=== PATIENT | male | born 1985 | race Two or more races ===

== ENCOUNTER 2016-10-15 13:04 | Emergency (ER) | payer MEDICARE, MEDICAID ==
--- NOTE | 2016-10-15 14:27 | ED ---
HPI Chest Pain - HPI Summary HPI Summary: Patient presents for evaluation of blood loss and chest pain. Blood loss is from the R AV graft last night when nearly finished with home hemodialysis. He felt as if nearly a pint of blood dropped on the floor before achieving hemostasis. Feels weak after the blood loss. Has had intermittent L chin paresthesia and inferior sternal chest pain for a while. Chest pain is palpable and non radiating. Paresthesia to the chin is intermittent after dialysis. No allev factors attempted for the chest pain. Pressure held for hemostasis to the AV graft. - History of Current Complaint Chief Complaint: EDChestPainROMI Time Seen by Provider: 10/15/16 14:13 Hx Obtained From: Patient, Family/Corporate Investigator - Girlfriend Onset/Duration: Started Days Ago Pain Intensity: 5 - Allergy/Home Medications Allergies/Adverse Reactions: Allergies Allergy/AdvReac Type Severity Reaction Status Date / Time Cephalexin [From Keflex] Allergy Unknown Unknown Verified 06/09/15 08:48 Reaction Details Penicillin V Allergy Unknown Unknown Verified 06/09/15 08:48 [From Penicillin VK Reaction Potassium] Details Vancomycin Allergy Unknown Unknown Verified 06/09/15 08:48 Reaction Details Cefazolin [From Ancef] Allergy Unknown Verified 06/09/15 08:48 Reaction Details Wasp Venom Protein Allergy Anaphylatic Verified 06/09/15 08:48 Shock contrast dyle Allergy Unknown Unknown Uncoded 06/09/15 08:48 Reaction Details PMH/Surg Hx/FS Hx/Imm Hx Endocrine/Hematology History: Reports: Hx Anticoagulant Therapy - HEPARIN DURING DIALYSIS, Hx Thyroid Disease - PARTIAL PARATHYROIDECTOMY Denies: Hx Diabetes Cardiovascular History: Reports: Hx Angina, Hx Hypertension Denies: Hx Coronary Artery Disease, Hx Hypercholesterolemia, Hx Myocardial Infarction, Hx Pacemaker/ICD, Hx Valvular Heart Disease Respiratory History: Denies: Hx Asthma, Hx Chronic Obstructive Pulmonary Disease (COPD) History: Reports: Hx Chronic Renal Failure - hemodialysis, Hx Renal Disease - dialysis , , wed Neurological History: Denies: Hx Dementia, Hx Seizures Psychiatric History: Denies: Hx Substance Abuse Infectious Disease History: Yes Infectious Disease History: Denies: Hx Hepatitis, Hx Human Immunodeficiency Virus (HIV), Traveled Outside the [place] in Last 30 Days - Social History Alcohol Use: Occasionally Substance Use Type: Reports: None Smoking Status (MU): Light Every Day Tobacco Smoker Review of Systems All Other Systems Reviewed And Are Negative: Yes Physical Exam Triage Information Reviewed: Yes Vital Signs On Initial Exam: Initial Vitals Temp Pulse Resp BP Pulse Ox 98.1 F 80 20 137/87 100 10/15/16 13:16 10/15/16 13:16 10/15/16 13:16 10/15/16 13:16 10/15/16 13:16 Vital Signs Reviewed: Yes Appearance: Positive: Well-Appearing, No Pain Distress, Well-Nourished Skin: Positive: Warm, Skin Color Reflects Adequate Perfusion, Dry, Other - R anterior thigh thrill at AVG Eyes: Positive: Normal, EOMI, ROC, Conjunctiva Clear Respiratory/Lung Sounds: Positive: Clear to Auscultation, Breath Sounds Present , Other - Reproducible inferior sternal chest ttp. Cardiovascular: Positive: Normal, RRR, Pulses are Symmetrical in both Upper and Lower Extremities Abdomen Description: Positive: Nontender, No Organomegaly, Soft Musculoskeletal: Positive: Normal, Strength/ROM Intact Neurological: Positive: Normal, Sensory/Motor Intact, Alert, Oriented to Person Place, Time, CN Intact II-III, Reflexes Intact, NV Bundle Intact Distally, Normal Gait. Negative: Babinski Bilateral, Cerebellar Dysfunction - [place] Coma Scale Coma Scale Total: 15 Diagnostics - Vital Signs Vital Signs Temp Pulse Resp BP Pulse Ox 10/15/16 13:16 98.1 F 80 20 137/87 100 - Laboratory Result Diagrams: 10/15/16 14:45 10/15/16 14:45 Lab Statement: Any lab studies that have been ordered have been reviewed, and results considered in the medical decision making process. Chest Pain Course/Dx - Chest Pain Differential Diagnosis/HQI/PQRI: Chest Wall, Other: - CXR, TNI, EKG for the chest pain. CBC for the blood loss. Electrolytes for the paresthesia, but otherwise, DC home. - Diagnoses Provider Diagnoses: Weakness Discharge - Discharge Plan Condition: Stable Disposition: HOME Patient Education Materials: End Stage Kidney Disease (ED) Referrals: David Orantes MD [Primary Care Provider] -
[2016-10-15 15:00] LABS: Hematocrit 27 % (42-52); Hemoglobin 9.1 g/dl (14.0-18.0); Mean Corpuscular HGB Conc 33 g/dl (31-36); Mean Corpuscular Hemoglobin 32 pg (27-31); Mean Corpuscular Volume 97 fL (80-94); Mean Platelet Volume 9 um3 (7.4-10.4); Red Blood Count 2.83 10^6/ul (4.0-5.4); Red Cell Distribution Width 18 % (10.5-15); White Blood Count 4.8 10^3/ul (3.5-10.8)
--- NOTE | 2016-10-15 15:13 | RAD ---
INDICATION: Chest pain. COMPARISON: Comparison is made with prior chest x-ray studies from July 16, 2011, April 14, 2013 and July 15, 2015. Correlation is also made with a prior CT of the abdomen and pelvis from February 06, 2012. TECHNIQUE: Dual-energy PA and lateral views of the chest were obtained. FINDINGS: The heart is within normal limits in size. There is a prominent nodular density present in the right paratracheal region at the level of the azygos arch. This is unchanged from the prior 2 studies. On the prior CT exam there is enlargement of the azygos vein possibly related to obstruction of the inferior vena cava which appears small. The lungs are clear. No pleural effusion or pneumothorax is seen. There is flattening of the diaphragms. IMPRESSION: 1. NO EVIDENCE FOR ACUTE FINDING. 2. FOCAL NODULAR DENSITY IN THE MEDIASTINUM IN THE RIGHT PARATRACHEAL REGION LIKELY REPRESENTING A PROMINENT AZYGOS VEIN NOTED ABOVE. THIS IS UNCHANGED AND COULD BE FURTHER EVALUATED WITH A CT OF THE CHEST, ABDOMEN AND PELVIS WITH IV CONTRAST IF NEEDED.
[2016-10-15 15:27] LABS: Albumin 4.2 g/dL (3.2-5.2); Calcium 6.8 mg/dL (8.6-10.3); EGFR African American 4.8 (>60); EGFR Non-African American 3.7 (>60); Globulin 2.9 g/dL (2-4); Potassium 4.6 mmol/L (3.5-5.0); Total Bilirubin 0.5 mg/dL (0.2-1.0); Total Protein 7.1 g/dL (6.4-8.9)
[2016-10-15 17:48] VITALS: BP 108/63
== END 2016-10-15 17:47 | disposition home or self-care (01) ==
LOC: ED 13:04
DX: R53.1 Weakness (principal); I12.0 Hypertensive chronic kidney disease with stage 5 chronic kidney disease or end stage renal disease; N18.6 End stage renal disease; Z99.2 Dependence on renal dialysis; F17.210 Nicotine dependence, cigarettes, uncomplicated; Z79.01 Long term (current) use of anticoagulants; Z88.0 Allergy status to penicillin; Z88.1 Allergy status to other antibiotic agents
CPT/HCPCS: 36415; 71020; 80053; 83735; 84484; 85027; 93005; 99282

== ENCOUNTER 2016-10-19 15:37 | Inpatient (IN) | payer MEDICARE, MEDICAID ==
[2016-10-19] MEDS ORDERED: Aspirin Low Dose CHEW TAB* 81 MG PO ONE (16:02)
--- NOTE | 2016-10-19 16:40 | RAD ---
Indication: Chest pain. Single frontal view of the chest performed at 1610 hours was reviewed. Comparison is made with previous exam dated October 15, 2016. No mediastinal shift is noted. Heart is of normal size and configuration. Lung jacinto appear clear. Again noted is a paramediastinal nodule likely represent prominent azygos vein which has been present as far back as 2010. No definite pneumonia is noted. IMPRESSION: NO ACTIVE CARDIOPULMONARY DISEASE IS NOTED.
[2016-10-19 18:05] LABS: Hematocrit 27 % (42-52); Mean Corpuscular HGB Conc 33 g/dl (31-36); Mean Corpuscular Hemoglobin 32 pg (27-31); Mean Corpuscular Volume 97 fL (80-94); Mean Platelet Volume 9 um3 (7.4-10.4); Red Cell Distribution Width 18 % (10.5-15); White Blood Count 5.8 10^3/ul (3.5-10.8)
[2016-10-19 18:20] LABS: ALT 15 U/L (7-52); Albumin 4.3 g/dL (3.2-5.2); Alkaline Phosphatase 60 U/L (34-104); BUN/Creatinine Ratio 6.1 (8-20); Blood Urea Nitrogen 111 mg/dL (6-24); CO2 Carbon Dioxide 21 mmol/L (22-32); Chloride 95 mmol/L (101-111); EGFR African American 3.9 (>60); EGFR Non-African American 3.1 (>60); Globulin 3.2 g/dL (2-4); Glucose 116 mg/dL (70-100); Sodium 132 mmol/L (133-145); Total Protein 7.5 g/dL (6.4-8.9)
[2016-10-19] MEDS ORDERED: HYDROmorphone INJ* 1 MG/ML CARPUJECT SYRINGE IV ONE (19:29)
--- NOTE | 2016-10-19 19:41 | RAD ---
Indication: Pleuritic chest pain. CT of the chest was performed after IV contrast administration. Coronal and sagittal reconstructed images were obtained. Inferior thyroid lobes are unremarkable. No mediastinal or hilar adenopathy is noted. The heart demonstrates no pericardial effusion. Prominent azygos vein is noted. The lung jacinto demonstrate no evidence of alveolar consolidation. The trachea and major bronchi appear patent. Bibasilar atelectasis is noted. There is dilated azygos vein noted. IMPRESSION: Bibasilar atelectasis. Prominent azygos veins. No pulmonary lesions are noted. No pericardial effusion is noted.
--- NOTE | 2016-10-19 20:40 | ED ---
Donna Storey Anna, scryuried for Chiqui Sanchez MD on 10/19/16 at 1624 . Progress - Progress Note Progress Note: Patient is a 31 y/o male coming to [facility] presenting with chest pain that began one week ago. He has additionally been experiencing coughing. The pain is exacerbated by deep breaths. Denies previous DVT, PE. His last dialysis treatment was yesterday at home. He was seen at [facility] for chest pain one week ago. Course/Dx - Diagnoses Provider Diagnoses: Chest pain The documentation as recorded by the Donna banks Anna accurately reflects the service I personally performed and the decisions made by , Chiqui Sanchez MD.
--- NOTE | 2016-10-19 20:42 | ED ---
Donna Storey Anna, scribed for Chiqui Sanchez MD on 10/19/16 at 1835 . HPI Chest Pain - HPI Summary HPI Summary: Patient is a 31 y/o male coming to [facility] presenting with gradual onset of worsening upper left-sided CP that began one week ago. He describes the severity of the pain as 7/10 currently, increased from 5/10 last week. He has been coughing. The pain is exacerbated by deep breaths and lying flat. Denies SOB, DVT, PE, or recent travel. His last dialysis treatment was yesterday. He has been on dialysis 4x/week for 16 years. He experienced similar chest pain in 2011, when he was diagnosed with pericarditis. - History of Current Complaint Chief Complaint: EDChestPainROMI Time Seen by Provider: 10/19/16 18:28 Hx Obtained From: Patient Onset/Duration: Started Weeks Ago Timing: Constant - Allergy/Home Medications Allergies/Adverse Reactions: Allergies Allergy/AdvReac Type Severity Reaction Status Date / Time Cephalexin [From Keflex] Allergy Unknown Unknown Verified 10/19/16 15:40 Reaction Details Penicillin V Allergy Unknown Unknown Verified 10/19/16 15:40 [From Penicillin VK Reaction Potassium] Details Vancomycin Allergy Unknown Unknown Verified 10/19/16 15:40 Reaction Details Cefazolin [From Ancef] Allergy Unknown Verified 10/19/16 15:40 Reaction Details Wasp Venom Protein Allergy Anaphylatic Verified 10/19/16 15:40 Shock contrast dyle Allergy Unknown Unknown Uncoded 10/19/16 15:40 Reaction Details PMH/Surg Hx/FS Hx/Imm Hx Endocrine/Hematology History: Reports: Hx Anticoagulant Therapy - HEPARIN DURING DIALYSIS, Hx Thyroid Disease - PARTIAL PARATHYROIDECTOMY Denies: Hx Diabetes Cardiovascular History: Reports: Hx Angina, Hx Hypertension Denies: Hx Coronary Artery Disease, Hx Hypercholesterolemia, Hx Myocardial Infarction, Hx Pacemaker/ICD, Hx Valvular Heart Disease Respiratory History: Denies: Hx Asthma, Hx Chronic Obstructive Pulmonary Disease (COPD) History: Reports: Hx Chronic Renal Failure - hemodialysis, Hx Renal Disease - dialysis tues, thurs, sat Neurological History: Denies: Hx Dementia, Hx Seizures Psychiatric History: Denies: Hx Substance Abuse Infectious Disease History: No Infectious Disease History: Denies: Hx Hepatitis, Hx Human Immunodeficiency Virus (HIV), Traveled Outside the US in Last 30 Days - Family History Known Family History: Negative: Cardiac Disease - Social History Occupation: Employed Full-time - [employer] Lives: With Family - with girlfriend Alcohol Use: None Substance Use Type: Reports: None Hx Tobacco Use: No Smoking Status (MU): Never Smoked Tobacco Review of Systems Positive: Chest Pain Positive: Cough. Negative: Shortness Of Breath All Other Systems Reviewed And Are Negative: Yes Physical Exam Triage Information Reviewed: Yes Vital Signs On Initial Exam: Initial Vitals Temp Pulse Resp BP Pulse Ox 98.4 F 83 20 129/86 100 10/19/16 15:40 10/19/16 15:40 10/19/16 15:40 10/19/16 15:40 10/19/16 15:40 Vital Signs Reviewed: Yes Appearance: Positive: Well-Appearing, No Pain Distress Skin: Positive: Warm, Skin Color Reflects Adequate Perfusion, Dry Eyes: Positive: EOMI, ROC ENT: Positive: Pharynx normal, TMs normal Neck: Positive: Supple, Nontender Respiratory/Lung Sounds: Positive: Clear to Auscultation, Breath Sounds Present. Negative: Rales, Rhonchi, Wheezes Cardiovascular: Positive: RRR, Other - no gallops. Negative: Murmur, Rub Abdomen Description: Positive: Nontender, Soft Bowel Sounds: Positive: Present Musculoskeletal: Positive: Strength/ROM Intact. Negative: Edema Left, Edema Right Neurological: Positive: Sensory/Motor Intact, Alert, Oriented to Person Place, Time, CN Intact II-III - II-XII Psychiatric: Positive: Affect/Mood Appropriate - Shari Coma Scale Coma Scale Total: 15 Diagnostics - Vital Signs Vital Signs Temp Pulse Resp BP Pulse Ox 10/19/16 17:19 121 17 95 10/19/16 17:17 128/83 10/19/16 15:40 98.4 F 83 20 129/86 100 - Laboratory Lab Results: Lab Results 10/19/16 10/19/16 10/19/16 Range/Units 15:35 15:35 15:35 WBC 5.8 (3.5-10.8) 10^3/ul RBC 2.80 L (4.0-5.4) 10^6/ul Hgb 9.0 L (14.0-18.0) g/dl Hct 27 L (42-52) % MCV 97 H (80-94) fL MCH 32 H (27-31) pg MCHC 33 (31-36) g/dl RDW 18 H (10.5-15) % Plt Count 153 (150-450) 10^3/ul MPV 9 (7.4-10.4) um3 Neut % (Auto) 66.8 (38-83) % Lymph % (Auto) 14.6 L (25-47) % Breathitt % (Auto) 6.6 (1-9) % Eos % (Auto) 10.6 H (0-6) % Baso % (Auto) 1.4 (0-2) % Absolute Neuts (auto) 3.8 (1.5-7.7) 10^3/ul Absolute Lymphs (auto) 0.8 L (1.0-4.8) 10^3/ul Absolute Monos (auto) 0.4 (0-0.8) 10^3/ul Absolute Eos (auto) 0.6 (0-0.6) 10^3/ul Absolute Basos (auto) 0.1 (0-0.2) 10^3/ul Absolute Nucleated RBC 0 10^3/ul Nucleated RBC % 0.1 Sodium 132 L (133-145) mmol/L Potassium TNP Chloride 95 L (101-111) mmol/L Carbon Dioxide 21 L (22-32) mmol/L Anion Gap TNP BUN 111 H (6-24) mg/dL Creatinine 18.20 H (0.67-1.17) mg/dL Est GFR ( Amer) 3.9 (>60) Est GFR (Non-Af Amer) 3.1 (>60) BUN/Creatinine Ratio 6.1 L (8-20) Glucose 116 H (70-100) mg/dL Lactic Acid 1.4 (0.5-2.0) mmol/L Calcium 6.0 L* (8.6-10.3) mg/dL Total Bilirubin 0.50 (0.2-1.0) mg/dL AST TNP ALT 15 (7-52) U/L Alkaline Phosphatase 60 (34-104) U/L Troponin I 0.00 (<0.04) ng/mL Total Protein 7.5 (6.4-8.9) g/dL Albumin 4.3 (3.2-5.2) g/dL Globulin 3.2 (2-4) g/dL Albumin/Globulin Ratio 1.3 (1-3) Result Diagrams: 10/19/16 15:35 10/19/16 15:35 Lab Statement: Any lab studies that have been ordered have been reviewed, and results considered in the medical decision making process. - Radiology CXR Xray Interpretation: No Acute Changes Radiology Interpretation Completed By: Radiologist - CT CT chest CT Interpretation: Positive (See Comments) CT Interpretation Completed By: Radiologist - IMPRESSION: Bibasilar atelectasis. Prominent azygos veins. No pulmonary lesions are noted. No pericardial effusion is noted. - EKG 1542 Cardiac Rate: NL - 81 bpm EKG Rhythm: Sinus Rhythm EKG Interpretation: No ST elevation EKG Comparison: No Significant Change - compared to EKG from 10/15/2016 Re-Evaluation - Re-Evaluation First Eval Re-Evaluation Time: 19:51 Comment: Discussed results and plan of care with patient. Patient agrees with plan. Chest Pain Course/Dx - Course Course Of Treatment: Pt has contrast allergy, did do a non contrasted study that eliminated a large pericardial effusion which patient was very concerned about. Pt may need a cta for this pleuritic pain and so the case was discussed with Dr. Boyd who will see him - Diagnoses Provider Diagnoses: Chest pain Discharge - Discharge Plan Condition: Stable Disposition: ADMITTED TO [facility] Patient Education Materials: Chest Pain (ED) Referrals: David Orantes MD [Primary Care Provider] - Additional Instructions: Follow up with primary care provider within 48 hours. Return to the emergency department for any new or worsening symptoms. The documentation as recorded by the Donna banks Anna accurately reflects the service I personally performed and the decisions made by me, Chiqui Sanchez MD.
[2016-10-19 21:08] LABS: Troponin I 0.01 ng/mL (<0.04)
[2016-10-19] MEDS ORDERED: Acetaminophen TAB* 325 MG PO PRN (21:39)
[2016-10-19] MEDS ORDERED: Zolpidem TAB* 10 MG PO PRN (21:39)
[2016-10-19] MEDS ORDERED: Morphine INJ* 2 MG/ML 1 ML CARPUJECT IV PRN (21:43)
[2016-10-19] MEDS ORDERED: Calcium Gluconate INJ* 1 GM in NS 0.9% 50 ML* 50 ML IVPB ONE (21:43)
[2016-10-19] MEDS: Heparin VIAL(*) 5000 UNITS/ML VIAL (FIVE THOUSAND) SUBCUT SCH (23:46)
[2016-10-20] MEDS ORDERED: HYDROmorphone INJ* 1 MG/ML CARPUJECT SYRINGE IV SLOW PU ONE (01:08)
[2016-10-20 03:06] LABS: EGFR African American 3.7 (>60); EGFR Non-African American 2.9 (>60); Potassium 5.3 mmol/L (3.5-5.0)
[2016-10-20 03:08] LABS: Calcium 6.1 mg/dL (8.6-10.3)
[2016-10-20] MEDS: HYDROmorphone INJ* 1 MG/ML CARPUJECT SYRINGE IV SLOW PU PRN ×3 (04:08→19:30)
[2016-10-20] MEDS: Heparin VIAL(*) 5000 UNITS/ML VIAL (FIVE THOUSAND) SUBCUT SCH ×2 (05:50→13:02)
[2016-10-20] MEDS: Vitamin B Complex TAB PO SCH (08:28)
[2016-10-20] MEDS: Calcium Acetate CAP* 667 MG PO SCH ×2 (08:28→13:02)
[2016-10-20] MEDS: Folic Acid TAB* 1 MG PO SCH (08:28)
[2016-10-20] MEDS: Calcium Carbonate CHEW TAB* 500 MG (TUMS) PO SCH (08:28)
[2016-10-20] MEDS: Calcitriol CAP* 0.25 MCG PO SCH (08:28)
--- NOTE | 2016-10-20 08:56 | HP ---
DATE OF ADMISSION: 10/19/16 CHIEF COMPLAINT: Chest pain. HISTORY OF PRESENT ILLNESS: The patient is a 31-year-old gentleman who said last day he started developing chest pain at home. It has progressively gotten worse. At its worse, it was 7/10 in severity. He says it was reminiscent of when he had pericarditis back in 2011. At that time, he had to be transferred and have it drained at [place]. It's not as bad as it was then , but the pain is somewhat similar. He says it is somewhat better when he leans forward as opposed to laying flat. He has no nausea, vomiting, no sweating. He's taken Tylenol which doesn't seem to help. He notes that a week before this all happened, had had a fistulogram with angioplasty under general anesthesia done at [place]. PAST MEDICAL HISTORY: Significant for 1. Polycystic kidney disease. 2. Three-quarters of his parathyroid has been removed. CURRENT MEDICATIONS: 1. Tums 2500 mg twice daily. 2. Calcitriol 0.5 mcg twice daily. 3. Calcium acetate 3335 mg 3x a day. 4. Nephro-Leticia one tablet daily. 5. Tylenol 175 mg every 6 hours as needed. 6. Epogen 10,000 units twice weekly. 7. Zolpidem 10 mg at bedtime as needed.. ALLERGIES/ADVERSE REACTIONS: 1. IV CONTRAST DYE, which he says is anaphylaxis. 2. CEPHALEXIN. 3. PENICILLIN. 4. CEPHAZOLIN. 5. Vancomycin 6. Wasp venom protein FAMILY HISTORY: Mother at 58; was blind. Father at 42, had an AK. SOCIAL HISTORY: Quit 2013, one-quarter pack per day for 12 years. No alcohol or recreational drug use. He works at [employer]. He is not , has no children; his girlfriend, Donna Terrell, , is his health care proxy. REVIEW OF SYSTEMS: A 14-point review of systems is completed with the patient. All pertinent positives and negatives are in the history of present illness; otherwise it is negative. PHYSICAL EXAMINATION GENERAL: A pleasant gentleman lying in bed in no acute distress. VITAL SIGNS: Blood pressure 129/86, pulse ox 100% on room air, respiratory rate 20 breaths per minute, heart rate 83 beats per minute, temperature 98.4 Degrees. HEENT: Normocephalic and atraumatic. Pupils are equal, round and reactive to light. Moist mucous membranes. NECK: Supple. No JVD, bruits, palpable thyroid or lymphadenopathy. CHEST: Clear to auscultation and percussion bilaterally. CARDIOVASCULAR: S1, S2 appreciated. ABDOMEN: Positive bowel sounds in all four quadrants. Soft, nontender, and nondistended. EXTREMITIES: No cyanosis, clubbing, or edema. NEUROLOGIC: Alert and oriented x3. Moves all extremities. SKIN: No distinct rashes or abnormalities. LABORATORY DATA: White blood cell count 5.8, hemoglobin 9.0, hematocrit 27, platelets 153. Sodium 132, chloride 95, CO2 21, BUN 111, creatinine 18.2, glucose 116, calcium 6.0. Troponin zero. D-dimer 753. EKG shows normal sinus rhythm at 81 beats/minute, normal axis, no acute ST-T wave changes. Chest x-ray shows no active cardiopulmonary disease is noted. Chest CT shows bibasilar atelectasis, pulmonary azygous veins, no pulmonary lesions are noted, no pericardial effusion noted. ASSESSMENT AND PLAN: 1. Chest pain - patient does have a history of pericarditis, but I do not detect any rubs and his EKG is pretty unremarkable. I will treat him right now with Dilaudid prn for pain. No NSAIDs at this point with his history of renal failure. I will get an echocardiogram in the morning. I've also ordered a venous VQ scan because of the patient's elevated D-dimer, although I have a low suspicion for PE. 2. End-stage renal disease - continue hemodialysis. 3. Hypocalcemia - we will replete calcium with calcium gluconate. 4. FEN - regular renal diet. 5. DVT prophylaxis - heparin subcu. 6. The patient is a full code. TIME SEEN: Over 75 minutes were spent on this H and P, more than 40 minutes of which were spent in direct [id number] contact with the patient in evaluation, physical exam, counseling, and coordination of care. CC: Dr. David Orantes * [id number]/CPS #: [id number] MTDD
[2016-10-20] MEDS ORDERED: NON FORMULARY MED* (B-Complex W/ C & Folic Acid [Nephro-Vite 0.8 Mg] 1 TAB) PO SCH (09:00)
[2016-10-20] MEDS ORDERED: Calcium Gluconate INJ* 2 GM in NS 0.9% 100 ML* 100 ML IV ONE (09:30)
--- NOTE | 2016-10-20 10:35 | ECHO ---
Patient: MARICHUY HATFIELD [facility] Rec#: [id number] : 1985 Date: 10/20/2016 Age: 31y Height: 157.48 cm / 62.0 in Weight: 64.41 kg / 142.0 lbs Sex: M BSA: 1.65 Room#: 432 Admit Date#: 10/19/2016 Type: Inpatient Referring: Juvenal Boyd MD Reading: Chente Hendricks MD Web Support Engineer: Dea Queen Web Support Engineer: Jen Mclean RN RDCS CC: David Orantes MD Transthoracic Echocardiogram Indication: Chest pain BP: 116/67 HR: 80 Rhythm: NSR Findings History: HTN, pericarditis 2011, Chronic Renal failure with dialysis, failed kidney transplant x2, partial parathyroidectomy. Technical Comments: The study quality is fair. Completed at 0940. Left Ventricle: The left ventricular chamber size is normal. Global left ventricular wall motion and contractility are within normal limits. Left ventricular systolic function is at the lower limits of normal. The estimated ejection fraction is 50-55%. Normal left ventricular diastolic filling is observed. Left Atrium: The left atrial chamber size is normal. Right Ventricle: The right ventricular cavity size is normal. The right ventricular global systolic function is low normal. Right Atrium: The right atrial cavity size is normal. Aortic Valve: The aortic valve is trileaflet. There is no evidence of aortic valve thickening. There is a trace of aortic regurgitation. There is no evidence of aortic stenosis. Mitral Valve: The mitral valve leaflets are mildly thickened. There is mild to moderate mitral regurgitation. There is no evidence of mitral stenosis. Tricuspid Valve: The tricuspid valve leaflets are normal. There is mild to moderate tricuspid regurgitation. There is evidence of mild pulmonary hypertension. There is no tricuspid stenosis. Pulmonic Valve: The pulmonic valve appears normal. There is a trace pulmonic regurgitation. There is no pulmonic stenosis. Pericardium: There is no significant pericardial effusion. Aorta: There is no dilatation of the ascending aorta. The aortic arch is not well visualized. There is no dilation of the aortic root. Pulmonary Artery: The main pulmonary artery appears normal. Venous: The inferior vena cava appears normal in size. There is an approximate 50% respiratory change in the inferior vena cava dimension. Conclusions Global left ventricular wall motion and contractility are within normal limits. Left ventricular systolic function is at the lower limits of normal. The estimated ejection fraction is 50-55%. Normal left ventricular diastolic filling is observed. The right ventricular global systolic function is low normal. There is a trace of aortic regurgitation. There is mild to moderate mitral regurgitation. There is mild to moderate tricuspid regurgitation. There is evidence of mild pulmonary hypertension. There is no significant pericardial effusion. Compard to study of 03/31/12, the LV function and valve function are the same. The previously seen large pericardial effusion is not present Measurements Name Value Normal Range RVDdMajor (2D) 3.5 cm (2.2 - 4.4) RAd ISD 4CH 4.6 cm (3.4 - 4.9) RA (A4C)W 3.6 cm (2.9 - 4.6) IVSd (2D) 0.7 cm (0.6 - 1) LVPWd (2D) 1 cm (0.6 - 1) LVIDd (2D) 4.1 cm (3.6 - 5.4) LVIDs (2D) 2.9 cm - LV FS (2D) 29 % (25 - 45) Aortic Annulus 1.8 cm (1.4 - 2.6) Ao root diameter (2D) 2.3 cm (2.1 - 3.5) Ascending Ao 2.4 cm (2.1 - 3.4) LA dimension (AP) 2D 4 cm (2.3 - 3.8) LAd ISD 4CH 4.8 cm (2.9 - 5.3) LA ISD 4CH W 4.4 cm (2.5 - 4.5) Name Value Normal Range LA ESV SP 4CH (A/L) 47 ml - LA ESV SP 2CH (A/L) 43 ml - LA ESV BP (A/L) 48 ml - LA ESV BP (A/L) index 28.84 ml/m2 - LA ESV SP 4CH (MOD) 45 ml - LA ESV SP 2CH (MOD) 42 ml - Name Value Normal Range MV E-wave Vmax 1.4 m/sec - MV deceleration time 194 msec - MV A-wave Vmax 0.6 m/sec - MV E:A ratio 2.2 ratio - LV septal e' Vmax 0.15 m/sec - LV lateral e' Vmax 0.16 m/sec - LV E:e' septal ratio 9.33 ratio - LV E:e' lateral ratio 8.75 ratio - Name Value Normal Range AV Vmax 1.3 m/sec - AV VTI 26.5 cm - AV peak gradient 6.85 mmHg - AV mean gradient 3.54 mmHg - LVOT Vmax 1.1 m/sec - LVOT VTI 20.19 cm - LVOT peak gradient 4.83 mmHg - LVOT mean gradient 2.63 mmHg - Name Value Normal Range TR Vmax 2.74 m/sec - TR peak gradient 30 mmHg - RAP 8 mmHg - RVSP 38 mmHg - IVC diameter 1.4 cm - Name Value Normal Range PV Vmax 0.87 m/sec - PV peak gradient 3.05 mmHg -
--- NOTE | 2016-10-20 10:58 | RAD ---
HISTORY: Chest pain, rule out PE COMPARISON: CT dated October 19, 2016 TECHNIQUE: Pulmonary ventilation/perfusion scintigraphy was performed with dynamic cine images and multiple planar images. DOSE: Ventilation: Xenon-133 10.9 millicuries, administered at 8:55 AM on October 20, 2016 Perfusion: Technetium 99m microaggregated albumin 6.1 millicuries, administered at 8:55 AM on October 20, 2016 FINDINGS: Ventilation: Homogeneous Perfusion: No unmatched defects IMPRESSION: NO UNMATCHED PERFUSION DEFECTS TO SUGGEST PULMONARY EMBOLISM
--- NOTE | 2016-10-20 12:46 | PN ---
Subjective Date of Service: 10/20/16 Interval History: Patient seen this morning. Reports continued chest pain, mostly unchanged although improves with IV pain medications and leaning forward. Couldn't tolerate PO this morning with N/V. Family History: Unchanged from Admission Social History: Unchanged from Admission Past Medical History: Unchanged from Admission Objective Active Medications: Acetaminophen (Tylenol Tab*) 975 mg PO Q6HR PRN Calcitriol (Rocaltrol Cap*) 0.5 mcg PO BID [facility] Calcium Acetate (Phoslo Cap*) 3,335 mg PO TID [facility] Calcium Carbonate (Tums*) 2,500 mg PO BID [facility] Folic Acid (Folvite Tab*) 1 mg PO DAILY [facility] Heparin Sodium (Porcine) (Heparin Vial(*)) 5,000 units SUBCUT Q8HR [facility] Hydromorphone HCl (Dilaudid Iv*) 1 mg IV SLOW PU Q4H PRN Morphine Sulfate (Morphine Inj (Syringe)*) 2 mg IV Q2H PRN Vitamin B Complex/Vitamin E (Complex B-100*) 1 tab PO DAILY [facility] Zolpidem Tartrate (Ambien Tab*) 10 mg PO BEDTIME PRN Vital Signs 10/19/16 10/19/16 10/19/16 22:00 22:30 22:51 Temperature 98.2 F Pulse Rate 79 77 Respiratory 21 20 18 Rate Blood Pressure 128/77 134/86 (mmHg) O2 Sat by Pulse 97 98 Oximetry 10/19/16 10/19/16 10/19/16 23:00 23:30 23:44 Temperature 97.6 F Pulse Rate 76 73 Respiratory 18 18 18 Rate Blood Pressure 121/78 136/87 (mmHg) O2 Sat by Pulse 98 100 Oximetry 10/20/16 10:48 Temperature Pulse Rate 72 Respiratory 16 Rate Blood Pressure 125/80 (mmHg) O2 Sat by Pulse Oximetry Oxygen Devices in Use Now: None Appearance: Young man, sitting in bed in NAD Eyes: No Scleral Icterus Ears/Nose/Mouth/Throat: Mucous Membranes Moist Neck: NL Appearance and Movements; NL JVP Respiratory: Symmetrical Chest Expansion and Respiratory Effort, - - Diminished in bases Cardiovascular: RRR, - - ?mild rub Abdominal: NL Sounds; No Tenderness; No Distention Lymphatic: No Cervical Adenopathy Extremities: No Edema Neurological: Alert and Oriented x 3 Result Diagrams: 10/19/16 15:35 10/20/16 02:20 Additional Lab and Data: Microbiology and Other Data: Microbiology 10/19/16 23:00 Nasal Screen MRSA (PCR)(MONSE) - Final Nasal Mrsa Negative Assess/Plan/Problems-Billing Assessment: Chest pain likely 2/2 mild pericarditis, hypocalcemia in a 31 yo M with hx of polycystic kidney disease on home HD - Patient Problems (1) Pericarditis Current Visit: Yes Comment: VQ scan, CT scan negative. Troponins negative. No effusion on echo. Patient refusing NSAIDs, will treat with Prednisone 40 mg daily. Will transition to PO pain medications. (2) Hypocalcemia Current Visit: Yes Comment: Significant. Redose with IV calcium gluconate. Recheck now. Continue home medications. (3) Polycystic kidney disease Current Visit: Yes Comment: on home HD. Spoke with Dr. Orantes, plan for HD tomorrow 10/21 (4) DVT prophylaxis Current Visit: Yes Comment: HSQ Status and Disposition: Inpatient for pericarditis, hypocalcemia, N/V
[2016-10-20] MEDS: predniSONE TAB* 20 MG PO SCH (13:02)
[2016-10-20 14:12] LABS: EGFR African American 3.6 (>60); EGFR Non-African American 2.8 (>60)
[2016-10-20] MEDS ORDERED: Sodium Polystyrene ORAL.SOL* 15 GM/60 ML BTL PO ONE (15:00)
[2016-10-20 15:34] LABS: Phosphorus 7.4 mg/dL (2.5-5.0)
[2016-10-20 18:35] LABS: Calcium 7.4 mg/dL (8.6-10.3); EGFR African American 3.6 (>60); EGFR Non-African American 2.8 (>60)
[2016-10-20 18:41] LABS: Potassium 6.6 mmol/L (3.5-5.0)
[2016-10-21] MEDS: oxyCODONE/Acetamin 5/325 MG* TAB PO PRN ×2 (00:02→08:02)
[2016-10-21] MEDS: Calcitriol CAP* 0.25 MCG PO SCH ×2 (00:04→08:02)
[2016-10-21] MEDS: Calcium Carbonate CHEW TAB* 500 MG (TUMS) PO SCH ×2 (00:05→08:01)
[2016-10-21] MEDS: Calcium Acetate CAP* 667 MG PO SCH ×2 (00:07→08:02)
[2016-10-21] MEDS: Heparin VIAL(*) 5000 UNITS/ML VIAL (FIVE THOUSAND) SUBCUT SCH ×3 (00:08→06:26)
[2016-10-21 05:25] LABS: BUN/Creatinine Ratio 5.2 (8-20); Calcium 7.5 mg/dL (8.6-10.3); EGFR African American 5.6 (>60); EGFR Non-African American 4.3 (>60); Potassium 4.6 mmol/L (3.5-5.0)
[2016-10-21 07:35] VITALS: BP 119/75
[2016-10-21] MEDS: Folic Acid TAB* 1 MG PO SCH (08:01)
[2016-10-21] MEDS: Vitamin B Complex TAB PO SCH (08:01)
[2016-10-21] MEDS: predniSONE TAB* 20 MG PO SCH (08:02)
--- NOTE | 2016-10-21 10:21 | DCNOTE ---
K elevated last night, unclear exactly why, underwent HD overnight and again this AM, K normalized. Patient seen at HD. States he is still having some chest discomfort but may be slightly better. Taking PO. No further N/V. On exam, lungs diminished in bases, otherwise clear, RRR, ?minimal rub, no LE edema. D/C home today on Prednisone and analgesics for short term. Should repeat BMP in 2 days. Ca normalized.
--- NOTE | 2016-10-22 00:55 | DS ---
DISCHARGE SUMMARY: DATE OF ADMISSION: 10/19/16 DATE OF DISCHARGE: 10/21/16 PRIMARY CARE PHYSICIAN: Dr. Orantes. PRINCIPAL DISCHARGE DIAGNOSIS: Mild pericarditis. SECONDARY DIAGNOSES: Polycystic kidney disease, on home hemodialysis, history of parathyroidectomy with resultant hypocalcemia. STUDIES DURING HOSPITALIZATION: Chest x-ray, impression: No active cardiopulmonary disease is noted. CT of the chest without contrast, impression : Bibasilar atelectasis, prominent azygous veins, no pulmonary lesions are noted , no pericardial effusion is noted. Transthoracic echocardiogram, conclusions: Normal left ventricular wall motion and contractility, EF 50% to 55%, normal left ventricular diastolic filling, low normal right ventricular global systolic function, trace aortic regurgitation , [id number]-[id number] mitral regurgitation, mild- to-moderate tricuspid regurgitation, mild pulmonary hypertension. No significant pericardial effusion. Compared to study of , the LV function and valve function are same. The previously seen large pericardial effusion is not present. V/Q scan, impression: No unmatched perfusion defects to suggest pulmonary embolism. DISCHARGE MEDICATION REGIMEN: 1. Prednisone 40 mg daily. 2. Percocet 1 tablet by mouth every 4 hours as needed for pain. 3. Ambien 10 mg by mouth at bedtime as needed for insomnia. 4. Epogen 10,000 injection twice weekly. 5. Tylenol 975 mg by mouth every 6 hours as needed for pain. 6. Nephro-Leticia 1 tablet by mouth daily. 7. Calcium acetate 3335 mg by mouth 3 times daily. 8. Calcitriol 0.5 mcg by mouth 2 times daily. 9. Tums 2500 mg by mouth 2 times daily. HISTORY OF PRESENT ILLNESS AND HOSPITAL SUMMARY: Please see the full history and physical by Dr. Juvenal Boyd for full details. Briefly, Mr. Peacock is a 31- year- old male with past medical history of as above as well as a pericarditis with pericardial effusion that required surgical drainage, presents in the hospital with chest pain similar to his previous bout of pericarditis. The patient had negative troponin and no significant EKG changes. He had possibly a mild rub on exam. Imaging as above was negative. The patient refused to take NSAIDs saying that he cannot because of his renal disease and dialysis. He was started on prednisone and transitioned from IV pain medications to oral. The patient was noted to be hyperkalemic during the hospitalization and required more urgent dialysis the night prior to discharge. He was also hypocalcemic on admission, which improved with calcium supplementation in addition to his home medications. The patient will be discharged home to complete a course of oral prednisone, follow up with Dr. Orantes as an outpatient. He was given a prescription to get a BMP checked in 2 days on 10/23/16. TIME SPENT: Total time spent on this discharge on this discharge was 45 minutes. This is the summary of the hospitalization. Please see the full medical record for further details. CC: Dr. Orantes* [id number]/[facility] #: [id number] MTDD
== END 2016-10-21 13:50 | disposition home or self-care (01) | DRG 315 ==
LOC: ED 15:37 → MEDTELE 21:43 → OBSVTOIN 10-20 12:10
PROVIDERS: ADMIT Internal Medicine; ATTEND Hospitalist
PROC: 5A1D00Z (ICD-10-PCS; principal; 2016-10-20)
DX: I31.9 Disease of pericardium, unspecified (principal); Q61.3 Polycystic kidney, unspecified; I27.2 Other secondary pulmonary hypertension; E83.51 Hypocalcemia; E87.5 Hyperkalemia; J98.11 Atelectasis; Z88.0 Allergy status to penicillin; Z88.8 Allergy status to other drugs, medicaments and biological substances; Z91.041 Radiographic dye allergy status; Z91.038 Other insect allergy status; I10 Essential (primary) hypertension; I08.1 Rheumatic disorders of both mitral and tricuspid valves; Z79.52 Long term (current) use of systemic steroids
CPT/HCPCS: 36415; 71010; 71250; 78582; 80048; 80053; 83605; 84100; 84484; 85025; 85379; 87641; 90935; 93005; 93306; 99285; 99406; A9270-GY; A9540; A9558; G0257; J0610; J1170; J1644; J2270; J7512

== ENCOUNTER 2017-01-21 09:23 | Emergency (ER) | payer MEDICARE, MEDICAID ==
--- NOTE | 2017-01-21 09:55 | ED ---
Complex/Multi-Sys Presentation - HPI Summary HPI Summary: Patient has a history of low calcium due to parathyroid damage status post thyroidectomy. Over the last few days he has noticed tingling in his lips and finger tips, as well as a positive Chvostek sign with cheek tap. He denies CP, SOB, KING or lightheadedness. He has been taking his regular medications for supplementation of his calcium. - History Of Current Complaint Chief Complaint: EDGeneral Time Seen by Provider: 01/21/17 09:31 Hx Obtained From: Patient Onset/Duration: Gradual Onset Timing: Constant Severity Currently: Moderate Severity Initially: Mild Associated Signs And Symptoms: Negative: Weakness, Palpitations - Allergies/Home Medications Allergies/Adverse Reactions: Allergies Allergy/AdvReac Type Severity Reaction Status Date / Time Cephalexin [From Keflex] Allergy Unknown Unknown Verified 10/19/16 15:40 Reaction Details Penicillin V Allergy Unknown Unknown Verified 10/19/16 15:40 [From Penicillin VK Reaction Potassium] Details Vancomycin Allergy Unknown Unknown Verified 10/19/16 15:40 Reaction Details Cefazolin [From Ancef] Allergy Unknown Verified 10/19/16 15:40 Reaction Details Wasp Venom Protein Allergy Anaphylatic Verified 10/19/16 15:40 Shock contrast dyle Allergy Unknown Unknown Uncoded 10/19/16 15:40 Reaction Details Home Medications: Home Medications Calcitriol CAP* [Rocaltrol CAP*] 0.5 mcg PO DAILY 01/21/17 [History Confirmed 01/21/17] PMH/Surg Hx/FS Hx/Imm Hx Endocrine/Hematology History: Reports: Hx Anticoagulant Therapy - HEPARIN DURING DIALYSIS, Hx Thyroid Disease - PARTIAL PARATHYROIDECTOMY Denies: Hx Diabetes Cardiovascular History: Reports: Hx Angina, Hx Hypertension, Other Cardiovascular Problems/Disorders - Pericarditis Denies: Hx Coronary Artery Disease, Hx Hypercholesterolemia, Hx Myocardial Infarction, Hx Pacemaker/ICD, Hx Valvular Heart Disease Respiratory History: Denies: Hx Asthma, Hx Chronic Obstructive Pulmonary Disease (COPD) History: Reports: Hx Chronic Renal Failure - hemodialysis 4x/week at home, Hx Renal Disease - dialysis tues, th, sat Sensory History: Reports: Hx Contacts or Glasses Opthamlomology History: Reports: Hx Contacts or Glasses Neurological History: Denies: Hx Dementia, Hx Seizures Psychiatric History: Denies: Hx Substance Abuse - Surgical History Surgery Procedure, Year, and Place: PARTIAL PARATHYROIDECTOMY, L ARM GRAFT, R LEG GRAFT, HEMODYALISIS CATHETER PLACEMENT, KIDNEY TRANSPLANT X2 - Immunization History Date of Tetanus Vaccine: Date of Influenza Vaccine: Fall 2015 Infectious Disease History: No Infectious Disease History: Denies: Hx Hepatitis, Hx Human Immunodeficiency Virus (HIV), Traveled Outside the [place] in Last 30 Days - Family History Known Family History: Positive: None Negative: Cardiac Disease - Social History Occupation: Disabled Lives: With Family Alcohol Use: None Substance Use Type: Reports: None Hx Tobacco Use: No Smoking Status (MU): Former Smoker Type: Cigarettes Amount Used/How Often: 1 pack lasted 4 days Length of Time of Smoking/Using Tobacco: 12 years Have You Smoked in the Last Year: No Review of Systems Negative: Fever, Chills Negative: Chest Pain Negative: Shortness Of Breath Negative: Myalgia Positive: Paresthesia. Negative: Headache, Weakness, Numbness All Other Systems Reviewed And Are Negative: Yes Physical Exam Triage Information Reviewed: Yes Vital Signs On Initial Exam: Initial Vitals Temp Pulse Resp BP Pulse Ox 97.8 F 91 17 127/76 100 01/21/17 09:24 01/21/17 09:24 01/21/17 09:24 01/21/17 09:24 01/21/17 09:24 Vital Signs Reviewed: Yes Appearance: Positive: Well-Appearing, No Pain Distress, Well-Nourished Skin: Positive: Warm, Skin Color Reflects Adequate Perfusion, Dry, Soft Head/Face: Positive: Normal Head/Face Inspection Eyes: Positive: EOMI, ROC, Conjunctiva Clear ENT: Positive: Hearing grossly normal, Pharynx normal Neck: Positive: Supple, Nontender, No Lymphadenopathy Respiratory/Lung Sounds: Positive: Clear to Auscultation, Breath Sounds Present Cardiovascular: Positive: RRR Abdomen Description: Positive: Nontender, Soft Bowel Sounds: Positive: Present Musculoskeletal: Positive: Strength/ROM Intact Neurological: Positive: Sensory/Motor Intact, Alert, Oriented to Person Place, Time, NV Bundle Intact Distally - altered sensation to light touch in finger tips, Normal Gait, Abnormal Reflex @ - +Chvostek sign Psychiatric: Positive: Affect/Mood Appropriate AVPU Assessment: Alert Diagnostics - Vital Signs Vital Signs Temp Pulse Resp BP Pulse Ox 01/21/17 09:24 97.8 F 91 17 127/76 100 - Laboratory Result Diagrams: 01/21/17 10:05 01/21/17 10:05 Lab Statement: Any lab studies that have been ordered have been reviewed, and results considered in the medical decision making process. Complex Multi-Symp Course/Dx - Diagnoses Differential Diagnoses/HQI/PQRI: Aspiration, Cardiac Ischemia, Closed Cranial Trauma, CVA, Metabolic Abnormality, Urinary Tract Infection Provider Diagnoses: Hypocalcemia - Physician Notifications Discussed Care Of Patient With: Dr. Orantes, PCP; Dr. Gifford, ED attending; Dr. Dacosta, [facility]. Time Discussed With Above Provider: 11:50 Instructed by Provider To: Have Pt Call For Appt. Discharge - Discharge Plan Condition: Stable Disposition: HOME Patient Education Materials: Hypocalcemia (ED) Referrals: David Orantes MD [Primary Care Provider] - Additional Instructions: Please call Dr. Orantes's office for an appointment in the next 1-3 days for evaluation. Return to the emergency department if symptoms worsen.
[2017-01-21 10:14] LABS: Hematocrit 42 % (42-52); Hemoglobin 13.5 g/dl (14.0-18.0); Mean Corpuscular HGB Conc 32 g/dl (31-36); Mean Corpuscular Hemoglobin 31 pg (27-31); Mean Corpuscular Volume 97 fL (80-94); Mean Platelet Volume 9 um3 (7.4-10.4); Red Blood Count 4.29 10^6/ul (4.0-5.4); Red Cell Distribution Width 18 % (10.5-15); White Blood Count 5.4 10^3/ul (3.5-10.8)
[2017-01-21 10:29] LABS: Albumin 4.8 g/dL (3.2-5.2); BUN/Creatinine Ratio 4.9 (8-20); Calcium 6.9 mg/dL (8.6-10.3); EGFR African American 4.7 (>60); EGFR Non-African American 3.7 (>60); Globulin 3.3 g/dL (2-4); Potassium 4.5 mmol/L (3.5-5.0); Total Bilirubin 0.6 mg/dL (0.2-1.0); Total Protein 8.1 g/dL (6.4-8.9)
[2017-01-21 11:03] LABS: Calcium (PTH Intact) 6.7 mg/dL (8.6-10.3)
[2017-01-21] MEDS ORDERED: Calcium Gluconate INJ* 3 GM in NS 0.9% 250 ML* 250 ML IVPB ONE (11:55)
[2017-01-21 16:19] VITALS: BP 135/85
== END 2017-01-21 16:43 | disposition home or self-care (01) ==
LOC: ED 09:23
DX: E83.51 Hypocalcemia (principal); Z79.01 Long term (current) use of anticoagulants; I12.9 Hypertensive chronic kidney disease with stage 1 through stage 4 chronic kidney disease, or unspecified chronic kidney disease; N18.4 Chronic kidney disease, stage 4 (severe); Z99.2 Dependence on renal dialysis; Z87.891 Personal history of nicotine dependence
CPT/HCPCS: 36415; 80053; 82310; 83970; 84100; 85025; 93005; 96360; 99282; J0610

== ENCOUNTER 2017-01-25 18:42 | Emergency (ER) | payer MEDICARE, MEDICAID ==
[2017-01-25 20:27] VITALS: BP 120/79
[2017-01-25 20:47] LABS: Hematocrit 40 % (42-52); Hemoglobin 13.1 g/dl (14.0-18.0); Mean Corpuscular HGB Conc 33 g/dl (31-36); Mean Corpuscular Hemoglobin 32 pg (27-31); Mean Corpuscular Volume 98 fL (80-94); Mean Platelet Volume 9 um3 (7.4-10.4); Red Blood Count 4.12 10^6/ul (4.0-5.4); Red Cell Distribution Width 18 % (10.5-15); White Blood Count 5.2 10^3/ul (3.5-10.8)
[2017-01-25 21:01] LABS: Albumin 4.9 g/dL (3.2-5.2); BUN/Creatinine Ratio 4.5 (8-20); Calcium 6.8 mg/dL (8.6-10.3); EGFR African American 4.7 (>60); EGFR Non-African American 3.7 (>60); Globulin 3.1 g/dL (2-4); Potassium 4.3 mmol/L (3.5-5.0); Total Bilirubin 0.6 mg/dL (0.2-1.0)
== END 2017-01-25 22:05 | disposition left against medical advice (07) ==
LOC: ED 18:42
DX: R20.2 Paresthesia of skin (principal); R53.1 Weakness; Z53.20 Procedure and treatment not carried out because of patient's decision for unspecified reasons
CPT/HCPCS: 36415; 80053; 85025; 93005; 99281

== ENCOUNTER 2017-02-08 12:20 | Observation (INO) | payer MEDICARE, MEDICAID ==
[2017-02-08] MEDS ORDERED: HYDROmorphone* 1 MG/ML 1 ML SYR IV ONE (13:32)
[2017-02-08] MEDS ORDERED: Ondansetron INJ* 2 MG/ML VIAL IV ONE (13:32)
[2017-02-08 13:55] LABS: Hematocrit 32 % (42-52); Hemoglobin 10.5 g/dl (14.0-18.0); Mean Corpuscular HGB Conc 33 g/dl (31-36); Mean Corpuscular Hemoglobin 31 pg (27-31); Mean Corpuscular Volume 95 fL (80-94); Mean Platelet Volume 9 um3 (7.4-10.4); Red Blood Count 3.37 10^6/ul (4.0-5.4); Red Cell Distribution Width 16 % (10.5-15); White Blood Count 4.6 10^3/ul (3.5-10.8)
--- NOTE | 2017-02-08 14:13 | RAD ---
INDICATION: Chest pain. COMPARISON: Comparison is made with a prior CT of the chest from October 19, 2016 and prior chest x-ray studies from July 16, 2011 and October 19, 2016. TECHNIQUE: A portable view of the chest was obtained. FINDINGS: The heart is within normal limits in size. There is a right paratracheal nodular density which is unchanged from prior studies and appears to correlate with a prominent azygos vein on the prior CT study. The lungs are clear. No pleural effusion is seen. IMPRESSION: 1. NO EVIDENCE FOR ACUTE FINDING. 2. RIGHT PARATRACHEAL NODULAR DENSITY WHICH IS UNCHANGED AND APPEARS TO CORRELATE WITH A PROMINENT AZYGOS VEIN.
[2017-02-08 14:19] LABS: Albumin 4.3 g/dL (3.2-5.2); BUN/Creatinine Ratio 6.2 (8-20); C Reactive Protein 26.93 mg/L (< 5.00); Calcium 6.8 mg/dL (8.6-10.3); EGFR African American 4.2 (>60); EGFR Non-African American 3.2 (>60); Globulin 2.8 g/dL (2-4); Potassium 5.7 mmol/L (3.5-5.0); Total Bilirubin 0.6 mg/dL (0.2-1.0); Total Protein 7.1 g/dL (6.4-8.9)
--- NOTE | 2017-02-08 15:33 | RAD ---
INDICATION: Swelling right thigh. COMPARISON: Correlation is made with a prior study from March 22, 2012. TECHNIQUE: Multiple real-time, color flow and Doppler tracings of the right lower extremity were obtained. FINDINGS: The common femoral, femoral, profunda femoral and popliteal veins all demonstrate normal augmentation with compression and phasic response with respiration. The right common femoral and distal femoral veins were not compressed due to patient's pain in this area. There is a hemodialysis graft present within the thigh which appears patent. The right external iliac vein appears patent. There is a complex fluid collection present within the proximal thigh measuring 11.2 x 2.2 x 4.5 cm. The posterior tibial and peroneal veins demonstrate normal compressibility and augmentation with compression. IMPRESSION: 1. SLIGHTLY LIMITED EXAM, NO EVIDENCE FOR DEEP VENOUS THROMBOSIS. 2. COMPLEX FLUID COLLECTION IN THE PROXIMAL THIGH SUSPICIOUS FOR A HEMATOMA OR SEROMA.
[2017-02-08] MEDS: oxyCODONE/Acetamin 5/325 MG* TAB PO PRN ×2 (17:28→21:59)
[2017-02-08] MEDS: predniSONE TAB* 20 MG PO SCH (17:29)
--- NOTE | 2017-02-08 19:03 | HP ---
CC: Dr. Orantes * HISTORY AND PHYSICAL: DATE OF ADMISSION: 02/08/17 PRIMARY CARE PHYSICIAN: Dr. Orantes. CHIEF COMPLAINT: Chest pain and thigh pain. HISTORY OF PRESENT ILLNESS: Mr. Peacock is a 31-year-old male with past medical history of polycystic kidney disease, status post renal transplant x2 that has failed now; end-stage renal disease, on hemodialysis; parathyroidectomy ; and pericarditis who presents to the hospital with chest pain and thigh pain. The patient's chest pain began this morning associated with some shortness of breath. He says the pain is very similar to the previous episode he had and was diagnosed with pericarditis. He states the pain is worse with a deep breath and seems to be improved when he leans forward. He also reports some worsening with exertion as well. Pain is still present and has been there since this morning. The patient is also reporting some pain in his right thigh. Reportedly underwent a vascular fistulogram at [place] on 01/29/17. He says that the procedure "didn't go as planned" and he developed a hematoma afterwards. He was treated with pain medications. He followed up again with the vascular surgeon on 02/05/17, still having significant pain. They stated that they did not feel there was any surgical intervention necessary and that he says that they told him with the patient's heparin that he receives in dialysis, the hematoma should resolve on its own. He states that it has not been getting any better and he is having difficulty ambulating and has needed to limp around. He also ran out of pain medications that they prescribed for him. In the emergency department, the patient was found to have hyperkalemia and an elevated , although not terribly high for this patient, creatinine Dr. Orantes was consulted and recommended dialysis this evening and observation of the patient overnight. PAST MEDICAL HISTORY: 1. End-stage renal disease, on dialysis. 2. Polycystic kidney disease. 3. Parathyroidectomy with resultant hypocalcemia. 4. Pericarditis. PAST SURGICAL HISTORY: 1. Fistula. 2. Renal transplant x2. 3. Parathyroid removal. 4. Appendectomy. HOME MEDICATIONS: 1. Calcitriol 0.75 mcg by mouth 2 times daily. 2. Calcium carbonate 1500 mg by mouth 3 times daily. 3. Percocet 1 tablet by mouth every 4 hours as needed for pain. 4. Calcium acetate 3335 mg by mouth 3 times daily with meals. 5. Epogen 10,000 units injected twice weekly. 6. Nephro-Leticia 1 tablet by mouth daily. 7. Tylenol 975 mg by mouth every 6 hours as needed for pain. ALLERGIES: The patient reports allergies to VANCOMYCIN, KEFLEX, PENICILLIN, CEFAZOLIN. FAMILY HISTORY: Mother at 58. Father at 42 of CAD. SOCIAL HISTORY: The patient is a former smoker, about quarter pack a day times 12 years. Rarely drinks alcohol. Denies any illicit drug use. REVIEW OF SYSTEMS: A 12-point review of systems negative except for that as noted in the HPI. PHYSICAL EXAMINATION GENERAL: The patient is a young man lying in bed in no apparent distress. VITAL SIGNS: On admission, temperature 97.8, heart rate of 84, respiratory rate of 20, O2 saturation 100% on room air, blood pressure 136/87. HEENT: Head: Normocephalic, atraumatic. Eyes: Pupils equal, round, reactive to light and accommodation. Anicteric sclerae. ENT: Moist mucous membranes. No cervical adenopathy. LUNGS: Clear to auscultation bilaterally. No wheezes, rales, or rhonchi. CARDIOVASCULAR: Regular rate and rhythm. No murmurs, gallops, or rubs. ABDOMEN: Soft, nontender, nondistended. Bowel sounds positive. EXTREMITIES: The patient with some mild lower extremity edema bilaterally. Scar with suture on the right thigh with a fairly wide, firm tender area. No significant bruising noted on the skin. No discharge. The patient has a left upper extremity fistula. NEUROLOGIC: The patient is alert and oriented x3. No focal neurologic deficits. LABS AND DIAGNOSTICS: White blood cell count of 4.6, hematocrit of 32, platelets of 122,000. INR 1.03. Sodium 132, potassium 5.7, chloride of 101, carbon dioxide 17, BUN of 107, creatinine 17.3, glucose 125, calcium 6.8. Troponin was 0.00. CRP of 26. Brain natriuretic peptide of 319. EKG personally reviewed shows normal sinus rhythm. Maybe some mild peaked T waves. Chest x-ray showed no acute disease. Right lower extremity Doppler shows no evidence of DVT. Additional fluid collection in the thigh read as a likely hematoma or seroma, 11 x 2 x 4.5 cm. ASSESSMENT AND PLAN: Chest pain likely due to pericarditis and right thigh pain from hematoma in a 31-year-old male with past medical history of end-stage renal disease, on dialysis; hypocalcemia after parathyroidectomy; and a history of pericarditis. 1. Chest pain: It seems the patient's symptoms are likely due to a recurrence of pericarditis. I do not appreciate any rub on exam and EKG is fairly unremarkable. I will get another echocardiogram to ensure there is no evidence of an effusion. As noted, the patient refuses NSAIDs due to his kidney disease. I will start him on oral prednisone 40 mg by mouth daily. Initial troponin was negative. We will check one more troponin, although with the presence of the chest pain all morning, I doubt this is due to acute coronary syndrome. 2. Thigh pain: Unfortunately for the patient, there is not much we can offer him here aside from some analgesics. He will need to follow up with his outpatient vascular surgeons to determine any more definitive treatment. 3. End-stage renal disease, on dialysis, and hyperkalemia: The patient will be dialyzed and Dr. Orantes is aware, has arranged for a session this evening. We will recheck the patient's BMP in the morning. I do not think that he needs any Kayexalate at this time. We will continue the patient's home calcium supplements and Nephro-Leticia. 4. Hypocalcemia: Continue calcium supplements. 5. DVT prophylaxis: SCDs. 6. Code status: The patient is full code. TIME SPENT: Total time spent on this admission, 40 minutes with over half the time spent [id number] with the patient in counseling and coordinating care. [id number]/[facility] #: [id number] ZORA
[2017-02-08] MEDS ORDERED: Calcium Carbonate CHEW TAB* 500 MG (TUMS) PO SCH (21:00)
[2017-02-08] MEDS ORDERED: Calcium Acetate CAP* 667 MG PO SCH (21:00)
[2017-02-08] MEDS: Calcitriol CAP* 0.25 MCG PO SCH (21:47)
[2017-02-08] MEDS: Sodium Bicarbonate (ANTACID)* 650 MG TAB PO SCH (21:49)
[2017-02-09] MEDS: oxyCODONE/Acetamin 5/325 MG* TAB PO PRN (01:35)
[2017-02-09 05:28] LABS: BUN/Creatinine Ratio 5.4 (8-20); Calcium 7.9 mg/dL (8.6-10.3); EGFR African American 7.5 (>60); EGFR Non-African American 5.8 (>60); Phosphorus 5.5 mg/dL (2.5-5.0); Potassium 4.9 mmol/L (3.5-5.0)
[2017-02-09] MEDS ORDERED: Calcium Acetate CAP* 667 MG PO SCH (07:30)
[2017-02-09 07:49] VITALS: BP 120/74
[2017-02-09] MEDS: Calcitriol CAP* 0.25 MCG PO SCH (08:48)
[2017-02-09] MEDS: Sodium Bicarbonate (ANTACID)* 650 MG TAB PO SCH (08:48)
[2017-02-09] MEDS: predniSONE TAB* 20 MG PO SCH (08:49)
[2017-02-09] MEDS ORDERED: Vitamin B Complex TAB PO SCH (09:00)
[2017-02-09] MEDS ORDERED: Folic Acid TAB* 1 MG PO SCH (09:00)
--- NOTE | 2017-02-09 09:09 | PN ---
Subjective Date of Service: 02/09/17 Interval History: Pt is feeling better today. He states the prednisone has helped his chest pain ( now resolved). He states his leg is still painful. He states the percocet helps his pain but he only had 5 tablets which he used. He had no issues with accessing his UE fistula last night for dialysis. Objective Active Medications: Calcitriol (Rocaltrol Cap*) 0.75 mcg PO BID [facility] Last Admin: 02/09/17 08:48 Dose: 0.75 mcg Calcium Acetate (Phoslo Cap*) 3,335 mg PO AC [facility] Last Admin: 02/09/17 08:50 Dose: 3,335 mg Calcium Carbonate (Tums*) 1,500 mg PO AC [facility] Folic Acid (Folvite Tab*) 0.5 mg PO DAILY [facility] Last Admin: 02/09/17 08:49 Dose: 0.5 mg Oxycodone/Acetaminophen (Percocet 5/325 Tab*) 2 tab PO Q4H PRN PRN Reason: PAIN Last Admin: 02/09/17 01:35 Dose: 2 tab Prednisone (Deltasone Tab*) 40 mg PO DAILY [facility] Last Admin: 02/09/17 08:49 Dose: 40 mg Sodium Bicarbonate (Sodium Bicarbonate (Antacid)*) 1,300 mg PO BID [facility] Last Admin: 02/09/17 08:48 Dose: 1,300 mg Vitamin B Complex/Vitamin E (Complex B-100*) 1 tab PO DAILY [facility] Last Admin: 02/09/17 08:48 Dose: 1 tab Vital Signs 02/08/17 02/08/17 02/08/17 16:30 17:25 17:28 Temperature 98.1 F Pulse Rate 78 77 Respiratory 17 16 16 Rate Blood Pressure 122/77 130/89 (mmHg) O2 Sat by Pulse 100 100 Oximetry 02/08/17 02/08/17 02/08/17 21:49 21:59 23:16 Temperature Pulse Rate 81 83 Respiratory 18 18 20 Rate Blood Pressure 137/80 145/83 (mmHg) O2 Sat by Pulse 100 99 Oximetry 02/09/17 02/09/17 02/09/17 01:35 03:35 04:25 Temperature 98.2 F Pulse Rate 69 Respiratory 16 16 20 Rate Blood Pressure 119/64 (mmHg) O2 Sat by Pulse 98 Oximetry 02/09/17 07:15 Temperature 97.8 F Pulse Rate 65 Respiratory 14 Rate Blood Pressure 120/74 (mmHg) O2 Sat by Pulse 97 Oximetry Oxygen Devices in Use Now: None Appearance: Young male who appears older than his stated age sitting on the edge of the bed, NAD Eyes: No Scleral Icterus Ears/Nose/Mouth/Throat: Mucous Membranes Moist Respiratory: Symmetrical Chest Expansion and Respiratory Effort, Clear to Auscultation Cardiovascular: NL Sounds; No Murmurs; No JVD, RRR Abdominal: NL Sounds; No Tenderness; No Distention Extremities: No Clubbing, Cyanosis Skin: No Rash or Ulcers, No Nodules or Sclerosis Neurological: Alert and Oriented x 3 Result Diagrams: 02/08/17 13:47 02/09/17 04:21 Assess/Plan/Problems-Billing Mr Peacock is a 31 yo M who has a h/o ESRD secondary to polycystic kidney disease and h/o pericarditits who presented to the ER with c/o chest pain and R thigh pain after undergoing fistulogram on 01/29/17. - Patient Problems (1) Pericarditis Current Visit: Yes Status: Acute Code(s): I31.9 - DISEASE OF PERICARDIUM, UNSPECIFIED SNOMED Code(s): 4914848 Comment: It is suspected the patient's chest pain is secondary to pericarditis given his history/symptoms. He was started on prednisone 40mg daily and will need to taper this as an outpatient. Echo is pending. He states his pain is much improved with the prednisone. (2) Right thigh pain Current Visit: Yes Status: Acute Code(s): M79.651 - PAIN IN RIGHT THIGH SNOMED Code(s): 84552596 Comment: Secondary to hematoma. He is in the early phase of this resolving. Will send Rx for percocet for the patient to use for severe pain. (3) ESRD (end stage renal disease) on dialysis Current Visit: Yes Status: Acute Code(s): N18.6 - END STAGE RENAL DISEASE; Z99.2 - DEPENDENCE ON RENAL DIALYSIS SNOMED Code(s): 215505513 Comment: Continue home hemodialysis 4day/week. Hyperkalemia noted yesterday has resolved after dialysis last evening. He has an appointment with Dr. Orantes today at 11am. He has been instructed to keep that appointment. (4) DVT prophylaxis Current Visit: Yes Status: Acute Code(s): GBI7137 - SNOMED Code(s): 025803594 Comment: ambulation (5) Full code status Current Visit: Yes Status: Acute Code(s): Z78.9 - OTHER SPECIFIED HEALTH STATUS SNOMED Code(s): 025806000 Status and Disposition: d/c home after echo
--- NOTE | 2017-02-09 10:06 | ECHO ---
Patient: MARICHUY HATFIELD [facility] Rec#: [id number] : 1985 Date: 02/09/2017 Age: 31y Height: 157.5 cm / 62.0 in Weight: 64.4 kg / 141.9 lbs Sex: M BSA: 1.7 Room#: 433 Admit Date#: 02/09/2017 Type: Inpatient Referring: JENNIFER BETANCOURT MD Reading: Chente Hendricks MD Mica Washer Gluer: Jen Mclean RN RDCS CC: David Orantes MD Transthoracic Echocardiogram Indication: Chest pain BP: 119/64 HR: 72 Rhythm: NSR Findings History: HTN, pericarditis 2011, polycystic kidney disease, ESRD, dialysis, failed kidney transplant x2, partial parathyroidectomy, hypocalcemia Technical Comments: The study quality is fair. Completed at 0900. Left Ventricle: The left ventricular chamber size is normal. Global left ventricular wall motion and contractility are within normal limits. Left ventricular systolic function is at the lower limits of normal. The estimated ejection fraction is 50-55%. Normal left ventricular diastolic filling is observed. Left Atrium: The left atrial chamber size is normal. Right Ventricle: The right ventricular cavity size is normal. The right ventricular global systolic function is low normal. Right Atrium: The right atrial cavity size is normal. There is evidence of an atrial septal aneurysm. Aortic Valve: The aortic valve is trileaflet. The aortic valve leaflets are mildly thickened. There is a trace of aortic regurgitation. There is no evidence of aortic stenosis. Mitral Valve: The mitral valve leaflets are mildly thickened. There is mild to moderate mitral regurgitation. There is no evidence of mitral stenosis. Tricuspid Valve: The tricuspid valve leaflets are normal. There is mild to moderate tricuspid regurgitation. The tricuspid regurgitant jet is wall impinging. There is evidence of mild to moderate pulmonary hypertension. There is no tricuspid stenosis. Pulmonic Valve: The pulmonic valve appears normal. There is a trace pulmonic regurgitation. There is no pulmonic stenosis. Pericardium: There is no significant pericardial effusion. Aorta: There is no dilatation of the ascending aorta. There is no dilatation of the aortic arch. The aortic root is normal in size. Pulmonary Artery: The main pulmonary artery appears normal. Venous: The inferior vena cava appears normal in size. There is less than 50% respiratory change in the inferior vena cava dimension. Summary: There are no significant changes when compared to the previous study done on 11/16/16 Conclusions Global left ventricular wall motion and contractility are within normal limits. Left ventricular systolic function is at the lower limits of normal. The estimated ejection fraction is 50-55%. The right ventricular global systolic function is low normal. There is a trace of aortic regurgitation. There is mild to moderate mitral regurgitation. There is mild to moderate tricuspid regurgitation. There is evidence of mild to moderate pulmonary hypertension. There is no significant pericardial effusion. There is no dilatation of the ascending aorta. There are no significant changes when compared to the previous study done on 11/16/16 Measurements Name Value Normal Range RVDdMajor (2D) 3.1 cm (2.2 - 4.4) RAd ISD 4CH 4.4 cm (3.4 - 4.9) RA (A4C)W 3.6 cm (2.9 - 4.6) IVSd (2D) 0.91 cm (0.6 - 1) LVPWd (2D) 0.88 cm (0.6 - 1) LVIDd (2D) 4.3 cm (3.6 - 5.4) LVIDs (2D) 3.2 cm - LV FS (2D) 26 % (25 - 45) Aortic Annulus 1.8 cm (1.4 - 2.6) Ao root diameter (2D) 2.5 cm (2.1 - 3.5) Ascending Ao 2.9 cm (2.1 - 3.4) Aortic arch 2.5 cm (1.8 - 3.4) LA dimension (AP) 2D 3.6 cm (2.3 - 3.8) LAd ISD 4CH 5.1 cm (2.9 - 5.3) LA ISD 4CH W 3.7 cm (2.5 - 4.5) Name Value Normal Range LA ESV SP 4CH (A/L) 39 ml - LA ESV SP 2CH (A/L) 49 ml - LA ESV BP (A/L) 44 ml - LA ESV BP (A/L) index 27 ml/m2 - LA ESV SP 4CH (MOD) 36 ml - LA ESV SP 2CH (MOD) 48 ml - Name Value Normal Range MV E-wave Vmax 1.3 m/sec - MV deceleration time 134 msec - MV A-wave Vmax 0.96 m/sec - MV E:A ratio 1.4 ratio - LV septal e' Vmax 0.1 m/sec - LV lateral e' Vmax 0.14 m/sec - LV E:e' septal ratio 13 ratio - LV E:e' lateral ratio 9.3 ratio - Name Value Normal Range AV Vmax 1.7 m/sec - AV VTI 37.5 cm - AV peak gradient 11 mmHg - AV mean gradient 6 mmHg - LVOT Vmax 1.5 m/sec - LVOT VTI 29.5 cm - LVOT peak gradient 9 mmHg - LVOT mean gradient 4 mmHg - BARTOLO Vmax 0.9 m/sec - Name Value Normal Range TR Vmax 2.9 m/sec - TR peak gradient 34 mmHg - RAP 8 mmHg - RVSP 42 mmHg - IVC diameter 2 cm - Name Value Normal Range PV Vmax 0.9 m/sec -
[2017-02-09] MEDS ORDERED: Calcium Carbonate CHEW TAB* 500 MG (TUMS) PO SCH (19:00)
--- NOTE | 2017-02-09 19:19 | ED ---
Kevin Storey SooYoung, scribed for Boogie Sims MD on 02/08/17 at 1324 . HPI Chest Pain - HPI Summary HPI Summary: A 31 y/o M presents to ED with mid-sternal CP onset this AM. Pt "felt off" from the moment he woke up. Prev episode of pericarditis once with and once without fluid. Associated sx: SOB, muscle weakness. Aggravating factors: exertion. Alleviating factors: rest. Pt is on home dialysis as needed, last done [address] Roque. Recent dx: hematoma in RLE. - History of Current Complaint Chief Complaint: EDChestPainROMI Time Seen by Provider: 02/08/17 12:56 Hx Obtained From: Patient, Family/Work From Home Onset/Duration: Started Hours Ago, Still Present Timing: Constant, Lasting Hours Initial Severity: Moderate Current Severity: Moderate Pain Intensity: 5 Pain Scale Used: 0-10 Numeric Chest Pain Location: Mid Sternal Aggravating Factor(s): Exertion Alleviating Factor(s): Rest Associated Signs and Symptoms: Positive: Shortness of Breath, Other: - pos: muscle weakness - Additional Pertinent History Primary Care Physician: [id number] - Allergy/Home Medications Allergies/Adverse Reactions: Allergies Allergy/AdvReac Type Severity Reaction Status Date / Time Cephalexin [From Keflex] Allergy Unknown Unknown Verified 10/19/16 15:40 Reaction Details Penicillin V Allergy Unknown Unknown Verified 10/19/16 15:40 [From Penicillin VK Reaction Potassium] Details Vancomycin Allergy Unknown Unknown Verified 10/19/16 15:40 Reaction Details Cefazolin [From Ancef] Allergy Unknown Verified 10/19/16 15:40 Reaction Details Wasp Venom Protein Allergy Anaphylatic Verified 10/19/16 15:40 Shock contrast dyle Allergy Unknown Unknown Uncoded 10/19/16 15:40 Reaction Details PMH/Surg Hx/FS Hx/Imm Hx Previously Healthy: No Endocrine/Hematology History: Reports: Hx Anticoagulant Therapy - HEPARIN DURING DIALYSIS, Hx Thyroid Disease - PARTIAL PARATHYROIDECTOMY Denies: Hx Diabetes Cardiovascular History: Reports: Hx Angina, Hx Hypertension, Other Cardiovascular Problems/Disorders - Pericarditis Denies: Hx Coronary Artery Disease, Hx Hypercholesterolemia, Hx Myocardial Infarction, Hx Pacemaker/ICD, Hx Valvular Heart Disease Respiratory History: Denies: Hx Asthma, Hx Chronic Obstructive Pulmonary Disease (COPD) History: Reports: Hx Chronic Renal Failure - hemodialysis 4x/week at home, Hx Renal Disease - dialysis tues, th, sat Sensory History: Reports: Hx Contacts or Glasses Opthamlomology History: Reports: Hx Contacts or Glasses Neurological History: Denies: Hx Dementia, Hx Seizures Psychiatric History: Denies: Hx Substance Abuse - Surgical History Surgery Procedure, Year, and Place: PARTIAL PARATHYROIDECTOMY, L ARM GRAFT, R LEG GRAFT, HEMODYALISIS CATHETER PLACEMENT, KIDNEY TRANSPLANT X2 - Immunization History Date of Tetanus Vaccine: Date of Influenza Vaccine: Fall 2015 Infectious Disease History: No Infectious Disease History: Denies: Hx Hepatitis, Hx Human Immunodeficiency Virus (HIV), Traveled Outside the [place] in Last 30 Days - Family History Known Family History: Negative: Cardiac Disease - Social History Occupation: Disabled Lives: Alone Alcohol Use: Rare Hx Substance Use: No Substance Use Type: Reports: None Hx Tobacco Use: Yes Smoking Status (MU): Former Smoker Type: Cigarettes Amount Used/How Often: 1 pack lasted 4 days Length of Time of Smoking/Using Tobacco: 12 years Have You Smoked in the Last Year: No Review of Systems Negative: Fever Positive: Chest Pain Positive: Shortness Of Breath Positive: Weakness All Other Systems Reviewed And Are Negative: Yes Physical Exam Triage Information Reviewed: Yes Vital Signs On Initial Exam: Initial Vitals Temp Pulse Resp BP Pulse Ox 97.8 F 84 20 136/87 100 02/08/17 12:29 02/08/17 12:29 02/08/17 12:29 02/08/17 12:29 02/08/17 12:29 Vital Signs Reviewed: Yes Appearance: Positive: Well-Appearing, No Pain Distress Skin: Positive: Warm, Skin Color Reflects Adequate Perfusion, Dry Head/Face: Positive: Normal Head/Face Inspection Eyes: Positive: Normal ENT: Positive: Normal ENT inspection Neck: Positive: Supple, Nontender Respiratory/Lung Sounds: Positive: Breath Sounds Present, Other - POS: CRACKLES AT BASES Cardiovascular: Positive: RRR Abdomen Description: Positive: Nontender, Soft Musculoskeletal: Positive: Other - POS: INDURATED TENDER AREA IN ANTERIOR PROXIMAL R THIGH, SLIGHT BILAT EDEMA AT ANKLES Neurological: Positive: Normal Psychiatric: Positive: Normal, Affect/Mood Appropriate - Shari Coma Scale Coma Scale Total: 15 Diagnostics - Vital Signs Vital Signs Temp Pulse Resp BP Pulse Ox 02/08/17 12:31 98.7 F 80 20 136/87 100 02/08/17 12:29 97.8 F 84 20 136/87 100 - Laboratory Lab Results: Lab Results 02/08/17 02/08/17 02/08/17 Range/Units 13:47 13:47 13:47 WBC 4.6 (3.5-10.8) 10^3/ul RBC 3.37 L (4.0-5.4) 10^6/ul Hgb 10.5 L (14.0-18.0) g/dl Hct 32 L (42-52) % MCV 95 H (80-94) fL MCH 31 (27-31) pg MCHC 33 (31-36) g/dl RDW 16 H (10.5-15) % Plt Count 122 L (150-450) 10^3/ul MPV 9 (7.4-10.4) um3 Neut % (Auto) 58.0 (38-83) % Lymph % (Auto) 17.0 L (25-47) % [place] % (Auto) 12.0 H (1-9) % Eos % (Auto) 12.7 H (0-6) % Baso % (Auto) 0.3 (0-2) % Absolute Neuts (auto) 2.7 (1.5-7.7) 10^3/ul Absolute Lymphs (auto) 0.8 L (1.0-4.8) 10^3/ul Absolute Monos (auto) 0.5 (0-0.8) 10^3/ul Absolute Eos (auto) 0.6 (0-0.6) 10^3/ul Absolute Basos (auto) 0 (0-0.2) 10^3/ul Absolute Nucleated RBC 0 10^3/ul Nucleated RBC % 0 INR (Anticoag Therapy) 1.03 (0.89-1.11) Sodium 132 L (133-145) mmol/L Potassium 5.7 H (3.5-5.0) mmol/L Chloride 101 (101-111) mmol/L Carbon Dioxide 17 L (22-32) mmol/L Anion Gap 14 H (2-11) mmol/L BUN 107 H (6-24) mg/dL Creatinine 17.30 H (0.67-1.17) mg/dL Est GFR ( Amer) 4.2 (>60) Est GFR (Non-Af Amer) 3.2 (>60) BUN/Creatinine Ratio 6.2 L (8-20) Glucose 125 H (70-100) mg/dL Lactic Acid (0.5-2.0) mmol/L Calcium 6.8 L (8.6-10.3) mg/dL Total Bilirubin 0.60 (0.2-1.0) mg/dL AST 18 (13-39) U/L ALT 12 (7-52) U/L Alkaline Phosphatase 57 (34-104) U/L Troponin I 0.00 (<0.04) ng/mL C-Reactive Protein 26.93 H (< 5.00) mg/L B-Natriuretic Peptide ( - 100) pg/mL Total Protein 7.1 (6.4-8.9) g/dL Albumin 4.3 (3.2-5.2) g/dL Globulin 2.8 (2-4) g/dL Albumin/Globulin Ratio 1.5 (1-3) 02/08/17 02/08/17 Range/Units 13:47 13:47 WBC (3.5-10.8) 10^3/ul RBC (4.0-5.4) 10^6/ul Hgb (14.0-18.0) g/dl Hct (42-52) % MCV (80-94) fL MCH (27-31) pg MCHC (31-36) g/dl RDW (10.5-15) % Plt Count (150-450) 10^3/ul MPV (7.4-10.4) um3 Neut % (Auto) (38-83) % Lymph % (Auto) (25-47) % [place] % (Auto) (1-9) % Eos % (Auto) (0-6) % Baso % (Auto) (0-2) % Absolute Neuts (auto) (1.5-7.7) 10^3/ul Absolute Lymphs (auto) (1.0-4.8) 10^3/ul Absolute Monos (auto) (0-0.8) 10^3/ul Absolute Eos (auto) (0-0.6) 10^3/ul Absolute Basos (auto) (0-0.2) 10^3/ul Absolute Nucleated RBC 10^3/ul Nucleated RBC % INR (Anticoag Therapy) (0.89-1.11) Sodium (133-145) mmol/L Potassium (3.5-5.0) mmol/L Chloride (101-111) mmol/L Carbon Dioxide (22-32) mmol/L Anion Gap (2-11) mmol/L BUN (6-24) mg/dL Creatinine (0.67-1.17) mg/dL Est GFR ( Amer) (>60) Est GFR (Non-Af Amer) (>60) BUN/Creatinine Ratio (8-20) Glucose (70-100) mg/dL Lactic Acid 0.9 (0.5-2.0) mmol/L Calcium (8.6-10.3) mg/dL Total Bilirubin (0.2-1.0) mg/dL AST (13-39) U/L ALT (7-52) U/L Alkaline Phosphatase (34-104) U/L Troponin I (<0.04) ng/mL C-Reactive Protein (< 5.00) mg/L B-Natriuretic Peptide 319 H ( - 100) pg/mL Total Protein (6.4-8.9) g/dL Albumin (3.2-5.2) g/dL Globulin (2-4) g/dL Albumin/Globulin Ratio (1-3) Result Diagrams: 02/08/17 13:47 02/09/17 04:21 Lab Statement: Any lab studies that have been ordered have been reviewed, and results considered in the medical decision making process. - Radiology CXR Xray Interpretation: No Acute Changes - IMPRESSION: 1. NO EVIDENCE FOR ACUTE FINDING. 2. RIGHT PARATRACHEAL NODULAR DENSITY WHICH IS UNCHANGED AND APPEARS TO CORRELATE WITH A PROMINENT AZYGOS VEIN. Radiology Interpretation Completed By: Radiologist - Ultrasound No standard instances Ultrasound Interpretation: No Acute Changes - IMPRESSION: 1. SLIGHTLY LIMITED EXAM, NO EVIDENCE FOR DEEP VENOUS THROMBOSIS. 2. COMPLEX FLUID COLLECTION IN THE PROXIMAL THIGH SUSPICIOUS FOR A HEMATOMA OR SEROMA. Ultrasound Interpretation Completed By: Radiologist - EKG 1 Cardiac Rate: NL EKG Rhythm: Sinus Rhythm Chest Pain Course/Dx - Course Course Of Treatment: Mr. Peacock was out of town this weekend and came in C/O extreme fatigue and concerned about his K+. His last dialysis was Wednesday and he was found to need immediate hemodialysis and was admitted to the hospitalist service. - Diagnoses Provider Diagnoses: Hyperkalemia, Chronic renal failure - Provider Notifications Discussed Care Of Patient With: Grabiel Trinidad - hospitalist Instructed by Provider To: Admit As Inpatient Discharge - Discharge Plan Condition: Fair Disposition: ADMITTED TO [facility] The documentation as recorded by the Kevin banks SooYoung accurately reflects the service I personally performed and the decisions made by me, Boogie Sims MD.
--- NOTE | 2017-02-10 02:12 | DS ---
CC: Dr. Orantes * DISCHARGE SUMMARY: DATE OF ADMISSION: 02/08/17 DATE OF DISCHARGE: 02/09/17 PRIMARY CARE PROVIDER: David Orantes MD PRINCIPAL DIAGNOSES: 1. Probable pericarditis. 2. Right thigh hematoma. SECONDARY DIAGNOSIS: End-stage renal disease secondary to polycystic kidney disease. DISCHARGE MEDICATIONS: 1. Sodium bicarbonate 1300 mg p.o. b.i.d. 2. Calcitriol 0.75 mcg p.o. b.i.d. 3. Calcium carbonate 1500 mg p.o. t.i.d. 4. Calcium acetate 3335 mg p.o. t.i.d. 5. Epogen 10,000 units injected twice weekly at dialysis. 6. Nephro-Leticia 1 tab p.o. daily. 7. Tylenol 975 mg p.o. q.6 hours p.r.n. pain. 8. Prednisone 40 mg p.o. daily x2 weeks, 30 mg daily x1 week, then 20 mg x1 week, then 10 mg x1 week. 9. Percocet 5/325 mg 1 to 2 tabs p.o. q.4 hours p.r.n. pain. 10. Folic acid 0.5 mg p.o. daily. HOSPITAL COURSE: Mr. Peacock is a 31-year-old male with a history of end-stage renal disease, who performs home hemodialysis, presents to the emergency room with complaints of chest pain and right thigh pain. The patient recently had a fistulogram performed on his right thigh AV fistula. He unfortunately had a complication of developing a hematoma. This has been very painful for the patient. In addition, the patient complained of shortness of breath and chest pain and presented to the emergency room for this. It was felt that his chest pain likely by history represented pericarditis. The patient did undergo a transthoracic echocardiogram, which did not reveal any significant pericardial effusion. The patient was started on prednisone 40 mg daily and with this, his pain has resolved. As this is not the first episode of pericarditis for this patient, he will continue on a prolonged prednisone taper. NSAIDs are contraindicated in the patient due to his renal disease. In terms of the right thigh hematoma, it was explained to the patient that time alone is the only thing that will help take care of this. Pain control, however , could be offered. The patient only had 5 tablets of Percocet after his procedure, which obviously did not last. He was discharged to home with prescription for Percocet as needed. At this point, it was felt that the patient is stable for discharge home. His electrolyte abnormalities on admission including his hyperkalemia have resolved after having dialysis on the night of 02/08/17. FOLLOWUP CONCERNS: The patient is being discharged home today on 02/09/17. He is to follow up with Dr. Orantes today at 11 a.m. ACTIVITY LEVEL: As tolerated. DIET: Renal. CONDITION ON DISCHARGE: Stable. TIME SEEN: Thirty-five minutes was spent discharging this patient. [id number]/CPS #: [id number] MTDD
== END 2017-02-09 10:25 | disposition home or self-care (01) ==
LOC: ED 12:20 → MEDTELE 16:12
PROVIDERS: ADMIT Hospitalist; ATTEND Hospitalist
DX: R07.9 Chest pain, unspecified (principal); I97.638 Postprocedural hematoma of a circulatory system organ or structure following other circulatory system procedure; Y84.1 Kidney dialysis as the cause of abnormal reaction of the patient, or of later complication, without mention of misadventure at the time of the procedure; Y92.239 Unspecified place in hospital as the place of occurrence of the external cause; N18.6 End stage renal disease; I31.9 Disease of pericardium, unspecified; Z99.2 Dependence on renal dialysis; Z94.0 Kidney transplant status; R06.02 Shortness of breath; I34.0 Nonrheumatic mitral (valve) insufficiency; I07.1 Rheumatic tricuspid insufficiency; I27.2 Other secondary pulmonary hypertension; E87.5 Hyperkalemia; E83.51 Hypocalcemia; Z87.891 Personal history of nicotine dependence; Q61.3 Polycystic kidney, unspecified; Z79.01 Long term (current) use of anticoagulants; Z88.0 Allergy status to penicillin; Z88.1 Allergy status to other antibiotic agents
CPT/HCPCS: 36415; 71010; 80048; 80053; 83605; 83880; 84100; 84484; 85025; 85610; 86140; 93005; 93306; 96374; 96375; 99284; A9270-GY; G0378; J1170; J2405; J7512

== ENCOUNTER 2017-03-30 16:40 | Observation (INO) | payer MEDICARE, MEDICAID ==
[2017-03-30 19:36] LABS: Hematocrit 38 % (42-52); Hemoglobin 12.5 g/dl (14.0-18.0); Mean Corpuscular HGB Conc 33 g/dl (31-36); Mean Corpuscular Hemoglobin 32 pg (27-31); Mean Corpuscular Volume 98 fL (80-94); Mean Platelet Volume 8 um3 (7.4-10.4); Red Cell Distribution Width 19 % (10.5-15)
[2017-03-30 20:03] LABS: Albumin 4.5 g/dL (3.2-5.2); BUN/Creatinine Ratio 4.6 (8-20); Calcium 7.9 mg/dL (8.6-10.3); EGFR African American 10.1 (>60); EGFR Non-African American 7.9 (>60); Magnesium 2.2 mg/dL (1.9-2.7); Potassium 4.1 mmol/L (3.5-5.0); Total Bilirubin 0.6 mg/dL (0.2-1.0); Total Protein 7.5 g/dL (6.4-8.9)
[2017-03-30 20:30] LABS: TSH (Thyroid Stimulating Horm) 0.88 mcIU/mL (0.34-5.60)
[2017-03-30] MEDS ORDERED: Acetaminophen TAB* 325 MG PO PRN (20:47)
[2017-03-30] MEDS ORDERED: Albuterol 2.5 MG/3 ML NEB.SOL* (0.083%) INH PRN (20:47)
[2017-03-30] MEDS ORDERED: Ondansetron INJ* 2 MG/ML VIAL IV PRN (20:47)
[2017-03-30] MEDS ORDERED: CMCS: Melatonin (NF) 3 MG TAB PO PRN (20:47)
--- NOTE | 2017-03-30 21:22 | HP ---
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 In fact his ionized calcium is 3.78 and so he will be admitted to CDU for slow IV infusion and recheck for maintenance. He denies HX of seizures and current muscle cramps. PMedHx ESRD-home HD 4x/week but not on a fixed schedule sporadic PCKD hyperparathyroidism s/p parathyroidectomy w/ hypoCalcemia pericarditis Ambulatory Orders Nursing to reconcile. Calcium Acetate CAP* [Phoslo CAP*] 3,335 mg PO TID 09/20/12 Epoetin Giovany* [Epogen*] 10,000 units INJ .TWICE WEEKLY 09/20/12 B-Complex W/ C & Folic Acid [Nephro-Leticia 0.8 mg] 1 tab PO DAILY 11/30/13 Calcium Carbonate CHEW TAB* [Tums*] 1,500 mg PO TID #0 10/19/16 Calcitriol CAP* [Rocaltrol CAP*] 0.75 mcg PO BID 01/21/17 Sodium Bicarbonate (Antacid) [Sodium Bicarbonate] 1,300 mg PO BID 02/08/17 Acetaminophen TAB* [Tylenol TAB*] 975 mg PO Q6HR PRN #0 02/09/17 Folic Acid TAB* [Folvite TAB*] 0.5 mg PO DAILY tab 02/09/17 oxyCODONE/Acetamin 5/325 MG* [Percocet 5/325 TAB*] 1 - 2 tab PO Q4H PRN #60 tab MDD 12 tabs 02/09/17 predniSONE TAB* [Deltasone TAB*] 40 mg PO DAILY 03/30/17 Allergies Cephalexin [From Keflex] Allergy (Unknown, Verified 10/19/16 15:40) Unknown Reaction Details Penicillin V [From Penicillin VK Potassium] Allergy (Unknown, Verified 10/19/16 15:40) Unknown Reaction Details Vancomycin Allergy (Unknown, Verified 10/19/16 15:40) Unknown Reaction Details Cefazolin [From Ancef] Allergy (Verified 10/19/16 15:40) Unknown Reaction Details Wasp Venom Protein Allergy (Verified 10/19/16 15:40) Anaphylatic Shock contrast dyle Allergy (Unknown, Uncoded 10/19/16 15:40) Unknown Reaction Details PSurgHx parathyroidectomy HD fistula renal transplant x2 appendectomy SocHx: former light smoker, no alcohol or recreational drugs; lives with his girlfriend; 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 ROS: as above, otherwise reviewed and all were negative Constitutional: NAD, normally developed, overweight male vitals: Vital Signs Temp 36.4 C 03/30/17 18:35 Pulse 90 03/30/17 20:43 Resp 16 03/30/17 18:35 BP 111/59 03/30/17 18:35 Pulse Ox 99 03/30/17 20:43 Intake & Output 03/29/17 03/30/17 03/30/17 23:59 11:59 23:59 Weight 65.5 kg HEENM: atraumatic; sclera/conjunctiva: non-icteric/clear; hearing: clinically intact; oropharynx: clear, mucosa moist Neck: soft tissue: normal; thyroid: non-tender Pulmonary: clear to auscultation bilaterally, good aeration, no accessory muscle use CV: RR/RR, normal S1S2, no carotid bruit, no jugular venous distention, 2+ B DP/ PT, no edema Abdominal: soft, non-distended, non-tender, no rebound/guarding/rigidity, normoactive bowel sounds, no hepatosplenomegaly or masses, no costovertebral angle tenderness Musculoskeletal: general: grossly intact; gait: stable Integumental: normal appearance and texture Psychiatric orientation: AA&O to PPTS affect: calm mood: cooperative eye contact: good content: reliable responses: timely insight: good Testing: Lab Results 03/30/17 03/30/17 03/30/17 Range/Units 19:25 19:25 19:25 WBC 5.0 (3.5-10.8) 10^3/ul RBC 3.90 L (4.0-5.4) 10^6/ul Hgb 12.5 L (14.0-18.0) g/dl Hct 38 L (42-52) % MCV 98 H (80-94) fL MCH 32 H (27-31) pg MCHC 33 (31-36) g/dl RDW 19 H (10.5-15) % Plt Count 122 L (150-450) 10^3/ul MPV 8 (7.4-10.4) um3 Neut % (Auto) 57.4 (38-83) % Lymph % (Auto) 18.6 L (25-47) % [place] % (Auto) 12.3 H (1-9) % Eos % (Auto) 10.8 H (0-6) % Baso % (Auto) 0.9 (0-2) % Absolute Neuts (auto) 2.9 (1.5-7.7) 10^3/ul Absolute Lymphs (auto) 0.9 L (1.0-4.8) 10^3/ul Absolute Monos (auto) 0.6 (0-0.8) 10^3/ul Absolute Eos (auto) 0.5 (0-0.6) 10^3/ul Absolute Basos (auto) 0 (0-0.2) 10^3/ul Absolute Nucleated RBC 0 10^3/ul Nucleated RBC % 0.1 Sodium 139 (133-145) mmol/L Potassium 4.1 (3.5-5.0) mmol/L Chloride 101 (101-111) mmol/L Carbon Dioxide 29 (22-32) mmol/L Anion Gap 9 (2-11) mmol/L BUN 37 H (6-24) mg/dL Creatinine 8.02 H (0.67-1.17) mg/dL Est GFR ( Amer) 10.1 (>60) Est GFR (Non-Af Amer) 7.9 (>60) BUN/Creatinine Ratio 4.6 L (8-20) Glucose 89 (70-100) mg/dL Lactic Acid 1.4 (0.5-2.0) mmol/L Calcium 7.9 L (8.6-10.3) mg/dL Ionized Calcium (4.65-5.28) mg/dL Magnesium 2.2 (1.9-2.7) mg/dL Total Bilirubin 0.60 (0.2-1.0) mg/dL AST 14 (13-39) U/L ALT 12 (7-52) U/L Alkaline Phosphatase 77 (34-104) U/L Troponin I 0.00 (<0.04) ng/mL Total Protein 7.5 (6.4-8.9) g/dL Albumin 4.5 (3.2-5.2) g/dL Globulin 3.0 (2-4) g/dL Albumin/Globulin Ratio 1.5 (1-3) TSH 0.88 (0.34-5.60) mcIU/mL 03/30/17 Range/Units 19:49 WBC (3.5-10.8) 10^3/ul RBC (4.0-5.4) 10^6/ul Hgb (14.0-18.0) g/dl Hct (42-52) % MCV (80-94) fL MCH (27-31) pg MCHC (31-36) g/dl RDW (10.5-15) % Plt Count (150-450) 10^3/ul MPV (7.4-10.4) um3 Neut % (Auto) (38-83) % Lymph % (Auto) (25-47) % [place] % (Auto) (1-9) % Eos % (Auto) (0-6) % Baso % (Auto) (0-2) % Absolute Neuts (auto) (1.5-7.7) 10^3/ul Absolute Lymphs (auto) (1.0-4.8) 10^3/ul Absolute Monos (auto) (0-0.8) 10^3/ul Absolute Eos (auto) (0-0.6) 10^3/ul Absolute Basos (auto) (0-0.2) 10^3/ul Absolute Nucleated RBC 10^3/ul Nucleated RBC % Sodium (133-145) mmol/L Potassium (3.5-5.0) mmol/L Chloride (101-111) mmol/L Carbon Dioxide (22-32) mmol/L Anion Gap (2-11) mmol/L BUN (6-24) mg/dL Creatinine (0.67-1.17) mg/dL Est GFR ( Amer) (>60) Est GFR (Non-Af Amer) (>60) BUN/Creatinine Ratio (8-20) Glucose (70-100) mg/dL Lactic Acid (0.5-2.0) mmol/L Calcium (8.6-10.3) mg/dL Ionized Calcium 3.78 L (4.65-5.28) mg/dL Magnesium (1.9-2.7) mg/dL Total Bilirubin (0.2-1.0) mg/dL AST (13-39) U/L ALT (7-52) U/L Alkaline Phosphatase (34-104) U/L Troponin I (<0.04) ng/mL Total Protein (6.4-8.9) g/dL Albumin (3.2-5.2) g/dL Globulin (2-4) g/dL Albumin/Globulin Ratio (1-3) TSH (0.34-5.60) mcIU/mL ECG, personally reviewed: NSR rate 91, QTc 459 Impression: 31M HX PCKD on home HD 4x/week presents with symptomatic hypoCalcemia DIAGNOSIS & PLAN Primary symptomatic hypoCalcemia : 2gm IV calcium gluconate over 20minutes & recheck to assess response/ maintenance : telemetry : supportive care PCKD w/ 2nd ESRD-home HD : continue home HD as advised by nephrology Admission Rational: CDU observation for slow IV calcium infusion DVTp: KARI Code Status: full
[2017-03-30] MEDS: Docusate CAP* 100 MG PO SCH (22:56)
[2017-03-31] MEDS ORDERED: CALCIUM GLUCONATE IV ONE (03:00)
[2017-03-31] MEDS ORDERED: NS 0.9% IV ONE (03:00)
[2017-03-31] MEDS ORDERED: Omeprazole CAP* 20 MG PO SCH (06:00)
[2017-03-31 08:51] VITALS: BP 134/83
[2017-03-31] MEDS: Docusate CAP* 100 MG PO SCH (08:53)
--- NOTE | 2017-03-31 08:54 | DCNOTE ---
Subjective Date of Service: 03/31/17 Interval History: Still some tingling of fingers He requests discharge, will do HD at home today. He is concerned about getting IV fluids which he will have to remove by dialysis. Objective Active Medications: Acetaminophen (Tylenol Tab*) 650 mg PO Q6H PRN PRN Reason: FEVER/PAIN Albuterol (Ventolin 2.5 Mg/3 Ml Neb.Lyssa*) 2.5 mg INH Q2H PRN PRN Reason: SOB/WHEEZING Docusate Sodium (Colace Cap*) 200 mg PO BID [facility] Last Admin: 03/30/17 22:56 Dose: Not Given Calcium Gluconate 11 gm/ (Sodium Chloride) 1,110 mls @ 50 mls/hr IV ONCE ONE Stop: 04/01/17 01:11 Last Admin: 03/31/17 04:03 Dose: 50 mls/hr Melatonin (Melatonin (Nf)) 3 mg PO BEDTIME PRN; Protocol PRN Reason: Sleep Omeprazole (Prilosec Cap*) 20 mg PO DAILY@0600 [facility] Last Admin: 03/31/17 06:34 Dose: Not Given Ondansetron HCl (Zofran Inj*) 4 mg IV Q6H PRN PRN Reason: NAUSEA Vital Signs 03/30/17 03/30/17 03/30/17 20:43 21:14 21:55 Temperature 97.8 F Pulse Rate 90 75 Respiratory 16 23 Rate Blood Pressure 133/86 (mmHg) O2 Sat by Pulse 99 100 Oximetry 03/30/17 03/30/17 03/30/17 22:00 23:00 23:30 Temperature 97.7 F Pulse Rate 87 Respiratory 12 12 16 Rate Blood Pressure 109/65 (mmHg) O2 Sat by Pulse 100 Oximetry 03/31/17 03/31/17 03/31/17 00:00 00:27 01:00 Temperature Pulse Rate Respiratory 10 73 0 Rate Blood Pressure (mmHg) O2 Sat by Pulse Oximetry 03/31/17 03/31/17 03/31/17 02:00 03:00 03:39 Temperature 98.4 F Pulse Rate 95 Respiratory 17 0 16 Rate Blood Pressure 122/77 (mmHg) O2 Sat by Pulse 100 Oximetry 03/31/17 03/31/17 03/31/17 04:00 05:00 06:00 Temperature Pulse Rate Respiratory 0 0 0 Rate Blood Pressure (mmHg) O2 Sat by Pulse Oximetry Oxygen Devices in Use Now: None Appearance: Alert, supine in bed. In fair spirits. Looks comfortable. Eyes: No Scleral Icterus Extremities: No Edema, No Clubbing, Cyanosis, - Skin: No Rash or Ulcers, No Nodules or Sclerosis, - Neurological: Alert and Oriented x 3, NL Sensation Result Diagrams: 03/30/17 19:25 03/30/17 19:25 Microbiology and Other Data: Microbiology 03/30/17 22:15 Nasal Screen MRSA (PCR)(MONSE) - Final Nasal Mrsa Negative Assess/Plan/Problems-Billing Assessment: - Patient Problems (1) ESRD (end stage renal disease) on dialysis Current Visit: No Status: Acute Code(s): N18.6 - END STAGE RENAL DISEASE; Z99.2 - DEPENDENCE ON RENAL DIALYSIS SNOMED Code(s): 779670353 Comment: Continue home hemodialysis 4 day/week. (2) Hypocalcemia Current Visit: No Status: Acute Code(s): E83.51 - HYPOCALCEMIA SNOMED Code (s): 3104945 Comment: I discussed outpt meds with Dr. Orantes. Stop NaHCO3, increase calcium carbonate to QID. Fup Dr. Arias
--- NOTE | 2017-04-01 03:52 | DS ---
CC: Dr. Orantes * DISCHARGE SUMMARY: DATE OF ADMISSION: 03/30/17 DATE OF DISCHARGE: 03/31/17 HISTORY OF PRESENT ILLNESS: This 31-year-old man presented with numbness and tingling of his fingers. He has known hypocalcemia following parathyroidectomy. He is also on home dialysis for endstage renal disease from polycystic kidney disease. The patient had not run out of his medications and appears to understand his medications very well and be compliant with them. I do not think there was any change that would cause his calcium levels to fall. They were not that much worse than they have usually been. The patient was given intravenous calcium gluconate in the hospital. His ionized calcium estefania from 3.78 to 4.11. He got further intervenous calcium after that. He still had some tingling, but he was anxious to go home at that point. He will do dialysis on the day of discharge, at home. I discussed his medications with Dr. Orantes in light of his symptomatic hypocalcemia. He is going to stop the sodium bicarbonate, which may interfere with his calcium absorption. He will increase his calcium carbonate from 1500 mg t.i.d. to 1500 mg q.i.d. His calcitriol and all other medications will stay the same. FINAL DIAGNOSES: 1. Hypocalcemia, status post parathyroidectomy. 2. Endstage renal disease. 3. Polycystic kidney disease. 4. History of pericarditis. DISCHARGE MEDICATIONS: 1. Epoetin efraín 10,000 units twice weekly. 2. PhosLo, calcium acetate, 3335 mg t.i.d. 3. B complex with folic acid 1 tablet daily. 4. Calcitriol 0.75 mcg b.i.d. 5. Folic acid 0.5 mg daily. 6. Acetaminophen 975 mg every 6 hours p.r.n. 7. Oxycodone and acetaminophen 5/325 mg every 4 hours p.r.n. 8. Calcium carbonate 1500 mg q.i.d. 9. Prednisone 40 mg p.r.n. use of IV contrast dye. [id number]/[facility] #: [id number] [facility]
--- NOTE | 2017-04-02 14:51 | ED ---
I, Oh,Soohlaura, scribed for Boogie Sims MD on 03/30/17 at 1923 . Dizziness - HPI Summary HPI Summary: This 31 y/o male presents to ED for intermittent dizziness since today 1000 AM. Positive numbness/tingling at bilat fingers and lips. He contributes low blood calcium after dialysis. Pt is a dialysis patient. Pt called dialysis nurse, and was instructed to take TUMS and to go to ED if symptoms persist. Per triage note pt took about 28 tablets of TUMS before coming to ED. PMHx includes polycystic kidney disease, CKD with hemodialysis, and HTN. - History Of Current Complaint Chief Complaint: EDDizziness Stated Complaint: NUMBNESS/TINGLING LIPS AND FINGERS/DIZZY Time Seen by Provider: 03/30/17 19:14 Hx Obtained From: Patient, Medical Records Timing: Intermittent Episode Lasting Aggravating Factor(s): Nothing Alleviating Factor(s): Nothing Associated Signs And Symptoms: Positive: Other: - numbness/tingling at lips and bilat hands - Allergies/Home Medications Allergies/Adverse Reactions: Allergies Allergy/AdvReac Type Severity Reaction Status Date / Time Cephalexin [From Keflex] Allergy Unknown Unknown Verified 04/02/17 14:00 Reaction Details Penicillin V Allergy Unknown Unknown Verified 04/02/17 14:00 [From Penicillin VK Reaction Potassium] Details Vancomycin Allergy Unknown Unknown Verified 04/02/17 14:00 Reaction Details Cefazolin [From Ancef] Allergy Unknown Verified 04/02/17 14:00 Reaction Details Wasp Venom Protein Allergy Anaphylatic Verified 04/02/17 14:00 Shock contrast dyle Allergy Unknown Unknown Uncoded 04/02/17 14:00 Reaction Details PMH/Surg Hx/FS Hx/Imm Hx Endocrine/Hematology History: Reports: Hx Anticoagulant Therapy - HEPARIN DURING DIALYSIS, Hx Thyroid Disease - PARTIAL PARATHYROIDECTOMY Denies: Hx Diabetes Cardiovascular History: Reports: Hx Angina, Hx Hypertension, Other Cardiovascular Problems/Disorders - Pericarditis Denies: Hx Coronary Artery Disease, Hx Hypercholesterolemia, Hx Myocardial Infarction, Hx Pacemaker/ICD, Hx Valvular Heart Disease Respiratory History: Denies: Hx Asthma, Hx Chronic Obstructive Pulmonary Disease (COPD) History: Reports: Hx Chronic Renal Failure - hemodialysis 4x/week at home, Hx Renal Disease - dialysis tues, thurs, sat Sensory History: Reports: Hx Contacts or Glasses Denies: Hx Hearing Aid Opthamlomology History: Reports: Hx Contacts or Glasses Neurological History: Denies: Hx Dementia, Hx Seizures Psychiatric History: Denies: Hx Substance Abuse - Surgical History Surgery Procedure, Year, and Place: PARTIAL PARATHYROIDECTOMY, L ARM GRAFT, R LEG GRAFT, HEMODYALISIS CATHETER PLACEMENT, KIDNEY TRANSPLANT X2 - Immunization History Date of Tetanus Vaccine: Date of Influenza Vaccine: Fall 2015 Infectious Disease History: No Infectious Disease History: Denies: Hx Hepatitis, Hx Human Immunodeficiency Virus (HIV), Traveled Outside the [place] in Last 30 Days - Family History Known Family History: Negative: Cardiac Disease - Social History Alcohol Use: Rare Hx Substance Use: No Substance Use Type: Reports: None Hx Tobacco Use: Yes Smoking Status (MU): Former Smoker Type: Cigarettes Amount Used/How Often: 1 pack lasted 4 days Length of Time of Smoking/Using Tobacco: 12 years Have You Smoked in the Last Year: No Review of Systems Negative: Fever Neurological: Other - Positive for dizziness Positive: Numbness - numbenss/tingling at bilat fingers and lips All Other Systems Reviewed And Are Negative: Yes Physical Exam Triage Information Reviewed: Yes Vital Signs On Initial Exam: Initial Vitals Temp Pulse Resp BP Pulse Ox 98.2 F 94 20 134/91 95 03/30/17 16:43 03/30/17 16:43 03/30/17 16:43 03/30/17 16:43 03/30/17 16:43 Vital Signs Reviewed: Yes Appearance: Positive: Well-Appearing, No Pain Distress Skin: Positive: Warm, Skin Color Reflects Adequate Perfusion, Dry Head/Face: Positive: Normal Head/Face Inspection Eyes: Positive: Normal ENT: Positive: Normal ENT inspection Neck: Positive: Supple, Nontender Respiratory/Lung Sounds: Positive: Breath Sounds Present Cardiovascular: Positive: RRR, Pulses are Symmetrical in both Upper and Lower Extremities Musculoskeletal: Positive: Normal Neurological: Positive: Sensory/Motor Intact, Alert, Oriented to Person Place, Time, Reflexes Intact Psychiatric: Positive: Affect/Mood Appropriate AVPU Assessment: Alert Diagnostics - Vital Signs Vital Signs Temp Pulse Resp BP Pulse Ox 03/30/17 18:35 97.6 F 80 16 111/59 98 03/30/17 17:58 97.6 F 89 20 121/70 100 03/30/17 16:43 98.2 F 94 20 134/91 95 - Laboratory Lab Results: Lab Results 03/30/17 03/30/17 03/30/17 Range/Units 19:25 19:25 19:25 WBC 5.0 (3.5-10.8) 10^3/ul RBC 3.90 L (4.0-5.4) 10^6/ul Hgb 12.5 L (14.0-18.0) g/dl Hct 38 L (42-52) % MCV 98 H (80-94) fL MCH 32 H (27-31) pg MCHC 33 (31-36) g/dl RDW 19 H (10.5-15) % Plt Count 122 L (150-450) 10^3/ul MPV 8 (7.4-10.4) um3 Neut % (Auto) 57.4 (38-83) % Lymph % (Auto) 18.6 L (25-47) % Nolan % (Auto) 12.3 H (1-9) % Eos % (Auto) 10.8 H (0-6) % Baso % (Auto) 0.9 (0-2) % Absolute Neuts (auto) 2.9 (1.5-7.7) 10^3/ul Absolute Lymphs (auto) 0.9 L (1.0-4.8) 10^3/ul Absolute Monos (auto) 0.6 (0-0.8) 10^3/ul Absolute Eos (auto) 0.5 (0-0.6) 10^3/ul Absolute Basos (auto) 0 (0-0.2) 10^3/ul Absolute Nucleated RBC 0 10^3/ul Nucleated RBC % 0.1 Sodium 139 (133-145) mmol/L Potassium 4.1 (3.5-5.0) mmol/L Chloride 101 (101-111) mmol/L Carbon Dioxide 29 (22-32) mmol/L Anion Gap 9 (2-11) mmol/L BUN 37 H (6-24) mg/dL Creatinine 8.02 H (0.67-1.17) mg/dL Est GFR ( Amer) 10.1 (>60) Est GFR (Non-Af Amer) 7.9 (>60) BUN/Creatinine Ratio 4.6 L (8-20) Glucose 89 (70-100) mg/dL Lactic Acid 1.4 (0.5-2.0) mmol/L Calcium 7.9 L (8.6-10.3) mg/dL Ionized Calcium (4.65-5.28) mg/dL Magnesium 2.2 (1.9-2.7) mg/dL Total Bilirubin 0.60 (0.2-1.0) mg/dL AST 14 (13-39) U/L ALT 12 (7-52) U/L Alkaline Phosphatase 77 (34-104) U/L Troponin I 0.00 (<0.04) ng/mL Total Protein 7.5 (6.4-8.9) g/dL Albumin 4.5 (3.2-5.2) g/dL Globulin 3.0 (2-4) g/dL Albumin/Globulin Ratio 1.5 (1-3) TSH 0.88 (0.34-5.60) mcIU/mL 03/30/17 Range/Units 19:49 WBC (3.5-10.8) 10^3/ul RBC (4.0-5.4) 10^6/ul Hgb (14.0-18.0) g/dl Hct (42-52) % MCV (80-94) fL MCH (27-31) pg MCHC (31-36) g/dl RDW (10.5-15) % Plt Count (150-450) 10^3/ul MPV (7.4-10.4) um3 Neut % (Auto) (38-83) % Lymph % (Auto) (25-47) % Nolan % (Auto) (1-9) % Eos % (Auto) (0-6) % Baso % (Auto) (0-2) % Absolute Neuts (auto) (1.5-7.7) 10^3/ul Absolute Lymphs (auto) (1.0-4.8) 10^3/ul Absolute Monos (auto) (0-0.8) 10^3/ul Absolute Eos (auto) (0-0.6) 10^3/ul Absolute Basos (auto) (0-0.2) 10^3/ul Absolute Nucleated RBC 10^3/ul Nucleated RBC % Sodium (133-145) mmol/L Potassium (3.5-5.0) mmol/L Chloride (101-111) mmol/L Carbon Dioxide (22-32) mmol/L Anion Gap (2-11) mmol/L BUN (6-24) mg/dL Creatinine (0.67-1.17) mg/dL Est GFR ( Amer) (>60) Est GFR (Non-Af Amer) (>60) BUN/Creatinine Ratio (8-20) Glucose (70-100) mg/dL Lactic Acid (0.5-2.0) mmol/L Calcium (8.6-10.3) mg/dL Ionized Calcium 3.78 L (4.65-5.28) mg/dL Magnesium (1.9-2.7) mg/dL Total Bilirubin (0.2-1.0) mg/dL AST (13-39) U/L ALT (7-52) U/L Alkaline Phosphatase (34-104) U/L Troponin I (<0.04) ng/mL Total Protein (6.4-8.9) g/dL Albumin (3.2-5.2) g/dL Globulin (2-4) g/dL Albumin/Globulin Ratio (1-3) TSH (0.34-5.60) mcIU/mL Result Diagrams: 03/30/17 19:25 03/30/17 19:25 Lab Statement: Any lab studies that have been ordered have been reviewed, and results considered in the medical decision making process. - EKG 1947 Cardiac Rate: NL EKG Rhythm: Sinus Rhythm - 80 bpm Re-Evaluation - Re-Evaluation First Eval Re-Evaluation Time: 20:36 Comment: MD in room to discuss plan of care involving admission. Labwork is discussed. Dizzy Course/Dx - Course Course Of Treatment: Mr. Peacock presented with tingling in his fingers and toes which is a symptom that he associates with hypocalcemia. He was found to be hypocalcemic and he is being admitted by the hospitalists for calcium gluconate. - Diagnoses Provider Diagnoses: Hypocalcemia - Provider Notifications Discussed Care Of Patient With: Dwight Alvarez Time Discussed With Above Provider: 20:34 Discharge - Discharge Plan Condition: Improved Disposition: ADMITTED TO [facility] documentation as recorded by the Doron banks Soohyun accurately reflects the service I personally performed and the decisions made by , Boogie Sims MD.
== END 2017-03-31 09:50 | disposition home or self-care (01) ==
LOC: ED 16:40 → MEDTELE 20:41
PROVIDERS: ADMIT Hospitalist; ATTEND Internal Medicine
DX: E83.51 Hypocalcemia (principal); Q61.3 Polycystic kidney, unspecified; I12.0 Hypertensive chronic kidney disease with stage 5 chronic kidney disease or end stage renal disease; N18.6 End stage renal disease; Z99.2 Dependence on renal dialysis; Z88.1 Allergy status to other antibiotic agents; Z88.0 Allergy status to penicillin; Z87.891 Personal history of nicotine dependence
CPT/HCPCS: 36415; 80053; 82330; 83605; 83735; 84443; 84484; 85025; 87641; 93005; 96374; 99283; J0610

== ENCOUNTER 2017-04-02 13:47 | Observation (INO) | payer MEDICARE, MEDICAID ==
[2017-04-02 16:10] LABS: Albumin 4.5 g/dL (3.2-5.2); BUN/Creatinine Ratio 4.7 (8-20); Calcium 8.1 mg/dL (8.6-10.3); EGFR African American 8.5 (>60); EGFR Non-African American 6.6 (>60); Potassium 4.1 mmol/L (3.5-5.0); Total Bilirubin 0.7 mg/dL (0.2-1.0); Total Protein 7.5 g/dL (6.4-8.9)
[2017-04-02 17:09] LABS: Phosphorus 3.4 mg/dL (2.5-5.0)
[2017-04-02] MEDS ORDERED: Ondansetron INJ* 2 MG/ML VIAL IV PRN (17:31)
[2017-04-02] MEDS ORDERED: Acetaminophen TAB* 325 MG PO PRN (17:34)
[2017-04-02] MEDS ORDERED: Butalb/Acetamin/Caff TAB* 1 TAB PO ONE (17:34)
[2017-04-02] MEDS ORDERED: oxyCODONE/Acetamin 5/325 MG* TAB PO PRN (17:39)
[2017-04-02 17:42] LABS: Magnesium 2.1 mg/dL (1.9-2.7)
[2017-04-02 18:05] LABS: Hematocrit 39 % (42-52); Hemoglobin 12.5 g/dl (14.0-18.0); Mean Corpuscular HGB Conc 32 g/dl (31-36); Mean Corpuscular Hemoglobin 32 pg (27-31); Mean Corpuscular Volume 98 fL (80-94); Mean Platelet Volume 8 um3 (7.4-10.4); Red Blood Count 3.94 10^6/ul (4.0-5.4); Red Cell Distribution Width 18 % (10.5-15); White Blood Count 4.5 10^3/ul (3.5-10.8)
--- NOTE | 2017-04-02 18:36 | ED ---
Allie Storey Thomas, scribed for Boogie Sims MD on 04/02/17 at 1548 . Dizziness - HPI Summary HPI Summary: The pt is a 31 y/o M with a Hx of PCKD, ESRD, and hypocalcemia presenting to the ED c/o dizziness. Pt additionally c/o photophobia, sensitivity to loud noises, dizziness, muscle spasms, tingling (hands, feet), and a pulsating KING. His began this AM, and is located bilaterally to the front of his head. His normal HAs are one-sided. Pt denies nausea. PMHx: PCKD with ESRD, hemodialysis four times a week, HTN, pericarditis. PSHx: kidney transplant x2, L arm AV graft , R leg AV graft, hemodialysis catheter. SHx: former smoker, no alcohol, no illicit drugs. He was admitted to [facility] three days ago with similar symptoms. After he was discharged from the hospital, his symptoms went away mildly, but returned two days ago. - History Of Current Complaint Chief Complaint: EDGeneral Stated Complaint: FINGERS/TOES TINGLE-DIZZY Time Seen by Provider: 04/02/17 15:37 Hx Obtained From: Patient Onset/Duration: Still Present Timing: Constant Aggravating Factor(s): Nothing Alleviating Factor(s): Nothing Associated Signs And Symptoms: Positive: Visual Changes - photophobia, Other: - POS: sensitivity to loud noises, muscle spasms, KING (pulsating, located frontally on both sides. Negative: Nausea - Allergies/Home Medications Allergies/Adverse Reactions: Allergies Allergy/AdvReac Type Severity Reaction Status Date / Time Cephalexin [From Keflex] Allergy Unknown Unknown Verified 04/02/17 14:00 Reaction Details Penicillin V Allergy Unknown Unknown Verified 04/02/17 14:00 [From Penicillin VK Reaction Potassium] Details Vancomycin Allergy Unknown Unknown Verified 04/02/17 14:00 Reaction Details Cefazolin [From Ancef] Allergy Unknown Verified 04/02/17 14:00 Reaction Details Wasp Venom Protein Allergy Anaphylatic Verified 04/02/17 14:00 Shock contrast dyle Allergy Unknown Unknown Uncoded 04/02/17 14:00 Reaction Details Home Medications: Home Medications Calcium Carbonate CHEW TAB* [Tums*] 1,500 mg PO TID 04/02/17 [History Confirmed 04/02/17] Epoetin Giovany* [Epogen*] 10,000 units INJ .TWICE WEEKLY 04/02/17 [History Confirmed 04/02/17] PMH/Surg Hx/FS Hx/Imm Hx Previously Healthy: No Endocrine/Hematology History: Reports: Hx Anticoagulant Therapy - HEPARIN DURING DIALYSIS, Hx Thyroid Disease - PARTIAL PARATHYROIDECTOMY Denies: Hx Diabetes Cardiovascular History: Reports: Hx Angina, Hx Hypertension, Other Cardiovascular Problems/Disorders - Pericarditis Denies: Hx Coronary Artery Disease, Hx Hypercholesterolemia, Hx Myocardial Infarction, Hx Pacemaker/ICD, Hx Valvular Heart Disease Respiratory History: Denies: Hx Asthma, Hx Chronic Obstructive Pulmonary Disease (COPD) History: Reports: Hx Chronic Renal Failure - hemodialysis 4x/week at home, Hx Renal Disease - dialysis , , wed Sensory History: Reports: Hx Contacts or Glasses Denies: Hx Hearing Aid Opthamlomology History: Reports: Hx Contacts or Glasses Neurological History: Denies: Hx Dementia, Hx Seizures Psychiatric History: Denies: Hx Substance Abuse - Surgical History Surgery Procedure, Year, and Place: PARTIAL PARATHYROIDECTOMY, L ARM GRAFT, R LEG GRAFT, HEMODYALISIS CATHETER PLACEMENT, KIDNEY TRANSPLANT X2 - Immunization History Date of Tetanus Vaccine: Date of Influenza Vaccine: Fall 2015 Infectious Disease History: Denies: Hx Hepatitis, Hx Human Immunodeficiency Virus (HIV), Hx of Known/ Suspected MRSA, Traveled Outside the [place] in Last 30 Days - Family History Known Family History: Negative: Cardiac Disease - Social History Alcohol Use: None Hx Substance Use: No Substance Use Type: Reports: None Hx Tobacco Use: Yes Smoking Status (MU): Former Smoker Type: Cigarettes Amount Used/How Often: 1 pack lasted 4 days Length of Time of Smoking/Using Tobacco: 12 years Have You Smoked in the Last Year: No Review of Systems Negative: Fever Positive: Photophobia Positive: Other - POS: sensitivity to loud noises Negative: Nausea Positive: Other - POS: muscle spasms Neurological: Other - POS: dizziness (same as when hospitalized), tingling ( hands, feet) Positive: Headache - pulsating, frontal on both sides All Other Systems Reviewed And Are Negative: Yes Physical Exam Triage Information Reviewed: Yes Vital Signs On Initial Exam: Initial Vitals Temp Pulse Resp BP Pulse Ox 97.9 F 83 16 131/80 100 04/02/17 14:00 04/02/17 14:00 04/02/17 14:00 04/02/17 14:00 04/02/17 14:00 Vital Signs Reviewed: Yes Appearance: Positive: Well-Appearing, No Pain Distress Skin: Positive: Warm, Skin Color Reflects Adequate Perfusion Head/Face: Positive: Normal Head/Face Inspection Eyes: Positive: Normal ENT: Positive: Normal ENT inspection Neck: Positive: Supple, Nontender Respiratory/Lung Sounds: Positive: Clear to Auscultation, Breath Sounds Present Cardiovascular: Positive: RRR Abdomen Description: Positive: Nontender, Soft Bowel Sounds: Positive: Present Musculoskeletal: Positive: Normal Neurological: Positive: Normal Psychiatric: Positive: Normal, Affect/Mood Appropriate Diagnostics - Vital Signs Vital Signs Temp Pulse Resp BP Pulse Ox 04/02/17 14:00 97.9 F 83 16 131/80 100 - Laboratory Lab Results: Lab Results 04/02/17 04/02/17 04/02/17 Range/Units 15:40 15:55 15:55 WBC 4.5 (3.5-10.8) 10^3/ul RBC 3.94 L (4.0-5.4) 10^6/ul Hgb 12.5 L (14.0-18.0) g/dl Hct 39 L (42-52) % MCV 98 H (80-94) fL MCH 32 H (27-31) pg MCHC 32 (31-36) g/dl RDW 18 H (10.5-15) % Plt Count 124 L (150-450) 10^3/ul MPV 8 (7.4-10.4) um3 Neut % (Auto) 59.4 (38-83) % Lymph % (Auto) 20.1 L (25-47) % Knox % (Auto) 9.2 H (1-9) % Eos % (Auto) 10.3 H (0-6) % Baso % (Auto) 1.0 (0-2) % Absolute Neuts (auto) 2.6 (1.5-7.7) 10^3/ul Absolute Lymphs (auto) 0.9 L (1.0-4.8) 10^3/ul Absolute Monos (auto) 0.4 (0-0.8) 10^3/ul Absolute Eos (auto) 0.5 (0-0.6) 10^3/ul Absolute Basos (auto) 0 (0-0.2) 10^3/ul Absolute Nucleated RBC 0 10^3/ul Nucleated RBC % 0 Sodium 135 (133-145) mmol/L Potassium 4.1 (3.5-5.0) mmol/L Chloride 100 L (101-111) mmol/L Carbon Dioxide 25 (22-32) mmol/L Anion Gap 10 (2-11) mmol/L BUN 44 H (6-24) mg/dL Creatinine 9.31 H (0.67-1.17) mg/dL Est GFR ( Amer) 8.5 (>60) Est GFR (Non-Af Amer) 6.6 (>60) BUN/Creatinine Ratio 4.7 L (8-20) Glucose 66 L (70-100) mg/dL Calcium 8.1 L (8.6-10.3) mg/dL Ionized Calcium 3.93 L (4.65-5.28) mg/dL Phosphorus 3.4 (2.5-5.0) mg/dL Magnesium 2.1 (1.9-2.7) mg/dL Total Bilirubin 0.70 (0.2-1.0) mg/dL AST 14 (13-39) U/L ALT 11 (7-52) U/L Alkaline Phosphatase 72 (34-104) U/L Total Protein 7.5 (6.4-8.9) g/dL Albumin 4.5 (3.2-5.2) g/dL Globulin 3.0 (2-4) g/dL Albumin/Globulin Ratio 1.5 (1-3) Result Diagrams: 04/02/17 15:55 04/02/17 15:40 Lab Statement: Any lab studies that have been ordered have been reviewed, and results considered in the medical decision making process. Dizzy Course/Dx - Course Course Of Treatment: Mr. Peacock's symptoms returned and he is again hypocalcemic. The hospitalists are admitting him for calcium gluconate. - Diagnoses Provider Diagnoses: Hypocalcemia Discharge - Discharge Plan Condition: Fair Disposition: ADMITTED TO [facility] documentation as recorded by the Allie bnaks Thomas accurately reflects the service I personally performed and the decisions made by ct, Boogie Sims MD.
[2017-04-02] MEDS: oxyCODONE/Acetamin 5/325 MG* TAB PO PRN ×2 (19:31→19:38)
[2017-04-02] MEDS: Calcitriol CAP* 0.25 MCG PO SCH (19:39)
[2017-04-02] MEDS: Calcium Acetate CAP* 667 MG PO SCH (19:42)
[2017-04-02] MEDS: Calcium Carbonate CHEW TAB* 500 MG (TUMS) PO SCH (21:33)
--- NOTE | 2017-04-02 23:02 | HP ---
CC: Dr. Orantes * HISTORY AND PHYSICAL: DATE OF ADMISSION: 04/02/17 PROVIDER: Tiesha Waller NP ATTENDING PHYSICIAN: Barbie Souza MD * (as dictated by Tiesha Waller NP). PRIMARY CARE PROVIDER: Dr. David Orantes. CHIEF COMPLAINT: Tingling and numbness in heels and toes, headache. HISTORY OF PRESENT ILLNESS: Mr. Peacock is a 31-year-old male with a history of polycystic kidney disease, endstage renal disease on home hemodialysis four times a week, hyperparathyroidism, status post parathyroidectomy with secondary hypocalcemia and history of pericarditis, who presents to the ER today with complaints of muscle spasms tingling to the hands and feet as well as a "migraine headache." The patient was recently admitted from 03/30/17 and but left on 03/31/17 per his request as he was eager to go home. He states that when he went home he felt fine, but that on 04/01/17 he noted that the tingling and numbness in his hands and in his feet returned along with muscle spasms. Today, the patient started to have a pulsating headache along the frontal part of his head with accompanied photophobia and noise sensitivity. He denies any accompanying nausea. He denies any history of migraine headaches , but says that he does get headache on occasion. He does not take anything for his headache. The patient denies any seizures or seizure history. He denies any chest pain, trouble breathing, recent fever, chills, cold or flu symptoms, rhinorrhea, sore throat. He denies any abdominal pain, nausea, vomiting diarrhea and actually just ate a bagel prior to my arrival in the room. In the ER, the patient had labs drawn with a noted a normal bicarb. The patient has a calcium of 8.1 and an ionized calcium of 3.93. His phosphorous was 3.4. His magnesium was 2.1. The patient's potassium was normal at 4.1, has a BUN and creatinine of 44 and 9.21 respectively. However, given the patient's low calcium and symptoms, Hospitalist medicine was consulted for admission. PAST MEDICAL HISTORY: Includes: 1. Endstage renal disease. The patient is on home hemodialysis four times a week. The patient chooses the days, such as the last therapy session occurred on 04/01/17. 2. Positive for kidney disease. 3. Hyperparathyroidism, status post parathyroidectomy with secondary hypocalcemia. 4. Pericarditis. PAST SURGICAL HISTORY: 1. Fistula. 2. Renal transplant x2. 3. Parathyroid removal. 4. Appendectomy. HOME MEDICATIONS: 1. Calcium acetate 3325 mg t.i.d. 2. Epogen 10,000 units twice weekly, this medication is currently on hold per the patient. 3. Nephro-Leticia one tablet daily. 4. Calcium carbonate 1500 mg t.i.d. 5. Calcitriol 1 mcg b.i.d. (this is an increase in dosing from a previous 0.75 mcg b.i.d. on previous admission). 6. Acetaminophen 975 mg every 6 hours p.r.n. 7. Folic acid 0.5 mg daily. 8. Percocet 5/325 1 to 2 tablets every 4 hours p.r.n. 9. Prednisone 40 mg p.r.n. ALLERGIES: Include CEPHALEXIN, PENICILLIN B, VANCOMYCIN, CEFAZOLIN, WASPS and CONTRAST DYE. SOCIAL HISTORY: The patient is a former smoker. Has a history of smoking about a quarter pack a day for about 12 years. He reports rare to no alcohol use, but denies any illicit drug use. He lives with his girlfriend. 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 His emergency contact and surrogate decision maker is Varun Giordano. REVIEW OF SYSTEMS: As per HPI. All those not mentioned are negative. PHYSICAL EXAMINATION GENERAL: Mr. Peacock is a 31-year-old male, who is lying in ED stretcher in no acute distress. VITAL SIGNS: Temperature 98.9, heart rate 76, respiratory rate 20, blood pressure 117/71, and O2 saturation 98% on room air. HEENT: Head is atraumatic, normocephalic. Face is symmetrical. Pupils are equal, round, and reactive to light. Sclerae are anicteric. Extraocular movements are intact. Oral mucosa appears moist. There is no oropharyngeal erythema or exudate. NECK: Supple. No lymphadenopathy appreciated. No JVD noted. RESPIRATORY: Lungs are clear to auscultation bilaterally. No sensory muscle use noted. CARDIAC: S1, S2 heart sounds. Regular rate and rhythm. No murmurs heard. There is no peripheral edema. ABDOMEN: Abdomen is soft, nontender and nondistended. Bowel sounds present times all four quadrants. MUSCULOSKELETAL: The patient moves all extremities. No clubbing or cyanosis noted. SKIN: Limited assessment, but appears grossly intact. NEURO: The patient moves all extremities. No focal deficits noted. PSYCH: He is alert and oriented x3. Affect is appropriate. LABORATORY DATA AND DIAGNOSTIC STUDIES: CMP: Sodium 135, potassium 4.1, chloride 100, carbon dioxide 25, BUN 44, creatinine 9.31, glucose 66, calcium 8.1, ionized calcium 3.93, phosphorus 3.4 and magnesium 2.1. Total bilirubin 0.7, AST 14, ALT 11, alk phos 72, albumin 4.5. No EKG available for review. ASSESSMENT AND PLAN: Mr. Peacock is a 31-year-old male patient who presents today with symptomatic hypocalcemia. He will be admitted under observation to the telemetry floor. Plan is as follows. 1. Symptomatic hypocalcemia. Check EKG, done a magnesium and phosphorus level which are normal. We will replace the patient's calcium and recheck his values. After his initial infusion to continue regarding calcium repletion, I did speak with Dr. Orantes and with the patient's normal bicarb and potassium levels, he is agreeable with the plan to replete his calcium. The patient was previously on sodium bicarbonate which has been discontinued, but is only 2 two ago. Additionally, the patient was advised to increase his calcitriol to 1 microgram b.i.d. which the patient states that he has done at home. We will continue this here to follow the patient's calcium levels. We will monitor the patient on telemetry, check his QTC on the EKG. 2. History is positive for kidney disease and endstage renal disease. 3. Continue hemodialysis as advised by nephrology. The patient's electrolytes are appropriate at this time. We will recheck the BMP tomorrow. Continue the patient's home calcium supplements. Nephro-Leticia and PhosLo. 4. Headache. We will give the patient a one time dose of Fioricet and continue p.r.n. Tylenol and Percocet. I will also check CBC. 5. Hypoglycemia. The patient had a blood sugar of 66 here in the ER. He does not appear to be symptomatic. We will recheck a blood glucose level once and if it still remains well, we will monitor the patient's blood sugar more carefully while he is here. 6. FEN: The patient is ordered a renal diet. 7. DVT prophylaxis: He is on a KARI hose. 8. Code status: The patient is a full code. 9. Disposition: Discharge to home when medically stable. TIME SPENT: Time spent on this admission was approximately 60 minutes, more than half of that time was spent [id number] with the patient obtaining history and physical, performing physical examination, and reviewing the plan of care. Plan of care was also reviewed with my attending, Dr. Souza, who is in agreement. TIESHA WALLER, ALBINA [id number]/[facility] #: [id number] ZORA
[2017-04-03] MEDS ORDERED: traMADol TAB* 50 MG PO PRN (00:13)
[2017-04-03 05:22] LABS: Hematocrit 36 % (42-52); Hemoglobin 12.1 g/dl (14.0-18.0); Mean Corpuscular HGB Conc 33 g/dl (31-36); Mean Corpuscular Hemoglobin 33 pg (27-31); Mean Corpuscular Volume 98 fL (80-94); Mean Platelet Volume 8 um3 (7.4-10.4); Red Blood Count 3.72 10^6/ul (4.0-5.4); Red Cell Distribution Width 19 % (10.5-15); White Blood Count 4.8 10^3/ul (3.5-10.8)
[2017-04-03 05:36] LABS: BUN/Creatinine Ratio 5.8 (8-20); Calcium 8.5 mg/dL (8.6-10.3); EGFR African American 7.3 (>60); EGFR Non-African American 5.7 (>60); Potassium 4.5 mmol/L (3.5-5.0)
[2017-04-03] MEDS: Calcium Acetate CAP* 667 MG PO SCH ×2 (08:15→11:57)
[2017-04-03] MEDS: Calcium Carbonate CHEW TAB* 500 MG (TUMS) PO SCH ×3 (08:17→11:56)
[2017-04-03] MEDS: Calcitriol CAP* 0.25 MCG PO SCH (08:17)
[2017-04-03] MEDS: oxyCODONE/Acetamin 5/325 MG* TAB PO PRN (08:20)
[2017-04-03] MEDS ORDERED: Vitamin B Complex TAB PO SCH (09:00)
[2017-04-03] MEDS ORDERED: Folic Acid TAB* 1 MG PO SCH (09:00)
[2017-04-03 09:32] VITALS: BP 141/94
--- NOTE | 2017-04-03 12:43 | DS ---
CC: Dr. Orantes * DISCHARGE SUMMARY: DATE OF ADMISSION: 04/02/17 DATE OF DISCHARGE: 04/03/17 HISTORY OF PRESENT ILLNESS: This 31-year-old man presented with headache, photophobia, and tingling in his hands. He has had a parathyroidectomy many years ago. He has end-stage renal disease from polycystic kidney disease. He has been treated several times here with intravenous calcium gluconate. His calcitriol dose has steadily increased. We recently stopped his sodium bicarbonate and increased his calcium carbonate to 1500 mg four times a day. He has been very compliant with all his medications. He describes his headache as a migraine. He states that this is the first time he ever had one like this with photophobia. He did get tramadol with pretty good relief, although the headache is not completely gone. The ionized calcium on this admission was not as low as the ionized calcium on the last hospital overnight stay 3 days ago. On the day of his discharge, his ionized calcium had dropped to low to 4.01 and he got another 2 g of calcium gluconate IV. We did not check it again then. I sent off to add on vitamin D level. There were none in our system, I am sure the vitamin D level is in the _ ____ system. I also gave him a prescription for tramadol 50 mg every 12 hours p.r.n., maximum daily dose 2, dispensed 20, with no refills. His calcitriol was increased to 1 mcg b.i.d. only 2 days ago. He will continue on the same medications he came in on with the tramadol prescription. FINAL DIAGNOSES: 1. Hypocalcemia, status post remote parathyroidectomy. 2. End-stage renal disease due to polycystic kidney disease, on home hemodialysis. DISCHARGE MEDICATIONS: 1. Calcitriol 1 mcg b.i.d. 2. Tramadol 50 mg every 12 hours p.r.n. 3. Calcium carbonate 1500 mg four times a day. 4. Calcium acetate 3335 mg t.i.d. 5. Nephro-Leticia one daily. 6. Folic acid 0.5 mg daily. 7. Acetaminophen 975 mg every 6 hours p.r.n. 8. Oxycodone/acetaminophen 5/325 one to two tablets every 4 hours p.r.n. 9. Epoetin efraín 10,000 units twice weekly. [id number]/[facility] #: [id number] ZORA
== END 2017-04-03 12:25 | disposition home or self-care (01) ==
LOC: ED 13:47 → MEDTELE 16:50
PROVIDERS: ADMIT Internal Medicine; ATTEND Internal Medicine
DX: E83.51 Hypocalcemia (principal); N18.6 End stage renal disease; Z99.2 Dependence on renal dialysis; Z88.1 Allergy status to other antibiotic agents; Z88.0 Allergy status to penicillin; Z87.891 Personal history of nicotine dependence; R51 Headache
CPT/HCPCS: 36415; 80048; 80053; 82306; 82330; 82652; 83735; 84100; 85025; 93005; 99284; A9270-GY; G0378; J0610

== ENCOUNTER 2018-05-22 11:19 | Observation (INO) | payer MEDICARE, MEDICAID ==
[2018-05-22] MEDS ORDERED: NS 0.9% 1000 ML* 1,000 ML IV ONE (12:22)
[2018-05-22] MEDS ORDERED: Clindamycin 600 MG IVPREMIX(* 600 MG/50 ML SDV IV ONE (12:29)
[2018-05-22 12:46] LABS: ABS Basophils 0.1 10^3/ul (0-0.2); ABS Eosinophils 0.2 10^3/ul (0-0.6); ABS Lymphocytes 0.7 10^3/ul (1.0-4.8); ABS Monocytes 0.6 10^3/ul (0-0.8); ABS Neutrophils 3.2 10^3/ul (1.5-7.7); ABS Nucleated RBC 0 10^3/ul; Eosinophil % 4.2 % (0-6); Hematocrit 25 % (42-52); Hemoglobin 8.3 g/dl (14.0-18.0); Lymphocyte % 14.3 % (25-47); Mean Corpuscular HGB Conc 34 g/dl (31-36); Mean Corpuscular Hemoglobin 32 pg (27-31); Mean Corpuscular Volume 95 fL (80-94); Mean Platelet Volume 8.4 um3 (7.4-10.4); Nucleated Red Blood Cells % 0; Platelet Count 153 10^3/ul (150-450); Red Blood Count 2.62 10^6/ul (4.00-5.40); Red Cell Distribution Width 16 % (10.5-15); White Blood Count 4.7 10^3/ul (3.5-10.8)
[2018-05-22 12:54] LABS: INR 1.13 (0.77-1.02)
[2018-05-22] MEDS ORDERED: Morphine INJ** 4 MG/ML 1 ML CARPUJECT IV ONE ×2 (12:55→15:19)
[2018-05-22 13:04] LABS: EGFR Non-African American 5.7 (>60)
[2018-05-22] MEDS ORDERED: Morphine INJ* 4 MG/ML 1 ML SYRINGE (NEW SYRINGE VERSION) ONE (13:15)
[2018-05-22] MEDS ORDERED: Morphine INJ* 4 MG/ML 1 ML SYRINGE (NEW SYRINGE VERSION) IV ONE (14:00)
--- NOTE | 2018-05-22 15:21 | RAD ---
HISTORY: Left arm swelling in a patient with a left upper arm hemodialysis graft COMPARISON: None. TECHNIQUE: Multiple transverse and longitudinal ultrasound images were obtained of the veins and hemodialysis graft of the left upper extremity using grayscale, color Doppler, and spectral Doppler imaging with and without compression and with augmentation. FINDINGS: VEINS: There is no evidence of DVT in the veins of the left forearm. Normal color-flow in the radial and ulnar veins is recorded. Appropriate flow including color flow analysis and waveforms are recorded at the left internal jugular and subclavian veins. Graft: The graft extends from the proximal left brachial artery distally to what is suspected to be the cephalic vein. There is flow throughout the length of the graft. SOFT TISSUES: Grossly normal. IMPRESSION: 1. Limited sonography of the left upper extremity does not reveal any definite deep vein thrombosis. Evaluation of the upper arm veins is limited due to the presence of the patient's hemodialysis graft. 2. The hemodialysis graft appears to be patent without any areas of high-grade stenosis either in the graft or in the outflow cephalic vein.
--- NOTE | 2018-05-22 17:11 | ED ---
Upper Extremity Pain - HPI Summary HPI Summary: patient is a 32-year-old male with a history of CKD III requiring 4 days/ week home hemodialysis presenting to the ED with redness, swelling and warmth starting at the mid forearm extending down in through the hand. He is able to move all fingers, however states they feel stiff. He endorses a cold feeling in his hand and fingertips and endorses neuropathy. This has never happened to him before. AV fistula placed 5 years ago. He has never had an issue in the past with his fistula or his hemodialysis. He denies any fevers, sweats, chills. Denies any fluid retention otherwise or weight gain. He states he feels otherwise well. - History of Current Complaint Chief Complaint: EDExtremityUpper Stated Complaint: LT ARM SWELLING Time Seen by Provider: 05/22/18 11:47 Hx Obtained From: Patient Onset/Duration: Started Weeks Ago Timing: Constant Severity Initially: Moderate Severity Currently: Moderate Pain Location: Arm Character: Aching Aggravating Factor(s): Movement, Lifting, Flexion, Extension Alleviating Factor(s): Rest, Ice Associated Signs & Symptoms: Positive: Swelling, Redness, Numbness/Tingling Related History: Dominant Hand Right - Risk Factors Non-Orthopedic Risk Factor: Negative DVT Risk Factors: Negative Septic Arthritis Risk Factor: Negative Compartment Syndrome Risk Factors: Pain, Paresthesias - Allergies/Home Medications Allergies/Adverse Reactions: Allergies Allergy/AdvReac Type Severity Reaction Status Date / Time bee venom protein (honey bee) Allergy Anaphylatic Verified 05/22/18 11:22 Shock cefazolin [From Ancef] Allergy Unknown Verified 05/22/18 11:22 Reaction Details cephalexin [From Keflex] Allergy Unknown Verified 05/22/18 11:22 Reaction Details Iodinated Contrast- Oral and Allergy Unknown Verified 05/22/18 11:22 IV Dye Reaction Details Penicillins Allergy Unknown Verified 05/22/18 11:22 Reaction Details vancomycin Allergy Unknown Verified 05/22/18 11:22 Reaction Details PMH/Surg Hx/FS Hx/Imm Hx Previously Healthy: No - CKD III Endocrine/Hematology History: Reports: Hx Anticoagulant Therapy - HEPARIN DURING DIALYSIS, Hx Thyroid Disease - PARTIAL PARATHYROIDECTOMY Denies: Hx Diabetes Cardiovascular History: Reports: Hx Angina, Hx Hypertension, Other Cardiovascular Problems/Disorders - Pericarditis Denies: Hx Coronary Artery Disease, Hx Hypercholesterolemia, Hx Myocardial Infarction, Hx Pacemaker/ICD, Hx Valvular Heart Disease Respiratory History: Denies: Hx Asthma, Hx Chronic Obstructive Pulmonary Disease (COPD) History: Reports: Hx Chronic Renal Failure - hemodialysis 4x/week at home, Hx Renal Disease - dialysis , , wed Sensory History: Reports: Hx Contacts or Glasses Denies: Hx Hearing Aid Opthamlomology History: Reports: Hx Contacts or Glasses Neurological History: Denies: Hx Dementia, Hx Seizures Psychiatric History: Denies: Hx Substance Abuse - Surgical History Surgery Procedure, Year, and Place: PARTIAL PARATHYROIDECTOMY, L ARM GRAFT, R LEG GRAFT, HEMODYALISIS CATHETER PLACEMENT, KIDNEY TRANSPLANT X2 - Immunization History Date of Tetanus Vaccine: [facility] Date of Influenza Vaccine: Fall 2015 Hx Pertussis Vaccination: No Immunizations Up to Date: Yes Infectious Disease History: No Infectious Disease History: Denies: Hx Hepatitis, Hx Human Immunodeficiency Virus (HIV), Hx of Known/ Suspected MRSA, Traveled Outside the in Last 30 Days - Family History Known Family History: Positive: None Negative: Cardiac Disease - Social History Occupation: Unemployed Lives: With Family Alcohol Use: None Hx Substance Use: No Substance Use Type: Reports: None Hx Tobacco Use: Yes Smoking Status (MU): Former Smoker Type: Cigarettes Amount Used/How Often: 1 pack lasted 4 days Length of Time of Smoking/Using Tobacco: 12 years Have You Smoked in the Last Year: No Review of Systems Constitutional: Negative Negative: Fever, Chills, Fatigue, Skin Diaphoresis Negative: Palpitations, Chest Pain Negative: Shortness Of Breath Genitourinary: Negative Positive: no symptoms reported, see HPI Positive: Edema - swelling to the left and rightforearm and hand. Negative: Arthralgia, Myalgia Positive: Other - erythema and warmth to the wrist Neurological: Negative All Other Systems Reviewed And Are Negative: Yes - don't find anything Physical Exam Triage Information Reviewed: Yes Vital Signs On Initial Exam: Initial Vitals Temp Pulse Resp BP Pulse Ox 98.1 F 80 18 168/103 100 05/22/18 11:22 05/22/18 11:22 05/22/18 11:22 05/22/18 11:22 05/22/18 11:22 Vital Signs Reviewed: Yes Appearance: Positive: Well-Appearing, Well-Nourished Skin: Positive: Warm, Other - erythema and warmth to the wrist and swelling and cold to touch of the hand Head/Face: Positive: Normal Head/Face Inspection Eyes: Positive: EOMI, ROC, Conjunctiva Clear Neck: Positive: No Lymphadenopathy Respiratory/Lung Sounds: Positive: Clear to Auscultation, Breath Sounds Present Cardiovascular: Positive: RRR, Pulses are Symmetrical in both Upper and Lower Extremities - confirmed by doppler. Negative: Leg Edema Left, Leg Edema Right Musculoskeletal: Positive: Pain @ - to touch of the left dorsum of the wrist and hand, Edema Left - wrist and hand Neurological: Positive: Speech Normal Psychiatric: Positive: Normal, Affect/Mood Appropriate AVPU Assessment: Alert Diagnostics - Vital Signs Vital Signs Temp Pulse Resp BP Pulse Ox 05/22/18 15:46 18 05/22/18 13:24 20 05/22/18 11:22 98.1 F 80 18 168/103 100 - Laboratory Lab Results: Lab Results 05/22/18 05/22/18 05/22/18 Range/Units 12:37 12:37 12:37 WBC 4.7 (3.5-10.8) 10^3/ul RBC 2.62 L (4.00-5.40) 10^6/ul Hgb 8.3 L (14.0-18.0) g/dl Hct 25 L (42-52) % MCV 95 H (80-94) fL MCH 32 H (27-31) pg MCHC 34 (31-36) g/dl RDW 16 H (10.5-15) % Plt Count 153 (150-450) 10^3/ul MPV 8.4 (7.4-10.4) um3 Neut % (Auto) 67.6 (38-83) % Lymph % (Auto) 14.3 L (25-47) % [place] % (Auto) 12.7 H (0-7) % Eos % (Auto) 4.2 (0-6) % Baso % (Auto) 1.2 (0-2) % Absolute Neuts (auto) 3.2 (1.5-7.7) 10^3/ul Absolute Lymphs (auto) 0.7 L (1.0-4.8) 10^3/ul Absolute Monos (auto) 0.6 (0-0.8) 10^3/ul Absolute Eos (auto) 0.2 (0-0.6) 10^3/ul Absolute Basos (auto) 0.1 (0-0.2) 10^3/ul Absolute Nucleated RBC 0 10^3/ul Nucleated RBC % 0 ESR 73 H (0-14) mm/Hr INR (Anticoag Therapy) 1.13 H (0.77-1.02) APTT 31.2 (26.0-36.3) seconds Sodium 140 (135-145) mmol/L Potassium 4.4 (3.5-5.0) mmol/L Chloride 97 L (101-111) mmol/L Carbon Dioxide 31 (22-32) mmol/L Anion Gap 12 H (2-11) mmol/L BUN 57 H (6-24) mg/dL Creatinine 10.58 H (0.67-1.17) mg/dL Est GFR ( Amer) 6.9 (>60) Est GFR (Non-Af Amer) 5.7 (>60) BUN/Creatinine Ratio 5.4 L (8-20) Glucose 75 (70-100) mg/dL Lactic Acid (0.5-2.0) mmol/L Calcium 7.7 L (8.6-10.3) mg/dL Total Bilirubin 0.50 (0.2-1.0) mg/dL AST 23 (13-39) U/L ALT 20 (7-52) U/L Alkaline Phosphatase 89 (34-104) U/L C-Reactive Protein 22.32 H (<8.01) mg/L Total Protein 8.2 (6.4-8.9) g/dL Albumin 4.5 (3.2-5.2) g/dL Globulin 3.7 (2-4) g/dL Albumin/Globulin Ratio 1.2 (1-3) 05/22/18 Range/Units 12:37 WBC (3.5-10.8) 10^3/ul RBC (4.00-5.40) 10^6/ul Hgb (14.0-18.0) g/dl Hct (42-52) % MCV (80-94) fL MCH (27-31) pg MCHC (31-36) g/dl RDW (10.5-15) % Plt Count (150-450) 10^3/ul MPV (7.4-10.4) um3 Neut % (Auto) (38-83) % Lymph % (Auto) (25-47) % [place] % (Auto) (0-7) % Eos % (Auto) (0-6) % Baso % (Auto) (0-2) % Absolute Neuts (auto) (1.5-7.7) 10^3/ul Absolute Lymphs (auto) (1.0-4.8) 10^3/ul Absolute Monos (auto) (0-0.8) 10^3/ul Absolute Eos (auto) (0-0.6) 10^3/ul Absolute Basos (auto) (0-0.2) 10^3/ul Absolute Nucleated RBC 10^3/ul Nucleated RBC % ESR (0-14) mm/Hr INR (Anticoag Therapy) (0.77-1.02) APTT (26.0-36.3) seconds Sodium (135-145) mmol/L Potassium (3.5-5.0) mmol/L Chloride (101-111) mmol/L Carbon Dioxide (22-32) mmol/L Anion Gap (2-11) mmol/L BUN (6-24) mg/dL Creatinine (0.67-1.17) mg/dL Est GFR ( Amer) (>60) Est GFR (Non-Af Amer) (>60) BUN/Creatinine Ratio (8-20) Glucose (70-100) mg/dL Lactic Acid 0.6 (0.5-2.0) mmol/L Calcium (8.6-10.3) mg/dL Total Bilirubin (0.2-1.0) mg/dL AST (13-39) U/L ALT (7-52) U/L Alkaline Phosphatase (34-104) U/L C-Reactive Protein (<8.01) mg/L Total Protein (6.4-8.9) g/dL Albumin (3.2-5.2) g/dL Globulin (2-4) g/dL Albumin/Globulin Ratio (1-3) Result Diagrams: 05/22/18 12:37 05/22/18 12:37 Lab Statement: Any lab studies that have been ordered have been reviewed, and results considered in the medical decision making process. - Ultrasound No standard instances Ultrasound Interpretation: No Acute Changes - Does not reveal any definite deep vein thrombosis, graft appears to be patent without any areas of high-grade stenosis either in the graft or in the outflow cephalic vein, Positive (See Comments) Ultrasound Interpretation Completed By: Radiologist Course/Dx - Course Course Of Treatment: Patient is evaluated for left forearm and hand redness, swelling and warmth to the wrist with cold feeling to the hand and fingers. On physical examination, approximately at the forearm there appears to be swelling , erythema and warmth extending into the wrist. The hand is with swelling and a cold sensation to touch with significantly delayed cap refill and weak pulse. Pulse was found however through Doppler. Upper extremity vein Doppler of the left arm obtained which shows no evidence of high-grade stenosis in the graft or in the outflow cephalic vein. No evidence of DVT. Patient is given (2) 4 mg doses of morphine with good relief. Labs obtained which show a slightly elevated CRP and ESR, however this is normal for this patient. Also with a decreased H&H, which is also normal for this patient. He denies any dizziness, lightheadedness or headaches. As patient is immunocompromised, CKD III, I discussed this case with the hospitalist and have recommended admission. Due to weak pulse and cold fingertips with swelling, a CTA was recommended by hospitalist. Dr. Forman recommended arterial duplex if unable to find pulse. At this time, doppler used to find pulses intact bilaterally. Discussed results with patient who is agreeable to an admission. clindamycin IV given. Patient has documented allergy to contrast so Benadryl and steroid given. He states this has worked for him in the past. - Diagnoses Differential Diagnosis/HQI/PQRI: Positive: Other - Aneurysm, pseudoaneurysm, DVT , cellulitis, fistula problem, swelling, entrapment Provider Diagnoses: Cellulitis Discharge - Sign-Out/Discharge Documenting (check all that apply): Sign-Out Patient Signing out patient TO: Desmond Isidro - awaiting CTA scan - Discharge Plan Condition: Stable Disposition: HOME Referrals: David Orantes MD [Primary Care Provider] - - Billing Disposition and Condition Condition: STABLE Disposition: Home
[2018-05-22] MEDS ORDERED: methylPREDNISolone SOD 40 MG* 1 ML VIAL IV ONE (17:16)
[2018-05-22] MEDS ORDERED: diPHENhydraMINE IV* 50 MG/ML 1 ml VIAL (BENADRYL) IV ONE (17:16)
--- NOTE | 2018-05-22 17:22 | PN ---
Progress Note - Progress Note Date of Service: 05/22/18 Note: CT states per policy must medicate and then wait 13 hours prior to administration of the IV contrast Will at this time proceed with CT without contrast.
[2018-05-22] MEDS ORDERED: NS 0.9% 500 ML* 500 ML IV SCH (18:00)
--- NOTE | 2018-05-22 19:25 | RAD ---
INDICATION: Left hand paresthesia and delayed capillary refill the patient with a left upper arm arteriovenous graft COMPARISON: None. TECHNIQUE: Garcia scale, color Doppler, and spectral analysis was performed to evaluate the arteries of the bilateral upper extremities. REPORT: The visualized arteries are patent. Unless otherwise specified below the flow velocities of the bilateral subclavian, brachial, radial and ulnar arteries are within normal limits. Flow velocities in the left subclavian artery measures up to 263 cm/s at the proximal portion of the artery. Distal to the graft anastomosis the flow velocity in the brachial artery is 213 cm/s. Normal triphasic arterial flow is seen in all arteries with the exception of the ulnar artery which loses normal diastolic flow reversal. IMPRESSION: Elevated flow velocities are recorded in the proximal and midportion of the left subclavian artery as high as 263 cm/s which are indicative of stenosis. Nevertheless, adequate arterial flow exhibiting normal arterial waveforms are seen in all arteries of the left upper extremity both above and below the arterial anastomosis with the graft. If clinically warranted further characterization can be made with CT angiography including the arch of the thoracic aorta extending as far as the left hand.
[2018-05-22] MEDS ORDERED: Morphine VIAL* 10 MG/ML 1 ML VIAL IV ONE (19:38)
--- NOTE | 2018-05-22 19:40 | PN ---
Progress Note - Progress Note Date of Service: 05/22/18 Note: . Patient signed out to me by Abbey MARTINEZ awaiting results from arterial duplex of left upper extremity. Arterial duplex of left upper extremity was negative for occlusion. Per prior conversation with hospitalist by Abbey Lowry patient will be [place] [facility] [place] in stable condition. Vital signs are stable.
--- NOTE | 2018-05-22 21:47 | HP ---
H&P (Free Text) History and Physical: PCP: See Orantes MD Date/Time: 05/22/2018 2130 CC: LUE warmth, pain, & swelling HPI: Mr Peacock is a 32YO male HX ESRD-home HD 4x/wk, secondary hyperparathyroidism s/p parathyroidectomy, & pericarditis presents reporting having been scratched by his cat ~1 week ago with subsequent gradual redness, swelling, warmth, & pain in the LUE in which his fistula resides. He denies F/C , sweats, N/V, SOB, chest pain, or other issues. There are no draining wounds. To complicate matters, his home HD machine broke last week and rather than the 4 sessions he normally takes he was only able to perform 1 complete and 2 sessions of ~2/3 normal duration. He did see See Orantes MD nephrology Wednesday with a plan to do daily home dialysis to bring him down to his dry weight. Additionally, his capillary refill in the L hand is notably delayed and an LUE arterial US has identified a stenosis in the L subclavian artery. I apprised Dr Orantes of his findings and pending admission. He requested not to perform a CTA as he will refer him back to his vascular surgeon for a formal arteriogram and possible angioplasty upon discharge. PMedHx ESRD-home HD 4/wk at baseline, currently advised QD secondary hyperparathyroidism s/p parathyroidectomy pericarditis anenia of renal disease Ambulatory Orders Calcium Acetate CAP* [Phoslo CAP*] 3,335 mg PO TID 09/20/12 Folic Acid/Vit B Complex and C [Nephro-Leticia Tablet] 1 tab PO DAILY 11/30/13 Acetaminophen TAB* [Tylenol TAB*] 975 mg PO Q6HR PRN #0 02/09/17 Folic Acid TAB* [Folvite TAB*] 0.5 mg PO DAILY tab 02/09/17 oxyCODONE/Acetamin 5/325 MG* [Percocet 5/325 TAB*] 1 - 2 tab PO Q4H PRN #60 tab MDD 12 tabs 02/09/17 Epoetin Giovany* [Epogen*] 10,000 units INJ .TWICE WEEKLY 04/02/17 Calcitriol CAP* [Rocaltrol CAP*] 1 mcg PO BID cap 04/03/17 Calcium Carbonate CHEW TAB* [Tums*] 1,500 mg PO QID tab.chew 04/03/17 traMADol TAB* [Ultram*] 50 mg PO Q12H PRN #20 tab MDD 2 04/03/17 Allergies bee venom protein (honey bee) Allergy (Verified 05/22/18 11:22) Anaphylatic Shock cefazolin [From Ancef] Allergy (Verified 05/22/18 11:22) Unknown Reaction Details cephalexin [From Keflex] Allergy (Verified 05/22/18 11:22) Unknown Reaction Details Iodinated Contrast- Oral and IV Dye Allergy (Verified 05/22/18 11:22) Unknown Reaction Details Penicillins Allergy (Verified 05/22/18 11:22) Unknown Reaction Details vancomycin Allergy (Verified 05/22/18 11:22) Unknown Reaction Details PSurgHx LUE fistula placement renal transplant x2 parathyroidectomy appendectomy SocHx: former smoker w/ <5 PYHX, rare alcohol, no recreational drugs; lives with girl friend; 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; full code status FamHx: reviewed & non-contributory to presentation ROS: as above, otherwise reviewed and all were negative vitals: Vital Signs Temp 36.7 C 05/22/18 11:22 Pulse 88 05/22/18 15:14 Resp 16 05/22/18 19:44 BP 160/102 05/22/18 16:13 Pulse Ox 100 05/22/18 15:14 Intake & Output 05/21/18 05/22/18 05/22/18 23:59 11:59 23:59 Intake Total 100 Balance 100 Weight 67 kg Intake: IV Fluids 100 Constitutional: NAD, normally developed, well-nourished male HEENM: atraumatic; sclera/conjunctiva: anicteric/clear; hearing: clinically intact; oropharynx: clear, mucosa moist Neck: soft tissue: non-tender; thyroid: no tenderness Pulmonary: clear to auscultation bilaterally, good aeration, no accessory muscle use CV: RR/RR, normal S1S2, no carotid bruit, no jugular venous distention, 2+ B DP/ PT, no edema, LUE capillary refill ~3.5s Abdominal: soft, non-distended, non-tender, no rebound/guarding/rigidity, normoactive bowel sounds, no hepatosplenomegaly or masses, no costovertebral angle tenderness Musculoskeletal: general: grossly intact; LUE w/ swelling, warmth, and tenderness involving the distal 1/3 of the forearm with focal induration of the medial aspect of this area Integumental: healing scratch of the L hand thenar area, similar scratch to the posterior 3rd/4th interdigital; neither with drainage or evidence of focal inflammation Psychiatric orientation: AA&O to PPS affect: calm mood: cooperative eye contact: fair content: reliable responses: timely insight: fair Testing: Lab Results 05/22/18 05/22/18 05/22/18 Range/Units 12:37 12:37 12:37 WBC 4.7 (3.5-10.8) 10^3/ul RBC 2.62 L (4.00-5.40) 10^6/ul Hgb 8.3 L (14.0-18.0) g/dl Hct 25 L (42-52) % MCV 95 H (80-94) fL MCH 32 H (27-31) pg MCHC 34 (31-36) g/dl RDW 16 H (10.5-15) % Plt Count 153 (150-450) 10^3/ul MPV 8.4 (7.4-10.4) um3 Neut % (Auto) 67.6 (38-83) % Lymph % (Auto) 14.3 L (25-47) % Person % (Auto) 12.7 H (0-7) % Eos % (Auto) 4.2 (0-6) % Baso % (Auto) 1.2 (0-2) % Absolute Neuts (auto) 3.2 (1.5-7.7) 10^3/ul Absolute Lymphs (auto) 0.7 L (1.0-4.8) 10^3/ul Absolute Monos (auto) 0.6 (0-0.8) 10^3/ul Absolute Eos (auto) 0.2 (0-0.6) 10^3/ul Absolute Basos (auto) 0.1 (0-0.2) 10^3/ul Absolute Nucleated RBC 0 10^3/ul Nucleated RBC % 0 ESR 73 H (0-14) mm/Hr INR (Anticoag Therapy) 1.13 H (0.77-1.02) APTT 31.2 (26.0-36.3) seconds Sodium 140 (135-145) mmol/L Potassium 4.4 (3.5-5.0) mmol/L Chloride 97 L (101-111) mmol/L Carbon Dioxide 31 (22-32) mmol/L Anion Gap 12 H (2-11) mmol/L BUN 57 H (6-24) mg/dL Creatinine 10.58 H (0.67-1.17) mg/dL Est GFR ( Amer) 6.9 (>60) Est GFR (Non-Af Amer) 5.7 (>60) BUN/Creatinine Ratio 5.4 L (8-20) Glucose 75 (70-100) mg/dL Lactic Acid (0.5-2.0) mmol/L Calcium 7.7 L (8.6-10.3) mg/dL Total Bilirubin 0.50 (0.2-1.0) mg/dL AST 23 (13-39) U/L ALT 20 (7-52) U/L Alkaline Phosphatase 89 (34-104) U/L C-Reactive Protein 22.32 H (<8.01) mg/L Total Protein 8.2 (6.4-8.9) g/dL Albumin 4.5 (3.2-5.2) g/dL Globulin 3.7 (2-4) g/dL Albumin/Globulin Ratio 1.2 (1-3) // Range/Units 12:37 WBC (3.5-10.8) 10^3/ul RBC (4.00-5.40) 10^6/ul Hgb (14.0-18.0) g/dl Hct (42-52) % MCV (80-94) fL MCH (27-31) pg MCHC (31-36) g/dl RDW (10.5-15) % Plt Count (150-450) 10^3/ul MPV (7.4-10.4) um3 Neut % (Auto) (38-83) % Lymph % (Auto) (25-47) % Person % (Auto) (0-7) % Eos % (Auto) (0-6) % Baso % (Auto) (0-2) % Absolute Neuts (auto) (1.5-7.7) 10^3/ul Absolute Lymphs (auto) (1.0-4.8) 10^3/ul Absolute Monos (auto) (0-0.8) 10^3/ul Absolute Eos (auto) (0-0.6) 10^3/ul Absolute Basos (auto) (0-0.2) 10^3/ul Absolute Nucleated RBC 10^3/ul Nucleated RBC % ESR (0-14) mm/Hr INR (Anticoag Therapy) (0.77-1.02) APTT (26.0-36.3) seconds Sodium (135-145) mmol/L Potassium (3.5-5.0) mmol/L Chloride (101-111) mmol/L Carbon Dioxide (22-32) mmol/L Anion Gap (2-11) mmol/L BUN (6-24) mg/dL Creatinine (0.67-1.17) mg/dL Est GFR ( Amer) (>60) Est GFR (Non-Af Amer) (>60) BUN/Creatinine Ratio (8-20) Glucose (70-100) mg/dL Lactic Acid 0.6 (0.5-2.0) mmol/L Calcium (8.6-10.3) mg/dL Total Bilirubin (0.2-1.0) mg/dL AST (13-39) U/L ALT (7-52) U/L Alkaline Phosphatase (34-104) U/L C-Reactive Protein (<8.01) mg/L Total Protein (6.4-8.9) g/dL Albumin (3.2-5.2) g/dL Globulin (2-4) g/dL Albumin/Globulin Ratio (1-3) US LUE venous: IMPRESSION: 1. Limited sonography of the left upper extremity does not reveal any definite deep vein thrombosis. Evaluation of the upper arm veins is limited due to the presence of thepatient's hemodialysis graft. 2. The hemodialysis graft appears to be patent without any areas of high- grade stenos is either in the graft or in the outflow cephalic vein. US LUE arterial: IMPRESSION: Elevated flow velocities are recorded in the proximal and midportion of the left subclavian artery as high as 263 cm/s which are indicative of stenosis. Nevertheless, adequate arterial flow exhibiting normal arterial waveforms are seen in all arteries of the left upper extremity both above and below the arterial anastomosis with the graft. If clinically warranted further characterization can be made with CT angiography including the arch of the thoracic aorta extending as far as the left hand. Impression: 32M HX ESRD-home HD 4x/wk, secondary hyperparathyroidism s/p parathyroidectomy, & pericarditis presents with cellulitis of LUE following cat scratch as well as an increase of his weight 2nd insufficient HD recently and finding on US of L subclavian stenosis DIAGNOSIS & PLAN Primary cellulitis of LUE following cat scratch : IV clindamycin : hold IVFs 2nd concomitant volume overload : blood CXs : supportive care ESRD- home HD : increase of his weight 2nd insufficient HD : See Orantes MD consulted, will arrange inpatient HD tomorrow : renal diet : labs in AM L subclavian stenosis on US : no CTA at this time : Dr Orantes will refer to vascular surgery upon discharge for further evaluation anemia of renal disease : stable, periodic monitoring Admission Rational: observation for initiation of ABX for LUE cellulitis DVTp: KARI Code Status: full
[2018-05-22] MEDS ORDERED: Melatonin 3 MG TAB PO PRN (23:04)
[2018-05-22] MEDS ORDERED: Acetaminophen TAB* 325 MG PO PRN (23:04)
[2018-05-22] MEDS ORDERED: Ondansetron ODT TAB* 4 MG PO PRN (23:04)
[2018-05-22] MEDS ORDERED: traMADol TAB* 50 MG PO PRN (23:06)
[2018-05-22] MEDS ORDERED: oxyCODONE TAB* 5 MG TAB PO PRN (23:07)
[2018-05-22] MEDS ORDERED: Epoetin Alfa* 10,000 UNITS/ML VIAL SUBCUT SCH (23:45)
[2018-05-23] MEDS: Clindamycin 300 MG IVPREMIX(* 300 MG/50 ML SDV IV SCH ×2 (00:31→08:36)
[2018-05-23] MEDS ORDERED: HYDROmorphone INJ1* 1 MG/ML SYRINGE IV ONE (01:21)
[2018-05-23] MEDS ORDERED: oxyCODONE TAB* 5 MG TAB PO PRN (02:51)
[2018-05-23 07:25] LABS: ABS Basophils 0.1 10^3/ul (0-0.2); ABS Eosinophils 0.3 10^3/ul (0-0.6); ABS Lymphocytes 0.7 10^3/ul (1.0-4.8); ABS Nucleated RBC 0 10^3/ul; Eosinophil % 4.4 % (0-6); Hematocrit 25 % (42-52); Hemoglobin 8.5 g/dl (14.0-18.0); Lymphocyte % 10.4 % (25-47); Mean Corpuscular HGB Conc 34 g/dl (31-36); Mean Corpuscular Hemoglobin 32 pg (27-31); Mean Corpuscular Volume 94 fL (80-94); Mean Platelet Volume 7.9 um3 (7.4-10.4); Nucleated Red Blood Cells % 0.1; Platelet Count 158 10^3/ul (150-450); Red Blood Count 2.66 10^6/ul (4.00-5.40); Red Cell Distribution Width 16 % (10.5-15)
[2018-05-23 07:37] VITALS: BP 162/84
[2018-05-23 07:48] LABS: EGFR Non-African American 4.9 (>60)
[2018-05-23] MEDS: Calcium Acetate CAP* 667 MG PO SCH ×2 (08:42→13:55)
[2018-05-23] MEDS: Calcium Carbonate CHEW TAB* 500 MG (TUMS) PO SCH ×2 (08:43→13:55)
[2018-05-23] MEDS ORDERED: Folic Acid TAB* 1 MG PO SCH (09:00)
[2018-05-23] MEDS ORDERED: Calcitriol CAP* 0.25 MCG PO SCH (09:00)
[2018-05-23] MEDS ORDERED: Heparin DIALYSIS ONLY(*) 1,000 UNITS/ML VIAL DIALYSIS ONE (12:00)
[2018-05-23] MEDS ORDERED: Epoetin Alfa* 10,000 UNITS/ML VIAL IV ONE (12:00)
--- NOTE | 2018-05-23 13:01 | TRS ---
TRANSFER SUMMARY: DATE OF ADMISSION: DATE OF TRANSFER: 05/23/18 DISPOSITION ON DISCHARGE: [facility]. REASON FOR TRANSFER: Access to Vascular Surgery in addition to the patient's preference. CONDITION ON DISCHARGE: Stable. HOME MEDICATIONS: Include: 1. Tramadol 50 mg every 12 hours as needed. 2. Percocet 5/325 one to two tabs every 4 hours as needed. 3. Nephro-Leticia tablet, 1 tab daily. 4. Folic acid 0.5 mg daily. 5. Epogen 10,000 units twice weekly. 6. Calcium carbonate 1500 mg 4 times daily. 7. PhosLo 3335 mg 3 times daily. 8. Calcitriol 1 mcg twice daily. 9. Acetaminophen 975 mg every 4 hours as needed for pain. Additionally, the patient received clindamycin on presentation to the emergency room 300 mg IV for a total of 2 doses, last administered dose was 8:36 a.m. on 05/23/18. PERTINENT IMAGING STUDIES: Venous Doppler study: Limited study of the left upper extremity, does not reveal any definite deep vein thrombosis. Evaluation of the upper arm vein is limited due to the presence of the patient's hemodialysis graft. The hemodialysis graft appears to be patent without any areas of high-grade stenosis either in the graft or outflow cephalic vein. Duplex scan upper extremity artery, left upper extremity, impression: Elevated flow velocities are recorded in the proximal and midpoint of the left subclavian artery as high as 263 cm/sec, which are indicative of stenosis. Nevertheless, adequate arterial flow exhibiting normal arterial waveforms are seen in all arteries of the left upper extremity, both above and below the arterial anastomosis with the graft. If clinically warranted, further characterization can be made with a CT angiogram including arch, thoracic aorta extending as far as the left hand. PRIMARY DIAGNOSIS: Anemia. DISCHARGE DIAGNOSES: 1. Left arm cellulitis. 2. Left subclavian artery stenosis. PERTINENT LABORATORY DATA: White blood cell count on presentation 4.7, increased to 7.0 on discharge; ESR 73; hemoglobin 8.3. Sodium 137, potassium 4.2 , chloride 96, bicarb 27, anion gap 14, BUN 62, creatinine 12.0, glucose 97, lactic acid 0.6, calcium 7.2, phosphorous 5.7, magnesium 1.7. CRP is 22.3. HISTORY OF PRESENT ILLNESS/HOSPITAL COURSE: This is a 32-year-old man with past medical history of polycystic kidney disease, reportedly on dialysis for 17 years with 2 failed kidney transplants, also history of hyperparathyroidism, status post parathyroidectomy with a secondary hypocalcemia, pericarditis, left upper extremity fistula, who had been in his usual state of health until he experienced a cat scratch to his left thenar eminence approximately 1 week ago on Wednesday, developed slowly progressive erythema of the left arm including in addition to increased swelling. He denies any nausea, vomiting, fevers, chills , night sweats. The same week his home hemodialysis machine broke, he missed several episodes of HD with an increase of his dry weight from 67 kg to 75 kg associated with nausea as well as shortness of breath. Reports his weight prior to this admission was back down to 69 kg and his shortness of breath as well as other associated symptomatology has resolved. When seen in the emergency room, there was concern for left arm cellulitis as well as a notable subclavian artery stenosis. He was admitted to the hospital and was started on clindamycin as noted above, received 2 doses, last was this morning at 8:30 in the morning. 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 Orantes, who requested further evaluation as outpatient management and referral to his vascular surgeon. It appeared he was not started on any anticoagulation. I discussed the results above with the patient , who wishes to be transferred to [facility] for further evaluation of his subclavian stenosis. Discussed at length my preference to transfer him with BLS and ambulance, given his active infection as well as arterial stenosis likely in the setting of thrombus. He declines ambulance whether it would be covered by insurance or not. Discussed the risks associated with transferring with his current girlfriend, who is present during our conversation, which would include severe morbidity include heart attack, neurological compromise, worsening infection, sepsis, or . He acknowledged his understanding, acknowledged these risks, and still wishes to proceed to transfer via his own transportation. He acknowledges he will proceed directly to [facility] without any intervening stops. The patient is stable at the time of transfer. Please do not to hesitate to contact with additional questions or concerns. TIME SPENT: Greater than 45 minutes was spent on the transfer of this patient, which greater than half was spent [id number] with the patient and his girlfriend. [id number]/[facility] #: [id number] ZORA
== END 2018-05-23 15:25 | disposition home or self-care (01) ==
LOC: ED 11:19 → MED 22:58
PROVIDERS: ADMIT Hospitalist; ATTEND Internal Medicine
DX: S40.812A Abrasion of left upper arm, initial encounter (principal); L03.114 Cellulitis of left upper limb; W55.03XA Scratched by cat, initial encounter; I12.0 Hypertensive chronic kidney disease with stage 5 chronic kidney disease or end stage renal disease; N18.6 End stage renal disease; D63.1 Anemia in chronic kidney disease; Z99.2 Dependence on renal dialysis; M79.89 Other specified soft tissue disorders; I70.208 Unspecified atherosclerosis of native arteries of extremities, other extremity; Z87.891 Personal history of nicotine dependence; E21.3 Hyperparathyroidism, unspecified; I31.9 Disease of pericardium, unspecified; Z79.899 Other long term (current) drug therapy; Z88.1 Allergy status to other antibiotic agents; Z88.0 Allergy status to penicillin; Z91.041 Radiographic dye allergy status; Z79.01 Long term (current) use of anticoagulants; I20.9 Angina pectoris, unspecified
CPT/HCPCS: 36415; 80048; 80053; 83605; 83735; 84100; 85025; 85610; 85652; 85730; 86140; 87040; 96365; 96366; 96375; 96376; 99285; A9270-GY; G0378; J0885; J1170; J1644; J2270

== ENCOUNTER 2018-08-31 16:27 | Emergency (ER) | payer MEDICARE, MEDICAID ==
--- NOTE | 2018-08-31 20:21 | ED ---
HPI Chest Pain - HPI Summary HPI Summary: A 33 y/o M presents to ED with L-sided CP onset 0300 this date and continuing throughout the day. He says the pain is worsening and improving, just remaining. Associated sx: SOB. Denies n/v. Aggravating factors: inspiration, laying flat. Alleviating factors: sleeping upright. PMHx: pericarditis. His first episode of pericarditis was about 5 years ago and so severe that he was flown to [facility] and underwent surgery. He has had a few episodes since , but not nearly so severe, and he tries to catch it early. He states today's sx are similar to previous episodes of early pericarditis. Pt is on hemodialysis and last received it on 08/29/18. He was supposed to do it today, but did not due to the CP. He is awaiting a kidney transplant. Pt was started on an ABX for an open wound two days ago. - History of Current Complaint Chief Complaint: EDChestPainROMI Time Seen by Provider: 08/31/18 20:16 Hx Obtained From: Patient, Family/Betting Agency Counter Clerk - rosa present Onset/Duration: Started Hours Ago, Atraumatic, Still Present Timing: Constant Initial Severity: Moderate Current Severity: Moderate Pain Intensity: 6 Pain Scale Used: 0-10 Numeric Chest Pain Location: Left Anterior, Left Lateral Aggravating Factor(s): Position, Deep Breaths Alleviating Factor(s): Upright Position Associated Signs and Symptoms: Positive: Shortness of Breath. Negative: Nausea , Vomiting - Additional Pertinent History Primary Care Physician: AMY - Allergy/Home Medications Allergies/Adverse Reactions: Allergies Allergy/AdvReac Type Severity Reaction Status Date / Time bee venom protein (honey bee) Allergy Anaphylatic Verified 08/31/18 18:41 Shock cefazolin [From Ancef] Allergy Unknown Verified 08/31/18 18:41 Reaction Details cephalexin [From Keflex] Allergy Unknown Verified 08/31/18 18:41 Reaction Details Iodinated Contrast- Oral and Allergy Unknown Verified 08/31/18 18:41 IV Dye Reaction Details Penicillins Allergy Unknown Verified 08/31/18 18:41 Reaction Details vancomycin Allergy Unknown Verified 08/31/18 18:41 Reaction Details PMH/Surg Hx/FS Hx/Imm Hx Previously Healthy: No Endocrine/Hematology History: Reports: Hx Anticoagulant Therapy - HEPARIN DURING DIALYSIS, Hx Thyroid Disease - PARTIAL PARATHYROIDECTOMY Denies: Hx Diabetes Cardiovascular History: Reports: Hx Angina, Hx Hypertension, Other Cardiovascular Problems/Disorders - Pericarditis Denies: Hx Coronary Artery Disease, Hx Hypercholesterolemia, Hx Myocardial Infarction, Hx Pacemaker/ICD, Hx Valvular Heart Disease Respiratory History: Denies: Hx Asthma, Hx Chronic Obstructive Pulmonary Disease (COPD) History: Reports: Hx Chronic Renal Failure - hemodialysis 4x/week at home, Hx Renal Disease - dialysis tues, th, sat Sensory History: Reports: Hx Contacts or Glasses Denies: Hx Hearing Aid Opthamlomology History: Reports: Hx Contacts or Glasses Neurological History: Denies: Hx Dementia, Hx Seizures Psychiatric History: Denies: Hx Substance Abuse - Surgical History Surgery Procedure, Year, and Place: PARTIAL PARATHYROIDECTOMY, L ARM GRAFT, R LEG GRAFT, HEMODYALISIS CATHETER PLACEMENT, KIDNEY TRANSPLANT X2 - Immunization History Date of Tetanus Vaccine: Date of Influenza Vaccine: Fall 2015 Infectious Disease History: No Infectious Disease History: Denies: Hx Hepatitis, Hx Human Immunodeficiency Virus (HIV), Hx of Known/ Suspected MRSA, Traveled Outside the [place] in Last 30 Days - Family History Known Family History: Positive: None Negative: Cardiac Disease - Social History Occupation: Disabled Lives: Alone Alcohol Use: None Hx Substance Use: No Substance Use Type: Reports: None Hx Tobacco Use: Yes Smoking Status (MU): Former Smoker Type: Cigarettes Amount Used/How Often: 1 pack lasted 4 days Length of Time of Smoking/Using Tobacco: 12 years Have You Smoked in the Last Year: No Review of Systems Positive: Chest Pain Positive: Shortness Of Breath Negative: Vomiting, Nausea All Other Systems Reviewed And Are Negative: Yes Physical Exam - Summary Physical Exam Summary: Appearance: Well-appearing, Well-nourished, lying in bed comfortably Skin: Warm, dry, no obvious rash Eyes: sclera anicteric, no conjunctival pallor ENT: mucous membranes moist, pharynx appears normal Neck: Supple, nontender Respiratory: Clear to auscultation, no signs of respiratory distress Cardiovascular: Normal S1, S2. No murmurs. Normal distal pulses in tibial and radial bilaterally. No pericardial friction rub. Abdomen: Soft, nontender, normal active bowel sounds present Musculoskeletal: Normal, Strength/ROM Intact Neurological: A&Ox3, awake and alert, mentation is normal, speech is fluent and appropriate Psychiatric: affect is normal, does not appear anxious or depressed Triage Information Reviewed: Yes Vital Signs On Initial Exam: Initial Vitals Temp Pulse Resp BP Pulse Ox 97.9 F 95 20 158/104 100 08/31/18 16:38 08/31/18 16:38 08/31/18 16:38 08/31/18 16:38 08/31/18 16:38 Vital Signs Reviewed: Yes Diagnostics - Vital Signs Vital Signs Temp Pulse Resp BP Pulse Ox 08/31/18 18:39 98.0 F 100 16 171/92 100 08/31/18 16:38 97.9 F 95 20 158/104 100 - Laboratory Result Diagrams: 08/31/18 20:41 08/31/18 20:41 Lab Statement: Any lab studies that have been ordered have been reviewed, and results considered in the medical decision making process. - Radiology CXR Radiology Interpretation Completed By: ED Physician Summary of Radiographic Findings: NAD. Similar to prior film from February 2018. - EKG 1642 Cardiac Rate: NL - 91 bpm EKG Rhythm: Sinus Rhythm Summary of EKG Findings: NSR at 91 BPM, P waves, QRS complex, and T waves are within normal limits, T waves and intervals are normal, no ischemic changes. Re-Evaluation - Re-Evaluation 1 Re-Evaluation Time: 22:37 Change: Unchanged Comment: Discussing lab results and CXR with pt. Chest Pain Course/Dx - Course Course Of Treatment: Pt is a 33 y/o M presenting with L-sided CP and SOB onset 0300 this date and continuing throughout the day. PMHx: pericarditis. His first episode of pericarditis was 5 years ago and so severe that he was flown to [facility] and underwent surgery. Pt is on hemodialysis. Pt was started on an ABX for an open wound two days ago. EKG is unremarkable. CXR shows no acute disease and is similar to previous XR in February 2018. Will D/C, pt home with Dilaudid and Prednisone. - Diagnoses Provider Diagnoses: Chest pain Discharge - Sign-Out/Discharge Documenting (check all that apply): Patient Departure - D/C - Discharge Plan Condition: Good Disposition: HOME Prescriptions: HYDROmorphone TAB* [Dilaudid TAB*] 2 mg PO Q4H PRN #15 tab MDD 4 tabs PRN Reason: Pain - Chest predniSONE [Prednisone 20 MG TAB] 40 mg PO DAILY 5 Days #10 tablet Patient Education Materials: Chest Pain (ED) Referrals: David Orantes MD [Primary Care Provider] - 2 Days (if not improving) Additional Instructions: The cause of your pain is not entirely clear but given your history of pericarditis I have prescribed a short course of steroids and some analgesics for you. If your symptoms worsen or change we should see you back. - Billing Disposition and Condition Condition: GOOD Disposition: Home - Attestation Statements Document Initiated by Mariela: Yes Documenting Scribe: Kristyn Brown Provider For Whom Mariela is Documenting (Include Credential): Dr. Boogie Villalba MD Scribe Attestation: I, yeimy Almaguered for Dr. Boogie Villalba MD on 09/01/18 at 0112. Scribe Documentation Reviewed: Yes Provider Attestation: The documentation as recorded by the Kristyn banks accurately reflects the service I personally performed and the decisions made by me, Dr. Boogie Villalba MD Status of [place] Document: Viewed
[2018-08-31] MEDS ORDERED: Lidocaine 2% VISCOUS* 15 ML UDC PO ONE (20:26)
[2018-08-31] MEDS ORDERED: Al Hydrox/Mg Hydrox/Simet LIQ* 30 ML UDC PO ONE (20:26)
[2018-08-31] MEDS ORDERED: methylPREDNISolone 125 MG* 2 ML VIAL IV ONE (20:26)
[2018-08-31 21:10] LABS: ABS Basophils 0.1 10^3/ul (0-0.2); ABS Eosinophils 0.6 10^3/ul (0-0.6); ABS Lymphocytes 0.9 10^3/ul (1.0-4.8); ABS Monocytes 0.6 10^3/ul (0-0.8); ABS Neutrophils 3.4 10^3/ul (1.5-7.7); ABS Nucleated RBC 0 10^3/ul; Eosinophil % 10.7 %; Hematocrit 29 % (42-52); Hemoglobin 9.6 g/dl (14.0-18.0); Lymphocyte % 16.5 %; Mean Corpuscular HGB Conc 33 g/dl (31-36); Mean Corpuscular Hemoglobin 33 pg (27-31); Mean Corpuscular Volume 99 fL (80-94); Mean Platelet Volume 8.9 fL (7.4-10.4); Nucleated Red Blood Cells % 0.1; Platelet Count 233 10^3/ul (150-450); Red Blood Count 2.93 10^6/ul (4.00-5.40); Red Cell Distribution Width 20 % (10.5-15); White Blood Count 5.6 10^3/ul (3.5-10.8)
[2018-08-31 21:12] LABS: Albumin 4.1 g/dL (3.2-5.2); BUN/Creatinine Ratio 6.4 (8-20); Calcium 7.5 mg/dL (8.6-10.3); Potassium 4.8 mmol/L (3.5-5.0); Total Bilirubin 0.5 mg/dL (0.2-1.0); Total Protein 8.1 g/dL (6.4-8.9)
[2018-08-31 21:49] LABS: Erythrocyte Sed Rate 46 mm/Hr (0-14)
[2018-08-31] MEDS ORDERED: HYDROmorphone INJ* 2 MG/ML CARPUJECT SYRINGE IV SLOW PU ONE (22:39)
[2018-08-31] MEDS ORDERED: HYDROmorphone INJ1* 1 MG/ML SYRINGE ONE (22:49)
[2018-09-01] MEDS ORDERED: HYDROmorphone TAB* 4 MG PO ONE (00:34)
[2018-09-01 00:44] VITALS: BP 137/94
== END 2018-09-01 00:45 | disposition home or self-care (01) ==
LOC: ED 16:27
DX: R07.89 Other chest pain (principal); R06.02 Shortness of breath; I12.9 Hypertensive chronic kidney disease with stage 1 through stage 4 chronic kidney disease, or unspecified chronic kidney disease; N18.9 Chronic kidney disease, unspecified; Z94.0 Kidney transplant status; Z79.01 Long term (current) use of anticoagulants; Z88.0 Allergy status to penicillin; Z88.1 Allergy status to other antibiotic agents; Z91.030 Bee allergy status; Z91.041 Radiographic dye allergy status; Z87.891 Personal history of nicotine dependence
CPT/HCPCS: 36415; 71045; 80053; 84484; 85025; 85652; 93005; 96374; 96375; 99283; A9270-GY; J1170; J2930

== ENCOUNTER 2019-03-14 23:41 | Inpatient (IN) | payer MEDICARE, MEDICAID ==
[2019-03-15] MEDS ORDERED: fentaNYL* 50 MCG/ML 2 ML VIAL (100 MCG VIAL) IV SLOW PU ONE ×2 (00:09→05:08)
[2019-03-15] MEDS ORDERED: Metoclopramide IV* 5 MG/ML 2 ML VIAL IV SLOW PU ONE (00:09)
[2019-03-15] MEDS ORDERED: NS 0.9% 1000 ML** 1,000 ML IV SCH (00:15)
--- NOTE | 2019-03-15 00:23 | ED ---
Complex/Multi-Sys Presentation - HPI Summary HPI Summary: This patient is a 33 year old M presenting to [facility] accompanied by his fiance with a chief complaint of N/V since 11 hours ago. The patient rates the pain 8/ 10 in severity. Symptoms aggravated by nothing. Symptoms alleviated by nothing. Patient reports middle ABD pain that is non-radiating, skin diaphoresis, and BM earlier today. Patient denies blockage of his intestines. Patient states he had 2 surgeries for kidney transplant as well as an appendix surgery. He has dialysis grafts in his left arm and right thigh. - History Of Current Complaint Chief Complaint: EDAbdPain Time Seen by Provider: 03/14/19 23:54 Hx Obtained From: Patient, Other: - fiance Onset/Duration: Sudden Onset, Lasting Hours - began 11 hours ago, Still Present Timing: Constant, Hours - 11 Severity Currently: Severe Severity Initially: Severe Location: Pain At: - mid ABD pain, non-radiating Aggravating Factor(s): nothing Alleviating Factor(s): nothing Associated Signs And Symptoms: Positive: Nausea, Vomiting, Abdominal Pain - mid ABD pain, non-radiating, Diaphoresis - clamminess, Other - positive - last BM earlier today - Allergies/Home Medications Allergies/Adverse Reactions: Allergies Allergy/AdvReac Type Severity Reaction Status Date / Time bee venom protein (honey bee) Allergy Anaphylatic Verified 03/14/19 23:49 Shock cefazolin [From Ancef] Allergy Unknown Verified 03/14/19 23:49 Reaction Details cephalexin [From Keflex] Allergy Unknown Verified 03/14/19 23:49 Reaction Details Iodinated Contrast- Oral and Allergy Unknown Verified 03/14/19 23:49 IV Dye Reaction Details Penicillins Allergy Unknown Verified 03/14/19 23:49 Reaction Details vancomycin Allergy Unknown Verified 03/14/19 23:49 Reaction Details PMH/Surg Hx/FS Hx/Imm Hx Previously Healthy: No Endocrine/Hematology History: Reports: Hx Anticoagulant Therapy - HEPARIN DURING DIALYSIS, Hx Thyroid Disease - PARTIAL PARATHYROIDECTOMY Denies: Hx Diabetes Cardiovascular History: Reports: Hx Angina, Hx Hypertension, Other Cardiovascular Problems/Disorders - Pericarditis Denies: Hx Coronary Artery Disease, Hx Hypercholesterolemia, Hx Myocardial Infarction, Hx Pacemaker/ICD, Hx Valvular Heart Disease Respiratory History: Denies: Hx Asthma, Hx Chronic Obstructive Pulmonary Disease (COPD) History: Reports: Hx Chronic Renal Failure - hemodialysis 4x/week at home, Hx Renal Disease - dialysis es, th, sat Sensory History: Reports: Hx Contacts or Glasses Denies: Hx Hearing Aid Opthamlomology History: Reports: Hx Contacts or Glasses Neurological History: Denies: Hx Dementia, Hx Seizures Psychiatric History: Denies: Hx Substance Abuse - Surgical History Surgical History: Yes Surgery Procedure, Year, and Place: PARTIAL PARATHYROIDECTOMY, L ARM GRAFT, R LEG GRAFT, HEMODYALISIS CATHETER PLACEMENT, KIDNEY TRANSPLANT X2 - Immunization History Date of Tetanus Vaccine: Date of Influenza Vaccine: Fall 2015 Infectious Disease History: No Infectious Disease History: Denies: Hx Hepatitis, Hx Human Immunodeficiency Virus (HIV), Hx of Known/ Suspected MRSA, Traveled Outside the [place] in Last 30 Days - Family History Known Family History: Positive: None Negative: Cardiac Disease - Social History Alcohol Use: None Hx Substance Use: No Substance Use Type: Reports: None Hx Tobacco Use: Yes Smoking Status (MU): Former Smoker Type: Cigarettes Amount Used/How Often: 1 pack lasted 4 days Length of Time of Smoking/Using Tobacco: 12 years Have You Smoked in the Last Year: No Review of Systems Positive: Abdominal Pain - mid ABD pain, non-radiating, Vomiting, Nausea Genitourinary: Other - positive - last BM couple hours ago Skin: Other - positive - diaphoresis All Other Systems Reviewed And Are Negative: Yes Physical Exam - Summary Physical Exam Summary: VITAL SIGNS: Reviewed. GENERAL: Patient is a well-developed and nourished (MALE OR FEMALE) who is lying comfortable in the stretcher. Patient is not in any acute respiratory distress. HEAD AND FACE: No signs of trauma. No ecchymosis, hematomas or skull depressions. No sinus tenderness. EYES: PERRLA, EOMI x 2, No injected conjunctiva, no nystagmus. EARS: Hearing grossly intact. Ear canals and tympanic membranes are within normal limits. MOUTH: Oropharynx within normal limits. NECK: Supple, trachea is midline, no adenopathy, no JVD, no carotid bruit, no c- spine tenderness, neck with full ROM CHEST: Symmetric, no tenderness at palpation LUNGS: Clear to auscultation bilaterally. No wheezing or crackles. CVS: Regular rate and rhythm, S1 and S2 present, no murmurs or gallops appreciated. ABDOMEN: multiple healed scars, diffuse tenderness and distension and normal bowel sounds EXTREMITIES: Dialysis graft thrill of left upper arm and right leg. FROM in all major joints, no edema, no cyanosis or clubbing. NEURO: Alert and oriented x 3. No acute neurological deficits. Speech is normal and follows commands. SKIN: Dry and warm Triage Information Reviewed: Yes Vital Signs On Initial Exam: Initial Vitals Pulse BP Pulse Ox 105 173/107 100 03/14/19 23:48 03/14/19 23:48 03/14/19 23:48 Vital Signs Reviewed: Yes Diagnostics - Vital Signs Vital Signs Temp Pulse Resp BP Pulse Ox 03/15/19 00:00 103 92 03/14/19 23:50 108 100 03/14/19 23:49 98.3 F 105 16 173/107 100 03/14/19 23:48 105 173/107 100 - Laboratory Result Diagrams: 03/15/19 00:33 03/15/19 00:33 Lab Statement: Any lab studies that have been ordered have been reviewed, and results considered in the medical decision making process. - Radiology CXR Radiology Interpretation Completed By: ED Physician Summary of Radiographic Findings: no acute process ABD Radiology Interpretation Completed By: ED Physician Summary of Radiographic Findings: Mild airflow in liver suspicious of small bowel obstruction - CT Abd/Pel CT Interpretation Completed By: Radiologist Summary of CT Findings: IMPRESSION: 1. Partial small bowel obstruction in which the zone of transition appears to. be in the central abdomen. No bowel wall thickening or pneumatosis. The distal. small bowel is collapsed. No abdominal mass is identified. 2. Extensive venous collaterals involving the anterior abdominal wall. Prominent azygos and hemiazygos veins as well as prominent paraspinal veins. The inferior vena cava is diminished in size with calcification within the. common iliac veins bilaterally left greater than right as well as within the. inferior vena cava. This raises the possibility of a problem with the flow into. the inferior vena cava with its development of vascular collaterals. 3. Edema of the abdominal wall. 4. Abnormal thickening of the tissues in the periumbilical area. These findings were reviewed by Dr. Yip. Complex Multi-Symp Course/Dx Course Of Treatment: This patient is a 33 year old M presenting to [facility] accompanied by his fiance with a chief complaint of N/V since 11 hours ago. The patient rates the pain 8/10 in severity. Symptoms aggravated by nothing. Symptoms alleviated by nothing. Patient reports middle ABD pain that is non- radiating, skin diaphoresis, and BM earlier today. Patient denies blockage of his intestines. Patient states he had 2 surgeries for kidney transplant as well as an appendix surgery. He has dialysis grafts in his left arm and right thigh. Physical Exam findings show multiple healed scars, diffuse tenderness and distension in ABD, normal bowel sounds, and dialysis graft thrill of left upper arm and right leg. Lab results show RBC 3.71, Hgb 12.3, Hct 36, MCV 96, MCH 33 , RDW 18, Plt Count 145, absolute lymphs 0.3, potassium 5.3, chloride 92, anion gap 14, BUN 52, creatinine 9.83, BUN/creatinine ratio 5.3, glucose 127, c- reactive protein 13.81. Abd/Pel CT IMPRESSION: 1. Partial small bowel obstruction in which the zone of transition appears to. be in the central abdomen. No bowel wall thickening or pneumatosis. The distal. small bowel is collapsed. No abdominal mass is identified. 2. Extensive venous collaterals involving the anterior abdominal wall. Prominent azygos and hemiazygos veins as well as prominent paraspinal veins. The inferior vena cava is diminished in size with calcification within the. common iliac veins bilaterally left greater than right as well as within the. inferior vena cava. This raises the possibility of a problem with the flow into. the inferior vena cava with its development of vascular collaterals. 3. Edema of the abdominal wall. 4. Abnormal thickening of the tissues in the periumbilical area. CXR shows no acute process. ABD X-ray shows mild airflow in liver suspicious of small bowel obstruction. During the ED course, the pt was given fentanyl, Dilaudid, Reglan , Zofran, fluids. At 0517, Dr. Yip discussed pts case with Dr. Castro, surgery, who says to consult with Dr. Huang, hospitalist. Dr. Huang agrees to admit pt. Dx is small bowel obstruction. Pt is agreeable. - Diagnoses Provider Diagnoses: Small bowel obstruction - Physician Notifications Discussed Care Of Patient With: Mike Castro Time Discussed With Above Provider: 05:17 Instructed by Provider To: Other - Dr. Yip discussed pts case with Dr. Castro, surgery, who says to consult with Dr. Huang, hospitalist. Dr. Huang agrees to admit pt. Discharge - Sign-Out/Discharge Documenting (check all that apply): Patient Departure - admit Patient Received Moderate/Deep Sedation with Procedure: No - Discharge Plan Condition: Stable Disposition: ADMITTED TO [facility] Referrals: David Orantes MD [Primary Care Provider] - - Attestation Statements Document Initiated by Scribe: Yes Documenting Scribe: Aly Patino Provider For Whom Scribe is Documenting (Include Credential): Dr. Ronda Yip MD Scribe Attestation: Aly Storey, scribed for Dr. Ronda Yip MD on 03/15/19 at 0557. Status of Scribe Document: Ready
[2019-03-15 00:42] LABS: ABS Eosinophils 0.1 10^3/ul (0-0.6); ABS Lymphocytes 0.3 10^3/ul (1.0-4.8); ABS Monocytes 0.5 10^3/ul (0-0.8); ABS Neutrophils 6.6 10^3/ul (1.5-7.7); Eosinophil % 1.5 %; Hematocrit 36 % (42-52); Hemoglobin 12.3 g/dL (14.0-18.0); Mean Corpuscular HGB Conc 35 g/dL (31-36); Mean Corpuscular Hemoglobin 33 pg (27-31); Mean Corpuscular Volume 96 fL (80-94); Mean Platelet Volume 7.8 fL (7.4-10.4); Platelet Count 145 10^3/uL (150-450); Red Blood Count 3.71 10^6 /uL (4.18-5.48); Red Cell Distribution Width 18 % (10-15); White Blood Count 7.6 10^3/uL (3.5-10.8)
[2019-03-15 00:51] LABS: Activated Partial Thrombo Time 36.5 seconds (26.0-38.0); INR 1.09 (0.82-1.09)
[2019-03-15 00:59] LABS: Albumin/Globulin Ratio 1.3 (1-3); BUN/Creatinine Ratio 5.3 (8-20); C Reactive Protein 13.81 mg/L (<8.01); Calcium 8.9 mg/dL (8.6-10.3); EGFR African American 7.5 (>60); EGFR Non-African American 6.2 (>60); Globulin 3.9 g/dL (2-4); Magnesium 2.2 mg/dL (1.9-2.7); Total Protein 8.9 g/dL (6.4-8.9)
[2019-03-15 01:02] LABS: Potassium 5.3 mmol/L (3.5-5.0)
[2019-03-15] MEDS ORDERED: HYDROmorphone INJ1* 1 MG/ML SYRINGE IV SLOW PU ONE ×2 (02:12→15:27)
[2019-03-15] MEDS ORDERED: Ondansetron INJ* 2 MG/ML VIAL IV ONE (02:13)
[2019-03-15] MEDS ORDERED: Ondansetron INJ* 2 MG/ML VIAL ONE (02:16)
[2019-03-15] MEDS ORDERED: Morphine 4 MG/ML VIAL (1 ml) 4 MG/ML VIAL IV ONE (07:55)
[2019-03-15] MEDS ORDERED: Ondansetron INJ* 2 MG/ML VIAL IV PRN (08:28)
[2019-03-15] MEDS ORDERED: PROCHLORPERAZINE INJ 5 MG/ML 2 ML VIAL IV PRN (08:46)
[2019-03-15] MEDS: HYDROmorphone INJ1* 1 MG/ML SYRINGE IV SLOW PU PRN ×4 (10:03→21:09)
[2019-03-15] MEDS: NS 0.9% 1000 ML** 1,000 ML IV SCH ×2 (10:04→23:34)
--- NOTE | 2019-03-15 10:35 | HP ---
CC: Dr. Orantes * HISTORY AND PHYSICAL: DATE OF ADMISSION: 03/15/19 PRIMARY CARE PROVIDER: Dr. Orantes CHIEF COMPLAINT: Abdominal pain, nausea, and vomiting. HISTORY OF PRESENT ILLNESS: Mr. Peacokc is a 33-year-old male, who has a history of end-stage renal disease, who performs home hemodialysis, Wednesday, Wednesday, Wednesday, and Wednesday, who went to his usual clinic visit on the day prior to admission, feeling okay. He then had [employer] and developed abdominal pain that he described as stabbing in nature. He states the pain worsened at approximately 2 to 3 p.m. while performing hemodialysis. The patient tried to wait it out; however, at approximately 11 p.m. on the night prior to admission, he was unable to continue dealing with the pain and, therefore, presented to the emergency room. The patient states that the pain is continuing to be quite severe at this point. He has had nausea, but only 1 episode of vomiting and that is when EMS arrived to his house. 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 He reported that this was a normal bowel movement. He also states that he has been passing flatus from below. PAST MEDICAL HISTORY: 1. End-stage renal disease, on home hemodialysis, Wednesday, Wednesday, Wednesday, Wednesday. 2. Secondary hyperparathyroidism. 3. Anemia of chronic kidney disease. 4. Polycystic kidney disease. PAST SURGICAL HISTORY: 1. Left upper extremity fistula. 2. Right thigh fistula. 3. Renal transplant x2. 4. Appendectomy. 5. Parathyroidectomy. MEDICATIONS: 1. Epogen 10,000 units injected twice weekly. 2. Tums 1500 mg p.o. 4 times daily. 3. Calcitriol 1 mcg p.o. b.i.d. 4. Tylenol 975 mg p.o. q.6 hours p.r.n. pain. ALLERGIES: VANCOMYCIN, KEFLEX, ANCEF, WASPS, and IV CONTRAST. FAMILY HISTORY: Mom is living, she is 60, she is blind, but has no other medical problems. Dad in his early 40s of an [place]. SOCIAL HISTORY: The patient smoked for a few years, but has since quit. He does not drink alcohol. He is not working. His fiancee is with him in the emergency room. He has no kids. His healthcare proxy would be his fiancee, Donna. REVIEW OF SYSTEMS: A complete 11-system review of systems was obtained. Pertinent positives and negatives are as per HPI with the only addition being this patient is anuric. The rest of the review of systems is negative. PHYSICAL EXAMINATION GENERAL: The patient is a well-developed young male, seen sitting up in the stretcher, in no acute distress. VITAL SIGNS: Blood pressure 126/89, pulse 82, respirations 16, temp 98.8, O2 sat 93% on room air. HEENT: Pupils are equal and round. Extraocular muscles are intact. Oropharynx is clear and moist. The patient has an NG-tube present that is draining yellow-green liquid. There is no submandibular, cervical or supraclavicular adenopathy. PULMONARY: Lungs are clear, with few bibasilar crackles. CARDIAC: Normal S1 and S2. Regular rate and rhythm. I do not appreciate any murmurs. There is no lower extremity edema. ABDOMEN: Bowel sounds are hypoactive. Abdomen is distended. It is soft. Pain is not worse with palpation. MUSCULOSKELETAL: The patient moves all 4 extremities symmetrically. Skin is warm and dry. There are no rashes. NEUROLOGIC: Cranial nerves II through XII are grossly intact. Sensation is intact to light touch throughout. Strength is 5/5 and symmetric in both upper and lower extremities bilaterally. PSYCH: The patient is alert. He is oriented x3. Affect appears appropriate. DIAGNOSTIC STUDIES/LAB DATA: WBC 7.6, hemoglobin 12.3, hematocrit 36, platelets 145. INR is 1.09. Sodium 136, potassium 5.3, chloride 92, CO2 of 30 , BUN 52, creatinine 9.83, glucose 127, calcium 8.9, magnesium 2.2, bilirubin 1.0, AST 16, ALT 14, alk phos 68. CRP is 13.81, albumin 5.0, amylase 101, lipase is 44. Chest x-ray reveals no evidence for active cardiopulmonary disease. Abdominal x-ray: There is a nonspecific gas pattern suggestive of a partial small bowel obstruction or paralytic ileus. CT abdomen and pelvis: There is a partial small bowel obstruction in which the zone of transition appears to be in the central abdomen. No bowel wall thickening or pneumatosis is noted. The distal small bowel is collapsed. No abdominal mass is identified. There is extensive venous collaterals involving the anterior abdominal wall. There are prominent azygos and hemiazygos veins as well as prominent paraspinal veins. The inferior vena cava is diminished in size, with calcification within the common iliac veins bilaterally. This raises the possibility of a problem with the flow into the inferior vena cava with development of vascular collaterals. There is edema of the abdominal wall. There is abnormal thickening of the tissues of the periumbilical area. ASSESSMENT AND PLAN: Mr. Peacock is a 33-year-old male with end-stage renal disease, who was failed 2 renal transplants in the past, now on home hemodialysis 4 times weekly, and who also has anemia of chronic kidney disease, who presents to the emergency room with complaints of severe abdominal pain beginning at approximately 1 p.m. on the afternoon prior to admission. 1. Abdominal pain: Right now the leading diagnosis is partial small bowel obstruction based on symptoms and imaging studies. My one concern is that the patient continues to have severe pain out of proportion to exam. We will obtain a lactic acid. Mesenteric ischemia could be considered; however, seems unlikely. General Surgery has been consulted by the emergency room and will be seeing the patient later today. We will follow serial abdominal exams and monitor for changes in his symptoms. A repeat abdominal x-ray will be obtained tomorrow morning. 2. End-stage renal disease: The patient's fiancee has already contacted Dr. Orantes's nurse, who has alerted him to the fact that the patient is in the hospital. Dialysis will be performed, Wednesday, Wednesday, Wednesday, while in the hospital. 3. Anemia of chronic kidney disease: The patient's hemoglobin is essentially at baseline. 4. Mild hyperkalemia: The patient's potassium is slightly elevated at 5.3. We will need to pay close attention to this. 5. DVT prophylaxis: According to the Adult Thrombosis Prophylaxis Risk Factor Assessment Guide, the patient has a total risk factor score of 1, making him low risk. SCDs will be utilized as DVT prophylaxis. 6. Code status is full. TIME SPENT: Sixty-five minutes were spent admitting this patient. [id number]/[facility] #: [id number] MTDD
[2019-03-15] MEDS: Phenol 1.4% Spray* 177 ML BTL MT PRN ×2 (11:47→15:34)
--- NOTE | 2019-03-15 13:44 | CONS ---
CC: David Orantes MD * CONSULTATION NOTE: DATE OF CONSULT: 03/15/19 REASON FOR CONSULT: Partial small-bowel obstruction. HISTORY OF PRESENT ILLNESS: Mr. Peacock is a 33-year-old male with end-stage renal disease who has a history of appendectomy and 2 failed renal transplants. He has no prior history of bowel obstruction. He was seen in his hospital room with his fianceeDonna, present. The patient reports onset of a "stomachache" beginning 03/14/19 in the morning. He did not eat breakfast as he usually does not. He denied any nausea or vomiting at that point. For lunch, he had a foot-long [employer] sub with ham and cheese. Following that, he states the pain got worse. He completed his home hemodialysis at about 5 p.m., noted his pain was worse. At 11 p.m., his pain was so severe that he called EMS. He had 1 episode of nonbilious emesis when they arrived. He was transferred to [facility] Emergency Department , where he was evaluated. He reports no flatus today. He did have a soft normal bowel movement today. He denies blood in his stool or black tarry stool. In the emergency room, he completed a CT scan of abdomen and pelvis without contrast. The findings were a partial small-bowel obstruction with a zone of transition in the central abdomen with no evidence of bowel wall thickening or pneumatosis. He was noted also to have extensive venous collaterals involving his anterior abdominal wall. He had abdominal wall edema and abnormal thickening in the periumbilical tissues. Laboratory data revealed normal WBCs. The patient had a nasogastric tube placed in the emergency room and was admitted to the hospital service. He has been requiring intravenous pain medication and continues to report abdominal pain. It does not seem to be worse with movement. PAST MEDICAL HISTORY: Significant for end-stage renal disease, secondary hyperparathyroidism for which he had a parathyroidectomy, anemia, and polycystic kidney disease. PAST SURGICAL HISTORY: He has a history of the above-mentioned surgeries as well as multiple vascular access procedures for his hemodialysis. MEDICATIONS: 1. Epogen. 2. Tums. 3. Calcitriol. 4. Tylenol p.r.n. for pain. ALLERGIES: He reports IV CONTRAST may have caused an anaphylactic reaction in the past. However, he reports that at that time he was diagnosed with the reaction he was also receiving numerous antibiotics. He reports allergy to VANCOMYCIN, KEFLEX, ANCEF, AND WASPS as well. FAMILY HISTORY: Blindness in his mother. Father of heart attack. SOCIAL HISTORY: He is engaged. He is an ex-smoker, who quit for the last time last year, but had been smoking on and off since age 17. Denies alcohol or drug use. REVIEW OF SYSTEMS: He denies fevers, chills, weight loss. His fiancee reports extensive scarring of the abdominal wall which is in part contributed to by the patient's "self-inflicted picking at it." PHYSICAL EXAMINATION: He is 5 feet 2 inches, 149 pounds. He has a temperature of 98, blood pressure 124/79, pulse is 83, respirations 18, O2 sat 99% on room air. His lungs are clear to auscultation bilaterally without wheezes, rales, or rhonchi. Heart is regular, S1 and S2. Abdomen has multiple scars. There is periumbilical hypertrophic scar with excoriation of this area with dry blood, no evidence of active bleeding. Bowel sounds are present with some high- pitched bowel sounds. No rashes. The abdomen is diffusely tender across the upper abdomen with moderate tenderness, distention, and there is no peritoneal sign. The extremities are notable for multiple scars from hemodialysis access. DIAGNOSTIC STUDIES/LAB DATA: WBC 7.6, hemoglobin 12.3, platelets 145 with normal differential. Sodium normal 136, potassium 5.3, chloride 92, bicarb 30, BUN 52, creatinine 9.8, glucose 127. Transaminases are normal, alkaline phosphatase is 13.8, lipase and amylase are normal. His lactic acid was 0.5. Radiology images were reviewed. CT scan findings are as described above. IMPRESSION: This is a 33-year-old male with end-stage renal disease, polycystic kidneys, history of appendectomy now presenting with first episode partial small- bowel obstruction. The patient does not require any urgent or emergent surgical intervention. PLAN/RECOMMENDATIONS: Would continue bowel rest with NG-tube decompression and gentle hydration. We will check a chest x-ray to confirm placement of his nasogastric tube as it does not seem to be draining much. Serial abdominal exams and then x-rays will be performed. Should his condition worsen or not improve, CT scan with oral and IV contrast may be of benefit. He would need premedication prior to this due to his reported allergy. [id number]/[facility] #: [id number] ZORA
[2019-03-15] MEDS ORDERED: HYDROmorphone INJ1* 1 MG/ML SYRINGE IV ONE (18:03)
[2019-03-16] MEDS: HYDROmorphone INJ1* 1 MG/ML SYRINGE IV SLOW PU PRN ×6 (00:08→21:32)
--- NOTE | 2019-03-16 05:43 | PN ---
Progress Note - Progress Note Date of Service: 03/16/19 SOAP: Subjective: Pt seen and examined. Spoke to hospitalist; continued abdo pain. Pt unable to get CT w/ IV contrast. Chart reviewed including labs and radiology. Currently, pt awake, comfortable. Continued abdo pain requiring regular Dilaudid dosing. Some flatus about 2 hours ago. Objective: Temp Pulse Resp BP Pulse Ox 97.6 F 98 18 123/49 95 03/16/19 03:08 03/16/19 03:08 03/16/19 03:42 03/16/19 03:08 03/16/19 03:08 Intake & Output 03/15/19 03/15/19 03/16/19 14:59 22:59 06:59 Intake Total 384 990 Output Total 053 891 8702 Balance -116 -820 -10 Weight 149 lb NGT: 1000cc in last shift a and o x3, nad abdo: tender on palpation, no rebound or guarding. Tense scar tissue at lower abdomen. No redness labs noted Assessment: pSBO. Plan: pain control OOB serial exams. No surgical intervention at this time
[2019-03-16 06:52] LABS: Sodium 145 mmol/L (135-145)
[2019-03-16 06:58] LABS: BUN/Creatinine Ratio 6.8 (8-20); Blood Urea Nitrogen 34 mg/dL (6-24); EGFR African American 16.4 (>60); EGFR Non-African American 13.5 (>60)
[2019-03-16 07:01] LABS: Anion Gap 8 mmol/L (2-11); CO2 Carbon Dioxide 9 mmol/L (22-32); Calcium < 4.0 mg/dL (8.6-10.3); Chloride 128 mmol/L (101-111); Potassium 2.6 mmol/L (3.5-5.0)
[2019-03-16 07:05] LABS: Glucose 34 mg/dL (70-100)
[2019-03-16] MEDS ORDERED: Dextrose 50% VIAL 50 ml IV ONE (08:00)
[2019-03-16] MEDS: D5NS 0.9% 1000 ML BAG* 1,000 ML IV SCH (08:45)
--- NOTE | 2019-03-16 09:37 | PN ---
Subjective Date of Service: 03/16/19 Interval History: Pt feels "unchanged", does not appear to be in discomfort, ambulating around the room , but grades pain at 8/10. Has had daily loose BM's since admission. NG output 500 ml of dark, black fluid in the past 12 H. Objective Active Medications: Hydromorphone HCl (Dilaudid Inj1s*) 2 mg IV SLOW PU Q3HR PRN PRN Reason: severe pain Last Admin: 03/16/19 08:23 Dose: 2 mg Dextrose/Sodium Chloride (D5ns 0.9% 1000 Ml Bag*) 1,000 mls @ 75 mls/hr IV PER RATE MERARI Last Admin: 03/16/19 08:45 Dose: 75 mls/hr Ondansetron HCl (Zofran Inj*) 4 mg IV Q6H PRN PRN Reason: NAUSEA Pantoprazole Sodium (Protonix Iv*) 40 mg IV Q12H MERARI Phenol/Menthol (Chloroseptic Throat [place]*) 1 spray MT Q4H PRN PRN Reason: SORE THROAT Last Admin: 03/15/19 15:34 Dose: 1 spray Prochlorperazine Edisylate (Compazine Inj*) 10 mg IV Q6H PRN PRN Reason: NAUSEA/VOMITING Vital Signs - 8 hr 03/16/19 03/16/19 03/16/19 03:08 03:42 04:42 Temperature 97.6 F Pulse Rate 98 Respiratory 16 18 18 Rate Blood Pressure 123/49 (mmHg) O2 Sat by Pulse 95 Oximetry 03/16/19 03/16/19 07:05 08:23 Temperature 98.5 F Pulse Rate 103 Respiratory 18 18 Rate Blood Pressure 130/75 (mmHg) O2 Sat by Pulse 95 Oximetry Oxygen Devices in Use Now: None Appearance: 33 yo m in nAD, aAOx3 Eyes: No Scleral Icterus, PERRLA Ears/Nose/Mouth/Throat: NL Teeth, Lips, Gums, Mucous Membranes Moist Neck: NL Appearance and Movements; NL JVP, Trachea Midline Respiratory: Symmetrical Chest Expansion and Respiratory Effort, Clear to Auscultation Cardiovascular: NL Sounds; No Murmurs; No JVD, RRR Abdominal: - - distended,tneder in epigastrium, no rebound, no guarding, BS+, with multiple post op scars and one centrally localized wound covered with eschar (old, post op as per pt), muliple dilated superficial abd blood vessels noted Lymphatic: No Cervical Adenopathy Skin: No Nodules or Sclerosis, - - mid abd chronic wound in the umbilicus area covered with eschar Neurological: Alert and Oriented x 3, NL Muscle Strength and Tone Result Diagrams: 03/15/19 00:33 03/16/19 06:21 Assess/Plan/Problems-Billing Assessment: 33 yo M with ESRD on home HD, h/o peritoneal dialysis and renal transplants(failedx2), PCKD, appy, secondary hypeparathyroidism (s/o parathyroidectomy) presents with SBO - Patient Problems (1) SBO (small bowel obstruction) Comment: managed medically so far Appreciate surgery assistance. CT ordered today by DR. Alvarez( due to contrast allergy will be pretreated with steroiods) due to black NG secretions will get gastrocult and start IV Protonix BID (2) Hypoglycemia Comment: noted this aM, asymptomatic, start D5NS, fingersticks Q6H (3) ESRD (end stage renal disease) on dialysis Comment: Continue home hemodialysis when in hosp. Today is HD day (4) Blood chemistry abnormality Comment: including hypocalcemia, bicarb of 9, severe hypoglycemia and hypokalemia ? lab draw error. D/w nephrology-labs will be re-drawn during HD. (5) DVT prophylaxis Comment: ambulation Status and Disposition: Inpatient
[2019-03-16] MEDS ORDERED: Pantoprazole IV* 40 MG IV SCH (10:00)
[2019-03-16 10:32] LABS: ABS Eosinophils 0.1 10^3/ul (0-0.6); ABS Lymphocytes 0.4 10^3/ul (1.0-4.8); ABS Monocytes 0.6 10^3/ul (0-0.8); ABS Neutrophils 3.7 10^3/ul (1.5-7.7); Eosinophil % 2.2 %; Hematocrit 33 % (42-52); Hemoglobin 11.2 g/dL (14.0-18.0); Lymphocyte % 7.3 %; Mean Corpuscular HGB Conc 34 g/dL (31-36); Mean Corpuscular Hemoglobin 33 pg (27-31); Mean Corpuscular Volume 97 fL (80-94); Mean Platelet Volume 8.8 fL (7.4-10.4); Nucleated Red Blood Cells % 0.1; Platelet Count 127 10^3/uL (150-450); Red Blood Count 3.38 10^6 /uL (4.18-5.48); Red Cell Distribution Width 18 % (10-15); White Blood Count 4.8 10^3/uL (3.5-10.8)
[2019-03-16 10:44] LABS: Calcium 7.6 mg/dL (8.6-10.3); EGFR African American 5.5 (>60); EGFR Non-African American 4.6 (>60)
[2019-03-16 10:51] LABS: Potassium 5.7 mmol/L (3.5-5.0)
[2019-03-16] MEDS ORDERED: Heparin DIALYSIS ONLY(*) 1,000 UNITS/ML VIAL DIALYSIS ONE (11:00)
[2019-03-16 11:43] LABS: Hepatitis B Surface Antigen Negative (Negative)
[2019-03-16 12:01] LABS: Hepatitis B Surface Ab Immune (Immune)
[2019-03-16] MEDS: Phenol 1.4% Spray* 177 ML BTL MT PRN ×2 (13:31→21:32)
[2019-03-16] MEDS: Pantoprazole IV* 40 MG IV SCH ×2 (13:31→21:28)
--- NOTE | 2019-03-16 21:03 | PN ---
DIALYSIS NOTE: DATE OF DIALYSIS: 03/16/19 - ROOM #332 SUBJECTIVE: The patient seen and examined during dialysis. HD orders discussed with nurse and the patient is tolerating the session well. Vitals and labs have been reviewed. PHYSICAL EXAM: HEENT: NC/AT. NG tube in place, had about 1 L output yesterday. Heart: S1, S2 present. Regular rate and rhythm. Lungs: Decreased breath sounds bilaterally. Abdomen: Noted to be distended. Hypoactive bowel sounds. No rebound. No guarding. Extremities: Noted to have no edema. Neuro : Alert. ASSESSMENT AND PLAN: 1. End-stage renal disease, on hemodialysis secondary to polycystic kidney disease. The patient is on home dialysis 4 times a week. HD orders discussed with nurse and tolerating his dialysis session well. The patient's potassium was initially noted to be 2.6, but on repeat came up to 5.7. Was initially started off on a 3 K bath and transitioned to a 2 K bath. We will monitor labs closely again tomorrow. 2. Metabolic acidosis. Dialysis today. The patient can lose a lot of potassium and bicarb through NG secretions, but so much difference between the labs makes lab draw error a possibility. 3. Small bowel obstruction per the medical/surgical team. [id number]/CPS #: [id number] [facility] SYSTEMJennifer
[2019-03-17] MEDS: HYDROmorphone INJ1* 1 MG/ML SYRINGE IV SLOW PU PRN ×6 (01:53→22:48)
[2019-03-17] MEDS: D5NS 0.9% 1000 ML BAG* 1,000 ML IV SCH (01:54)
[2019-03-17 06:22] LABS: ABS Eosinophils 0.1 10^3/ul (0-0.6); ABS Lymphocytes 0.4 10^3/ul (1.0-4.8); Eosinophil % 2.3 %; Hematocrit 33 % (42-52); Hemoglobin 10.7 g/dL (14.0-18.0); Lymphocyte % 5.7 %; Mean Corpuscular HGB Conc 33 g/dL (31-36); Mean Corpuscular Hemoglobin 32 pg (27-31); Mean Corpuscular Volume 99 fL (80-94); Mean Platelet Volume 8.8 fL (7.4-10.4); Platelet Count 123 10^3/uL (150-450); Red Blood Count 3.34 10^6 /uL (4.18-5.48); Red Cell Distribution Width 18 % (10-15); White Blood Count 6.6 10^3/uL (3.5-10.8)
[2019-03-17 06:44] LABS: BUN/Creatinine Ratio 4.2 (8-20); Calcium 8.1 mg/dL (8.6-10.3); EGFR African American 8.5 (>60); Potassium 4.7 mmol/L (3.5-5.0)
[2019-03-17] MEDS: Pantoprazole IV* 40 MG IV SCH ×2 (09:57→21:59)
[2019-03-17] MEDS: Sodium Chloride Conc 23.4%* 77 MEQ in D10W 1000 ML BAG* 1,000 ML IV SCH (09:57)
--- NOTE | 2019-03-17 11:44 | PN ---
Subjective Date of Service: 03/17/19 Interval History: Pt pulled NG at night and refused to have it replaced. Pt felt that NG was "sucking on to something" and feels better without it. C/o crampy abd pain in upper quadrants that is slightly improved from prior. Denies vomiting, but had occasional nausea. Liquid daily BM-light brown-noted. Objective Active Medications: Hydromorphone HCl (Dilaudid Inj1s*) 2 mg IV SLOW PU Q3HR PRN PRN Reason: severe pain Last Admin: 03/17/19 07:36 Dose: 2 mg Sodium Chloride 77 meq/ (Dextrose) 1,019.25 mls @ 50 mls/hr IV Q20H MERARI Last Admin: 03/17/19 09:57 Dose: 50 mls/hr Ondansetron HCl (Zofran Inj*) 4 mg IV Q6H PRN PRN Reason: NAUSEA Last Admin: 03/17/19 07:36 Dose: 4 mg Pantoprazole Sodium (Protonix Iv*) 40 mg IV Q12H MERARI Last Admin: 03/17/19 09:57 Dose: 40 mg Phenol/Menthol (Chloroseptic Throat [place]*) 1 spray MT Q4H PRN PRN Reason: SORE THROAT Last Admin: 03/16/19 21:32 Dose: 1 spray Prochlorperazine Edisylate (Compazine Inj*) 10 mg IV Q6H PRN PRN Reason: NAUSEA/VOMITING Vital Signs - 8 hr 03/17/19 03/17/19 03/17/19 07:00 07:36 07:53 Temperature Pulse Rate Respiratory 17 16 16 Rate Blood Pressure 131/87 (mmHg) O2 Sat by Pulse 100 Oximetry 03/17/19 03/17/19 09:57 11:00 Temperature 98.9 F Pulse Rate 93 Respiratory 16 16 Rate Blood Pressure 133/65 (mmHg) O2 Sat by Pulse 95 Oximetry Oxygen Devices in Use Now: None Appearance: 33 yo M in nAD,AAOx3 Eyes: No Scleral Icterus, PERRLA Ears/Nose/Mouth/Throat: NL Teeth, Lips, Gums, Mucous Membranes Moist Neck: NL Appearance and Movements; NL JVP, Trachea Midline Respiratory: Symmetrical Chest Expansion and Respiratory Effort, Clear to Auscultation Cardiovascular: NL Sounds; No Murmurs; No JVD, RRR Abdominal: - - tender mildly in b/l UQ's, no rebound, no guarding. Multiple post op scars noted with mid abdomen chronic wound covered with eschar Lymphatic: No Cervical Adenopathy Extremities: No Clubbing, Cyanosis, - - +1 pitting pedal edema Skin: No Nodules or Sclerosis Neurological: Alert and Oriented x 3, NL Muscle Strength and Tone Result Diagrams: 03/17/19 05:17 03/17/19 05:17 Microbiology and Other Data: Microbiology 03/16/19 11:45 Gastric Occult Blood - Final Gastric Fluid Assess/Plan/Problems-Billing Assessment: 33 yo M with ESRD on home HD, h/o peritoneal dialysis and renal transplants(failedx2), PCKD, appy, secondary hypeparathyroidism (s/o parathyroidectomy) presents with SBO - Patient Problems (1) SBO (small bowel obstruction) Comment: managed medically so far Appreciate surgery assistance. CT could not be perormed with contrast dut o h/o anaphylaxis to it. NG out last night-pt refuses to have it replaced will start sips of clears. (2) Hypoglycemia Comment: still low BG. Need to watch for volume due to ESRD and will switch from D5 to D10, asymptomatic, fingersticks Q6H (3) ESRD (end stage renal disease) on dialysis Comment: Continue home hemodialysis when in hosp. will get another HD today (4) Blood chemistry abnormality Comment: lab draw error noted on 03/16/19. (5) DVT prophylaxis Comment: ambulation (6) GI bleed Comment: gastrocult on 03/16/19 Heme + -suspect more due to mechanical injury from NG than ulcers or gastritis. Hb is slightly lower today, but pt is also on positive fluid balance and pre dialysis(during HD on 03/16/19 no fluid was taken off) Will cont Protonix IV BD and to monitor Hb Status and Disposition: Inpatient
--- NOTE | 2019-03-17 13:36 | PN ---
Progress Note - Progress Note Date of Service: 03/17/19 SOAP: Subjective: Patient seen and examined. Events overnight noted. Patient's NG tube became dislodged and patient refused additional placement. Patient continues to pass flatus. He has had a small bowel movement. He continues to have pain especially when he's pushing to have bowel movements. No nausea or vomiting. Appetite is improving. Patient underwent hemodialysis recently and no fluid was taken off. Patient states he'll be going again today Objective: Temp Pulse Resp BP Pulse Ox 98.9 F 93 16 133/65 95 03/17/19 11:00 03/17/19 11:00 03/17/19 11:47 03/17/19 11:00 03/17/19 11:00 alert and oriented 3, in no apparent distress. Standing abdomen: Soft at the upper abdomen with tenderness on deep palpation. Scar tissue inferiorly that is nontender. Negative rebound. Laboratory Last Values WBC 6.6 10^3/uL (3.5-10.8) 03/17/19 05:17 RBC 3.34 10^6 /uL (4.18-5.48) L 03/17/19 05:17 Hgb 10.7 g/dL (14.0-18.0) L 03/17/19 05:17 Hct 33 % (42-52) L 03/17/19 05:17 MCV 99 fL (80-94) H 03/17/19 05:17 MCH 32 pg (27-31) H 03/17/19 05:17 MCHC 33 g/dL (31-36) 03/17/19 05:17 RDW 18 % (10-15) H 03/17/19 05:17 Plt Count 123 10^3/uL (150-450) L 03/17/19 05:17 MPV 8.8 fL (7.4-10.4) 03/17/19 05:17 Neut % (Auto) 76.6 % 03/17/19 05:17 Lymph % (Auto) 5.7 % 03/17/19 05:17 [place] % (Auto) 14.9 % 03/17/19 05:17 Eos % (Auto) 2.3 % 03/17/19 05:17 Baso % (Auto) 0.5 % 03/17/19 05:17 Absolute Neuts (auto) 5.0 10^3/ul (1.5-7.7) 03/17/19 05:17 Absolute Lymphs (auto) 0.4 10^3/ul (1.0-4.8) L 03/17/19 05:17 Absolute Monos (auto) 1.0 10^3/ul (0-0.8) H 03/17/19 05:17 Absolute Eos (auto) 0.1 10^3/ul (0-0.6) 03/17/19 05:17 Absolute Basos (auto) 0.0 10^3/ul (0-0.2) 03/17/19 05:17 Absolute Nucleated RBC 0.0 10^3/ul 03/17/19 05:17 Nucleated RBC % 0.0 03/17/19 05:17 INR (Anticoag Therapy) 1.09 (0.82-1.09) 03/15/19 00:33 APTT 36.5 seconds (26.0-38.0) 03/15/19 00:33 Sodium 138 mmol/L (135-145) 03/17/19 05:17 Potassium 4.7 mmol/L (3.5-5.0) 03/17/19 05:17 Chloride 95 mmol/L (101-111) L 03/17/19 05:17 Carbon Dioxide 28 mmol/L (22-32) 03/17/19 05:17 Anion Gap 15 mmol/L (2-11) H 03/17/19 05:17 BUN 37 mg/dL (6-24) H 03/17/19 05:17 Creatinine 8.78 mg/dL (0.67-1.17) H 03/17/19 05:17 Est GFR ( Amer) 8.5 (>60) 03/17/19 05:17 Est GFR (Non-Af Amer) 7.0 (>60) 03/17/19 05:17 BUN/Creatinine Ratio 4.2 (8-20) L 03/17/19 05:17 Glucose 83 mg/dL (70-100) 03/17/19 05:17 POC Glucose (mg/dL) 67 mg/dL (70-100) L 03/17/19 01:46 Lactic Acid 1.2 mmol/L (0.5-2.0) 03/15/19 19:16 Calcium 8.1 mg/dL (8.6-10.3) L 03/17/19 05:17 Magnesium 2.2 mg/dL (1.9-2.7) 03/15/19 00:33 Total Bilirubin 1.00 mg/dL (0.2-1.0) 03/15/19 00:33 AST 16 U/L (13-39) 03/15/19 00:33 ALT 14 U/L (7-52) 03/15/19 00:33 Alkaline Phosphatase 68 U/L (34-104) 03/15/19 00:33 C-Reactive Protein 13.81 mg/L (<8.01) H 03/15/19 00:33 Total Protein 8.9 g/dL (6.4-8.9) 03/15/19 00:33 Albumin 5.0 g/dL (3.2-5.2) 03/15/19 00:33 Globulin 3.9 g/dL (2-4) 03/15/19 00:33 Albumin/Globulin Ratio 1.3 (1-3) 03/15/19 00:33 Amylase 101 U/L (29-103) 03/15/19 00:33 Lipase 44 U/L (11.0-82.0) 03/15/19 00:33 Hepatitis B Antibody Immune (Immune) 03/16/19 09:40 Hep Bs Antigen Negative (Negative) 03/16/19 09:40 Blood Type B Positive 03/15/19 00:33 Antibody Screen Negative 03/15/19 00:33 Assessment: Partial small bowel obstruction improving Plan: may start on sips of clears at this time. Advance diet slowly. Decreased pain medications. Consider CT scan noncontrast if pain returns [facility] to cover me until March 27
[2019-03-17] MEDS ORDERED: Heparin DIALYSIS ONLY(*) 1,000 UNITS/ML VIAL DIALYSIS ONE (14:10)
--- NOTE | 2019-03-17 20:57 | PN ---
DIALYSIS NOTE: DATE OF VISIT AND DIALYSIS: 03/17/19 SERVICE: [facility] nephrology. SUBJECTIVE: The patient seen during dialysis. Denies any complaints and tolerating procedure well. HD orders discussed with nurse. PHYSICAL EXAM: HEENT: NCAT. Heart: S1, S2 present. Regular rate and rhythm. Lungs: Decreased br eath sounds bilaterally. Abdomen: Distended. Hypoactive bowel sounds. No rebound. No guarding. Extremities: Noted to have bilateral edema. Neuro: Alert and oriented. ASSESSMENT AND PLAN: End-stage renal disease, on hemodialysis treatment 3 times a week. HD orders d iscussed with nurse and the patient tolerating the procedure well. We will plan for a UF of 2 L toda y as the patient noted to be increasingly puffy and is 2.9 kilos above his dry weight. We will targe t a UF of 2 L. The patient is getting IV fluids and discussed this with the medical team. It appear s that he is getting D10 glucose infusion as the patient's blood glucose has been dropping. In light of this, as he needs this and his n.p.o. will continue. He is not short of breath, but we will targ et volume removal with hemodialysis. Would be cautious with volume over the weekend. [id number]/[facility] #: [id number]
[2019-03-18] MEDS: HYDROmorphone INJ1* 1 MG/ML SYRINGE IV SLOW PU PRN ×6 (02:43→21:36)
--- NOTE | 2019-03-18 08:47 | PN ---
Progress Note - Progress Note Date of Service: 03/18/19 Note: Surgery Progress Note S: Patient tolerated sips of clears yesterday without difficulty. No nausea or emesis. Had flatus multiple times yesterday. Had BM yesterday and today. This morning he said his BM was large and very hard, containing kernals of corn. He normally has soft BM. He does not complain of pain at this time. O: Vital Signs: Temp Pulse Resp BP Pulse Ox 98.3 F 92 16 129/74 97 03/18/19 07:31 03/18/19 07:31 03/18/19 08:28 03/18/19 07:31 03/18/19 07:31 Laboratory Last Values WBC 6.6 10^3/uL (3.5-10.8) 03/17/19 05:17 RBC 3.34 10^6 /uL (4.18-5.48) L 03/17/19 05:17 Hgb 10.7 g/dL (14.0-18.0) L 03/17/19 05:17 Hct 33 % (42-52) L 03/17/19 05:17 MCV 99 fL (80-94) H 03/17/19 05:17 MCH 32 pg (27-31) H 03/17/19 05:17 MCHC 33 g/dL (31-36) 03/17/19 05:17 RDW 18 % (10-15) H 03/17/19 05:17 Plt Count 123 10^3/uL (150-450) L 03/17/19 05:17 MPV 8.8 fL (7.4-10.4) 03/17/19 05:17 Neut % (Auto) 76.6 % 03/17/19 05:17 Lymph % (Auto) 5.7 % 03/17/19 05:17 [place] % (Auto) 14.9 % 03/17/19 05:17 Eos % (Auto) 2.3 % 03/17/19 05:17 Baso % (Auto) 0.5 % 03/17/19 05:17 Absolute Neuts (auto) 5.0 10^3/ul (1.5-7.7) 03/17/19 05:17 Absolute Lymphs (auto) 0.4 10^3/ul (1.0-4.8) L 03/17/19 05:17 Absolute Monos (auto) 1.0 10^3/ul (0-0.8) H 03/17/19 05:17 Absolute Eos (auto) 0.1 10^3/ul (0-0.6) 03/17/19 05:17 Absolute Basos (auto) 0.0 10^3/ul (0-0.2) 03/17/19 05:17 Absolute Nucleated RBC 0.0 10^3/ul 03/17/19 05:17 Nucleated RBC % 0.0 03/17/19 05:17 INR (Anticoag Therapy) 1.09 (0.82-1.09) 03/15/19 00:33 APTT 36.5 seconds (26.0-38.0) 03/15/19 00:33 Sodium 138 mmol/L (135-145) 03/17/19 05:17 Potassium 4.7 mmol/L (3.5-5.0) 03/17/19 05:17 Chloride 95 mmol/L (101-111) L 03/17/19 05:17 Carbon Dioxide 28 mmol/L (22-32) 03/17/19 05:17 Anion Gap 15 mmol/L (2-11) H 03/17/19 05:17 BUN 37 mg/dL (6-24) H 03/17/19 05:17 Creatinine 8.78 mg/dL (0.67-1.17) H 03/17/19 05:17 Est GFR ( Amer) 8.5 (>60) 03/17/19 05:17 Est GFR (Non-Af Amer) 7.0 (>60) 03/17/19 05:17 BUN/Creatinine Ratio 4.2 (8-20) L 03/17/19 05:17 Glucose 83 mg/dL (70-100) 03/17/19 05:17 POC Glucose (mg/dL) 90 mg/dL (70-100) 03/18/19 02:38 Lactic Acid 1.2 mmol/L (0.5-2.0) 03/15/19 19:16 Calcium 8.1 mg/dL (8.6-10.3) L 03/17/19 05:17 Magnesium 2.2 mg/dL (1.9-2.7) 03/15/19 00:33 Total Bilirubin 1.00 mg/dL (0.2-1.0) 03/15/19 00:33 AST 16 U/L (13-39) 03/15/19 00:33 ALT 14 U/L (7-52) 03/15/19 00:33 Alkaline Phosphatase 68 U/L (34-104) 03/15/19 00:33 C-Reactive Protein 13.81 mg/L (<8.01) H 03/15/19 00:33 Total Protein 8.9 g/dL (6.4-8.9) 03/15/19 00:33 Albumin 5.0 g/dL (3.2-5.2) 03/15/19 00:33 Globulin 3.9 g/dL (2-4) 03/15/19 00:33 Albumin/Globulin Ratio 1.3 (1-3) 03/15/19 00:33 Amylase 101 U/L (29-103) 03/15/19 00:33 Lipase 44 U/L (11.0-82.0) 03/15/19 00:33 Hepatitis B Antibody Immune (Immune) 03/16/19 09:40 Hep Bs Antigen Negative (Negative) 03/16/19 09:40 Blood Type B Positive 03/15/19 00:33 Antibody Screen Negative 03/15/19 00:33 Intake & Output 03/17/19 03/18/19 03/18/19 22:59 06:59 14:59 Intake Total 120 759 Output Total 0 Balance 120 759 Intake: IV Fluids 599 D10 1/2 NS 599 Oral 120 160 Output: Urine 0 Other: Estimated Void Medium Date of Last Bowel 03/18/2019 Movement # Bowel Movements 0 Estimated Stool Amount Small # Voids 2 Physical exam: General- ambulating, appears very comfortable and in no distress Abdomen- minimally distended, soft, chronic wound at midline A/P: 33M with ESRD, SBO, resolving. - Recommend advancing diet to CLD today.
[2019-03-18] MEDS: Pantoprazole IV* 40 MG IV SCH ×2 (10:20→21:36)
[2019-03-18 11:46] LABS: Hematocrit 31 % (42-52); Hemoglobin 10.4 g/dL (14.0-18.0); Mean Corpuscular HGB Conc 33 g/dL (31-36); Mean Corpuscular Hemoglobin 32 pg (27-31); Mean Corpuscular Volume 98 fL (80-94); Red Blood Count 3.22 10^6 /uL (4.18-5.48); Red Cell Distribution Width 17 % (10-15)
[2019-03-18 12:14] LABS: ABS Eosinophils 0.3 10^3/ul (0-0.6); ABS Lymphocytes 0.5 10^3/ul (1.0-4.8); ABS Monocytes 0.8 10^3/ul (0-0.8); ABS Neutrophils 4.3 10^3/ul (1.5-7.7); Eosinophil % 4.5 %; Lymphocyte % 9.1 %; Mean Platelet Volume 8.5 fL (7.4-10.4); Nucleated Red Blood Cells % 0.1; Platelet Count 41 10^3/uL (150-450); White Blood Count 5.9 10^3/uL (3.5-10.8)
[2019-03-18] MEDS: Sodium Chloride Conc 23.4%* 77 MEQ in D10W 1000 ML BAG* 1,000 ML IV SCH (12:32)
--- NOTE | 2019-03-18 15:28 | PN ---
Subjective Date of Service: 03/18/19 Interval History: Had a BM this am.Passing gas Objective Active Medications: Hydromorphone HCl (Dilaudid Inj1s*) 2 mg IV SLOW PU Q3HR PRN PRN Reason: severe pain Last Admin: 03/18/19 15:06 Dose: 2 mg Ondansetron HCl (Zofran Inj*) 4 mg IV Q6H PRN PRN Reason: NAUSEA Last Admin: 03/17/19 07:36 Dose: 4 mg Pantoprazole Sodium (Protonix Iv*) 40 mg IV Q12H MERARI Last Admin: 03/18/19 10:20 Dose: 40 mg Phenol/Menthol (Chloroseptic Throat [place]*) 1 spray MT Q4H PRN PRN Reason: SORE THROAT Last Admin: 03/16/19 21:32 Dose: 1 spray Prochlorperazine Edisylate (Compazine Inj*) 10 mg IV Q6H PRN PRN Reason: NAUSEA/VOMITING Vital Signs - 8 hr 03/18/19 03/18/19 03/18/19 07:31 08:28 08:30 Temperature 98.3 F Pulse Rate 92 Respiratory 18 16 16 Rate Blood Pressure 129/74 (mmHg) O2 Sat by Pulse 97 Oximetry 03/18/19 03/18/19 03/18/19 09:28 11:56 12:02 Temperature 98.7 F Pulse Rate 95 Respiratory 16 18 16 Rate Blood Pressure 122/68 (mmHg) O2 Sat by Pulse 93 Oximetry 03/18/19 03/18/19 03/18/19 13:02 15:06 15:20 Temperature 98.3 F Pulse Rate 85 Respiratory 16 16 16 Rate Blood Pressure 114/59 (mmHg) O2 Sat by Pulse 99 Oximetry Oxygen Devices in Use Now: None Eyes: No Scleral Icterus Ears/Nose/Mouth/Throat: NL Teeth, Lips, Gums Neck: NL Appearance and Movements; NL JVP Respiratory: Symmetrical Chest Expansion and Respiratory Effort, Clear to Auscultation Cardiovascular: NL Sounds; No Murmurs; No JVD Abdominal: - - hypoactive bowel sounds Extremities: - - 2+ Edema Result Diagrams: 03/18/19 11:00 03/17/19 05:17 Microbiology and Other Data: Microbiology 03/16/19 11:45 Gastric Occult Blood - Final Gastric Fluid Assess/Plan/Problems-Billing Assessment: 33 yo M with ESRD on home HD, h/o peritoneal dialysis and renal transplants(failedx2), PCKD, appy, secondary hypeparathyroidism (s/o parathyroidectomy) presents with SBO - Patient Problems (1) SBO (small bowel obstruction) Current Visit: Yes Status: Acute Code(s): K56.609 - UNSP INTESTNL OBST, UNSP TO PARTIAL VERSUS COMPLETE OBST SNOMED Code(s): 653213607 Comment: managed medically so far Appreciate surgery assistance. CT could not be perormed with contrast dut o h/o anaphylaxis to it. tolerated sips of clears had bm this am and passing gas appreciate surgery input will advance to clear liquid diet today (2) Blood chemistry abnormality Current Visit: Yes Status: Acute Code(s): R79.9 - ABNORMAL FINDING OF BLOOD CHEMISTRY, UNSPECIFIED SNOMED Code(s): 913896310 Comment: lab draw error noted on 03/16/19. (3) GI bleed Current Visit: Yes Status: Acute Code(s): K92.2 - GASTROINTESTINAL HEMORRHAGE, UNSPECIFIED SNOMED Code(s): 77204546 Comment: gastrocult on 03/16/19 Heme + -suspect more due to mechanical injury from NG than ulcers or gastritis. Will cont Protonix IV BD and to monitor Hb stable (4) Hypoglycemia Current Visit: Yes Status: Acute Code(s): E16.2 - HYPOGLYCEMIA, UNSPECIFIED SNOMED Code(s): 908530211 Comment: while npo now on clears fingersticks achs will monitor ivf held (5) ESRD (end stage renal disease) on dialysis Current Visit: No Status: Acute Code(s): N18.6 - END STAGE RENAL DISEASE; Z99.2 - DEPENDENCE ON RENAL DIALYSIS SNOMED Code(s): 119669744 Comment: Continue home hemodialysis when in hosp HD Next HD on Wednesday if he is in the hospital Edema lower extremity with pain: may have illac problem and may need vascular eval on wednesday of his access.Will let Home HD program know.F/u Dr Ernandez for vascular as outpt Status and Disposition: Inpatient
[2019-03-19] MEDS: HYDROmorphone INJ1* 1 MG/ML SYRINGE IV SLOW PU PRN ×4 (00:50→16:27)
[2019-03-19] MEDS: Pantoprazole IV* 40 MG IV SCH ×2 (10:04→22:40)
[2019-03-19 11:32] LABS: ABS Eosinophils 0.2 10^3/ul (0-0.6); ABS Lymphocytes 0.4 10^3/ul (1.0-4.8); ABS Monocytes 0.6 10^3/ul (0-0.8); ABS Neutrophils 4.5 10^3/ul (1.5-7.7); Eosinophil % 3.5 %; Hematocrit 29 % (42-52); Hemoglobin 9.9 g/dL (14.0-18.0); Lymphocyte % 6.5 %; Mean Corpuscular HGB Conc 34 g/dL (31-36); Mean Corpuscular Hemoglobin 33 pg (27-31); Mean Corpuscular Volume 98 fL (80-94); Mean Platelet Volume 9.2 fL (7.4-10.4); Nucleated Red Blood Cells % 0.1; Platelet Count 131 10^3/uL (150-450); Red Blood Count 3.01 10^6 /uL (4.18-5.48); Red Cell Distribution Width 18 % (10-15); White Blood Count 5.8 10^3/uL (3.5-10.8)
[2019-03-19] MEDS ORDERED: oxyCODONE TAB* 5 MG TAB PO PRN (11:32)
[2019-03-19 11:45] LABS: BUN/Creatinine Ratio 4.2 (8-20); Calcium 7.4 mg/dL (8.6-10.3); EGFR African American 6.9 (>60); EGFR Non-African American 5.7 (>60); Potassium 4.6 mmol/L (3.5-5.0)
--- NOTE | 2019-03-19 13:28 | PN ---
Progress Note - Progress Note Date of Service: 03/19/19 Note: Surgery Progress Note S: Patient tolerated CLD without difficulty. He says he has no abdominal pain. No nausea or emesis. O: Vital Signs: Temp Pulse Resp BP Pulse Ox 98.6 F 93 16 128/72 96 03/19/19 11:31 03/19/19 11:31 03/19/19 11:32 03/19/19 11:31 03/19/19 11:31 Laboratory Results - last 24 hr 03/18/19 03/18/19 03/18/19 14:14 16:45 21:36 WBC RBC Hgb Hct MCV MCH MCHC RDW Plt Count MPV Neut % (Auto) Lymph % (Auto) [place] % (Auto) Eos % (Auto) Baso % (Auto) Absolute Neuts (auto) Absolute Lymphs (auto) Absolute Monos (auto) Absolute Eos (auto) Absolute Basos (auto) Absolute Nucleated RBC Nucleated RBC % Sodium Potassium Chloride Carbon Dioxide Anion Gap BUN Creatinine Est GFR ( Amer) Est GFR (Non-Af Amer) BUN/Creatinine Ratio Glucose POC Glucose (mg/dL) 100 82 125 H Calcium 03/19/19 03/19/19 03/19/19 08:04 10:49 10:49 WBC 5.8 RBC 3.01 L Hgb 9.9 L Hct 29 L MCV 98 H MCH 33 H MCHC 34 RDW 18 H Plt Count 131 L MPV 9.2 Neut % (Auto) 78.9 Lymph % (Auto) 6.5 [place] % (Auto) 10.7 Eos % (Auto) 3.5 Baso % (Auto) 0.4 Absolute Neuts (auto) 4.5 Absolute Lymphs (auto) 0.4 L Absolute Monos (auto) 0.6 Absolute Eos (auto) 0.2 Absolute Basos (auto) 0.0 Absolute Nucleated RBC 0.0 Nucleated RBC % 0.1 Sodium 135 Potassium 4.6 Chloride 95 L Carbon Dioxide 27 Anion Gap 13 H BUN 44 H Creatinine 10.45 H Est GFR ( Amer) 6.9 Est GFR (Non-Af Amer) 5.7 BUN/Creatinine Ratio 4.2 L Glucose 104 H POC Glucose (mg/dL) 99 Calcium 7.4 L Intake & Output 03/18/19 03/19/19 03/19/19 22:59 06:59 14:59 Intake Total 450 120 160 Output Total 0 Balance 450 120 160 Intake: Oral 450 120 160 Output: Urine 0 Other: Estimated Void Medium # Bowel Movements 3 1 Estimated Stool Amount Small Small # Voids 2 Physical exam: Abd: soft, non distedned, non tender, chronic midline scar from prior surgery present Ext: LLE > RLE edema, +DP palpable on left. Right DP, PT, left PT with excellent doppler flow, right upper thigh AV graft palpable, no distinct thrill. Tender in bilateral lower extremities but excellent range of motion and no decreased movement or sensation A/P: 33 M ESRD, SBO, resolved. - Advance diet to soft, can be dc'ed likely tomorrow once he is tolerating diet - Patient described his vascular history as having AV grafts placed in the right and lower extremities, and having needed multiple fistulograms and angioplasties in the past. 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 He also says he intermittently gets lower extremity swelling and pain like he currently has. I suspect he might have a venous outflow obstruction given his bilateral edema and tenderness. He has normal DP/PT pulses (although they are hard to palpate from his edema) making arterial insufficiency unlikely. I discussed with Dr. Bella who will contact his vascular surgeon at [facility] tomorrow for further recommendations. I recommend duplex of his left AV graft to assess for thrombus and bilateral LE duplex to assess for DVT.
--- NOTE | 2019-03-19 15:39 | PN ---
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 Objective Active Medications: Hydromorphone HCl (Dilaudid Inj1s*) 2 mg IV SLOW PU Q3HR PRN PRN Reason: severe pain Last Admin: 03/19/19 10:01 Dose: 2 mg Ondansetron HCl (Zofran Inj*) 4 mg IV Q6H PRN PRN Reason: NAUSEA Last Admin: 03/17/19 07:36 Dose: 4 mg Oxycodone HCl (Roxycodone Tab*) 5 mg PO Q6H PRN PRN Reason: PAIN Last Admin: 03/19/19 14:26 Dose: 5 mg Pantoprazole Sodium (Protonix Iv*) 40 mg IV Q12H MERARI Last Admin: 03/19/19 10:04 Dose: 40 mg Phenol/Menthol (Chloroseptic Throat [place]*) 1 spray MT Q4H PRN PRN Reason: SORE THROAT Last Admin: 03/16/19 21:32 Dose: 1 spray Prochlorperazine Edisylate (Compazine Inj*) 10 mg IV Q6H PRN PRN Reason: NAUSEA/VOMITING Vital Signs - 8 hr 03/19/19 03/19/19 03/19/19 08:10 10:01 11:31 Temperature 98.6 F Pulse Rate 93 Respiratory 16 16 16 Rate Blood Pressure 128/72 (mmHg) O2 Sat by Pulse 96 Oximetry 03/19/19 03/19/19 03/19/19 11:32 14:26 15:09 Temperature 98.9 F Pulse Rate 96 Respiratory 16 16 18 Rate Blood Pressure 133/81 (mmHg) O2 Sat by Pulse 94 Oximetry Oxygen Devices in Use Now: None Eyes: No Scleral Icterus Ears/Nose/Mouth/Throat: NL Teeth, Lips, Gums Neck: NL Appearance and Movements; NL JVP Respiratory: Symmetrical Chest Expansion and Respiratory Effort Cardiovascular: NL Sounds; No Murmurs; No JVD Abdominal: NL Sounds; No Tenderness; No Distention Extremities: - - 2+ Edema Pulses + Skin: No Rash or Ulcers Neurological: Alert and Oriented x 3 Result Diagrams: 03/19/19 10:49 03/19/19 10:49 Microbiology and Other Data: Microbiology 03/16/19 11:45 Gastric Occult Blood - Final Gastric Fluid Assess/Plan/Problems-Billing Assessment: 33 yo M with ESRD on home HD, h/o peritoneal dialysis and renal transplants(failedx2), PCKD, appy, secondary hypeparathyroidism (s/o parathyroidectomy) presents with SBO - Patient Problems (1) SBO (small bowel obstruction) Current Visit: Yes Status: Acute Code(s): K56.609 - UNSP INTESTNL OBST, UNSP TO PARTIAL VERSUS COMPLETE OBST SNOMED Code(s): 697034121 Comment: managed medically so far Appreciate surgery assistance. CT could not be perormed with contrast dut o h/o anaphylaxis to it. tolerated clear liq had bm this am and passing gas appreciate surgery input advanced to soft diet today (2) Blood chemistry abnormality Current Visit: Yes Status: Acute Code(s): R79.9 - ABNORMAL FINDING OF BLOOD CHEMISTRY, UNSPECIFIED SNOMED Code(s): 618076022 Comment: lab draw error noted on 03/16/19. (3) GI bleed Current Visit: Yes Status: Acute Code(s): K92.2 - GASTROINTESTINAL HEMORRHAGE, UNSPECIFIED SNOMED Code(s): 61542099 Comment: gastrocult on 03/16/19 Heme + -suspect more due to mechanical injury from NG than ulcers or gastritis. Will cont Protonix IV BD and to monitor Hb stable (4) Hypoglycemia Current Visit: Yes Status: Acute Code(s): E16.2 - HYPOGLYCEMIA, UNSPECIFIED SNOMED Code(s): 667285697 Comment: while npo now on clears resolved (5) ESRD (end stage renal disease) on dialysis Current Visit: No Status: Acute Code(s): N18.6 - END STAGE RENAL DISEASE; Z99.2 - DEPENDENCE ON RENAL DIALYSIS SNOMED Code(s): 065609037 Comment: Continue home hemodialysis when in hosp HD Edema lower extremity with pain: d/w surgery as well.Pulses intact. Will get vein duplex to r/o DVT and doppler his LE bovine graft.Good flows in HD on Wednesday.Has extensive peripheral vascular dx and his surgeon is in [place], dr kaufman.Will need to d/w dr kaufman tomorrow/mon who knows him well on further plan. h/o iliac vein stenosis and poss venous hypertension and outflow obstruction if pt discharged tomorrow can do home hd at home based on clinical progress will s/o dr peoples who is computational linguist tomorrow and knows him well Status and Disposition: Inpatient
[2019-03-19] MEDS: HYDROmorphone INJ1* 1 MG/ML SYRINGE IV PRN ×2 (19:36→22:46)
[2019-03-20] MEDS: HYDROmorphone INJ1* 1 MG/ML SYRINGE IV PRN ×3 (02:12→08:35)
[2019-03-20] MEDS ORDERED: oxyCODONE TAB* 5 MG TAB PO PRN (08:20)
[2019-03-20 08:36] LABS: ABS Basophils 0.1 10^3/ul (0-0.2); ABS Eosinophils 0.3 10^3/ul (0-0.6); ABS Lymphocytes 0.6 10^3/ul (1.0-4.8); ABS Monocytes 0.5 10^3/ul (0-0.8); ABS Neutrophils 3.2 10^3/ul (1.5-7.7); Eosinophil % 6.4 %; Hematocrit 29 % (42-52); Hemoglobin 9.5 g/dL (14.0-18.0); Lymphocyte % 12.2 %; Mean Corpuscular HGB Conc 33 g/dL (31-36); Mean Corpuscular Hemoglobin 33 pg (27-31); Mean Corpuscular Volume 100 fL (80-94); Mean Platelet Volume 8.9 fL (7.4-10.4); Nucleated Red Blood Cells % 0.1; Platelet Count 140 10^3/uL (150-450); Red Blood Count 2.91 10^6 /uL (4.18-5.48); Red Cell Distribution Width 18 % (10-15); White Blood Count 4.6 10^3/uL (3.5-10.8)
[2019-03-20] MEDS: Pantoprazole IV* 40 MG IV SCH (08:36)
[2019-03-20 08:37] LABS: BUN/Creatinine Ratio 4.9 (8-20); Calcium 7.1 mg/dL (8.6-10.3); EGFR African American 5.7 (>60); EGFR Non-African American 4.7 (>60); Potassium 4.6 mmol/L (3.5-5.0)
[2019-03-20] MEDS ORDERED: HYDROmorphone TAB* 4 MG PO PRN (10:49)
[2019-03-20 14:56] VITALS: BP 133/78
--- NOTE | 2019-03-21 12:19 | DS ---
CC: Dr. Orantes; Dr. Ernandez, Vascular Surgery, [facility] DISCHARGE SUMMARY: DATE OF ADMISSION: 03/15/19 DATE OF DISCHARGE: 03/20/19 PRIMARY DIAGNOSIS: Small-bowel obstruction. SECONDARY DIAGNOSES: 1. Autosomal dominant polycystic kidney disease. 2. End-stage renal disease, on hemodialysis. 3. Secondary hyperparathyroidism. 4. Anemia of chronic kidney disease. 5. Venous outflow obstruction of lower extremity bilaterally. MEDICATIONS ON DISCHARGE: 1. Erythropoietin 10,000 units injected subcutaneous twice a week with dialysis. 2. Acetaminophen 975 mg p.o. q.6 hours p.r.n. for mild pain. 3. Calcitriol 1 mcg p.o. b.i.d. 4. Calcium carbonate 1500 mg p.o. q.i.d. 5. Dilaudid 4 mg p.o. q.4 hours p.r.n. for [id number] pain. HOSPITAL COURSE: The patient was admitted through the emergency department with stabbing abdominal pain, which was worsening, accompanied by nausea. Please see Dr. Granado's H and P for full details. The patient had a CT scan on admission that showed partial small-bowel obstruction with a zone of transition in the central abdomen. It was also noted that the IVC was diminished in size with calcifications and there was extensive collateral venous flow through the azygos and hemiazygos veins as well as paraspinal veins. The patient's small- bowel obstruction was treated with NG tube, IV fluids, pain control, antiemetics. Surgical consultation was obtained with Dr. Castro, who recommended conservative care and surgery departments to follow the patient throughout the hospital stay. The patient's NG tube was dislodged and he declined any further NG tubes. He did have resolution of his small-bowel obstruction after 3 days and he was able to pass flatus and stool and tolerate liquids orally. The laboratory tests of note, the white count was normal throughout the hospital stay. The hemoglobin ranged from 9.5 to 12.3. Platelets were generally in the 123 to 145 range with one outlying platelet count at 41, which was likely a laboratory error. The patient's creatinine, of course, varies between 5 and 12 and he was able to have hemodialysis while he was in the hospital on Wednesday, Wednesday and Wednesday schedule. He was seen by Dr. Bella of nephrology as well. On the last 2 days of admission, the patient had severe bilateral leg pain. The leg pain was worse with walking, tolerable when standing, worsened behind the left knee upon lying down. The patient had lower extremity Doppler tests of the veins, which showed no DVT. The patient has fistula for hemodialysis in the right upper extremity as well as bilaterally in the right iliac to femoral vein. An ultrasound of the right iliac artery to femoral vein graft showed an area of increased flow velocity at 434 cm/sec, which corresponds in severe stenosis and correlating that with the CT findings showing the central venous occlusion stenosis, it was felt that the patient's leg pain and edema is due to outflow obstruction at a higher level in the iliac and inferior vena cava. The patient on the day of discharge is taking oral food and medication and is able to complete his hemodialysis. Yet, he understands that he has chronic venous problems that are causing leg pain and he agrees to see Dr. Ernandez, his vascular surgeon, within 4 days of discharge. The patient on the day of discharge did have a discussion with the nurse practitioner at that office and the patient will be scheduled this week to be seen. DIET: Renal. ACTIVITY: As tolerated. CONDITION: Stable. STATUS: Full inpatient. DISPOSITION: To home. FOLLOWUP: Dr. Orantes within 1 or 2 weeks. Follow up with Dr. Ernandez within 4 days. TIME SPENT: Greater than 35 minutes were spent with the patient on the day of discharge including completing necessary paperwork on discharge. [id number]/CPS #: [id number] MTDD
== END 2019-03-20 16:11 | disposition home or self-care (01) | DRG 388 ==
LOC: ED 23:41 → SSU 03-15 08:27
PROVIDERS: ADMIT Hospitalist; ATTEND Internal Medicine
PROC: 0D9670Z Drainage of Stomach with Drainage Device, Via Natural or Artificial Opening (ICD-10-PCS; principal; 2019-03-15)
PROC: 5A1D70Z Performance of Urinary Filtration, Intermittent, Less than 6 Hours Per Day (ICD-10-PCS; 2019-03-16)
DX: K56.600 Partial intestinal obstruction, unspecified as to cause (principal); N18.6 End stage renal disease; I87.1 Compression of vein; T86.12 Kidney transplant failure; I12.0 Hypertensive chronic kidney disease with stage 5 chronic kidney disease or end stage renal disease; E87.2 Acidosis; K92.2 Gastrointestinal hemorrhage, unspecified; Q61.2 Polycystic kidney, adult type; E87.5 Hyperkalemia; E16.2 Hypoglycemia, unspecified; Y83.0 Surgical operation with transplant of whole organ as the cause of abnormal reaction of the patient, or of later complication, without mention of misadventure at the time of the procedure; Z99.2 Dependence on renal dialysis; D63.1 Anemia in chronic kidney disease; I70.203 Unspecified atherosclerosis of native arteries of extremities, bilateral legs; E89.2 Postprocedural hypoparathyroidism; Z88.1 Allergy status to other antibiotic agents; Z91.041 Radiographic dye allergy status; Z91.048 Other nonmedicinal substance allergy status; Z82.49 Family history of ischemic heart disease and other diseases of the circulatory system; Z82.1 Family history of blindness and visual loss; Z87.891 Personal history of nicotine dependence; Y92.9 Unspecified place or not applicable; Z88.0 Allergy status to penicillin; Z91.030 Bee allergy status
CPT/HCPCS: 36415; 71045; 74018; 74019; 74176; 80048; 80053; 82150; 82271; 83605; 83690; 83735; 85025; 85610; 85730; 86140; 86706; 86850; 86900; 86901; 87340; 90935; 93970; 93990; 99284; A9270-GY; G0257; J1170; J1644; J2270; J2405; J2765; J3010

== ENCOUNTER 2019-04-09 11:28 | Emergency (ER) | payer MEDICARE, MEDICAID ==
[2019-04-09] MEDS ORDERED: Morphine 10 MG/ML VIAL (1 ml) IM ONE (12:15)
--- NOTE | 2019-04-09 12:17 | ED ---
Lower Extremity - HPI Summary HPI Summary: This patient is a 33 year old M presenting to [facility] accompanied by significant other with a chief complaint of pain in left leg for the past 3 weeks. The pain shoots up from foot to hip with every step he takes. Pt had an angioplasty on 03/31/19 at [facility]. After the procedure the swelling reduced, however the pain never went away. Symptoms aggravated at night and by walking. Symptoms alleviated by Tylenol. Pt denies back pain. Patient also denies fevers, chills, and N/V. Per triage, the patient rates the pain 6/10 in severity. Pt has a PMHx of polycystic kidney disease, HTN, Bowel Obstruction. Pt has had dialysis since . - History of Current Complaint Chief Complaint: EDExtremityLower Stated Complaint: LEG PAIN Time Seen by Provider: 04/09/19 11:54 Hx Obtained From: Patient Onset of Pain: Days Onset/Duration: Still Present Severity Initially: Moderate Severity Currently: Moderate Pain Intensity: 6 Pain Scale Used: 0-10 Numeric Timing: Constant Location: Is Discrete @ - left leg Character Of Pain: Sharp Associated Signs And Symptoms: Positive: Other - leg pain; neg - nausea, vomiting. Negative: Fever Aggravating Factor(s): Ambulation Alleviating Factor(s): OTC Meds - Allergies/Home Medications Allergies/Adverse Reactions: Allergies Allergy/AdvReac Type Severity Reaction Status Date / Time Iodinated Contrast Media Allergy Severe Anaphylatic Verified 04/09/19 11:35 [Iodinated Contrast- Oral Shock and IV Dye] bee venom protein (honey bee) Allergy Anaphylatic Verified 04/09/19 11:35 Shock cefazolin [From Ancef] Allergy Unknown Verified 04/09/19 11:35 Reaction Details cephalexin [From Keflex] Allergy Unknown Verified 04/09/19 11:35 Reaction Details Penicillins Allergy Unknown Verified 04/09/19 11:35 Reaction Details vancomycin Allergy Unknown Verified 04/09/19 11:35 Reaction Details PMH/Surg Hx/FS Hx/Imm Hx Endocrine/Hematology History: Reports: Hx Anticoagulant Therapy - HEPARIN DURING DIALYSIS, Hx Thyroid Disease - PARTIAL PARATHYROIDECTOMY Denies: Hx Diabetes Cardiovascular History: Reports: Hx Angina, Hx Hypertension, Other Cardiovascular Problems/Disorders - Pericarditis Denies: Hx Coronary Artery Disease, Hx Hypercholesterolemia, Hx Myocardial Infarction, Hx Pacemaker/ICD, Hx Valvular Heart Disease Respiratory History: Denies: Hx Asthma, Hx Chronic Obstructive Pulmonary Disease (COPD) History: Reports: Hx Chronic Renal Failure - hemodialysis 4x/week at home, Hx Renal Disease - dialysis , , wed Sensory History: Denies: Hx Contacts or Glasses, Hx Hearing Aid Opthamlomology History: Denies: Hx Contacts or Glasses Neurological History: Denies: Hx Dementia, Hx Seizures Psychiatric History: Denies: Hx Substance Abuse - Surgical History Surgery Procedure, Year, and Place: PARTIAL PARATHYROIDECTOMY, L ARM GRAFT, R LEG GRAFT, HEMODYALISIS CATHETER PLACEMENT, KIDNEY TRANSPLANT X2 - Immunization History Date of Tetanus Vaccine: Date of Influenza Vaccine: Fall 2015 Infectious Disease History: No Infectious Disease History: Denies: Hx Hepatitis, Hx Human Immunodeficiency Virus (HIV), Hx of Known/ Suspected MRSA, Traveled Outside the [place] in Last 30 Days - Family History Known Family History: Negative: Cardiac Disease - Social History Alcohol Use: None Hx Substance Use: No Substance Use Type: Reports: None Hx Tobacco Use: Yes Smoking Status (MU): Former Smoker Type: Cigarettes Amount Used/How Often: 1 pack lasted 4 days Length of Time of Smoking/Using Tobacco: 12 years Have You Smoked in the Last Year: No Review of Systems Negative: Fever, Chills Negative: Vomiting, Nausea Positive: Other - pos - leg pain All Other Systems Reviewed And Are Negative: Yes Physical Exam - Summary Physical Exam Summary: GENERAL: Patient is a well-developed and nourished M who is lying comfortable in the stretcher. Patient is not in any acute respiratory distress. HEAD AND FACE: Normocephalic EYES: PERRLA, EOMI x 2. EARS: Hearing grossly intact. MOUTH: Oropharynx within normal limits. NECK: Supple, trachea is midline, no adenopathy, no JVD, no carotid bruit. CHEST: Symmetric, no tenderness at palpation LUNGS: Clear to auscultation bilaterally. No wheezing or crackles. CVS: Regular rate and rhythm, S1 and S2 present, no murmurs or gallops appreciated. ABDOMEN: Soft, non-tender. Bowel sounds are normal. No abnormal abdominal pulsations. EXTREMITIES: Full ROM in all major joints, no edema, no cyanosis or clubbing; Lower left extremity side is warm and straight leg raise negative. Pulses present on Doppler bilateral. NEURO: Alert and oriented x 3. No acute neurological deficits. Speech is normal and follows commands. SKIN: Dry and warm Triage Information Reviewed: Yes Vital Signs On Initial Exam: Initial Vitals Temp Pulse Resp BP Pulse Ox 98.3 F 85 14 166/103 100 04/09/19 11:30 04/09/19 11:30 04/09/19 11:30 04/09/19 11:30 04/09/19 11:30 Vital Signs Reviewed: Yes Diagnostics - Vital Signs Vital Signs Temp Pulse Resp BP Pulse Ox 04/09/19 11:30 98.3 F 85 14 166/103 100 - Laboratory Lab Statement: Any lab studies that have been ordered have been reviewed, and results considered in the medical decision making process. - Additional Comments Diagnostic Additional Comments: Venous Doppler Study reveals, per radiologist, IMPRESSION: No evidence for LEFT lower extremity deep venous thrombosis. ED physician has reviewed this radiology report. Re-Evaluation - Re-Evaluation First Eval Re-Evaluation Time: 13:39 Comment: Pain is worsening Lower Extremity Course/Dx - Course Course Of Treatment: This patient is a 33 year old M presenting to [facility] accompanied by significant other with a chief complaint of pain in left leg for the past 3 weeks. Physical exam findings are nml except lower left extremity side is warm and straight leg raise negative. Pulses present on Doppler bilaterally. Venous Doppler Study reveals, per radiologist, IMPRESSION: No evidence for LEFT lower extremity deep venous thrombosis. ED physician has reviewed this radiology report. In the ED course the patient was given morphine , and oxycodone. I discussed results with patient, and he reports feeling better. He is hemodynamically stable and safe for discharge. Strict return precautions given and he will otherwise follow up with his Dr. John. Pt will be given a presciption for a few days of oxycodone, for pain management. Pt will be discharged. - Diagnoses Provider Diagnoses: Leg pain Discharge - Sign-Out/Discharge Documenting (check all that apply): Patient Departure - Discharge Patient Received Moderate/Deep Sedation with Procedure: No - Discharge Plan Condition: Stable Disposition: HOME Prescriptions: Oxycodone HCl 5 mg PO TID #9 tablet MDD 3 Patient Education Materials: Peripheral Neuropathy (ED) Referrals: David Orantes MD [Primary Care Provider] - Desmond John MD [Medical Doctor] - 3 Days Additional Instructions: Follow up with Dr. John, neurology in 1-3 days. RETURN TO THE EMERGENCY DEPARTMENT FOR CHANGING OR WORSENING SYMPTOMS. - Billing Disposition and Condition Condition: STABLE Disposition: Home - Attestation Statements Document Initiated by Mariela: Yes Documenting Scribe: Sharla Campos Provider For Whom Mariela is Documenting (Include Credential): Dr. Renée Latham MD Scribe Attestation: Sharla Storey, scribed for Dr. Renée Latham MD on 04/10/19 at 1202. Scribe Documentation Reviewed: Yes Provider Attestation: The documentation as recorded by the Sharla banks accurately reflects the service I personally performed and the decisions made by , Dr. Renée Latham MD Status of Scribe Document: Viewed
[2019-04-09] MEDS ORDERED: oxyCODONE/Acetamin 5/325 MG* TAB PO ONE (13:23)
[2019-04-09 14:26] VITALS: BP 156/103
== END 2019-04-09 14:25 | disposition home or self-care (01) ==
LOC: ED 11:28
DX: M79.605 Pain in left leg (principal); I12.9 Hypertensive chronic kidney disease with stage 1 through stage 4 chronic kidney disease, or unspecified chronic kidney disease; N18.9 Chronic kidney disease, unspecified; Z94.0 Kidney transplant status; Z88.0 Allergy status to penicillin; Z88.1 Allergy status to other antibiotic agents; Z91.030 Bee allergy status; Z91.041 Radiographic dye allergy status; Z79.01 Long term (current) use of anticoagulants; Z87.891 Personal history of nicotine dependence
CPT/HCPCS: 96372; 99283; A9270-GY; J2270

== ENCOUNTER 2019-04-30 16:13 | Emergency (ER) | payer MEDICARE, MEDICAID ==
--- NOTE | 2019-04-30 17:37 | ED ---
Abdominal Pain/Male - HPI Summary HPI Summary: This patient is a 33 year old M presenting to [facility] with a chief complaint of diffuse intermittent sharp abdomen pain since 1600 on 04/29/19. Pt ann tot chili s after the pain began. Per triage, the patient rates the pain 6/10 in severity. Symptoms aggravated by nothing. Patient reports constipation (last BM on 04/28/19), bloating, nausea. Patient denies vomiting. He is a dialysis pt. - History of Current Complaint Chief Complaint: EDAbdPain Stated Complaint: ABD PAIN PER PT Time Seen by Provider: 04/30/19 17:15 Hx Obtained From: Patient Onset/Duration: Sudden Onset, Still Present Timing: Intermittent Severity Initially: Mild Severity Currently: Moderate Pain Intensity: 6 Pain Scale Used: 0-10 Numeric Location: Diffuse Radiates: No Character: Sharp Aggravating Factor(s): Nothing Alleviating Factor(s): Spontaneous Resolution Associated Signs And Symptoms: Positive: Nausea, Other - pos - bloating. Negative: Vomiting - Allergies/Home Medications Allergies/Adverse Reactions: Allergies Allergy/AdvReac Type Severity Reaction Status Date / Time Iodinated Contrast Media Allergy Severe Anaphylatic Verified 04/30/19 16:20 [Iodinated Contrast- Oral Shock and IV Dye] bee venom protein (honey bee) Allergy Anaphylatic Verified 04/30/19 16:20 Shock cefazolin [From Ancef] Allergy Unknown Verified 04/30/19 16:20 Reaction Details cephalexin [From Keflex] Allergy Unknown Verified 04/30/19 16:20 Reaction Details Penicillins Allergy Unknown Verified 04/30/19 16:20 Reaction Details vancomycin Allergy Unknown Verified 04/30/19 16:20 Reaction Details PMH/Surg Hx/FS Hx/Imm Hx Endocrine/Hematology History: Reports: Hx Anticoagulant Therapy - HEPARIN DURING DIALYSIS, Hx Thyroid Disease - PARTIAL PARATHYROIDECTOMY Denies: Hx Diabetes Cardiovascular History: Reports: Hx Angina, Hx Hypertension, Other Cardiovascular Problems/Disorders - Pericarditis Denies: Hx Coronary Artery Disease, Hx Hypercholesterolemia, Hx Myocardial Infarction, Hx Pacemaker/ICD, Hx Valvular Heart Disease Respiratory History: Denies: Hx Asthma, Hx Chronic Obstructive Pulmonary Disease (COPD) History: Reports: Hx Chronic Renal Failure - hemodialysis 4x/week at home, Hx Renal Disease - dialysis tues, thurs, sat Sensory History: Denies: Hx Contacts or Glasses, Hx Hearing Aid Opthamlomology History: Denies: Hx Contacts or Glasses Neurological History: Denies: Hx Dementia, Hx Seizures Psychiatric History: Denies: Hx Substance Abuse - Surgical History Surgery Procedure, Year, and Place: PARTIAL PARATHYROIDECTOMY, L ARM GRAFT, R LEG GRAFT, HEMODYALISIS CATHETER PLACEMENT, KIDNEY TRANSPLANT X2 - Immunization History Date of Tetanus Vaccine: w Date of Influenza Vaccine: Fall 2015 Infectious Disease History: No Infectious Disease History: Denies: Hx Hepatitis, Hx Human Immunodeficiency Virus (HIV), Hx of Known/ Suspected MRSA, Traveled Outside the [place] in Last 30 Days - Family History Known Family History: Positive: None Negative: Cardiac Disease - Social History Alcohol Use: None Hx Substance Use: No Substance Use Type: Reports: None Hx Tobacco Use: Yes Smoking Status (MU): Former Smoker Type: Cigarettes Amount Used/How Often: 1 pack lasted 4 days Length of Time of Smoking/Using Tobacco: 12 years Have You Smoked in the Last Year: No Review of Systems Negative: Fever Positive: Abdominal Pain, Nausea, Other - Constipation, bloating. Negative: Vomiting All Other Systems Reviewed And Are Negative: Yes Physical Exam - Summary Physical Exam Summary: Appearance: The patient is well-nourished in no acute distress and in no acute pain. Skin: The skin is warm and dry, and skin color reflects adequate perfusion. HEENT: The head is normocephalic and atraumatic. The pupils are equal and reactive. The conjunctivae are clear and without drainage. Nares are patent and without drainage. Mouth reveals moist mucous membranes, and the throat is without erythema and exudate. The external ears are intact. The ear canals are patent and without drainage. The tympanic membranes are intact. Neck: The neck is supple with full range of motion and non-tender. There are no carotid bruits. There is no neck vein distension. Respiratory: Chest is non-tender. Lungs are clear to auscultation and breath sounds are symmetrical and equal. Cardiovascular: Heart is regular rate and rhythm. There is no murmur or rub auscultated. There is no peripheral edema and pulses are symmetrical and equal. Abdomen: The abdomen is soft. Guarding and diffuse tenderness. There are normal bowel sounds heard in all four quadrants and there is no organomegaly palpated. Musculoskeletal: There is no back tenderness noted. Extremities are non-tender with full range of motion. There is good capillary refill. There is no peripheral edema or calf tenderness elicited. Neurological: Patient is alert and oriented to person, place and time. The patient has symmetrical motor strength in all four extremities. Cranial nerves are grossly intact. Deep tendon reflexes are symmetrical and equal in all four extremities. Psychiatric: The patient has an appropriate affect and does not exhibit any anxiety or depression. Triage Information Reviewed: Yes Vital Signs On Initial Exam: Initial Vitals Temp Pulse Resp BP Pulse Ox 98.0 F 89 18 159/100 98 04/30/19 16:17 04/30/19 16:17 04/30/19 16:17 04/30/19 16:17 04/30/19 16:17 Vital Signs Reviewed: Yes Diagnostics - Vital Signs Vital Signs Temp Pulse Resp BP Pulse Ox 04/30/19 16:17 98.0 F 89 18 159/100 98 - Laboratory Result Diagrams: 04/30/19 18:45 04/30/19 18:45 Lab Statement: Any lab studies that have been ordered have been reviewed, and results considered in the medical decision making process. Abdominal Pain Male Course/Dx - Course Course Of Treatment: Mr. Peacock presented with abdominal pain. He was guarding and difficult to evaluate. He was given pain medication and fluids while labs and CT are being obtained. He will be turned over to Dr. Gee pending results. - Diagnoses Provider Diagnoses: Acute abdominal pain Discharge ED - Sign-Out/Discharge Documenting (check all that apply): Patient Departure, Sign-Out Patient Signing out patient TO: Boogie Villalba - at shift change 1900 on 04/30/[address] and results Receiving patient FROM: Boogie Sims Patient Received Moderate/Deep Sedation with Procedure: No - Discharge Plan Condition: Fair Disposition: HOME Patient Education Materials: Acute Abdominal Pain (ED) Referrals: David Orantes MD [Primary Care Provider] - Additional Instructions: Despite all the tests and imaging, it is still unclear what is causing your pain. I think it is ok for you to go home tonight, but if you get worse we would need to see you back here. - Billing Disposition and Condition Condition: FAIR Disposition: Home - Attestation Statements Document Initiated by Scribe: Yes Documenting Scribe: Sharla Campos Provider For Whom Scribe is Documenting (Include Credential): Boogie Sims MD Scribe Attestation: I, Sharla Campos, scribed for Boogie Sims MD on 05/01/19 at 0854. Scribe Documentation Reviewed: Yes Provider Attestation: The documentation as recorded by the scribe, Sharla Campos accurately reflects the service I personally performed and the decisions made by me, Boogie Sims MD Status of Scribe Document: Viewed
[2019-04-30] MEDS ORDERED: HYDROmorphone INJ1* 1 MG/ML SYRINGE IV SLOW PU ONE ×2 (18:22→21:39)
[2019-04-30] MEDS ORDERED: Ondansetron INJ* 2 MG/ML VIAL IV ONE (18:22)
[2019-04-30 19:07] LABS: ABS Basophils 0.1 10^3/ul (0-0.2); ABS Eosinophils 0.2 10^3/ul (0-0.6); ABS Lymphocytes 0.8 10^3/ul (1.0-4.8); ABS Monocytes 0.4 10^3/ul (0-0.8); ABS Neutrophils 3.1 10^3/ul (1.5-7.7); Eosinophil % 3.7 %; Hematocrit 27 % (42-52); Hemoglobin 8.8 g/dL (14.0-18.0); Lymphocyte % 17.4 %; Mean Corpuscular HGB Conc 33 g/dL (31-36); Mean Corpuscular Hemoglobin 32 pg (27-31); Mean Corpuscular Volume 96 fL (80-94); Mean Platelet Volume 8.1 fL (7.4-10.4); Platelet Count 160 10^3/uL (150-450); Red Blood Count 2.77 10^6 /uL (4.18-5.48); Red Cell Distribution Width 18 % (10-15); White Blood Count 4.6 10^3/uL (3.5-10.8)
[2019-04-30 19:24] LABS: Albumin 4.6 g/dL (3.2-5.2); Albumin/Globulin Ratio 1.5 (1-3); BUN/Creatinine Ratio 5.3 (8-20); C Reactive Protein 18.16 mg/L (<8.01); EGFR African American 4.1 (>60); EGFR Non-African American 3.4 (>60); Globulin 3.1 g/dL (2-4); Total Bilirubin 0.5 mg/dL (0.2-1.0); Total Protein 7.7 g/dL (6.4-8.9)
--- NOTE | 2019-04-30 21:37 | ED ---
Progress - Progress Note Progress Note: Receiving sign-out from Dr. Sims at [address] Abd/pel. CT Abd/Pel: 1. Appendix not clearly identified, but no significant pericecal fluid or stranding identified. If symptoms persist, consider followup CT with oral and IV contrast. 2. Gallbladder wall poorly identified. No calcified gallstones. If there is clinical concern for acute cholectstitis, right upper quadrant also may be helpful. 3. Atrophic kidneys bilaterally. 4. Small amoubt of perihepatic ascites. 5. An anterior abdominal wall perumbilical skin defect with skin thickening is grossly unchanged. 6. Numerous abdominal collateral vessels again noted. 7. High density foci are noted in the lower IVC extending into the common iliac veins. Surgical material scarring notedi n the region of the left external iliac artery and vein. Correlate with clinical and surgical history. ED Provider has reviewed this report. A plan for discharge was discussed with the patient and he was agreeable with this plan. Course/Dx - Course Course Of Treatment: Receiving sign-out from Dr. Sims at [address] Abd/ pel. CT Abd/Pel: 1. Appendix not clearly identified, but no significant pericecal fluid or stranding identified. If symptoms persist, consider followup CT with oral and IV contrast. 2. Gallbladder wall poorly identified. No calcified gallstones. If there is clinical concern for acute cholectstitis, right upper quadrant also may be helpful. 3. Atrophic kidneys bilaterally. 4. Small amoubt of perihepatic ascites. 5. An anterior abdominal wall perumbilical skin defect with skin thickening is grossly unchanged. 6. Numerous abdominal collateral vessels again noted. 7. High density foci are noted in the lower IVC extending into the common iliac veins. Surgical material scarring notedi n the region of the left external iliac artery and vein. Correlate with clinical and surgical history. ED Provider has reviewed this report. I reviewed the case with Dr. Alonzo with respect to abnormalities of gall bladder. He did not feel they were clinically significant at this point , but would be happy to see the patient in consultation if the patient were to be admitted. A plan for discharge was discussed with the patient and he was agreeable with this plan. - Diagnoses Provider Diagnoses: Acute abdominal pain Discharge ED - Sign-Out/Discharge Documenting (check all that apply): Patient Departure - Discharge Patient Received Moderate/Deep Sedation with Procedure: No - Discharge Plan Condition: Fair Disposition: HOME Patient Education Materials: Acute Abdominal Pain (ED) Referrals: David Orantes MD [Primary Care Provider] - Additional Instructions: Despite all the tests and imaging, it is still unclear what is causing your pain. I think it is ok for you to go home tonight, but if you get worse we would need to see you back here. - Billing Disposition and Condition Condition: FAIR Disposition: Home - Attestation Statements Document Initiated by Mariela: Yes Documenting Scribe: Montana Stanford Provider For Whom Mariela is Documenting (Include Credential): Boogie Villalba MD Scribe Attestation: I, Montana Stanford, scribed for Boogie Villalba MD on 05/01/19 at 1909. Scribe Documentation Reviewed: Yes Provider Attestation: The documentation as recorded by the Montnaa banks accurately reflects the service I personally performed and the decisions made by me, Boogie Villalba MD Status of Scribe Document: Viewed
[2019-04-30 23:57] VITALS: BP 142/106
== END 2019-04-30 23:56 | disposition home or self-care (01) ==
LOC: ED 16:13
DX: R10.9 Unspecified abdominal pain (principal); Z79.01 Long term (current) use of anticoagulants; I10 Essential (primary) hypertension; Z86.79 Personal history of other diseases of the circulatory system; I12.9 Hypertensive chronic kidney disease with stage 1 through stage 4 chronic kidney disease, or unspecified chronic kidney disease; N18.9 Chronic kidney disease, unspecified; Z99.2 Dependence on renal dialysis; Z87.891 Personal history of nicotine dependence
CPT/HCPCS: 36415; 74176; 76705; 80053; 83605; 83690; 85025; 86140; 87040; 96374; 96375; 96376; 99283; J1170; J2405

== ENCOUNTER 2019-05-02 18:15 | Inpatient (IN) | payer MEDICARE, MEDICAID ==
--- NOTE | 2019-05-02 21:46 | ED ---
Abdominal Pain/Male - HPI Summary HPI Summary: This patient is a 33 year old M w hx of polycystic kidney disease, ESRD on on home HD, presenting to ED with a chief complaint of intermittent upper-middle right-sided abdominal pain since 04/29/19. Patient was seen here in [facility] on had workup including a CT A/P and RUQ ultrasound that showed trace pericholecystic fluid and gallbladder wall thickening but no stones.. Patient declined admission at that time, but returns because the pain has been persistent. He reports 5/10 sharp pain located in the right upper quadrant. Symptoms aggravated by lifting something heavy or going up a flight of stairs. Symptoms also aggravated by eating oily foods (Chilis). Symptoms alleviated by nothing. Patient reports mild diarrhea, nausea, decreased appetite. Patient denies vomiting, fever. Patients last dialysis was yesterday. PSHx of appendectomy. - History of Current Complaint Chief Complaint: EDAbdPain Stated Complaint: ABD PAIN PER PT SIGNIFICANT OTHER Time Seen by Provider: 05/02/19 21:08 Hx Obtained From: Patient, Medical Records Onset/Duration: Gradual Onset, Lasting Days - Since 04/29/19, Still Present Timing: Intermittent Severity Initially: Moderate Severity Currently: Moderate Pain Intensity: 5 Pain Scale Used: 0-10 Numeric Location: Discrete At: RUQ Aggravating Factor(s): Food - Oily, Other: - Lifting heavy things, going up stairs Alleviating Factor(s): Nothing Associated Signs And Symptoms: Positive: Nausea, Diarrhea. Negative: Fever, Vomiting - Allergies/Home Medications Allergies/Adverse Reactions: Allergies Allergy/AdvReac Type Severity Reaction Status Date / Time Iodinated Contrast Media Allergy Severe Anaphylatic Verified 04/30/19 16:20 [Iodinated Contrast- Oral Shock and IV Dye] bee venom protein (honey bee) Allergy Anaphylatic Verified 04/30/19 16:20 Shock cefazolin [From Ancef] Allergy Unknown Verified 04/30/19 16:20 Reaction Details cephalexin [From Keflex] Allergy Unknown Verified 04/30/19 16:20 Reaction Details Penicillins Allergy Unknown Verified 04/30/19 16:20 Reaction Details vancomycin Allergy Unknown Verified 04/30/19 16:20 Reaction Details PMH/Surg Hx/FS Hx/Imm Hx Endocrine/Hematology History: Reports: Hx Anticoagulant Therapy - HEPARIN DURING DIALYSIS, Hx Thyroid Disease - PARTIAL PARATHYROIDECTOMY Denies: Hx Diabetes Cardiovascular History: Reports: Hx Angina, Hx Hypertension, Other Cardiovascular Problems/Disorders - Pericarditis Denies: Hx Coronary Artery Disease, Hx Hypercholesterolemia, Hx Myocardial Infarction, Hx Pacemaker/ICD, Hx Valvular Heart Disease Respiratory History: Denies: Hx Asthma, Hx Chronic Obstructive Pulmonary Disease (COPD) History: Reports: Hx Chronic Renal Failure - hemodialysis 4x/week at home, Hx Renal Disease - dialysis tues, th, sat Sensory History: Denies: Hx Contacts or Glasses, Hx Hearing Aid Opthamlomology History: Denies: Hx Contacts or Glasses Neurological History: Denies: Hx Dementia, Hx Seizures Psychiatric History: Denies: Hx Substance Abuse - Surgical History Surgery Procedure, Year, and Place: PARTIAL PARATHYROIDECTOMY, L ARM GRAFT, R LEG GRAFT, HEMODYALISIS CATHETER PLACEMENT, KIDNEY TRANSPLANT X2, APPENDECTOMY - Immunization History Date of Tetanus Vaccine: [facility] Date of Influenza Vaccine: Fall 2015 Infectious Disease History: No Infectious Disease History: Denies: Hx Hepatitis, Hx Human Immunodeficiency Virus (HIV), Hx of Known/ Suspected MRSA, Traveled Outside the [place] in Last 30 Days - Family History Known Family History: Positive: Hypertension, Diabetes Negative: Cardiac Disease - Social History Alcohol Use: None Hx Substance Use: No Substance Use Type: Reports: None Hx Tobacco Use: Yes Smoking Status (MU): Former Smoker Type: Cigarettes Amount Used/How Often: 1 pack lasted 4 days Length of Time of Smoking/Using Tobacco: 12 years Have You Smoked in the Last Year: No Review of Systems Negative: Fever Positive: Abdominal Pain - Right upper-mid, Diarrhea, Nausea, Other - Decreased appetite. Negative: Vomiting All Other Systems Reviewed And Are Negative: Yes Physical Exam - Summary Physical Exam Summary: Constitutional: Well-developed, Well-nourished, Alert. (-) Distressed Skin: Warm, Dry HENT: Normocephalic; Atraumatic Eyes: Conjunctiva normal Neck: Musculoskeletal ROM normal neck. (-) JVD, (-) Stridor, (-) Nuchal rigidity Cardio: Rhythm regular, rate normal, Heart sounds normal; Intact distal pulses; Radial pulses are 2+ and symmetric (-) Murmur Pulmonary/Chest wall: Effort normal. (-) Respiratory distress, (-) Wheezes, (-) Rales Abd: RUQ tenderness with voluntary guarding, + BS, ND Musculoskeletal: Fistula in LUE Lymph: (-) Cervical adenopathy Neuro: Alert, Oriented x3 Psych: Mood and affect Normal Triage Information Reviewed: Yes Vital Signs On Initial Exam: Initial Vitals Temp Pulse Resp BP Pulse Ox 98.7 F 89 18 142/97 98 05/02/19 18:28 05/02/19 18:28 05/02/19 18:28 05/02/19 18:28 05/02/19 18:28 Vital Signs Reviewed: Yes Diagnostics - Vital Signs Vital Signs Temp Pulse Resp BP Pulse Ox 05/02/19 21:18 79 151/101 99 05/02/19 21:17 81 100 05/02/19 20:32 99.1 F 82 16 134/83 100 05/02/19 18:28 98.7 F 89 18 142/97 98 - Laboratory Result Diagrams: 05/02/19 23:45 05/02/19 20:59 Lab Statement: Any lab studies that have been ordered have been reviewed, and results considered in the medical decision making process. Abdominal Pain Male Course/Dx - Course Course Of Treatment: 33 year-old male with a history of polycystic kidney disease, on home dialysis who presents with right upper quadrant pain and diarrhea. - Physical exam w R upper quadrant tenderness, voluntary guarding, otherwise well appearing. Vitals stable. Recent imaging including a CT without obvious abnormality, RUQ ultrasound with thickened gallbladder and trace pericholecystic fluid but no stones. Labs are notable for lipase of 114. Given patient's continued pain, will admit for possible surgical consult in the morning. No leukocytosis on CBC. - Diagnoses Provider Diagnoses: RUQ pain - Provider Notifications Discussed Care Of Patient With: Genesis Woody Time Discussed With Above Provider: 22:25 Instructed by Provider To: Admit As Inpatient - Discussed patient case with Dr. Woody, hospitalist, who accepted patient for admission to [facility]. Discharge ED - Sign-Out/Discharge Documenting (check all that apply): Patient Departure - Admit Patient Received Moderate/Deep Sedation with Procedure: No - Discharge Plan Condition: Fair Disposition: ADMITTED TO [facility] - Billing Disposition and Condition Condition: FAIR Disposition: Admitted to [facility] - Attestation Statements Document Initiated by Scribe: Yes Documenting Scribe: Norris Gale Provider For Whom Scribe is Documenting (Include Credential): Kenrick Sifuentes MD Scribe Attestation: I, Norris Gale, scribed for Kenrick Sifuentes MD on 05/03/19 at 0446. Scribe Documentation Reviewed: Yes Provider Attestation: The documentation as recorded by the scribe, Norris Gale accurately reflects the service I personally performed and the decisions made by me, Kenrick Sifuentes MD Status of Scribe Document: Viewed
[2019-05-02 21:54] LABS: Albumin 4.6 g/dL (3.2-5.2); Calcium 7.3 mg/dL (8.6-10.3); Potassium 4.7 mmol/L (3.5-5.0); Total Bilirubin 0.7 mg/dL (0.2-1.0)
[2019-05-02 22:01] LABS: Albumin/Globulin Ratio 1.4 (1-3); BUN/Creatinine Ratio 4.8 (8-20); C Reactive Protein 33.47 mg/L (<8.01); EGFR African American 5.3 (>60); EGFR Non-African American 4.4 (>60); Globulin 3.2 g/dL (2-4); Total Protein 7.8 g/dL (6.4-8.9)
[2019-05-03] MEDS ORDERED: Morphine 4 MG/ML VIAL (1 ml) 4 MG/ML VIAL IV ONE (00:14)
[2019-05-03 00:42] LABS: ABS Basophils 0.1 10^3/ul (0-0.2); ABS Eosinophils 0.2 10^3/ul (0-0.6); ABS Lymphocytes 0.7 10^3/ul (1.0-4.8); ABS Monocytes 0.6 10^3/ul (0-0.8); ABS Neutrophils 3.5 10^3/ul (1.5-7.7); Eosinophil % 4.8 %; Hematocrit 27 % (42-52); Hemoglobin 9.1 g/dL (14.0-18.0); Lymphocyte % 14.3 %; Mean Corpuscular HGB Conc 33 g/dL (31-36); Mean Corpuscular Hemoglobin 31 pg (27-31); Mean Corpuscular Volume 94 fL (80-94); Mean Platelet Volume 8.3 fL (7.4-10.4); Platelet Count 177 10^3/uL (150-450); Red Blood Count 2.89 10^6 /uL (4.18-5.48); Red Cell Distribution Width 18 % (10-15); White Blood Count 5.2 10^3/uL (3.5-10.8)
[2019-05-03] MEDS ORDERED: Acetaminophen TAB* 325 MG PO PRN (01:52)
[2019-05-03] MEDS: Heparin VIAL(*) 5000 UNITS/ML VIAL (FIVE THOUSAND) SUBCUT SCH ×3 (05:39→23:44)
[2019-05-03] MEDS ORDERED: Ondansetron INJ* 2 MG/ML VIAL IV ONE (05:45)
--- NOTE | 2019-05-03 06:47 | ADMNOTE ---
Subjective Date of Service: 05/03/19 Interval History: 33 yo male with past medical history of ESRD on home dialysis, appendectomy who presented with right sided abdominal pain. Pain started this past wednesday. Pt actually came to the ED where he had an US and a CT abdomen done. CT normal. US showed localized gallbladder edema and trace pericholecystic fluid. Pt had prior engagements and felt comfortable going home. He comes back now because nothing has changed. His vitals are stable , his labs are benign, no cholecystic pattern. He describes his pain as constant, stabbing in nature. Exacerbated with movement , exertion and greasy food. Associated with diarhea which started around the same time. He has up to 5-6 BM daily. He does not feel that the pain and the diarrhea are related. Otherwise he has a bit of nausea and his appetite has been poor. Review of Systems - Measurements Intake and Output: Intake and Output Last 24 Hours 04/30/19 05/01/19 05/02/19 05/03/19 06:59 06:59 06:59 06:59 Weight 150 lb - Review of Systems Constitutional Symptoms: Positive: Weight Loss, Fatigue Dermatology: Negative: Normal, Rash, Skin Lesions, Cancer, Skin Lumps, Other HEENT: Negative: Normal, Change in Hearing, Vertigo, Dental Problems, Tinnitus, Sinus Problem, Other Thyroid: Positive: Normal Pulmonary: Negative: Normal, Cough, Sputum, Hemoptysis, Wheezing, Respiratory Distress, Shortness of Breath, COPD, Asthma, Exercise Intolerance, Home Oxygen, Other Cardiology: Negative: Normal, Chest Pain, Shortness of Breath, Palpitations, Swelling of Ankles, Peripheral Vascular Dis, Edema, Faintness, Syncope, Claudication, Proximal NocturnalDyspnea, Orthopnoea, Other Gastroenterology: Positive: Abdominal Pain, Nausea, Diarrhea, Change in Bowel Habits Musculoskeletal: Negative: Joint Pain, Joint Stiffness, Arthritis, Osteoporosis, Low Back Pain , Sciatica, Joint Deformities, Kyphoscoliosis, Other Endocrinology: Positive: Normal Hematologic/Lymphatic: Negative: Anemia, Easy Bruising, Hx Leukemia, Hx Lymphoma, Use of Anticoagulant, Use of Antiplatelet Drugs, Other Neurology: Negative: Normal, Headache, Migraines, Change in Vision, Diplopia, Dizziness , Change in Balancing, Change in Coordination, Change in Memory, Change in Speech, Change in Sphincter Function, Change in Walking, Numbness\Paresthesiae, Unexplained Weakness, Hx of Stroke\TIA, Hx of Seizures, Other Psychiatry: Negative: Normal, Depression, Anxiety, Depressed Mood, Anhedonia, Sexual Dysfunction, Weight Change, Guilt Feelings, Tearfulness, Unusual Fatigue, Unusual Anxiety, Suicidal Ideation, Hypomania, Eating Disorders, Other Objective Active Medications: Acetaminophen (Tylenol Tab*) 650 mg PO Q6H PRN PRN Reason: PAIN - MILD Last Admin: 05/03/19 02:42 Dose: 650 mg Heparin Sodium (Porcine) (Heparin Vial(*)) 5,000 units SUBCUT Q8HR MERARI Last Admin: 05/03/19 05:39 Dose: 5,000 units Vital Signs - 8 hr 05/03/19 05/03/19 05/03/19 00:00 00:02 00:17 Temperature Pulse Rate 91 89 88 Respiratory Rate Blood Pressure 171/104 149/106 (mmHg) O2 Sat by Pulse 99 99 99 Oximetry 05/03/19 05/03/19 05/03/19 00:18 00:48 00:54 Temperature Pulse Rate 80 81 Respiratory 16 Rate Blood Pressure 159/105 156/114 (mmHg) O2 Sat by Pulse 97 99 Oximetry 05/03/19 05/03/19 05/03/19 01:00 01:18 01:58 Temperature 98.4 F Pulse Rate 82 82 80 Respiratory 16 Rate Blood Pressure 149/96 146/96 (mmHg) O2 Sat by Pulse 100 96 99 Oximetry 05/03/19 02:03 Temperature 97.1 F Pulse Rate 80 Respiratory 22 Rate Blood Pressure 143/93 (mmHg) O2 Sat by Pulse 100 Oximetry Oxygen Devices in Use Now: None Eyes: No Scleral Icterus, PERRLA Ears/Nose/Mouth/Throat: NL Teeth, Lips, Gums Neck: NL Appearance and Movements; NL JVP Respiratory: Symmetrical Chest Expansion and Respiratory Effort, Clear to Auscultation Cardiovascular: NL Sounds; No Murmurs; No JVD Abdominal: - - normal sounds. Tenderness in RLQ. Open wound in periumbilical area Extremities: No Edema Neurological: Alert and Oriented x 3 Result Diagrams: 05/02/19 23:45 05/02/19 20:59 Microbiology and Other Data: Microbiology 05/03/19 03:15 Nasal Screen MRSA (PCR) - Final Nasal Mrsa Not Detected Assess/Plan/Problems-Billing Assessment: - Patient Problems (1) Abdominal pain Current Visit: Yes Status: Acute Code(s): R10.9 - UNSPECIFIED ABDOMINAL PAIN SNOMED Code(s): 71338671 Comment: Pain to me appears to be in right lower quadrant. Pt says it radiates upward and medially. Exacerbated with movements and certain food. Not very specific. Given the association with diarrhea, tempted to consider possible enteritis? Localized gallbladder thickening could just be from ascites. He has no CBD enlargement from most recent US and no cholestasis pattern. His lipase is slightly elevated but pain is atypical for pancreatitis and the CT abdomen from a few days ago showed a normal pancreas. I have the pt NPO overnight to advance to bland low residue foods as tolerated. (2) DVT prophylaxis Current Visit: No Status: Acute Code(s): AVO9355 - SNOMED Code(s): 144769718 Comment: ambulation (3) ESRD (end stage renal disease) on dialysis Current Visit: No Status: Acute Code(s): N18.6 - END STAGE RENAL DISEASE; Z99.2 - DEPENDENCE ON RENAL DIALYSIS SNOMED Code(s): 321478922 Comment: Continue home hemodialysis when in hosp HD (4) Full code status Current Visit: No Status: Acute Code(s): Z78.9 - OTHER SPECIFIED HEALTH STATUS SNOMED Code(s): 607870762 (5) Polycystic kidney disease Current Visit: No Status: Acute Code(s): Q61.3 - POLYCYSTIC KIDNEY, UNSPECIFIED SNOMED Code(s): 60238914 Comment: on home HD (6) Anemia Current Visit: Yes Status: Acute Code(s): D64.9 - ANEMIA, UNSPECIFIED SNOMED Code(s): 136674785 Comment: macrocytic anemia, hx of GI bleed Follow iron panel
[2019-05-03 08:19] LABS: Total Iron Binding Capacity 262 mcg/dL (250-450); Transferrin 187 mg/dL (203-362)
[2019-05-03] MEDS ORDERED: Ondansetron INJ* 2 MG/ML VIAL IV PRN (08:27)
[2019-05-03] MEDS: Morphine INJ* 2 MG/ML 1 ML SYRINGE (TWO MG - NEW SYRINGE VERSION) IV PRN ×4 (09:28→23:30)
[2019-05-03] MEDS ORDERED: EPOETIN ALFA-EPBX * 10,000 UNIT/ML VIAL IV ONE (12:00)
[2019-05-03] MEDS ORDERED: Heparin DIALYSIS ONLY(*) 1,000 UNITS/ML VIAL DIALYSIS ONE (12:00)
--- NOTE | 2019-05-03 14:24 | PN ---
Subjective Date of Service: 05/03/19 Interval History: Patient is still having right sided abdominal pain which is severe, worse with eating and exacerbated even by light touch. Patient has not had any subjective fevers or chills. Patient has been having nausea without vomiting and has been having diarrhea. Patient's symptoms began when he ate a fatty meal. Family History: Unchanged from Admission Social History: Unchanged from Admission Past Medical History: Unchanged from Admission Objective Active Medications: Acetaminophen (Tylenol Tab*) 650 mg PO Q6H PRN PRN Reason: PAIN - MILD Last Admin: 05/03/19 02:42 Dose: 650 mg Heparin Sodium (Porcine) (Heparin Vial(*)) 5,000 units SUBCUT Q8HR MERARI Last Admin: 05/03/19 05:39 Dose: 5,000 units Piperacillin Sod/Tazobactam (Sod 3.375 gm/ Sodium Chloride) 100 mls @ 200 mls/ hr IVPB ONCE ONE Stop: 05/03/19 14:44 Morphine Sulfate (Morphine Inj (Syringe))*) 2 mg IV Q4H PRN PRN Reason: PAIN - SEVERE Last Admin: 05/03/19 09:28 Dose: 2 mg Ondansetron HCl (Zofran Inj*) 4 mg IV Q6H PRN PRN Reason: NAUSEA Pharmacy Consult (Zosyn Per Pharmacy*) 1 note FOLLOW UP .ZOSYN PER PHARMACY [facility] Vital Signs - 8 hr 05/03/19 05/03/19 05/03/19 07:15 08:00 09:28 Temperature 97.4 F 97.4 F Pulse Rate 76 76 Respiratory 17 17 18 Rate Blood Pressure 151/87 151/87 (mmHg) O2 Sat by Pulse 100 100 Oximetry 05/03/19 10:28 Temperature Pulse Rate Respiratory 17 Rate Blood Pressure (mmHg) O2 Sat by Pulse Oximetry Oxygen Devices in Use Now: None Appearance: Patient is a 33yo male who appears stated age and is sitting in the bed in [facility]. Eyes: No Scleral Icterus, PERRLA Ears/Nose/Mouth/Throat: NL Teeth, Lips, Gums, Clear Oropharnyx, Mucous Membranes Moist Neck: NL Appearance and Movements; NL JVP, Trachea Midline Respiratory: Symmetrical Chest Expansion and Respiratory Effort, Clear to Auscultation Cardiovascular: NL Sounds; No Murmurs; No JVD, RRR, No Edema Abdominal: - - Open wound on abdomen without discharge on dressing. Tenderness to any touch on the right side of the abdomen. Normoactive bowel sounds. Lymphatic: No Cervical Adenopathy Extremities: No Edema, No Clubbing, Cyanosis Skin: No Nodules or Sclerosis Neurological: Alert and Oriented x 3, NL Sensation, NL Muscle Strength and Tone , - - CN II-XII intact. Result Diagrams: 05/02/19 23:45 05/02/19 20:59 Microbiology and Other Data: Microbiology 05/03/19 03:15 Nasal Screen MRSA (PCR) - Final Nasal Mrsa Not Detected Assess/Plan/Problems-Billing Assessment: Patient is a 33yo male with PCKD S/P 2 renal transplants, on HD who is here with abdominal pain, nausea, and diarrhea. Patient is presumptively diagnosed with acalculous cholecystitis. - Patient Problems (1) Abdominal pain Current Visit: Yes Status: Acute Code(s): R10.9 - UNSPECIFIED ABDOMINAL PAIN SNOMED Code(s): 81082625 Comment: - Pain to me appears to be in right lower quadrant. Exacerbated with movements and certain food. - Localized gallbladder thickening could just be from ascites. - He has no CBD enlargement from most recent US and no cholestasis pattern. His lipase is slightly elevated at his established baseline. Appreciate surgery input, presumptive diagnosis of acalculous cholecystitis. - Treat with antibiotics - NPO for now, current conservative management, Opiate Pain medication. - History SBO with no SBO on recent CT A/P (2) Polycystic kidney disease Current Visit: No Status: Acute Code(s): Q61.3 - POLYCYSTIC KIDNEY, UNSPECIFIED SNOMED Code(s): 63186496 Comment: - On home HD, dialysis today. (3) DVT prophylaxis Current Visit: No Status: Acute Code(s): KXK4344 - SNOMED Code(s): 346549227 Comment: - Ambulation (4) Full code status Current Visit: No Status: Acute Code(s): Z78.9 - OTHER SPECIFIED HEALTH STATUS SNOMED Code(s): 475578859 Status and Disposition: Inpatient for presumptive acalculous cholecystitis.
--- NOTE | 2019-05-03 14:43 | PN ---
Progress Note - Progress Note Date of Service: 05/03/19 SOAP: Subjective: [] ruq pain, "hungry, can I Have liquids?" Objective: [] he is undergoing dialysis, abdomen soft, tender ruq, no signs of peritonotis Laboratory Last Values WBC 5.2 10^3/uL (3.5-10.8) 05/02/19 23:45 RBC 2.89 10^6 /uL (4.18-5.48) L 05/02/19 23:45 Hgb 9.1 g/dL (14.0-18.0) L 05/02/19 23:45 Hct 27 % (42-52) L 05/02/19 23:45 MCV 94 fL (80-94) 05/02/19 23:45 MCH 31 pg (27-31) 05/02/19 23:45 MCHC 33 g/dL (31-36) 05/02/19 23:45 RDW 18 % (10-15) H 05/02/19 23:45 Plt Count 177 10^3/uL (150-450) 05/02/19 23:45 MPV 8.3 fL (7.4-10.4) 05/02/19 23:45 Neut % (Auto) 68.6 % 05/02/19 23:45 Lymph % (Auto) 14.3 % 05/02/19 23:45 Pratt % (Auto) 11.0 % 05/02/19 23:45 Eos % (Auto) 4.8 % 05/02/19 23:45 Baso % (Auto) 1.3 % 05/02/19 23:45 Absolute Neuts (auto) 3.5 10^3/ul (1.5-7.7) 05/02/19 23:45 Absolute Lymphs (auto) 0.7 10^3/ul (1.0-4.8) L 05/02/19 23:45 Absolute Monos (auto) 0.6 10^3/ul (0-0.8) 05/02/19 23:45 Absolute Eos (auto) 0.2 10^3/ul (0-0.6) 05/02/19 23:45 Absolute Basos (auto) 0.1 10^3/ul (0-0.2) 05/02/19 23:45 Absolute Nucleated RBC 0.0 10^3/ul 05/02/19 23:45 Nucleated RBC % 0.0 05/02/19 23:45 Sodium 136 mmol/L (135-145) 05/02/19 20:59 Potassium 4.7 mmol/L (3.5-5.0) 05/02/19 20:59 Chloride 97 mmol/L (101-111) L 05/02/19 20:59 Carbon Dioxide 27 mmol/L (22-32) 05/02/19 20:59 Anion Gap 12 mmol/L (2-11) H 05/02/19 20:59 BUN 64 mg/dL (6-24) H 05/02/19 20:59 Creatinine 13.20 mg/dL (0.67-1.17) H 05/02/19 20:59 Est GFR ( Amer) 5.3 (>60) 05/02/19 20:59 Est GFR (Non-Af Amer) 4.4 (>60) 05/02/19 20:59 BUN/Creatinine Ratio 4.8 (8-20) L 05/02/19 20:59 Glucose 72 mg/dL (70-100) 05/02/19 20:59 Calcium 7.3 mg/dL (8.6-10.3) L 05/02/19 20:59 Iron 83 ug/dL (50-212) 05/03/19 09:46 TIBC 262 mcg/dL (250-450) 05/02/19 20:55 % Saturation TNP 05/02/19 20:55 Unsat Iron Binding TNP 05/02/19 20:55 Transferrin 187 mg/dL (203-362) L 05/02/19 20:55 Ferritin 619.0 ng/mL (24-336) H 05/02/19 20:55 Total Bilirubin 0.70 mg/dL (0.2-1.0) 05/02/19 20:59 AST 20 U/L (13-39) 05/02/19 20:59 ALT 18 U/L (7-52) 05/02/19 20:59 Alkaline Phosphatase 81 U/L (34-104) 05/02/19 20:59 C-Reactive Protein 33.47 mg/L (<8.01) H 05/02/19 20:59 Total Protein 7.8 g/dL (6.4-8.9) 05/02/19 20:59 Albumin 4.6 g/dL (3.2-5.2) 05/02/19 20:59 Globulin 3.2 g/dL (2-4) 05/02/19 20:59 Albumin/Globulin Ratio 1.4 (1-3) 05/02/19 20:59 Lipase 117 U/L (11.0-82.0) H 05/02/19 20:59 Assessment: []abdominal pain, ? gb etiology, no stones or sludge, Plan: []conservative treatment, IV abx, serial exams full consult note to follow
[2019-05-03] MEDS ORDERED: Zosyn per Pharmacy* NOTE FOLLOW UP SCH (15:00)
--- NOTE | 2019-05-03 16:02 | CONS ---
CC: Dr. David Orantes SURGICAL CONSULTATION NOTE: DATE OF CONSULT: 05/03/19 DATE OF ADMISSION: 05/03/19 ATTENDING SURGEON: Dr. Dre Jacobs. CHIEF COMPLAINT: Abdominal pain. HISTORY OF PRESENT ILLNESS: This is a 33-year-old male on chronic home hemodialysis for end-stage renal disease secondary to polycystic kidney disease. He has had multiple abdominal surgeries (see below). He states that beginning on 04/29/19, he began to experience right-sided abdominal pain which has been colicky in character, sometimes radiating to the right upper quadrant. He has had associated nausea and dry heaves with occasional bilious vomiting. He states that he has had some loose dark stools, but no bowel movements in the past couple of days. He denies fever or chills. He states that symptoms seem to be worse with eating and in particular with greasy food. He did try to eat on Wednesday, but did not eat much of anything on Wednesday and has been n.p.o. since admission. He states that his pain at the present time is 5/10, but at its peak is as high as 8-9/10. He has only required 1 dose of morphine 2 mg IV for pain management since admission. We were asked to consult for the acute problem. He was seen in February by Dr. Castro for what appeared to be a partial small bowel obstruction which resolved with conservative measures. He states that the current episode is different. The patient has not experienced any similar pain to the present illness in the past. PAST MEDICAL HISTORY: End-stage renal disease, on chronic hemodialysis as noted above. He is status post 2 failed renal transplant surgeries (his home dialysis is performed via right femoral access, whereas he is currently utilizing a left upper extremity fistula for in-house dialysis). He has chronic anemia. He is hypoparathyroid status post parathyroidectomy many years ago. He manages this fairly well medically and has not been symptomatic of late. He has some left lower extremity neuropathy for which a neurology consult is pending, though not scheduled in the near future. He has a chronic mid abdominal wound in part related to scarring and multiple previous surgeries and in part related to him "picking at it while he is asleep." This is per his fiancee who is present for his interview and exam. PAST SURGICAL HISTORY: Multiple dialysis access procedures including vascular access, peritoneal dialysis catheter placement, revision and subsequent removal , laparoscopic converted to open appendectomy with lysis of adhesions in 2012, parathyroidectomy. CURRENT MEDICATIONS: 1. Calcitriol 1 mcg b.i.d. 2. Calcium carbonate 1500 mg 4 times a day. 3. Epogen injection twice weekly. DRUG ALLERGIES: BEE STINGS (anaphylactic shock), IV CONTRAST (anaphylactic shock), VANCOMYCIN (red man syndrome), PENICILLIN (the patient is unsure of why this is on his record, he states that he has taken oxacillin and amoxicillin in the past without reaction), CEPHAZOLIN and CEPHALEXIN both have caused hives. FAMILY HISTORY: See history and physical. SOCIAL HISTORY: See history and physical. REVIEW OF SYSTEMS: No additions to above. See admission history and physical. PHYSICAL EXAM: Height 5 feet 2 inches, weight 150 pounds. T-max 99.1, temperature this morning 97.4, blood pressure 151/87, pulse 76, respirations 17 , room air saturation 100%. General: Well-nourished, well-developed male, in no acute distress. He is sitting up in the recliner, undergoing hemodialysis. Skin: Warm and dry. No suspicious rashes or lesions. However, there is a chronic appearing hypertrophic wound in the mid abdomen around the umbilicus from which there is no appreciable erythema, tenderness, or drainage expressible or otherwise. He has a Mepilex dressing in place over the wound at present. HEENT: Pupils equal, round, and reactive. EOMs intact. Conjunctivae pink. Oropharynx: Mucous membranes dry. No intraoral lesions. Teeth in good repair. Neck: Surgical scars, chronic left supraclavicular swelling related to occlusion of prior vascular access. No tenderness. No palpable lymphadenopathy. Heart: Regular rate and rhythm. No murmur appreciated. Lungs: Clear to auscultation. No rales or wheezes. Abdomen: Mid abdominal wound as described above. Bowel sounds are present and normal. Abdomen is soft. There is tenderness in the mid epigastrium and right upper quadrant and to a lesser degree in the right lower quadrant. There are no peritoneal signs. The lower abdomen and left lower quadrant are without tenderness. There are no palpable hernias. No CVA tenderness. Genitalia not examined other than no groin hernias noted. Rectal: Not done. Back: No spinous process or CVA tenderness. Extremities: Left upper extremity AV fistula and no edema of the lower extremities at present time. Neurological: Not specifically tested. Recent history of left lower extremity neuropathy. DIAGNOSTIC STUDIES/LAB DATA: Labs from last evening include chloride of 97, BUN and creatinine of 64 and 13.2, calcium of 7.3 which is consistent with his usual. CRP of 33 which is elevated compared with CRP from 04/30/19 of 18. Lipase elevated at 117 (upper limit of normal 82), this is versus lipase of 127 on 04/30/19. CBC: White blood cell count 5200 up from 4600 on 04/30/19, hemoglobin 9.1, hematocrit 27. Imaging studies were reviewed personally including CT from 04/30/19 which was a noncontrast study. This was relatively unremarkable with a small amount of ascites and numerous abdominal wall collateral vessels, but no other significant acute changes, though limited study secondary to noncontrast. Ultrasound from the same date did not show gallstones, but did show gallbladder wall thickening at 8 mm with trace pericholecystic fluid, common duct was normal at 3 to 4 mm. IMPRESSION: Possible acalculous cholecystitis. PLAN: The case was discussed with Dr. Jacobs and hospitalist PA, Alistair Desir. Recommendation at this point would be to treat with IV antibiotics and serial exams. A HIDA scan could be entertained, though at this point I do not think that would change recommendations for treatment. Dr. Jacobs will also see the patient for confirmation of findings and recommendations. We will follow with you while the patient is in house. At this point, there is no immediate or urgent need for surgical intervention. JUAN AGUILAR [id number]/[facility] #: [id number] MTDJennifer
[2019-05-03] MEDS ORDERED: Piperacillin/Tazobac ADVAN(*) 3.375 GM in NS 0.9% 100 ML* 100 ML IVPB ONE (16:30)
[2019-05-03] MEDS: ZOSYN 3.375 GM Q12H per EXTENDED INFUSION IVPB SCH ×2 (21:46)
[2019-05-04] MEDS: Morphine INJ* 2 MG/ML 1 ML SYRINGE (TWO MG - NEW SYRINGE VERSION) IV PRN (03:38)
[2019-05-04] MEDS: Heparin VIAL(*) 5000 UNITS/ML VIAL (FIVE THOUSAND) SUBCUT SCH ×3 (05:25→21:52)
[2019-05-04 06:28] LABS: ABS Basophils 0.1 10^3/ul (0-0.2); ABS Eosinophils 0.2 10^3/ul (0-0.6); ABS Lymphocytes 0.7 10^3/ul (1.0-4.8); ABS Monocytes 0.5 10^3/ul (0-0.8); ABS Neutrophils 1.7 10^3/ul (1.5-7.7); Eosinophil % 5.7 %; Hematocrit 26 % (42-52); Hemoglobin 8.8 g/dL (14.0-18.0); Lymphocyte % 22.3 %; Mean Corpuscular HGB Conc 33 g/dL (31-36); Mean Corpuscular Hemoglobin 32 pg (27-31); Mean Corpuscular Volume 95 fL (80-94); Mean Platelet Volume 8.2 fL (7.4-10.4); Nucleated Red Blood Cells % 0.1; Platelet Count 164 10^3/uL (150-450); Red Blood Count 2.78 10^6 /uL (4.18-5.48); Red Cell Distribution Width 17 % (10-15); White Blood Count 3.2 10^3/uL (3.5-10.8)
[2019-05-04 06:54] LABS: Albumin 4.2 g/dL (3.2-5.2); Albumin/Globulin Ratio 1.4 (1-3); BUN/Creatinine Ratio 3.9 (8-20); Calcium 8.5 mg/dL (8.6-10.3); EGFR African American 8.3 (>60); EGFR Non-African American 6.8 (>60); Globulin 3.1 g/dL (2-4); Indirect Bilirubin 0.9 mg/dL (0.3-1.0); Potassium 4.6 mmol/L (3.5-5.0); Total Bilirubin 1.1 mg/dL (0.2-1.0); Total Protein 7.3 g/dL (6.4-8.9)
[2019-05-04] MEDS: HYDROmorphone INJ1* 1 MG/ML SYRINGE IV SLOW PU PRN ×3 (08:17→16:25)
[2019-05-04] MEDS: ZOSYN 3.375 GM Q12H per EXTENDED INFUSION IVPB SCH ×6 (10:16→23:42)
--- NOTE | 2019-05-04 11:36 | PN ---
Progress Note - Progress Note Date of Service: 05/04/19 Note: Surgery Progress: S: states he feels about the same: still sig RUQ pain (has used one dose of Dilaudid 0.5 mg). Denies N/V. Would like to eat. Had hard stool last pm w/ some blood in toilet water. O: Vital Signs - 8 hr 05/04/19 05/04/19 05/04/19 03:38 04:00 05:29 Temperature 97.8 F Pulse Rate 71 Respiratory 16 18 16 Rate Blood Pressure 121/64 (mmHg) O2 Sat by Pulse 100 Oximetry 05/04/19 05/04/19 05/04/19 07:57 08:17 09:17 Temperature 98.2 F Pulse Rate 74 Respiratory 16 16 14 Rate Blood Pressure 120/72 (mmHg) O2 Sat by Pulse 99 Oximetry Intake and Output Last 24 Hours 05/02/19 05/03/19 05/04/19 05/05/19 06:59 06:59 06:59 06:59 Intake Total 263 Balance 263 Weight 150 lb Intake: IV Fluids 35 NS (0.9%) 20 Zosyn 15 IVPB 228 Zosyn 228 Oral 0 Other: # Bowel Movements 1 # Voids 0 Gen: sitting up at side of bed; NAD Heart: reg Lungs: clear Abd: +BS; soft; mild to moderate tenderness RUQ; no peritoneal signs Lab: Laboratory Tests 05/04/19 05/04/19 05/04/19 06:16 06:16 06:16 WBC 3.2 L Hgb 8.8 L Lactic Acid 0.6 Total Bilirubin 1.10 H AST 17 ALT 14 Alkaline Phosphatase 69 A: prob acalculous cholecystitis, stable P: discussed w/ [facility] hosp [facility] [place]; will try low fat diet; cont IV abx
--- NOTE | 2019-05-04 13:34 | PN ---
Subjective Date of Service: 05/04/19 Interval History: Patient has persistent, unchanged right sided abdominal pain. Patient no longer has diarrhea and had one difficult BM which exacerbated his abdominal pain. Patient denies F/C, N/V, CP, SOB, dizziness, or other pain. Patient makes no urine. Patient has no nausea and is hungry. Family History: Unchanged from Admission Social History: Unchanged from Admission Past Medical History: Unchanged from Admission Objective Active Medications: Acetaminophen (Tylenol Tab*) 650 mg PO Q6H PRN PRN Reason: PAIN - MILD Last Admin: 05/03/19 02:42 Dose: 650 mg Heparin Sodium (Porcine) (Heparin Vial(*)) 5,000 units SUBCUT Q8HR [facility] Last Admin: 05/04/19 05:25 Dose: 5,000 units Hydromorphone HCl (Dilaudid Inj1s*) 0.5 mg IV SLOW PU Q3H PRN PRN Reason: PAIN - SEVERE Last Admin: 05/04/19 12:22 Dose: 0.5 mg Piperacillin Sod/Tazobactam (Sod 3.375 gm/ Sodium Chloride) 100 mls @ 25 mls/ hr IVPB Q12H [facility] Last Admin: 05/04/19 10:16 Dose: 25 mls/hr Ondansetron HCl (Zofran Inj*) 4 mg IV Q6H PRN PRN Reason: NAUSEA Pharmacy Consult (Zosyn Per Pharmacy*) 1 note FOLLOW UP .ZOSYN PER PHARMACY [facility] Vital Signs - 8 hr 05/04/19 05/04/19 05/04/19 05:29 07:57 08:17 Temperature 98.2 F Pulse Rate 74 Respiratory 16 16 16 Rate Blood Pressure 120/72 (mmHg) O2 Sat by Pulse 99 Oximetry 05/04/19 05/04/19 05/04/19 09:17 12:00 12:22 Temperature 98.1 F Pulse Rate 72 Respiratory 14 16 18 Rate Blood Pressure 139/78 (mmHg) O2 Sat by Pulse 100 Oximetry Oxygen Devices in Use Now: None Appearance: Patient is a 33yo male who appears older than stated age and is sitting in the bed in NAD. Eyes: No Scleral Icterus, PERRLA Ears/Nose/Mouth/Throat: NL Teeth, Lips, Gums, Clear Oropharnyx, Mucous Membranes Moist Neck: NL Appearance and Movements; NL JVP, Trachea Midline Respiratory: Symmetrical Chest Expansion and Respiratory Effort, Clear to Auscultation Cardiovascular: NL Sounds; No Murmurs; No JVD, RRR, No Edema Abdominal: No Hepatosplenomegaly, - - Stable wound, Tender to any palpation on right side of abdomen. Lymphatic: No Cervical Adenopathy Skin: No Nodules or Sclerosis, - - Numerous surgical scars. Neurological: Alert and Oriented x 3, NL Sensation, NL Muscle Strength and Tone , - - CN II-XII intact. Result Diagrams: 05/04/19 06:16 05/04/19 06:16 Microbiology and Other Data: Microbiology 05/03/19 03:15 Nasal Screen MRSA (PCR) - Final Nasal Mrsa Not Detected Assess/Plan/Problems-Billing Assessment: Patient is a 33yo male with PCKD S/P 2 renal transplants, on HD who is here with abdominal pain, nausea, and diarrhea. Patient is presumptively diagnosed with acalculous cholecystitis. - Patient Problems (1) Abdominal pain Current Visit: Yes Status: Acute Code(s): R10.9 - UNSPECIFIED ABDOMINAL PAIN SNOMED Code(s): 82812303 Comment: - Pain to me appears to be in right lower quadrant. Exacerbated with movements and certain food. - No Nausea, Advance diet. - Localized gallbladder thickening could just be from ascites. - He has no CBD enlargement from most recent US and no cholestasis pattern. His lipase is slightly elevated at his established baseline. Appreciate surgery input, presumptive diagnosis of acalculous cholecystitis. - Treat with antibiotics - Current conservative management, Opiate Pain medication. - History SBO with no SBO on recent CT A/P (2) Polycystic kidney disease Current Visit: No Status: Acute Code(s): Q61.3 - POLYCYSTIC KIDNEY, UNSPECIFIED SNOMED Code(s): 90150018 Comment: - On home HD, dialysis today. (3) DVT prophylaxis Current Visit: No Status: Acute Code(s): HDC2706 - SNOMED Code(s): 261837347 Comment: - Ambulation (4) Full code status Current Visit: No Status: Acute Code(s): Z78.9 - OTHER SPECIFIED HEALTH STATUS SNOMED Code(s): 055974621 Status and Disposition: Inpatient for presumptive acalculous cholecystitis. Possible D/C when able to tolerate diet and decreased pain.
[2019-05-05] MEDS: HYDROmorphone INJ1* 1 MG/ML SYRINGE IV SLOW PU PRN ×8 (00:49→20:03)
[2019-05-05] MEDS: ZOSYN 3.375 GM Q12H per EXTENDED INFUSION IVPB SCH ×4 (01:10→15:40)
[2019-05-05] MEDS: Heparin VIAL(*) 5000 UNITS/ML VIAL (FIVE THOUSAND) SUBCUT SCH ×3 (05:46→21:44)
[2019-05-05] MEDS ORDERED: Senna TAB 8.6 mg* TAB PO PRN (09:33)
[2019-05-05 09:47] LABS: Hematocrit 29 % (42-52); Hemoglobin 9.7 g/dL (14.0-18.0); Mean Corpuscular HGB Conc 33 g/dL (31-36); Mean Corpuscular Hemoglobin 32 pg (27-31); Mean Corpuscular Volume 95 fL (80-94); Red Blood Count 3.08 10^6 /uL (4.18-5.48); Red Cell Distribution Width 17 % (10-15)
[2019-05-05 09:59] LABS: BUN/Creatinine Ratio 4.7 (8-20); Calcium 7.9 mg/dL (8.6-10.3); EGFR African American 6.2 (>60); EGFR Non-African American 5.1 (>60); Magnesium 2.1 mg/dL (1.9-2.7)
[2019-05-05 10:00] LABS: Potassium 5.1 mmol/L (3.5-5.0)
[2019-05-05 10:02] LABS: White Blood Count 4.4 10^3/uL (3.5-10.8)
[2019-05-05 10:13] LABS: Mean Platelet Volume 9.2 fL (7.4-10.4); Platelet Count 190 10^3/uL (150-450)
[2019-05-05] MEDS ORDERED: EPOETIN ALFA-EPBX * 10,000 UNIT/ML VIAL IV ONE (12:15)
--- NOTE | 2019-05-05 12:46 | PN ---
Subjective Date of Service: 05/05/19 Interval History: Patient states the pain in his abdomen has gotten worse. Patient states the triggers remain the same, being walking and straining from BMs. Discussed patient's case with dialysis nurse who is familiar with him and states that he has had a significant functional decline related to painful peripheral neuropathy of unclear cause. Patient denies F/C, N/V, CP, SOB, dizziness, cough , or other pain. Family History: Unchanged from Admission Social History: Unchanged from Admission Past Medical History: Unchanged from Admission Objective Active Medications: Acetaminophen (Tylenol Tab*) 650 mg PO Q6H PRN PRN Reason: PAIN - MILD Last Admin: 05/03/19 02:42 Dose: 650 mg Heparin Sodium (Porcine) (Heparin Vial(*)) 5,000 units SUBCUT Q8HR [facility] Last Admin: 05/05/19 05:46 Dose: 5,000 units Heparin Sodium (Porcine) (Heparin Dialysis Only(*)) 3,000 units DIALYSIS ONCE ONE Stop: 05/05/19 13:01 Hydromorphone HCl (Dilaudid Inj1s*) 0.5 mg IV SLOW PU Q2H PRN PRN Reason: PAIN - SEVERE Last Admin: 05/05/19 10:21 Dose: 0.5 mg Piperacillin Sod/Tazobactam (Sod 3.375 gm/ Sodium Chloride) 100 mls @ 25 mls/ hr IVPB 0000,1200 [facility] Ondansetron HCl (Zofran Inj*) 4 mg IV Q6H PRN PRN Reason: NAUSEA Pharmacy Consult (Zosyn Per Pharmacy*) 1 note FOLLOW UP .ZOSYN PER PHARMACY [facility] Polyethylene Glycol/Electrolytes (Miralax*) 17 gm PO DAILY PRN PRN Reason: CONSTIPATION Senna (Senokot 8.6 Mg Tab*) 1 tab PO DAILY PRN PRN Reason: CONSTIPATION Vital Signs - 8 hr 05/05/19 05/05/19 05/05/19 06:17 07:00 07:32 Temperature 97.5 F Pulse Rate 80 Respiratory 18 20 18 Rate Blood Pressure 133/89 (mmHg) O2 Sat by Pulse 100 Oximetry 05/05/19 05/05/19 05/05/19 08:00 08:32 10:21 Temperature Pulse Rate Respiratory 17 17 20 Rate Blood Pressure (mmHg) O2 Sat by Pulse Oximetry 05/05/19 05/05/19 11:00 11:30 Temperature 97.6 F Pulse Rate 92 Respiratory 18 18 Rate Blood Pressure 147/87 (mmHg) O2 Sat by Pulse 100 Oximetry Oxygen Devices in Use Now: None Appearance: Patient is a 33yo male who appears older than stated age and is sitting in the bed in NAD. Eyes: No Scleral Icterus, PERRLA Ears/Nose/Mouth/Throat: NL Teeth, Lips, Gums, Clear Oropharnyx, Mucous Membranes Moist Neck: NL Appearance and Movements; NL JVP, Trachea Midline Respiratory: Symmetrical Chest Expansion and Respiratory Effort, Clear to Auscultation Cardiovascular: NL Sounds; No Murmurs; No JVD, RRR, No Edema Abdominal: No Hepatosplenomegaly, - - Tender to palpation in RUQ Lymphatic: No Cervical Adenopathy Extremities: No Edema, No Clubbing, Cyanosis Skin: No Nodules or Sclerosis, - - Extensive surgical scars. Neurological: Alert and Oriented x 3, NL Sensation, NL Muscle Strength and Tone , - - CN II-XII intact. Result Diagrams: 05/05/19 09:15 05/05/19 09:15 Microbiology and Other Data: Microbiology 05/03/19 03:15 Nasal Screen MRSA (PCR) - Final Nasal Mrsa Not Detected Assess/Plan/Problems-Billing Assessment: Patient is a 33yo male with PCKD S/P 2 renal transplants, on HD who is here with abdominal pain, nausea, and diarrhea. Patient is presumptively diagnosed with acalculous cholecystitis. - Patient Problems (1) Abdominal pain Current Visit: Yes Status: Acute Code(s): R10.9 - UNSPECIFIED ABDOMINAL PAIN SNOMED Code(s): 20360681 Comment: - Pain to me appears to be in right upper quadrant now. Exacerbated with movements and certain food before coming in. - No Nausea, Tolerating diet, avoid fat. - Localized gallbladder thickening could just be from ascites. - He has no CBD enlargement from most recent US and no cholestasis pattern. His lipase is slightly elevated at his established baseline. Appreciate surgery input, presumptive diagnosis of acalculous cholecystitis. - Treat with antibiotics - Current conservative management, Opiate Pain medication. - History SBO with no SBO on recent CT A/P - With worsening, discussed additional/repeat imaging with surgery. (2) Peripheral neuropathy Current Visit: Yes Status: Acute Code(s): G62.9 - POLYNEUROPATHY, UNSPECIFIED SNOMED Code(s): 368644031 Comment: - Complaints of, painful and limiting functional capacity. - Check B12, A1c, SPEP - Address treatment with neuropathic specific pain meds when acute episode has passed. (3) Polycystic kidney disease Current Visit: No Status: Acute Code(s): Q61.3 - POLYCYSTIC KIDNEY, UNSPECIFIED SNOMED Code(s): 21210331 Comment: - On home HD, dialysis today. (4) DVT prophylaxis Current Visit: No Status: Acute Code(s): TWM2083 - SNOMED Code(s): 191757074 Comment: - Ambulation (5) Full code status Current Visit: No Status: Acute Code(s): Z78.9 - OTHER SPECIFIED HEALTH STATUS SNOMED Code(s): 289288435 Status and Disposition: Inpatient for presumptive acalculous cholecystitis. Possible D/C when able to tolerate diet and decreased pain.
[2019-05-05] MEDS ORDERED: Heparin DIALYSIS ONLY(*) 1,000 UNITS/ML VIAL DIALYSIS ONE (13:00)
--- NOTE | 2019-05-05 14:39 | PN ---
Progress Note - Progress Note Date of Service: 05/05/19 Note: Surgery Progress: S: Patient states he feels about the same. Req dilaudid q 2-3 h, though states it doesn't help. Allie diet, which doesn't seem to exacerbate his current pain. No BM > 24 hr. Feels constipated. Hurts to strain. Dr. Castro also in to see; not sure this is gallbladder related. O: Vital Signs - 8 hr 05/05/19 05/05/19 05/05/19 07:00 07:32 08:00 Temperature 97.5 F Pulse Rate 80 Respiratory 20 18 17 Rate Blood Pressure 133/89 (mmHg) O2 Sat by Pulse 100 Oximetry 05/05/19 05/05/19 05/05/19 08:32 10:21 11:00 Temperature 97.6 F Pulse Rate 92 Respiratory 17 20 18 Rate Blood Pressure 147/87 (mmHg) O2 Sat by Pulse 100 Oximetry Intake and Output Last 24 Hours 05/03/19 05/04/19 05/05/19 05/06/19 06:59 06:59 06:59 06:59 Intake Total 263 470 360 Balance 263 470 360 Weight 150 lb Intake: IV Fluids 35 NS (0.9%) 20 Zosyn 15 IVPB 228 110 Zosyn 228 Oral 0 360 360 Other: # Bowel Movements 1 0 # Voids 0 0 Gen: sitting up in chair; NAD Heart: reg Lungs: clear ant Abd: soft; moderate RUQ tenderness, slightly increased vs 9/5. Remainder of abd soft, nontender. Labs: CBC, BMP ok A/P: RUQ pain, possible acalculous cholecystits, stable, but lacking improvement on IV abx Discussed w/ Dr. Castro. He advised CT w/ contrast for further definition and spoke w/ [facility].
[2019-05-05] MEDS: Polyethylene Glycol 3350* 17 GM PACKET PO PRN (15:41)
[2019-05-06] MEDS: HYDROmorphone INJ1* 1 MG/ML SYRINGE IV SLOW PU PRN ×6 (00:31→22:12)
[2019-05-06] MEDS: ZOSYN 3.375 GM Q12H per EXTENDED INFUSION IVPB SCH ×4 (00:31→12:28)
[2019-05-06] MEDS: Heparin VIAL(*) 5000 UNITS/ML VIAL (FIVE THOUSAND) SUBCUT SCH ×3 (05:30→22:12)
[2019-05-06 08:11] LABS: ABS Eosinophils 0.2 10^3/ul (0-0.6); ABS Lymphocytes 0.6 10^3/ul (1.0-4.8); ABS Monocytes 0.6 10^3/ul (0-0.8); ABS Neutrophils 2.8 10^3/ul (1.5-7.7); Eosinophil % 4.5 %; Hematocrit 27 % (42-52); Lymphocyte % 13.7 %; Mean Corpuscular HGB Conc 33 g/dL (31-36); Mean Corpuscular Hemoglobin 32 pg (27-31); Mean Corpuscular Volume 95 fL (80-94); Mean Platelet Volume 8.5 fL (7.4-10.4); Platelet Count 193 10^3/uL (150-450); Red Blood Count 2.83 10^6 /uL (4.18-5.48); Red Cell Distribution Width 17 % (10-15); White Blood Count 4.2 10^3/uL (3.5-10.8)
[2019-05-06 08:23] LABS: Albumin 4.4 g/dL (3.2-5.2); Albumin/Globulin Ratio 1.4 (1-3); BUN/Creatinine Ratio 4.6 (8-20); Calcium 8.3 mg/dL (8.6-10.3); EGFR Non-African American 8.3 (>60); Globulin 3.2 g/dL (2-4); Magnesium 1.9 mg/dL (1.9-2.7); Potassium 4.4 mmol/L (3.5-5.0); Total Bilirubin 0.6 mg/dL (0.2-1.0); Total Protein 7.6 g/dL (6.4-8.9)
[2019-05-06] MEDS ORDERED: HYDROmorphone INJ1* 1 MG/ML SYRINGE IV SLOW PU PRN ×2 (09:05→14:15)
--- NOTE | 2019-05-06 14:21 | PN ---
Subjective Date of Service: 05/06/19 Interval History: Patient has pain in abdomen. Patient states pain is unchanged from previous day , patient has minimal help from his pain medications. Patient denies F/C, N/V, chest pain, shortness of breath. Patient today describes "neuropathic" pain from previous day's note as a pain raditing down leg, associated with numbness and tingling worse with walking, and better with rest. Occasionally severe. Family History: Unchanged from Admission Social History: Unchanged from Admission Past Medical History: Unchanged from Admission Objective Active Medications: Acetaminophen (Tylenol Tab*) 650 mg PO Q6H PRN PRN Reason: PAIN - MILD Last Admin: 05/03/19 02:42 Dose: 650 mg Heparin Sodium (Porcine) (Heparin Vial(*)) 5,000 units SUBCUT Q8HR [facility] Last Admin: 05/06/19 05:30 Dose: 5,000 units Hydromorphone HCl (Dilaudid Inj1s*) 1 mg IV SLOW PU Q2H PRN PRN Reason: PAIN - SEVERE Last Admin: 05/06/19 10:36 Dose: 1 mg Piperacillin Sod/Tazobactam (Sod 3.375 gm/ Sodium Chloride) 100 mls @ 25 mls/ hr IVPB 0000,1200 COUNTS INCLUDE 234 BEDS AT THE [facility] Last Admin: 05/06/19 12:28 Dose: 25 mls/hr Ondansetron HCl (Zofran Inj*) 4 mg IV Q6H PRN PRN Reason: NAUSEA Pharmacy Consult (Zosyn Per Pharmacy*) 1 note FOLLOW UP .ZOSYN PER PHARMACY COUNTS INCLUDE 234 BEDS AT THE [facility] Polyethylene Glycol/Electrolytes (Miralax*) 17 gm PO DAILY PRN PRN Reason: CONSTIPATION Last Admin: 05/05/19 15:41 Dose: 17 gm Senna (Senokot 8.6 Mg Tab*) 1 tab PO DAILY PRN PRN Reason: CONSTIPATION Vital Signs - 8 hr 05/06/19 05/06/19 05/06/19 07:00 08:00 08:48 Temperature 98.4 F Pulse Rate 82 Respiratory 16 16 18 Rate Blood Pressure 120/51 (mmHg) O2 Sat by Pulse 100 Oximetry 05/06/19 05/06/19 05/06/19 10:17 10:36 11:00 Temperature 96.6 F Pulse Rate 86 Respiratory 16 16 16 Rate Blood Pressure 119/77 (mmHg) O2 Sat by Pulse 100 Oximetry 05/06/19 11:40 Temperature Pulse Rate Respiratory 16 Rate Blood Pressure (mmHg) O2 Sat by Pulse Oximetry Oxygen Devices in Use Now: None Appearance: Patient is a 33yo male who appears stated age and is sitting in the bed in NAD. Eyes: No Scleral Icterus, PERRLA Ears/Nose/Mouth/Throat: NL Teeth, Lips, Gums, Clear Oropharnyx, Mucous Membranes Moist Neck: NL Appearance and Movements; NL JVP, Trachea Midline Respiratory: Symmetrical Chest Expansion and Respiratory Effort, Clear to Auscultation Cardiovascular: NL Sounds; No Murmurs; No JVD, RRR, No Edema Abdominal: No Hepatosplenomegaly, - - Very tender to palpation over RUQ. Positive Gonzalez's sign. Lymphatic: No Cervical Adenopathy Extremities: No Clubbing, Cyanosis Skin: No Nodules or Sclerosis, - - Numerous surgical scars. Neurological: Alert and Oriented x 3, NL Sensation, NL Muscle Strength and Tone , - - CN II-XII intact. Positive SLR on left side. Result Diagrams: 05/06/19 07:40 05/06/19 07:40 Microbiology and Other Data: Microbiology 05/03/19 03:15 Nasal Screen MRSA (PCR) - Final Nasal Mrsa Not Detected Assess/Plan/Problems-Billing Assessment: Patient is a 33yo male with PCKD S/P 2 renal transplants, on HD who is here with abdominal pain, nausea, and diarrhea. Patient is presumptively diagnosed with acalculous cholecystitis. - Patient Problems (1) Abdominal pain Current Visit: Yes Status: Acute Code(s): R10.9 - UNSPECIFIED ABDOMINAL PAIN SNOMED Code(s): 88941756 Comment: - Pain to me appears to be in right upper quadrant now. Exacerbated with movements and certain food before coming in. - No Nausea, Tolerating diet, avoid fat. - Localized gallbladder thickening could just be from ascites. - He has no CBD enlargement from most recent US and no cholestasis pattern. His lipase is slightly elevated at his established baseline. Appreciate surgery input, presumptive diagnosis of acalculous cholecystitis. - Treat with antibiotics - Current conservative management, Opiate Pain medication. - History SBO with no SBO on recent CT A/P - HIDA scan pending, available on Wednesday. (2) Radiculopathy Current Visit: Yes Status: Acute Code(s): M54.10 - RADICULOPATHY, SITE UNSPECIFIED SNOMED Code(s): 88781566 Comment: - Neuropathic pain today sounds more like radiculopathy - Positive SLR on left. - PT/OT, pain control, may need outpatient referral to neurosurgery if not responsive to conservative measures. (3) Polycystic kidney disease Current Visit: No Status: Acute Code(s): Q61.3 - POLYCYSTIC KIDNEY, UNSPECIFIED SNOMED Code(s): 93371015 Comment: - On home HD. (4) DVT prophylaxis Current Visit: No Status: Acute Code(s): GEM2569 - SNOMED Code(s): 103873813 Comment: - Ambulation (5) Full code status Current Visit: No Status: Acute Code(s): Z78.9 - OTHER SPECIFIED HEALTH STATUS SNOMED Code(s): 492458529 Status and Disposition: Inpatient for presumptive acalculous cholecystitis. Possible D/C when able to tolerate diet and decreased pain.
[2019-05-07] MEDS: ZOSYN 3.375 GM Q12H per EXTENDED INFUSION IVPB SCH ×6 (00:34→23:47)
[2019-05-07] MEDS: HYDROmorphone INJ1* 1 MG/ML SYRINGE IV SLOW PU PRN ×7 (00:35→23:14)
[2019-05-07] MEDS: Polyethylene Glycol 3350* 17 GM PACKET PO PRN (02:06)
[2019-05-07] MEDS: Heparin VIAL(*) 5000 UNITS/ML VIAL (FIVE THOUSAND) SUBCUT SCH ×3 (06:01→23:14)
[2019-05-07] MEDS: Calcium Carbonate CHEW TAB* 500 MG (TUMS) PO SCH ×3 (12:11→21:23)
--- NOTE | 2019-05-07 12:51 | PN ---
Subjective Date of Service: 05/07/19 Interval History: Patient's pain is much better controlled with dilaudid at higher dose. Patient states the pain has been exacerbated by spicy and acidic foods in the past day. Patient denies F/C, N/V, CP, SOB. Patient has persistent radicular pain in Left Leg. Family History: Unchanged from Admission Social History: Unchanged from Admission Past Medical History: Unchanged from Admission Objective Active Medications: Acetaminophen (Tylenol Tab*) 650 mg PO Q6H PRN PRN Reason: PAIN - MILD Last Admin: 05/03/19 02:42 Dose: 650 mg Calcitriol (Rocaltrol Cap*) 1 mcg PO BID [facility] Calcium Carbonate (Tums*) 1,500 mg PO QID [facility] Last Admin: 05/07/19 12:11 Dose: 1,500 mg Heparin Sodium (Porcine) (Heparin Vial(*)) 5,000 units SUBCUT Q8HR [facility] Last Admin: 05/07/19 06:01 Dose: 5,000 units Hydromorphone HCl (Dilaudid Inj1s*) 2 mg IV SLOW PU Q2H PRN PRN Reason: PAIN - SEVERE Last Admin: 05/07/19 12:10 Dose: 2 mg Piperacillin Sod/Tazobactam (Sod 3.375 gm/ Sodium Chloride) 100 mls @ 25 mls/ hr IVPB 0000,1200 [facility] Last Admin: 05/07/19 12:11 Dose: 25 mls/hr Ondansetron HCl (Zofran Inj*) 4 mg IV Q6H PRN PRN Reason: NAUSEA Pharmacy Consult (Zosyn Per Pharmacy*) 1 note FOLLOW UP .ZOSYN PER PHARMACY [facility] Polyethylene Glycol/Electrolytes (Miralax*) 17 gm PO DAILY PRN PRN Reason: CONSTIPATION Last Admin: 05/07/19 02:06 Dose: 17 gm Senna (Senokot 8.6 Mg Tab*) 1 tab PO DAILY PRN PRN Reason: CONSTIPATION Vital Signs - 8 hr 05/07/19 05/07/19 05/07/19 05:54 07:00 08:00 Temperature 97.9 F Pulse Rate 91 Respiratory 18 16 16 Rate Blood Pressure 103/62 (mmHg) O2 Sat by Pulse 100 Oximetry 05/07/19 05/07/19 05/07/19 09:41 11:00 12:10 Temperature 97.7 F Pulse Rate 86 Respiratory 16 16 16 Rate Blood Pressure 113/61 (mmHg) O2 Sat by Pulse 100 Oximetry Oxygen Devices in Use Now: None Appearance: Patient is a 33yo male who appears stated age and is sitting in the bed in NAD. Eyes: No Scleral Icterus, PERRLA Ears/Nose/Mouth/Throat: NL Teeth, Lips, Gums, Clear Oropharnyx, Mucous Membranes Moist Neck: NL Appearance and Movements; NL JVP, Trachea Midline Respiratory: Symmetrical Chest Expansion and Respiratory Effort, Clear to Auscultation Cardiovascular: NL Sounds; No Murmurs; No JVD, RRR, No Edema Abdominal: NL Sounds; No Tenderness; No Distention, - - RUQ tenderness. Lymphatic: No Cervical Adenopathy Extremities: No Edema, No Clubbing, Cyanosis Skin: No Rash or Ulcers, No Nodules or Sclerosis Neurological: Alert and Oriented x 3, NL Sensation, NL Muscle Strength and Tone , - - CN II-XII intact. Result Diagrams: 05/06/19 07:40 05/06/19 07:40 Microbiology and Other Data: Microbiology 05/03/19 03:15 Nasal Screen MRSA (PCR) - Final Nasal Mrsa Not Detected Assess/Plan/Problems-Billing Assessment: Patient is a 33yo male with PCKD S/P 2 renal transplants, on HD who is here with abdominal pain, nausea, and diarrhea. Patient is presumptively diagnosed with acalculous cholecystitis. - Patient Problems (1) Abdominal pain Current Visit: Yes Status: Acute Code(s): R10.9 - UNSPECIFIED ABDOMINAL PAIN SNOMED Code(s): 15214605 Comment: - Pain in right upper quadrant now. Exacerbated with movements and certain food , particularly spicy and acidic food. Started after High Fat Meal. - No Nausea, Tolerating diet, avoid fat. - Localized gallbladder thickening could just be from ascites. - He has no CBD enlargement from most recent US and no cholestasis pattern. His lipase is slightly elevated at his established baseline. Appreciate surgery input, presumptive diagnosis of acalculous cholecystitis. - Treat with antibiotics - Current conservative management, Opiate Pain medication. - History SBO with no SBO on recent CT A/P - HIDA scan pending, available on Wednesday. - GI consult for Possible endoscopy due to possible PUD. (2) Radiculopathy Current Visit: Yes Status: Acute Code(s): M54.10 - RADICULOPATHY, SITE UNSPECIFIED SNOMED Code(s): 84769920 Comment: - Neuropathic pain today sounds more like radiculopathy - Positive SLR on left. - PT/OT, pain control, may need outpatient referral to neurosurgery if not responsive to conservative measures. (3) Polycystic kidney disease Current Visit: No Status: Acute Code(s): Q61.3 - POLYCYSTIC KIDNEY, UNSPECIFIED SNOMED Code(s): 01245603 Comment: - On home HD. (4) DVT prophylaxis Current Visit: No Status: Acute Code(s): RAC1223 - SNOMED Code(s): 022870851 Comment: - Ambulation (5) Full code status Current Visit: No Status: Acute Code(s): Z78.9 - OTHER SPECIFIED HEALTH STATUS SNOMED Code(s): 208445000 Status and Disposition: Inpatient for presumptive acalculous cholecystitis vs PUD. Possible D/C when able to tolerate diet and decreased pain.
--- NOTE | 2019-05-07 21:30 | CONS ---
CONSULTATION REPORT: DATE OF CONSULTATION: 05/07/19 REQUESTING PROVIDER: JUAN Maldonado. INDICATION: Right upper quadrant pain. NARRATIVE: Mr. Peacock is a pleasant 33-year-old gentleman who has a history of polycystic kidney disease. He has had 2 failed transplants. He does have end- stage renal disease. He is on home dialysis. The patient was admitted to the hospital on the . His pain had started a few days earlier to his right upper quadrant. He stated back then that the pain was constant in nature. He felt like somebody was sticking a knife in him. It worsened with certain movements. He also had diarrhea that began a day earlier. No blood in the stools. His appetite has been diminished. He was seen by Surgery who felt that the patient could have acalculous cholecystitis. He was placed on antibiotics and the symptoms really have not improved much. He continues to have pain at this point; however, he states that the pain has changed a little bit. Now, it is worsened by any type of acidic foods. It does come and go. It is not constant anymore. PAST MEDICAL HISTORY: Please see the HPI. PAST SURGICAL HISTORY: Includes kidney transplant x2, parathyroidectomy, appendectomy, lysis of adhesions. MEDICATIONS AT HOME: Include: 1. Epogen. 2. Calcium. 3. Calcitriol. ALLERGIES: To IV DYE, VANCOMYCIN. SOCIAL HISTORY: He denies any tobacco. No alcohol. No IV drug use. REVIEW OF SYSTEMS: All systems reviewed other than mentioned in the HPI are unremarkable. PHYSICAL EXAM: On physical exam, temperature is 97.6, blood pressure is 116/67 , pulse is 88. General: Well-appearing male, walking around the room, alert, oriented, pleasant, and fluent. HEENT: Mucous membranes are moist without lesions, ulcers, or exudates. Neck is supple. Trachea is midline. Head is normocephalic, atraumatic. Heart: Regular rate and rhythm. Lungs: Clear to auscultation. Abdomen is distended. Positive bowel sounds. Right upper quadrant tenderness to palpation, mild in nature. No rebound. No guarding. Skin is warm and dry. DIAGNOSTIC STUDIES/LAB DATA: Labs of note, white count is 4.2, hemoglobin is 9 , platelets of 193. BUN is 35, creatinine is 7.59. He does have a gallbladder ultrasound from 04/30/19, which showed no gallstones. However, trace pericholecystic fluid. Negative Gonzalez's. Localized wall edema and thickening. Abdomen and pelvis CT earlier in the day on 04/30/19, revealed atrophic kidneys , small amount of ascites, numerous abdominal collaterals. ASSESSMENT AND PLAN: This is a pleasant 33-year-old gentleman with right upper quadrant pain who felt to potentially have acalculous cholecystitis. The pain pattern has changed a little bit. The primary team is wondering if maybe this is more peptic ulcer disease than an acalculous cholecystitis. They have requested an upper endoscopy. I will make arrangements for his upper endoscopy tomorrow to further evaluate for any peptic ulcer disease, hiatal hernia, erosive esophagitis. He will remain on his antibiotics for his suspected acalculous cholecystitis and I will see him again tomorrow. [id number]/[facility] #: [id number] MTDD
[2019-05-07] MEDS: Calcitriol CAP* 0.25 MCG PO SCH (23:12)
[2019-05-08] MEDS: HYDROmorphone INJ1* 1 MG/ML SYRINGE IV SLOW PU PRN ×4 (03:14→16:15)
[2019-05-08] MEDS: Heparin VIAL(*) 5000 UNITS/ML VIAL (FIVE THOUSAND) SUBCUT SCH ×2 (05:27→16:19)
[2019-05-08] MEDS: Calcium Carbonate CHEW TAB* 500 MG (TUMS) PO SCH ×2 (08:30→16:17)
[2019-05-08] MEDS: Calcitriol CAP* 0.25 MCG PO SCH (08:30)
[2019-05-08 09:24] LABS: ABS Basophils 0.1 10^3/ul (0-0.2); ABS Eosinophils 0.2 10^3/ul (0-0.6); ABS Lymphocytes 0.7 10^3/ul (1.0-4.8); ABS Monocytes 0.6 10^3/ul (0-0.8); ABS Neutrophils 3.6 10^3/ul (1.5-7.7); Eosinophil % 4.8 %; Hematocrit 27 % (42-52); Hemoglobin 8.6 g/dL (14.0-18.0); Lymphocyte % 13.2 %; Mean Corpuscular HGB Conc 32 g/dL (31-36); Mean Corpuscular Hemoglobin 32 pg (27-31); Mean Corpuscular Volume 102 fL (80-94); Mean Platelet Volume 8.8 fL (7.4-10.4); Nucleated Red Blood Cells % 0.1; Platelet Count 196 10^3/uL (150-450); Red Blood Count 2.68 10^6 /uL (4.18-5.48); Red Cell Distribution Width 19 % (10-15); White Blood Count 5.2 10^3/uL (3.5-10.8)
[2019-05-08 09:28] LABS: Albumin 4.7 g/dL (3.2-5.2); CO2 Carbon Dioxide 22 mmol/L (22-32); Calcium 8.1 mg/dL (8.6-10.3); Chloride 99 mmol/L (101-111); Magnesium 2.1 mg/dL (1.9-2.7); Sodium 137 mmol/L (135-145)
[2019-05-08 09:34] LABS: ALT 21 U/L (7-52); Albumin/Globulin Ratio 1.6 (1-3); Alkaline Phosphatase 82 U/L (34-104); BUN/Creatinine Ratio 5.9 (8-20); Blood Urea Nitrogen 73 mg/dL (6-24); EGFR African American 5.8 (>60); EGFR Non-African American 4.8 (>60); Globulin 2.9 g/dL (2-4); Glucose 75 mg/dL (70-100); Total Protein 7.6 g/dL (6.4-8.9)
[2019-05-08 09:49] LABS: Anion Gap 16 mmol/L (2-11)
--- NOTE | 2019-05-08 10:58 | PN ---
Subjective Date of Service: 05/08/19 Interval History: Patient fell overnight, patient states that he lost sensation entirely in his left leg and it gave out. Patient states this has happened multiple times at home. Patient had a BM overnight which he now reports as dark and tarry, patient states this is not the normal for him. Patient's abdominal pain is unchanged. Patient denies F/C, CP, SOB, dizziness, diarrhea, N/V, or other pain. Family History: Unchanged from Admission Social History: Unchanged from Admission Past Medical History: Unchanged from Admission Objective Active Medications: Acetaminophen (Tylenol Tab*) 650 mg PO Q6H PRN PRN Reason: PAIN - MILD Last Admin: 05/03/19 02:42 Dose: 650 mg Calcitriol (Rocaltrol Cap*) 1 mcg PO BID [facility] Last Admin: 05/08/19 08:30 Dose: Not Given Calcium Carbonate (Tums*) 1,500 mg PO QID [facility] Last Admin: 05/08/19 08:30 Dose: Not Given Heparin Sodium (Porcine) (Heparin Vial(*)) 5,000 units SUBCUT Q8HR [facility] Last Admin: 05/08/19 05:27 Dose: Not Given Hydromorphone HCl (Dilaudid Inj1s*) 2 mg IV SLOW PU Q2H PRN PRN Reason: PAIN - SEVERE Last Admin: 05/08/19 09:11 Dose: 2 mg Piperacillin Sod/Tazobactam (Sod 3.375 gm/ Sodium Chloride) 100 mls @ 25 mls/ hr IVPB 0000,1200 [facility] Last Admin: 05/07/19 23:47 Dose: 25 mls/hr Ondansetron HCl (Zofran Inj*) 4 mg IV Q6H PRN PRN Reason: NAUSEA Last Admin: 05/07/19 20:53 Dose: 4 mg Pantoprazole Sodium (Protonix Iv*) 40 mg IV Q12H [facility] Pharmacy Consult (Zosyn Per Pharmacy*) 1 note FOLLOW UP .ZOSYN PER PHARMACY [facility] Polyethylene Glycol/Electrolytes (Miralax*) 17 gm PO DAILY PRN PRN Reason: CONSTIPATION Last Admin: 05/07/19 02:06 Dose: 17 gm Senna (Senokot 8.6 Mg Tab*) 1 tab PO DAILY PRN PRN Reason: CONSTIPATION Vital Signs - 8 hr 05/08/19 05/08/19 05/08/19 03:00 03:14 03:15 Temperature 98.1 F Pulse Rate 91 Respiratory 14 20 20 Rate Blood Pressure 125/71 (mmHg) O2 Sat by Pulse 100 Oximetry 05/08/19 05/08/19 05/08/19 05:29 08:56 09:11 Temperature 98.4 F Pulse Rate 93 Respiratory 16 16 16 Rate Blood Pressure 133/76 (mmHg) O2 Sat by Pulse 100 Oximetry 05/08/19 10:16 Temperature Pulse Rate Respiratory 16 Rate Blood Pressure (mmHg) O2 Sat by Pulse Oximetry Oxygen Devices in Use Now: None Appearance: Patient is a 33yo male who appears older than stated age and is sitting in the bed in [facility]. Eyes: No Scleral Icterus, PERRLA Ears/Nose/Mouth/Throat: NL Teeth, Lips, Gums, Clear Oropharnyx, Mucous Membranes Moist Neck: NL Appearance and Movements; NL JVP, Trachea Midline Respiratory: Symmetrical Chest Expansion and Respiratory Effort, Clear to Auscultation Cardiovascular: NL Sounds; No Murmurs; No JVD, RRR, No Edema Abdominal: - - RUQ pain. Lymphatic: No Cervical Adenopathy Extremities: No Edema, No Clubbing, Cyanosis Skin: No Rash or Ulcers, No Nodules or Sclerosis Neurological: Alert and Oriented x 3, - - Diminished sensation in lateral left leg. Grade 4/5 strength with plantarflexion of LLE. No other focal deficits. Trace B/L Achilles reflexes. Result Diagrams: 05/08/19 08:50 05/08/19 11:06 Microbiology and Other Data: Microbiology 05/03/19 03:15 Nasal Screen MRSA (PCR) - Final Nasal Mrsa Not Detected Assess/Plan/Problems-Billing Assessment: Patient is a 33yo male with PCKD S/P 2 renal transplants, on HD who is here with abdominal pain, nausea, and diarrhea. Patient is presumptively diagnosed with acalculous cholecystitis. - Patient Problems (1) Abdominal pain Current Visit: Yes Status: Acute Code(s): R10.9 - UNSPECIFIED ABDOMINAL PAIN SNOMED Code(s): 50173877 Comment: - Pain in right upper quadrant now. Exacerbated with movements and certain food , particularly spicy and acidic food. Started after High Fat Meal. - No Nausea, Tolerating diet, avoid fat and spice - Localized gallbladder thickening could just be from ascites. - HIDA scan Rules out acalculous cholecystitis, Stop antibiotics. - Current conservative management, Opiate Pain medication. - History SBO with no SBO on recent CT A/P - HIDA scan shows normal filling of GB. - Appreciate GI consult, Endoscopy for later today. - New concern for Melena, Start BID PPI, Stool occult blood pending. No NSAIDs in history (2) Radiculopathy Current Visit: Yes Status: Acute Code(s): M54.10 - RADICULOPATHY, SITE UNSPECIFIED SNOMED Code(s): 55999600 Comment: - Consistent with Left sided S1 radiculopathy, MRI shows moderate foraminal stenosis - Fall overnight due to "leg giving out" due to loss of sensation in whole leg. - Differential includes vascular issue due to multiple abdominal vascular surgeries, though not as consistent. Follow up outpatient vascular surgeon. - Positive SLR on left. - PT/OT, pain control, may need outpatient referral to neurosurgery if not responsive to conservative measures. (3) Polycystic kidney disease Current Visit: No Status: Acute Code(s): Q61.3 - POLYCYSTIC KIDNEY, UNSPECIFIED SNOMED Code(s): 95190580 Comment: - On home HD. (4) DVT prophylaxis Current Visit: No Status: Acute Code(s): TRH2046 - SNOMED Code(s): 351422133 Comment: - Ambulation (5) Full code status Current Visit: No Status: Acute Code(s): Z78.9 - OTHER SPECIFIED HEALTH STATUS SNOMED Code(s): 615102162 Status and Disposition: Inpatient for abdominal pain, pending Endoscopy.
[2019-05-08] MEDS ORDERED: Pantoprazole IV* 40 MG IV SCH (11:00)
--- NOTE | 2019-05-08 11:46 | PN ---
Progress Note - Progress Note Date of Service: 05/08/19 Note: Surgery Progress: S:cont to have significant RUQ pain (exacerbated by eating acidic food?); currently NPO for EGD and just finished delayed HIDA imaging. States he had an episode of vomiting (bilious) last pm. Also states he has had some black, tarry stool (not heme tested). Also fell last night 2/2 to weakness of LLE; MRI of back pending later today. O: Vital Signs - 8 hr 05/08/19 05/08/19 05/08/19 05:29 08:56 09:11 Temperature 98.4 F Pulse Rate 93 Respiratory 16 16 16 Rate Blood Pressure 133/76 (mmHg) O2 Sat by Pulse 100 Oximetry 05/08/19 05/08/19 05/08/19 10:16 11:00 11:31 Temperature 98.3 F Pulse Rate 88 Respiratory 16 18 16 Rate Blood Pressure 118/64 (mmHg) O2 Sat by Pulse 95 Oximetry Intake and Output Last 24 Hours 05/06/19 05/07/19 05/08/19 05/09/19 06:59 06:59 06:59 06:59 Intake Total 3970 087 0153 0 Output Total 0 Balance 3758 850 9389 0 Intake: Oral 3145 166 5707 0 Output: Urine 0 Other: Estimated Void Medium Medium Date of Last Bowel [id number] Movement # Bowel Movements 1 0 0 Estimated Stool Amount Small Large # Voids 1 0 0 Gen: sitting up in chair; NAD, though appears uncomfortable Heart: reg Lungs: clear Abd: ?mildly distended; soft; moderate RUQ tenderness, similar to past exams; remainder of abd w/o sig tenderness Labs: LFTs normal Laboratory Tests 05/08/19 08:50 WBC 5.2 Hgb 8.6 L HIDA: early visualization of extrahepatic ducts and duodenum; GB visualizes at 4 hr imaging (delayed, but indicates patent cystic duct) A/P: ? acalculous cholecystits vs PUD (appearing to be more likely the latter); PPI initiated by hospitalist; will cont to follow; EDG later today.
[2019-05-08 13:57] LABS: Potassium Redraw 5.2 mmol/L (3.5-5.0)
[2019-05-08] MEDS ORDERED: fentaNYL* 50 MCG/ML 2 ML VIAL (100 MCG VIAL) ONE (14:32)
[2019-05-08] MEDS ORDERED: Midazolam* 1 MG/ML 10 ML VIAL (10 MG) ONE (14:32)
--- NOTE | 2019-05-08 15:01 | PN ---
Progress Note - Progress Note Date of Service: 05/08/19 Note: EGD, 5 mg IV versed, 25 mg IV fent E---->nml G--->large bezoar in mid body, tried to move around to see underneath but unable , bx for DOUG D--->nml, bx for celiac No PUD, but can't see under food ??gastroparesis, ordered GET Dr Parikh to Wednesday Ed Michele MD [facility] [phone]
[2019-05-08] MEDS: ZOSYN 3.375 GM Q12H per EXTENDED INFUSION IVPB SCH ×2 (16:09)
[2019-05-08] MEDS ORDERED: Acetaminophen TAB* 325 MG PO SCH (18:00)
[2019-05-08 18:57] VITALS: BP 132/75
[2019-05-08] MEDS ORDERED: Gabapentin CAP(*) 100 MG PO SCH (21:00)
--- NOTE | 2019-05-08 21:24 | PRO ---
CC: Dr. Orantes * DATE OF PROCEDURE: 05/08/19 - ROOM #410 PROCEDURE: EGD. INDICATION: Right upper quadrant pain. MEDICATIONS GIVEN: 25 mcg IV fentanyl, 5 mg IV Versed. DESCRIPTION OF PROCEDURE: After the EGD procedure, including the risks, benefits, and alternatives not limited to perforation, surgery, and/or were explained to Mr. Peacock, written consent was then obtained. IV medication was given and a bite block was placed between the teeth. An Olympus gastroscope was then inserted into the patient's mouth, advanced down the esophagus into the stomach, into the distal duodenum. In the esophagus, at the GE junction, the Z-line was intact. No erosive esophagitis, stricture, or ring was seen. The scope was advanced through the GE junction into the body of the stomach. The retroflexed views were unremarkable. Forward views revealed a large bezoar. Unfortunately, I was unable to see underneath it. I tried to move the patient around and move the bezoar; however, I could not successfully see underneath it. No peptic ulcer disease was seen. A biopsy was obtained for DOUG. The scope was advanced through a widely patent pylorus, into the duodenal bulb, into the distal duodenum, both of which were unremarkable. Biopsies were obtained for celiac disease. The scope was then withdrawn from the patient. He tolerated the procedure well and was returned to the recovery room in stable condition. IMPRESSION: 1. Complete upper endoscopy into the distal duodenum with biopsies. 2. Very large bezoar. 3. Biopsies for celiac and Helicobacter pylori. 4. I would like to obtain a gastric emptying test to evaluate for gastroparesis. [id number]/[facility] #: [id number] [facility]ENTER[facility]ennifer
--- NOTE | 2019-05-09 00:20 | DS ---
CC: Dr. David Orantes * DISCHARGE SUMMARY: DATE OF ADMISSION: 05/03/19 DATE OF DISCHARGE: 05/08/19 PRIMARY CARE PROVIDER: Dr. David Orantes. MY ATTENDING WHILE IN THE HOSPITAL: Dr. Cathleen Haro.* (DICTATED BY JUAN HICKS) PRIMARY DISCHARGE DIAGNOSES: 1. Abdominal pain. 2. Gastric bezoar. 3. Lumbar radiculopathy. SECONDARY DISCHARGE DIAGNOSES: 1. End-stage renal disease related to polycystic kidney disease, status post 2 failed renal transplants. 2. Secondary hyperparathyroidism. 3. Anemia related to chronic kidney disease. 4. Polycystic kidney disease. 5. History of small bowel obstruction. STUDIES DONE WHILE IN THE HOSPITAL: Studies from the patient's prior ED stay, abdomen and pelvis CT from 04/30/19 read as appendix not clearly identified, but no significant pericecal fluid or stranding identified. If symptoms persist, consider followup CT of gallbladder with IV contras, gallbladder wall poorly defined, no calcified gallstones with clinical concern for acute cholecystitis in right upper quadrant may also be helpful, atrophic kidney, small amount of perihepatic ascites, anterior abdominal wall periumbilical skin defect and skin thickening grossly unchanged. Numerous abdominal collateral vessels again noted. High density foci are noted in the lower abdomen. anterior scarring noted in the region of left external iliac artery and vein correlates both clinical and surgical history. Gallbladder ultrasound from 04/30/19 read as no gallstones; however, there is trace pericholecystic fluid with localized wall edema and thickening. There is negative sonographic Gonzalez's sign. HIDA scan from read as delayed visualization of the gallbladder. Lumbar spine MRI from 05/18 read as degenerative disk disease with mild osteoarthritis. There is mild narrowing of the central canal at L4-5 and also neural foraminal narrowing as described above including L5-S1, again noted are subcutaneous abdominal varices. EGD shows a large bezoar, no visible ulcers. MEDICATIONS AT DISCHARGE: 1. Tylenol 975 mg p.o. q.6 hours as needed. 2. Epo 10,000 units IV twice weekly with dialysis. 3. Calcitriol 1 mcg p.o. b.i.d. 4. Calcium carbonate 1500 mg p.o. 4 times a day. New medications on discharge: None. Medication discontinued at discharge: None. HOSPITAL COURSE: This is a brief summary of the patient's presentation. For more details, please see history and physical from Dr. Genesis Woody on . In brief, the patient is 33-year-old male with past medical history as stated above who is admitted to this hospital early this year with a small bowel obstruction, which was able to be managed conservatively. The patient 2 days before his admission ate a fatty meal at [employer] and had immediate right upper quadrant abdominal pain and nausea with diarrhea for several days. The patient came to the emergency room and initially had the above CT scans, but had other things to address and left emergency department and came back on 05/03 with persistent abdominal pain mainly in his right upper and lower quadrants. The patient is admitted to the hospital, seen in consultation by Dr. Dre Jacobs of General Surgery who believed that his pain was related to acute cholecystitis, recommended no further imaging, antibiotics and conservative treatment. The patient was needing 2 mg of IV morphine approximately every 2 hours during his hospitalization. The patient's pain was exacerbated by eating spicy and acidic foods, movement and bearing down with bowel movements. The patient did not improve for several days with conservative treatment. A HIDA scan was ordered, which was read as above. The patient in the hospital complained of left leg stabbing pain, which radiated down to his toe with numbness and tingling. He also had a fall in the hospital related to his leg giving out which he says was associated with complete lack of feeling in that leg. The patient stated these symptoms have been going on for several weeks before admission. Due to concern for pelvic ulcer disease due to exacerbation with spicy and acidic foods, the patient had an EGD, which showed a bezoar as above, but this was not clear whether this was obstructing and was unclear cause. The patient was planned for a gastric emptying study. There was also plan for further workup regarding his mesenteric vasculature given his lack of improvement on conservative therapy, the ruling out of his acute cholecystitis. The patient also developed melena overnight on 05/07/19. The patient was placed at that time on PPI therapy, but again did not have any visualized ulcers on EGD and not getting to any relief from this. The patient as above was requiring 2 mg of IV Dilaudid, which was ordered q.2 hours, which the patient was receiving routinely with, 14 mg being given in the 24 hour period of 05/07/19 with additional 8 mg given on 05/08/19. The patient in the morning of 05/08/19 was noted to be sedated and having myoclonic twitching and so the dose of his Dilaudid was not increased. He was placed on standing Tylenol and very low dose gabapentin given his renal failure; however, before these medications were able to be given, the patient requested to be discharged AMA, as he did not feel his pain control is being addressed, to go to [facility] in [place] where he has received his previous vascular surgery. The patient said he will leave against medical advice; however, it was decided that given the patient was leaving to seek care at a different institution who had already access to his vascular surgery records that he would be discharged with the plan of going directly to [facility] on the day of his discharge. The patient was given records of the studies and consults done during his hospitalization and was discharged on 05/08/19. DISCHARGE PLAN BY PROBLEM: 1. Abdominal pain. The patient has been having constant abdominal pain for several days now. The initial presumptive diagnosis was acalculous cholecystitis, which was treated conservatively per the recommendation of surgical service; however, given the patient's lack of improvement, HIDA scan was ordered which ruled this out. The patient also had an EGD, which did not show any peptic ulcer disease, but showed a bezoar which may account for the patient's symptoms, but has unclear etiology. The plan for this was to have a gastric emptying study to be performed on the morning of 05/09/19, but was unable to be performed given the melena and persistence of the patient's pain. Further workup was planned to be undertaken for possible mesenteric ischemia or other vascular issue in the abdomen such as portal vein thrombosis or other clotting issue. The patient had no elevated LFTs and had normal lactic acid early in his hospitalization. The patient's pain control was causing significant sedation during his hospitalization and showed particularly in the morning of 05/08/19 and his dose of his Dilaudid was not escalated, which eventually contributed to his decision to leave abruptly and seek care elsewhere. 2. End-stage renal disease. Continue calcitriol and calcium carbonate. Of note, the patient due to testing constraints would not be able to receive dialysis on 05/08/19. The patient had potassium of 5.2 on 05/08/19 in the morning. The patient will need dialysis on 05/09/19, this should be to be arranged through [facility]. 3. Lumbar radiculopathy. The patient was being treated conservatively while in the hospital. The patient's MRI results are as above. The patient should continue with physical therapy for presumed lumbar radiculopathy with consistent MRI findings; however, it is not totally excluded this may be related to a vascular issue and while the patient is being evaluated by vascular surgeon if further imaging of the arterial supply to this leg may be indicated. DISPOSITION: Discharged to home with agreed upon plan to seek care at a higher level facility this evening immediately after discharge. CONDITION: Guarded. TIME SPENT: Approximately 75 minutes was spent on discharge of this patient, 45 of which spent [id number] with the patient obtaining history and physical and discussing the treatment plan. This plan was discussed with my attending, Dr. Cathleen Haro, and she is in agreement. JUAN HICKS [id number]/CPS #: [id number]
[2019-05-09 17:58] LABS: Albumin 4.3 g/dL (3.4-4.7); Albumin/Globulin Ratio 1.03; Gamma Globulin 1.9 g/dL (0.6-1.6); Total Protein(PEP) 8.5 g/dL (6.3 - 7.9)
== END 2019-05-08 17:55 | disposition home or self-care (01) | DRG 393 ==
LOC: ED 18:15 → MED 05-03 00:35 → OBSVTOIN 05-04 11:00 → MED 05-04 15:31
PROVIDERS: ADMIT Student in an Organized Health Care Education/Training Program; ATTEND Internal Medicine
PROC: 5A1D70Z Performance of Urinary Filtration, Intermittent, Less than 6 Hours Per Day (ICD-10-PCS; principal; 2019-05-03)
PROC: 5A1D70Z Performance of Urinary Filtration, Intermittent, Less than 6 Hours Per Day (ICD-10-PCS; 2019-05-05)
PROC: 0DD98ZX Extraction of Duodenum, Via Natural or Artificial Opening Endoscopic, Diagnostic (ICD-10-PCS; 2019-05-08)
PROC: 0DD68ZX Extraction of Stomach, Via Natural or Artificial Opening Endoscopic, Diagnostic (ICD-10-PCS; 2019-05-08)
DX: T18.2XXA Foreign body in stomach, initial encounter (principal); N18.6 End stage renal disease; T86.12 Kidney transplant failure; Q61.3 Polycystic kidney, unspecified; N25.81 Secondary hyperparathyroidism of renal origin; Z94.0 Kidney transplant status; R18.8 Other ascites; K92.1 Melena; G62.9 Polyneuropathy, unspecified; R10.11 Right upper quadrant pain; R19.7 Diarrhea, unspecified; D63.1 Anemia in chronic kidney disease; M51.16 Intervertebral disc disorders with radiculopathy, lumbar region; R20.0 Anesthesia of skin; M47.9 Spondylosis, unspecified; T14.8XXA Other injury of unspecified body region, initial encounter; X58.XXXA Exposure to other specified factors, initial encounter; W18.30XA Fall on same level, unspecified, initial encounter; Y92.239 Unspecified place in hospital as the place of occurrence of the external cause; Z99.2 Dependence on renal dialysis; Z88.0 Allergy status to penicillin; Z88.8 Allergy status to other drugs, medicaments and biological substances; Z88.1 Allergy status to other antibiotic agents; Z91.030 Bee allergy status; Z91.041 Radiographic dye allergy status; Y92.9 Unspecified place or not applicable
CPT/HCPCS: 36415; 72148; 78226; 80048; 80053; 80076; 82542; 82607; 82728; 83036; 83540; 83550; 83605; 83690; 83735; 84155; 84165; 84207; 85025; 86140; 87077; 87641; 88305; 90935; 99156; 99284; A9270-GY; A9537; G0257; G0378; G8978-GP-CI; J1170; J1644; J2250; J2270; J2405; J2543; J3010; Q5106

== ENCOUNTER 2019-05-23 21:08 | Emergency (ER) | payer MEDICARE, MEDICAID ==
--- OUTSIDE RECORDS SUMMARY | 2019-05-23 21:22 | XMS REPORT | Summary of Care ---
:1985 Author Organization [facility] Address [address] [address] Care Team Providers Name Role Phone Shania Beyer Primary Care Provider Reason for Visit Reason Comments Abdominal Pain Encounter Details Date Type Department Care Team Description 05/08/2019 - Emergency [facility] Emergency Department Abdoul Gaffney Emergency 05/09/2019 [address] [place] [address] [address] [phone] [address] [address] Allergies Active Allergy Reactions Severity Noted Date Comments Cefazolin Sodium Hives 02/15/2012 Ct Dye Anaphylaxis 02/15/2012 Keflex Hives 02/15/2012 Vancomycin Hives 02/15/2012 Phenol-Wasp Venom Respiratory Reaction High 05/22/2013 Also caused hives, Protein hypertension documented as of this encounter (statuses as of 05/10/2019) Medications Medication Sig Dispensed Refills Start Date End Date Status epoetin efraín 2,500 Inject beneath 0 Active unitsIndications: as the skin. Every directed Wednesday & Wed. Indications: as directed acetaminophen Take 650 mg by 0 Active (TYLENOL) 325 MG Oral mouth EVERY Tab THREE HOURS NEEDED. sodium polystyrene Take 15 g by 0 Active (KAYEXALATE) Oral mouth NEEDED. Powder Calcium Carbonate Take 640 mg by 0 Active (CALCIUM-CARB 600 PO) mouth THREE TIMES DAILY WITH MEALS. EPINEPHrine (EPIPEN by Injection 0 Active IJ) route DIRECTED. CALCITRIOL PO Take 2 mcg by 0 Active mouth DAILY. ciprofloxacin (CIPRO) Take 1 Tab by 14 Tab 0 10/04/2018 Active 500 MG Oral Tab mouth DAILY. acetaminophen Take 2 Tabs by 0 03/08/2019 Active (TYLENOL) 325 MG Oral mouth EVERY SIX Tab HOURS NEEDED (Pain). metoclopramide Take 1 Tab by 30 Tab 0 05/09/2019 05/19/2019 Active (REGLAN) 5 MG Oral Tab mouth THREE TIMES DAILY NEEDED (nausea/vomiting ) for up to 10 days. 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 Overview: Added automatically from request for surgery [id number] AV shunt thrombosis, subsequent encounter 09/27/2018 Overview: Added automatically from request for surgery [id number] AV shunt stenosis, subsequent encounter 09/06/2018 Overview: Added automatically from request for surgery [id number] Mechanical complication of arteriovenous surgical shunt 08/02/2018 Overview: Added automatically from request for surgery [id number] Cellulitis 05/24/2018 Overview: Cat scratch disease vs Cellulitis in setting of Fistula proximity No systemic signs of infection, no WBC elevation Patient may have received IV Clindamycin at [place] without benefit for one day IV Ciprofloxacin and IV Flagyl in ED, Change to IV Unasyn and IV Doxycycline Vascular consulted for fistula assessment and care Infectious disease consulted at this time Blood cultures pending AV graft thrombosis, subsequent encounter 01/17/2018 Overview: Added automatically from request for surgery [id number] Arteriovenous graft stenosis, sequela 12/14/2017 Overview: Added automatically from request for surgery [id number] Stage 4 chronic kidney disease 12/14/2017 Overview: Added automatically from request for surgery [id number] Inferior vena caval stenosis 10/07/2016 End stage renal disease 02/06/2015 Iliac vein stenosis, right 02/06/2015 group home (current) use of anticoagulants 10/30/2013 Overview: Patient is managed by Dr. 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 S/P appy 03/25/2012 Overview: 02/08 Personal history of allergy to radiographic dye 02/29/2012 Polycystic kidney disease 02/15/2012 ESRD (end stage renal disease) on dialysis 02/15/2012 Overview: Status post 3rd transplant Home hemodialysis, Nephrology consulted at this time documented as of this encounter (statuses as of 05/10/2019) Resolved Problems Problem Noted Date Resolved Date Subclavian vein stenosis, 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 03/01/2012 Subclavian vein stenosis, 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 03/01/2012 documented as of this encounter (statuses as of 05/10/2019) Immunizations Name Administration Dates Next Due Influenza (IM) Preservative Free 07/26/2018 MMR VACCINE 01/23/2014 documented as of this encounter Social History Tobacco Use Types Packs/Day Years Used Date Former Smoker Quit: 08/30/2010 Smokeless Tobacco: Never Used Alcohol Use Drinks/Week oz/Week Comments No Sex Assigned at Date Recorded Not on file Job Start Date Occupation Industry Not on file Not on file Not on file Travel History Travel Start Travel End No recent travel history available. documented as of this encounter Last Filed Vital Signs Vital Sign Reading Time Taken Comments Blood Pressure 170/81 05/09/2019 9:00 AM EDT Pulse 94 05/09/2019 9:00 AM EDT Temperature 36.9 05/08/2019 8:53 PM EDT C (98.4 F) Respiratory Rate 20 05/09/2019 9:00 AM EDT Oxygen Saturation 100% 05/09/2019 9:00 AM EDT Inhaled Oxygen Concentration - - Weight 64 kg (141 lb 1.5 oz) 05/08/2019 8:53 PM EDT Height 157.5 cm (5' 2") 05/08/2019 8:53 PM EDT Body Mass Index 25.81 05/08/2019 8:53 PM EDT documented in this encounter Discharge Instructions Aliza Hernández RN - 05/09/2019See attached. AttachmentsThe following attachments cannot be sent through Care Everywhere.ACUTE ABDOMINAL PAIN (DISCHARGE CARE) (HUNGARIAN)GASTROPARESIS ( AFTERCARE(R) INSTRUCTIONS(ER/ED)) (HUNGARIAN)documented in this encounter Plan of Treatment Date Type Specialty Care Team Description 06/14/2019 Office Visit Gastroenterology Cielo Gould MD [address] [address] [phone] Name Type Priority Associated Diagnoses Date/Time INPT/ED 12 LEAD EKG EKG STAT 05/09/2019 12:56 AM EDT Health Maintenance Due Date Last Done Comments MEDICARE ANNUAL WELLNESS VISIT 1985 PNEUMOCOCCAL 0-64 YRS (1 of 3 - 1991 PCV13) DEPRESSION SCREENING 1997 INFLUENZA VACCINE (#1) 2019 07/26/2018 HPV IMMUNIZATION SERIES Aged Out No longer eligible based on patient's age to complete this topic MENINGOCOCCAL VACCINE IMM Aged Out No longer eligible based on patient's age to complete this topic documented as of this encounter Implants Implanted Type Area Development Director Device Shelf Model / Identifier Expiration Serial / Lot Date [place] Graft Regular Wall [id number] - [id number] Left: Arm [employer] [id number] / Implanted: Qty: 1 on 03/10/2012 at [facility] / [id number] Propaten Graft Right: [employer] [id number] / Implanted: Qty: 1 on 12/13/2012 at [facility] [place], operated by [facility] / [id number] Description:[id number] Artegraft Collagen Vascular Graft Right: Leg 02/26/2018 [id number] / Implanted: Qty: 1 on 08/26/2015 by Zakiya Ernandez MD at [facility] / [id number] Description:[id number] documented as of this encounter Procedures Procedure Name Priority Date/Time Associated Comments Diagnosis US ABDOMEN COMPLETE STAT 05/09/2019 3:49 Results for this AM EDT procedure are in the results section. CBC WITH DIFFERENTIAL STAT 05/09/2019 1:13 Results for this AM EDT procedure are in the results section. TROPONIN STAT 05/09/2019 1:13 Results for this AM EDT procedure are in the results section. LIPASE STAT 05/09/2019 1:13 Results for this AM EDT procedure are in the results section. LACTIC ACID (LAB) STAT 05/09/2019 1:13 Results for this AM EDT procedure are in the results section. COMPREHENSIVE STAT 05/09/2019 1:13 Results for this METABOLIC PANEL AM EDT procedure are in the results section. documented in this encounter Results US ABDOMEN COMPLETE (05/09/2019 3:49 AM EDT) Specimen Impressions Performed At 1. Contracted gallbladder without stones or evidence of cholecystitis. 2. Normal liver and bile ducts. 3. Nonvisualized kidneys due to severe renal atrophy. Signed by Humphrey Mcgowan on 05/09/2019 4:02 AM Narrative Performed At Procedure: US ABDOMEN COMPLETE Date of service: 05/09/2019 3:26 AM History: 33 years, Male, "RUQ colicky x9 days" Technique: Grayscale and color Doppler ultrasound images of the abdomen with spectral waveforms. Comparison: CT abdomen/pelvis 01/18/18 Findings: The visualized portions of the aorta and inferior vena cava are patent. The liver measures 16 cm longitudinally, which is normal size. The liver has smooth surface contours and normal echogenicity. The portal vein is patent with normal antegrade phasic flow. The intrahepatic bile ducts are normal in caliber. The common bile duct diameter is 3 mm, which is normal. The gallbladder is mildly contracted with 3 mm wall thickness. There are no gallstones or pericholecystic fluid. Sonographic Gonzalez sign is negative. The pancreas is obscured by overlying bowel gas. The spleen is normal in size, measuring 11.1 cm longitudinally. The kidneys are not visualized. There is no ascites. Procedure Note Interface, Rad Results - 05/09/2019 4:04 AM EDT Procedure: US ABDOMEN COMPLETE Date of service: 05/09/2019 3:26 AM History: 33 years, Male, "RUQ colicky x9 days" Technique: Grayscale and color Doppler ultrasound images of the abdomen with spectral waveforms. Comparison: CT abdomen/pelvis 01/18/18 Findings: The visualized portions of the aorta and inferior vena cava are patent. The liver measures 16 cm longitudinally, which is normal size. The liver has smooth surface contours and normal echogenicity. The portal vein is patent with normal antegrade phasic flow. The intrahepatic bile ducts are normal in caliber. The common bile duct diameter is 3 mm, which is normal. The gallbladder is mildly contracted with 3 mm wall thickness. There are no gallstones or pericholecystic fluid. Sonographic Gonzalez sign is negative. The pancreas is obscured by overlying bowel gas. The spleen is normal in size, measuring 11.1 cm longitudinally. The kidneys are not visualized. There is no ascites. IMPRESSION 1. Contracted gallbladder without stones or evidence of cholecystitis. 2. Normal liver and bile ducts. 3. Nonvisualized kidneys due to severe renal atrophy. Signed by Humphrey Mcgowan on 05/09/2019 4:02 AM TROPONIN (05/09/2019 1:13 AM EDT) Troponin <0.012 0.000 - 0.034 [facility] Comment: ng/ml [facility] Negative less than or equal to 0.034 ng/ml Indeterminate 0.0351 - 0.119 ng/ml (Suggest Repeat in 4 Hours) Critical (AMI Cutoff) greater than or equal to 0.120 ng/ml Specimen Blood Performing Organization Address [facility] Phone Number [facility] [address] [place] [address] LACTIC ACID (LAB) (05/09/2019 1:13 AM EDT) Lactic Acid 0.7 0.7 - 2.1 MMOL/L [facility] Specimen Blood Performing Organization Address [facility] Phone Number [facility] [address] [facility] [address] [phone] LIPASE (05/09/2019 1:13 AM EDT) Lipase 609 (H) 23 - 300 U/L [facility] Specimen Blood Performing Organization Address [facility] Phone Number [facility] [address] [place] [address] COMPREHENSIVE METABOLIC PANEL (05/09/2019 1:13 AM EDT) Sodium 141 134 - 145 mmol/L [facility] Potassium 5.2 (H) 3.5 - 5.1 mmol/L [facility] Chloride 101 98 - 107 mmol/L [facility] CO2 21 (L) 22 - 30 mmol/L [facility] Calcium 8.0 (L) 8.3 - 10.1 mg/dl [facility] Albumin 4.7 3.5 - 5.0 g/dl [facility] BUN 85 (H) 9 - 20 mg/dl [facility] Creatinine 15.2 (H) 0.8 - 1.5 mg/dl [facility] Glucose 97 70 - 99 mg/dl [facility] Total Protein 8.1 6.3 - 8.2 g/dl [facility] Total Bilirubin 0.7 0.0 - 1.1 MG/DL [facility] AST 27 17 - 59 U/L [facility] ALT 37 21 - 72 U/L [facility] Alkaline 71 40 - 150 U/L [facility] Phosphatase [facility] eGFR 4 See Interpretation [facility] Comment: Below ml/min/1.73ml [facility] Estimated GFR Interpretation: Above 60ml/min/1.73m2 = Normal Renal Function 30-59 ml/min/1.73m2 = Stage 3 Chronic Kidney Disease 15-29 ml/min/1.73m2 = Stage 4 Chronic Kidney Disease Less than 15 ml/min/1.73m2 = Stage 5 Chronic Kidney Disease The GFR value is calculated using the Modification of Diet in Renal Disease ( MDRD) Study Equation which can be found at: https://www.kidney.org/content/urno-wqrtw-qfzsgual BUN/Creatinine 6 6 - 22 RATIO [facility] Anion Gap 19 (H) 3 - 11 mmol/L [facility] A/G Ratio 1.4 0.8 - 2.0 ratio [facility] Specimen Blood Performing Organization Address City/State/Zipcode Phone Number [facility] [address] [place] [address] [phone] CBC WITH DIFFERENTIAL (05/09/2019 1:13 AM EDT) WBC Count 5.45 4.23 - 9.07 K/uL [facility] RBC Count 2.47 (L) 4.30 - 5.89 M/UL [facility] Hemoglobin 7.7 (L) 13.7 - 17.5 g/dL [facility] Hematocrit 24.3 (L) 40.1 - 51.0 % [facility] MCV 98.4 (H) 79.0 - 92.2 FL [facility] MCH 31.2 25.7 - 32.2 PG [facility] MCHC 31.7 (L) 32.3 - 36.5 g/dL [facility] Platelet Count 203 163 - 337 K/uL [facility] MPV 10.0 9.4 - 12.4 FL [facility] RDW 16.6 (H) 11.6 - 14.4 % [facility] Neutrophil % 65.7 34.0 - 67.9 % [facility] Lymphocyte % 15.4 (L) 21.8 - 53.1 % [facility] Monocyte % 12.5 (H) 5.3 - 12.2 % [facility] Eosinophil % 5.5 0.8 - 7.0 % [facility] Basophil % 0.7 0.2 - 1.2 % [facility] nRBC % 0.0 0.0 - 0.2 % [facility] Neutrophil # 3.58 1.78 - 5.38 K/UL [facility] Lymphocyte # 0.84 (L) 1.32 - 3.57 K/UL [facility] Monocyte # 0.68 0.30 - 0.82 K/UL [facility] Eosinophil # 0.30 0.04 - 0.54 K/UL [facility] Basophil # 0.04 0.01 - 0.08 K/UL [facility] Immature Gran % 0.2 0.0 - 0.4 % [facility] Immature Gran # 0.01 0.00 - 0.03 K/uL [facility] NRBC # 0.00 0.00 - 0.12 K/uL [facility] Specimen Blood Performing Organization Address City/State/[facility] Phone Number [facility] [address] [facility] [place] [address] documented in this encounter Visit Diagnoses Diagnosis Right upper quadrant abdominal pain - Primary Abdominal pain, right upper quadrant documented in this encounter Administered Medications Medication Order MAR Action Action Date Dose Rate Site ketorolac (TORADOL) injection 30 Given 05/09/2019 5:46 AM EDT 30 mg mg 30 mg, Intravenous Push, NOW, 1 dose, 05/09/19 at 0545 documented in this encounter Insurance Payer Benefit Plan / Subscriber ID Effective Dates Phone Address Type Group MEDICARE MEDICARE PART A xxxxxxxxxxx 1986-Present Medicare & B MEDICAID [facility] xxxxxxxx 2016-Present Medicaid [place] MED[place] documented as of this encounter
[2019-05-23] MEDS ORDERED: metroNIDAZOLE IV 500 MG/100ML* 500 MG/100 ML BAG IVPB ONE (22:29)
[2019-05-23] MEDS ORDERED: NS 0.9% 1000 ML** 1,000 ML IV.FLUID IV ONE (22:29)
[2019-05-23] MEDS ORDERED: Ciprofloxacin 400MG IVPREMIX(* 400 MG/200 ML BAG IVPB ONE (22:29)
[2019-05-23 22:46] LABS: ABS Eosinophils 0.2 10^3/ul (0-0.6); ABS Lymphocytes 0.5 10^3/ul (1.0-4.8); ABS Monocytes 0.7 10^3/ul (0-0.8); ABS Neutrophils 5.9 10^3/ul (1.5-7.7); Eosinophil % 2.9 %; Hematocrit 22 % (42-52); Hemoglobin 7.4 g/dL (14.0-18.0); Lymphocyte % 6.7 %; Mean Corpuscular HGB Conc 33 g/dL (31-36); Mean Corpuscular Hemoglobin 32 pg (27-31); Mean Corpuscular Volume 97 fL (80-94); Mean Platelet Volume 7.4 fL (7.4-10.4); Nucleated Red Blood Cells % 0.1; Platelet Count 204 10^3/uL (150-450); Red Blood Count 2.31 10^6 /uL (4.18-5.48); Red Cell Distribution Width 20 % (10-15); White Blood Count 7.3 10^3/uL (3.5-10.8)
--- NOTE | 2019-05-23 22:48 | ED ---
Complex/Multi-Sys Presentation - HPI Summary HPI Summary: 33 year old M presenting to [facility] accompanied by female die out worker complains of pain, swelling, discoloration, erythema, and warmth around his dialysis shunt on his left upper extremity with associated left upper extremity throbbing since yesterday 05/22/19 morning. Patient is on dialysis. He receives dialysis at home. Last treatment was on Wednesday05/22/19. Patient states that he has had the dialysis shunt in his left upper extremity for 6-7 years and has never had issues with it. Patient states his left upper extremity shunt was last cannulated several weeks ago while he was in the hospital being evaluated for abdominal pain. Patient states he has a follow-up with GI soon. Patient additionally complains of fever 100-102F since yesterday 05/22/19 mid-afternoon and today. Patient reports myalgia and chills. Patient denies nausea, vomiting, diarrhea. The patient rates the pain 6/10 in severity. Symptoms aggravated by nothing. Symptoms alleviated by nothing. - History Of Current Complaint Chief Complaint: EDFever Time Seen by Provider: 05/23/19 22:33 Hx Obtained From: Patient Onset/Duration: Lasting Days - 2, Still Present Timing: Constant Severity Currently: Moderate Character: Throbbing Aggravating Factor(s): Nothing Alleviating Factor(s): Nothing Associated Signs And Symptoms: Positive: Fever, Other - left upper extremity throbbing, chills. Negative: Nausea, Vomiting, Diarrhea - Allergies/Home Medications Allergies/Adverse Reactions: Allergies Allergy/AdvReac Type Severity Reaction Status Date / Time Iodinated Contrast Media Allergy Severe Anaphylatic Verified 04/30/19 16:20 [Iodinated Contrast- Oral Shock and IV Dye] vancomycin Allergy Severe Red man Verified 05/03/19 16:06 syndrome bee venom protein (honey bee) Allergy Anaphylatic Verified 04/30/19 16:20 Shock cefazolin [From Ancef] Allergy Hives Verified 05/03/19 16:06 cephalexin [From Keflex] Allergy Hives Verified 05/03/19 16:06 Penicillins Allergy Hives Verified 05/03/19 16:06 Home Medications: Home Medications Gabapentin [Neurontin] 100 mg PO TID 05/23/19 [History Confirmed 05/23/19] PMH/Surg Hx/FS Hx/Imm Hx Endocrine/Hematology History: Reports: Hx Anticoagulant Therapy - HEPARIN DURING DIALYSIS, Hx Thyroid Disease - PARTIAL PARATHYROIDECTOMY Denies: Hx Diabetes Cardiovascular History: Reports: Hx Angina, Hx Hypertension, Other Cardiovascular Problems/Disorders - Pericarditis Denies: Hx Coronary Artery Disease, Hx Hypercholesterolemia, Hx Myocardial Infarction, Hx Pacemaker/ICD, Hx Peripheral Vascular Disease, Hx Valvular Heart Disease Respiratory History: Denies: Hx Asthma, Hx Chronic Obstructive Pulmonary Disease (COPD) History: Reports: Hx Chronic Renal Failure - hemodialysis 4x/week at home, Hx Renal Disease - dialysis , , wed Musculoskeletal History: Denies: Hx Arthritis, Hx Osteoporosis Sensory History: Denies: Hx Contacts or Glasses, Hx Hearing Aid Opthamlomology History: Denies: Hx Contacts or Glasses Neurological History: Denies: Hx Dementia, Hx Headaches, Hx Seizures, Hx Transient Ischemic Attacks (TIA) Psychiatric History: Denies: Hx Anxiety, Hx Depression, Hx Panic Disorder, Hx Substance Abuse - Surgical History Surgery Procedure, Year, and Place: PARTIAL PARATHYROIDECTOMY, L ARM GRAFT, R LEG GRAFT, HEMODYALISIS CATHETER PLACEMENT, KIDNEY TRANSPLANT X2, APPENDECTOMY, bilat illiac graft 02/2019 - Immunization History Date of Tetanus Vaccine: Date of Influenza Vaccine: Fall 2015 Infectious Disease History: No Infectious Disease History: Denies: Hx Hepatitis, Hx Human Immunodeficiency Virus (HIV), Hx of Known/ Suspected MRSA, Traveled Outside the [place] in Last 30 Days - Family History Known Family History: Positive: Hypertension, Diabetes Negative: Cardiac Disease - Social History Alcohol Use: None Hx Substance Use: No Substance Use Type: Reports: None Hx Tobacco Use: Yes Smoking Status (MU): Former Smoker Type: Cigarettes Amount Used/How Often: 1 pack lasted 4 days Length of Time of Smoking/Using Tobacco: 12 years Have You Smoked in the Last Year: No Review of Systems - ROS Summary Review of Systems Summary: Home Medications Medication Instructions Recorded Confirmed Type Acetaminophen TAB* [Tylenol TAB*] 975 mg PO Q6HR PRN #0 02/09/17 05/23/19 Rx Epoetin Giovany (NF) [Epogen (NF)] 10,000 units INJ .TWICE WEEKLY 04/02/17 History Calcitriol CAP* [Rocaltrol CAP*] 1 mcg PO BID cap 04/03/17 05/23/19 Rx Calcium Carbonate CHEW TAB* [Tums*] 1,500 mg PO QID tab.chew 04/03/17 05/23/19 Rx Gabapentin [Neurontin] 100 mg PO TID 05/23/19 05/23/19 History Positive: Fever, Chills Negative: Vomiting, Diarrhea, Nausea Musculoskeletal: Other - left upper extremity throbbing Positive: Myalgia, Other - pain, swelling, discoloration, erythema, and warmth around his dialysis shunt on his left upper extremity All Other Systems Reviewed And Are Negative: Yes Physical Exam - Summary Physical Exam Summary: General: Well-developed, Well-nourished MALE. No acute distress. HEENT: Normocephalic, Atraumatic. Eyes: Conjuctiva normal, PERRL. Ears: TMs within normal limits. Nares: (-) discharge, (-) erythema. Oropharynx: Clear, mucous membranes moist, (-) exudates. Neck: Soft, FROM, (-) lymphadenopathy, (-) thyromegaly, (-) JVD. Cardiovascular: Normal sinus rhythm, (-) murmur. Lungs: Clear to auscultation bilaterally (-) wheezes, (-) rales, (-) rhonchi. Abdomen: Soft, non-tender, non-distended, (-) organomegaly, normal bowel sounds. Back: (-) CVA tenderness Extremities: His left upper arm fistula is erythematous, warm, swollen, tender. He has good pulses and good capillary refill distally. Skin: Warm, dry, (-) rash. Neuro: Alert and oriented x3, no focal deficits. Psychiatric: Mood normal, affect normal. Triage Information Reviewed: Yes Vital Signs On Initial Exam: Initial Vitals Temp Pulse Resp BP Pulse Ox 101.9 F 124 18 156/92 96 05/23/19 21:11 05/23/19 21:11 05/23/19 21:11 05/23/19 21:11 05/23/19 21:11 Vital Signs Reviewed: Yes Diagnostics - Vital Signs Vital Signs Temp Pulse Resp BP Pulse Ox 05/23/19 21:59 99.3 F 05/23/19 21:11 101.9 F 124 18 156/92 96 - Laboratory Result Diagrams: 05/23/19 22:30 05/23/19 22:30 Lab Statement: Any lab studies that have been ordered have been reviewed, and results considered in the medical decision making process. - Radiology CXR Radiology Interpretation Completed By: ED Physician Summary of Radiographic Findings: Mild interstitial edema. Pending official report Re-Evaluation - Re-Evaluation First Eval Re-Evaluation Time: 00:27 Comment: patient would like to sign out AMA per nurse Second Eval Re-Evaluation Time: 01:15 Comment: discussed the risks of signing out AMA. patient understands and will sign out AMA Complex Multi-Symp Course/Dx Course Of Treatment: 33 year old M presenting to [facility] accompanied by female die out worker complains of pain, swelling, discoloration, erythema, and warmth around his dialysis shunt on his left upper extremity with associated left upper extremity throbbing since yesterday 05/22/19 morning. Patient states his left upper extremity shunt was last cannulated several weeks ago. Patient additionally complains of fever 100-102F since yesterday 05/22/19 mid-afternoon and today. Patient reports myalgia and chills. Patient denies nausea, vomiting, diarrhea. Physical exam findings: His left upper arm fistula is erythematous, warm, swollen, tender. He has good pulses and good capillary refill distally. CXR shows mild interstitial edema. Bloodwork results with no significant abnormalities except for RBC 2.31, Hgb 7.4, Hct 22, MCV 97, MCH 32, RDW 20, absolute lymphs 0.5, INR 1.28, chloride 98, anion gap 13, BUN 76, creatinine 12.20, BUN/Creatinine 6.2, glucose 110, calcium 7.1, CRP 80.37. In the ED course, the patient was given Cipro, Flagyl, and normal saline fluids 1 L IV. We discussed patient care with Dr. Granado, hospitalist, who agreed to admit patient. The patient will be admitted to the hospitalist. Per nurse, the patient states that he does not want to be admitted to [facility] and states he would like to go to [place] where his vascular surgeon is. Per nurse, patient would like to drive to [place] himself and understands that if he does so, he will be signing out AMA. Discussed the risks of leaving AMA. Patient understands and will sign out AMA. - Diagnoses Provider Diagnoses: Fever - Physician Notifications Discussed Care Of Patient With: Elizabeth Granado Time Discussed With Above Provider: 23:17 Instructed by Provider To: Other - Dr. Granado, hospitalist, agrees to admit patient. Discharge ED - Sign-Out/Discharge Documenting (check all that apply): Patient Departure - AMA Patient Received Moderate/Deep Sedation with Procedure: No - Discharge Plan Condition: Stable Disposition: AGAINST MEDICAL ADVICE Patient Education Materials: Fever in Adults (ED) Referrals: David Orantes MD [Primary Care Provider] - 3 Days Additional Instructions: Please follow up with your primary care physician within 3 days. Please return to Emergency Department for any new or worsening symptoms. - Billing Disposition and Condition Condition: STABLE Disposition: Against Medical Advice - Attestation Statements Document Initiated by Scribe: Yes Documenting Scribe: Tawnya Osman Provider For Whom Mariela is Documenting (Include Credential): Shahana Ocasio MD Scribe Attestation: Tawnya Storey, scribed for Shahana Ocasio MD on 05/24/19 at 0525. Scribe Documentation Reviewed: Yes Provider Attestation: The documentation as recorded by the liborioibTawnya dexter accurately reflects the service I personally performed and the decisions made by me, Shahana Ocasio MD Status of Scribe Document: Viewed
[2019-05-23 22:53] LABS: Activated Partial Thrombo Time 34.1 seconds (26.0-38.0); INR 1.28 (0.82-1.09)
[2019-05-23 23:02] LABS: Albumin 4.3 g/dL (3.2-5.2); Albumin/Globulin Ratio 1.3 (1-3); BUN/Creatinine Ratio 6.2 (8-20); C Reactive Protein 80.37 mg/L (<8.01); Calcium 7.1 mg/dL (8.6-10.3); EGFR African American 5.8 (>60); EGFR Non-African American 4.8 (>60); Globulin 3.2 g/dL (2-4); Potassium 4.8 mmol/L (3.5-5.0); Total Bilirubin 0.6 mg/dL (0.2-1.0); Total Protein 7.5 g/dL (6.4-8.9)
[2019-05-23] MEDS ORDERED: HYDROcodone/ACETAMIN 5-325 MG* 1 TAB PO ONE (23:35)
[2019-05-23 23:36] LABS: HIV 4th Generation Nonreactive (Nonreactive)
[2019-05-24 01:26] VITALS: BP 143/103
== END 2019-05-24 01:25 | disposition left against medical advice (07) ==
LOC: ED 21:08
DX: R50.9 Fever, unspecified (principal); M79.602 Pain in left arm; I12.0 Hypertensive chronic kidney disease with stage 5 chronic kidney disease or end stage renal disease; N18.6 End stage renal disease; Z99.2 Dependence on renal dialysis; Z94.0 Kidney transplant status; Z87.891 Personal history of nicotine dependence; Z79.899 Other long term (current) drug therapy; Z88.0 Allergy status to penicillin; Z88.1 Allergy status to other antibiotic agents; Z91.041 Radiographic dye allergy status
CPT/HCPCS: 36415; 71045; 80053; 83605; 85025; 85610; 85730; 86140; 87040; 87389; 96361; 96365; 96366; 96375; 99283; J0744

== ENCOUNTER 2019-07-20 18:52 | Emergency (ER) | payer MEDICARE, MEDICAID ==
--- OUTSIDE RECORDS SUMMARY | 2019-07-20 19:22 | XMS REPORT | Summary of Care ---
:1985 Author Organization [facility] Address [address] [facility] [place] [address] Care Team Providers Name Role Phone Shania Beyer Primary Care Provider Reason for Referral MRI/CAT/PET Scan (Routine) Status Reason Specialty Diagnoses / Procedures Referred By Contact Referred To Contact Closed Diagnoses AV graft stenosis, sequela Zakiya Ernandez Procedures VL LOWER EXTREMITY DUPLEX ARTERIES RIGHT MD [place] [address] [place] [address] Reason for Visit Reason Comments Follow Up Encounter Details Date Type Department Care Team Description 07/04/2019 Office Visit [facility] Zakiya Ernandez AV graft stenosis, sequela (Primary Dx); Surgery MD [place] Thrombus; [address] Allergy to IVP dye, subsequent encounter [place] [id number] [place] [address] Allergies Active Allergy Reactions Severity Noted Date Comments Cefazolin Sodium Hives 02/15/2012 Ct Dye Anaphylaxis 02/15/2012 Keflex Hives 02/15/2012 Vancomycin Other 02/15/2012 nadya syndrome Phenol-Wasp Venom Respiratory Reaction High 05/22/2013 Also caused hives, Protein hypertension documented as of this encounter (statuses as of 07/09/2019) Medications Medication Sig Dispensed Refills Start Date End Date Status epoetin efraín 2,500 Inject beneath 0 Active unitsIndications: as the skin. Every directed Wednesday & Wed. Indications: as directed sodium polystyrene Take 15 g by 0 [...] mouth EVERY SIX Tab HOURS NEEDED (Pain). gabapentin (NEURONTIN) Take 100 mg by 0 Active 100 MG Oral Cap mouth THREE TIMES DAILY. warfarin (COUMADIN) 2 Take 1 Tab by 30 Tab 0 07/04/2019 Active MG Oral mouth DAILY. TabIndications: Thrombus predniSONE (DELTASONE) Take 1 Tab by 3 Tab 0 07/04/2019 Active 50 MG Oral mouth DAILY. TabIndications: Take one tablet Allergy to IVP dye, 13 hours, 7 subsequent encounter hours and 1 hour prior to the procedure diphenhydrAMINE Take 1 Cap by 1 Cap 0 07/04/2019 07/05/2019 (BENADRYL) 50 MG Oral mouth ONE TIME CapIndications: for 1 dose. 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/2019 Overview: Added automatically from request for surgery [id number] AV shunt thrombosis, subsequent encounter 09/27/2018 Overview: Added automatically from request for surgery [id number] AV shunt stenosis, subsequent encounter 09/06/2018 Overview: Added automatically from request for surgery [id number] Mechanical complication of arteriovenous surgical shunt 08/02/2018 Overview: Added automatically from request for surgery [id number] Cellulitis 05/24/2018 Overview: Cat scratch disease vs Cellulitis in setting of Fistula proximity No systemic signs of infection, no WBC elevation Patient may have received IV Clindamycin at [place] without benefit for one day IV Ciprofloxacin and IV Flagyl in ED, Change to IV Unasyn and IV Doxycycline Vascular consulted for fistula assessment and care Infectious disease consulted at this time Blood cultures pending AV graft thrombosis, subsequent encounter 01/17/2018 Overview: Added automatically from request for surgery [id number] Arteriovenous graft stenosis, sequela 12/14/2017 Overview: Added automatically from request for surgery [id number] Stage 4 chronic kidney disease 12/14/2017 Overview: Added automatically from request for surgery [id number] Inferior vena caval stenosis 10/07/2016 End stage renal disease 02/06/2015 Iliac vein stenosis, right 02/06/2015 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 10/30/2013 Overview: Patient [...] as of this encounter (statuses as of 07/09/2019) Resolved Problems Problem Noted Date Resolved Date Subclavian vein stenosis, 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 03/01/2012 Subclavian vein stenosis, 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 03/01/2012 documented as of this encounter (statuses as of 07/09/2019) Immunizations Name Administration Dates Next Due Influenza (IM) Preservative Free 07/26/2018 MMR VACCINE 01/23/2014 documented as of this encounter Social History Tobacco Use Types Packs/Day Years Used Date Former Smoker 0 Quit: 08/30/2010 Smokeless Tobacco: Never Used Alcohol Use Drinks/Week oz/Week Comments No Sex Assigned at Date Recorded Not on file Job Start Date Occupation Industry Not on file Not on file Not on file Travel History Travel Start Travel End No recent travel history available. documented as of this encounter Last Filed Vital Signs Vital Sign Reading Time Taken Comments Blood Pressure 140/90 07/04/2019 9:21 AM EST Pulse 80 07/04/2019 9:21 AM EST Temperature 36.7 07/04/2019 9:21 AM EST C (98.1 F) Respiratory Rate - - Oxygen Saturation - - Inhaled Oxygen Concentration - - Weight 68 kg (149 lb 14.6 oz) 07/04/2019 9:21 AM EST Height 157.5 cm (5' 2") 07/04/2019 9:21 AM EST Body Mass Index 27.42 07/04/2019 9:21 AM EST documented in this encounter Patient Instructions Patient InstructionsAngelina Van FNP - 07/04/2019 9:00 AM EST07/04/2019 Date of Surgery: 07/12/19 Procedure: left arm shuntogram, possible angioplasty/stenting Your Surgeon: Dr. Ernandez One day before surgery: 07/11/19 Nothing to eat or drink after midnight Continue taking all medications by mouth Shower with Endur soap in the evening Day of surgery: 07/12/19 Nothing to eat or drink Take all of your blood pressure and cardiac medications you normally take in the morning with a sip of water If taking insulin take half of your long-acting (NPH) and do not take your regular insulin Come to Ambulatory Surgery Waiting Area on the 4th floor of the [facility] at the indicated time: 10:00 am YOU MUST HAVE A SENIOR BRANCH MANAGER TO DRIVE YOU HOME AFTER THE PROCEDURE Preadmission services will call you to review insurance and nursing history. If you are not contacted by the day prior to your surgery, please contact them at [phone]. Please expect a 1-2 hour wait in prep and recovery prior to your surgery or procedure. The doctor will see your family after the procedure. If any questions call our office at [phone] or [phone] documented in this encounter Progress Notes Zakiya Ernandez MD - 07/04/2019 9:00 AM EST PATIENT: Oscar Peacock : 1985 DATE OF SERVICE: 07/04/2019 REFERRING PRACTITIONER: Zakiya Ernandez PRIMARY CARE PROVIDER: Shania Beyer Subjective CHIEF COMPLAINT: Chief Complaint Patient presents with Follow Up Subjective HISTORY OF PRESENT ILLNESS: Oscar Peacock is a 33-y.o. male who is seen today in follow up s/p right av leg graft with Percutaneous balloon angioplasty of the distal graft and the venous anastomosis of the right leg bovine carotid graft with radiology supervision interpretation. 3. Percutaneous standard balloon angioplasty of the right iliac veins with radiology supervision interpretation. 4. Percutaneous standard balloon angioplasty inferior vena cava with radiology supervision interpretation by me on 06/30/19. He reports pulling clots and increased venous pressures. He has history of IVC stenosis. He is most recently s/p right leg shuntogram with angioplasty of right iliac vein on 03/31/19. He is s/p right leg shuntogram with angioplasty of right iliac vein and inferior vena cava on 03/08/19. He notes he was admitted to [facility] 03/15/19 for stabbing abdominal pain and Ct scan showed partial bowel obstruction. The bowel obstruction was treated with NG tube, iv fluids and pain management. He has ESRD and does home dialysis. He alternates between left arm fistula and right leg bovine carotid artery. He is s/p right leg bovine carotid graft on . he is s/p right leg PTFE graft on12/13/12 which occluded. PREVIOUS DIAGNOSTICS: 06/23/19 IMPRESSIONS: Indication: Left arm numbness. Follow up left upper arm loop graft. There is calcific plaque seen in multiple areas throughout the graft. There are increased velocitiesseen at the venous anastomosis into the proximal graft near the anastomosis. Shadowing limits evaluation of the graft. Velocities are as follows: Inflow Artery: cm/s Mid: 160/42 Dist: 68/25 Arterial Anastomosis: 65/27cm/s Graft: cm/s Prox: 68/31 Mid: 58/30 Dist: 48/26 Venous Anastomosis: 703/354cm/s Outflow Vein: cm/s Prox: 115/46 The increased velocity at the venous anastomosis appears to have increased since the previous exam completed on 05/25/19. IMPRESSIONS: Indication: High arterial pressures in the right femoral artery to femoral vein loop graft. The graft appears widely patent. Inflow Artery: cm/s Prox: 170/91 Mid: 250/145 Dist: 165/90 Arterial Anastomosis: 256/139cm/s Graft: cm/s Prox: 241/144 Mid: 162/95 Dist: 132/76 Venous Anastomosis: 307/176cm/s Outflow Vein: cm/s Prox: 127/78 Mid: 57/28 Dist: 48/29 There is little to no change since the previous exam completed on 03/07/19. 03/07/19 IMPRESSIONS: Patient has history of right lower extremity superficial femoral arter to femoral vein AV-graft with thrombectomy and angioplasty 09/30/2018. Duplex imaging of the right lower extremity AV-graft was performed and appears widely patent with slightly increased velocities at the arterial anastomosis level. Velocities are as follows: Inflow Artery: cm/s ANTITANK ASSAULT GUNNER:142/66 SFA prox: 210/118 prox-mid:227/146 Arterial anastomosis: 499/227* no significant narrowing visualized. Graft: Prox: 238/164 Mid: 160/98 Dist: 314/212 Venous anastomosis: 317/166 Outflow Vein: Prox: 140/73 Mid: 107/47 Dist: 107/75 Past Medical History: Diagnosis Date Anemia in chronic kidney disease(285.21) End stage renal disease (HCC) renal transplantx2. regected. Has dialysis [address] Orantes Fractures Hypertension Oligonephronia Peripheral neuropathy Polycystic kidney Renal hypoplasia Secondary hyperparathyroidism (of renal origin) Past Surgical History: Procedure Laterality Date KIDNEY TRANSPLANT 1985 & 1994 ALSO EXPLANTED- PARATHYROIDECTOMY 2002 [place] INTRO AV SHUNT Right 02/06/2015 Procedure: Shuntogram RIGHT lower extremity with balloon angioplasty RIGHT iliac vein, RIGHT venogram; Surgeon: Zakiya Ernandez MD; Location: [facility] MAIN OR LA INTRO AV SHUNT N/A 04/19/2015 Procedure: RIGHT LOWER EXTREMITY SHUNTOGRAM WITH VENOGRAM,ANGIOPLASTY; Surgeon : Zakiya Ernandez MD; Location: [facility] MAIN OR LA INTRO AV SHUNT Right 05/20/2015 Procedure: RIGHT LOWER EXTREMITY SHUNTOGRAM WITH VENOGRAM AND ANGIOPLASTY; Surgeon: Zakiya Ernandez MD; Location: [facility] MAIN OR LA INTRO AV SHUNT Left 08/29/2015 Procedure: PERCUTANEOUS THROMBECTOMY OF LEFT UPPER ARM SHUNT WITH BALLOON ANGIOPLASTY; Surgeon: Milana Valadez MD; Location: [facility] MAIN OR LA VENOUS ANGIOPLASTY 7.3.12 left subclavian LA ANGIO AV SHUNT COMPLETE EVAL Right 01/29/2017 Procedure: FISTULOGRAM AV right leg shuntogram with angioplasty ; Surgeon: Kalpana Caban MD; Location: [facility] MAIN OR LA APPENDECTOMY LA CREAT AV FISTULA,AUTOGENOUS GRAFT LA INTRO CATH DIALYSIS CIRCUIT DX ANGRPH FLUOR S&I Right 01/05/2018 Procedure: RIGHT LEG SHUNTOGRAM WITH BALLOON ANGIOPLASTY; Surgeon: Zakiya Ernandez MD; Location: [facility] MAIN OR LA INTRO CATH DIALYSIS CIRCUIT W/TRLUML BALO ANGIOP Right 06/09/2017 Procedure: Fistulogram RIGHT leg with balloon angioplasty and inferior vena cavagram.; Surgeon: Zakiya Ernandez MD; Location[facility] OR LA THROMBECTOMY A-V GRAFT, EXC HEMODIALYSIS Right 01/21/2018 Procedure: right leg shuntofram with thromolysis, thrombectomy; Surgeon: Zakiya Ernandez MD; Location: [facility] MA[facility] OR Current Outpatient Medications Medication Sig acetaminophen (TYLENOL) 325 MG Oral Tab Take 2 Tabs by mouth EVERY SIX HOURS NEEDED (Pain). CALCITRIOL PO Take 2 mcg by mouth DAILY. Calcium Carbonate (CALCIUM-CARB 600 PO) Take 640 mg by mouth THREE TIMES DAILY WITH MEALS. ciprofloxacin (CIPRO) 500 MG Oral Tab Take 1 Tab by mouth DAILY. diphenhydrAMINE (BENADRYL) 50 MG Oral Cap Take 1 Cap by mouth ONE TIME for 1 dose. Take 1 cap1 hour prior to procedure EPINEPHrine (EPIPEN IJ) by Injection route DIRECTED. epoetin efraín 2,500 units Inject beneath the skin. Every Wednesday & Wed. Indications: as directed gabapentin (NEURONTIN) 100 MG Oral Cap Take 100 mg by mouth THREE TIMES DAILY. predniSONE (DELTASONE) 50 MG Oral Tab Take 1 Tab by mouth DAILY. Take one tablet 13 hours, 7 hours and 1 hour prior to the procedure sodium polystyrene (KAYEXALATE) Oral Powder Take 15 g by mouth NEEDED. warfarin (COUMADIN) 2 MG Oral Tab Take 1 Tab by mouth DAILY. No current facility-administered medications for this visit. Allergies Allergen Reactions Wasp Venom [Phenol-Wasp Venom Protein] Respiratory Reaction Also caused hives, hypertension Ancef [Cefazolin Sodium] Hives Iv Dye [Ct Dye] Anaphylaxis Keflex Hives Vancomycin Other nadya syndrome Review of Systems - Negative except as stated in the hpi all other pertinent systems are negative Objective PHYSICAL EXAMINATION: VITALS: BP 140/90 (BP Location: Right arm, Patient Position: Sitting) | Pulse 80 | Temp 98.1 F (36.7 C) (Tympanic) | Ht 5' 2" (1.575 m) | Wt 149 lb 14.6 oz (68 kg) | BMI 27.42 kg/m GENERAL: awake, alert, oriented. HEART: regular rate and rhythm LUNGS: clear to auscultation bilaterally EXTREMITIES: arteriovenous graft right leg with good bruit and thrill and left arm arteriovenous fistula with good thrill and bruit. Bilateral lower extremities with very mild edema. DIAGNOSTICS: 07/04/19 IMPRESSIONS: Indication: sluggish flow during dialysis treatment of right femoral artery to femoral vein loop graft. Duplex imaging of the right lower extremity femoral artery to femoral vein AV- graft was performed and appears widely patent with no evidence of significant narrowing or increased velocities. The graft volume flow average was 2960mL/min Velocities are as follows: Inflow Artery: cm/s Prox: 300/211 Mid: 296/192 Dist: 265/168 Arterial Anastomosis: 589/345cm/s no significant narrowing visualized Graft: cm/s Prox: 298/198 Prox-mid:239/163 Mid: 133/88 Mid-dist: 167/122 Dist: 411/276 no significant narrowing Venous Anastomosis: 369/219cm/s Outflow Vein: cm/s Prox: 108/57 Mid: 105/69 Dist: 102/69 There appears to be no significant change compared to the previous exam of 06/23. Plan IMPRESSION AND PLAN: ICD-9-CM ICD-10-CM 1. AV graft stenosis, sequela 909.3 T82.858S VL LOWER EXTREMITY DUPLEX ARTERIES RIGHT 2. Thrombus 453.9 I82.90 warfarin (COUMADIN) 2 MG Oral Tab 3. Allergy to IVP dye, subsequent encounter V58.89 T50.995D diphenhydrAMINE ( BENADRYL) 50 MG Oral Cap predniSONE (DELTASONE) 50 MG Oral Tab Oscar Peacock has ESRD with hemodialysis through right leg bovine carotid artery graft placed 3 1/2 year ago. On the duplex ultrasound today the right leg graft appears to be widely patent with excellent flow volume so I am not sure about the etiology of the increased venous pressure and thrombusformation other than the graft with actually getting older and it may need replacement. I recommended starting a low-dose Coumadin to decrease the amount of thrombus formation. In the meantime the patient requested us to proceed with an angioplasty of his left upper extremity graft which she is using intermittently and as a back-up. On a recent duplex ultrasound she was found to have a recurrent stenosis in the left upper arm graft. This was angioplastied last I discussed proceeding with left arm shuntogram with possible angioplasty/ stenting. The risks, options and benefits were discussed to include but not limited to bleeding, infection, injury to blood vessel or graft, occlusion of graft, reaction to medications or anesthesia. He verbalized understanding. He has ct dye allergy so we will premedicate per protocol with prednisone and benadryl. RX sent to pharmacy. The patient will be scheduled for surgery. Patient Instructions 07/04/2019 Date of Surgery: 07/12/19 Procedure: left arm shuntogram, possible angioplasty/stenting Your Surgeon: Dr. Ernandez One day before surgery: 07/11/19 Nothing to eat or drink after midnight Continue taking all medications by mouth Shower with Endur soap in the evening Day of surgery: 07/12/19 Nothing to eat or drink Take all of your blood pressure and cardiac medications you normally take in the morning with a sip of water If taking insulin take half of your long-acting (NPH) and do not take your regular insulin Come to Ambulatory Surgery Waiting Area on the 4th floor of the [facility] at the indicated time: 10:00 am YOU MUST HAVE A SENIOR BRANCH MANAGER TO DRIVE YOU HOME AFTER THE PROCEDURE Preadmission services will call you to review insurance and nursing history. If you are not contacted by the day prior to your surgery, please contact them at [phone]. Please expect a 1-2 hour wait in prep and recovery prior to your surgery or procedure. The doctor will see your family after the procedure. If any questions call our office at [phone] or [phone] Author: Zakiya Ernandez MD 07/04/2019 11:43 documented in this encounter Plan of Treatment Date Type Specialty Care Team Description 07/12/[address] [facility] Zakiya Ernandez Short Procedure MD [place] [address] [place] [address] 07/12/[address] [facility] Zakiya Ernandez Left arm shuntogram MD Ray[place] possible [address] [place] [place] angioplasty/stenting [place] [address] 08/07/2019 Office Visit Gastroenterology Mert Watsno MD [address] [place] [address] [phone] Name Type Priority Associated Diagnoses Date/Time VL LOWER EXTREMITY Imaging Routine AV graft stenosis, 07/04/2019 10:15 AM DUPLEX ARTERIES RIGHT sequela EST Name Type Priority Associated Diagnoses Order Schedule CASE REQUEST OPERATING Procedures Routine AV graft stenosis, Ordered: 07/04 ROOM sequela Health Maintenance Due Date Last Done Comments MEDICARE ANNUAL WELLNESS VISIT 1985 MENINGOCOCCAL VACCINE IMM (1 - 1987 Risk 2-dose series) PNEUMOCOCCAL 0-64 YRS (1 of 3 - 1991 PCV13) DEPRESSION SCREENING 1997 INFLUENZA VACCINE (#1) 2019 07/26/2018 HPV IMMUNIZATION SERIES Aged Out No longer eligible based on patient's age to complete this topic documented as of this encounter Implants Implanted Type Area Manager Php Device Shelf Model / Identifier Expiration Serial / Lot Date Street Graft Regular Wall 6x40 - [id number] Left: Arm [employer] [id number] / Implanted: Qty: 1 on 03/10/2012 at [facility] [employer] / [id number] Propaten Graft Right: [employer] [id number] / Implanted: Qty: 1 on 12/13/2012 at [facility] [employer] / [id number] Description:[id number] Artegraft Collagen Vascular Graft Right: Leg 02/26/2018 [id number] / Implanted: Qty: 1 on 08/26/2015 by Zakiya Ernandez MD at [facility] / [id number] Description:[id number] documented as of this encounter Results Not on filedocumented in this encounter Visit Diagnoses Diagnosis AV graft stenosis, sequela - Primary Thrombus Embolism and thrombosis of unspecified site Allergy to IVP dye, subsequent encounter documented in this encounter Insurance Payer Benefit Plan / Subscriber ID Effective Dates Phone Address Type Group MEDICARE MEDICARE PART A xxxxxxxxxxx 1986-Present Medicare & B MEDICAID [facility] xxxxxxxx 2016-Present [place] documented as of this encounter Advance Directives Code Status Date Activated Date Inactivated Comments Full Code 05/25/2019 3:43 AM 06/30/2019 7:30 AM Does the patient have decision making capacity? Yes Order was discussed with: Patient I discussed all options and patient/surrogate requested and agreed to: Full Code
--- OUTSIDE RECORDS SUMMARY | 2019-07-20 19:22 | XMS REPORT | Summary of Care ---
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 Chetna Ventura MD Anticoagulation [address] [place] [id number] Phone: Scheduling Instructions Previous INR lab results: Lab Results Component Value Date INR 1.16 (H) 07/13/2019 INR (RALS) 1.2 07/12/2019 Current Facility-Administered Medications: acetaminophen (TYLENOL) tablet 650 mg, 650 mg, Oral, Q6H, Manjula Meneses MD, 650 mg at 07/12/19 1915 calcitriol (ROCALTROL) capsule 2 mcg, 2 mcg, Oral, DAILY, Stephanie Jay MD, 2 mcg at 07/13/19 0832 calcium carbonate (CALTRATE) tablet 600 mg, 600 mg, Oral, TID, Stephanie Jay MD, 600 mg at 07/13/19 0832 gabapentin (NEURONTIN) capsule 100 mg, 100 mg, Oral, TID, Stephanie Jay MD, 100 mg at 07/13/19 0832 heparin in dextrose 5% IV premix 100 units/mL, 1,100 Units/hr, Intravenous, Titrate, Manjula Meneses MD, Last Rate: 12 mL/hr at 07/13/19 1300, 1,200 Units/ hr at 07/13/19 1300 heparin injection [id number] UNIT/ML, 5,000 Units, Intravenous Push, X1, Manjula Meneses MD heparin injection [id number] UNIT/ML, 1,300-3,800 Units, Intravenous Push, Q6H PRN, Manjula Meneses MD, 3,800 Units at 07/13/19 0552 morphine (PF) syringe 2 mg, 2 mg, Intravenous Push, Q2H PRN, Stephanie Jay MD, 2 mg at 07/13/19 1137 normal saline bolus 100 mL, 100 mL, Injection, Q30M PRN, Huseyin Clinton MD OXYcodone (OXY-IR,OXY-FAST) immediate release tablet 10 mg, 10 mg, Oral, Q4H PRN, Stephanie Jay MD, 10 mg at 07/13/19 1137 OXYcodone (OXY-IR,OXY-FAST) immediate release tablet 5 mg, 5 mg, Oral, Q4H PRN, Manjula Meneses MD, 5 mg at 07/12/19 1843 [] Teach patient/family about Coumadin, , , One Time AND warfarin patient, , Does not apply, DAILY 1400, Manjula Meneses MD (Routine) Status Reason Specialty Diagnoses / Procedures Referred By Contact Referred To Contact Manjula Meneses MD [address] [place] [address] Scheduling Instructions Reason for Consult: Needs dialysis tomorrow. Patient has 2 AV fistula sites for access that he uses for home dialysis. Patient Background: Oscar Peacock is a 33-y.o. male Principal Problem: AV graft stenosis, sequela No components found for: CREATININE CLEARANCE Reason for Visit Auth/Cert Status Reason Specialty Diagnoses / Procedures Referred By Contact Referred To Contact Diagnoses Stenosis of other vascular prosthetic devices, implants and grafts, sequela Procedures WI INTRO CATH DIALYSIS CIRCUIT DX ANGRPH FLUOR S&I WI INTRO CATH DIALYSIS CIRCUIT W/TRLUML BALO ANGIOP WI INTRO CATH DIALYSIS CIRCUIT W/TCAT PLMT IV STENT Encounter Details Date Type Department Care Team Description 07/12/2019 - Hospital Encounter [facility] Patti Jarrett Observation 07/13/2019 [address] [place] [address] [address] [phone] [place] [address] Allergies Active Allergy Reactions Severity Noted Date Comments Cefazolin Sodium Hives 02/15/2012 Ct Dye Anaphylaxis 02/15/2012 Keflex Hives 02/15/2012 Vancomycin Other 02/15/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 Every directed Wednesday & Wed. Indications: as directed sodium polystyrene Take 15 g by mouth 0 Active (KAYEXALATE) Oral NEEDED. Powder Calcium Carbonate Take 640 mg by 0 Active (CALCIUM-CARB 600 PO) mouth THREE TIMES DAILY WITH MEALS. EPINEPHrine (EPIPEN by Injection route 0 Active IJ) DIRECTED. CALCITRIOL PO Take 2 mcg by [...] 07/04/2019 Active 50 MG Oral mouth DAILY. Take TabIndications: one tablet 13 Allergy to IVP dye, hours, 7 hours and subsequent encounter 1 hour prior to the procedure OXYcodone Take 1 Tab by 10 Tab 0 07/14/2019 Active (OXY-IR,OXY-FAST) 5 MG mouth EVERY FOUR Oral Tab HOURS NEEDED (Breakthrough). Max Daily Amount: 30 mg. documented as of this encounter (statuses as of 07/15/2019) Active Problems Problem Noted Date AV graft stenosis, sequela 06/23/2019 Overview: Added automatically from request for surgery [id number] Sepsis due to cellulitis 05/29/2019 Iliac vein stenosis, left 03/31/2019 Stenosis of inferior vena cava 03/27/2019 Overview: Added automatically from request for surgery [id number] AV shunt thrombosis, subsequent encounter 09/27/2018 Overview: Added automatically from request for surgery [id number] AV shunt stenosis, subsequent encounter 09/06/2018 Overview: Added automatically from request for surgery [id number] Mechanical complication of arteriovenous surgical shunt 08/02/2018 Overview: Added automatically from request for surgery [id number] Cellulitis 05/24/2018 Overview: Cat scratch disease vs Cellulitis in setting of Fistula proximity No systemic signs of infection, no WBC elevation Patient may have received IV Clindamycin at [place] without benefit for one day IV Ciprofloxacin and IV Flagyl in ED, Change to IV Unasyn and IV Doxycycline Vascular consulted for fistula assessment and care Infectious disease consulted at this time Blood cultures pending AV graft thrombosis, subsequent encounter 01/17/2018 Overview: Added automatically from request for surgery [id number] Arteriovenous graft stenosis, sequela 12/14/2017 Overview: Added automatically from request for surgery [id number] Stage 4 chronic kidney disease 12/14/2017 Overview: Added automatically from request for surgery [id number] Inferior vena caval stenosis 10/07/2016 End stage renal disease 02/06/2015 Iliac vein stenosis, right 02/06/2015 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 10/30/2013 History of shortness of breath 07/10/2013 Mechanical [...] as of this encounter (statuses as of 07/15/2019) Resolved Problems Problem Noted Date Resolved Date Subclavian vein stenosis, 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 03/01/2012 Subclavian vein stenosis, 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 03/01/2012 documented as of this encounter (statuses as of 07/15/2019) Immunizations Name Administration Dates Next Due Influenza [...] Sign Reading Time Taken Comments Blood Pressure 104/67 07/13/2019 6:25 PM EST Pulse 90 07/13/2019 6:15 PM EST Temperature 36.7 07/13/2019 6:15 PM EST C (98 F) Respiratory Rate 18 07/13/2019 6:15 PM EST Oxygen Saturation 100% 07/13/2019 12:30 PM EST Inhaled Oxygen Concentration - - Weight 70.9 kg (156 lb 4.8 oz) 07/12/2019 1:48 PM EST Height 157.5 cm (5' 2") 07/12/2019 1:48 PM EST Body Mass Index 28.59 07/12/2019 1:48 PM EST documented in this encounter Discharge Summaries Hugo Ventura MD - 07/13/2019 6:15 AM EST [facility] [id number] [facility] Summary Patient ID: Oscar Peacock [id number] 33-y.o. 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 Mechanical complication due to other implant and internal device, not elsewhere classified History of shortness of breath 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 male admitted on 07/12/19 to [facility] with occluded left-sided AV fistula.. He was taken to the OR on 2018 and underwent Left arm shuntogram balloon angioplasty (Left ). The procedure was uneventful and the patient tolerated it well. Postoperatively,he was transferred from PACU in stable condition. Patient complained of slight numbness of his fingers on the left side. Thorough imaging studies showed complete patent arteries in the left arm and right arm, with excellent wrist brachial index. The patient stated improvement in numbness compared to yesterday upon discharge. While at the hospital he received tylenol for pain management, heparin injection for DVT prophylaxisand therapeutic reasons. He received a regular diet. Upon discharge the patient will resume his warfarin and an anticoagulation clinic appointment has been made for him. Patient also received hemodialysis while at the hospital with good tolerance Upon discharge Oscar Peacock is tolerating a regular diet without nausea/ emesis, pain is controlled on oral medications, he is ambulating independently, and is voiding spontaneously. 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 Oscar Peacock will follow up with Dr. Randolph vascular surgery clinic for post operative appointment. BP 140/75 Pulse 82 Temp 97.5 F (36.4 C) (Temporal) Resp 16 Ht 5' 2" (1.575 m) Wt 156 lb4.8 oz (70.9 kg) SpO2 100% BMI 28.59 kg/m2 Consults: CONSULT TO NEPHROLOGY Treatments: analgesia DVT Prophylaxis IV hydration Imaging: Sp Arteriovenous Fistulagram Result Date: 07/03/2019 Procedure(s): SP ARTERIOVENOUS FISTULAGRAM, SP PERIPHERAL ANGIOPLASTY Date of service: 06/30/2019 11:56 AM Provided clinical information: 33 years, Male, "right leg shuntogram" Reason for exam: Dysfunctional right thigh AV graft with increased pressures during dialysis. Preoperative diagnoses: 1.Dysfunctional right thigh AV graft with increased pressures during dialysis. 2. End-stage renal disease on dialysis. POSTOPERATIVE DIAGNOSIS: 1. Greater than 50% stenosis right leg bovine carotid graft venousanastomosis. 2. Greater than 50% stenosis right iliac veins. 3. Greater than 50% stenosis inferior vena cava. 4. End-stage renal disease on dialysis. PROCEDURE: 1. Percutaneous ultrasound- guided accessto the right leg bovine carotid graft with shuntogram with visualization of the entire graft from the arterial anastomosis to the venous anastomosis with radiology supervision and interpretation including the duplex ultrasound used for access. 2. Percutaneous balloon angioplasty of the distal graft and the venous anastomosis of the right leg bovine carotid graft with radiology supervision interpretation. 2. Placement of guidewire and catheter progressively into the right iliac veins and inferior vena cava, with right lower extremity, pelvic and inferior vena cava venogram with radiology supervisionand interpretation. 3. Percutaneous standard balloon angioplasty of the right iliac veins with radiology supervision interpretation. 4. Percutaneous standard balloon angioplasty inferior vena cava with radiology supervision interpretation. Surgeon:Patti Randolph MD Anesthesia: General anesthesia. Estimated blood loss: Less than 50 mL. Complications: None. DISPOSITION: The patient tolerated procedurewell and she was transferred to recovery room extubated in stable condition. Indication of procedure: This is a 33 years old gentleman who presented to the vascular clinic with complains of some increased pressures in the graft during dialysis. History of multiple interventions for stenosis into the inferior vena cava and iliac veins with multiple previous dialysis accesses. I discussed with the patient proceeding with a shuntogram as well as right as well as right lower extremity pelvic and inferior vena cava venogram with intervention if areas of stenosis are found. We have discussed in detail the benefits, alternatives, risk and potential complications. All questions were answered. Patient seems to understand and requested the procedure be done. FINDINGS: The entire shunt was visualized from the arterial anastomosis to the venous anastomosis on the shuntogram and there were no evidence of stenosis except for the venous anastomosis where there was a greater than 50% stenosis. This responded well to balloon angioplasty with resolution, multiple interstitial or extravasation. There was a greater than 50 % stenosis in the iliac veins on the right just before the iliac veins confluence which responded well to balloon angioplasty with improvement, no flow -limiting dissection or extravasation. There was a greater than 50% stenosis into inferior vena cava which responded well to balloon angioplasty with improvement, no flow-limiting dissection or extravasation. Procedure in detail: After proper identification the patient was brought to the endovascular suite and placed supine on endovascular table. IV antibiotics were administrated. The patient received corticosteroids and Benadryl for prevention of dye-induced allergies. General anesthesia was delivered. The right thigh dialysis graft was examined with the ultrasound with the findings are on findings. We have chosen an access point on the venous side of the graft. Access obtained into the graft using a micropuncture needle and real-time ultrasonic guidance and a micropuncture wire was fed in followed by micropuncture sheath. We did a shuntogram which showed a greater than 50% stenosis in the venous anastomosis as above. The right femoralvein, right common femoral vein are widely patent no stenosis. I advanced a Magic torque wire through the micropuncture sheath and then placed a 7 Mauritanian sheath which we flushed with heparinized saline. I angioplasty the venous anastomosis and the distal end of the graft with a 8mm x 40 mm Patterson balloon with good visual result as above. With the balloon inflated we did a retrograde shuntogram visualizing the entire graft and arterial anastomoses and it showed no other areas of stenosis including in the arterial anastomosis. I advanced the Magic torque wire up to the right external iliac vein first and I placed an angled glidecatheter at this level and did the pelvic venogram which demonstrated the above areas of stenosis. I then advanced the Magic torque wire and the catheter into the inferior vena cava and did an inferior vena cava venogram. The patient was systemically heparinized at this point .I angioplasty the area of stenosis into the iliac veins with 8 mm x 40 mm followed by the 10 mm x 40 mm Patterson balloon. I angioplasty the inferior vena cava with a 10 mm x 40 mm Patterson balloon with prolonged inflations . We obtained a good visual result as above with improvement in the appearance of the stenosis also improved flow with less collateral flow visualized. I decided to complete the procedure at this point. The wire was removed and a purstring suture of 3-0 Prolene on a CV 25 needlewas placed around the access side, the access sheath was removed and the suture was tied up with good hemostasis. The heparin was not reversed. The palpable thrill in the graft was improved with prior to the procedure. The patient tolerated the procedure well and he was transferred to recovery room instable condition. 1. Recurrent stenosis in the right thigh dialysis graft venous anastomosis > 50% good result after angioplasty as above. 2. Recurrent greater than 50% stenosis right iliac veins with good result after angioplasty as above. 3. Recurrent greater than 50% stenosis inferior vena cava with good result after angioplasty as above. Procedure and materials: Standard protocol. Comparison studies: None. Urgency: Routine. This is a routine medical imaging report. Recommendation: No specific imaging recommendation. Signed by Patti Randolph MD on 07/03/2019 8:00 AM Sp Peripheral Angioplasty Result Date: 07/03/2019 Procedure(s): SP ARTERIOVENOUS FISTULAGRAM, SP PERIPHERAL ANGIOPLASTY Date of service: 06/30/2019 11:56 AM Provided clinical information: 33 years, Male, "right leg shuntogram" Reason for exam: Dysfunctional right thigh AV graft with increased pressures during dialysis. Preoperative diagnoses: 1.Dysfunctional right thigh AV graft with increased pressures during dialysis. 2. End-stage renal disease on dialysis. POSTOPERATIVE DIAGNOSIS: 1. Greater than 50% stenosis right leg bovine carotid graft venousanastomosis. 2. Greater than 50% stenosis right iliac veins. 3. Greater than 50% stenosis inferior vena cava. 4. End-stage renal disease on dialysis. PROCEDURE: 1. Percutaneous ultrasound- guided accessto the right leg bovine carotid graft with shuntogram with visualization of the entire graft from the arterial anastomosis to the venous anastomosis with radiology supervision and interpretation including the duplex ultrasound used for access. 2. Percutaneous balloon angioplasty of the distal graft and the venous anastomosis of the right leg bovine carotid graft with radiology supervision interpretation. 2. Placement of guidewire and catheter progressively into the right iliac veins and inferior vena cava, with right lower extremity, pelvic and inferior vena cava venogram with radiology supervisionand interpretation. 3. Percutaneous standard balloon angioplasty of the right iliac veins with radiology supervision interpretation. 4. Percutaneous standard balloon angioplasty inferior vena cava with radiology supervision interpretation. Surgeon:Patti Randolph MD Anesthesia: General anesthesia. Estimated blood loss: Less than 50 mL. Complications: None. DISPOSITION: The patient tolerated procedurewell and she was transferred to recovery room extubated in stable condition. Indication of procedure: This is a 33 years old gentleman who presented to the vascular clinic with complains of some increased pressures in the graft during dialysis. History of multiple interventions for stenosis into the inferior vena cava and iliac veins with multiple previous dialysis accesses. I discussed with the patient proceeding with a shuntogram as well as right as well as right lower extremity pelvic and inferior vena cava venogram with intervention if areas of stenosis are found. We have discussed in detail the benefits, alternatives, risk and potential complications. All questions were answered. Patient seems to understand and requested the procedure be done. FINDINGS: The entire shunt was visualized from the arterial anastomosis to the venous anastomosis on the shuntogram and there were no evidence of stenosis except for the venous anastomosis where there was a greater than 50% stenosis. This responded well to balloon angioplasty with resolution, multiple interstitial or extravasation. There was a greater than 50 % stenosis in the iliac veins on the right just before the iliac veins confluence which responded well to balloon angioplasty with improvement, no flow -limiting dissection or extravasation. There was a greater than 50% stenosis into inferior vena cava which responded well to balloon angioplasty with improvement, no flow-limiting dissection or extravasation. Procedure in detail: After proper identification the patient was brought to the endovascular suite and placed supine on endovascular table. IV antibiotics were administrated. The patient received corticosteroids and Benadryl for prevention of dye-induced allergies. General anesthesia was delivered. The right thigh dialysis graft was examined with the ultrasound with the findings are on findings. We have chosen an access point on the venous side of the graft. Access obtained into the graft using a micropuncture needle and real-time ultrasonic guidance and a micropuncture wire was fed in followed by micropuncture sheath. We did a shuntogram which showed a greater than 50% stenosis in the venous anastomosis as above. The right femoralvein, right common femoral vein are widely patent no stenosis. I advanced a Magic torque wire through the micropuncture sheath and then placed a 7 Mauritanian sheath which we flushed with heparinized saline. I angioplasty the venous anastomosis and the distal end of the graft with a 8mm x 40 mm Patterson balloon with good visual result as above. With the balloon inflated we did a retrograde shuntogram visualizing the entire graft and arterial anastomoses and it showed no other areas of stenosis including in the arterial anastomosis. I advanced the Magic torque wire up to the right external iliac vein first and I placed an angled glidecatheter at this level and did the pelvic venogram which demonstrated the above areas of stenosis. I then advanced the Magic torque wire and the catheter into the inferior vena cava and did an inferior vena cava venogram. The patient was systemically heparinized at this point .I angioplasty the area of stenosis into the iliac veins with 8 mm x 40 mm followed by the 10 mm x 40 mm Patterson balloon. I angioplasty the inferior vena cava with a 10 mm x 40 mm Patterson balloon with prolonged inflations . We obtained a good visual result as above with improvement in the appearance of the stenosis also improved flow with less collateral flow visualized. I decided to complete the procedure at this point. The wire was removed and a purstring suture of 3-0 Prolene on a CV 25 needlewas placed around the access side, the access sheath was removed and the suture was tied up with good hemostasis. The heparin was not reversed. The palpable thrill in the graft was improved with prior to the procedure. The patient tolerated the procedure well and he was transferred to recovery room instable condition. 1. Recurrent stenosis in the right thigh dialysis graft venous anastomosis > 50% good result after angioplasty as above. 2. Recurrent greater than 50% stenosis right iliac veins with good result after angioplasty as above. 3. Recurrent greater than 50% stenosis inferior vena cava with good result after angioplasty as above. Procedure and materials: Standard protocol. Comparison studies: None. Urgency: Routine. This is a routine medical imaging report. Recommendation: No specific imaging recommendation. Signed by Patti Randolph MD on 07/03/2019 8:00 AM Vl Body Measure Judy Multiple Result Date: 07/13/2019 NAME: Ayush Moore BN: [id number] VASCULAR LAB [facility] STUDY DATE: 07/13/[address] [facility] [id number] : 85 AP : Dr Patti Randolph MD REFERRING PROVIDER: Rehan Roy EXAMINATION: Arterial - Upper INDICATION: Pain in limb -729.5 TECHNOLOGIST: Shanel GAITAN RVT IMPRESSIONS: Pain left arm PVRs of the bilateral upper arms, forearms and 3rd digits are normal. Dopplers of the right brachial and ulnar arteries are triphasic. The right radial could not be identified. Dopplers of the left brachial, radial and ulnar arteries are triphasic. Rt JUDY 1.1 Rt TBI 1.1 LtABI 1.2 Lt TBI 1.0 PPGs were done on all 10 digits. All five digits of the right hand are normal. PPGs of the left 2nd, 3rd and 4th digits are mild and moderate in the 1st and 5th digit. There is no previous exam available for comparison. Vl Lower Extremity Duplex Arteries Right Result Date: 07/09/2019 NAME: Ayush Moore BN: [id number] VASCULAR LAB [facility] STUDY DATE: 07/04/[address] [facility] [id number] : 85 AP : Dr Patti Randolph MD REFERRING PROVIDER: Oma Sigala EXAMINATION: Arterial - Lower INDICATION: Complication of AVF/Graft -996.73 TECHNOLOGIST: Janessa Cohn(salas)rvt IMPRESSIONS: Indication: sluggish flow during dialysis treatment of right femoral artery to femoralvein loop graft. Duplex imaging of the right lower extremity femoral artery to femoral vein AV-graft was performed and appears widely patent with no evidence of signifcant narrowing or increased velocities. The graft volume flow average was 2960mL/min Velocities are as follows: Inflow Artery: cm/s Prox: 300/211 Mid: 296/192 Dist: 265/168 Arterial Anastomosis: 589/345cm/s no significant narrowing visualized Graft: cm/s Prox: 298/198 Prox-mid:239/163 Mid: 133/88 Mid-dist: 167/122 Dist: 411/276 no significant narrowing Venous Anastomosis: 369/219cm/s Outflow Vein: cm/sProx: 108/57 Mid: 105/69 Dist: 102/69 There appears to be no signficant change compared to theprevious exam of 06/23/2019. Vl Lower Extremity Duplex Arteries Right Result Date: 06/24/2019 NAME: Ayush Moore BN: [id number] VASCULAR LAB [facility] STUDY DATE: 06/23/[address] [facility] [id number] : 85 AP : Dr Cy Davila MD, RVT, FACS REFERRING PROVIDER: Oma Sigala EXAMINATION: Arterial - Lower INDICATION: Surgical follow-up -V58.49 TECHNOLOGIST: Angelina Rosario IMPRESSIONS: Indication: High arterial pressures in the right femoral artery to femoral vein loop graft. The graft appears widely patent. Inflow Artery: cm/s Prox: 170/91 Mid: 250/145 Dist: 165/90 Arterial Anastomosis: 256/139cm/s Graft : cm/s Prox: 241/144 Mid: 162/95 Dist: 132/76 Venous Anastomosis: 307/176cm/s Outflow Vein: cm/s Prox: 127/78 Mid: 57/28 Dist: 48/29 There is little to no change since the previous exam completed on 03/07/19. Upper Extremity Duplex Arteries Left Result Date: 07/13/2019 NAME: Ayush Moore BN: [id number] VASCULAR LAB [facility] STUDY DATE: 07/13/19 1 [place] [address] : 85 AP : Dr Patti Randolph MD REFERRING PROVIDER: Rehan Roy EXAMINATION: Arterial - Upper INDICATION: Pain in limb -729.5 TECHNOLOGIST: Shanel GAITAN RVT IMPRESSIONS: Pain in left arm Duplex imaging of the left upper extremity arteries demonstrates widely patent arteries with no evidence of elevated velocities. There is no previous available for comparison. Upper Extremity Duplex Avfistula Left Result Date: 07/13/2019 NAME: Peacock Oscar ARZOLA: [id number] VASCULAR LAB [facility] STUDY DATE: 07/13/19 1 [place] [address] : 85 AP : Dr Patti Randolph MD REFERRING PROVIDER: Rehan Roy EXAMINATION: Arterial - Upper INDICATION: Complication of AVF/Graft -996.73 TECHNOLOGIST: Tori Weiner RDMS RVT IMPRESSIONS: Left arm AVG Duplex imaging of the left AVG demonstrates an increased velocity of 479/253cm/sec with narrowing in the proximal graft. Inflow artery:cm/sec Prx 113/64 Mid 111/64 Dst 97/50 Arterial anastamosis: 190/ 119cm/sec Graft:cm/sec Prx 479/253 Mid 161/74 Dst 103/54 Venous anastamosis:344/ 189cm/sec Outflow vein:cm/sec Prx 80/29 Mid 67/48 Dst 54/19 The increased velocity in the proximal graft is new since the previous exam of 06/23/19. Upper Extremity Duplex Avfistula Left Result Date: 06/25/2019 NAME: Ayush Moore BN: [id number] VASCULAR LAB [facility] STUDY DATE: 06/23/19 1 [place] [address] : 85 AP : Dr Patti Randolph MD REFERRING PROVIDER: Oma Sigala EXAMINATION: Arterial - Upper INDICATION: Surgical Follow-up -V58.49 TECHNOLOGIST: Angelina Rosario IMPRESSIONS: Indication: Left arm numbness. Follow up left upper arm loop graft. There is calcific plaque seen in multiple areas throughout the graft. There are increased velocities seen at the venousanastomosis into the proximal graft near the anastomosis. Shadowing limits evaluation of the graft. Velocities are as follows: Inflow Artery: cm/s Mid: 160/42 Dist: 68/25 Arterial Anastomosis: 65/27cm/s Graft: cm/s Prox: 68/31 Mid: 58/30 Dist: 48/26 Venous Anastomosis: 703/354cm/s Outflow Vein: cm/sProx: 115/46 The increased velocity at the venous anastomosis appears to have increased since the previous exam completed on 05/25/19. Medications: Current Discharge Medication List CONTINUE these medications which have NOT CHANGED acetaminophen 325 MG Tabs Commonly known as: TYLENOL Dose: 650 mg Refills: 0 Take 2 Tabs by mouth EVERY SIX HOURS NEEDED (Pain). CALCITRIOL PO Dose: 2 mcg Refills: 0 Take 2 mcg by mouth DAILY. CALCIUM-CARB 600 PO Dose: 640 mg Refills: 0 Take 640 mg by mouth THREE TIMES DAILY WITH MEALS. ciprofloxacin 500 MG Tabs Commonly known as: CIPRO Dose: 500 mg Quantity: 14 Tab Refills: 0 Take 1 Tab by mouth DAILY. EPIPEN IJ Refills: 0 by Injection route DIRECTED. epoetin efraín 2,500 units For: as directed Refills: 0 Inject beneath the skin. Every Wednesday & Wed. Indications: as directed gabapentin 100 MG Caps Commonly known as: NEURONTIN Dose: 100 mg Refills: 0 Take 100 mg by mouth THREE TIMES DAILY. KAYEXALATE Powd Generic drug: sodium polystyrene Dose: 15 g Refills: 0 Take 15 g by mouth NEEDED. predniSONE 50 MG Tabs Commonly known as: DELTASONE Dose: 50 mg Quantity: 3 Tab Refills: 0 Take 1 Tab by mouth DAILY. Take one tablet 13 hours, 7 hours and 1 hour prior to the procedure warfarin 2 MG Tabs Commonly known as: COUMADIN Dose: 2 mg Quantity: 30 Tab Refills: 0 Take 1 Tab by mouth DAILY. Oxygen or Positive Pressure Devices: none Reason for Admission or Diagnosis: s/p LEFT arm fistulogram with balloon angioplasty (Left Arm) - The AV fistula can be used for dialysis Activity/Restrictions: -Activity as tolerated. No heavy lifting (left arm) >5lbs for 4weeks -No driving while on narcotic pain medications. -Exercise and walk daily. Skin/Wound Care: -You can take off the dressing when you need dialysis. -Keep incision clean and dry. -Observe for redness, swelling, or drainage. -You can shower after the procedure. Soap, shampoo and conditioners are all ok. Let everything runover wound then pat dry. -Do not soak wound via tube bath or swimming Discharge Diet: -Diet that you were on prior to hospitalization. -Please take stool softener while you are on narcotic pain medication since it can cause constipation Special Instructions: -Follow up with in Vascular Surgery Clinic in 1 week for suture removal. (07/21, Wednesday) -Please call the clinic if you have any questions or concerns before your appointment. Total duration of time spent: 40 minutes. Provider Signature: Hugo Ventura MD [facility] attestation - Patti Randolph MD - 07/14/2019 10:23 PM [facility] Supervising MD Documentation Date of Service: 07/13/19 B# [id number] I saw and evaluated the patient. Discussed with resident and agree with the resident's findings andplan as documented in the resident's note. Additional Comments: Doing overall well, occasional episodes of pain and tingling in the fingers which have improved throughout the day. He has normal sensation normal motor function in the left hand. The arterial studies left upper extremity showed normal arterial perfusion. The left axillary artery, brachial artery, radial artery and ulnar artery appears to be widely patent with triphasic Doppler signal on a duplex ultrasound. The patient wants to go home, he knows to come back for any worsening of his symptoms, otherwise we will see him on Wednesday on the planned follow-up. He will continue with the low -dose Coumadin as previously started. Patti Randolph MD Supervising Physiciandocumented in this encounter Discharge Instructions InstructionsArline Mccarthy MD - 07/12/2019Provider's Instructions Reason for Admission or Diagnosis: s/p LEFT arm fistulogram with balloon angioplasty (Left Arm) - The AV fistula can be used for dialysis Activity/Restrictions: -Activity as tolerated. No heavy lifting (left arm) >5lbs for 4weeks -No driving while on narcotic pain medications. -Exercise and walk daily. Skin/Wound Care: -You can take off the dressing when you need dialysis. -Keep incision clean and dry. -Observe for redness, swelling, or drainage. -You can shower after the procedure. Soap, shampoo and conditioners are all ok. Let everything runover wound then pat dry. -Do not soak wound via tube bath or swimming Discharge Diet: -Diet that you were on prior to hospitalization. -Please take stool softener while you are on narcotic pain medication since it can cause constipation Special Instructions: -Follow up with in Vascular Surgery Clinic in 1 week for suture removal. (07/21, Wednesday) -Please call the clinic if you have any questions or concerns before your appointment. Discharge Provider: Arline Mccarthy MD Attending: MD ANA ROSA Time: 20 mins Nurse's Instructions Problems to report to your Physician: Excessive pain or discomfort Fever > 100.5 degrees Difficulty breathing Increase or smell in wound drainage Skin/Wound Care: Skin intact on discharge: Keep dressing clean and dry Medical Equipment/Supplies to help you at home: none Patient's medications returned: N/A Other preprinted instructions reviewed and given:general anes Follow-Up Care: Call to schedule your appointment with Smoking: If you or your caregiver smoke, we recommend that you quit. For smoking cessation help, please callthe National Quit Line at . QUESTIONS OR CONCERNS AFTER DISCHARGE Dietitian Home Care Needs *Please Return Patient Satisfaction Survey* AttachmentsThe following attachments cannot be sent through Care Everywhere.Dental Anesthesia Discharge Instructions (Ukrainian)documented in this encounter Progress Notes Arline Mccarthy MD - 07/13/2019 9:56 AM EST [facility] [place] [address] General Surgery Progress Note Date: 07/13/2019 Patient: Oscar Cleary #: [id number] Attending: PATTI RANDOLPH MD ,MD Subjective: POD 1 Left arm shuntogram balloon angioplasty (Left ) No significant overnight events. Pain is controlled. Numbness and tingling of left finger tips Objective: BP 106/64 Pulse 75 Temp 97.7 F (36.5 C) (Temporal) Resp 16 Ht 5' 2" (1.575 m) Wt 156 lb4.8 oz (70.9 kg) SpO2 100% BMI 28.59 kg/m2 Intake/Output Summary (Last 24 hours) at 07/13/2019 0957 Last data filed at 07/13/2019 0800 Gross per 24 hour Intake 1450 ml Output Net 1450 ml General: NAD Pulm: unlabored breathing Ext: left radial / ulnar triphasic , palpable pulses Lab Results Component Value Date WBC 5.52 07/13/2019 HGB 9.8 (L) 07/13/2019 HCT 31.1 (L) 07/13/2019 PLAT 247 07/13/2019 Lab Results Component Value Date NA 140 07/13/2019 K 5.1 07/13/2019 CL 97 (L) 07/13/2019 CO2 26 07/13/2019 GLUCOSE 139 (H) 07/13/2019 BUN 40 (H) 07/13/2019 CREATININE 10.1 (H) 07/13/2019 CALCIUM 7.5 (L) 07/13/2019 Assessment/Plan: Oscar Camacho a 33-y.o.malewith s/p kidney tranplant for PCKD , Hx of IVC stenosis,s/p right leg shuntogram with angioplasty of right iliac vein. He was s/p POD 1 Left arm shuntogram possible angioplasty/stenting on . Procedure uneventful. He has some tingling sensation over the finger tips of the left side. Doppler and USG was done by attending . Both are unremarkable. He was admitted for further management with observation, anticoagulation heparin gtt ( DVT protocol), pain control and follow-up -Duplex for left hand, WBI today (orders in) -Continue anticoagulation -follow up nephrology resc -Analgesia as needed -Continue home meds -Pulm care: IS, deep breathing, coughing -OOB ambulating Author: Arline Mccarthy MD Associated attestation - Patti Randolph MD - 07/14/2019 10:25 PM [facility] Supervising MD Documentation Date of Service: 07/13/19 B# [id number] I saw and evaluated the patient. Discussed with resident and agree with the resident's findings andplan as documented in the resident's note. Patti Randolph MD Supervising PhysicianPatti Randolph MD - 07/12/2019 11:16 PM [facility] Documentation Date of Service: 07/12/19 B# [id number] I evaluated the patient due to complaint of pain in the fingers as well as numbness and tingling. He is a status post left upper extremity shuntogram with balloon angioplasty of the mid shunt and venous anastomosis. We did not do any interventions on the arterial anastomosis or brachial artery. On my evaluation the left hand is pink warm and well-perfused with excellent cap refill. They are triphasic Doppler signal to radial artery and ulnar artery. Patient complains of decreased sensation in the fingers, however his motor function is normal in the left upper extremity with normal nurse advisor. I haveevaluated the left upper extremity with duplex ultrasound at the bedside, the left brachial artery is widely patent proximal, arterial anastomosis as well as distal to the arterial anastomosis with normal color flow. There is a palpable thrill in the graft. I am not sure about the etiology of the symptoms , however his left hand and left upper extremity appears to be well perfused without any acute limb ischemia or arterial insufficiency. I recommended observation, anticoagulation pain control andfollow-up. All questions were answered. Patient seems to understand. He agrees with the plan. Discussed with the patient's friends as well. Patti Randolph MD documented in this encounter Plan of Treatment Date Type Specialty Care Team Description 07/18/2019 Office Visit Vascular Surgery Patti Randolph MD [address] [id number] [phone] 08/07/2019 Office Visit Gastroenterology Mert Watson MD [address] [place] [address] [phone] Name Type Priority Associated Diagnoses Date/Time VL BODY MEASURE JUDY Imaging Routine 07/13/2019 11:36 AM EST MULTIPLE VL UPPER EXTREMITY Imaging Routine 07/13/2019 11:36 AM EST DUPLEX AVFISTULA LEFT VL UPPER EXTREMITY Imaging Routine 07/13/2019 11:36 AM EST DUPLEX ARTERIES LEFT Name Type Priority Associated Diagnoses Order Schedule REFER TO ANTICOAGULATION Referral Routine AV graft stenosis, Ordered: 07/13 SERVICES sequela AV graft thrombosis, subsequent encounter Stenosis of inferior vena cava Health Maintenance Due Date Last Done Comments MEDICARE ANNUAL WELLNESS VISIT 1985 MENINGOCOCCAL VACCINE IMM (1 - 1987 Risk 2-dose series) PNEUMOCOCCAL 0-64 YRS (1 of 3 - 1991 PCV13) DEPRESSION SCREENING 1997 INFLUENZA VACCINE (#1) 2019 07/26/2018 HPV IMMUNIZATION SERIES Aged Out No longer eligible based on patient's age to complete this topic documented as of this encounter Implants Implanted Type Area Header Setup Operator Device Shelf Model / Identifier Expiration Serial / Lot Date [place] Graft Regular Wall 6x40 - [id number] Left: Arm [employer] [id number] / Implanted: Qty: 1 on 03/10/2012 at [facility] / [id number] Propaten Graft Right: [employer] [id number] / Implanted: Qty: 1 on 12/13/2012 at [facility] / [id number] Description:[id number] Artegraft Collagen Vascular Graft Right: Leg 02/26/2018 [id number] / Implanted: Qty: 1 on 08/26/2015 by Patti Randolph MD at [facility] / [id number] Description:[id number] documented as of this encounter Procedures Procedure Name Priority Date/Time Associated Comments Diagnosis PARTIAL STAT 07/13/2019 11:25 Results for this THROMBOPLASTIN TIME AM EST procedure are in the results section. BASIC METABOLIC PANEL STAT 07/13/2019 3:54 Results for this AM EST procedure are in the results section. PROTHROMBIN TIME Routine 07/13/2019 3:54 Results for this AM EST procedure are in the results section. CBC NO DIFFERENTIAL STAT 07/13/2019 3:54 Results for this AM EST procedure are in the results section. PARTIAL STAT 07/13/2019 3:54 Results for this THROMBOPLASTIN TIME AM EST procedure are in the results section. RAINBOW LAB HOLD STAT 07/12/2019 8:31 Results for this TUBES PM EST procedure are in the results section. RAINBOW DRAW LIGHT STAT 07/12/2019 8:31 BLUE TOP PM EST COMPREHENSIVE STAT 07/12/2019 8:31 Results for this METABOLIC PANEL PM EST procedure are in the results section. CBC NO DIFFERENTIAL STAT 07/12/2019 8:31 Results for this PM EST procedure are in the results section. PROTHROMBIN TIME STAT 07/12/2019 7:00 Results for this PM EST procedure are in the results section. PARTIAL STAT 07/12/2019 7:00 Results for this THROMBOPLASTIN TIME PM EST procedure are in the results section. SP PERIPHERAL Routine 07/12/2019 3:54 Results for this ANGIOPLASTY PM EST procedure are in the results section. SP ARTERIOVENOUS Routine 07/12/2019 3:52 Results for this FISTULAGRAM PM EST procedure are in the results section. FISTULOGRAM AV ROOM Planned Trip to 07/12/2019 1:59 AV graft 14 OR PM EST stenosis, sequela INR (POCT) STAT 07/12/2019 1:43 Results for this PM EST procedure are in the results section. SIGN PERMIT 07/12/2019 12:00 PM EST documented in this encounter Results PARTIAL THROMBOPLASTIN TIME (07/13/2019 11:25 AM EST) PTT 176.7 (HH)Comment: 21.3 - 35.9 SEC [employer] Reference range [facility] updated 06/20/2019. Specimen Blood - Blood specimen (specimen) Performing Organization Address [facility] Phone Number [facility] [address] [facility] [place] [address] PARTIAL THROMBOPLASTIN TIME (07/13/2019 3:54 AM EST) PTT 46.1 (H)Comment: 21.3 - 35.9 SEC [employer] Reference range [facility] updated 06/20/2019. Specimen Blood - Blood specimen (specimen) Performing Organization Address [facility]ode Phone Number [facility] [address] [address] PROTHROMBIN TIME (07/13/2019 3:54 AM EST) INR 1.16 (H)Comment: INR 0.88 - 1.13 [facility] Therapeutic Range: Ratio [facility] 2.0 - 3.5 Protime 14.6 (H)Comment: 12.0 - 14.5 sec [facility] Reference range [facility] updated 06/20/2019. Specimen Blood - Blood specimen (specimen) Performing Organization Address [place]/[facility] Phone Number [facility] [address] [address] BASIC METABOLIC PANEL (07/13/2019 3:54 AM EST) Glucose 139 (H) 70 - 99 mg/dl [facility] BUN 40 (H) 9 - 20 mg/dl [facility] Creatinine 10.1 (H) 0.8 - 1.5 mg/dl [facility] Sodium 140 134 - 145 mmol/L [facility] Potassium 5.1 3.5 - 5.1 mmol/L [facility] Chloride 97 (L) 98 - 107 mmol/L [facility] CO2 26 22 - 30 mmol/L [facility] Calcium 7.5 (L) 8.3 - 10.1 mg/dl [facility] eGFR 6 See Interpretation [facility] Comment: Below ml/min/1.73ml GROUP Estimated GFR Interpretation: Sq LABORATORY Above 60ml/min/1.73m2 = Normal Renal Function 30-59 ml/min/1.73m2 = Stage 3 Chronic Kidney Disease 15-29 ml/min/1.73m2 = Stage 4 Chronic Kidney Disease Less than 15 ml/min/1.73m2 = Stage 5 Chronic Kidney Disease The GFR value is calculated using the Modification of Diet in Renal Disease ( MDRD) Study Equation which can be found at: https://www.kidney.org/content/adzm-zflqc-uovkxwcm BUN/Creatinine 4 (L) 6 - 22 RATIO [facility] Ratio [facility] Anion Gap 17 (H) 3 - 11 mmol/L [facility] Specimen Blood - Blood specimen (specimen) Performing Organization Address [place]/[facility] Phone Number [employer] [facility] [address] [place] [address] CBC NO DIFFERENTIAL (07/13/2019 3:54 AM EST) WBC Count 5.52Comment: 4.23 - 9.07 [facility] Methodology was K/uL [facility] changed 09/01/2018. Please note updated reference range and units. RBC Count 3.03 (L) 4.30 - 5.89 [facility] M/UL [facility] Hemoglobin 9.8 (L) 13.7 - 17.5 [facility] g/dL [facility] Hematocrit 31.1 (L) 40.1 - 51.0 % [facility] MCV 102.6 (H) 79.0 - 92.2 [facility] FL [facility] MCH 32.3 (H) 25.7 - 32.2 [facility] PG [facility] MCHC 31.5 (L) 32.3 - 36.5 [facility] g/dL [facility] Platelet Count 247 163 - 337 [facility] K/uL [facility] MPV 10.5 9.4 - 12.4 FL [facility] RDW 17.8 (H) 11.6 - 14.4 % [facility] Specimen Blood - Blood specimen (specimen) Performing Organization Address [facility] Phone Number [employer] [facility] [address] [place] [address] RAINBOW DRAW LIGHT BLUE TOP (07/12/2019 8:31 PM EST) Specimen Blood - Blood specimen (specimen) Performing Organization Address [facility] Phone Number [employer] [facility] [address] [place] [address] [phone] CBC NO DIFFERENTIAL (07/12/2019 8:31 PM EST) WBC Count 5.65Comment: 4.23 - 9.07 [facility] Methodology was K/uL [facility] changed 09/01/2018. Please note updated reference range and units. RBC Count 3.08 (L) 4.30 - 5.89 [facility] M/UL [facility] Hemoglobin 10.0 (L) 13.7 - 17.5 [facility] g/dL [facility] Hematocrit 31.5 (L) 40.1 - 51.0 % [facility] MCV 102.3 (H) 79.0 - 92.2 [facility] FL [facility] MCH 32.5 (H) 25.7 - 32.2 [facility] PG [facility] MCHC 31.7 (L) 32.3 - 36.5 [facility] g/dL [facility] Platelet Count 246 163 - 337 [facility] K/uL [facility] MPV 10.3 9.4 - 12.4 FL [facility] RDW 17.8 (H) 11.6 - 14.4 % [facility] Specimen Blood - Blood specimen (specimen) Performing Organization Address City/State/Zipcode Phone Number [facility] [address] [facility] [place] [address] COMPREHENSIVE METABOLIC PANEL (07/12/2019 8:31 PM EST) Sodium 140 134 - 145 mmol/L [facility] Potassium 4.4 3.5 - 5.1 mmol/L [facility] Chloride 96 (L) 98 - 107 mmol/L [facility] CO2 25 22 - 30 mmol/L [facility] Calcium 7.8 (L) 8.3 - 10.1 mg/dl [facility] Albumin 4.8 3.5 - 5.0 g/dl [facility] BUN 34 (H) 9 - 20 mg/dl [facility] Creatinine 9.9 (H) 0.8 - 1.5 mg/dl [facility] Glucose 239 (H) 70 - 99 mg/dl [facility] Total Protein 9.0 (H) 6.3 - 8.2 g/dl [facility] Total Bilirubin 0.5 0.0 - 1.1 MG/DL [facility] AST 27 17 - 59 U/L [facility] ALT 25 21 - 72 U/L [facility] Alkaline 77 40 - 150 U/L [facility] Phosphatase [facility] eGFR 6 See Interpretation [facility] Comment: Below ml/min/1.73ml GROUP Estimated GFR Interpretation: Sq LABORATORY Above 60ml/min/1.73m2 = Normal Renal Function 30-59 ml/min/1.73m2 = Stage 3 Chronic Kidney Disease 15-29 ml/min/1.73m2 = Stage 4 Chronic Kidney Disease Less than 15 ml/min/1.73m2 = Stage 5 Chronic Kidney Disease The GFR value is calculated using the Modification of Diet in Renal Disease ( MDRD) Study Equation which can be found at: https://www.kidney.org/content/opav-eiysu-secrgbin BUN/Creatinine 3 (L) 6 - 22 RATIO [facility] Ratio [facility] Anion Gap 19 (H) 3 - 11 mmol/L [facility] A/G Ratio 1.1 0.8 - 2.0 ratio [facility] Specimen Blood - Blood specimen (specimen) Performing Organization Address [facility] Phone Number [facility] [address] [address] PARTIAL THROMBOPLASTIN TIME (07/12/2019 7:00 PM EST) PTT 40.2 (H)Comment: 21.3 - 35.9 SEC [facility] Reference range [facility] updated 06/20/2019. Specimen Blood - Blood specimen (specimen) Performing Organization Address [facility] Phone Number [facility] [address] [address] [phone] PROTHROMBIN TIME (07/12/2019 7:00 PM EST) INR 1.25 (H)Comment: INR 0.88 - 1.13 [facility] Therapeutic Range: Ratio [facility] LAB[facility]ORY 2.0 - 3.5 Protime 15.4 (H)Comment: 12.0 - 14.5 sec [facility] Reference range [facility] updated 06/20/2019. Specimen Blood - Blood specimen (specimen) Performing Organization Address [facility] Phone Number [facility] [address] [address] SP PERIPHERAL ANGIOPLASTY (07/12/2019 3:54 PM EST) Specimen Impressions Performed At Please see OpNote. Urgency: Routine. This is a routine medical imaging report. Recommendation: No specific imaging recommendation. Signed by Default Provider on 07/14/2019 8:46 AM Narrative Performed At Procedure(s): SP ARTERIOVENOUS FISTULAGRAM, SP PERIPHERAL ANGIOPLASTY Date of service: 07/12/2019 2:35 PM Provided clinical information: 33 years, Male, "left arm shuntogram" Procedure and materials: Standard protocol. Comparison studies: None. Observations: Imaging was provided for a case that was performed in OR 14. Procedure Note Interface, Rad Results - 07/14/2019 8:48 AM EST Procedure(s): SP ARTERIOVENOUS FISTULAGRAM, SP PERIPHERAL ANGIOPLASTY Date of service: 07/12/2019 2:35 PM Provided clinical information: 33 years, Male, "left arm shuntogram" Procedure and materials: Standard protocol. Comparison studies: None. Observations: Imaging was provided for a case that was performed in OR 14. IMPRESSION Please see OpNote. Urgency: Routine. This is a routine medical imaging report. Recommendation: No specific imaging recommendation. Signed by Default Provider on 07/14/2019 8:46 AM SP ARTERIOVENOUS FISTULAGRAM (07/12/2019 3:52 PM EST) Specimen Impressions Performed At Please see OpNote. Urgency: Routine. This is a routine medical imaging report. Recommendation: No specific imaging recommendation. Signed by Default Provider on 07/14/2019 8:46 AM Narrative Performed At Procedure(s): SP ARTERIOVENOUS FISTULAGRAM, SP PERIPHERAL ANGIOPLASTY Date of service: 07/12/2019 2:35 PM Provided clinical information: 33 years, Male, "left arm shuntogram" Procedure and materials: Standard protocol. Comparison studies: None. Observations: Imaging was provided for a case that was performed in OR 14. Procedure Note Interface, Rad Results - 07/14/2019 8:48 AM EST Procedure(s): SP ARTERIOVENOUS FISTULAGRAM, SP PERIPHERAL ANGIOPLASTY Date of service: 07/12/2019 2:35 PM Provided clinical information: 33 years, Male, "left arm shuntogram" Procedure and materials: Standard protocol. Comparison studies: None. Observations: Imaging was provided for a case that was performed in OR 14. IMPRESSION Please see OpNote. Urgency: Routine. This is a routine medical imaging report. Recommendation: No specific imaging recommendation. Signed by Default Provider on 07/14/2019 8:46 AM INR (POCT) (07/12/2019 1:43 PM EST) INR (RALS) 1.2 POINT OF CARE Comment: TESTING Performed at: [facility] POCT Aaron Cordova MD, Laboratory Power [employer] Operator [address] [address] Specimen Blood - Blood specimen (specimen) Performing Organization Address City/State/Zipcode Phone Number POINT OF CARE TESTING documented in this encounter Visit Diagnoses Diagnosis AV graft stenosis, sequela - Primary AV graft thrombosis, subsequent encounter Stenosis of inferior vena cava Compression of vein documented in this encounter Administered Medications Medication Order MAR Action Action Date Dose Rate Site acetaminophen (TYLENOL) tablet Given 07/12/2019 7:15 PM EST 650 mg 650 mg 650 mg, Oral, Q6 HRS, First dose on Wed07/12/19 at 1830, Until Discontinued calcitriol (ROCALTROL) capsule 2 mcg Given 07/13/2019 8:32 AM EST 2 mcg 2 mcg, Oral, DAILY, First dose on Wed07/12/19 at 1750, Until Discontinued Given 07/12/2019 9:12 PM EST 2 mcg calcium carbonate (CALTRATE) tablet 600 mg Given 07/13/2019 8:32 AM EST 600 mg 600 mg (rounded from 640 mg), Oral, TID, First dose on Wed07/12/19 at 2100, Until Discontinued Given 07/12/2019 9:48 PM EST 600 mg FentaNYL (PF) (SUBLIMAZE) injection (PF) 50 Given 07/13/2019 4:10 AM EST 50 mcg mcg 50 mcg, Intravenous Push, PRU Q5MIN PRN, Starting Wed07/12/19 at 1629, Until Lachelle 07/13/19 at 1414, Moderate Pain (pain scale 4-6) - IV - 1st line - if immediate effect required or patient cannot tolerate PO, Severe Pain (pain scale 7-10) - IV - 1st line - if immediate effect required or patient cannot tolerate PO, 4 Recovery Given 07/12/2019 6:27 PM EST 50 mcg Given 07/12/2019 5:56 PM EST 50 mcg gabapentin (NEURONTIN) capsule 100 mg Given 07/13/2019 8:32 AM EST 100 mg 100 mg, Oral, TID, First dose on Wed07/12/19 at 2100, Until Discontinued Given 07/12/2019 11:23 PM EST 100 mg heparin in dextrose 5% IV New Bag 07/13/2019 1:00 PM EST 1,200 Units/hr 12 mL/hr premix 100 units/mL 1,100 Units/hr (11 mL/hr), Intravenous, at 11 mL/hr, TITRATE, Starting Wed07/12/19 at 1830, Until Wed07/14/19 at 0314, Heparin bolus and drip per DVT/PE protocol, DVT/PE Weight Based Heparin Dosing , Pt Name: Oscar Peacock , Rm: PACU 3 , Sex: Male , Height: 62.0 Inches ; Boody Body Weight: 54.6 Kilograms , Weight: 71.0 Kilograms ; Dosing Weight: 62.80 Kilograms , Heparin Bolus: 5000 Units , Maintenance: 1,100 Units/Hr (11 mls/HR) , , HEPARIN ADJUSTMENTS , Note: The Infusion rates expressed in (mls/HR) are based on a standardized Heparin IV , Solution containing 25,000 Units of Heparin in 250 ML (100 Units/ML). , , PTT: Bolus Dose: Infusion Adjustment , < 50: 3800 Units: Increase by 300 Units/hr (3 mL/hr), 51 - 64 2500 Units: Increase by 200 Units/hr (2 mL/hr), 65 - 79 1300 Units: Increase by 100 Units/hr (1 mL/hr), 80 - 120 0 Units: No Change - Therapeutic Range , 121 - 134 0 Units: Decrease by 100 Units/hr (1 mL/hr), 135 - 164 0 Units: Hold 30 minutes then Decrease by 100 Units/hr (1 mL/hr), 165 - 199 0 Units: Hold 60 minutes then Decrease by 200 Units/hr (2 mL/hr), >200 0 Units: Hold 90 minutes then Decrease by 300 Units/hr (3 mL/hr), Prepared by: Nahid Jones 07/12/19 5:31 PM, , New Bag 07/13/2019 5:07 AM EST 1,400 Units/hr 14 mL/hr New Bag 07/12/2019 8:57 PM EST 1,100 Units/hr 11 mL/hr heparin injection [id number] UNIT/ML Given 07/13/2019 5:52 AM EST 3,800 Units 1,300-3,800 Units, Intravenous Push, Q6 HRS PRN, Starting Wed07/12/19 at 1733, Until Wed07/14/19 at 0314, Bolus dose to be given as directed in the heparin protocol order, DVT/PE Weight Based Heparin Dosing Pt Name: Oscar Peacock Rm: PACU 3 Sex: Male Height: 62.0 Inches ; Boody Body Weight: 54.6 Kilograms Weight: 71.0 Kilograms ; Dosing Weight: 62.80 Kilograms Heparin Bolus: 5000 Units Maintenance: 1,100 Units/Hr (11 mls/HR) HEPARIN ADJUSTMENTS Note: The Infusion rates expressed in (mls/HR) are based on a standardized Heparin IV Solution containing 25,000 Units of Heparin in 250 ML (100 Units/ML). PTT: Bolus Dose: Infusion Adjustment < 50: 3800 Units: Increase by 300 Units/hr (3 mL/hr) 51 - 64 2500 Units: Increase by 200 Units/hr (2 mL/hr) 65 - 79 1300 Units: Increase by 100 Units/hr (1 mL/hr) 80 - 120 0 Units: No Change - Therapeutic Range 121 - 134 0 Units: Decrease by 100 Units/hr (1 mL/hr) 135 - 164 0 Units: Hold 30 minutes then Decrease by 100 Units/hr (1 mL/hr) 165 - 199 0 Units: Hold 60 minutes then Decrease by 200 Units/hr (2 mL/hr) >200 0 Units: Hold 90 minutes then Decrease by 300 Units/hr (3 mL/hr) Prepared by: Nahid Jones 07/12/19 5:31 PM, HYDROmorphone (DILAUDID) syringe 0.5 mg Given 07/12/2019 9:11 PM EST 0.5 mg 0.5 mg, Intravenous Push, PRU Q5MIN PRN, 2 doses, Starting Wed07/12/19 at 1629, Until Wed07/12/19 at 2111, Moderate Pain (pain scale 4-6)IV 2nd line- if immediate effect required or cannot tolerate PO & still had moderate pain 2 hrs after admin of 1st line agent or did not tolerate 1st line agent, Severe Pain (pain scale 7-10)IV 2nd line - if immediate effect required or cannot tolerate PO & no still has severe pain 1 hr after admin of 1st line agent or did not tolerate 1st line agent, 4 Recovery Given 07/12/2019 5:03 PM EST 0.5 mg morphine (PF) syringe 2 mg Given 07/13/2019 11:37 AM EST 2 mg 2 mg, Intravenous Push, Q2 HRS PRN, Starting Lachelle 07/13/19 at 0855, Until Wed07/14/19 at 0314, Severe Pain (pain scale 7-10)IV 2nd line - if immediate effect required or cannot tolerate PO & no still has severe pain 1 hr after admin of 1st line agent or did not tolerate 1st line agent Given 07/13/2019 9:22 AM EST 2 mg normal saline bolus 100 mL 100 mL, Injection, Q30 MIN PRN, Starting Wed07/13/19 at 1001, Until Wed at 0314, Flush HD system every 30 minutes for duration of treatment session, Flush HD system with 100 mL normal saline (connected to the dialysis system) every 30 minutes for duration of treatment session. Administration will be documented in the flow sheet. Total amount administered will be entered in the eMAR at the end of the treatment session, OXYcodone (OXY-IR,OXY-FAST) immediate release Given 07/13/2019 6:33 PM EST 10 mg tablet 10 mg 10 mg, Oral, Q4 HRS PRN, Starting Wed07/13/19 at 0855, Until Wed07/14/19 at 0314, Severe Pain (pain scale 7-10) - PO - 1st line - if immediate effect not required and patient can tolerate PO Given 07/13/2019 11:37 AM EST 10 mg OXYcodone (OXY-IR,OXY-FAST) immediate release Given 07/12/2019 11:23 PM EST 5 mg tablet 5 mg 5 mg, Oral, Q4 HRS PRN, Starting Wed07/12/19 at 1728, Until Wed07/14/19 at 0314, Moderate Pain (pain scale 4-6) - PO - 1st line - if immediate effect not required and patient can tolerate PO Given 07/12/2019 7:15 PM EST 5 mg warfarin (COUMADIN) tablet 2 mg Given 07/12/2019 9:48 PM EST 2 mg 2 mg, Oral, PM X1 1700, 1 dose, Wed07/12/19 at 1910 warfarin patient Acknowledged HOLD order 07/13/2019 2:00 PM EST 0 Does not apply, DAILY 1400, First dose on Wed07/13/19 at 1400, Until Discontinued, This order indicates that the patient is on warfarin therapy. The patient should have an order for Warfarin x 1 or a "Warfarin HOLD" x 1 order scheduled for 1700 today. If one is not present, please call the provider to obtain an order. The nurse should enter "no dose required" for this order once a warfarin order is present. Provide Patient/Family with education including the importance of follow up monitoring, compliance, drug-food interactions, potential for adverse drug reactions and interactions (give patient copy of [employer] CareNotes for Warfarin) and document that education was provided. Provide patient with/place order for Medical Alert bracelet if needed. , documented in this encounter Insurance Payer Benefit Plan / Subscriber ID Effective Dates Phone Address Type Group MEDICARE MEDICARE PART A xxxxxxxxxxx 1986-Present Medicare & B MEDICAID [facility] xxxxxxxx 2016-Present Medicaid [place] MEDICAID documented as of this encounter Advance Directives Code Status Date Activated Date Inactivated Comments Full Code 05/25/2019 3:43 AM 06/30/2019 7:30 AM Does the patient have decision making capacity? Yes Order was discussed with: Patient I discussed all options and patient/surrogate requested and agreed to: Full Code
--- OUTSIDE RECORDS SUMMARY | 2019-07-20 19:22 | XMS REPORT | Summary of Care ---
:1985 Author Organization [facility] Address [address] [address] Care Team Providers Name Role Phone Shania Beyer Primary Care Provider Reason for Visit Auth/Cert Status Reason Specialty Diagnoses / Procedures Referred By Contact Referred To Contact Diagnoses Stenosis of other vascular prosthetic devices, implants and grafts, sequela Procedures HI INTRO CATH DIALYSIS CIRCUIT DX ANGRPH FLUOR S&I HI INTRO CATH DIALYSIS CIRCUIT W/TRLUML BALO ANGIOP HI INTRO CATH DIALYSIS CIRCUIT W/TCAT PLMT IV STENT Encounter Details Date Type Department Care Team Description 06/30/2019 Hospital Encounter [facility] Zakiya Ernandez Short Procedure [address] [place] [address] [address] [phone] [address] [address] Allergies Active Allergy Reactions Severity Noted Date Comments Cefazolin Sodium Hives 02/15/2012 Ct Dye Anaphylaxis 02/15/2012 Keflex Hives 02/15/2012 Vancomycin Other 02/15/2012 nadya syndrome Phenol-Wasp Venom Respiratory Reaction High 05/22/2013 Also caused hives, Protein hypertension documented as of this encounter (statuses as of 07/01/2019) Medications Medication Sig Dispensed Refills Start Date End Date Status epoetin efraín 2,500 Inject beneath 0 Active unitsIndications: the skin. Every as directed Wednesday & Wed. Indications: as directed sodium polystyrene Take 15 g by 0 Active (KAYEXALATE) Oral mouth Powder NEEDED. Calcium Carbonate Take 640 mg by 0 Active (CALCIUM-CARB 600 mouth THREE PO) TIMES DAILY WITH MEALS. EPINEPHrine (EPIPEN by Injection 0 Active IJ) route DIRECTED. CALCITRIOL PO Take 2 mcg by 0 Active mouth DAILY. ciprofloxacin Take 1 Tab by 14 Tab 0 10/04/2018 Active (CIPRO) 500 MG Oral mouth DAILY. Tab acetaminophen Take 2 Tabs by 0 03/08/2019 Active (TYLENOL) 325 MG mouth EVERY SIX Oral Tab HOURS NEEDED (Pain). gabapentin Take 100 mg by 0 Active (NEURONTIN) 100 MG mouth THREE Oral Cap TIMES DAILY. predniSONE Take 1 Tab by 3 Tab 0 06/23/2019 Discontinued (DELTASONE) 50 MG mouth DAILY. 9 Oral Take one tablet TabIndications: 13 hours, 7 Allergy to IVP dye, hours and 1 sequela hour prior to the procedure documented as of this encounter (statuses as of 07/01/2019) Active Problems Problem Noted Date AV graft stenosis, sequela 06/23/2019 Overview: Added automatically from request for surgery [id number] Sepsis due to cellulitis 05/29/2019 Iliac vein stenosis, left 03/31/2019 Stenosis of inferior vena cava 03/27/2019 Overview: Added automatically from request for surgery [id number] AV shunt thrombosis, subsequent encounter 09/27/2018 Overview: Added automatically from request for surgery [id number] AV shunt stenosis, subsequent encounter 09/06/2018 Overview: Added automatically from request for surgery [id number] Mechanical complication of arteriovenous surgical shunt 08/02/2018 Overview: Added automatically from request for surgery [id number] Cellulitis 05/24/2018 Overview: Cat scratch disease vs Cellulitis in setting of Fistula proximity No systemic signs of infection, no WBC elevation Patient may have received IV Clindamycin at [facility] without benefit for one day IV Ciprofloxacin and IV Flagyl in ED, Change to IV Unasyn and IV Doxycycline Vascular consulted for fistula assessment and care Infectious disease consulted at this time Blood cultures pending AV graft thrombosis, subsequent encounter 01/17/2018 Overview: Added automatically from request for surgery [id number] Arteriovenous graft stenosis, sequela 12/14/2017 Overview: Added automatically from request for surgery [id number] Stage 4 chronic kidney disease 12/14/2017 Overview: Added automatically from request for surgery [id number] Inferior vena caval stenosis 10/07/2016 End stage renal disease 02/06/2015 Iliac vein stenosis, right 02/06/2015 alf (current) use of anticoagulants 10/30/2013 Overview: Patient [...] as of this encounter (statuses as of 07/01/2019) Resolved Problems Problem Noted Date Resolved Date Subclavian vein stenosis, 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 03/01/2012 Subclavian vein stenosis, 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 03/01/2012 documented as of this encounter (statuses as of 07/01/2019) Immunizations Name Administration Dates Next Due Influenza [...] Sign Reading Time Taken Comments Blood Pressure 115/63 06/30/2019 2:50 PM EDT Pulse 76 06/30/2019 2:50 PM EDT Temperature 36.4 06/30/2019 2:50 PM EDT C (97.6 F) Respiratory Rate 18 06/30/2019 2:50 PM EDT Oxygen Saturation 100% 06/30/2019 2:50 PM EDT Inhaled Oxygen Concentration - - Weight 74.8 kg (165 lb) 06/30/2019 9:54 AM EDT Height 157.5 cm (5' 2") 06/30/2019 9:54 AM EDT Body Mass Index 30.18 06/30/2019 9:54 AM EDT documented in this encounter Discharge Summaries Zakiya Ernandez MD - 06/30/2019 1:27 PM EDTGUTHRIE SP/OP DISCHARGE NOTE [address] [place] [address] [id number] PATIENT: Oscar Peacock SURGEON: Primary: Zakiya Ernandez MD : 1985 DATE OF SURGERY: 06/30/2019 Procedure:right leg shuntogram and venogram with balloon angioplasty Principle Diagnosis: right leg graft, right iliac and IVC stenosis Associated Condition(s): Same as pre-op, unless otherwise indicated Mental Status: Same as pre-op, unless otherwise indicated. Condition: Stable, unless otherwise indicated Disposition of Care: Discharge to home. Appointment with/ or Follow-up with Dr Ernandez in 1 week. Author: Zakiya Ernandez MD 06/30/2019 documented in this encounter Discharge Instructions Enrique Pro RN - 06/30/2019Provider's Instructions Reason for Admission or Diagnosis:AV graft stenosis, sequela Activity/Restrictions: activity as tolerated and no driving for today Skin/Wound Care: Keep wound clean and dry Discharge Diet: Resume preop diet Special Instructions: follow up in one week. Discharge Provider: Zakiya Ernandez MD Attending: Zakiya Ernandez, * Time: 13:30 Nurse's Instructions General Anesthesia For the next 24 hours: Limit yourself to moderate activity when you go home. It is not necessary for you to go to bed, but it is important to rest for 24 hours following surgery. No drinking alcohol, driving, or operating any machinery. Do not sign any legal documents or make any critical decisions. Do not do anything that requires balance, judgement or coordination. Nutrition: Your should eat light foods after surgery, avoiding spicy, hot or gaseous foods such as pizza, chili, beans, etc. If you do become nauseated, fluids high in sugar content such as soda, rodolfo-aid and nonacid juices are recommended. You must have a responsible adult stay with you for 12 hours after receiving general anesthesia. Problems to report to your Physician: Excessive pain or discomfort Fever > 100.5 degrees Difficulty breathing Increase or smell in wound drainage documented in this encounter Plan of Treatment Date Type Specialty Care Team Description 07/07/2019 Office Visit Vascular Surgery Angelina Van FNP [address] [address] [phone] 08/07/2019 Office Visit Gastroenterology Mert Watson MD [address] [address] [phone] Name Type Priority Associated Diagnoses Date/Time SP ARTERIOVENOUS Imaging Routine 06/30/2019 1:18 PM FISTULAGRAM EDT SP PERIPHERAL ANGIOPLASTY Imaging Routine 06/30/2019 1:19 PM EDT Health Maintenance Due Date Last Done [...] of this encounter Implants Implanted Type Area Glue Clamp Operator Device Shelf Model / Identifier Expiration Serial / Lot Date [place] Graft Regular Wall 6x40 - [id number] Left: Arm [employer] [id number] / Implanted: Qty: 1 on 03/10/2012 at [facility] / [id number] Propaten Graft Right: [employer] [id number] / Implanted: Qty: 1 on 12/13/2012 at [facility] / [id number] Description:[id number] Artegraft Collagen Vascular Graft Right: Leg 02/26/2018 [id number] / Implanted: Qty: 1 on 08/26/2015 by Zakiya Ernandez MD at [facility] / [id number] Description:[id number] documented as of this encounter Results Not on filedocumented in this encounter Visit Diagnoses Diagnosis AV graft stenosis, sequela documented in this encounter Administered Medications Medication Order MAR Action Action Date Dose Rate Site albuterol-ipratropium (DUO-NEB) nebulizer unit dose (RT ADMIN) 0.5-2.5 (3) MG/ 3ML 3 mg, Inhalation-SVN, PRN, 4 doses, Starting Wed06/30/19 at 1339, Until 09/17 at 1832, PER RT FREQUENCY, 4 Recovery, [facility] only: Ordering this RT Admin Medication will automatically order the patient to be placed on the Respiratory Therapy Patient Driven Protocol [id number] RT may increase the frequency of administration to q2h, as needed, if symtoms are not controlled at current ordered frequency. If administer three times consecutively without improvement, call provider., FentaNYL (PF) (SUBLIMAZE) injection (PF) 25 mcg 25 mcg, Intravenous Push, PRU Q5MIN PRN, Starting Wed06/30/19 at 1339, Until Wed06/30/19 at 1738, Mild Pain (pain scale 1-3) - IV - 1st line - if immediate effect required or patient cannot tolerate PO, 4 Recovery FentaNYL (PF) (SUBLIMAZE) injection (PF) 50 Given 06/30/2019 2:46 PM EDT 50 mcg mcg 50 mcg, Intravenous Push, PRU Q5MIN PRN, Starting Wed06/30/19 at 1339, Until Wed06/30/19 at 1832, Moderate Pain (pain scale 4-6) - IV - 1st line - if immediate effect required or patient cannot tolerate PO, Severe Pain (pain scale 7-10) - IV - 1st line - if immediate effect required or patient cannot tolerate PO, 4 Recovery Given 06/30/2019 2:05 PM EDT 50 mcg Given 06/30/2019 1:46 PM EDT 50 mcg haloperidol (HALDOL) injection 0.65 mg 0.65 mg, Intravenous Push, PRU X1 PRN, 1 dose, Starting Wed06/30/19 at 1339, Until Wed06/30/19 at 1832, Nausea/Vomiting - IV - 3rd line - if immediate effect required or patient cannot tolerate PO and no relief 1 hour after administration of 2nd line agent, 4 Recovery HYDROmorphone (DILAUDID) syringe 0.5 mg Given 06/30/2019 2:27 PM EDT 0.5 mg 0.5 mg, Intravenous Push, PRU Q5MIN PRN, 2 doses, Starting Wed06/30/19 at 1339, Until Wed06/30/19 at 1427, Moderate Pain (pain scale 4-6)IV 2nd line- [...] tolerate 1st line agent, 4 Recovery Given 06/30/2019 1:52 PM EDT 0.5 mg HYDROmorphone (DILAUDID) syringe 0.5 mg 0.5 mg, Intravenous Push, PRU Q5MIN PRN, Starting Wed06/30/19 at 1339, Until Wed06/30/19 at 1738, Moderate Pain (pain scale 4-6) - IV - 1st line - if immediate effect required or patient cannot tolerate PO, Mild Pain (pain scale 1-3) IV - 2nd line - if immediate effect required or cannot tolerate PO & still had mild pain 4 hrs after admin of 1st line agent or patient did not tolerate 1st line agent , 4 Recovery meperidine (DEMEROL) syringe 25 mg 25 mg, Intravenous Push, PRU Q5MIN PRN, 2 doses, Starting Wed06/30/19 at 1339, Until Wed06/30/19 at 1832, Shivering/Chills/Rigors, 4 Recovery midazolam (VERSED) injection 0.5 mg 0.5 mg, Intravenous Push, PRU Q5MIN PRN, Starting Wed06/30/19 at 1339, Until Wed06/30/19 at 1738, Anxiety - IV - 1st line - if immediate effect required or patient cannot tolerate PO, 4 Recovery normal saline IV Intravenous, at 150 mL/hr, PRU CONTINUOUS, Starting Wed06/30/19 at 1350, Until Wed06/30/19 at 1832, 4 Recovery, PRU, ondansetron (ZOFRAN) injection 4 mg 4 mg, Intravenous Push, PRU X1 PRN, 1 dose, Starting Wed06/30/19 at 1339, Until Wed06/30/19 at 1832, Nausea/Vomiting - IV - 1st line - If immediate effect required or patient cannot tolerate PO, 4 Recovery prochlorperazine (COMPAZINE) injection 2.5 mg 2.5 mg, Intravenous Push, PRU PRN, 2 doses, Starting Wed06/30/19 at 1339, Until Wed06/30/19 at 1832, Nausea/Vomiting - IV - 2nd line - if immediate effect required or patient cannot tolerate PO and no relief 1 hours after administration of 1st line agent, 4 Recovery documented in this encounter Insurance Payer Benefit Plan / Subscriber ID Effective Dates Phone Address Type Group MEDICARE MEDICARE PART A xxxxxxxxxxx 1986-Present Medicare & B MEDICAID [facility] xxxxxxxx 2016-Present Medicaid [place] MEDICAID documented as of this encounter Advance Directives Code Status Date Activated Date Inactivated Comments Full Code 05/25/2019 3:43 AM 06/30/2019 7:30 AM Does the patient have decision making capacity? Yes Order was discussed with: Patient I discussed all options and patient/surrogate requested and agreed to: Full Code
--- OUTSIDE RECORDS SUMMARY | 2019-07-20 19:23 | XMS REPORT | Summary of Care ---
:1985 Author Organization [facility] Address [address] [address] Care Team Providers Name Role Phone Shania Beyer Primary Care Provider Reason for Referral (Routine) Status Reason Specialty Diagnoses / Procedures Referred By Contact Referred To Contact Dorita Mcmanus DO [address] [id number] Scheduling Instructions Reason for Consult: esrd Patient Background: Oscar Peacock is a 33-y.o. male Principal Problem: Cellulitis No components found for: CREATININE CLEARANCE Reason for Visit Reason Comments Arm Pain Fever Auth/Cert Status Reason Specialty Diagnoses / Procedures Referred By Contact Referred To Contact Encounter Details Date Type Department Care Team Description 05/24/2019 - Hospital Encounter [facility] [address] Barker MD [address] [place] [address] [phone] Inpatient 05/29/2019 1 Roberto Lazaro MD [id number] [id number] Dorita Mcmanus DO [address] [address] [phone] Merced Springer MD [address] [address] [phone] Senthil Allen MD [address] [address] [phone] Allergies Active Allergy Reactions Severity Noted Date Comments Cefazolin Sodium Hives 02/15/2012 Ct Dye Anaphylaxis 02/15/2012 Keflex Hives 02/15/2012 Vancomycin Other 02/15/2012 nadya syndrome Phenol-Wasp Venom Respiratory Reaction High 05/22/2013 Also caused hives, Protein hypertension documented as of this encounter (statuses as of 05/30/2019) Medications Medication Sig Dispensed Refills Start Date [...] MG Oral Cap mouth THREE TIMES DAILY. clindamycin 300 MG Take 1 Cap by 36 Cap 0 05/29/2019 06/07/2019 Active Oral Cap mouth FOUR TIMES DAILY for 9 days. ergocalciferol Take 1 Cap by 4 Cap 0 06/03/2019 Active (DRISDOL, CALCIFEROL, mouth EVERY 7 VITAMIN D) 70310 units DAYS. Oral Cap OXYcodone Take 1 Tab by 15 Tab 0 05/29/2019 06/03/2019 Active (OXY-IR,OXY-FAST) 5 MG mouth EVERY Oral Tab EIGHT HOURS NEEDED (arm pain) for up to 5 days. Max Daily Amount: 15 mg. documented as of this encounter (statuses as of 05/30/2019) Active Problems Problem Noted Date Sepsis due to cellulitis 05/29/2019 Iliac vein stenosis, left 03/31/2019 Stenosis of inferior vena cava 03/27/2019 Overview: Added automatically from request for surgery [id number] AV shunt thrombosis, subsequent encounter 09/27/2018 Overview: Added automatically from request for surgery [id number] AV shunt stenosis, subsequent encounter 09/06/2018 Overview: Added automatically from request for surgery [id number] Mechanical complication of arteriovenous surgical shunt 08/02/2018 Overview: Added automatically from request for surgery [id number] Cellulitis 05/24/2018 Overview: Cat scratch disease vs Cellulitis in setting of Fistula proximity No systemic signs of infection, no WBC elevation Patient may have received IV Clindamycin at [place] without benefit for one day IV Ciprofloxacin and IV Flagyl in ED, Change to IV Unasyn and IV Doxycycline Vascular consulted for fistula assessment and care Infectious disease consulted at this time Blood cultures pending AV graft thrombosis, subsequent encounter 01/17/2018 Overview: Added automatically from request for surgery [id number] Arteriovenous graft stenosis, sequela 12/14/2017 Overview: Added automatically from request for surgery [id number] Stage 4 chronic kidney disease 12/14/2017 Overview: Added automatically from request for surgery [id number] Inferior vena caval stenosis 10/07/2016 End stage renal disease 02/06/2015 Iliac vein stenosis, right 02/06/2015 snf (current) use of anticoagulants 10/30/2013 Overview: Patient [...] as of this encounter (statuses as of 05/30/2019) Resolved Problems Problem Noted Date Resolved Date Subclavian vein stenosis, 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 03/01/2012 Subclavian vein stenosis, 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 03/01/2012 documented as of this encounter (statuses as of 05/30/2019) Immunizations Name Administration Dates Next Due Influenza [...] Sign Reading Time Taken Comments Blood Pressure 118/56 05/29/2019 8:00 AM EDT Pulse 93 05/29/2019 8:00 AM EDT Temperature 36 05/29/2019 8:00 AM EDT C (96.8 F) Respiratory Rate 20 05/29/2019 8:00 AM EDT Oxygen Saturation 98% 05/29/2019 8:00 AM EDT Inhaled Oxygen Concentration - - Weight 74 kg (163 lb 2.3 oz) 05/26/2019 11:30 AM EDT Height 157.5 cm (5' 2") 05/24/2019 7:44 PM EDT Body Mass Index 29.84 05/24/2019 7:44 PM EDT documented in this encounter Discharge Summaries Senthil Allen MD - 05/29/2019 5:03 PM EDT [facility] [address]. [id number] Discharge Summary Patient ID: Oscar Peacock [id number] 33-y.o. 1985 Admission date: 05/24/2019 Discharge date: 05/29/2019 Admitting Physician: Dorita Mcmanus DO Indication for Admission: cellulitis Principal Diagnosis: Sepsis due to cellulitis (HCC) Discharged Condition: good Hospital Course: A 32 years old male with history of ESRD, secondary hyperparathyroidism, peripheralneuropathy was admitted to the hospital with complaints of left arm pain, swelling and redness, fever. He was found to have cellulitis of left upper extremity. He was started on clindamycin. Nephrology was consulted, who performed hemodialysis. His blood cultures were followed, remained negative.Vascular surgery was consulted because he had left upper extremity swelling, scan of graft was obtained, there was no evidence of infection of the graft, the left upper extremity swelling could be related to previously known left subclavian vein occlusion or possible injury to the recurrent stenosis of the venous anastomosis that was seen in duplex ultrasound. With treatment, patient symptoms significantly improved and he was discharged to home. He will follow-up with nephrology, vascular surgery and with infectious disease after discharge from the hospital. Examination on the day of discharge Constitutional: Not in distress General: Alert and oriented to person, place and time Respiratory: Not Tachypneic, No Use of accessory muscles, Vesicular Breath Sounds, no wheezes or crackles. CVS: S1, S2 heard Extremities: left upper extremity- no erythema or tenderness Consults: CONSULT TO VASCULAR SURGERY CONSULT TO VASCULAR SURGERY CONSULT TO NEPHROLOGY Procedures: Us Abdomen Complete Result Date: 05/09/2019 Procedure: US ABDOMEN COMPLETE Date of service: 05/09/2019 3:26 AM History: 33 years, Male, "RUQ colicky x9 days" Technique: Grayscale and color Doppler ultrasound images of the abdomen with spectral waveforms. Comparison: CT abdomen /pelvis 01/18/18 Findings: The visualized portions of the aorta and inferior vena cava are patent. The liver measures 16 cm longitudinally, which is normal size. The liverhas smooth surface contours and normal echogenicity. The portal vein is patent with normal antegradephasic flow. The intrahepatic bile ducts are normal in caliber. The common bile duct diameter is 3 mm, which is normal. The gallbladder is mildly contracted with 3 mm wall thickness. There are no gallstones or pericholecystic fluid. Sonographic Gonzalez sign is negative. The pancreas is obscured by overlying bowel gas. The spleen is normal in size, measuring 11.1 cm longitudinally. The kidneys are notvisualized. There is no ascites. 1. Contracted gallbladder without stones or evidence of cholecystitis. 2. Normal liver and bile ducts. 3. Nonvisualized kidneys due to severe renal atrophy. Signed by Humphrey Mcgowan on 05/09/2019 4:02AM Vl Upper Extremity Duplex Avfistula Left Result Date: 05/25/2019 NAME: Ayush Moore BN: [id number] VASCULAR LAB ASSONET [facility] STUDY DATE: 05/25/19 1 [address] [id number] : 85 AP : Mee Acuna MD REFERRING PROVIDER: Guru Fair EXAMINATION: Arterial - Upper INDICATION: Complication of AVF/Graft -996.73 TECHNOLOGIST: Iron Keith IMPRESSIONS: Hx:Patient with new left arm edema and pain. Duplex imaging of the left upper arm arteriovenous loop shunt shows multiple areas of plaque along the loop shunt. There appears to be a increasd velocity at the distal anast. Graft Flowvol aprx 700ml/min. Shunt loop: Prx: 73/52 Md: 178/75cms Dst: 100/50cms Dennis Anas: 450/300cms Brachial Art: Dst:41/0cms Patent left upper arm loop shunt with areas of increased velocities and narrowings due to heavy plaque through out the loop shunt. Tech limited due to severe pain and edema. No evidence ofhematoma or pseudoaneurysm No evidence for Deep or superficial thrombus. Xr Forearm 2 Views Left (standard) Result Date: 05/24/2019 Procedure(s): XR FOREARM 2 VIEWS LEFT (STANDARD) Date of service: 05/24/2019 9: 59 PM Provided clinical information: 33 years, Male, "pain, swelling" Procedure and materials: Standard protocol. Comparison studies: 05/23/2018 Observations: Side: 3 views of the left forearm were obtained. Bones: Intact with no displaced fracture or focal osseous destruction. Joints: There is anatomic alignment at the wrist and elbow with normal joint spaces. Soft tissues: There is generalized infiltration of the subcutaneous fat throughout the forearm. Some apparent vascular calcifications are partially visualized in the upper arm. 1. Nonspecific diffuse infiltration of the subcutaneous fat in the forearm. This could be related topassive edema, infection, or trauma. Signed by Lyndon Casanova on 05/24/2019 10:13 PM Complications: None Medications: Current Discharge Medication List START taking these medications Clindamycin HCl 300 MG Caps Dose: 300 mg Quantity: 36 Cap Refills: 0 Take 1 Cap by mouth FOUR TIMES DAILY for 9 days. ergocalciferol 42604 units Caps Commonly known as: DRISDOL, CALCIFEROL, VITAMIN D Dose: 50,000 Units Start taking on: June 03, 2019 Quantity: 4 Cap Refills: 0 Take 1 Cap by mouth EVERY 7 DAYS. OXYcodone 5 MG Tabs Commonly known as: OXY-IR,OXY-FAST Dose: 5 mg Quantity: 15 Tab Refills: 0 Take 1 Tab by mouth EVERY EIGHT HOURS NEEDED (arm pain) for up to 5 days. Max Daily Amount: 15 mg. CONTINUE these medications which have NOT CHANGED * acetaminophen 325 MG Tabs Commonly known as: TYLENOL Dose: 650 mg Refills: 0 Take 2 Tabs by mouth EVERY SIX HOURS NEEDED (Pain). * acetaminophen 325 MG Tabs Commonly known as: TYLENOL Dose: 650 mg Refills: 0 Take 650 mg by mouth EVERY THREE HOURS NEEDED. CALCITRIOL PO Dose: 2 mcg Refills: 0 [...] 0 Take 15 g by mouth NEEDED. * This list has 2 medication(s) that are the same as other medications prescribed for you. Read thedirections carefully, and ask your doctor or other care provider to review them with you. Where to Get Your Medications These medications were sent to [id number] - [place], [place] - [address] [facility] [address] Clindamycin HCl 300 MG Caps ergocalciferol 56590 units Caps OXYcodone 5 MG Tabs Patient Instructions: Goals:Patient to maintain functional ability. Prevent readmission and improve functional health status. Activity/Restrictions: activity as tolerated Skin/Wound Care: Keep wound clean and dry Discharge Diet: Renal Diet Special Instructions: Please take your prescribed medications as instructed. Please follow-up with your primary care provider Shania Beyer within 1 week from discharge from the hospital. Please follow-up with your hl7 developer and Vascular surgery as scheduled after discharge from the hospital. Please follow up with Infectious disease clinic in one week for evaluation of cellulitis. Total duration of time spent: 35 minutes. Provider Signature: Senthil Allen MD documented in this encounter Discharge Instructions InstructionsSenthil Allen MD - 05/29/2019Provider's Instructions Reason for Admission or Diagnosis:Sepsis due to cellulitis (HCC) Goals:Patient to maintain functional ability. Prevent readmission and improve functional health status. Activity/Restrictions: activity as tolerated Skin/Wound Care: Keep wound clean and dry Discharge Diet: Renal Diet Special Instructions: Please take your prescribed medications as instructed. Please follow-up with your primary care provider Shania Beyer within 1 week from discharge from the hospital. Please follow-up with your hl7 developer and Vascular surgery as scheduled after discharge from the hospital. Please follow up with Infectious disease clinic in one week for evaluation of cellulitis. Discharge Provider: Senthil Allen MD Attending: Senthil Allen MD Time: 12:20 {Provider's stop here} Nurse's Instructions Problems to report to your Physician: Excessive pain or discomfort Fever > 100.5 degrees Difficulty breathing Increase or smell in wound drainage Skin/Wound Care: Skin intact on discharge: Dialysis fistula. Medical Equipment/Supplies to help you at home: Help arranged for you Home Health/Receiving Agency: If you have any questions/ concern please call: [facility]ar[facility] [phone] documented in this encounter Progress Notes Merced Springer MD - 05/28/2019 4:30 PM EDT [facility] [address] [id number] Hospitalist Progress Note Date of Service: 05/28/2019 Patient: Oscar Cleary #: [id number] Attending: MERCED SPRINGER MD ,MD Subjective: Visited his room 3 times today and he was asleep snoring. Per nursing, he wakes up, walks the hallways and asks for more pain medication. Blood cx x2 are negative at 72 hours. Per Nephrology, ok to change iv to po clindamycin. Improving left upper extremity pain and swelling. Essentially there is no more tenderness in the left upper arm. Still some swelling left forearm where he has hadepisodes of cellulitis before. Physical: Objective: Blood pressure 118/68, pulse 96, temperature 97.6 F (36.4 C) , temperature source Temporal, resp. rate 20, height 5' 2" (1.575 m), weight 163 lb 2.3 oz (74 kg), SpO2 97 %. General: no distress, oriented times 3 Lungs: clear to auscultation Heart: regular rate and rhythm Abd: negative Ext: abnormal findings: arm edema Neuro: Mental status:awake, alert and oriented and sleepy at times Data: Recent Labs 05/26/19 0755 05/27/19 0509 05/28/19 0554 NA 137 139 139 K 4.3 4.4 3.9 CL 89* 88* 93* CO2 30 28 30 GLUCOSE 122* 98 127* BUN 47* 59* 26* CREATININE 9.3* 11.3* 7.6* EGFR 7 5 8 CALCIUM 7.8* 8.4 8.8 ALBUMIN 4.4 4.7 4.3 Recent Labs 05/28/19 0554 WBC 3.32* HGB 7.7* HCT 24.7* PLAT 186 Magnesium Date Value Ref Range Status 05/28/2019 2.2 1.6 - 2.3 MG/DL Final Plan/Impression: Left upper extremity swelling, no evidence of infection of the graft on the duplex ultrasound, the swelling could be related to the previously known left subclavian vein occlusion or possible related to the recurrent stenosis of the venous anastomosis that was seen on the duplex ultrasound.Vascular Surgical teamrecommended continuing follow-up on the blood cultures. The blood cultures are negative as a final result, so will discuss with the patient angioplasty of the venous anastomosis if a significant stenosis is found versus ligation of the graft. (Per Vascular surgery 05/27/19: Continue antibiotics, we will discuss further as an outpatient possible ligation of the AV graft after the forearm cellulitis resolved.) ESRD Continue dialysis via the right leg graft. ESRD on Home HD. HD tomorrow with 3-4 L UF per Nephrology. Electrolytes:Stable. Monitor potassium, magnesium and phosphorus Anemia of CKD Hb 7.7. Iron studies checked. Low % sat and TIBC and serum iron. s/p IV Infusion 125 mg. EPO next HD. DVT Prophylaxis: heparin GI Prophylaxis: not indicated Nutrition: regular Villareal remains in place for the following reason(s): No villareal present Strategic Partnership Manager: Consulted Smoking cessation counseling was provided for 0 minutes PT/OT: Consulted Disposition: Home tomorrow after dialysis. Author: Merced Springer MD Kayli Willis MD - 05/28/2019 11:20 AM EDT [facility] [address] [id number] Nephrology Progress Note Date of Service: 05/28/2019 Patient: Oscar Cleary #: [id number] Attending: MERCED SPRINGER MD , Subjective: was seen this morning. Patient was very drowsy and in obtunded state yesterday after receiving 5 dose of 2 mg IV Dilaudid in 12 hours. After dialysis he improved significantly. We will try Dilaudid 0.5 mg for severe pain. Recommend to do OxyIR and Tylenol. Pain and swelling continue to improve in left arm. Objective: Blood pressure 121/70, pulse 99, temperature 98.5 F (36.9 C) , temperature source Temporal, resp. rate 20, height 5' 2" (1.575 m), weight 163 lb 2.3 oz (74 kg), SpO2 100 %. I/O: Intake/Output Summary (Last 24 hours) at 05/28/2019 1120 Last data filed at 05/28/2019 1045 Gross per 24 hour Intake 270 ml Output Net 270 ml General: alert, mild distress Lungs: CTA Heart: RRR and S1 S2 Abd: soft, nontender, nondistended Ext: 2+ edema Bilateral Access: AVF good thrill and bruit. Data: WBC Count Date Value Ref Range Status 05/28/2019 3.32 (L) 4.23 - 9.07 K/uL Final Comment: Methodology was changed 09/01/2018. Please note updated reference range and units. Hemoglobin Date Value Ref Range Status 05/28/2019 7.7 (L) 13.7 - 17.5 g/dL Final Hematocrit Date Value Ref Range Status 05/28/2019 24.7 (L) 40.1 - 51.0 % Final Platelet Count Date Value Ref Range Status 05/28/2019 186 163 - 337 K/uL Final Sodium Date Value Ref Range Status 05/28/2019 139 134 - 145 mmol/L Final Potassium Date Value Ref Range Status 05/28/2019 3.9 3.5 - 5.1 mmol/L Final Chloride Date Value Ref Range Status 05/28/2019 93 (L) 98 - 107 mmol/L Final CO2 Date Value Ref Range Status 05/28/2019 30 22 - 30 mmol/L Final Glucose Date Value Ref Range Status 05/28/2019 127 (H) 70 - 99 mg/dl Final Calcium Date Value Ref Range Status 05/28/2019 8.8 8.3 - 10.1 mg/dl Final BUN Date Value Ref Range Status 05/28/2019 26 (H) 9 - 20 mg/dl Final Creatinine Date Value Ref Range Status 05/28/2019 7.6 (H) 0.8 - 1.5 mg/dl Final No results found for: INR Assessment/Plan: Principal Problem: Cellulitis ESRD on HD at home: 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 Dry weight is 64kg. He has 2 fistulas, left arm and right leg. He normally alternates. Now he presents with left arm cellulitis, vascular surgery is involved to check the patency of left arm fistula. initially swelling and tenderness was positive , now improved. Blood Cx negative in 48 hours. On IV clindamycin. According to Vascular surgery, patient might be having steal syndrome and causing left arm swelling.Less likely cellulitis. Will most likely proceed with ligation of graft. Will follow up with them. - Volume status: Euvolemic. - Blood pressure: Stable - Bone and Mineral Metabolism: Calcium 8.4. PTH 50.4 (history of parathyroidectomy )and Vit D low.Continue with calcitriol, Tums. Added vit D 50, 000 U - Anemia of CKD: Hb 7.7. Iron studies checked. Low % sat and TIBC and serum iron. s/p 125 mg of IViron infusion on 05/27/2019. If he was not given. - Electrolytes: Stable. Will monitor potassium, magnesium and phosphorus. - Access: Right lower extremity and left arm fistula. Access from right upper extremity fistula. - Dialysis: MWFS. Next dialysis tomorrow. From nephrology standpoint, patient can be discharged to home with nephrology follow-up in 2-4 weeks. Antibiotics can be switched to oral clindamycin. Patient was seen and discussed with Dr Clinton Author: Kayli Noonan MD Associated attestation - Huseyin Clinton MD - 05/28/2019 12:[facility] Supervising MD Documentation Date of Service: 05/28/2019 B# [id number] I saw and evaluated the patient 05/28/2019. Discussed with resident Dr. Noonan and agree with the resident's findings and plan as documented in the resident's note. please review resident note for complete details. Additional Comments: ESRD on Home HD: HD tomorrow with 3-4 L UF Anemia: s/p IV Iron 125 mg yesterday. EPO next HD. Huseyin Clinton MD Supervising Physician Zakiya Ernandez MD - 05/27/2019 7:28 PM EDT [facility] [address]. [id number] Vascular Surgery Progress Note Date of Service: 05/27/2019 Patient: Oscar Peacock B #: [id number] Attending: MERCED SPRINGER MD ,MD Subjective: Improving left upper extremity pain and swelling. Essentially there is no more pain, ortenderness in the left upper arm. Still some swelling left forearm where he has had episodes of cellulitis before. So far the blood cultures are negative. Physical: Objective: Blood pressure 107/53, pulse 101, temperature 97.4 F (36.3 C) , temperature sourceTemporal, resp. rate 20, height 5' 2" (1.575 m), weight 163 lb 2.3 oz (74 kg), SpO2 98 %. I/O: Date 05/26/19 1500 - 05/27/19 0659 05/27/19 0700 - 05/28/19 0659 Shift 4481-2375 7919-5477 24 Hour Total 6917-0339 2896-5732 0938-2669 24 Hour Total INTAKE P.O. 240 600 Shift Total(mL/kg) 240(3.24) 600(8.11) OUTPUT Urine(mL/kg/hr) 0(0) 0(0) Shift Total(mL/kg) 0(0) 0(0) Weight (kg) 74 74 74 74 74 74 74 General: alert, no distress Lungs: normal Ext: Left upper extremity with swelling and some bruising of the left forearm no swelling or redness in the left upper arm. Left hand appears to be warm and well-perfused, no discoloration or ulceration. A/P : Left upper extremity swelling improving with the upper arm swelling completely resolved, residual left forearm swelling although improving with antibiotics. I suspect there was some degree of cellulitis. No evidence of left upper extremity graft infection. Continue antibiotics, we will discuss further as an outpatient possible ligation of the AV graft after the forearm cellulitis resolved. All questions were answered. Patient seems to understand. He agrees with the plan. Author: Zakiya Ernandez MD Merced Julien MD - 05/27/2019 5:55 PM EDT [facility] [address] [id number] Hospitalist Progress Note Date of Service: 05/27/2019 Patient: Oscar Cleary #: [id number] Attending: MERCED SPRINGER MD ,MD Subjective: Yesterday asking for increasing pain meds. He was on 1 mg and 0.3 mg dilaudid for a total of 1.3 mg but felt he needed more. His heart rate was also elevated to 126 for several hours which could indicate pain, so he did get an increase. Today, while going to dialysis, he became lethargic and so dilaudid was discontinued and changed to oxycodone 5 mg q 6-8. Physical: Objective: Blood pressure 107/53, pulse 101, temperature 97.4 F (36.3 C) , temperature sourceTemporal, resp. rate 20, height 5' 2" (1.575 m), weight 163 lb 2.3 oz (74 kg), SpO2 98 %. General: cooperative, oriented times 3 Lungs: clear to auscultation Heart: regular rate and rhythm, mild tachycardia Abd: negative Ext: abnormal findings: edema of arm slight improvement Neuro: Mental status:sleepy but arousable Data: Recent Labs 05/24/19212405/25/19941 WBC 10.10* 8.62 HGB 7.5* 7.7* HCT 23.3* 24.4* PLAT 187 168 Recent Labs 05/24/19212405/25/1942 05/26/19 0755 05/27/19 0509 NA 135 137 137 139 K 4.6 5.1 4.3 4.4 CL 92* 91* 89* 88* CO2 27 28 30 28 GLUCOSE 102* 84 122* 98 BUN 58* 69* 47* 59* CREATININE 10.6* 11.8* 9.3* 11.3* EGFR 6 5 7 5 CALCIUM 8.1* 7.4* 7.8* 8.4 TP 8.4* 8.5* -- -- ALBUMIN 4.4 4.5 4.4 4.7 ALK 82 89 -- -- AST 31 33 -- -- ALT 30 22 -- -- TBILI 1.2* 1.1 -- -- Plan/Impression: Left upper extremity swelling, no evidence of infection of the graft on the duplex ultrasound, the swelling could be related to the previously known left subclavian vein occlusion or possible related to the recurrent stenosis of the venous anastomosis that was seen on the duplex ultrasound. Vascular Surgical team recommended continuing follow-up on the blood cultures, if the blood cultures are negative as a final result I will discuss with the patient angioplasty of the venous anastomosis if a significant stenosis is found versus ligation of the graft. ESRD Continue dialysis via the right leg graft. Anemia of CKD Hb 7.7. Iron studies checked. Low % sat and TIBC and serum iron. Will do 125 mg of IV iron infusion today along with 14,000 units of EPO during dialysis. Electrolytes:Stable. Monitor potassium, magnesium and phosphorus DVT Prophylaxis: heparin GI Prophylaxis: not indicated Nutrition: regular Villareal remains in place for the following reason(s): No villareal present Strategic Partnership Manager: Consulted Smoking cessation counseling was provided for 0 minutes PT/OT: Not consulted yet Disposition: Home on dialysis Author: Merced Springer MD Huseyin Castro MD - 05/27/2019 3:19 PM EDTI was called by HD nurse as patient is drowsy. He received 5 doses of 2 mg Iv dilaudid in last twelve hours. He is vitally stable. We will proceed with HD hopefully this will help clear some dilaudid I will discontinue Dilaudid. Breathing ok. Naloxone not indicated for now. Huseyin Clinton MD Huseyin perez MD - 05/27/2019 10:05 AM EDT [facility] [place]. [id number] Nephrology Progress Note Date of Service: 05/27/2019 Patient: Oscar Cleary #: [id number] Attending: MERCED SPRINGER MD ,MD Subjective: was seen this morning. Feels better. left arm pain and swelling improving. Objective: Blood pressure 107/53, pulse 101, temperature 97.4 F (36.3 C) , temperature sourceTemporal, resp. rate 20, height 5' 2" (1.575 m), weight 163 lb 2.3 oz (74 kg), SpO2 98 %. I/O: Intake/Output Summary (Last 24 hours) at 05/27/2019 1005 Last data filed at 05/27/2019 0130 Gross per 24 hour Intake 240 ml Output 0 ml Net 240 ml General: alert, mild distress Lungs: CTA Heart: RRR and S1 S2 Abd: soft, nontender, nondistended Ext: 2+ edema Bilateral Access: AVF good thrill and bruit. Data: No results found for: WBC, HGB, HCT, PLAT Sodium Date Value Ref Range Status 05/27/2019 139 134 - 145 mmol/L Final Potassium Date Value Ref Range Status 05/27/2019 4.4 3.5 - 5.1 mmol/L Final Chloride Date Value Ref Range Status 05/27/2019 88 (L) 98 - 107 mmol/L Final CO2 Date Value Ref Range Status 05/27/2019 28 22 - 30 mmol/L Final Glucose Date Value Ref Range Status 05/27/2019 98 70 - 99 mg/dl Final Calcium Date Value Ref Range Status 05/27/2019 8.4 8.3 - 10.1 mg/dl Final BUN Date Value Ref Range Status 05/27/2019 59 (H) 9 - 20 mg/dl Final Creatinine Date Value Ref Range Status 05/27/2019 11.3 (H) 0.8 - 1.5 mg/dl Final No results found for: INR Assessment/Plan: Principal Problem: Cellulitis ESRD on HD at home: 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 Dry weight is 64kg. He has 2 fistulas, left arm and right leg. He normally alternates. Left arm fistula was used almost 2 weeks ago. Now he presents with left arm cellulitis, vascular surgery is involved to check the patency of left arm fistula. initially swelling and tenderness was positive , now improved. Blood Cx negative in 48 hours. On IV clindamycin. According to Vascular surgery, patient might be having steal syndrome and causing left arm swelling.Less likely cellulitis. Will most likely proceed with ligation of graft. Will follow up with them. - Volume status: Hypervolemic with +2 edema till thighs. - Blood pressure: Stable - Bone and Mineral Metabolism: Calcium 8.4. PTH 50.4 (history of parathyroidectomy )and Vit D low.Continue with calcitriol, Tums. Added vit D 50, 000 U - Anemia of CKD: Hb 7.7. Iron studies checked. Low % sat and TIBC and serum iron. Will do 125 mg of IV iron infusion today along with 14,000 units of EPO during dialysis. - Electrolytes: Stable. Will monitor potassium, magnesium and phosphorus. - Access: Right lower extremity and left arm fistula. Access from right upper extremity fistula. - Dialysis: MWFS. dialysis today. Patient was seen and discussed with Dr Clinton Author: Kayli Noonan MD [facility] Supervising Documentation Date of Service: 05/27/2019 B# [id number] I saw and evaluated the patient 05/27/2019. Discussed with resident Dr. Noonan and agree with the resident's findings and plan as documented in the resident's note. please review resident note for complete details. Additional Comments:HD today. Huseyin Clinton MD Supervising Physician Merced Julien MD - 05/26/2019 1:08 PM EDT [facility] [place]. [id number] Hospitalist Progress Note Date of Service: 05/26/2019 Patient: Oscar Peacock B #: [id number] Attending: MERCED SPRINGER MD ,MD Subjective: Feels like he needs more pain medication. Will have dialysis again tomorrow. Physical: Objective: Blood pressure 117/63, pulse (!) 120, temperature 98.8 F (37.1 C), temperature source Temporal, resp. rate 16, height 5' 2" (1.575 m), weight 163 lb 2.3 oz (74 kg), SpO2 98 %. General: alert, mild distress, cooperative, oriented times 3 Lungs: clear to auscultation Heart: tachycardia rate and regular rhythm Abd: Abdomen soft, non-tender. BS normal. No masses, organomegaly or hernia. No bruits. Ext: Left arm swelling otherwise extremities normal. No deformities, edema, or skin discoloration. Station and gait normal. Neuro: Mental status:awake, alert and oriented and gait normal Data: Recent Labs 05/24/19212405/25/19941 WBC 10.10* 8.62 HGB 7.5* 7.7* HCT 23.3* 24.4* PLAT 187 168 Recent Labs 05/24/19212405/25/1942 05/26/19 0755 NA 135 137 137 K 4.6 5.1 4.3 CL 92* 91* 89* CO2 27 28 30 GLUCOSE 102* 84 122* BUN 58* 69* 47* CREATININE 10.6* 11.8* 9.3* EGFR 6 5 7 CALCIUM 8.1* 7.4* 7.8* TP 8.4* 8.5* -- ALBUMIN 4.4 4.5 4.4 ALK 82 89 -- AST 31 33 -- ALT 30 22 -- TBILI 1.2* 1.1 -- Plan/Impression: Left upper extremity swelling, no evidence of infection of the graft on the duplex ultrasound, the swelling could be related to the previously known left subclavian vein occlusion or possible related to the recurrent stenosis of the venous anastomosis that was seen on the duplex ultrasound. Vascular Surgical team recommended continuing follow-up on the blood cultures, if the blood cultures are negative as a final result I will discuss with the patient angioplasty of the venous anastomosis if a significant stenosis is found versus ligation of the graft. ESRD Continue dialysis via the right leg graft. DVT Prophylaxis: heparin GI Prophylaxis: None Nutrition: regular Villareal remains in place for the following reason(s): No villareal present Strategic Partnership Manager: Consulted Smoking cessation counseling was provided for 0 minutes PT/OT: Not consulted yet Disposition: Home Author: Merced Springer MD Kayli Willis MD - 05/26/2019 10:13 AM EDT [facility] [place]. [id number] Nephrology Progress Note Date of Service: 05/26/2019 Patient: Oscar Cleary #: [id number] Attending: MERCED SPRINGER MD ,MD Subjective: was seen this morning. Feeling okay. Still c/o left arm pain and swelling. Objective: Blood pressure 117/63, pulse (!) 120, temperature 98.8 F (37.1 C), temperature source Temporal, resp. rate 16, height 5' 2" (1.575 m), weight 141 lb 1.5 oz (64 kg), SpO2 98 %. I/O: Intake/Output Summary (Last 24 hours) at 05/26/2019 1014 Last data filed at 05/26/2019 0930 Gross per 24 hour Intake 360 ml Output Net 360 ml General: alert, mild distress Lungs: CTA Heart: RRR and S1 S2 Abd: soft, nontender, nondistended Ext: 2+ edema Bilateral Access: AVF good thrill and bruit. Data: WBC Count Date Value Ref Range Status 05/25/2019 8.62 4.23 - 9.07 K/uL Final Hemoglobin Date Value Ref Range Status 05/25/2019 7.7 (L) 13.7 - 17.5 g/dL Final Hematocrit Date Value Ref Range Status 05/25/2019 24.4 (L) 40.1 - 51.0 % Final Platelet Count Date Value Ref Range Status 05/25/2019 168 163 - 337 K/uL Final Sodium Date Value Ref Range Status 05/26/2019 137 134 - 145 mmol/L Final Potassium Date Value Ref Range Status 05/26/2019 4.3 3.5 - 5.1 mmol/L Final Chloride Date Value Ref Range Status 05/26/2019 89 (L) 98 - 107 mmol/L Final CO2 Date Value Ref Range Status 05/26/2019 30 22 - 30 mmol/L Final Glucose Date Value Ref Range Status 05/26/2019 122 (H) 70 - 99 mg/dl Final Calcium Date Value Ref Range Status 05/26/2019 7.8 (L) 8.3 - 10.1 mg/dl Final BUN Date Value Ref Range Status 05/26/2019 47 (H) 9 - 20 mg/dl Final Creatinine Date Value Ref Range Status 05/26/2019 9.3 (H) 0.8 - 1.5 mg/dl Final INR Date Value Ref Range Status 05/25/2019 1.58 (H) 0.79 - 1.15 Ratio Final Comment: INR Therapeutic Range: 2.0 - 3.5 Assessment/Plan: Principal Problem: Cellulitis ESRD on HD at home: 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 Dry weight is 64kg. He has 2 fistulas, left arm and right leg. He normally alternates. Left arm fistula was used almost 2 weeks ago. Now he presents with left arm cellulitis, vascular surgery is involved to check the patency of left arm fistula. Unable to hear any bruit or thrill because of extensive swelling and tenderness. On IVclindamycin. Blood cultures in process. Possible plan of angioplasty of graft vs ligation of graft. - Volume status: Hypervolemic with +2 edema till thighs. - Blood pressure: Stable - Bone and Mineral Metabolism: Calcium 7.8. PTH 50.4 and Vit D pending. Continue with calcitriol, Tums - Anemia of CKD: Hb 7.7. Iron studies checked. Low % sat and TIBC and serum iron. Continue with EPO. - Electrolytes: Stable. Will monitor potassium, magnesium and phosphorus. Continue with Kayexalate. - Access: Right lower extremity and left arm fistula. Access from right upper extremity fistula. - Dialysis: MWFS. will do 2 hour dialysis today. Patient was seen and discussed with Dr Clinton Author: Kayli Noonan MD Associated attestation - Huseyin Clinton MD - [facility] Supervising Documentation Date of Service: 05/26/2019 B# [id number] I saw and evaluated the patient 05/26/2019. Discussed with resident Dr. Noonan and agree with the resident's findings and plan as documented in the resident's note. please review resident note for complete details. Additional Comments: ESRD: Hd tomorrow. Huseyin Clinton MD Supervising Physician Zakiya Ernandez MD - 05/26/2019 9:51 AM EDT [facility] [place]. [id number] Vascular Surgery Progress Note Date of Service: 05/26/2019 Patient: Oscar Cleary #: [id number] Attending: MERCED SPRINGER MD ,MD Subjective: Fall this morning that it was documented in the nursing staff notes , he hit the left forearm against the sink. He continues with left upper extremity swelling. Early results on blood cultures are negative. Physical: Objective: Blood pressure 117/63, pulse (!) 120, temperature 98.8 F (37.1 C), temperature source Temporal, resp. rate 16, height 5' 2" (1.575 m), weight 141 lb 1.5 oz (64 kg), SpO2 98 %. I/O: Date 05/25/19 07 - 05/26/19 0659 05/26/19 07 - 05/27/19 0659 Shift 1734-5791 7251-9184 1418-6514 24 Hour Total 0468-1775 5409-6480 1513-4814 24 Hour Total INTAKE P.O. 360 360 Shift Total(mL/kg) 360(5.63) 360(5.63) OUTPUT Shift Total(mL/kg) Weight (kg) 64 64 64 64 64 64 64 64 General: alert Lungs: normal Ext: Left upper extremity with swelling and some bruising of the left forearm less swelling in the left upper arm. Left hand appears to be warm and well- perfused, no discoloration or ulceration. A/P: 1. Left upper extremity swelling, no evidence of infection of the graft on the duplex ultrasound, the swelling could be related to the previously known left subclavian vein occlusion or possible related to the recurrent stenosis of the venous anastomosis that was seen on the duplex ultrasound. I recommended continuing follow-up on the blood cultures, if the blood cultures are negative as a final result I will discuss with the patient angioplasty of the venous anastomosis if a significant stenosis is found versus ligation of the graft. 2. Continue dialysis via the right leg graft. All questions were answered. Patient seems to understand. He agrees with the plan. Author: Zakiya Ernandez MD documented in this encounter Plan of Treatment Date Type Specialty Care Team Description 06/02/2019 Ancillary Procedure Radiology 06/02/2019 Office Visit Vascular Surgery Alcon Trinidad NP [address] [place] [address] 06/05/2019 Office Visit Infectious Diseases Juvenal Tilley MD [address] [place] [address] 08/11/2019 Office Visit Gastroenterology Cielo Gould MD [address] [place] [address] Name Type Priority Associated Diagnoses Date/Time VL UPPER EXTREMITY Imaging Routine 05/25/2019 10:16 AM EDT DUPLEX AVFISTULA LEFT Health Maintenance Due Date Last Done Comments [...] of this encounter Implants Implanted Type Area Gem Setter Device Shelf Model / Identifier Expiration Serial / Lot Date [place] Graft Regular Wall 6x40 - [id number] Left: Arm [employer] [id number] / Implanted: Qty: 1 on 03/10/2012 at [facility] / [id number] Propaten Graft Right: [employer] [id number] / Implanted: Qty: 1 on 12/13/2012 at [facility] / [id number] Description:[id number] Artegraft Collagen Vascular Graft Right: Leg 02/26/2018 [id number] / Implanted: Qty: 1 on 08/26/2015 by Zakiya Ernandez MD at [facility] / [id number] Description:[id number] documented as of this encounter Procedures Procedure Name Priority Date/Time Associated Comments Diagnosis RENAL FUNCTION PANEL Routine 05/29/2019 5:32 Results for this AM EDT procedure are in the results section. RENAL FUNCTION PANEL Routine 05/28/2019 5:54 Results for this AM EDT procedure are in the results section. MAGNESIUM LEVEL Routine 05/28/2019 5:54 Results for this AM EDT procedure are in the results section. CBC NO DIFFERENTIAL Routine 05/28/2019 5:54 Results for this AM EDT procedure are in the results section. RAINBOW LAB HOLD TUBES Routine 05/27/2019 5:09 Results for this AM EDT procedure are in the results section. RAINBOW DRAW LAVENDER Routine 05/27/2019 5:09 TOP AM EDT RENAL FUNCTION PANEL Routine 05/27/2019 5:09 Results for this AM EDT procedure are in the results section. VITAMIN D 25 HYDROXY STAT 05/26/2019 7:55 Results for this ([facility]) AM EDT procedure are in the results section. IRON & TIBC WITH % STAT 05/26/2019 7:55 Results for this SATURATION AM EDT procedure are in the results section. VITAMIN B12 / FOLATE STAT 05/26/2019 7:55 Results for this AM EDT procedure are in the results section. RENAL FUNCTION PANEL STAT 05/26/2019 7:55 Results for this AM EDT procedure are in the results section. INTACT PTH STAT 05/26/2019 7:55 Results for this AM EDT procedure are in the results section. FERRITIN STAT 05/26/2019 7:55 Results for this AM EDT procedure are in the results section. CBC WITH DIFFERENTIAL Routine 05/25/2019 9:42 Results for this AM EDT procedure are in the results section. VITAMIN B12 / FOLATE Routine 05/25/2019 9:42 Results for this AM EDT procedure are in the results section. THYROID STIMULATING STAT 05/25/2019 9:42 Results for this HORMONE AM EDT procedure are in the results section. MAGNESIUM LEVEL Routine 05/25/2019 9:42 Results for this AM EDT procedure are in the results section. COMPREHENSIVE METABOLIC STAT 05/25/2019 9:42 Results for this PANEL AM EDT procedure are in the results section. PROTHROMBIN TIME Routine 05/25/2019 9:42 Results for this AM EDT procedure are in the results section. PARTIAL THROMBOPLASTIN Routine 05/25/2019 9:42 Results for this TIME AM EDT procedure are in the results section. XR FOREARM 2 VIEWS LEFT STAT 05/24/2019 10:10 Results for this (STANDARD) PM EDT procedure are in the results section. ADULT BLOOD CULTURE Routine 05/24/2019 9:27 Results for this PM EDT procedure are in the results section. BLOOD CULTURESC&S) Routine 05/24/2019 9:27 Results for this PM EDT procedure are in the results section. CBC WITH DIFFERENTIAL STAT 05/24/2019 9:25 Results for this PM EDT procedure are in the results section. ADULT BLOOD CULTURE Routine 05/24/2019 9:25 Results for this PM EDT procedure are in the results section. BLOOD CULTURESC&S) Routine 05/24/2019 9:25 Results for this PM EDT procedure are in the results section. MAGNESIUM LEVEL STAT 05/24/2019 9:25 Results for this PM EDT procedure are in the results section. LACTIC ACID (LAB) STAT 05/24/2019 9:25 Results for this PM EDT procedure are in the results section. COMPREHENSIVE METABOLIC STAT 05/24/2019 9:25 Results for this PANEL PM EDT procedure are in the results section. PROTHROMBIN TIME STAT 05/24/2019 9:25 Results for this PM EDT procedure are in the results section. SIGN PERMIT 05/24/2019 12:00 PM EDT documented in this encounter Results RENAL FUNCTION PANEL (05/29/2019 5:32 AM EDT) Sodium 139 134 - 145 mmol/L [facility] Potassium 3.8 3.5 - 5.1 mmol/L [facility] Chloride 94 (L) 98 - 107 mmol/L [facility] CO2 31 (H) 22 - 30 mmol/L [facility] Glucose 107 (H) 70 - 99 mg/dl [facility] Creatinine 9.3 (H) 0.8 - 1.5 mg/dl [facility] BUN 36 (H) 9 - 20 mg/dl [facility] Calcium 9.6 8.3 - 10.1 mg/dl [facility] Albumin 4.4 3.5 - 5.0 g/dl [facility] Phosphorus 6.3 (H) 2.5 - 4.5 MG/DL [facility] eGFR 7 See Interpretation [facility] Comment: Below ml/min/1.73ml GROUP Estimated GFR Interpretation: Sq LABORATORY Above 60ml/min/1.73m2 = Normal Renal Function 30-59 ml/min/1.73m2 = Stage 3 Chronic Kidney Disease 15-29 ml/min/1.73m2 = Stage 4 Chronic Kidney Disease Less than 15 ml/min/1.73m2 = Stage 5 Chronic Kidney Disease The GFR value is calculated using the Modification of Diet in Renal Disease ( MDRD) Study Equation which can be found at: https://www.kidney.org/content/mxrm-majqs-dbrknteq BUN/Creatinine 4 (L) 6 - 22 RATIO [facility] Ratio [facility] Anion Gap 14 (H) 3 - 11 mmol/L [facility] Specimen Blood - Blood specimen (specimen) Performing Organization Address City/[facility] Phone Number [facility] [address] [facility] [place] [address] CBC NO DIFFERENTIAL (05/28/2019 5:54 AM EDT) WBC Count 3.32 (L)Comment: 4.23 - 9.07 [facility] Methodology was K/uL [facility] changed 09/01/2018. Please note updated reference range and units. RBC Count 2.50 (L) 4.30 - 5.89 [facility] M/UL [facility] Hemoglobin 7.7 (L) 13.7 - 17.5 [facility] g/dL [facility] Hematocrit 24.7 (L) 40.1 - 51.0 % [facility] MCV 98.8 (H) 79.0 - 92.2 [facility] FL [facility] MCH 30.8 25.7 - 32.2 [facility] PG [facility] MCHC 31.2 (L) 32.3 - 36.5 [facility] g/dL [facility] Platelet Count 186 163 - 337 [facility] K/uL [facility] MPV 10.5 9.4 - 12.4 [place] [facility] RDW 18.0 (H) 11.6 - 14.4 % [facility] Specimen Blood - Blood specimen (specimen) Performing Organization Address City/[facility] Phone Number [facility] [address] [place] [address] [phone] MAGNESIUM LEVEL (05/28/2019 5:54 AM EDT) Magnesium 2.2 1.6 - 2.3 MG/DL [facility] Specimen Blood - Blood specimen (specimen) Performing Organization Address [facility] Phone Number [facility] [address] [facility] [place] [place] [address] RENAL FUNCTION PANEL (05/28/2019 5:54 AM EDT) Sodium 139 134 - 145 mmol/L [facility] Potassium 3.9 3.5 - 5.1 mmol/L [facility] Chloride 93 (L) 98 - 107 mmol/L [facility] CO2 30 22 - 30 mmol/L [facility] Glucose 127 (H) 70 - 99 mg/dl [facility] Creatinine 7.6 (H) 0.8 - 1.5 mg/dl [facility] BUN 26 (H) 9 - 20 mg/dl [facility] Calcium 8.8 8.3 - 10.1 mg/dl [facility] Albumin 4.3 3.5 - 5.0 g/dl [facility] Phosphorus 6.1 (H) 2.5 - 4.5 MG/DL [facility] eGFR 8 See Interpretation [facility] Comment: Below ml/min/1.73ml GROUP Estimated GFR Interpretation: Sq LABORATORY Above 60ml/min/1.73m2 = Normal Renal Function 30-59 ml/min/1.73m2 = Stage 3 Chronic Kidney Disease 15-29 ml/min/1.73m2 = Stage 4 Chronic Kidney Disease Less than 15 ml/min/1.73m2 = Stage 5 Chronic Kidney Disease The GFR value is calculated using the Modification of Diet in Renal Disease ( MDRD) Study Equation which can be found at: https://www.kidney.org/content/vumj-ndtld-hysqqnat BUN/Creatinine 3 (L) 6 - 22 RATIO [facility] Anion Gap 16 (H) 3 - 11 mmol/L [facility] Specimen Blood - Blood specimen (specimen) Performing Organization Address [facility] Phone Number [facility] [address] [place] [address] RAINBOW DRAW LAVENDER TOP (05/27/2019 5:09 AM EDT) Specimen Blood - Blood specimen (specimen) Performing Organization Address [facility] Phone Number [facility] [address] [place] [address] [phone] RENAL FUNCTION PANEL (05/27/2019 5:09 AM EDT) Sodium 139 134 - 145 mmol/L [facility] Potassium 4.4 3.5 - 5.1 mmol/L [facility] Chloride 88 (L) 98 - 107 mmol/L [facility] CO2 28 22 - 30 mmol/L [facility] Glucose 98 70 - 99 mg/dl [facility] Creatinine 11.3 (H) 0.8 - 1.5 mg/dl [facility] BUN 59 (H) 9 - 20 mg/dl [facility] Calcium 8.4 8.3 - 10.1 mg/dl [facility] Albumin 4.7 3.5 - 5.0 g/dl [facility] Phosphorus 8.1 (H) 2.5 - 4.5 MG/DL [facility] eGFR 5 See Interpretation [facility] Comment: Below ml/min/1.73ml GROUP Estimated GFR Interpretation: Sq LABORATORY Above 60ml/min/1.73m2 = Normal Renal Function 30-59 ml/min/1.73m2 = Stage 3 Chronic Kidney Disease 15-29 ml/min/1.73m2 = Stage 4 Chronic Kidney Disease Less than 15 ml/min/1.73m2 = Stage 5 Chronic Kidney Disease The GFR value is calculated using the Modification of Diet in Renal Disease ( MDRD) Study Equation which can be found at: https://www.kidney.org/content/mtcm-kjzcc-gxmpcpnn BUN/Creatinine 5 (L) 6 - 22 RATIO [facility] GROUP LABORATORY Anion Gap 23 (H) 3 - 11 mmol/L [facility] Specimen Blood - Blood specimen (specimen) Performing Organization Address City/[facility]/Zipcode Phone Number [facility] [address] [place] [address] INTACT PTH (05/26/2019 7:55 AM EDT) PTH Intact 50.4 10.0 - 73.0 pg/ml [facility] Specimen Blood - Blood specimen (specimen) Performing Organization Address [facility] Phone Number [facility] [address] [place] [address] VITAMIN D 25 HYDROXY (ASSONET) (05/26/2019 7:55 AM EDT) Vitamin D 25 HYDROXY 14.4 (L) 32.0 - 100.0 [facility] ng/ml [facility] Specimen Blood - Blood specimen (specimen) Narrative Performed At Interpretation: [facility] <20 ng/ml Deficiency 20-<30 ng/ml Insufficiency 32-100 ng/ml Sufficiency >100 ng/ml Potential Toxicity Performing Organization Address [facility] Phone Number [facility] [address] [place] [address] FERRITIN (05/26/2019 7:55 AM EDT) Ferritin 796.0 (H) 18.0 - 464.0 NG/ML [facility] Specimen Blood - Blood specimen (specimen) Performing Organization Address [facility] Phone Number [facility] [address] [place] [address] VITAMIN B12 / FOLATE (05/26/2019 7:55 AM EDT) Vitamin B12 462 239 - 931 pg/ml [facility] Folate 10.6 2.8 - 20.0 ng/ml [facility] Specimen Blood - Blood specimen (specimen) Performing Organization Address [facility] Phone Number [facility] [address] [place] [address] IRON & TIBC WITH % SATURATION (05/26/2019 7:55 AM EDT) Iron Serum 41 (L) 49 - 181 UG/DL [facility] Iron Binding Capacity 226 (L) 261 - 478 UG/DL [facility] % Saturation 18 (L) 20 - 50 % [facility] Calculation [facility] Specimen Blood - Blood specimen (specimen) Performing Organization Address [facility] Phone Number [facility] [address] [place] [address] [phone] RENAL FUNCTION PANEL (05/26/2019 7:55 AM EDT) Sodium 137 134 - 145 mmol/L [facility] Potassium 4.3 3.5 - 5.1 mmol/L [facility] Chloride 89 (L) 98 - 107 mmol/L [facility] CO2 30 22 - 30 mmol/L [facility] Glucose 122 (H) 70 - 99 mg/dl [facility] Creatinine 9.3 (H) 0.8 - 1.5 mg/dl [facility] BUN 47 (H) 9 - 20 mg/dl [facility] Calcium 7.8 (L) 8.3 - 10.1 mg/dl [facility] Albumin 4.4 3.5 - 5.0 g/dl [facility] Phosphorus 6.8 (H) 2.5 - 4.5 MG/DL [facility] eGFR 7 See Interpretation [facility] Comment: Below ml/min/1.73ml GROUP Estimated GFR Interpretation: Sq LABORATORY Above 60ml/min/1.73m2 = Normal Renal Function 30-59 ml/min/1.73m2 = Stage 3 Chronic Kidney Disease 15-29 ml/min/1.73m2 = Stage 4 Chronic Kidney Disease Less than 15 ml/min/1.73m2 = Stage 5 Chronic Kidney Disease The GFR value is calculated using the Modification of Diet in Renal Disease ( MDRD) Study Equation which can be found at: https://www.kidney.org/content/hvvi-wjfuu-xrpfosnw BUN/Creatinine 5 (L) 6 - 22 [facility] Anion Gap 18 (H) 3 - 11 mmol/L [facility] Specimen Blood - Blood specimen (specimen) Performing Organization Address City/[facility] Phone Number [facility] [address] [place] [address] PARTIAL THROMBOPLASTIN TIME (05/25/2019 9:42 AM EDT) PTT 55.6 (H) 22.8 - 34.7 SEC [facility] Specimen Blood - Blood specimen (specimen) Performing Organization Address [facility] Phone Number [facility] [address] [place] [address] PROTHROMBIN TIME (05/25/2019 9:42 AM EDT) INR 1.58 (H)Comment: INR 0.79 - 1.15 [facility] Therapeutic Range: Ratio GROUP LABORATORY 2.0 - 3.5 Protime 18.6 (H) 11.4 - 14.3 sec [facility] Specimen Blood - Blood specimen (specimen) Performing Organization Address [facility] Phone Number [facility] [address] [facility] [address] CBC WITH DIFFERENTIAL (05/25/2019 9:42 AM EDT) WBC Count 8.62 4.23 - 9.07 K/uL [facility] RBC Count 2.42 (L) 4.30 - 5.89 M/UL [facility] Hemoglobin 7.7 (L) 13.7 - 17.5 g/dL [facility] Hematocrit 24.4 (L) 40.1 - 51.0 % [facility] MCV 100.8 (H) 79.0 - 92.2 FL [facility] MCH 31.8 25.7 - 32.2 PG [facility] MCHC 31.6 (L) 32.3 - 36.5 g/dL [facility] Platelet Count 168 163 - 337 K/uL [facility] MPV 9.7 9.4 - 12.4 FL [facility] RDW 18.6 (H) 11.6 - 14.4 % [facility] Neutrophil % 81.5 (H) 34.0 - 67.9 % [facility] Lymphocyte % 6.3 (L) 21.8 - 53.1 % [facility] Monocyte % 8.9 5.3 - 12.2 % [facility] Eosinophil % 1.9 0.8 - 7.0 % [facility] Basophil % 0.5 0.2 - 1.2 % [facility] nRBC % 0.0 0.0 - 0.2 % [facility] Neutrophil # 7.03 (H) 1.78 - 5.38 K/UL [facility] Lymphocyte # 0.54 (L) 1.32 - 3.57 K/UL [facility] Monocyte # 0.77 0.30 - 0.82 K/UL [facility] Eosinophil # 0.16 0.04 - 0.54 K/UL [facility] Basophil # 0.04 0.01 - 0.08 K/UL [facility] Immature Gran % 0.9 (H) 0.0 - 0.4 % [facility] Immature Gran # 0.08 (H) 0.00 - 0.03 K/uL [facility] NRBC # 0.00 0.00 - 0.12 K/uL [facility] Specimen Blood - Blood specimen (specimen) Performing Organization Address [facility] Phone Number [facility] [address] [place] [address] THYROID STIMULATING HORMONE (05/25/2019 9:42 AM EDT) TSH 3.64 0.47 - 4.68 uIu/ml [facility] Specimen Blood - Blood specimen (specimen) Performing Organization Address [facility] Phone Number [facility] [address] [place] [address] MAGNESIUM LEVEL (05/25/2019 9:42 AM EDT) Magnesium 2.1 1.6 - 2.3 MG/DL [facility] Specimen Blood - Blood specimen (specimen) Performing Organization Address [facility] Phone Number [facility] [address] [place] [address] [phone] VITAMIN B12 / FOLATE (05/25/2019 9:42 AM EDT) Vitamin B12 394 849 - 041 pg/ml [facility] Folate 15.5 2.8 - 20.0 ng/ml [facility] Specimen Blood - Blood specimen (specimen) Performing Organization Address City/State/Zipcode Phone Number [facility] [address] [facility] [place] [address] [phone] COMPREHENSIVE METABOLIC PANEL (05/25/2019 9:42 AM EDT) Sodium 137 134 - 145 mmol/L [facility] Potassium 5.1 3.5 - 5.1 mmol/L [facility] Chloride 91 (L) 98 - 107 mmol/L [facility] CO2 28 22 - 30 mmol/L [facility] Calcium 7.4 (L) 8.3 - 10.1 mg/dl [facility] Albumin 4.5 3.5 - 5.0 g/dl [facility] BUN 69 (H) 9 - 20 mg/dl [facility] Creatinine 11.8 (H) 0.8 - 1.5 mg/dl [facility] Glucose 84 70 - 99 mg/dl [facility] Total Protein 8.5 (H) 6.3 - 8.2 g/dl [facility] Total Bilirubin 1.1 0.0 - 1.1 MG/DL [facility] AST 33 17 - 59 U/L [facility] ALT 22 21 - 72 U/L [facility] Alkaline 89 40 - 150 U/L [facility] eGFR 5 See Interpretation [facility] Comment: Below ml/min/1.73ml GROUP Estimated GFR Interpretation: Sq LABORATORY Above 60ml/min/1.73m2 = Normal Renal Function 30-59 ml/min/1.73m2 = Stage 3 Chronic Kidney Disease 15-29 ml/min/1.73m2 = Stage 4 Chronic Kidney Disease Less than 15 ml/min/1.73m2 = Stage 5 Chronic Kidney Disease The GFR value is calculated using the Modification of Diet in Renal Disease ( MDRD) Study Equation which can be found at: https://www.kidney.org/content/qgmt-upopq-penkqlqn BUN/Creatinine 6 6 - 22 [facility]ORY Anion Gap 18 (H) 3 - 11 mmol/L [facility] A/G Ratio 1.1 0.8 - 2.0 ratio [facility] Specimen Blood - Blood specimen (specimen) Performing Organization Address City/State/Zipcode Phone Number [facility] [address] [place] [address] [phone] XR FOREARM 2 VIEWS LEFT (STANDARD) (05/24/2019 10:10 PM EDT) Specimen Impressions Performed At 1. Nonspecific diffuse infiltration of the subcutaneous fat in the forearm. This could be related to passive edema, infection, or trauma. Signed by Lyndon aCsanova on 05/24/2019 10:13 PM Narrative Performed At Procedure(s): XR FOREARM 2 VIEWS LEFT (STANDARD) Date of service: 05/24/2019 9:59 PM Provided clinical information: 33 years, Male, "pain, swelling" Procedure and materials: Standard protocol. Comparison studies: 05/23/2018 Observations: Side: 3 views of the left forearm were obtained. Bones: Intact with no displaced fracture or focal osseous destruction. Joints: There is anatomic alignment at the wrist and elbow with normal joint spaces. Soft tissues: There is generalized infiltration of the subcutaneous fat throughout the forearm. Some apparent vascular calcifications are partially visualized in the upper arm. Procedure Note Interface, Rad Results - 05/24/2019 10:15 PM EDT Procedure(s): XR FOREARM 2 VIEWS LEFT (STANDARD) Date of service: 05/24/2019 9:59 PM Provided clinical information: 33 years, Male, "pain, swelling" Procedure and materials: Standard protocol. Comparison studies: 05/23/2018 Observations: Side: 3 views of the left forearm were obtained. Bones: Intact with no displaced fracture or focal osseous destruction. Joints: There is anatomic alignment at the wrist and elbow with normal joint spaces. Soft tissues: There is generalized infiltration of the subcutaneous fat throughout the forearm. Some apparent vascular calcifications are partially visualized in the upper arm. IMPRESSION 1. Nonspecific diffuse infiltration of the subcutaneous fat in the forearm. This could be related to passive edema, infection, or trauma. Signed by Lyndon Casanova on 05/24/2019 10:13 PM ADULT BLOOD CULTURE (05/24/2019 9:27 PM EDT) ADULT BLOOD CULTURE No Growth in 5 [facility] LABORATORY Specimen Blood - Blood specimen (specimen) Performing Organization Address [facility] Phone Number [facility] [address] [place] [address] ADULT BLOOD CULTURE (05/24/2019 9:25 PM EDT) ADULT BLOOD CULTURE No Growth in 5 [facility] LABORATORY Specimen Blood - Blood specimen (specimen) Performing Organization Address [facility] Phone Number [facility] [address] [place] [address] [phone] MAGNESIUM LEVEL (05/24/2019 9:25 PM EDT) Magnesium 1.5 (L) 1.6 - 2.3 MG/DL [facility] Specimen Blood - Blood specimen (specimen) Performing Organization Address [facility] Phone Number [facility] [address] [place] [address] [phone] PROTHROMBIN TIME (05/24/2019 9:25 PM EDT) INR 1.52 (H)Comment: INR 0.79 - 1.15 [facility] Therapeutic Range: [facility] GROUP LABORATORY 2.0 - 3.5 Protime 18.0 (H) 11.4 - 14.3 sec [facility] Specimen Blood - Blood specimen (specimen) Performing Organization Address [facility] Phone Number [facility] [address] [place] [address] COMPREHENSIVE METABOLIC PANEL (05/24/2019 9:25 PM EDT) Sodium 135 134 - 145 mmol/L [facility] Potassium 4.6 3.5 - 5.1 mmol/L [facility] Chloride 92 (L) 98 - 107 mmol/L [facility] CO2 27 22 - 30 mmol/L [facility] Calcium 8.1 (L) 8.3 - 10.1 mg/dl [facility] Albumin 4.4 3.5 - 5.0 g/dl [facility] BUN 58 (H) 9 - 20 mg/dl [facility] Creatinine 10.6 (H) 0.8 - 1.5 mg/dl [facility] Glucose 102 (H) 70 - 99 mg/dl [facility] Total Protein 8.4 (H) 6.3 - 8.2 g/dl [facility] Total Bilirubin 1.2 (H) 0.0 - 1.1 MG/DL [facility] AST 31 17 - 59 U/L [facility] ALT 30 21 - 72 U/L [facility] Alkaline 82 40 - 150 U/L [facility] Phosphatase [facility] eGFR 6 See Interpretation [facility] Comment: Below ml/min/1.73ml GROUP Estimated GFR Interpretation: Sq LABORATORY Above 60ml/min/1.73m2 = Normal Renal Function 30-59 ml/min/1.73m2 = Stage 3 Chronic Kidney Disease 15-29 ml/min/1.73m2 = Stage 4 Chronic Kidney Disease Less than 15 ml/min/1.73m2 = Stage 5 Chronic Kidney Disease The GFR value is calculated using the Modification of Diet in Renal Disease ( MDRD) Study Equation which can be found at: https://www.kidney.org/content/uitp-aihbz-hxputgei BUN/Creatinine 5 (L) 6 - 22 [facility]AT[facility] LABORATORY Anion Gap 16 (H) 3 - 11 mmol/L [facility] A/G Ratio 1.1 0.8 - 2.0 ratio [facility] Specimen Blood - Blood specimen (specimen) Performing Organization Address City/State/Zipcode Phone Number [facility] [address] [place] [address] CBC WITH DIFFERENTIAL (05/24/2019 9:25 PM EDT) WBC Count 10.10 (H) 4.23 - 9.07 K/uL [facility] RBC Count 2.39 (L) 4.30 - 5.89 M/UL [facility] Hemoglobin 7.5 (L) 13.7 - 17.5 g/dL [facility] Hematocrit 23.3 (L) 40.1 - 51.0 % [facility] MCV 97.5 (H) 79.0 - 92.2 FL [facility] MCH 31.4 25.7 - 32.2 PG [facility] MCHC 32.2 (L) 32.3 - 36.5 g/dL [facility] Platelet Count 187 163 - 337 K/uL [facility] MPV 9.9 9.4 - 12.4 FL [facility] RDW 18.6 (H) 11.6 - 14.4 % [facility] Neutrophil % 82.3 (H) 34.0 - 67.9 % [facility] Lymphocyte % 6.7 (L) 21.8 - 53.1 % [facility] Monocyte % 9.4 5.3 - 12.2 % [facility] Eosinophil % 0.6 (L) 0.8 - 7.0 % [facility] Basophil % 0.5 0.2 - 1.2 % [facility] nRBC % 0.0 0.0 - 0.2 % [facility] Neutrophil # 8.31 (H) 1.78 - 5.38 K/UL [facility] Lymphocyte # 0.68 (L) 1.32 - 3.57 K/UL [facility] Monocyte # 0.95 (H) 0.30 - 0.82 K/UL [facility] Eosinophil # 0.06 0.04 - 0.54 K/UL [facility] Basophil # 0.05 0.01 - 0.08 K/UL [facility] Immature Gran % 0.5 (H) 0.0 - 0.4 % [facility] Immature Gran # 0.05 (H) 0.00 - 0.03 K/uL [facility] NRBC # 0.00 0.00 - 0.12 K/uL [facility] Specimen Blood - Blood specimen (specimen) Performing Organization Address City/[facility] Phone Number [facility] [address] [place] [address] LACTIC ACID (LAB) (05/24/2019 9:25 PM EDT) Lactic Acid 0.8 0.7 - 2.1 MMOL/L [facility] Specimen Blood - Blood specimen (specimen) Performing Organization Address [facility] Phone Number [facility] [address] [place] documented in this encounter Visit Diagnoses Diagnosis Sepsis due to cellulitis (HCC) - Primary Cellulitis of forearm, left Cellulitis and abscess of upper arm and forearm ESRD on dialysis (HCC) End stage renal disease Cellulitis Cellulitis and abscess of unspecified site documented in this encounter Administered Medications Medication Order MAR Action Action Date Dose Rate Site acetaminophen (TYLENOL) tablet Given 05/24/2019 8:57 PM EDT 650 mg 650 mg 650 mg, Oral, NOW, 1 dose, Wed05/24/19 at 2050 acetaminophen (TYLENOL) tablet 650 mg Given 05/27/2019 8:49 PM EDT 650 mg 650 mg, Oral, Q6 HRS PRN, Starting Wed05/25/19 at 0337, Until Wed05/29/19 at 1903, Mild Pain (pain scale 1-3) - PO - 1st line - if immediate effect not required and patient can tolerate PO, headache, Temp > 101 - 1st line Given 05/26/2019 1:32 AM EDT 650 mg calcitriol (ROCALTROL) capsule 2 mcg Given 05/26/2019 8:54 AM EDT 2 mcg 2 mcg, Oral, DAILY, First dose on Wed05/25/19 at 0900, Until Discontinued calcitriol (ROCALTROL) capsule 2 mcg Given 05/29/2019 8:31 AM EDT 2 mcg 2 mcg, Oral, DAILY, First dose (after last modification) on Wed05/28/19 at 0900, Until Discontinued Given 05/28/2019 9:00 AM EDT 2 mcg calcium carbonate (CALTRATE) tablet 600 mg Given 05/29/2019 2:24 PM EDT 600 mg 600 mg (rounded from 640 mg), Oral, TID WITH MEALS, First dose on Lachelle 05/25/19 at 0800, Until Discontinued Given 05/29/2019 8:31 AM EDT 600 mg Given 05/28/2019 6:17 PM EDT 600 mg clindamycin (CLEOCIN) capsule 300 mg Given 05/29/2019 2:23 PM EDT 300 mg 300 mg, Oral, Q6 HRS, 12 doses, First dose on Wed05/28/19 at 1710, Last dose on Wed05/31/19 at 1110 Given 05/29/2019 5:45 AM EDT 300 mg Given 05/28/2019 10:50 PM EDT 300 mg clindamycin (CLEOCIN) IV premix 600 mg New Bag 05/24/2019 10:32 PM EDT 600 mg 600 mg, Intravenous, NOW, 1 dose, Wed05/24/19 at 2155 clindamycin (CLEOCIN) IV premix 600 mg New Bag 05/28/2019 11:12 AM EDT 600 mg 600 mg, Intravenous, Q6 HRS, 28 doses, First dose (after last modification) on Wed05/25/19 at 0445, Last dose on Wed05/31/19 at 2245 New Bag 05/28/2019 4:47 AM EDT 600 mg New Bag 05/27/2019 10:57 PM EDT 600 mg ergocalciferol (DRISDOL, CALCIFEROL, Given 05/27/2019 10:57 AM EDT 50,000 Units VITAMIN D) capsule 50,000 Units 50,000 Units, Oral, Q7DAYS, 12 doses, First dose on 05/27/19 at 1050, Last dose on Wed08/12/19 at 1050 gabapentin (NEURONTIN) capsule 100 mg Given 05/29/2019 8:31 AM EDT 100 mg 100 mg, Oral, TID, First dose on Wed05/25/19 at 0900, Until Discontinued Given 05/28/2019 10:52 PM EDT 100 mg Given 05/28/2019 6:17 PM EDT 100 mg HYDROmorphone (DILAUDID) syringe 0.3 mg Given 05/25/2019 6:26 PM EDT 0.3 mg 0.3 mg, Intravenous Push, Q2 HRS PRN, Starting Wed05/25/19 at 0342, Until Wed05/26/19 at 1817, Moderate Pain (pain scale 4-6) - IV - 1st line - if immediate effect required or patient cannot tolerate PO HYDROmorphone (DILAUDID) syringe 0.5 mg Given 05/25/2019 10:48 AM EDT 0.5 mg 0.5 mg, Intravenous Push, Q2 HRS PRN, Starting Wed05/25/19 at 0342, Until Wed05/25/19 at 1543, Severe Pain (pain scale 7-10) - IV - 1st line - if immediate effect required or patient cannot tolerate PO Given 05/25/2019 8:42 AM EDT 0.5 mg HYDROmorphone (DILAUDID) syringe 1 mg Given 05/26/2019 5:41 PM EDT 1 mg 1 mg, Intravenous Push, Q2 HRS PRN, Starting Lachelle 05/25/19 at 1542, Until Wed05/26/19 at 1817, Severe Pain (pain scale 7-10) - IV - 1st line - if immediate effect required or patient cannot tolerate PO Given 05/26/2019 11:26 AM EDT 1 mg Given 05/26/2019 8:55 AM EDT 1 mg HYDROmorphone (DILAUDID) syringe 1 mg Given 05/26/2019 5:41 AM EDT 1 mg 1 mg, Intravenous Push, X1, 1 dose, First dose on Wed05/26/19 at 0520 HYDROmorphone (DILAUDID) syringe 2 mg Given 05/27/2019 12:15 PM EDT 2 mg 2 mg, Intravenous Push, Q2 HRS PRN, Starting Wed05/26/19 at 1817, Until 05/27/19 at 1521, Severe Pain (pain scale 7-10) - IV - 1st line - if immediate effect required or patient cannot tolerate PO Given 05/27/2019 10:06 AM EDT 2 mg Arm - Lower Left Given 05/27/2019 3:51 AM EDT 2 mg magnesium sulfate IV premix 1 g New Bag 05/25/2019 6:01 AM EDT 1 g 1 g, Intravenous, Q1 HR, 1 dose, First dose on Lachelle 05/25/19 at 0550 morphine syringe 6 mg Given 05/24/2019 10:23 PM EDT 6 mg 6 mg, Intravenous Push, NOW, 1 dose, Wed05/24/19 at 2150 ondansetron (ZOFRAN) injection 4 mg Given 05/24/2019 10:20 PM EDT 4 mg 4 mg, Intravenous Push, X1, 1 dose, First dose on Wed05/24/19 at 2315 OXYcodone (OXY-IR,OXY-FAST) immediate release Given 05/29/2019 2:24 PM EDT 5 mg tablet 5 mg 5 mg, Oral, Q6 HRS PRN, Starting 05/27/19 at 1753, Until 05/29/19 at 1903, Moderate Pain (pain scale 4-6) - PO - 1st line - if immediate effect not required and patient can tolerate PO Given 05/29/2019 8:31 AM EDT 5 mg Given 05/28/2019 6:17 PM EDT 5 mg OXYcodone-acetaminophen (PERCOCET) 5-325 mg 1 Given 05/25/2019 2:07 AM EDT 1 Tab Tab 1 Tab, Oral, Q4 HRS PRN, Starting Lachelle 05/25/19 at 0105, Until Lachelle 05/25/19 at 0343, fever sodium ferric gluconate complex in sucrose New Bag 05/27/2019 11:57 AM EDT 125 mg (FERRLECIT) IV mixture 125 mg 125 mg, Intravenous, X1, 1 dose, First dose on 05/27/19 at 1100 documented in this encounter Insurance Payer Benefit Plan / Subscriber ID Effective Dates Phone Address Type Group MEDICARE MEDICARE PART A xxxxxxxxxxx 1986-Present Medicare & B MEDICAID [facility] xxxxxxxx 2016-Present Medicaid [place] documented as of this encounter Advance Directives Code Status Date Activated Date Inactivated Comments Full Code 05/25/2019 3:43 AM Does the patient have decision making capacity? Yes Order was discussed with: Patient I discussed all options and patient/surrogate requested and agreed to: Full Code
--- OUTSIDE RECORDS SUMMARY | 2019-07-20 19:23 | XMS REPORT | Summary of Care ---
:1985 Author Organization [facility] Address [address] [address] Care Team Providers Name Role Phone Shania Beyer Primary Care Provider Reason for Referral MRI/CAT/PET Scan (Routine) Status Reason Specialty Diagnoses / Procedures Referred By Contact Referred To Contact Closed Diagnoses End stage renal disease (HCC) Zakiya Ernandez Procedures VL LOWER EXTREMITY DUPLEX ARTERIES RIGHT MD [place] [address] [id number] Reason for Visit Reason Comments Follow Up pt. here re: issues w/ right thigh dialysis access & left arm dialysis graft. pt. w/ full dialysis treatment yesterday through right thigh. thrill & bruit noted w/ left arm & right thigh. 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 Every Wednesday & Wed. Indications: as directed sodium [...] (TYLENOL) 325 MG Oral mouth EVERY Tab SIX HOURS NEEDED (Pain). gabapentin Take 100 mg by 0 Active (NEURONTIN) 100 MG mouth THREE Oral Cap TIMES DAILY. diphenhydrAMINE Take 1 Cap by 1 Cap 0 06/23/2019 Active (BENADRYL) 50 MG Oral mouth ONE TIME 9 CapIndications: for 1 dose. Allergy to IVP dye, Take 1 hour sequela prior to procedure predniSONE Take 1 Tab by 3 Tab 0 06/23/2019 Active (DELTASONE) 50 MG mouth DAILY. Oral TabIndications: Take one Allergy to IVP dye, tablet 13 sequela hours, 7 hours and 1 hour prior to the procedure acetaminophen Take 650 mg by 0 Discontinued (TYLENOL) 325 MG Oral mouth EVERY 9 Tab THREE HOURS NEEDED. ergocalciferol Take 1 Cap by 4 Cap 0 06/03/2019 Discontinued (DRISDOL, CALCIFEROL, mouth EVERY 7 9 VITAMIN D) 29823 DAYS. 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 03/27/2019 Overview: Added automatically from request for surgery [id number] AV shunt thrombosis, subsequent encounter 09/27/2018 Overview: Added automatically from request for surgery [id number] AV shunt stenosis, subsequent encounter 09/06/2018 Overview: Added automatically from request for surgery [id number] Mechanical complication of arteriovenous surgical shunt 08/02/2018 Overview: Added automatically from request for surgery [id number] Cellulitis 05/24/2018 Overview: Cat scratch disease vs Cellulitis in setting of Fistula proximity No systemic signs of infection, no WBC elevation Patient may have received IV Clindamycin at [place] without benefit for one day IV Ciprofloxacin and IV Flagyl in ED, Change to IV Unasyn and IV Doxycycline Vascular consulted for fistula assessment and care Infectious disease consulted at this time Blood cultures pending AV graft thrombosis, subsequent encounter 01/17/2018 Overview: Added automatically from request for surgery [id number] Arteriovenous graft stenosis, sequela 12/14/2017 Overview: Added automatically from request for surgery [id number] Stage 4 chronic kidney disease 12/14/2017 Overview: Added automatically from request for surgery [id number] Inferior vena caval stenosis 10/07/2016 End stage renal disease 02/06/2015 Iliac vein stenosis, right 02/06/2015 nursing home (current) use of anticoagulants 10/30/2013 Overview: [...] as of this encounter (statuses as of 06/23/2019) Resolved Problems Problem Noted Date Resolved Date Subclavian vein stenosis, 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 03/01/2012 Subclavian vein stenosis, 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 03/01/2012 documented as of this encounter (statuses as of 06/23/2019) Immunizations Name Administration Dates Next Due Influenza [...] Sign Reading Time Taken Comments Blood Pressure 128/58 06/23/2019 12:42 PM EDT Pulse 78 06/23/2019 12:42 PM EDT Temperature - - Respiratory Rate - - Oxygen Saturation - - Inhaled Oxygen Concentration - - Weight 68 kg (149 lb 14.6 oz) 06/23/2019 12:42 PM EDT Height 157.5 cm (5' 2") 06/23/2019 12:42 PM EDT Body Mass Index 27.42 06/23/2019 12:42 PM EDT documented in this encounter Patient Instructions Patient InstructionsCoAngelina cheung FNP - 06/23/2019 2:20 PM EDT1 Date of Surgery: 06/30/19 Procedure: right leg shuntogram, central venogram, possible angioplasty/stenting Your Surgeon: Dr. Ernandez One day before surgery: 06/29/19 Nothing to eat or drink after midnight Continue taking all medications by mouth Shower with Endur soap in the evening Day of surgery: 06/30/19 Nothing to eat or drink Take all of your blood pressure and cardiac medications you normally take in the morning with a sip of water If taking insulin take half of your long-acting (NPH) and do not take your regular insulin Come to Ambulatory Surgery Waiting Area on the 4th floor of the [facility] at the indicated time: 0630 YOU MUST HAVE A CATALYST OPERATOR CHIEF TO DRIVE YOU HOME AFTER THE PROCEDURE Preadmission services will call you to review insurance and nursing history. If you are not contacted by the day prior to your surgery, please contact them at [phone]. Please expect a 1-2 hour wait in prep and recovery prior to your surgery or procedure. The doctor will see your family after the procedure. If any questions call our office at [phone] or [phone] documented in this encounter Progress Notes Angelina Van FNP - 06/23/2019 2:20 PM EDT PATIENT: Oscar Peacock : 1985 DATE OF SERVICE: 06/23/2019 REFERRING PRACTITIONER: Self PRIMARY CARE PROVIDER: Shania Beyer Subjective CHIEF COMPLAINT: Chief Complaint Patient presents with Follow Up pt. here re: issues w/ right thigh dialysis access & left arm dialysis graft. pt. w/ full dialysis treatment yesterday through right thigh. thrill & bruit noted w/ left arm & right thigh. Subjective HISTORY OF PRESENT ILLNESS: Oscar Peacock is a 33-y.o. male who is seen today with c/o left hand numbness that comes and goes since he was admitted with cellulitis in April. Denies pain and discoloration in hand. The dialysis nurse told him he might have steal syndrome. He c/o high arterial pressure in right thigh graft. He is still getting full treatments through it. He denies swelling in legs. He denies chest pain, sob, fever and chills. He has history of IVC stenosis. He is most recently s/p right leg shuntogram with angioplasty of right iliac vein on 03/31/19. He is s/p right leg shuntogram with angioplasty of right iliac vein and inferior vena cava on 03/08/19. He notes he was admitted to [facility] 03/15/19 for stabbing abdominal pain and Ct scan showed partial bowel obstruction. The bowel obstruction was treated with NG tube, iv fluids and pain management. He has ESRD and does home dialysis. He alternates between left arm fistula and right leg bovine carotid artery artery. PREVIOUS DIAGNOSTICS: 03/07/19 IMPRESSIONS: Patient has history of right lower extremity superficial femoral arter to femoral vein AV-graft with thrombectomy and angioplasty 09/30/2018. Duplex imaging of the right lower extremity AV-graft was performed and appears widely patent with slightly increased velocities at the arterial anastomosis level. Velocities are as follows: Inflow Artery: cm/s [employer]:142/66 SFA prox: 210/118 prox-mid:227/146 Arterial anastomosis: 499/227* [...] 1985 & 1994 ALSO EXPLANTED- PARATHYROIDECTOMY 2002 NE INTRO AV SHUNT Right 02/06/2015 Procedure: Shuntogram RIGHT lower extremity with balloon angioplasty RIGHT iliac vein, RIGHT venogram; Surgeon: Zakiya Ernandez MD; Location: [facility] MAIN OR NE INTRO AV SHUNT N/A 04/19/2015 Procedure: RIGHT LOWER EXTREMITY SHUNTOGRAM WITH VENOGRAM,ANGIOPLASTY; Surgeon : Zakiya Ernandez MD; Location: [facility] MAIN OR NE INTRO AV SHUNT Right 05/20/2015 Procedure: RIGHT LOWER EXTREMITY SHUNTOGRAM WITH VENOGRAM AND ANGIOPLASTY; Surgeon: Zakiya Ernandez MD; Location: [facility] MAIN OR NE INTRO AV SHUNT Left 08/29/2015 Procedure: PERCUTANEOUS THROMBECTOMY OF LEFT UPPER ARM SHUNT WITH BALLOON ANGIOPLASTY; Surgeon: Milana Valadez MD; Location: [facility] MAIN OR NE VENOUS ANGIOPLASTY 7.3.12 left subclavian NE ANGIO AV SHUNT COMPLETE EVAL Right 01/29/2017 Procedure: FISTULOGRAM AV right leg shuntogram with angioplasty ; Surgeon: Kalpana Caban MD; Location: [facility] MAIN OR NE APPENDECTOMY NE CREAT AV FISTULA,AUTOGENOUS GRAFT NE INTRO CATH DIALYSIS CIRCUIT DX ANGRPH FLUOR S&I Right 01/05/2018 Procedure: RIGHT LEG SHUNTOGRAM WITH BALLOON ANGIOPLASTY; Surgeon: Zakiya Ernandez MD; Location: [facility] MAIN OR NE INTRO CATH DIALYSIS CIRCUIT W/TRLUML BALO ANGIOP Right 06/09/2017 Procedure: Fistulogram RIGHT leg with balloon angioplasty and inferior vena cavagram.; Surgeon: Zakiya Ernandez MD; Location: [facility] MAIN OR NE THROMBECTOMY A-V GRAFT, EXC HEMODIALYSIS Right 01/21/2018 Procedure: right leg shuntofram with thromolysis, thrombectomy; Surgeon: Zakiya Ernandez MD; Location: [facility] MA[facility] Current Outpatient Medications Medication Sig [...] ONE TIME for 1 dose. Take 1 hour prior to procedure EPINEPHrine (EPIPEN IJ) [...] Powder Take 15 g by mouth NEEDED. No current facility-administered medications for this visit. Allergies Allergen Reactions Wasp Venom [Phenol-Wasp Venom Protein] Respiratory Reaction Also caused hives, hypertension Ancef [Cefazolin Sodium] Hives Iv Dye [Ct Dye] Anaphylaxis Keflex Hives Vancomycin Other nadya syndrome Review of Systems - Negative except as stated in the hpi all other pertinent systems are negative Objective PHYSICAL EXAMINATION: VITALS: BP 128/58 (BP Location: Right arm, Patient Position: Sitting) | Pulse 78 | Ht 5' 2" (1.575 m) | Wt 149 lb 14.6 oz (68 kg) | BMI 27.42 kg/m GENERAL: awake, alert, oriented. HEART: regular rate and rhythm LUNGS: clear to auscultation bilaterally EXTREMITIES: arteriovenous graft right leg with good bruit and thrill and left arm arteriovenous fistula with good thrill and bruit. Bilateral lower extremities with very mild edema. DIAGNOSTICS: 06/23/19 IMPRESSIONS: Indication: Left arm numbness. [...] since the previous exam completed on 03/07/19. Plan IMPRESSION AND PLAN: ICD-9-CM ICD-10-CM 1. AV graft stenosis, sequela 909.3 T82.858S CASE REQUEST OPERATING ROOM 2. End stage renal disease (HCC) 585.6 N18.6 VL LOWER EXTREMITY DUPLEX ARTERIES RIGHT 3. Allergy to IVP dye, sequela 909.5 T50.995S diphenhydrAMINE (BENADRYL) 50 MG Oral Cap predniSONE (DELTASONE) 50 MG Oral Tab Oscar Peacock has ESRD with hemodialysis through right leg bovine carotid artery graft placed 3 1/2 year ago. Left hand numbness not from arterial steal, hand is well perfused. No other problems with arm graft at this time. Will continue observation. Currently with high arterial pressures via right leg graft. Duplex showed graft patent with no narrowing or increased velocities but we cannot see areas of stenosis that may be higher up. I discussed proceeding with right leg shuntogram and pelvic and inferior vena cava venogram with possible angioplasty stenting. He previously had stenosis of the iliac veins as well as inferior vena cava from previously placed catheters which are not detectable or visualized on the duplex ultrasound only venogram will show if there any areas of stenosis or not which would need to be intervened on. The risks, options and benefits were discussed to include but not limited to bleeding, infection, injury to blood vessel or graft, occlusion of graft, reaction to medications or anesthesia. He verbalized understanding. He has ct dye allergy so we will premedicate per protocol with prednisone and benadryl. The patient will be scheduled for surgery. Discussed with Dr. Ernandez who agrees with assessment and plan. Patient Instructions 06/23/2019 Date of Surgery: 06/30/19 Procedure: right leg shuntogram, central venogram, possible angioplasty/stenting Your Surgeon: Dr. Ernandez One day before surgery: 06/29/19 Nothing to eat or drink after midnight Continue taking all medications by mouth Shower with Endur soap in the evening Day of surgery: 06/30/19 Nothing to eat or drink Take all of your blood pressure and cardiac medications you normally take in the morning with a sip of water If taking insulin take half of your long-acting (NPH) and do not take your regular insulin Come to Ambulatory Surgery Waiting Area on the 4th floor of the [facility] at the indicated time: 0630 YOU MUST HAVE A CATALYST OPERATOR CHIEF TO DRIVE YOU HOME AFTER THE PROCEDURE Preadmission services will call you to review insurance and nursing history. If you are not contacted by the day prior to your surgery, please contact them at [phone]. Please expect a 1-2 hour wait in prep and recovery prior to your surgery or procedure. The doctor will see your family after the procedure. If any questions call our office at [phone] or [phone] Author: ISAURO Acevedo 06/23/2019 16:17 documented in this encounter Plan of Treatment Date Type Specialty Care Team Description 08/07/2019 Office Visit Gastroenterology Mert Watson MD [address] [place] [address] Name Type Priority Associated Diagnoses Date/Time VL LOWER EXTREMITY Imaging Routine End stage renal disease 06/23/2019 12: 24 PM DUPLEX ARTERIES RIGHT (HCC) EDT Name Type Priority Associated Diagnoses Order Schedule CASE REQUEST OPERATING Procedures Routine AV graft stenosis, Ordered: 06/23 ROOM [facility] Health Maintenance Due Date Last Done Comments MEDICARE ANNUAL WELLNESS VISIT 1985 MENINGOCOCCAL VACCINE IMM (1 - 1987 Risk 2-dose series) PNEUMOCOCCAL 0-64 YRS (1 of 3 - 1991 PCV13) DEPRESSION SCREENING 1997 INFLUENZA VACCINE (#1) 2019 07/26/2018 HPV IMMUNIZATION SERIES Aged Out No longer eligible based on patient's age to complete this topic documented as of this encounter Implants Implanted Type Area Radiologic Technology Instructor Device Shelf Model / Identifier Expiration Serial / Lot Date [place] Graft Regular Wall 6x40 - [id number] Left: Arm [employer] [id number] / Implanted: Qty: 1 on 03/10/2012 at [facility] / [id number] Propaten Graft Right: Meg RIOS [id number] / Implanted: Qty: 1 on 12/13/2012 at [facility] / [id number] Description:[id number] Artegraft Collagen Vascular Graft Right: Leg 02/26/2018 [id number] / Implanted: Qty: 1 on 08/26/2015 by Zakiya Ernandez MD at [facility] / [id number] Description:[id number] documented as of this encounter Results Not on filedocumented in this encounter Visit Diagnoses Diagnosis AV graft stenosis, sequela - Primary End stage renal disease (HCC) End stage renal disease Allergy to IVP dye, sequela documented in this encounter Insurance Payer Benefit Plan / Subscriber ID Effective Dates Phone Address Type Group MEDICARE MEDICARE PART A xxxxxxxxxxx 1986-Present Medicare & B MEDICAID [facility] xxxxxxxx 2016-Present Medicaid [place] MEDICAID documented as of this encounter Advance Directives Code Status Date Activated Date Inactivated Comments Full Code 05/25/2019 3:43 AM Does the patient have decision making capacity? Yes Order was discussed with: Patient I discussed all options and patient/surrogate requested and agreed to: Full Code
[2019-07-20 22:23] LABS: ABS Eosinophils 0.2 10^3/ul (0-0.6); ABS Lymphocytes 0.7 10^3/ul (1.0-4.8); ABS Monocytes 0.5 10^3/ul (0-0.8); ABS Neutrophils 2.7 10^3/ul (1.5-7.7); Eosinophil % 4.6 %; Hematocrit 28 % (42-52); Hemoglobin 9.8 g/dL (14.0-18.0); Lymphocyte % 16.5 %; Mean Corpuscular HGB Conc 35 g/dL (31-36); Mean Corpuscular Hemoglobin 34 pg (27-31); Mean Corpuscular Volume 97 fL (80-94); Mean Platelet Volume 7.9 fL (7.4-10.4); Platelet Count 219 10^3/uL (150-450); Red Blood Count 2.91 10^6 /uL (4.18-5.48); Red Cell Distribution Width 18 % (10-15); White Blood Count 4.2 10^3/uL (3.5-10.8)
[2019-07-20 22:28] LABS: INR 1.15 (0.82-1.09)
[2019-07-20 22:48] LABS: Albumin 4.4 g/dL (3.2-5.2); Albumin/Globulin Ratio 1.2 (1-3); C Reactive Protein 109.98 mg/L (<8.01); Calcium 7.9 mg/dL (8.6-10.3); EGFR Non-African American 3.3 (>60); Globulin 3.7 g/dL (2-4); Potassium 4.4 mmol/L (3.5-5.0); Total Bilirubin 0.4 mg/dL (0.2-1.0); Total Protein 8.1 g/dL (6.4-8.9)
[2019-07-20] MEDS: Pantoprazole TAB * 40 MG TAB PO ONE (22:49)
--- NOTE | 2019-07-20 23:26 | ED ---
Abdominal Pain/Male - HPI Summary HPI Summary: 33-year-old male with history of end-stage renal disease presents with 4 day history of abdominal pain, nausea, vomiting, and dark black stools. Patient states he is having constant upper abdominal pain that waxes and wanes in intensity ranging from a 3/10 to an 8/10. Describes as sharp. Nonradiating. No alleviating or aggravating factors. Patient states that since the onset of abdominal pain he has been having frequent formed stools that he describes as being "black and tarry" in color. Vomiting started yesterday with 2 episodes during the day. States he has had a total of 3 episodes today with the last episode being around 3:30 PM. States he thinks he is seen some coffee-ground emesis although the last time he vomited it was completely clear. Patient is on warfarin. History of small bowel obstruction. Denies fever, chills, lightheadedness, dizziness, chest pain, palpitations, shortness of breath, dysuria, frequency, urgency, or hematuria. - History of Current Complaint Chief Complaint: EDAbdPain Stated Complaint: VOMITTING,ABDOMINAL PAIN PER FIANCE Time Seen by Provider: 07/20/19 21:24 Hx Obtained From: Patient Pain Intensity: 8 - Allergies/Home Medications Allergies/Adverse Reactions: Allergies Allergy/AdvReac Type Severity Reaction Status Date / Time Iodinated Contrast Media Allergy Severe Anaphylatic Verified 07/20/19 19:07 [Iodinated Contrast- Oral Shock and IV Dye] vancomycin Allergy Severe Red man Verified 07/20/19 19:07 syndrome bee venom protein (honey bee) Allergy Anaphylatic Verified 07/20/19 19:07 Shock cefazolin [From Ancef] Allergy Hives Verified 07/20/19 19:07 cephalexin [From Keflex] Allergy Hives Verified 07/20/19 19:07 Penicillins Allergy Hives Verified 07/20/19 19:07 Home Medications: Home Medications Metoclopramide HCl 1 tab BID 07/20/19 [History Confirmed 07/20/19] Warfarin Sodium 1 tab PO DAILY 07/20/19 [History Confirmed 07/20/19] PMH/Surg Hx/FS Hx/Imm Hx Endocrine/Hematology History: Reports: Hx Anticoagulant Therapy - HEPARIN DURING DIALYSIS, Hx Thyroid Disease - PARTIAL PARATHYROIDECTOMY Denies: Hx Diabetes Cardiovascular History: Reports: Hx Angina, Hx Hypertension, Other Cardiovascular Problems/Disorders - Pericarditis Denies: Hx Coronary Artery Disease, Hx Hypercholesterolemia, Hx Myocardial Infarction, Hx Pacemaker/ICD, Hx Peripheral Vascular Disease, Hx Valvular Heart Disease Respiratory History: Denies: Hx Asthma, Hx Chronic Obstructive Pulmonary Disease (COPD) GI History: Reports: Hx Obstructive Bowel History: Reports: Hx Chronic Renal Failure - hemodialysis 4x/week at home, Hx Renal Disease - dialysis tues, thurs, sat Musculoskeletal History: Denies: Hx Arthritis, Hx Osteoporosis Sensory History: Denies: Hx Contacts or Glasses, Hx Hearing Aid Opthamlomology History: Denies: Hx Contacts or Glasses Neurological History: Denies: Hx Dementia, Hx Headaches, Hx Seizures, Hx Transient Ischemic Attacks (TIA) Psychiatric History: Denies: Hx Anxiety, Hx Depression, Hx Panic Disorder, Hx Substance Abuse - Surgical History Surgery Procedure, Year, and Place: PARTIAL PARATHYROIDECTOMY, L ARM GRAFT, R LEG GRAFT, HEMODYALISIS CATHETER PLACEMENT, KIDNEY TRANSPLANT X2, APPENDECTOMY, bilat illiac graft 02/2019 - Immunization History Date of Tetanus Vaccine: Date of Influenza Vaccine: 05/2019 Immunizations Up to Date: Yes Infectious Disease History: No Infectious Disease History: Denies: Hx Hepatitis, Hx Human Immunodeficiency Virus (HIV), Hx of Known/ Suspected MRSA, Traveled Outside the [place] in Last 30 Days - Family History Known Family History: Positive: Hypertension, Diabetes Negative: Cardiac Disease - Social History Occupation: Disabled Lives: With Family Alcohol Use: None Hx Substance Use: No Substance Use Type: Reports: None Hx Tobacco Use: Yes Smoking Status (MU): Former Smoker Type: Cigarettes Amount Used/How Often: 1 pack lasted 4 days Length of Time of Smoking/Using Tobacco: 12 years Have You Smoked in the Last Year: No Review of Systems Negative: Fever, Chills ENT: Negative Negative: Palpitations, Chest Pain Negative: Shortness Of Breath, Cough Positive: Abdominal Pain, Vomiting, Nausea, Other - Melena. Negative: Diarrhea Positive: no symptoms reported Musculoskeletal: Negative Skin: Negative Neurological: Negative All Other Systems Reviewed And Are Negative: Yes Physical Exam Triage Information Reviewed: Yes Vital Signs On Initial Exam: Initial Vitals Temp Pulse Resp BP Pulse Ox 97.4 F 97 18 150/87 100 07/20/19 19:01 07/20/19 19:01 07/20/19 19:01 07/20/19 19:01 07/20/19 19:01 Vital Signs Reviewed: Yes Diagnostics - Vital Signs Vital Signs Temp Pulse Resp BP Pulse Ox 07/20/19 19:01 97.4 F 97 18 150/87 100 - Laboratory Lab Results: Lab Results 07/20/19 07/20/19 07/20/19 Range/Units 22:18 22:18 22:18 WBC 4.2 (3.5-10.8) 10^3/uL RBC 2.91 L (4.18-5.48) 10^6 /uL Hgb 9.8 L (14.0-18.0) g/dL Hct 28 L (42-52) % MCV 97 H (80-94) fL MCH 34 H (27-31) pg MCHC 35 (31-36) g/dL RDW 18 H (10-15) % Plt Count 219 (150-450) 10^3/uL MPV 7.9 (7.4-10.4) fL Neut % (Auto) 65.1 % Lymph % (Auto) 16.5 % [place] % (Auto) 12.9 % Eos % (Auto) 4.6 % Baso % (Auto) 0.9 % Absolute Neuts (auto) 2.7 (1.5-7.7) 10^3/ul Absolute Lymphs (auto) 0.7 L (1.0-4.8) 10^3/ul Absolute Monos (auto) 0.5 (0-0.8) 10^3/ul Absolute Eos (auto) 0.2 (0-0.6) 10^3/ul Absolute Basos (auto) 0.0 (0-0.2) 10^3/ul Absolute Nucleated RBC 0.0 10^3/ul Nucleated RBC % 0.0 INR (Anticoag Therapy) 1.15 H (0.82-1.09) Sodium 136 (135-145) mmol/L Potassium 4.4 (3.5-5.0) mmol/L Chloride 94 L (101-111) mmol/L Carbon Dioxide 26 (22-32) mmol/L Anion Gap 16 H (2-11) mmol/L BUN 85 H (6-24) mg/dL Creatinine 16.96 H (0.67-1.17) mg/dL Est GFR ( Amer) 4.0 (>60) Est GFR (Non-Af Amer) 3.3 (>60) BUN/Creatinine Ratio 5.0 L (8-20) Glucose 95 (70-100) mg/dL Calcium 7.9 L (8.6-10.3) mg/dL Total Bilirubin 0.40 (0.2-1.0) mg/dL AST 13 (13-39) U/L ALT 10 (7-52) U/L Alkaline Phosphatase 68 (34-104) U/L C-Reactive Protein 109.98 H (<8.01) mg/L Total Protein 8.1 (6.4-8.9) g/dL Albumin 4.4 (3.2-5.2) g/dL Globulin 3.7 (2-4) g/dL Albumin/Globulin Ratio 1.2 (1-3) Lipase 37 (11.0-82.0) U/L Result Diagrams: 07/20/19 22:18 07/20/19 22:18 Lab Statement: Any lab studies that have been ordered have been reviewed, and results considered in the medical decision making process. - CT No standard instances CT Interpretation Completed By: Radiologist Summary of CT Findings: Exam: CT Abdomen And Pelvis Without Contrast. Exam date and time: 07/20/2019 10:22 PM. Age: 33 years old. Clinical history: Abdominal pain; Generalized; Additional info: Ruq luq pain, tarry stools, HX sbo. TECHNIQUE: Imaging protocol: Computed tomography of the abdomen and pelvis without contrast. Radiation optimization: All CT scans at this facility use at least one of these dose optimization techniques: automated exposure control; mA and/or kV adjustment per patient size (includes targeted exams where dose is matched to clinical indication); or iterative reconstruction. COMPARISON: A/P WO CT ABD/PEL W/O 04/30/2019 6:38 PM. FINDINGS: Lungs: There is bibasilar atelectatic change or scarring. Liver: Normal. No mass. Gallbladder and bile ducts: Normal. No calcified stones. No ductal dilation. Pancreas: Normal. No ductal dilation. Spleen: Normal. No splenomegaly. Adrenals: Normal. No mass. Kidneys and ureters: Stable severe bilateral renal atrophy or hypoplasia. Stomach and bowel: Stable colonic diverticulosis without evidence for acute diverticulitis. Appendix: No evidence of appendicitis. Intraperitoneal space: Unremarkable. No free air. No significant fluid collection. Retroperitoneal space: Stable dilated collateral veins in the retrocrural region and extending into the retroperitoneum of the abdomen and pelvis. Stable additional dilated collateral veins in the subcutaneous fat layer of the right chest and right abdomen and pelvis. Vasculature: Unremarkable. No abdominal aortic aneurysm. Lymph nodes: Unremarkable. No enlarged lymph nodes. Bladder: Stable small possible scarred appearance of the urinary bladder with no urine volume. Reproductive: Unremarkable as visualized. Bones/joints: Unremarkable. No acute fracture. Soft tissues: Stable vascular grafts of the left inguinal region and anterior left thigh. Stable scarring in the umbilical region. IMPRESSION: 1. Stable dilated collateral veins in the retrocrural region and extending into the retroperitoneum of the abdomen and pelvis. Stable additional dilated collateral veins in the subcutaneous fat layer of the right chest and right abdomen and pelvis. 2. Stable colonic diverticulosis without evidence for acute diverticulitis. Abdominal Pain Male Course/Dx - Course Course Of Treatment: 33-year-old male with history of end-stage renal disease presents with 4 day history of abdominal pain, nausea, vomiting, and dark black stools. Patient states he is having constant upper abdominal pain that waxes and wanes in intensity ranging from a 3/10 to an 8/10. Describes as sharp. Nonradiating. No alleviating or aggravating factors. Patient states that since the onset of abdominal pain he has been having frequent formed stools that he describes as being "black and tarry" in color. Vomiting started yesterday with 2 episodes during the day. States he has had a total of 3 episodes today with the last episode being around 3:30 PM. States he thinks he is seen some coffee-ground emesis although the last time he vomited it was completely clear. Patient is on warfarin. History of small bowel obstruction. Denies fever, chills, lightheadedness, dizziness, chest pain, palpitations, shortness of breath, dysuria, frequency, urgency, or hematuria. Stable dilated collateral veins in the retrocrural region and extending into the retroperitoneum of the abdomen and pelvis. Afebrile. Vital signs stable. On exam patient had tenderness across the right upper quadrant, left upper quadrant and epigastric area. No rebound or tenderness. No CVA tenderness. Rectal exam was normal and patient had soft brown stool in the rectal vault. Patient was given a dose of pantoprazole 40 mg PO. Labs showed patient to be anemic with a red blood cell count of 2.91, hemoglobin of 9.8, hematocrit of 28 however this was stable when compared to his previous labs on 04/30/2019 and 2018. His INR was 1.15, BNP 185, and creatinine 16.96 which were also stable when compared to previous studies. He did have an elevated CRP of 109.98. Test for his stool occult blood was negative. A noncontrasted CT of the abdomen and pelvis was obtained as the patient has a reported allergy to contrast dye which showed stable dilated collateral veins in the subcutaneous fat layer of the right chest and right abdomen and pelvis and stable colonic diverticulosis without evidence for acute diverticulitis. Results were reviewed with the patient and we discussed that based on these findings I have a very low suspicion for an acute GI bleed and am recommending conservative treatment for acute abdominal pain with nausea and vomiting. He was provided with a prescription for ondansetron 4 mg every 6 hours as needed for nausea and vomiting. He is to follow-up with his primary care provider - Diagnoses Differential Diagnosis/HQI/PQRI: Bowel Obstruction, Constipation, Diverticulitis , Gall Bladder Disease, Pancreatitis Provider Diagnoses: RUQ abdominal pain, LUQ abdominal pain, Vomiting Discharge ED - Sign-Out/Discharge Documenting (check all that apply): Patient Departure - Discharge Plan Condition: Stable Disposition: HOME Prescriptions: Ondansetron [Ondansetron Odt] 4 mg PO Q6HR PRN #6 tab.rapdis PRN Reason: Nausea/Vomiting Patient Education Materials: Acute Nausea and Vomiting (ED), Acute Abdominal Pain (ED) Referrals: Alyson Hameed MD [Primary Care Provider] - 3 Days (Follow up within 3 days. Call tomorrow for appointment.) Additional Instructions: The lab work performed in the emergency room today was stable when compared to your previous lab work. The test for what in your stool was negative. Her CT scan showed some diverticulosis without evidence of diverticulitis. Take ondansetron 4 mg 1 tablet every 6 hours as needed for nausea or vomiting. Follow-up with your primary care provider within 3 days for recheck of symptoms. Return here if you develop fever greater than 100.5 F, have worsening abdominal pain, persistent vomiting, become weak or dizzy, or have any worsening of symptoms. - [place] Disposition and Condition Condition: STABLE Disposition: Home
[2019-07-21 00:15] VITALS: BP 126/83
== END 2019-07-21 00:10 | disposition home or self-care (01) ==
LOC: ED 18:52
DX: R10.11 Right upper quadrant pain (principal); R10.12 Left upper quadrant pain; R11.10 Vomiting, unspecified; K57.30 Diverticulosis of large intestine without perforation or abscess without bleeding; I12.0 Hypertensive chronic kidney disease with stage 5 chronic kidney disease or end stage renal disease; N18.6 End stage renal disease; Z87.891 Personal history of nicotine dependence; Z99.2 Dependence on renal dialysis; Z94.0 Kidney transplant status; Z90.89 Acquired absence of other organs; Z79.01 Long term (current) use of anticoagulants; Z79.899 Other long term (current) drug therapy; Z88.0 Allergy status to penicillin; Z88.1 Allergy status to other antibiotic agents; Z91.041 Radiographic dye allergy status
CPT/HCPCS: 36415; 74176; 80053; 82272; 83690; 85025; 85610; 86140; 99283; A9270-GY

== ENCOUNTER 2019-08-21 17:27 | Emergency (ER) | payer MEDICARE, MEDICAID ==
--- NOTE | 2019-08-21 18:31 | ED ---
HPI Chest Pain - HPI Summary HPI Summary: Patient currently on dialysis complains of exertional SOB, intermittent left neck pain dating to left anterior chest 2 days, night sweats 1 week and chronic ongoing insomnia. Denies trauma, fever, cough, sore throat, N/3/D, abdominal pain, change in urine, change in BM. Last dialysis yesterday. PCP Dr. Hameed. States currently establishing care with extension course coordinator Dr. Lamb. - History of Current Complaint Chief Complaint: EDChestPainROMI Time Seen by Provider: 08/21/19 18:24 Hx Obtained From: Patient Onset/Duration: Started Days Ago Timing: Intermittent Initial Severity: Moderate Current Severity: Moderate Pain Intensity: 5 Pain Scale Used: 0-10 Numeric Chest Pain Location: Left Anterior Chest Pain Radiates To:: Neck Character: Dull/Aching Aggravating Factor(s): Deep Breaths Alleviating Factor(s): Nothing Associated Signs and Symptoms: Positive: Chest Pain, Shortness of Breath - Additional Pertinent History Primary Care Physician: AMY - Allergy/Home Medications Allergies/Adverse Reactions: Allergies Allergy/AdvReac Type Severity Reaction Status Date / Time Iodinated Contrast Media Allergy Severe Anaphylatic Verified 08/21/19 17:45 [Iodinated Contrast- Oral Shock and IV Dye] vancomycin Allergy Severe Red man Verified 08/21/19 17:45 syndrome bee venom protein (honey bee) Allergy Anaphylatic Verified 08/21/19 17:45 Shock cefazolin [From Ancef] Allergy Hives Verified 08/21/19 17:45 cephalexin [From Keflex] Allergy Hives Verified 08/21/19 17:45 Penicillins Allergy Hives Verified 08/21/19 17:45 Home Medications: Home Medications Gabapentin CAP(*) [Neurontin 100 mg CAP(*)] 100 mg PO TID 08/21/19 [History Confirmed 08/21/19] Metoclopramide TAB* [Reglan TAB*] 5 mg PO BID 08/21/19 [History Confirmed ] Warfarin TAB(*) [Coumadin TAB(*)] 2 mg PO DAILY 08/21/19 [History Confirmed ] PMH/Surg Hx/FS Hx/Imm Hx Endocrine/Hematology History: Reports: Hx Anticoagulant Therapy - HEPARIN DURING DIALYSIS, Hx Thyroid Disease - PARTIAL PARATHYROIDECTOMY Denies: Hx Diabetes Cardiovascular History: Reports: Hx Angina, Hx Hypertension, Other Cardiovascular Problems/Disorders - Pericarditis Denies: Hx Coronary Artery Disease, Hx Hypercholesterolemia, Hx Myocardial Infarction, Hx Pacemaker/ICD, Hx Peripheral Vascular Disease, Hx Valvular Heart Disease Respiratory History: Denies: Hx Asthma, Hx Chronic Obstructive Pulmonary Disease (COPD) GI History: Reports: Hx Obstructive Bowel History: Reports: Hx Chronic Renal Failure - hemodialysis 4x/week at home, Hx Renal Disease - dialysis tues, th, sat Musculoskeletal History: Denies: Hx Arthritis, Hx Osteoporosis Sensory History: Denies: Hx Contacts or Glasses, Hx Hearing Aid Opthamlomology History: Denies: Hx Contacts or Glasses Neurological History: Denies: Hx Dementia, Hx Headaches, Hx Seizures, Hx Transient Ischemic Attacks (TIA) Psychiatric History: Denies: Hx Anxiety, Hx Depression, Hx Panic Disorder, Hx Substance Abuse - Surgical History Surgery Procedure, Year, and Place: PARTIAL PARATHYROIDECTOMY, L ARM GRAFT, R LEG GRAFT, HEMODYALISIS CATHETER PLACEMENT, KIDNEY TRANSPLANT X2, APPENDECTOMY, bilat illiac graft 02/2019 - Immunization History Date of Tetanus Vaccine: Date of Influenza Vaccine: 05/2019 Infectious Disease History: No Infectious Disease History: Denies: Hx Hepatitis, Hx Human Immunodeficiency Virus (HIV), Hx of Known/ Suspected MRSA, Traveled Outside the [place] in Last 30 Days - Family History Known Family History: Positive: Hypertension, Diabetes Negative: Cardiac Disease - Social History Alcohol Use: None Hx Substance Use: No Substance Use Type: Reports: None Hx Tobacco Use: Yes Smoking Status (MU): Former Smoker Type: Cigarettes Amount Used/How Often: 1 pack lasted 4 days Length of Time of Smoking/Using Tobacco: 12 years Have You Smoked in the Last Year: No Review of Systems Positive: Fatigue Eyes: Negative ENT: Negative Positive: Chest Pain Positive: Shortness Of Breath Gastrointestinal: Negative Genitourinary: Negative Musculoskeletal: Negative Skin: Negative Neurological: Negative Psychological: Normal All Other Systems Reviewed And Are Negative: Yes Physical Exam - Summary Physical Exam Summary: Neck pain reproducible. Left anterior chest pain tender to palpation. Lung sounds clear to auscultation bilaterally. Abdomen soft nontender. No peripheral lower extremity edema. Triage Information Reviewed: Yes Vital Signs On Initial Exam: Initial Vitals Temp Pulse Resp BP Pulse Ox 98.5 F 101 18 155/93 100 08/21/19 17:41 08/21/19 17:41 08/21/19 17:41 08/21/19 17:41 08/21/19 17:41 Vital Signs Reviewed: Yes Appearance: Positive: Well-Appearing Skin: Positive: Warm Head/Face: Positive: Normal Head/Face Inspection Eyes: Positive: Normal Neck: Positive: Supple Respiratory/Lung Sounds: Positive: Clear to Auscultation Cardiovascular: Positive: Normal Abdomen Description: Positive: Nontender Musculoskeletal: Positive: Normal Neurological: Positive: Normal Psychiatric: Positive: Normal AVPU Assessment: Alert - [place] Coma Scale Best Eye Response: 4 - Spontaneous Best Motor Response: 6 - Obeys Commands Best Verbal Response: 5 - Oriented Coma Scale Total: 15 Procedures - Sedation Patient Received Moderate/Deep Sedation with Procedure: No Diagnostics - Vital Signs Vital Signs Temp Pulse Resp BP Pulse Ox 08/21/19 17:41 98.5 F 101 18 155/93 100 - Laboratory Result Diagrams: 08/21/19 19:13 08/21/19 19:13 Lab Statement: Any lab studies that have been ordered have been reviewed, and results considered in the medical decision making process. Chest Pain Course/Dx - Course Course Of Treatment: Patient currently on dialysis complains of exertional SOB, intermittent left neck pain dating to left anterior chest 2 days, night sweats 1 week and chronic ongoing insomnia. Denies trauma, fever, cough, sore throat , N/3/D, abdominal pain, change in urine, change in BM. Last dialysis yesterday. PCP Dr. Hameed. States no current extension course coordinator. Vital signs within normal limits. Hemoglobin 10.1. BUN 36. Creatinine 10.78. BMP 143. Labs at patient baseline. EKG sinus rhythm with heart rate of 99, normal P axis. Chest x-ray positive for mild pulmonary edema. Discussed patient with attending Dr. Gee who agreed patient to be discharged home to follow-up with primary care extension course coordinator. - Diagnoses Provider Diagnoses: Neck pain, SOB (shortness of breath), Chest wall pain Discharge ED - Sign-Out/Discharge Documenting (check all that apply): Patient Departure - Discharge Plan Condition: Stable Disposition: HOME Prescriptions: predniSONE TAB* [Deltasone 20 MG TAB*] 40 mg PO DAILY 5 Days #10 tab Patient Education Materials: Chest Wall Pain (ED), Shortness of Breath (ED) Referrals: Alyson Hameed MD [Primary Care Provider] - Additional Instructions: Follow-up with primary care and your nephrologoist. Return to the ED for any new or worsening symptoms. - Billing Disposition and Condition Condition: STABLE Disposition: Home
[2019-08-21 19:23] LABS: ABS Eosinophils 0.1 10^3/ul (0-0.6); ABS Lymphocytes 0.8 10^3/ul (1.0-4.8); ABS Monocytes 0.5 10^3/ul (0-0.8); ABS Neutrophils 4.1 10^3/ul (1.5-7.7); Eosinophil % 2.6 %; Hematocrit 30 % (42-52); Hemoglobin 10.1 g/dL (14.0-18.0); Lymphocyte % 13.6 %; Mean Corpuscular HGB Conc 33 g/dL (31-36); Mean Corpuscular Hemoglobin 33 pg (27-31); Mean Corpuscular Volume 98 fL (80-94); Platelet Count 195 10^3/uL (150-450); Red Blood Count 3.09 10^6 /uL (4.18-5.48); Red Cell Distribution Width 20 % (10-15); White Blood Count 5.6 10^3/uL (3.5-10.8)
[2019-08-21 19:41] LABS: Albumin 4.7 g/dL (3.2-5.2); Albumin/Globulin Ratio 1.3 (1-3); BUN/Creatinine Ratio 3.3 (8-20); Calcium 8.4 mg/dL (8.6-10.3); EGFR African American 6.7 (>60); EGFR Non-African American 5.5 (>60); Globulin 3.6 g/dL (2-4); Total Bilirubin 0.6 mg/dL (0.2-1.0); Total Protein 8.3 g/dL (6.4-8.9)
[2019-08-21 19:42] LABS: Troponin I 0.01 ng/mL (<0.03)
[2019-08-21 19:51] LABS: Potassium 3.6 mmol/L (3.5-5.0)
[2019-08-21] MEDS ORDERED: oxyCODONE TAB* 5 MG TAB PO ONE (20:38)
[2019-08-21 21:59] VITALS: BP 140/100
== END 2019-08-21 22:07 | disposition home or self-care (01) ==
LOC: ED 17:27
DX: R06.02 Shortness of breath (principal); M54.2 Cervicalgia; R07.89 Other chest pain; E03.9 Hypothyroidism, unspecified; I12.0 Hypertensive chronic kidney disease with stage 5 chronic kidney disease or end stage renal disease; N18.6 End stage renal disease; Z87.891 Personal history of nicotine dependence; Z99.2 Dependence on renal dialysis; Z94.0 Kidney transplant status; Z90.89 Acquired absence of other organs; Z79.01 Long term (current) use of anticoagulants; Z79.899 Other long term (current) drug therapy; Z88.0 Allergy status to penicillin; Z88.1 Allergy status to other antibiotic agents; Z91.041 Radiographic dye allergy status
CPT/HCPCS: 36415; 71045; 80053; 83605; 83880; 84484; 85025; 93005; 99283; A9270-GY; J7512

== ENCOUNTER 2019-11-08 17:24 | Emergency (ER) | payer MEDICARE, MEDICAID ==
--- OUTSIDE RECORDS SUMMARY | 2019-11-08 17:47 | XMS REPORT | Summary of Care ---
:1985 Author Organization [facility] Address [address] [address] Care Team Providers Name Role Phone Shania Beyer Primary Care Provider Reason for Referral (Routine) Status Reason Specialty Diagnoses / Procedures Referred By Contact Referred To Contact Alcon Trinidad NP [address] [address] Scheduling Instructions Reason for Consult: ESRD on hemodialysis. Has not had dialysis in several days , now with some respiratory distress after anesthesia, thrombolysis of left AV shunt. Patient Background: Oscar Peacock is a 34-y.o. 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, right Inferior vena caval stenosis No components found for: CREATININE CLEARANCE Reason for Visit Auth/Cert Status Reason Specialty Diagnoses / Procedures Referred By Contact Referred To Contact Encounter Details Date Type Department Care Team Description 11/03/2019 Hospital Encounter [facility] [address] [place] Zakiya Ernandez Observation [address] [place] [address] [address] [phone] [address] [address] Allergies Active Allergy Reactions Severity Noted Date Comments Cefazolin Sodium Hives 02/15/2012 Ct Dye Anaphylaxis 02/15/2012 Keflex Hives 02/15/2012 Vancomycin Other 02/15/2012 nadya syndrome Phenol-Wasp Venom Respiratory Reaction High 05/22/2013 Also caused hives, Protein hypertension documented as of this encounter (statuses as of 11/04/2019) Medications Medication Sig Dispensed Refills Start End Status Date Date epoetin efraín 2,500 Inject beneath 0 Active unitsIndications: the skin. Every as directed Wednesday & Wed. Indications: as directed sodium polystyrene Take 15 g by 0 Active (KAYEXALATE) Oral mouth NEEDED. Powder Calcium Carbonate Take 640 mg by 0 Active (CALCIUM-CARB 600 mouth THREE TIMES PO) DAILY WITH MEALS. EPINEPHrine (EPIPEN by Injection 0 Active IJ) route DIRECTED. CALCITRIOL PO Take 2 mcg by 0 Active mouth DAILY. gabapentin Take 100 mg by 0 Active (NEURONTIN) 100 MG mouth THREE TIMES Oral Cap DAILY. warfarin (COUMADIN) Take 1 Tab by 30 Tab 0 Active 2 MG Oral mouth DAILY. 9 TabIndications: Thrombus lisinopril Take 20 mg by 0 Active (PRINIVIL, ZESTRIL) mouth DAILY. 20 MG Oral Tab metoclopramide Take 5 mg by 0 Active (REGLAN) 5 MG Oral mouth THREE TIMES Tab DAILY WITH MEALS. Omeprazole delayed Take 20 mg by 0 Active rel cap (PRILOSEC) mouth DAILY. 20 MG Oral CAPSULE DELAYED RELEASE Cholecalciferol 250 Take by mouth. 0 Active MCG (87418 UT) Oral Cap acetaminophen Take 2 Tabs by 120 Tab 0 Active (TYLENOL) 325 MG mouth EVERY EIGHT 0 Oral Tab HOURS NEEDED (Pain). diphenhydrAMINE Take 1 Cap by 1 Cap 0 Active (BENADRYL) 50 MG mouth DIRECTED 0 Oral for 1 dose. Take CapIndications: 1 cap 1 hour Allergy to IVP dye, prior to subsequent procedure encounter OXYcodone Take 1 Tab by 10 Tab 0 Discontinued (OXY-IR,OXY-FAST) 5 mouth EVERY FOUR 9 020 (Error) MG Oral Tab HOURS NEEDED (Breakthrough). Max Daily Amount: 30 mg. HYDROcodone-acetami Take 1 Tab by 8 Tab 0 Discontinued nophen (NORCO) mouth EVERY SIX 0 020 (Error) 5-325 MG Oral Tab HOURS NEEDED (Pain. please do not exceed 4000 mg of acetaminophen per day). Max Daily Amount: 4 Tabs. predniSONE Take 1 Tab by 3 Tab 0 Discontinued (DELTASONE) 50 MG mouth DAILY. Take 0 020 (No longer Oral one tablet 13 clinically TabIndications: hours, 7 hours indicated) Allergy to IVP dye, and 1 hour prior subsequent to the procedure encounter documented as of this encounter (statuses as of 11/04/2019) Active Problems Problem Noted Date AV graft thrombosis, initial encounter 11/03/2019 AV graft stenosis, sequela 06/23/2019 Overview: Added automatically from request for surgery [id number] Sepsis due to cellulitis 05/29/2019 Iliac vein stenosis, left 03/31/2019 Stenosis of inferior vena cava 03/27/2019 Overview: Added automatically from request for surgery [id number] AV shunt thrombosis, subsequent encounter 09/27/2018 Overview: Added automatically from request for surgery [id number] AV shunt stenosis, subsequent encounter 09/06/2018 Overview: Added automatically from request for surgery [id number] Mechanical complication of arteriovenous surgical shunt 08/02/2018 Overview: Added automatically from request for surgery [id number] Cellulitis 05/24/2018 Overview: Cat scratch disease vs Cellulitis in setting of Fistula proximity No systemic signs of infection, no WBC elevation Patient may have received IV Clindamycin at [place] without benefit for one day IV Ciprofloxacin and IV Flagyl in ED, Change to IV Unasyn and IV Doxycycline Vascular consulted for fistula assessment and care Infectious disease consulted at this time Blood cultures pending AV graft thrombosis, subsequent encounter 01/17/2018 Overview: Added automatically from request for surgery [id number] Arteriovenous graft stenosis, sequela 12/14/2017 Overview: Added automatically from request for surgery [id number] Stage 4 chronic kidney disease 12/14/2017 Overview: Added automatically from request for surgery [id number] Inferior vena caval stenosis 10/07/2016 End stage renal disease 02/06/2015 Iliac vein stenosis, right 02/06/2015 penitentiary (current) use of anticoagulants 10/30/2013 History of [...] as of this encounter (statuses as of 11/04/2019) Resolved Problems Problem Noted Date Resolved Date Subclavian vein stenosis, 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 03/01/2012 Subclavian vein stenosis, 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 03/01/2012 documented as of this encounter (statuses as of 11/04/2019) Immunizations Name Administration Dates Next Due Influenza (IM) Preservative Free 07/26/2018 MMR VACCINE 01/23/2014 documented as of this encounter Social History Tobacco Use Types Packs/Day Years Used Date Former Smoker 0 Quit: 08/30/2010 Smokeless Tobacco: Never Used Alcohol Use Drinks/Week oz/Week Comments No Sex Assigned at Date Recorded Not on file documented as of this encounter Last Filed Vital Signs Vital Sign Reading Time Taken Comments Blood Pressure 120/73 11/03/2019 5:45 PM EST Pulse 99 11/03/2019 5:45 PM EST Temperature 36.9 11/03/2019 5:45 PM EST C (98.5 F) Respiratory Rate 14 11/03/2019 1:00 PM EST Oxygen Saturation 95% 11/03/2019 5:45 PM EST Inhaled Oxygen Concentration - - Weight 68 kg (150 lb) 11/03/2019 7:07 AM EST Height - - Body Mass Index 27.44 10/11/2019 9:23 AM EST documented in this encounter Discharge Summaries Zakiya Ernandez MD - 11/03/2019 11:10 AM ESTGUTHRIE SP/OP DISCHARGE NOTE [place] [id number] PATIENT: Oscar Peacock SURGEON: Primary: Zakiya Ernandez MD : 1985 DATE OF SURGERY: 11/03/2019 Procedure:Right leg dialysis AV graft thrombolysis, balloon angioplasty, shuntogram, venogram. Principle Diagnosis: Occluded right leg AV graft. Associated Condition(s): Same as pre-op, unless otherwise indicated Mental Status: Same as pre-op, unless otherwise indicated. Condition: Stable, unless otherwise indicated Disposition of Care: Discharge to home. Appointment with/ or Follow-up with Vascular in one week for stitches removal Author: Zakiya Ernandez MD 11/03/2019 documented in this encounter Discharge Instructions Fatoumata Ureña RN - 11/03/2019 Provider's Instructions Reason for Admission or Diagnosis:AV graft thrombosis, initial encounter ([facility]) Activity/Restrictions: activity as tolerated and no driving for today Skin/Wound Care: Keep wound clean and dry. Discharge Diet: Resume preoperative diet Special Instructions: Follow-up with Vascular in one week for stitches removal Discharge Provider: Zakiya Ernandez MD Attending: Zakiya Ernandez, * Time: 11:16 Nurse's Instructions Problems to report to your Physician: Excessive pain or discomfort Fever > 100.5 degrees Difficulty breathing Increase or smell in wound drainage Skin/Wound Care: Skin intact on discharge: None Medical Equipment/Supplies to help you at home: none Help arranged for you Home Health/Receiving Agency: N/A Patient Education Dialysis and Diet The Basics Written by the doctors and editors at [facility] Do people on dialysis need to watch their diet?Yes. Most people on dialysis need towatch what they eat and drink. Your doctor, nurse, or dietitian (food expert) will tell you if thereare foods or drinks that you should limit or avoid. The diet that is right for you will depend on: The type of dialysis you have ? There are 2 types of dialysis, called hemodialysis and peritoneal dialysis. People who get hemodialysis at a dialysis center (in a hospital or clinic) need towatch their diet the most. They need to limit or avoid more foods than those who do peritoneal dialysis, or hemodialysis at home. How often you have dialysis Your health and other medical conditions Why do people on dialysis need to watch their diet?People on dialysis need to watchtheir diet because their kidneys aren't working. Normally , the kidneys work to filter the blood. They remove excess water, salt, and other minerals and nutrients that people eat and drink. Dialysis is a treatment that takes over the job of the kidneys. But dialysis doesn't filter the blood as well as healthy kidneys do. Plus, normal kidneys work all day, every day. People usually have hemodialysis at a center only 3 times a week. So if a person on dialysis gets too much water, salt, or other nutrients through eating and drinking, these things can build up in the body. This can make people feel sick and cause problems. When you watch your diet, you can help make sure that: Too much fluid doesn't build up in your body between treatments ? Having too much fluid can raise your blood pressure, which makes the heart work harder. Extra fluid can also cause weight gain, swelling, or trouble breathing. Your body has the right amount of nutrients ? Some foods have high levels of certain nutrients. Eating those foods can raise the level of certain nutrients in your body between treatments. This can lead to problems. You stay as healthy as possible and don't gain too much weight What do I need to watch in my diet?You will probably need to watch: Fluids ? Most people on dialysis need to limit the fluids they eat and drink. Any food that is a liquid at room temperature (such as ice cream) is a fluid. Some fruits and vegetables have a lot of fluid in them, including melons, grapes, apples, and lettuce. Sodium ? This is the main ingredient in table salt. Most people on dialysis need to limitthe amount of sodium they eat. That's because eating a lot of sodium can raise your blood pressure. It can also make you thirsty and cause you to drink more than you should. To know how much sodium is in a food, you need to look at the food's label (figure 1). Try to eat foods that are normally low insodium or foods that say "sodium-free" or "very low in sodium" ( table 1). Potassium ? This is a nutrient that affects your heartbeat. Most people on dialysis need to limit the potassium they eat. If too much potassium builds up in your body, it can cause problems with your heart rhythm. Try to eat foods that are low in potassium (table 2). Foods that are high in potassium that you should avoid are listed in a different table (table 3). Phosphorus ? This is a nutrient found in many foods. Foods such as milk, other dairy foods, nuts, beans, liver, and chocolate have high levels of phosphorus. Most people on dialysis need to avoid foods with high levels of phosphorus. That's because if phosphorus builds up in your body, it can cause weak bones and other problems. Your doctor might also prescribe a medicine for you to take with your meals and snacks. This medicine can help keep your phosphorus level low. Protein ? Protein helps your muscles stay strong. Foods with a lot of protein include meat, chicken, fish, and eggs. People who do peritoneal dialysis might need extra protein, because the body loses protein with each peritoneal dialysis treatment. Your doctor will probably prescribe a vitamin for you to take every day. That way, your body can getthe vitamins and minerals that might be missing in your diet. What if I get thirsty?If you get thirsty but need to limit your fluids, try these tips: Suck on ice instead of having a drink, because ice lasts longer. (But remember that ice is alsoa fluid.) Chew gum or suck on hard candy. Eat low potassium fruit that is very cold, such as frozen grapes. Rinse your mouth out with water or mouthwash, but don't swallow. All topics are updated as new evidence becomes available and our peer review process is complete. This topic retrieved from [employer] on: Jul 04, 2019. Topic 80232 Version 8.0 Release: 27.4.5 - C27.318 ?2019?[employer]. and/or its affiliates.?All rights reserved. figure 1: Food labels can be tricky To figure out how much sodium you are eating, check the label to find out how much sodium is in one serving. If you are having more than one serving, multiply that amount by the number of servings you plan to eat. For instance, if you are going to eat this whole can of soup, you should multiply 850 by2. That means that you will be having 1700 milligrams of sodium. That's more sodium than many peopleare supposed to have in one day. Graphic 91830 Version 6.0 table 1: A guide to common nutrient claims and what they mean Salt/sodium free Less than 5 mg of sodium per serving Very low sodium 35 mg or less of sodium per serving Low sodium 140 mg or less of sodium per serving Reduced sodium At least 25% less sodium than the regular product Light or lite in sodium At least 50% less sodium than the regular product No salt added or unsalted No salt is added during processing, but these products may not be salt/sodium free unless stated Graphic 20790 Version 6.0 table 2: Some foods that are low in potassium Fruits Vegetables Proteins Apple juice [place] sprouts Almonds Apples and applesauce Asparagus Cashews Blackberries Cabbage (cooked) Chicken Blueberries Carrots (cooked) Eggs Cherries Cauliflower Flax seed Cranberries Celery Peanuts Grapefruit Prole Pumpkin seeds Grapes and grape juice [place] Shrimp Peaches Eggplant Gila seeds Pears Green beans Tuna Pineapple Green peas [place] Plums Green peppers Walnuts Raspberries Kale ? Strawberries Lettuce Watermelon Okra ? Onions Radish Rhubarb Spinach Water chestnuts Wax beans Yellow squash Zucchini Graphic 42884 Version 2.0 table 3: Some foods that are high in potassium Fruits Vegetables Proteins Other Avocado Artichokes Black beans Chocolate Bananas Baked beans Clams Dairy products Coconut Beets Ground beef Granola Cantaloupe and honeydew melons Broccoli Kidney beans Milk Dates [place] sprouts Lobster Peanut butter Dried fruits Cabbage (raw) [place] beans Soups that are salt-free or low-sodium Figs Carrots (raw) [place]well beans Soy milk Kiwi Chard [place] Sports drinks [place] Olives Sardines Tomato sauce Nectarines Potatoes (white and sweet) Scallops Wheat bran and bran products Oranges and orange juice Pickles Steak Whole-grain bread Prunes and prune juice Pumpkin Lebo Yogurt Raisins Rutabaga ? ? ? Squash (acorn, butternut, gil) Tomatoes and tomato juice Graphic 71159 Version 1.0 Consumer Information Use and Disclaimer This information is not specific medical advice and does not replace information you receive from your health care provider. This is only a brief summary of general information. It does NOT include allinformation about conditions, illnesses, injuries, tests, procedures, treatments, therapies, discharge instructions or life-style choices that may apply to you. You must talk with your health care provider for complete information about your health and treatment options. This information should not beused to decide whether or not to accept your health care provider's advice, instructions or recommendations. Only your health care provider has the knowledge and training to provide advice that is right for you.The use of UpToDate content is governed by the [employer] Terms of Use. 2019 [employer]. All rights reserved. Copyright ?2019?[employer]. and/or its affiliates.?All rights reserved. documented in this encounter Plan of Treatment Health Maintenance Due Date Last Done Comments MEDICARE ANNUAL WELLNESS VISIT 1985 MENINGOCOCCAL VACCINE IMM (1 - 1985 Risk start before 7 months 4-dose series) PNEUMOCOCCAL 0-64 YRS (1 of 3 - 1991 PCV13) DTaP/Tdap/Td Vaccines (1 - Tdap) 1996 DEPRESSION SCREENING 1997 INFLUENZA VACCINE (#1) 2019 07/26/2018 HEPATITIS A IMMUNIZATION SERIES Aged Out No longer eligible based on patient's age to complete this topic HPV IMMUNIZATION SERIES Aged Out No longer eligible based on patient's age to complete this topic documented as of this encounter Implants Implanted Type Area Delinquency Prevention Officer Device Shelf Model / Identifier Expiration Serial / Lot Date Aston Graft Regular Wall 6x40 - [id number] Left: Arm [employer] [id number] / Implanted: Qty: 1 on 03/10/2012 at [facility] / [id number] Propaten Graft Right: [employer] [id number] / Implanted: Qty: 1 on 12/13/2012 at [facility] / [id number] Description:[id number] Artegraft Collagen Vascular Graft Right: Leg 02/26/2018 [id number] / Implanted: Qty: 1 on 08/26/2015 by Zakiya Ernandez MD at [facility] / [id number] Description:c1768 documented as of this encounter Procedures Procedure Name Priority Date/Time Associated Comments Diagnosis HEPATITIS B CORE AB, STAT 11/03/2019 3:33 Results for this TOTAL PM EST procedure are in the results section. RAINBOW DRAW GOLD TOP STAT 11/03/2019 3:33 PM EST HEPATITIS B SURFACE STAT 11/03/2019 3:33 Results for this ANTIBODY PM EST procedure are in the results section. HEPATITIS B SURFACE STAT 11/03/2019 3:33 Results for this ANTIGEN PM EST procedure are in the results section. RENAL FUNCTION PANEL STAT 11/03/2019 3:33 Results for this PM EST procedure are in the results section. XR CHEST 1 VIEW DEEP 11/03/2019 11:56 Results for this AM EST procedure are in the results section. SP PERIPHERAL Routine 11/03/2019 10:53 Results for this ANGIOPLASTY AM EST procedure are in the results section. SP ARTERIOVENOUS Routine 11/03/2019 10:52 Results for this FISTULAGRAM AM EST procedure are in the results section. documented in this encounter Results RAINBOW DRAW GOLD TOP (11/03/2019 3:33 PM EST) Specimen Blood - Blood specimen (specimen) Performing Organization Address City/[facility] [[email or web address] Phone Number [employer] [facility] [address] [address] HEPATITIS B CORE AB, TOTAL (11/03/2019 3:33 PM EST) Hb Core Ab 2.93 >1.00 S/C [employer] [facility] Specimen Blood - Blood specimen (specimen) Narrative Performed At Vitros Test Result [employer] [facility] Conclusion From Testing Algorithm <=0.90 Reactive >1.10 Negative Performing Organization Address [facility] Phone Number [employer] [facility] [address] [address] HEPATITIS B SURFACE ANTIBODY (11/03/2019 3:33 PM EST) Hepatitis B 128.00 See Result JARRETT MEDICAL Surface Antibody Interpretation for GROUP LAB[facility] Immune Status mIU/ml Specimen Blood - Blood specimen (specimen) Narrative Performed At Vitros Test Result [employer] [facility] Result Interpretation <5.00 mIU/ml Negative or Non-Immune >=5.00 and <12.0 mIU/ml Indeterminate* >=12.0 mIU/ml Positive or Immune *Note for Indeterminate Results: It is recommended that a new specimen be obtained in two weeks and retested. Performing Organization Address City/[facility] [[email or web address] Phone Number [employer] [facility] [address] [address] HEPATITIS B SURFACE ANTIGEN (11/03/2019 3:33 PM EST) Hepatitis B Surface 0.08 <0.90 S/C [employer] [facility] Antigen LABORATORY Specimen Blood - Blood specimen (specimen) Narrative Performed At Vitros Test Result [employer] [facility] Conclusion from Testing Algorithm <0.90 Negative >=0.90 and <=5.00 Reactive >5.00 Positive Performing Organization Address City/[facility] [[email or web address] Phone Number [facility] [address] [place] [address] RENAL FUNCTION PANEL (11/03/2019 3:33 PM EST) Sodium 137 134 - 145 mmol/L [facility] Potassium 4.2 3.5 - 5.1 mmol/L [facility] Chloride 95 (L) 98 - 107 mmol/L [facility] CO2 22 22 - 30 mmol/L [facility] Glucose 99 70 - 99 mg/dl [facility] Creatinine 11.8 (H) 0.8 - 1.5 mg/dl [facility] BUN 48 (H) 9 - 20 mg/dl [facility] Calcium 7.9 (L) 8.3 - 10.1 mg/dl [facility] Albumin 4.8 3.5 - 5.0 g/dl [facility] Phosphorus 4.2 2.5 - 4.5 MG/DL [facility] eGFR 5 See Interpretation [facility] Comment: Below ml/min/1.73ml GROUP Estimated GFR Interpretation: Sq LABORATORY Above 60ml/min/1.73m2 = Normal Renal Function 30-59 ml/min/1.73m2 = Stage 3 Chronic Kidney Disease 15-29 ml/min/1.73m2 = Stage 4 Chronic Kidney Disease Less than 15 ml/min/1.73m2 = Stage 5 Chronic Kidney Disease The GFR value is calculated using the Modification of Diet in Renal Disease ( MDRD) Study Equation which can be found at: https://www.kidney.org/content/nnxj-aaabb-hqgssmir BUN/Creatinine 4 (L) 6 - 22 RATIO [facility] GROUP LABORATORY Anion Gap 20 (H) 3 - 11 mmol/L [facility] Specimen Blood - Blood specimen (specimen) Performing Organization Address City/[facility] [[email or web address] Phone Number [employer]ARK[employer] [facility] [address] [place] [address] [phone] XR CHEST 1 VIEW (11/03/2019 11:56 AM EST) Specimen Impressions Performed At Widespread bilateral hazy opacities would most commonly represent atypical/viral pneumonia in the appropriate clinical setting. In this setting of congestive heart failure, however, this would probably represent pulmonary edema. Note that the opacity seems mildly more increased in the right upper lung which is sometimes seen in the presence of mitral insufficiency. Signed by Kemar Queen MD, LALY on 11/03/2019 12:05 PM Narrative Performed At Procedure(s): XR CHEST 1 VIEW Date of service: 11/03/2019 11:39 AM Provided clinical information: 34 years, Male, "congestive heart failure" Procedure and materials: 1 image of the chest was obtained. Comparison studies: CT of the chest dated 05/24/2018, chest x-ray dated 07/10/2013. Devices: EKG leads. Observations: Soft tissue density at the right upper mediastinum corresponds to known vascular structures. Hazy bilateral opacities. No pneumothorax. No effusion. Procedure Note Interface, Rad Results - 11/03/2019 12:08 PM EST Procedure(s): XR CHEST 1 VIEW Date of service: 11/03/2019 11:39 AM Provided clinical information: 34 years, Male, "congestive heart failure" Procedure and materials: 1 image of the chest was obtained. Comparison studies: CT of the chest dated 05/24/2018, chest x-ray dated 07/10/2013. Devices: EKG leads. Observations: Soft tissue density at the right upper mediastinum corresponds to known vascular structures. Hazy bilateral opacities. No pneumothorax. No effusion. IMPRESSION Widespread bilateral hazy opacities would most commonly represent atypical/viral pneumonia in the appropriate clinical setting. In this setting of congestive heart failure, however, this would probably represent pulmonary edema. Note that the opacity seems mildly more increased in the right upper lung which is sometimes seen in the presence of mitral insufficiency. Signed by Kemar Queen MD, LALY on 11/03/2019 12:05 PM SP PERIPHERAL ANGIOPLASTY RIGHT SIDE (11/03/2019 10:53 AM EST) Specimen Impressions Performed At Impression: Occluded bovine carotid dialysis graft with various areas of stenosis as above good result after thrombolysis and standard balloon angioplasty. Procedure and materials: Standard protocol. Comparison studies: None. Urgency: Routine. This is a routine medical imaging report. Recommendation: No specific imaging recommendation. Signed by Zakiya Ernandez MD on 11/03/2019 9:01 PM Narrative Performed At Procedure(s): SP ARTERIOVENOUS FISTULAGRAM, SP PERIPHERAL ANGIOPLASTY Date of service: 11/03/2019 8:22 AM Provided clinical information: 34 years, Male, "av graft occlusion, Right leg" Reason for exam: Thrombosed right leg arteriovenous dialysis graft. PREOPERATIVE DIAGNOSIS: 1. Thrombosed right leg arteriovenous dialysis graft. 2. End-stage renal disease on dialysis. POSTOPERATIVE DIAGNOSIS: 1. Thrombosed right leg arteriovenous dialysis graft. 2. Greater than 50% stenosis venous anastomosis AV dialysis graft. 3. Greater than 50% stenosis right iliac vein. 4. Greater than 50% stenosis inferior vena cava. 5. End-stage renal disease on dialysis. PROCEDURE: 1. Percutaneous instillation of TPA/thrombolyzes of the right leg bovine carotid graft. 2. Percutaneous ultrasound-guided access to the right leg bovine carotid graft (separate access towards the arterial anastomosis) with catheter directed thrombolysis and balloon angioplasty of arterial aspect of the graft with radiology supervision and interpretation. 3. Percutaneous ultrasound-guided access to the right leg bovine carotid dialysis graft(separate access towards the venous anastomosis) with percutaneous balloon angioplasty distal AV graft and the venous anastomosis with radiology supervision interpretation and shuntogram and right lower extremity venogram with radiology supervision interpretation. 4. Placement of guidewire and catheter into the right iliac veins and ultimately into the inferior vena cava with right iliac veins and inferior vena cava venogram with radiology supervision interpretation. 5. Percutaneous standard ballon angioplasty of the right iliac veins with radiology supervision and interpretation. 6. Percutaneous standard balloon angioplasty of the inferior vena cava with radiology supervision and interpretation. Surgeon:Zakiya Ernandez MD Anesthesia: GETA Estimated blood loss: Less than 50 mL Complications: None DISPOSITION: The patient the procedure well and he was transferred to recovery room extubated in stable condition. Indication for procedure: This a 34 years old male who presented with an occluded right leg graft. 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 I discussed with the patient the procedure in detail. We have discussed in detail the benefits, alternatives, risk and potential complications. All questions were answered. The patient seemed to understand and requested the procedure to be done. FINDINGS: On the initial evaluation after instillation of the TPA the graft was still occluded. After catheter directed thrombolysis of the arterial end of the graft and balloon angioplasty of the distal end of the graft and the venous anastomosis we obtained a good visual result with patent graft, no residual stenosis, no flow-limiting dissection or extravasation with excellent flow into the femoral vein initially. The proximal arterial end of the graft had some residual thrombus which improved after ballon angioplasty, with excellent flow through the graft and a good visual result.The right femoral vein, right common femoral vein and the right external iliac vein into the right common iliac vein appears to be open no stenosis. There was a greater than 50% recurrent stenosis into the right iliac veins and inferior vena cava with improvement after standard balloon angioplasty. Procedure in detail: In the preoperative area we sterilely prepped and draped the right thigh and under strict sterile condition we injected TPA in the graft at multiple levels using a 27-gauge needle and syringe. We injected a total of 15 mg of TPA in the graft. We manually macerated the thrombus mixing it with TPA. A sterile dressing and Mynor wrap was placed. The patient was brought to the endovascular suite and placed supine on the endovascular table. General anesthesia LMA was delivered. IV antibiotics were administrated. Patient also received corticosteroids for prevention of dye-induced allergies. The right leg was sterilely prepped and draped in usual fashion. We evaluated the right leg graft with ultrasound with the above findings. I first obtained access into the arterial end of the graft with a micropuncture needle and real-time ultrasonic guidance and micropuncture wire was fed in directed it towards the arterial anastomosis followed by micropuncture sheath followed by a J-wire followed by a 6 Fijian SideArm sheath that we flushed with heparin saline. Using an angle Glidewire and an angle glidecatheter I was able to traverse the area of occlusion in the proximal graft as well as the arterial anastomosis and confirmed the position of the catheter into the superficial femoral artery proximal to the proximal anastomosis. I confirmed with angiogram which showed the SFA widely patent with graft occluded. I exchanged to a Magique torque wire. I have then placed a 10 cm infusion length Harshad catheter across the arterial end of the graft and infused slowly 5 mg of the TPA cross this area. We waited 15 minutes to dwell. I have then accessed the proximal segment of the graft directed towards the venous anastomosis with a micropuncture needle and real-time ultrasonic guidance and a micropuncture wire was fed in followed by micropuncture sheath followed by a J-wire followed by a 7 Fij[place] SideArm sheath that we flushed with heparinized saline. Systemic heparin given and it was supplemented through the case. Using an angle Glidewire an angle glidecatheter I was able to traverse the occluded distal graft and venous anastomosis with moderate difficulty and exchanged to a Magic torque wire. I then balloon angioplasty with a 8mm by 40 mm balloon. Using an angle Glidewire an angle glidecatheter I advanced through the femoral vein, common femoral vein and then position the catheter into the iliac veins and the demonstrated the area of stenosis described above in the iliac veins and inferior vena cava. I traversed this area of stenosis with the angled glide wire and CXI catheter and exchanged to a Magic torque wire. I angioplastied the iliac veins with a 12 mm x 80 mm angioplasty balloon with multiple inflations a least 1 minute long. I angioplastied the inferior vena cava with the 12 mm x 80 mm balloon with prolonged 1 minute inflation. Completion venogram showed improvement. I have then once again advanced a catheter in the right SFA and did a completion shuntogram which showed the above area of residual thrombus in the arterial side of the graft. I then angioplasty the proximal end of the graft and arterial anastomoses with a 7 mm x 40 mm Erick balloon up to nominal pressure. Completion shuntogram showed a good visual result as above. I removed the guidewire and the catheter. The patient has a palpable thrill at this point in the graft. Decided to complete the procedure at this point.Pursestring sutures of 3-0 Surgipro was placed around each one of the access side, the suture was tied up and the sheaths were removed with excellent hemostasis. Quick clot dressings were put in place. The patient has now palpable thrill into the graft and audible bruit. The Doppler signals in the right foot were maintained intact with prior the procedure. The patient tolerated the procedure well and he was transferred to recovery room extubated in stable condition. I discussed the findings in detail with the patient's friend at the end of the procedure. Procedure Note Interface, Rad Results - 11/03/2019 9:03 PM EST Procedure(s): SP ARTERIOVENOUS FISTULAGRAM, SP PERIPHERAL ANGIOPLASTY Date of service: 11/03/2019 8:22 AM Provided clinical information: 34 years, Male, "av graft occlusion, Right leg" Reason for exam: Thrombosed right leg arteriovenous dialysis graft. PREOPERATIVE DIAGNOSIS: 1. Thrombosed right leg arteriovenous dialysis graft. 2. End-stage renal disease on dialysis. POSTOPERATIVE DIAGNOSIS: 1. Thrombosed right leg arteriovenous dialysis graft. 2. Greater than 50% stenosis venous anastomosis AV dialysis graft. 3. Greater than 50% stenosis right iliac vein. 4. Greater than 50% stenosis inferior vena cava. 5. End-stage renal disease on dialysis. PROCEDURE: 1. Percutaneous instillation of TPA/thrombolyzes of the right leg bovine carotid graft. 2. Percutaneous ultrasound-guided access to the right leg bovine carotid graft (separate access towards the arterial anastomosis) with catheter directed thrombolysis and balloon angioplasty of arterial aspect of the graft with radiology supervision and interpretation. 3. Percutaneous ultrasound-guided access to the right leg bovine carotid dialysis graft(separate access towards the venous anastomosis) with percutaneous balloon angioplasty distal AV graft and the venous anastomosis with radiology supervision interpretation and shuntogram and right lower extremity venogram with radiology supervision interpretation. 4. Placement of guidewire and catheter into the right iliac veins and ultimately into the inferior vena cava with right iliac veins and inferior vena cava venogram with radiology supervision interpretation. 5. Percutaneous standard ballon angioplasty of the right iliac veins with radiology supervision and interpretation. 6. Percutaneous standard balloon angioplasty of the inferior vena cava with radiology supervision and interpretation. Surgeon:Zakiya Ernandez MD Anesthesia: GETA Estimated blood loss: Less than 50 mL Complications: None DISPOSITION: The patient the procedure well and he was transferred to recovery room extubated in stable condition. Indication for procedure: This a 34 years old male who presented with an occluded right leg graft. 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 I discussed with the patient the procedure in detail. We have discussed in detail the benefits, alternatives, risk and potential complications. All questions were answered. The patient seemed to understand and requested the procedure to be done. FINDINGS: On the initial evaluation after instillation of the TPA the graft was still occluded. After catheter directed thrombolysis of the arterial end of the graft and balloon angioplasty of the distal end of the graft and the venous anastomosis we obtained a good visual result with patent graft, no residual stenosis, no flow-limiting dissection or extravasation with excellent flow into the femoral vein initially. The proximal arterial end of the graft had some residual thrombus which improved after ballon angioplasty, with excellent flow through the graft and a good visual result.The right femoral vein, right common femoral vein and the right external iliac vein into the right common iliac vein appears to be open no stenosis. There was a greater than 50% recurrent stenosis into the right iliac veins and inferior vena cava with improvement after standard balloon angioplasty. Procedure in detail: In the preoperative area we sterilely prepped and draped the right thigh and under strict sterile condition we injected TPA in the graft at multiple levels using a 27-gauge needle and syringe. We injected a total of 15 mg of TPA in the graft. We manually macerated the thrombus mixing it with TPA. A sterile dressing and Mynor wrap was placed. The patient was brought to the endovascular suite and placed supine on the endovascular table. General anesthesia LMA was delivered. IV antibiotics were administrated. Patient also received corticosteroids for prevention of dye-induced allergies. The right leg was sterilely prepped and draped in usual fashion. We evaluated the right leg graft with ultrasound with the above findings. I first obtained access into the arterial end of the graft with a micropuncture needle and real-time ultrasonic guidance and micropuncture wire was fed in directed it towards the arterial anastomosis followed by micropuncture sheath followed by a J-wire followed by a 6 Fijian SideArm sheath that we flushed with heparin saline. Using an angle Glidewire and an angle glidecatheter I was able to traverse the area of occlusion in the proximal graft as well as the arterial anastomosis and confirmed the position of the catheter into the superficial femoral artery proximal to the proximal anastomosis. I confirmed with angiogram which showed the SFA widely patent with graft occluded. I exchanged to a Magique torque wire. I have then placed a 10 cm infusion length Harshad catheter across the arterial end of the graft and infused slowly 5 mg of the TPA cross this area. We waited 15 minutes to dwell. I have then accessed the proximal segment of the graft directed towards the venous anastomosis with a micropuncture needle and real-time ultrasonic guidance and a micropuncture wire was fed in followed by micropuncture sheath followed by a J-wire followed by a 7 Fij[place] SideArm sheath that we flushed with heparinized saline. Systemic heparin given and it was supplemented through the case. Using an angle Glidewire an angle glidecatheter I was able to traverse the occluded distal graft and venous anastomosis with moderate difficulty and exchanged to a Magic torque wire. I then balloon angioplasty with a 8mm by 40 mm balloon. Using an angle Glidewire an angle glidecatheter I advanced through the femoral vein, common femoral vein and then position the catheter into the iliac veins and the demonstrated the area of stenosis described above in the iliac veins and inferior vena cava. I traversed this area of stenosis with the angled glide wire and CXI catheter and exchanged to a Magic torque wire. I angioplastied the iliac veins with a 12 mm x 80 mm angioplasty balloon with multiple inflations a least 1 minute long. I angioplastied the inferior vena cava with the 12 mm x 80 mm balloon with prolonged 1 minute inflation. Completion venogram showed improvement. I have then once again advanced a catheter in the right SFA and did a completion shuntogram which showed the above area of residual thrombus in the arterial side of the graft. I then angioplasty the proximal end of the graft and arterial anastomoses with a 7 mm x 40 mm Erick balloon up to nominal pressure. Completion shuntogram showed a good visual result as above. I removed the guidewire and the catheter. The patient has a palpable thrill at this point in the graft. Decided to complete the procedure at this point.Pursestring sutures of 3-0 Surgipro was placed around each one of the access side, the suture was tied up and the sheaths were removed with excellent hemostasis. Quick clot dressings were put in place. The patient has now palpable thrill into the graft and audible bruit. The Doppler signals in the right foot were maintained intact with prior the procedure. The patient tolerated the procedure well and he was transferred to recovery room extubated in stable condition. I discussed the findings in detail with the patient's friend at the end of the procedure. IMPRESSION Impression: Occluded bovine carotid dialysis graft with various areas of stenosis as above good result after thrombolysis and standard balloon angioplasty. Procedure and materials: Standard protocol. Comparison studies: None. Urgency: Routine. This is a routine medical imaging report. Recommendation: No specific imaging recommendation. Signed by Zakiya Ernandez MD on 11/03/2019 9:01 PM SP ARTERIOVENOUS FISTULAGRAM (11/03/2019 10:52 AM EST) Specimen Impressions Performed At Impression: Occluded bovine carotid dialysis graft with various areas of stenosis as above good result after thrombolysis and standard balloon angioplasty. Procedure and materials: Standard protocol. Comparison studies: None. Urgency: Routine. This is a routine medical imaging report. Recommendation: No specific imaging recommendation. Signed by Zakiya Ernandez MD on 11/03/2019 9:01 PM Narrative Performed At Procedure(s): SP ARTERIOVENOUS FISTULAGRAM, SP PERIPHERAL ANGIOPLASTY Date of service: 11/03/2019 8:22 AM Provided clinical information: 34 years, Male, "av graft occlusion, Right leg" Reason for exam: Thrombosed right leg arteriovenous dialysis graft. PREOPERATIVE DIAGNOSIS: 1. Thrombosed right leg arteriovenous dialysis graft. 2. End-stage renal disease on dialysis. POSTOPERATIVE DIAGNOSIS: 1. Thrombosed right leg arteriovenous dialysis graft. 2. Greater than 50% stenosis venous anastomosis AV dialysis graft. 3. Greater than 50% stenosis right iliac vein. 4. Greater than 50% stenosis inferior vena cava. 5. End-stage renal disease on dialysis. PROCEDURE: 1. Percutaneous instillation of TPA/thrombolyzes of the right leg bovine carotid graft. 2. Percutaneous ultrasound-guided access to the right leg bovine carotid graft (separate access towards the arterial anastomosis) with catheter directed thrombolysis and balloon angioplasty of arterial aspect of the graft with radiology supervision and interpretation. 3. Percutaneous ultrasound-guided access to the right leg bovine carotid dialysis graft(separate access towards the venous anastomosis) with percutaneous balloon angioplasty distal AV graft and the venous anastomosis with radiology supervision interpretation and shuntogram and right lower extremity venogram with radiology supervision interpretation. 4. Placement of guidewire and catheter into the right iliac veins and ultimately into the inferior vena cava with right iliac veins and inferior vena cava venogram with radiology supervision interpretation. 5. Percutaneous standard ballon angioplasty of the right iliac veins with radiology supervision and interpretation. 6. Percutaneous standard balloon angioplasty of the inferior vena cava with radiology supervision and interpretation. Surgeon:Zakiya Ernandez MD Anesthesia: GETA Estimated blood loss: Less than 50 mL Complications: None DISPOSITION: The patient the procedure well and he was transferred to recovery room extubated in stable condition. Indication for procedure: This a 34 years old male who presented with an occluded right leg graft. 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 I discussed with the patient the procedure in detail. We have discussed in detail the benefits, alternatives, risk and potential complications. All questions were answered. The patient seemed to understand and requested the procedure to be done. FINDINGS: On the initial evaluation after instillation of the TPA the graft was still occluded. After catheter directed thrombolysis of the arterial end of the graft and balloon angioplasty of the distal end of the graft and the venous anastomosis we obtained a good visual result with patent graft, no residual stenosis, no flow-limiting dissection or extravasation with excellent flow into the femoral vein initially. The proximal arterial end of the graft had some residual thrombus which improved after ballon angioplasty, with excellent flow through the graft and a good visual result.The right femoral vein, right common femoral vein and the right external iliac vein into the right common iliac vein appears to be open no stenosis. There was a greater than 50% recurrent stenosis into the right iliac veins and inferior vena cava with improvement after standard balloon angioplasty. Procedure in detail: In the preoperative area we sterilely prepped and draped the right thigh and under strict sterile condition we injected TPA in the graft at multiple levels using a 27-gauge needle and syringe. We injected a total of 15 mg of TPA in the graft. We manually macerated the thrombus mixing it with TPA. A sterile dressing and Mynor wrap was placed. The patient was brought to the endovascular suite and placed supine on the endovascular table. General anesthesia LMA was delivered. IV antibiotics were administrated. Patient also received corticosteroids for prevention of dye-induced allergies. The right leg was sterilely prepped and draped in usual fashion. We evaluated the right leg graft with ultrasound with the above findings. I first obtained access into the arterial end of the graft with a micropuncture needle and real-time ultrasonic guidance and micropuncture wire was fed in directed it towards the arterial anastomosis followed by micropuncture sheath followed by a J-wire followed by a 6 Fijian SideArm sheath that we flushed with heparin saline. Using an angle Glidewire and an angle glidecatheter I was able to traverse the area of occlusion in the proximal graft as well as the arterial anastomosis and confirmed the position of the catheter into the superficial femoral artery proximal to the proximal anastomosis. I confirmed with angiogram which showed the SFA widely patent with graft occluded. I exchanged to a Magique torque wire. I have then placed a 10 cm infusion length Harshad catheter across the arterial end of the graft and infused slowly 5 mg of the TPA cross this area. We waited 15 minutes to dwell. I have then accessed the proximal segment of the graft directed towards the venous anastomosis with a micropuncture needle and real-time ultrasonic guidance and a micropuncture wire was fed in followed by micropuncture sheath followed by a J-wire followed by a 7 Fij[place] SideArm sheath that we flushed with heparinized saline. Systemic heparin given and it was supplemented through the case. Using an angle Glidewire an angle glidecatheter I was able to traverse the occluded distal graft and venous anastomosis with moderate difficulty and exchanged to a Magic torque wire. I then balloon angioplasty with a 8mm by 40 mm balloon. Using an angle Glidewire an angle glidecatheter I advanced through the femoral vein, common femoral vein and then position the catheter into the iliac veins and the demonstrated the area of stenosis described above in the iliac veins and inferior vena cava. I traversed this area of stenosis with the angled glide wire and CXI catheter and exchanged to a Magic torque wire. I angioplastied the iliac veins with a 12 mm x 80 mm angioplasty balloon with multiple inflations a least 1 minute long. I angioplastied the inferior vena cava with the 12 mm x 80 mm balloon with prolonged 1 minute inflation. Completion venogram showed improvement. I have then once again advanced a catheter in the right SFA and did a completion shuntogram which showed the above area of residual thrombus in the arterial side of the graft. I then angioplasty the proximal end of the graft and arterial anastomoses with a 7 mm x 40 mm Erick balloon up to nominal pressure. Completion shuntogram showed a good visual result as above. I removed the guidewire and the catheter. The patient has a palpable thrill at this point in the graft. Decided to complete the procedure at this point.Pursestring sutures of 3-0 Surgipro was placed around each one of the access side, the suture was tied up and the sheaths were removed with excellent hemostasis. Quick clot dressings were put in place. The patient has now palpable thrill into the graft and audible bruit. The Doppler signals in the right foot were maintained intact with prior the procedure. The patient tolerated the procedure well and he was transferred to recovery room extubated in stable condition. I discussed the findings in detail with the patient's friend at the end of the procedure. Procedure Note Interface, Rad Results - 11/03/2019 9:03 PM EST Procedure(s): SP ARTERIOVENOUS FISTULAGRAM, SP PERIPHERAL ANGIOPLASTY Date of service: 11/03/2019 8:22 AM Provided clinical information: 34 years, Male, "av graft occlusion, Right leg" Reason for exam: Thrombosed right leg arteriovenous dialysis graft. PREOPERATIVE DIAGNOSIS: 1. Thrombosed right leg arteriovenous dialysis graft. 2. End-stage renal disease on dialysis. POSTOPERATIVE DIAGNOSIS: 1. Thrombosed right leg arteriovenous dialysis graft. 2. Greater than 50% stenosis venous anastomosis AV dialysis graft. 3. Greater than 50% stenosis right iliac vein. 4. Greater than 50% stenosis inferior vena cava. 5. End-stage renal disease on dialysis. PROCEDURE: 1. Percutaneous instillation of TPA/thrombolyzes of the right leg bovine carotid graft. 2. Percutaneous ultrasound-guided access to the right leg bovine carotid graft (separate access towards the arterial anastomosis) with catheter directed thrombolysis and balloon angioplasty of arterial aspect of the graft with radiology supervision and interpretation. 3. Percutaneous ultrasound-guided access to the right leg bovine carotid dialysis graft(separate access towards the venous anastomosis) with percutaneous balloon angioplasty distal AV graft and the venous anastomosis with radiology supervision interpretation and shuntogram and right lower extremity venogram with radiology supervision interpretation. 4. Placement of guidewire and catheter into the right iliac veins and ultimately into the inferior vena cava with right iliac veins and inferior vena cava venogram with radiology supervision interpretation. 5. Percutaneous standard ballon angioplasty of the right iliac veins with radiology supervision and interpretation. 6. Percutaneous standard balloon angioplasty of the inferior vena cava with radiology supervision and interpretation. Surgeon:Zakiya Ernandez MD Anesthesia: GETA Estimated blood loss: Less than 50 mL Complications: None DISPOSITION: The patient the procedure well and he was transferred to recovery room extubated in stable condition. Indication for procedure: This a 34 years old male who presented with an occluded right leg graft. 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 I discussed with the patient the procedure in detail. We have discussed in detail the benefits, alternatives, risk and potential complications. All questions were answered. The patient seemed to understand and requested the procedure to be done. FINDINGS: On the initial evaluation after instillation of the TPA the graft was still occluded. After catheter directed thrombolysis of the arterial end of the graft and balloon angioplasty of the distal end of the graft and the venous anastomosis we obtained a good visual result with patent graft, no residual stenosis, no flow-limiting dissection or extravasation with excellent flow into the femoral vein initially. The proximal arterial end of the graft had some residual thrombus which improved after ballon angioplasty, with excellent flow through the graft and a good visual result.The right femoral vein, right common femoral vein and the right external iliac vein into the right common iliac vein appears to be open no stenosis. There was a greater than 50% recurrent stenosis into the right iliac veins and inferior vena cava with improvement after standard balloon angioplasty. Procedure in detail: In the preoperative area we sterilely prepped and draped the right thigh and under strict sterile condition we injected TPA in the graft at multiple levels using a 27-gauge needle and syringe. We injected a total of 15 mg of TPA in the graft. We manually macerated the thrombus mixing it with TPA. A sterile dressing and Mynor wrap was placed. The patient was brought to the endovascular suite and placed supine on the endovascular table. General anesthesia LMA was delivered. IV antibiotics were administrated. Patient also received corticosteroids for prevention of dye-induced allergies. The right leg was sterilely prepped and draped in usual fashion. We evaluated the right leg graft with ultrasound with the above findings. I first obtained access into the arterial end of the graft with a micropuncture needle and real-time ultrasonic guidance and micropuncture wire was fed in directed it towards the arterial anastomosis followed by micropuncture sheath followed by a J-wire followed by a 6 Fijian SideArm sheath that we flushed with heparin saline. Using an angle Glidewire and an angle glidecatheter I was able to traverse the area of occlusion in the proximal graft as well as the arterial anastomosis and confirmed the position of the catheter into the superficial femoral artery proximal to the proximal anastomosis. I confirmed with angiogram which showed the SFA widely patent with graft occluded. I exchanged to a Magique torque wire. I have then placed a 10 cm infusion length Harshad catheter across the arterial end of the graft and infused slowly 5 mg of the TPA cross this area. We waited 15 minutes to dwell. I have then accessed the proximal segment of the graft directed towards the venous anastomosis with a micropuncture needle and real-time ultrasonic guidance and a micropuncture wire was fed in followed by micropuncture sheath followed by a J-wire followed by a 7 Fijian SideArm sheath that we flushed with heparinized saline. Systemic heparin given and it was supplemented through the case. Using an angle Glidewire an angle glidecatheter I was able to traverse the occluded distal graft and venous anastomosis with moderate difficulty and exchanged to a Magic torque wire. I then balloon angioplasty with a 8mm by 40 mm balloon. Using an angle Glidewire an angle glidecatheter I advanced through the femoral vein, common femoral vein and then position the catheter into the iliac veins and the demonstrated the area of stenosis described above in the iliac veins and inferior vena cava. I traversed this area of stenosis with the angled glide wire and CXI catheter and exchanged to a Magic torque wire. I angioplastied the iliac veins with a 12 mm x 80 mm angioplasty balloon with multiple inflations a least 1 minute long. I angioplastied the inferior vena cava with the 12 mm x 80 mm balloon with prolonged 1 minute inflation. Completion venogram showed improvement. I have then once again advanced a catheter in the right SFA and did a completion shuntogram which showed the above area of residual thrombus in the arterial side of the graft. I then angioplasty the proximal end of the graft and arterial anastomoses with a 7 mm x 40 mm Erick balloon up to nominal pressure. Completion shuntogram showed a good visual result as above. I removed the guidewire and the catheter. The patient has a palpable thrill at this point in the graft. Decided to complete the procedure at this point.Pursestring sutures of 3-0 Surgipro was placed around each one of the access side, the suture was tied up and the sheaths were removed with excellent hemostasis. Quick clot dressings were put in place. The patient has now palpable thrill into the graft and audible bruit. The Doppler signals in the right foot were maintained intact with prior the procedure. The patient tolerated the procedure well and he was transferred to recovery room extubated in stable condition. I discussed the findings in detail with the patient's friend at the end of the procedure. IMPRESSION Impression: Occluded bovine carotid dialysis graft with various areas of stenosis as above good result after thrombolysis and standard balloon angioplasty. Procedure and materials: Standard protocol. Comparison studies: None. Urgency: Routine. This is a routine medical imaging report. Recommendation: No specific imaging recommendation. Signed by Zakiya Ernandez MD on 11/03/2019 9:01 PM documented in this encounter Visit Diagnoses Diagnosis AV graft thrombosis, initial encounter (HCC) ESRD (end stage renal disease) on dialysis End stage renal disease Iliac vein stenosis, right Compression of vein Inferior vena caval stenosis Compression of vein Occlusion of subclavian vein (HCC) Acute venous embolism and thrombosis of subclavian veins Personal history of allergy to radiographic dye Allergy to radiographic dye documented in this encounter Administered Medications Medication Order MAR Action Action Date Dose Rate Site FentaNYL (PF) (SUBLIMAZE) Given 11/03/2019 12:42 PM EST 25 mcg injection (PF) 25 mcg 25 mcg, Intravenous Push, PRU Q5MIN PRN, 2 doses, Starting Wed11/03/19 at 1233, Until Wed11/03/19 at 1736, Mild Pain (pain scale 1-3) - IV - 1st line - if immediate effect required or patient cannot tolerate PO, 4 Recovery normal saline bolus 100 mL 100 mL, Injection, Q30 MIN PRN, Starting Wed11/03/19 at 1234, Until Wed11/03/19 at 2011, Flush HD system every 30 minutes for duration of treatment session, Flush HD system with 100 mL normal saline (connected to the dialysis system) every 30 minutes for duration of treatment session. Administration will be documented in the flow sheet. Total amount administered will be entered in the eMAR at the end of the treatment session, documented in this encounter Insurance Payer Benefit Plan / Subscriber ID Effective Dates Phone Address Type Group MEDICARE MEDICARE PART A [id number] 1986-Present Medicare & B MEDICAID [facility] [id number] 2019-Present [place] documented as of this encounter Advance Directives Code Status Date Activated Date Inactivated Comments Full Code 05/25/2019 3:43 AM 06/30/2019 7:30 AM Does the patient have decision making capacity? Yes Order was discussed with: Patient I discussed all options and patient/surrogate requested and agreed to: Full Code
--- OUTSIDE RECORDS SUMMARY | 2019-11-08 17:47 | XMS REPORT | Summary of Care ---
:1985 Author Organization [facility] Address 1 [facility] [place] [address] Care Team Providers Name Role Phone Shania Beyer Primary Care Provider Reason for Referral MRI/CAT/PET Scan (Routine) Status Reason Specialty Diagnoses / Procedures Referred By Contact Referred To Contact Closed Radiology Diagnoses AV graft stenosis, sequela Alcon Trinidad NP [facility] Procedures VL LOWER EXTREMITY DUPLEX ARTERIES LEFT [address] [place] [address] [place] [address] [place] [address] Reason for Visit Reason Comments Follow Up AV graft stenosis Encounter Details Date Type Department Care Team Description 09/28/2019 Office Visit [facility] Alcon Trinidad NP AV graft stenosis, Surgery [address] sequela (Primary Dx) 1 [place] [address] [place] [id number] Allergies Active Allergy Reactions Severity Noted Date Comments Cefazolin Sodium Hives 02/15/2012 Ct Dye Anaphylaxis 02/15/2012 Keflex Hives 02/15/2012 Vancomycin Other 02/15/2012 nadya syndrome Phenol-Wasp Venom Respiratory Reaction High 05/22/2013 Also caused hives, Protein hypertension documented as of this encounter (statuses as of 09/29/2019) Medications Medication Sig Dispensed Refills Start Date [...] and 1 hour prior to the procedure OXYcodone Take 1 Tab by 10 Tab 0 07/14/2019 Active (OXY-IR,OXY-FAST) 5 MG mouth EVERY FOUR Oral Tab HOURS NEEDED (Breakthrough). Max Daily Amount: 30 mg. predniSONE (DELTASONE) One tablet 13 3 Tab 0 09/28/2019 Active 50 MG Oral Tab hours prior to procedure, one tablet 7 hours prior to procedure, and one tablet 1 hour prior to procedure with benadryl diphenhydrAMINE Take 1 Cap by 1 Cap 0 09/28/2019 09/29/2019 Active (BENADRYL) 50 MG Oral mouth ONE TIME Cap for 1 dose. 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 Overview: Added automatically from request for surgery [id number] AV shunt thrombosis, subsequent encounter 09/27/2018 Overview: Added automatically from request for surgery [id number] AV shunt stenosis, subsequent encounter 09/06/2018 Overview: Added automatically from request for surgery [id number] Mechanical complication of arteriovenous surgical shunt 08/02/2018 Overview: Added automatically from request for surgery [id number] Cellulitis 05/24/2018 Overview: Cat scratch disease vs Cellulitis in setting of Fistula proximity No systemic signs of infection, no WBC elevation Patient may have received IV Clindamycin at [facility] without benefit for one day IV Ciprofloxacin and IV Flagyl in ED, Change to IV Unasyn and IV Doxycycline Vascular consulted for fistula assessment and care Infectious disease consulted at this time Blood cultures pending AV graft thrombosis, subsequent encounter 01/17/2018 Overview: Added automatically from request for surgery [id number] Arteriovenous graft stenosis, sequela 12/14/2017 Overview: Added automatically from request for surgery [id number] Stage 4 chronic kidney disease 12/14/2017 Overview: Added automatically from request for surgery [id number] Inferior vena caval stenosis 10/07/2016 End stage renal disease 02/06/2015 Iliac vein stenosis, right 02/06/2015 halfway (current) use of anticoagulants 10/30/2013 History of [...] as of this encounter (statuses as of 09/29/2019) Resolved Problems Problem Noted Date Resolved Date Subclavian vein stenosis, 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 03/01/2012 Subclavian vein stenosis, 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 03/01/2012 documented as of this encounter (statuses as of 09/29/2019) Immunizations Name Administration Dates Next Due Influenza [...] Sign Reading Time Taken Comments Blood Pressure 124/70 09/28/2019 1:59 PM EST Pulse 84 09/28/2019 1:59 PM EST Temperature - - Respiratory Rate 20 09/28/2019 1:59 PM EST Oxygen Saturation - - Inhaled Oxygen Concentration - - Weight - - Height - - Body Mass Index - - documented in this encounter Patient Instructions Patient InstructionsAlcon Trinidad NP - 09/28/2019 2:00 PM EST09/28/2019 Date of Surgery: 10/04/2019 Procedure: Right leg shuntogram, possible angioplasty, possible stent Your Surgeon: Dr. Ernandez One day before surgery: 10/03/2019 Nothing to eat or drink after midnight Continue taking all medications by mouth Shower with Endur soap in the evening Day of surgery: 10/04/2019 Nothing to eat or drink Shower with Endur soap this morning Take all of your blood pressure and cardiac medications you normally take in the morning with a sip of water Come to Ambulatory Surgery Waiting Area on the 4th floor of the [facility] at the indicated time: 09:30 am Pre medication ordered, start the night before surgery. Prednisone 13 hours before procedure, 7 hours before, and 1 hour before with Benadryl YOU MUST HAVE A APPRENTICE ELECTRICIAN TO DRIVE YOU HOME AFTER THE PROCEDURE Preadmission services will call you to review insurance and nursing history. If you are not contacted by the day prior to your surgery, please contact them at [phone]. Please expect a 1-2 hour wait in prep and recovery prior to your surgery or procedure. The doctor will see your family after the procedure. If any questions call our office at [phone] or [phone] documented in this encounter Progress Notes Alcon Trinidad NP - 09/28/2019 2:00 PM EST PATIENT: Oscar Peacock : 1985 DATE OF SERVICE: 09/28/2019 REFERRING PRACTITIONER: Self-Referred PRIMARY CARE PROVIDER: Shania Beyer Subjective CHIEF COMPLAINT: Chief Complaint Patient presents with Follow Up AV graft stenosis Subjective HISTORY OF PRESENT ILLNESS: Oscar Peacock is a 34-y.o. male who is seen today with c/o high pressure alarms with dialysis through right leg fistula for about 2 weeks. He denies any bleeding during or prolonged bleeding after dialysis. He is not using left upper arm fistula. Reports "it's not working right". Patient does dialysis at home, 5 days a week. He denies swelling in legs. He denies chest pain, shortness of breath, or recent fever and chills. From [facility] [employer] DIRECTOR's note He has history of IVC stenosis. He is most recently s/p right leg shuntogram with angioplasty of right iliac vein on 03/31/19. He is s/p right leg shuntogram with angioplasty of right iliac vein and inferior vena cava on 03/08/19. He notes he was admitted to [facility] 03/15/19 for stabbing abdominal pain and Ct scan showed partial bowel obstruction. The bowel obstruction was treated with NG tube, iv fluids and pain management. He has ESRD and does home dialysis. He alternates between left arm fistula and right leg bovine carotid artery artery. PREVIOUS DIAGNOSTICS: 07/13/2019 IMPRESSIONS: Pain left arm PVRs of the bilateral upper arms, forearms and 3rd digits are normal. Dopplers of the right brachial and ulnar arteries are triphasic. The right radial could not be identified. Dopplers of the left brachial, radial and ulnar arteries are triphasic. Rt MARQUITA 1.1 Rt TBI 1.1 Lt MARQUITA 1.2 Lt TBI 1.0 PPGs were done on all 10 digits. All five digits of the right hand are normal. PPGs of the left 2nd, 3rd and 4th digits are mild and moderate in the 1st and 5th digit. There is no previous exam available for comparison. IMPRESSIONS: Left arm AVG Duplex imaging of the left AVG demonstrates an increased velocity of 479/253cm/ sec with narrowing inthe proximal graft. Inflow artery:cm/sec Prx 113/64 Mid 111/64 Dst 97/50 Arterial anastamosis: 190/119cm/sec Graft:cm/sec Prx 479/253 Mid 161/74 Dst 103/54 Venous anastamosis: 344/189cm/sec Outflow vein:cm/sec Prx 80/29 Mid 67/48 Dst 54/19 The increased velocity in the proximal graft is new since the previous exam of 06/23/19. IMPRESSIONS: Pain in left arm Duplex imaging of the left upper extremity arteries demonstrates widely patent arteries with no evidence of elevated velocities. There is no previous available for comparison. 07/04/2019 IMPRESSIONS: Indication: sluggish flow during dialysis treatment [...] to be no signficant change compared to the previous exam of 06/23/2019. 06/23/19 IMPRESSIONS: Indication: Left arm numbness. Follow [...] Velocities are as follows: Inflow Artery: cm/s GEOTHERMAL POWERPLANT SUPERVISOR:142/66 SFA prox: 210/118 prox-mid:227/146 Arterial anastomosis: 499/227* [...] 1985 & 1994 ALSO EXPLANTED- PARATHYROIDECTOMY 2002 CT INTRO AV SHUNT Right 02/06/2015 Procedure: Shuntogram RIGHT lower extremity with balloon angioplasty RIGHT iliac vein, RIGHT venogram; Surgeon: Zakiya Ernandez MD; Location: [facility] MAIN OR CT INTRO AV SHUNT N/A 04/19/2015 Procedure: RIGHT LOWER EXTREMITY SHUNTOGRAM WITH VENOGRAM,ANGIOPLASTY; Surgeon : Zakiya Ernandez MD; Location: [facility] MAIN OR CT INTRO AV SHUNT Right 05/20/2015 Procedure: RIGHT LOWER EXTREMITY SHUNTOGRAM WITH VENOGRAM AND ANGIOPLASTY; Surgeon: Zakiya Ernandez MD; Location: [facility] MAIN OR CT INTRO AV SHUNT Left 08/29/2015 Procedure: PERCUTANEOUS THROMBECTOMY OF LEFT UPPER ARM SHUNT WITH BALLOON ANGIOPLASTY; Surgeon: Milana Valadez MD; Location: [facility] MAIN OR CT VENOUS ANGIOPLASTY 7.3.[address] ANGIO AV SHUNT COMPLETE EVAL Right 01/29/2017 Procedure: FISTULOGRAM AV right leg shuntogram with angioplasty ; Surgeon: Kalpana Caban MD; Location: [facility] MAIN OR CT APPENDECTOMY CT CREAT AV FISTULA,AUTOGENOUS GRAFT CT INTRO CATH DIALYSIS CIRCUIT DX ANGRPH FLUOR S&I Right 01/05/2018 Procedure: RIGHT LEG SHUNTOGRAM WITH BALLOON ANGIOPLASTY; Surgeon: Zakiya Ernandez MD; Location: [facility] MAIN OR CT INTRO CATH DIALYSIS CIRCUIT W/TRLUML BALO ANGIOP Right 06/09/2017 Procedure: Fistulogram RIGHT leg with balloon angioplasty and inferior vena cavagram.; Surgeon: Zakiya Ernandez MD; Location: [facility] MAIN OR CT THROMBECTOMY A-V GRAFT, EXC HEMODIALYSIS Right 01/21/2018 Procedure: right leg shuntofram with thromolysis, thrombectomy; Surgeon: Zakiya Ernandez MD; Location: [facility] MAIN OR Current Outpatient Medications Medication Sig [...] by mouth ONE TIME for 1 dose. EPINEPHrine (EPIPEN IJ) by Injection route DIRECTED. epoetin efraín 2,500 units Inject beneath the skin. Every Wednesday & Wed. Indications: as directed gabapentin (NEURONTIN) 100 MG Oral Cap Take 100 mg by mouth THREE TIMES DAILY. OXYcodone (OXY-IR,OXY-FAST) 5 MG Oral Tab Take 1 Tab by mouth EVERY FOUR HOURS NEEDED (Breakthrough). Max Daily Amount: 30 mg. predniSONE (DELTASONE) 50 MG Oral Tab Take 1 Tab by mouth DAILY. Take one tablet 13 hours, 7 hours and 1 hour prior to the procedure predniSONE (DELTASONE) 50 MG Oral Tab One tablet 13 hours prior to procedure, one tablet 7 hours prior to procedure, and one tablet 1 hour prior to procedure with benadryl sodium polystyrene (KAYEXALATE) Oral Powder Take 15 [...] are negative Objective PHYSICAL EXAMINATION: VITALS: BP 124/70 (BP Location: Right arm, Patient Position: Sitting) | Pulse 84 | Resp 20 GENERAL: awake, alert, oriented. HEART: regular rate and rhythm LUNGS: clear to auscultation bilaterally EXTREMITIES: arteriovenous graft right leg with good bruit and thrill and left arm arteriovenous fistula with good thrill and bruit. Bilateral lower extremities with very mild edema. NEURO: Oriented X 3 DIAGNOSTICS: 09/28/2019 IMPRESSIONS: Indication: Right mid superficial femoral artery to distal common femoral vein arteriovenous graft. There is no evidence of hemodynamically significant narrowing or stenosis. Inflow Artery: cm/s Prox: 149/81 Mid: 235/135 Dist: 234/146 Arterial Anastomosis: 301/180 Graft: cm/s Prox: 200/136 Mid: 114/72 Dist: 147/94 Venous Anastomosis: 266/166cm/s Outflow Vein: cm/s Prox: 122/85 Mid: 83/49 Dist: 69/38 There is little to no change since the previous exam completed on 07/10/13. Plan IMPRESSION AND PLAN: Oscar Peacock has ESRD with hemodialysis through right leg bovine carotid artery graft placed almost 4 years ago. Complains today of difficulty with dialysis through right leg graft. Ultrasound with little change from previous in June. No evidence of hemodynamically significant narrowing or stenosis. ICD-9-CM ICD-10-CM 1. AV graft stenosis, sequela 909.3 T82.858S VL LOWER EXTREMITY DUPLEX ARTERIES LEFT CASE REQUEST OPERATING ROOM BASIC METABOLIC PANEL CBC WITH DIFFERENTIAL Discussed with . Recommends right leg shuntogram, venogram, possible angioplasty, possible stent. Procedure, benefits, and risks reviewed including but not limited to bleeding, infection, damage to blood vessels, need for further intervention and risks of anesthesia. Patient's questions answered. Patient would like to proceed with surgery. Patient will have blood work today. Patient given a bottle of Endur soap. Instructions reviewed with patient. Patient Instructions 09/28/2019 Date of Surgery: 10/04/2019 Procedure: Right leg shuntogram, possible angioplasty, possible stent Your Surgeon: Dr. Ernandez One day before surgery: 10/03/2019 Nothing to eat or drink after midnight Continue taking all medications by mouth Shower with Endur soap in the evening Day of surgery: 10/04/2019 Nothing to eat or drink Shower with Endur soap this morning Take all of your blood pressure and cardiac medications you normally take in the morning with a sip of water Come to Ambulatory Surgery Waiting Area on the 4th floor of the [facility] at the indicated time: 09:30 am Pre medication ordered, start the night before surgery. Prednisone 13 hours before procedure, 7 hours before, and 1 hour before with Benadryl YOU MUST HAVE A APPRENTICE ELECTRICIAN TO DRIVE YOU HOME AFTER THE PROCEDURE Preadmission services will call you to review insurance and nursing history. If you are not contacted by the day prior to your surgery, please contact them at [phone]. Please expect a 1-2 hour wait in prep and recovery prior to your surgery or procedure. The doctor will see your family after the procedure. If any questions call our office at [phone] or [phone] Author: Alcon Trinidad NP 09/29/2019 12:34 documented in this encounter Plan of Treatment Date Type Specialty Care Team Description 10/04/2019 Hospital Encounter [facility] Short Procedure MD [place] 1 [place] [address] 10/04/2019 Surgery [facility] FISTULOGRAM AV ROOM MD [place] [address], SHUNTOGRAM, 1 [place] VENOGRAM, POSSIBLE [place] [address] ANGIOPLASTY, POSSIBLE STENT, RIGHT LOWER (Fax) EXTREMITY Name Type Priority Associated Diagnoses Order Schedule CASE REQUEST OPERATING Procedures Routine AV graft stenosis, Ordered: 09/28 ROOM [facility] Maintenance Due Date Last Done Comments [...] of this encounter Implants Implanted Type Area Security Ambassador Device Shelf Model / Identifier Expiration Serial / Lot Date Adair Graft Regular Wall 6x40 - [id number] Left: Arm Meg RIOS [id number] / Implanted: Qty: 1 on 03/10/2012 at [facility] / [id number] Propaten Graft Right: Meg RIOS [id number] / Implanted: Qty: 1 on 12/13/2012 at [facility] / [id number] Description:[id number] Artegraft Collagen Vascular Graft Right: Leg 02/26/2018 [id number] / Implanted: Qty: 1 on 08/26/2015 by Zakiya Ernandez MD at [facility] / [id number] Description:c1768 documented as of this encounter Results CBC WITH DIFFERENTIAL (09/28/2019 2:46 PM EST) WBC Count 5.12 4.23 - 9.07 K/uL [facility] RBC Count 3.32 (L) 4.30 - 5.89 M/UL [facility] Hemoglobin 10.2 (L) 13.7 - 17.5 g/dL [facility] Hematocrit 32.3 (L) 40.1 - 51.0 % [facility] MCV 97.3 (H) 79.0 - 92.2 FL [facility] MCH 30.7 25.7 - 32.2 PG [facility] MCHC 31.6 (L) 32.3 - 36.5 g/dL [facility] Platelet Count 179 163 - 337 K/uL [facility] MPV 11.2 9.4 - 12.4 FL [facility] RDW 16.7 (H) 11.6 - 14.4 % [facility] Neutrophil % 65.6 34.0 - 67.9 % [facility] Lymphocyte % 18.8 (L) 21.8 - 53.1 % [facility] Monocyte % 11.7 5.3 - 12.2 % [facility] Eosinophil % 2.5 0.8 - 7.0 % [facility] Basophil % 1.0 0.2 - 1.2 % [facility] nRBC % 0.0 0.0 - 0.2 % [facility] Neutrophil # 3.36 1.78 - 5.38 K/UL [facility] Lymphocyte # 0.96 (L) 1.32 - 3.57 K/UL [facility] Monocyte # 0.60 0.30 - 0.82 K/UL [facility] Eosinophil # 0.13 0.04 - 0.54 K/UL [facility] Basophil # 0.05 0.01 - 0.08 K/UL [facility] Immature Gran % 0.4 0.0 - 0.4 % [facility] Immature Gran # 0.02 0.00 - 0.03 K/uL [facility] NRBC # 0.00 0.00 - 0.12 K/uL [facility] Specimen Blood - Blood specimen (specimen) Performing Organization Address City/State/[facility] Phone Number [facility] [address] [place] [address] BASIC METABOLIC PANEL (09/28/2019 2:46 PM EST) Glucose 86 70 - 99 mg/dl [facility] BUN 71 (H) 9 - 20 mg/dl [facility] Creatinine 13.7 (H) 0.8 - 1.5 mg/dl [facility] Sodium 141 134 - 145 mmol/L [facility] Potassium 4.0 3.5 - 5.1 mmol/L [facility] Chloride 96 (L) 98 - 107 mmol/L [facility] CO2 28 22 - 30 mmol/L [facility] Calcium 7.4 (L) 8.3 - 10.1 mg/dl [facility] eGFR 4 See Interpretation [facility] Comment: Below ml/min/1.73ml GROUP Estimated GFR Interpretation: LABORATORY Above 60ml/min/1.73m2 = Normal Renal Function 30-59 ml/min/1.73m2 = Stage 3 Chronic Kidney Disease 15-29 ml/min/1.73m2 = Stage 4 Chronic Kidney Disease Less than 15 ml/min/1.73m2 = Stage 5 Chronic Kidney Disease The GFR value is calculated using the Modification of Diet in Renal Disease ( MDRD) Study Equation which can be found at: https://www.kidney.org/content/tgbt-qbfwv-zvhlmleq BUN/Creatinine 5 (L) 6 - 22 RATIO [facility] LABORATORY Anion Gap 17 (H) 3 - 11 mmol/L [facility] Specimen Blood - Blood specimen (specimen) Performing Organization Address City/State/Zipcode Phone Number [facility] [address] [place] [address] VL LOWER EXTREMITY DUPLEX ARTERIES LEFT (09/28/2019 1:51 PM EST) Specimen Impressions Performed At IMPRESSIONS: Indication: Right mid superficial femoral artery to distal common femoral vein arteriovenous graft. There is no evidence of hemodynamically significant narrowing or stenosis. Inflow Artery: cm/s Prox: 149/81 Mid: 235/135 Dist: 234/146 Arterial Anastomosis: 301/180 Graft: cm/s Prox: 200/136 Mid: 114/72 Dist: 147/94 Venous Anastomosis: 266/166cm/s Outflow Vein: cm/s Prox: 122/85 Mid: 83/49 Dist: 69/38 There is little to no change since the previous exam completed on 07/10/13. Narrative Performed At NAME: Ayush Moore BN: [id number] VASCULAR LAB [facility] STUDY DATE: 09/28/19 [address] [place] [place] [address] : 85 AP: Dr Zakiya Ernandez MD REFERRING PROVIDER: Amos Rondon EXAMINATION: Arterial - Lower INDICATION: Complication of AVF/Graft -996.73 TECHNOLOGIST: Angelina Rosario Procedure Note Interface, Rad Results - 09/28/2019 7:33 PM EST NAME: Ayush Moore BN: [id number] [facility] LAB [employer] [facility] STUDY DATE: 09/28/19 [address] [place] [id number] : 85 AP: Dr Zakiya Ernandez MD REFERRING PROVIDER: Amos Rondon EXAMINATION: Arterial - Lower INDICATION: Complication of AVF/Graft -996.73 TECHNOLOGIST: Angelina Rosario IMPRESSION IMPRESSIONS: Indication: Right mid superficial femoral artery to distal common femoral vein arteriovenous graft. There is no evidence of hemodynamically significant narrowing or stenosis. Inflow Artery: cm/s Prox: 149/81 Mid: 235/135 Dist: 234/146 Arterial Anastomosis: 301/180 Graft: cm/s Prox: 200/136 Mid: 114/72 Dist: 147/94 Venous Anastomosis: 266/166cm/s Outflow Vein: cm/s Prox: 122/85 Mid: 83/49 Dist: 69/38 There is little to no change since the previous exam completed on 07/10/13. documented in this encounter Visit Diagnoses Diagnosis AV graft stenosis, sequela Diagnosis AV graft stenosis, sequela Diagnosis AV graft stenosis, sequela documented in this encounter Insurance Payer Benefit Plan / Subscriber ID Effective Dates Phone Address Type Group MEDICARE MEDICARE PART A xxxxxxxxxxx 1986-Present Medicare & B MEDICAID [facility] xxxxxxxx 2019-Present [place] documented as of this encounter Advance Directives Code Status Date Activated Date Inactivated Comments Full Code 05/25/2019 3:43 AM 06/30/2019 7:30 AM Does the patient have decision making capacity? Yes Order was discussed with: Patient I discussed all options and patient/surrogate requested and agreed to: Full Code
--- OUTSIDE RECORDS SUMMARY | 2019-11-08 17:47 | XMS REPORT | Summary of Care ---
:1985 Author Organization [facility] Address 1 [facility] [place] [address] Care Team Providers Name Role Phone Shania Beyer Primary Care Provider Reason for Visit Reason Comments Shunt Problem Auth/Cert Status Reason Specialty Diagnoses / Procedures Referred By Contact Referred To Contact Diagnoses Chronic kidney disease, unspecified Procedures MT PERQ THRMBC/NFS DIALYSIS CIRCUIT IMG DX ANGRPH MT PERQ THRMBC/NFS DIAL CIRCUIT TRLUML BALO ANGIOP MT PERQ THRMBC/NFS DIAL CIRCUIT TCAT PLMT IV STENT MT AV FIST REVISE GRFT,W THROMBECTOMY MT REVSC OPN/PRQ FEM/POP W/STNT/ANGIOP SM VSL Encounter Details Date Type Department Care Team Description 11/01/2019 - Emergency [facility] [address] [place] Shiva Ram MD 1 [place] [id number] Observation 11/02/2019 1 Zakiya Rae MD 1 [place] [address] [phone] [place] [address] Allergies Active Allergy Reactions Severity Noted Date Comments Cefazolin Sodium Hives 02/15/2012 Ct Dye Anaphylaxis 02/15/2012 Keflex Hives 02/15/2012 Vancomycin Other 02/15/2012 nadya syndrome Phenol-Wasp Venom Respiratory Reaction High 05/22/2013 Also caused hives, Protein hypertension documented as of this encounter (statuses as of 11/03/2019) Medications Medication Sig Dispensed Refills Start Date End Date Status epoetin efraín 2,500 Inject beneath 0 Suspended unitsIndications: as the skin. Every directed Wednesday & Wed. Indications: as directed sodium polystyrene Take 15 g by 0 Suspended (KAYEXALATE) Oral mouth NEEDED. Powder Calcium Carbonate Take 640 mg by 0 Suspended (CALCIUM-CARB 600 mouth THREE TIMES PO) DAILY WITH MEALS. EPINEPHrine (EPIPEN by Injection 0 Suspended IJ) route DIRECTED. CALCITRIOL PO Take 2 mcg by 0 Suspended mouth DAILY. gabapentin Take 100 mg by 0 Suspended (NEURONTIN) 100 MG mouth THREE TIMES Oral Cap DAILY. warfarin (COUMADIN) Take 1 Tab by 30 Tab 0 07/04/2019 Suspended 2 MG Oral mouth DAILY. TabIndications: Thrombus Additional Information predniSONE Take 1 Tab by 3 Tab 0 07/04/2019 11/02/2019 Discontinued (DELTASONE) 50 MG mouth DAILY. Take (Duplicate Oral TabIndications: one tablet 13 Order) Allergy to IVP dye, hours, 7 hours and subsequent encounter 1 hour prior to the procedure OXYcodone Take 1 Tab by 10 Tab 0 07/14/2019 11/02/2019 Discontinued (OXY-IR,OXY-FAST) 5 mouth EVERY FOUR (Error) MG Oral Tab HOURS NEEDED (Breakthrough). Max Daily Amount: 30 mg. predniSONE One tablet 13 3 Tab 0 09/28/2019 11/02/2019 Discontinued (DELTASONE) 50 MG hours prior to (Therapy Oral Tab procedure, one Completed) tablet 7 hours prior to procedure, and one tablet 1 hour prior to procedure with benadryl lisinopril Take 20 mg by 0 Suspended (PRINIVIL, ZESTRIL) mouth DAILY. 20 MG Oral Tab metoclopramide Take 5 mg by mouth 0 Suspended (REGLAN) 5 MG Oral THREE TIMES DAILY Tab WITH MEALS. Omeprazole delayed Take 20 mg by 0 Suspended rel cap (PRILOSEC) mouth DAILY. 20 MG Oral CAPSULE DELAYED RELEASE Cholecalciferol 250 Take by mouth. 0 Suspended MCG (95536 UT) Oral Cap HYDROcodone-acetamin Take 1 Tab by 8 Tab 0 10/11/2019 11/02/2019 Discontinued ophen (NORCO) 5-325 mouth EVERY SIX (Error) MG Oral Tab HOURS NEEDED (Pain. please do not exceed 4000 mg of acetaminophen per day). Max Daily Amount: 4 Tabs. acetaminophen Take 2 Tabs by 120 Tab 0 10/11/2019 Suspended (TYLENOL) 325 MG mouth EVERY EIGHT Oral Tab HOURS NEEDED (Pain). 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 Overview: Added automatically from request for surgery [id number] AV shunt thrombosis, subsequent encounter 09/27/2018 Overview: Added automatically from request for surgery [id number] AV shunt stenosis, subsequent encounter 09/06/2018 Overview: Added automatically from request for surgery [id number] Mechanical complication of arteriovenous surgical shunt 08/02/2018 Overview: Added automatically from request for surgery [id number] Cellulitis 05/24/2018 Overview: Cat scratch disease vs Cellulitis in setting of Fistula proximity No systemic signs of infection, no WBC elevation Patient may have received IV Clindamycin at [facility] without benefit for one day IV Ciprofloxacin and IV Flagyl in ED, Change to IV Unasyn and IV Doxycycline Vascular consulted for fistula assessment and care Infectious disease consulted at this time Blood cultures pending AV graft thrombosis, subsequent encounter 01/17/2018 Overview: Added automatically from request for surgery [id number] Arteriovenous graft stenosis, sequela 12/14/2017 Overview: Added automatically from request for surgery [id number] Stage 4 chronic kidney disease 12/14/2017 Overview: Added automatically from request for surgery [id number] Inferior vena caval stenosis 10/07/2016 End stage renal disease 02/06/2015 Iliac vein stenosis, right 02/06/2015 senior living (current) use of anticoagulants 10/30/2013 History of [...] as of this encounter (statuses as of 11/03/2019) Resolved Problems Problem Noted Date Resolved Date Subclavian vein stenosis, 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 03/01/2012 Subclavian vein stenosis, 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 03/01/2012 documented as of this encounter (statuses as of 11/03/2019) Immunizations Name Administration Dates Next Due Influenza [...] Sign Reading Time Taken Comments Blood Pressure 148/80 11/02/2019 9:43 AM EST Pulse 87 11/02/2019 9:43 AM EST Temperature 36.8 11/02/2019 9:43 AM EST C (98.3 F) Respiratory Rate 16 11/02/2019 9:43 AM EST Oxygen Saturation 100% 11/02/2019 9:43 AM EST Inhaled Oxygen Concentration - - Weight 68.2 kg (150 lb 5.7 oz) 11/01/2019 7:55 PM EST Height - - Body Mass Index 27.5 10/11/2019 9:23 AM EST documented in this encounter Discharge Summaries Angelina Van FNP - 11/02/2019 10:02 AM EST [facility] [place]. [id number] Discharge Summary Patient ID: Oscar Peacock [id number] 34-y.o. 1985 Admission date: 11/01/2019 Discharge date: 11/02/2019 Admitting Physician: Zakiya Ernandez MD Indication for Admission: AV graft thrombosis, subsequent encounter Principal Diagnosis: AV graft thrombosis, subsequent encounter Other medical problems managed in the hospital: Hospital Problem list ESRD (end stage renal disease) on dialysis 02/15/2012 * (Principal) AV graft thrombosis, subsequent encounter 01/17/2018 Mechanical complication of arteriovenous surgical shunt (HCC) 08/02/2018 Discharged Condition: good Hospital Course: Oscar Peacock is a 34-y.o. male admitted on 11/01/19 with malfunctioning left leg AV graft. Ultrasound indicated graft is occluded. Dr. Ernandez recommends left leg shuntogram with possible angioplasty, stenting, percutaneous thrombectomy and thrombolysis. Patient wishes to go home and return tomorrowas outpatient. Upon discharge Oscar Peacock is tolerating a general diet without nausea/ emesis, pain is controlled on oral medications, he is ambulating independently, and he is voiding spontaneously. He is not SOB and does not appear to have any retained fluids. Labs ok. BP 148/80 Pulse 87 Temp 98.3 F (36.8 C) (Temporal) Resp 16 Wt 150 lb 5.7 oz (68.2 kg) SpO2 100% BMI 27.5 kg/m2 Lab Results Component Value Date WBC 9.40 (H) 11/02/2019 HGB 7.7 (L) 11/02/2019 HCT 22.7 (L) 11/02/2019 PLAT 179 11/02/2019 Lab Results Component Value Date NA 138 11/02/2019 K 3.7 11/02/2019 CL 94 (L) 11/02/2019 CO2 26 11/02/2019 GLUCOSE 95 11/02/2019 BUN 70 (H) 11/02/2019 CREATININE 17.9 (H) 11/02/2019 CALCIUM 7.1 (L) 11/02/2019 TP 8.2 11/01/2019 ALBUMIN 4.6 11/01/2019 AST 21 11/01/2019 ALT 26 11/01/2019 ALK 74 11/01/2019 TBILI 0.7 11/01/2019 EGFR 3 11/02/2019 Consults: CONSULT TO VASCULAR SURGERY CONSULT TO NEPHROLOGY Treatments: analgesia anticoagulation Procedures: Vl Lower Extremity Duplex Arteries Right Result Date: 11/02/2019 NAME: Ayush Moore BN: [id number] VASCULAR LAB [facility] STUDY DATE: 11/02/19 1 [place] [id number] : 85 AP : Mee Acuna MD REFERRING PROVIDER: To [facility] EXAMINATION: Arterial - Lower INDICATION: Complication of AVF/Graft -996.73 TECHNOLOGIST: Tori Weiner RDMS RVT IMPRESSIONS: Complication of the right mid SFA to common femoral artery AVG Duplex imaging of the right mid SFA to common femoral artery AVG demonstrates no flow or doppler signal in the graft. The AVG is occluded. This is a new finding since the previous exam of 09/28/2019. Vl Upper Extremity Duplex Avfistula Left Result Date: 11/02/2019 NAME: Ayush Moore BN: [id number] VASCULAR LAB [facility] STUDY DATE: 11/02/19 1 [place] [id number] : 85 AP : Mee Acuna MD REFERRING PROVIDER: To [facility] EXAMINATION: Arterial - Upper INDICATION: Complication of AVF/Graft -996.73 TECHNOLOGIST: Tori Weiner [facility] RVT IMPRESSIONS: Left arm AVG Left arm AVG ? Duplex imaging of the left AVG demonstrates an increased velocity of 504/299cm/sec with narrowing in the proximal graft. There is mild narrowing in the midgraft. There is increased velocity with narrowing in the distal graft measuring 412/247. Calcific plaque is seen throughout the graft. ? Inflow artery:cm/sec Brachial Prx 123/ 63 Mid 97/51Dst 111/67 Arterial anastamosis: 216/129cm/sec ? Graft: cm/sec Prx 504/299 Prx/Mid 344/209 Mid 299/177 Mid/Dst 305/196 Dst 412/247 ? Venous anastamosis: 172061rn/sec ? Outflow vein:cm/sec Prx 277 /88 Mid 309/166 Dst 162/68 Volume Flow 1820ml/min There is no significant changein the proximal graft narrowing. The mid graft and distal graft narrowing are new since the previous exam of 07/13/19. ? Operations: none Complications: None Medications: Current Discharge Medication List CONTINUE these medications which have NOT CHANGED acetaminophen 325 MG Tabs Commonly known as: TYLENOL Dose: 650 mg Quantity: 120 Tab Refills: 0 Take 2 Tabs by mouth EVERY EIGHT HOURS NEEDED (Pain). CALCITRIOL PO Dose: 2 mcg Refills: 0 Take 2 mcg by mouth DAILY. CALCIUM-CARB 600 PO Dose: 640 mg Refills: 0 Take 640 mg by mouth THREE TIMES DAILY WITH MEALS. Cholecalciferol 250 MCG (90444 UT) Caps Refills: 0 Take by mouth. EPIPEN IJ Refills: 0 by Injection route DIRECTED. epoetin efraín 2,500 units For: as directed Refills: 0 Inject beneath the skin. Every Wednesday & Wed. Indications: as directed gabapentin 100 MG Caps Commonly known as: NEURONTIN Dose: 100 mg Refills: 0 Take 100 mg by mouth THREE TIMES DAILY. HYDROcodone-acetaminophen 5-325 MG Tabs Commonly known as: NORCO Dose: 1 Tab Quantity: 8 Tab Refills: 0 Take 1 Tab by mouth EVERY SIX HOURS NEEDED (Pain. please do not exceed 4000 mg of acetaminophen per day). Max Daily Amount: 4 Tabs. KAYEXALATE Powd Generic drug: sodium polystyrene Dose: 15 g Refills: 0 Take 15 g by mouth NEEDED. lisinopril 20 MG Tabs Commonly known as: PRINIVIL, ZESTRIL Dose: 20 mg Refills: 0 Take 20 mg by mouth DAILY. OXYcodone 5 MG Tabs Commonly known as: OXY-IR,OXY-FAST Dose: 5 mg Quantity: 10 Tab Refills: 0 Take 1 Tab by mouth EVERY FOUR HOURS NEEDED (Breakthrough). Max Daily Amount : 30 mg. PRILOSEC 20 MG Cpdr Generic drug: Omeprazole delayed rel cap Dose: 20 mg Refills: 0 Take 20 mg by mouth DAILY. REGLAN 5 MG Tabs Generic drug: metoclopramide Dose: 5 mg Refills: 0 Take 5 mg by mouth THREE TIMES DAILY WITH MEALS. warfarin 2 MG Tabs Commonly known as: COUMADIN Dose: 2 mg Quantity: 30 Tab Refills: 0 Take 1 Tab by mouth DAILY. Stop taking these previous medications predniSONE 50 MG Tabs Commonly known as: DELTASONE Oxygen or Positive Pressure Devices: none Patient Instructions: Activity: activity as tolerated Wound Care: None needed Follow-Up: Surgery tomorrow- arrival time 6:30 am Diet: Regular Diet, limited fluids and potassium Provider Signature: ISAURO Acevedo documented in this encounter Discharge Instructions Sunitha Doyle RN - 11/02/2019Provider's Instructions Reason for Admission or Diagnosis:AV graft thrombosis, subsequent encounter Activity/Restrictions: activity as tolerated Skin/Wound Care: none Discharge Diet: Regular Diet Special Instructions: Return tomorrow at 6:30 am for scheduled OR procedure. Discharge Provider: ISAURO Acevedo Attending: Shiva Ram* Time: 10:00 Nurse's Instructions Problems to report to your Physician: Excessive pain or discomfort Fever > 100.5 degrees Difficulty breathing Increase or smell in wound drainage Skin/Wound Care: Skin intact on discharge: N/A Medical Equipment/Supplies to help you at home: N/A Help arranged for you Home Health/Receiving Agency: N/A documented in this encounter Progress Notes Kina Bernal MD - 11/02/2019 9:49 AM EST [facility] [place]. [id number] Nephrology Progress Note Date of Service: 11/02/2019 Patient: Oscar Cleary #: [id number] Attending: SHIVA RAM MD ,MD Case reviewed with Dr. Ernandez. The patient has malfunction of his Lt AVG and nonfunction of his AVG on the right. He will not be getting a fistulogram today but will be getting it done tomorrow. The patient insists upon going home tonight and will return for the procedure tomorrow. Labs show K 3.7 andcurrently w/o sob and saturating well on room air. Pt will return tomorrow for procedure. He does not want a TDC under any circumstances. He also does not want to stay here for dialysis tomorrow and wants to return home post procedure for home HD. Kina Bernal MD documented in this encounter Plan of Treatment Name Type Priority Associated Diagnoses Date/Time 12-LEAD EKG EKG STAT 11/01/2019 8:58 PM EST VL UPPER EXTREMITY Imaging Routine 11/02/2019 9:10 AM EST DUPLEX AVFISTULA LEFT VL LOWER EXTREMITY Imaging Routine 11/02/2019 9:10 AM EST DUPLEX ARTERIES RIGHT Health Maintenance Due Date Last Done Comments [...] of this encounter Implants Implanted Type Area Solar Pool Heating Installer Device Shelf Model / Identifier Expiration Serial / Lot Date [employer] Graft Regular Wall 6x40 - [id number] Left: Arm Meg RIOS [id number] / Implanted: Qty: 1 on 03/10/2012 at [facility] [employer] / [id number] Propaten Graft Right: Meg RIOS [id number] / Implanted: Qty: 1 on 12/13/2012 at [facility] Leg [employer] / [id number] Description:[id number] Artegraft Collagen Vascular Graft Right: Leg 02/26/2018 [id number] / Implanted: Qty: 1 on 08/26/2015 by Zakiya Ernandez MD at [facility] / [id number] Description:[id number] documented as of this encounter Procedures Procedure Name Priority Date/Time Associated Comments Diagnosis TYPE AND SCREEN Routine 11/02/2019 4:49 Results for this AM EST procedure are in the results section. MAGNESIUM LEVEL Routine 11/02/2019 4:49 Results for this AM EST procedure are in the results section. BASIC METABOLIC PANEL Routine 11/02/2019 4:49 Results for this AM EST procedure are in the results section. PROTHROMBIN TIME Routine 11/02/2019 4:49 Results for this AM EST procedure are in the results section. CBC NO DIFFERENTIAL Routine 11/02/2019 4:49 Results for this AM EST procedure are in the results section. PARTIAL THROMBOPLASTIN Routine 11/02/2019 4:49 Results for this TIME AM EST procedure are in the results section. PHOSPHORUS Routine 11/02/2019 4:49 Results for this AM EST procedure are in the results section. MAGNESIUM LEVEL STAT 11/01/2019 10:32 Results for this PM EST procedure are in the results section. COMPREHENSIVE METABOLIC STAT 11/01/2019 10:32 Results for this PANEL PM EST procedure are in the results section. PROTHROMBIN TIME STAT 11/01/2019 9:46 Results for this PM EST procedure are in the results section. PARTIAL THROMBOPLASTIN STAT 11/01/2019 9:46 Results for this TIME PM EST procedure are in the results section. CBC WITH DIFFERENTIAL STAT 11/01/2019 9:43 Results for this PM EST procedure are in the results section. RAINBOW LAB HOLD TUBES STAT 11/01/2019 9:43 Results for this PM EST procedure are in the results section. RAINBOW DRAW LAVENDER STAT 11/01/2019 9:43 TOP PM EST RAINBOW DRAW LIGHT STAT 11/01/2019 9:43 GREEN TOP PM EST RAINBOW DRAW RED TOP STAT 11/01/2019 9:43 Results for this PM EST procedure are in the results section. VITAMIN D 25 HYDROXY Routine 11/01/2019 9:43 Results for this (JARRETT) PM EST procedure are in the results section. IN PT/ED 12 LEAD EKG STAT 11/01/2019 8:58 PM EST documented in this encounter Results TYPE AND SCREEN (11/02/2019 4:49 AM EST) ABO/RH Type B POS [facility] BLOOD BANK Antibody Screen Interp NEG [facility] BLOOD BANK Specimen Blood - Blood specimen (specimen) Performing Organization Address [facility] Phone Number [facility] [place] [address] PROTHROMBIN TIME (11/02/2019 4:49 AM EST) INR 1.18 (H)Comment: INR 0.88 - 1.13 [facility] Therapeutic Range: Ratio GROUP LABORATORY 2.0 - 3.5 Protime 14.8 (H)Comment: 12.0 - 14.5 sec [facility] Reference range GROUP LAB[facility]ORY updated 06/20/2019. Specimen Blood - Blood specimen (specimen) Performing Organization Address [facility] Phone Number [facility] [address] [place] [address] PARTIAL THROMBOPLASTIN TIME (11/02/2019 4:49 AM EST) PTT 38.7 (H)Comment: 21.3 - 35.9 SEC [facility] Reference range GROUP LAB[facility]ORY updated 06/20/2019. Specimen Blood - Blood specimen (specimen) Performing Organization Address [facility]/Zipcode Phone Number [facility] GROUP LABORATORY [address] [place] [address] [phone] MAGNESIUM LEVEL (11/02/2019 4:49 AM EST) Magnesium 2.0 1.6 - 2.3 MG/DL [facility] Specimen Blood - Blood specimen (specimen) Performing Organization Address [facility] Phone Number [place] [facility] [address] [place] [address] BASIC METABOLIC PANEL (11/02/2019 4:49 AM EST) Glucose 95 70 - 99 mg/dl [facility] BUN 70 (H) 9 - 20 mg/dl [facility] Creatinine 17.9 (H) 0.8 - 1.5 mg/dl [facility] Sodium 138 134 - 145 mmol/L [facility] Potassium 3.7 3.5 - 5.1 mmol/L [facility] Chloride 94 (L) 98 - 107 mmol/L [facility] CO2 26 22 - 30 mmol/L [facility] Calcium 7.1 (L) 8.3 - 10.1 mg/dl [facility] eGFR 3 See Interpretation [facility] Comment: Below ml/min/1.73ml GROUP Estimated GFR Interpretation: Sq LABORATORY Above 60ml/min/1.73m2 = Normal Renal Function 30-59 ml/min/1.73m2 = Stage 3 Chronic Kidney Disease 15-29 ml/min/1.73m2 = Stage 4 Chronic Kidney Disease Less than 15 ml/min/1.73m2 = Stage 5 Chronic Kidney Disease The GFR value is calculated using the Modification of Diet in Renal Disease ( MDRD) Study Equation which can be found at: https://www.kidney.org/content/oxej-adwwc-hvxdfjws BUN/Creatinine 4 (L) 6 - 22 RATIO [facility] LABORATORY Anion Gap 18 (H) 3 - 11 mmol/L [facility] Specimen Blood - Blood specimen (specimen) Performing Organization Address City/State/Zipcode Phone Number [facility] [address] [place] [address] CBC NO DIFFERENTIAL (11/02/2019 4:49 AM EST) WBC Count 9.40 (H) 4.23 - 9.07 K/uL [facility] RBC Count 2.43 (L) 4.30 - 5.89 M/UL [facility] Hemoglobin 7.7 (L) 13.7 - 17.5 g/dL [facility] Hematocrit 22.7 (L) 40.1 - 51.0 % [facility] MCV 93.4 (H) 79.0 - 92.2 FL [facility] MCH 31.7 25.7 - 32.2 PG [facility] MCHC 33.9 32.3 - 36.5 g/dL [facility] Platelet Count 179 163 - 337 K/uL [facility] MPV 9.1 (L) 9.4 - 12.4 FL [facility] RDW 17.6 (H) 11.6 - 14.4 % [facility] Specimen Blood - Blood specimen (specimen) Performing Organization Address [facility] Phone Number [facility] [address] [place] [address] [phone] PHOSPHORUS (11/02/2019 4:49 AM EST) Phosphorus 6.6 (H) 2.5 - 4.5 MG/DL [facility] Specimen Blood - Blood specimen (specimen) Performing Organization Address [facility] Phone Number [facility] [address] [place] [address] MAGNESIUM LEVEL (11/01/2019 10:32 PM EST) Magnesium 1.9 1.6 - 2.3 MG/DL [facility] Specimen Blood - Blood specimen (specimen) Performing Organization Address [facility] Phone Number [facility] [address] [place] [address] COMPREHENSIVE METABOLIC PANEL (11/01/2019 10:32 PM EST) Sodium 137 134 - 145 mmol/L [facility] Potassium 3.4 (L) 3.5 - 5.1 mmol/L [facility] Chloride 93 (L) 98 - 107 mmol/L [facility] CO2 24 22 - 30 mmol/L [facility] Calcium 7.5 (L) 8.3 - 10.1 mg/dl [facility] Albumin 4.6 3.5 - 5.0 g/dl [facility] BUN 61 (H) 9 - 20 mg/dl [facility] Creatinine 17.8 (H) 0.8 - 1.5 mg/dl [facility] Glucose 83 70 - 99 mg/dl [facility] Total Protein 8.2 6.3 - 8.2 g/dl [facility] Total Bilirubin 0.7 0.0 - 1.1 MG/DL [facility] AST 21 17 - 59 U/L [facility] ALT 26 21 - 72 U/L [facility] Alkaline 74 40 - 150 U/L [facility] Phosphatase [facility] LAB[facility] eGFR 3 See Interpretation [facility] Comment: Below ml/min/1.73ml GROUP Estimated GFR Interpretation: Sq LABORATORY Above 60ml/min/1.73m2 = Normal Renal Function 30-59 ml/min/1.73m2 = Stage 3 Chronic Kidney Disease 15-29 ml/min/1.73m2 = Stage 4 Chronic Kidney Disease Less than 15 ml/min/1.73m2 = Stage 5 Chronic Kidney Disease The GFR value is calculated using the Modification of Diet in Renal Disease ( MDRD) Study Equation which can be found at: https://www.kidney.org/content/pqvu-bcvrc-zydcizfp BUN/Creatinine 3 (L) 6 - 22 RATIO [facility] Ratio GROUP LABORATORY Anion Gap 20 (H) 3 - 11 mmol/L [facility] A/G Ratio 1.3 0.8 - 2.0 ratio [facility] Specimen Blood - Blood specimen (specimen) Performing Organization Address [facility] Phone Number [facility] [address] [place] [address] PROTHROMBIN TIME (11/01/2019 9:46 PM EST) INR 1.15 (H)Comment: INR 0.88 - 1.13 [facility] Therapeutic Range: Ratio GROUP LABORATORY 2.0 - 3.5 Protime 14.5Comment: 12.0 - 14.5 sec [facility] Reference range GROUP LABORATORY updated 06/20/2019. Specimen Blood - Blood specimen (specimen) Performing Organization Address [facility] Phone Number [facility] [address] [place] [address] PARTIAL THROMBOPLASTIN TIME (11/01/2019 9:46 PM EST) PTT 40.7 (H)Comment: 21.3 - 35.9 SEC [facility] Reference range GROUP LABORATORY updated 06/20/2019. Specimen Blood - Blood specimen (specimen) Performing Organization Address [facility] Phone Number [facility] [address] [place] [address] RAINBOW DRAW LIGHT GREEN TOP (11/01/2019 9:43 PM EST) Specimen Blood - Blood specimen (specimen) Performing Organization Address [facility] Phone Number [facility] [address] [phone] RAINBOW DRAW LAVENDER TOP (11/01/2019 9:43 PM EST) Specimen Blood - Blood specimen (specimen) Performing Organization Address [facility] Phone Number [facility] [address] [phone] RAINBOW DRAW RED TOP (11/01/2019 9:43 PM EST) HOLD EXTRA TUBE [place] Hold [facility] Specimen Blood - Blood specimen (specimen) Performing Organization Address [facility] Phone Number [facility] [address] [id number] CBC WITH DIFFERENTIAL (11/01/2019 9:43 PM EST) WBC Count 9.32 (H) 4.23 - 9.07 K/uL [facility] RBC Count 2.47 (L) 4.30 - 5.89 M/UL [facility] Hemoglobin 7.9 (L) 13.7 - 17.5 g/dL [facility] Hematocrit 23.0 (L) 40.1 - 51.0 % [facility] MCV 93.1 (H) 79.0 - 92.2 FL [facility] MCH 32.0 25.7 - 32.2 PG [facility] MCHC 34.3 32.3 - 36.5 g/dL [facility] Platelet Count 209 163 - 337 K/uL [facility] MPV 9.9 9.4 - 12.4 FL [facility] RDW 17.8 (H) 11.6 - 14.4 % [facility] Neutrophil % 79.6 (H) 34.0 - 67.9 % [facility] Lymphocyte % 7.5 (L) 21.8 - 53.1 % [facility] Monocyte % 10.1 5.3 - 12.2 % [facility] Eosinophil % 2.1 0.8 - 7.0 % [facility] Basophil % 0.5 0.2 - 1.2 % [facility] nRBC % 0.0 0.0 - 0.2 % [facility] Neutrophil # 7.41 (H) 1.78 - 5.38 K/UL [facility] Lymphocyte # 0.70 (L) 1.32 - 3.57 K/UL [facility] Monocyte # 0.94 (H) 0.30 - 0.82 K/UL [facility] Eosinophil # 0.20 0.04 - 0.54 K/UL [facility] Basophil # 0.05 0.01 - 0.08 K/UL [facility] Immature Gran % 0.2 0.0 - 0.4 % [facility] Immature Gran # 0.02 0.00 - 0.03 K/uL [facility] NRBC # 0.00 0.00 - 0.12 K/uL [facility] Specimen Blood - Blood specimen (specimen) Performing Organization Address [facility] Phone Number [facility] [address] [id number] VITAMIN D 25 HYDROXY (JARRETT) (11/01/2019 9:43 PM EST) Vitamin D 25 HYDROXY 29.6 (L) 32.0 - 100.0 [facility] ng/ml [facility] Specimen Blood - Blood specimen (specimen) Narrative Performed At Interpretation: [facility] <20 ng/ml Deficiency 20-<30 ng/ml Insufficiency 32-100 ng/ml Sufficiency >100 ng/ml Potential Toxicity Performing Organization Address [facility] Phone Number [facility] [address] [phone] documented in this encounter Visit Diagnoses Diagnosis Problem with dialysis shunt, initial encounter (HCC) Stenosis of inferior vena cava Compression of vein Occlusion of subclavian vein (HCC) Acute venous embolism and thrombosis of subclavian veins Mechanical complication of arteriovenous surgical shunt (HCC) Mechanical complication of other vascular device, implant, and graft ESRD (end stage renal disease) on dialysis End stage renal disease AV graft thrombosis, subsequent encounter documented in this encounter Administered Medications Medication Order MAR Action Action Date Dose Rate Site acetaminophen (TYLENOL) tablet 650 mg 650 mg, Oral, Q4 HRS PRN, Starting Wed11/01/19 at 2353, Until Lachelle 11/02/19 at 1326 , Mild Pain (pain scale 1-3) - PO - 1st line - if immediate effect not required and patient can tolerate PO, Moderate Pain (pain scale 4-6) - PO - 1st line - if immediate effect not required and patient can tolerate PO OXYcodone (OXY-IR,OXY-FAST) immediate release Given 11/01/2019 10:44 PM EST 5 mg tablet 5 mg 5 mg, Oral, X1, 1 dose, First dose on Wed11/01/19 at 2340 documented in this encounter Insurance Payer Benefit Plan / Subscriber ID Effective Dates Phone Address Type Group MEDICARE MEDICARE PART A [id number] 1986-Present Medicare & B MEDICAID [facility] [id number] 2019-Present Medicaid [place] MED[place] documented as of this encounter Advance Directives Code Status Date Activated Date Inactivated Comments Full Code 05/25/2019 3:43 AM 06/30/2019 7:30 AM Does the patient have decision making capacity? Yes Order was discussed with: Patient I discussed all options and patient/surrogate requested and agreed to: Full Code
--- OUTSIDE RECORDS SUMMARY | 2019-11-08 17:47 | XMS REPORT | Continuity of Care Document ---
:1985 External Reference #:[id number] Author Name Cony Quinn DO (transmitted by agent of provider Luisa Toro) Address [address] [place] [id number] Care Team Providers Name Role Phone David Orantes MD - Nephrology Care Team Information Janitor And Cleaner Alyson Hameed MD - Student in an Care Team Information Janitor And Cleaner [phone] Organized Health Care Education/Training Program Problems Active Problems Provider Date Anemia of chronic renal failure Alyson Hameed MD Onset: 07/04/2019 End-stage renal disease Alyson Hameed MD Onset: 07/04/2019 Sleep apnea Alyson Hameed MD Onset: 07/04/2019 Mitral valve disorder Alyson Hameed MD Onset: 07/04/2019 Tricuspid valve disorder, non-rheumatic Alyson Hameed MD Onset: 07/04/2019 Insomnia Jose Pisano MD Onset: 08/25/2019 End stage renal failure on dialysis Jose Pisano MD Onset: 08/25/2019 Chest pain Jose Pisano MD Onset: 08/25/2019 Social History Type Date Description Comments Sex Unknown Tobacco Use Start: Unknown End: Former Cigarette Smoker recently quit Unknown 1 Pack Daily smoking smoke 1pack per day, starting at age 16, quit at age 33 ETOH Use Denies alcohol use Tobacco Use Start: Unknown End: Patient is a former Unknown smoker Recreational Drug Use Denies Drug Use Smoking Status Reviewed: 10/17/19 Patient is a former smoker Exercise Type/Frequency Exercises regularly walking 3x per week Allergies, Adverse Reactions, Alerts Active Allergies Reaction Severity Comments Date Vancomycin redmans symdrome 07/04/2019 Keflex Hives, Itching 07/04/2019 Wasp Venoms Difficulty Severe 07/04/2019 swallowing, Facial swelling, Tongue swelling IV Contrast Dye Severe 07/04/2019 Penicillin V Potassium Other Penicillins Ok 08/01/2019 Oral Tablet 250 MG per pt Contrast Dye 08/01/2019 Vancocin HCL Oral 08/01/2019 Capsule 250 MG Cephalexin Oral 08/01/2019 Capsule 250 MG Keflex Oral Capsule 08/01/2019 500 MG Medications Active Medications SIG Qnty Indications Ordering Date Provider Tramadol HCL tab twice a day 14tabs M54.5 Cony Quinn, 10/17/2019 50mg Tablets as needed DO Gabapentin 1 capsule three Unknown 100mg Capsules times daily. Calcitrol 2mcg take 1 PO twice Unknown daily Calcium Carbonate 650 3 tablets PO tid Unknown MG Epogen 48683 Units inject subq twice Unknown weekly Heparin Sodium 0.2 mls with Unknown (Porcine) every dialysis [place] [id number] Solution Vitamin E 1 tablet (1000 Unknown mg) twice daily Benadryl Allergy take benadryl 50 Unknown 25mg mg by mouth 1 Tablets hour before contrast injection Melatonin ER take 1 tab Unknown 10mg Tablets nightly as needed ER for sleep. Metoclopramide HCL by mouth three 60tabs Unknown 5mg times a day as Tablets needed Lisinopril 1 by mouth every Unknown 20mg Tablets day Omeprazole 1 by mouth every Unknown 20mg Capsules day DR Tylenol Extra Strength 1-2 tabs by mouth Unknown every 6 hours as 500mg Tablets needed History Medications Zolpidem Tartrate 1 tabs by mouth at 10tabs G47.00 Jose Pisano MD 2018 - bedtime as needed 10/17/2019 5mg Tablets for insomnia Tramadol HCL take every 12 6tabs R07.9 Jose Pisano MD 08/25/2019 - 50mg hours as needed 10/17/2019 Tablets for pain Tramadol HCL take every 8 hours 12tabs Jose Pisano MD 08/22/2019 - 50mg as needed for pain 10/17/2019 Tablets Immunizations CPT Code Status Date Vaccine Lot # [id number] Given 07/04/2019 Tetanus And Diptheria (Td) For Adult Use [id number] Preservative Free Vital Signs Date Vital Result Comment 10/17/2019 1:13pm Height 62 inches 5'2" Weight 171.00 lb Heart Rate 96 /min BP Systolic Sitting 148 mmHg BP Diastolic Sitting 95 mmHg Body Temperature 97.3 F O2 % BldC Oximetry 98 % BMI (Body Mass Index) 31.3 kg/m2 09/12/2019 1:58pm Height 62 inches 5'2" Weight 159.00 lb Heart Rate 91 /min BP Systolic 130 mmHg BP Diastolic 80 mmHg O2 % BldC Oximetry 95 % BMI (Body Mass Index) 29.1 kg/m2 Results Test Acquired Date Facility Test Result H/L Range Note Laboratory test 2019 [facility] Lactic Acid 0.6 mmol/L Normal 0.5-2.0 [address] [place] [address] [phone] CBC Auto Diff 2019 [facility] White Blood 5.6 10^3/uL Normal 3.5-10.[address] [place] [address] [phone] Red Blood Count 3.09 10^6/uL Low 4.18-5.48 Hemoglobin 10.1 g/dL Low 14.0-18.0 Hematocrit 30 % Low 42-52 Mean Corpuscular Volume 98 fL High 80-94 Mean Corpuscular Hemoglobin 33 pg High 27-31 Mean Corpuscular HGB Conc 33 g/dL Normal 31-36 Red Cell Distribution Width 20 % High 10-15 Platelet Count 195 10^3/uL Normal 150-450 Mean Platelet Volume 8.0 fL Normal 7.4-10.4 Abs Neutrophils 4.1 10^3/uL Normal 1.5-7.7 Abs Lymphocytes 0.8 10^3/uL Low 1.0-4.8 Abs Monocytes 0.5 10^3/uL Normal 0-0.8 Abs Eosinophils 0.1 10^3/uL Normal 0-0.6 Abs Basophils 0.0 10^3/uL Normal 0-0.2 Abs Nucleated RBC 0.0 10^3/uL Granulocyte % 73.4 % Lymphocyte % 13.6 % Monocyte % 9.6 % Eosinophil % 2.6 % Basophil % 0.8 % Nucleated Red Blood Cells % 0.0 Comp Metabolic 2019 [facility] Sodium 138 mmol/L Normal 135-[address] [place] [address] [phone] Chloride 96 mmol/L Low 101-111 Co2 Carbon Dioxide 29 mmol/L Normal 22-32 Glucose 95 mg/dL Normal 70-100 Blood Urea Nitrogen 36 mg/dL High 6-24 Creatinine 10.78 mg/dL High 0.67-1.17 BUN/Creatinine Ratio 3.3 Low 8-20 Calcium 8.4 mg/dL Low 8.6-10.3 Total Protein 8.3 g/dL Normal 6.4-8.9 Albumin 4.7 g/dL Normal 3.2-5.2 Globulin 3.6 g/dL Normal 2-4 Albumin/Globulin Ratio 1.3 Normal 1-3 Total Bilirubin 0.60 mg/dL Normal 0.2-1.0 Alkaline Phosphatase 55 U/L Normal 34-104 Alt 13 U/L Normal 7-52 Egfr Non- 5.5 >60 Egfr 6.7 >60 2 Potassium 3.6 mmol/L Normal 3.5-5.0 Anion Gap 13 mmol/L High 2-11 Ast 17 U/L Normal 13-39 Laboratory test 2019 [facility] Troponin-I (TnI) 0.01 ng/ mL <0.03 [address] [place] [address] [phone] B-Type Natriuretic Peptide BNP 148 pg/mL High <=100 CBC Auto 07/20/2019 [facility] White Blood 4.2 10^3/uL Normal 3.5-10.[address] [place] [address] [phone] Red Blood Count 2.91 10^6/uL Low 4.18-5.48 Hemoglobin 9.8 g/dL Low 14.0-18.0 Hematocrit 28 % Low 42-52 Mean Corpuscular Volume 97 fL High 80-94 Mean Corpuscular Hemoglobin 34 pg High 27-31 Mean Corpuscular HGB Conc 35 g/dL Normal 31-36 Red Cell Distribution Width 18 % High 10-15 Platelet Count 219 10^3/uL Normal 150-450 Mean Platelet Volume 7.9 fL Normal 7.4-10.4 Abs Neutrophils 2.7 10^3/uL Normal 1.5-7.7 Abs Lymphocytes 0.7 10^3/uL Low 1.0-4.8 Abs Monocytes 0.5 10^3/uL Normal 0-0.8 Abs Eosinophils 0.2 10^3/uL Normal 0-0.6 Abs Basophils 0.0 10^3/uL Normal 0-0.2 Abs Nucleated RBC 0.0 10^3/uL Granulocyte % 65.1 % Lymphocyte % 16.5 % Monocyte % 12.9 % Eosinophil % 4.6 % Basophil % 0.9 % Nucleated Red Blood Cells % 0.0 Comp Metabolic 07/20/2019 [facility] Sodium 136 mmol/L Normal 135-[address] [place] [address] [phone] Potassium 4.4 mmol/L Normal 3.5-5.0 Chloride 94 mmol/L Low 101-111 Co2 Carbon Dioxide 26 mmol/L Normal 22-32 Anion Gap 16 mmol/L High 2-11 Glucose 95 mg/dL Normal 70-100 Blood Urea Nitrogen 85 mg/dL High 6-24 Creatinine 16.96 mg/dL High 0.67-1.17 BUN/Creatinine Ratio 5.0 Low 8-20 Calcium 7.9 mg/dL Low 8.6-10.3 Total Protein 8.1 g/dL Normal 6.4-8.9 Albumin 4.4 g/dL Normal 3.2-5.2 Globulin 3.7 g/dL Normal 2-4 Albumin/Globulin Ratio 1.2 Normal 1-3 Total Bilirubin 0.40 mg/dL Normal 0.2-1.0 Alkaline Phosphatase 68 U/L Normal 34-104 Alt 10 U/L Normal 7-52 Ast 13 U/L Normal 13-39 Egfr Non- 3.3 >60 Egfr 4.0 >60 4 Laboratory test 07/20/2019 [facility] Lipase 37 U/L Normal 11.0-82.[address] [place] [address] [phone] C Reactive Protein 109.98 mg/L High <8.01 Inr/Protime 07/20/2019 [facility] Inr 1.15 High 0.82-1.[address] [place] [address] [phone] Stool Occult 07/20/2019 [facility] Stool SEE RESULT 6 Blood Diag [address] [place] [address] Blood, [phone] Diag CBC Auto Diff 07/04/2019 [facility] White 6.7 Normal 3.5-10.[address] Blood 10^3/[place] [address] Count [phone] Red Blood Count 2.86 10^6/uL Low 4.18-5.48 Hemoglobin 9.6 g/dL Low 14.0-18.0 Hematocrit 29 % Low 42-52 Mean Corpuscular Volume 100 fL High 80-94 Mean Corpuscular Hemoglobin 34 pg High 27-31 Mean Corpuscular HGB Conc 34 g/dL Normal 31-36 Red Cell Distribution Width 20 % High 10-15 Platelet Count 241 10^3/uL Normal 150-450 Mean Platelet Volume 7.9 fL Normal 7.4-10.4 Abs Neutrophils 4.8 10^3/uL Normal 1.5-7.7 Abs Lymphocytes 0.9 10^3/uL Low 1.0-4.8 Abs Monocytes 0.5 10^3/uL Normal 0-0.8 Abs Eosinophils 0.4 10^3/uL Normal 0-0.6 Abs Basophils 0.1 10^3/uL Normal 0-0.2 Abs Nucleated RBC 0.0 10^3/uL Granulocyte % 71.3 % Lymphocyte % 14.1 % Monocyte % 7.5 % Eosinophil % 6.0 % Basophil % 1.1 % Nucleated Red Blood Cells % 0.1 Comp Metabolic 07/04/2019 [facility] Sodium 139 mmol/L Normal 135-[address] [place] [address] [phone] Potassium 4.4 mmol/L Normal 3.5-5.0 Chloride 98 mmol/L Low 101-111 Co2 Carbon Dioxide 25 mmol/L Normal 22-32 Anion Gap 16 mmol/L High 2-11 Glucose 84 mg/dL Normal 70-100 Blood Urea Nitrogen 87 mg/dL High 6-24 Creatinine 14.34 mg/dL High 0.67-1.17 BUN/Creatinine Ratio 6.1 Low 8-20 Calcium 7.3 mg/dL Low 8.6-10.3 Total Protein 7.7 g/dL Normal 6.4-8.9 Albumin 4.5 g/dL Normal 3.2-5.2 Globulin 3.2 g/dL Normal 2-4 Albumin/Globulin Ratio 1.4 Normal 1-3 Total Bilirubin 0.50 mg/dL Normal 0.2-1.0 Alkaline Phosphatase 94 U/L Normal 34-104 Alt 25 U/L Normal 7-52 Ast 17 U/L Normal 13-39 Egfr Non- 4.0 >60 Egfr 4.8 >60 7 Vitamin B12 07/04/2019 [facility] Vitamin B12 397 pg/mL Normal 180-914 [address] [place] [address] [phone] Folic Acid (Folate) 13.53 ng/mL >3.99 Laboratory 07/04/2019 [facility] Hemoglobin A1c 5.1 % Normal 4.0-5.6 9 test finding [address] (Glyco HGB) [place] [address] [phone] Lipid Profile 07/04/2019 [facility] Triglycerides 92 10 (Trig/Chol/HDL [address] mg/dL ) [place] [address] [phone] Cholesterol 109 mg/dL 11 HDL Cholesterol 39.7 mg/dL 12 LDL Cholesterol 51 mg/dL 13 Phosphorus 06/21/2019 N2N/CCD Import Phosphorus 5.7 High 2.4 - 5.1 Potassium 06/21/2019 N2N/CCD Import Potassium 4.4 3.5 - 5.5 Age Of Patient 06/18/2019 N2N/CCD Import Age Of Patient 33 Bsa (Dimitrios) 06/18/2019 N2N/CCD Import Bsa ([place]) 1.70 Weight-Post (KG) 06/18/2019 N2N/CCD Import Weight-Post (KG) 70.7 Weight-Pre (KG) 06/18/2019 N2N/CCD Import Weight-Pre (KG) 72.3 Height (Inches) 06/18/2019 N2N/CCD Import Height (Inches) 62 Weight (KG) 06/18/2019 N2N/CCD Import Weight (KG) 69.0 # Days/WK Treated 06/18/2019 N2N/CCD Import # Days/WK Treated 4 2 - 3 VT (KT/V TX Vol) 06/18/2019 N2N/CCD Import VT (KT/V TX Vol) N/A VM (KT/V Mean Vol) 06/18/2019 N2N/CCD Import VM (KT/V Mean Vol) N/A KRT/V Renal 06/18/2019 N2N/CCD Import KRT/V Renal N/A SPKT/V Total 06/18/2019 N2N/CCD Import SPKT/V Total N/A NPCR HD Ukm 06/18/2019 N2N/CCD Import NPCR HD [place] N/A Gender 06/18/2019 N2N/CCD Import Gender M Race 06/18/2019 N2N/CCD Import Race H Amputation Factor 06/18/2019 N2N/CCD Import Amputation Factor 0.000 TBW (Kaur) 06/18/2019 N2N/CCD Import TBW (Kaur) 39.99 STDKT/V Total 06/18/2019 N2N/CCD Import STDKT/V Total 2.22 Blood Flow-QWB 06/18/2019 N2N/CCD Import Blood Flow-QWB 450 Vitamin B12 06/18/2019 N2N/CCD Import Vitamin B12 463 211 - 911 Folate 06/18/2019 N2N/CCD Import Folate 6.9 2.8 - 15.6 Lipid Profile 06/18/2019 N2N/CCD Import Cholesterol 103 0 - 199 Triglycerides 44 0 - 149 HDL 41 40 - 60 Chol/HDL Ratio 2.5 Low 3.3 - 5 LDL 53 0 - 99 VLDL-Chol (Calc) 9 0 - 29 CA/Phos W/Products 06/18/2019 N2N/CCD Import Calcium 7.6 Low 8.7 - 10.4 Phosphorus 6.2 High 2.4 - 5.1 Caxphos Product 47.1 21 - 53 C[place]os Corrected 47.1 21 - 53 KT/V By [facility] Panel 06/18/2019 N2N/CCD Import Urr 54 Low 65 - 100 BUN 89 High 9 - 23 BUN - Post 41 High 9 - 23 Iron Panel 06/18/2019 N2N/CCD Import Iron 54 Low 65 - 175 Iron Saturation 21 21 - 49 Tibc 258 250 - 425 Uibc 204 75 - 360 Chem 1 W/O CA/P 06/18/2019 N2N/CCD Import Alk Phos 97 46 - 116 Albumin 4.4 3.2 - 4.8 Chloride 97 Low 99 - 109 Co2 23 20 - 31 LDH, Total 192 120 - 246 Potassium 6.1 High 3.5 - 5.5 Ast/Sgot 21 0 - 34 Protein - Total 7.4 5.7 - 8.2 A/G Ratio 1.5 1 - 2.5 Globulin 3.0 0.9 - 5 CBC With Autodiff 06/18/2019 N2N/CCD Import HCT Calc (HGBX3) 25.2 Low 42.0 - 52.0 Basophils 1.7 Neutrophils 76.2 Lymphocytes 13.8 Monocytes 6.5 Eosinophils 1.8 RDW 19.6 High 11.0 - 15.0 WBC 5.2 4.5 - 11.0 RBC 2.63 Low 4.60 - 6.20 Hematocrit 27.7 Low 42.0 - 52.0 Hemoglobin 8.4 Low 14.0 - 18.0 MCV 105.1 High 80.0 - 100.0 MCH 32.1 High 27.0 - 31.0 MCHC 30.5 Low 32.0 - 36.0 Platelet-CT 285 150 - 400 Neuts-Abs 3947.16 2000 - 8800 Lymphs-Abs 714.84 Low 1100 - 4800 Monos-Abs 336.70 0 - 1100 Basos-Abs 88.06 0 - 400 Eosins-Abs 93.24 0 - 700 Creatinine 06/18/2019 N2N/CCD Import Creatinine 13.81 High 0.70 - 1.30 Glucose 06/18/2019 N2N/CCD Import Glucose 105 High 70 - 99 Alt/SGPT 06/18/2019 N2N/CCD Import Alt/SGPT 29 10 - 49 Sodium 06/18/2019 N2N/CCD Import Sodium 137 132 - 146 STDKDT/V Dialysis 06/18/2019 N2N/CCD Import STDKDT/V 2.22 Dialysis Ekdt/V Dialysis 06/18/2019 N2N/CCD Import Ekdt/V 0.77 Dialysis SPKDT/V Dialysis 06/18/2019 N2N/CCD Import SPKDT/V 0.89 Dialysis Calcium Corrected 06/18/2019 N2N/CCD Import Calcium 7.6 8.7 - 10.4 Corrected Minutes Dialyzed 06/18/2019 N2N/CCD Import Minutes 200 Dialyzed Dialyzer Shen 06/18/2019 N2N/CCD Import Dialyzer Shen 1174 Dialyzer Flow-qd 06/18/2019 N2N/CCD Import Dialyzer 189 Flow-qd Dialyzer 06/18/2019 N2N/CCD Import Dialyzer NxStage Make(MFG) Make(MFG) Dialyzer Model 06/18/2019 N2N/CCD Import Dialyzer Model 170-C Dialyzer Series 06/18/2019 N2N/CCD Import Dialyzer Car Series Blood Flow-QWB 05/24/2019 N2N/CCD Import Blood Flow-QWB 450 Amputation Factor 05/24/2019 N2N/CCD Import Amputation 0.000 Factor Race 05/24/2019 N2N/CCD Import Race H Gender 05/24/2019 N2N/CCD Import Gender M NPCR HD Ukm 05/24/2019 N2N/CCD Import NPCR HD [place]km N/A VM (KT/V Mean 05/24/2019 N2N/CCD Import VM (KT/V Mean N/A Vol) Vol) VT (KT/V TX Vol) 05/24/2019 N2N/CCD Import VT (KT/V TX N/A Vol) Weight (KG) 05/24/2019 N2N/CCD Import Weight (KG) 68.0 Height (Inches) 05/24/2019 N2N/CCD Import Height 62 (Inches) Age Of Patient 05/24/2019 N2N/CCD Import Age Of Patient 33 Calcium Corrected 05/24/2019 N2N/CCD Import Calcium 7.2 8.7 - 10.4 Corrected Dialyzer Shen 05/24/2019 N2N/CCD Import Dialyzer Shen 1174 Dialyzer 05/24/2019 N2N/CCD Import Dialyzer NxStage Make(MFG) Make(MFG) Dialyzer Model 05/24/2019 N2N/CCD Import Dialyzer Model 170-C Dialyzer Series 05/24/2019 N2N/CCD Import Dialyzer Car Series Calcium 05/24/2019 N2N/CCD Import Calcium 7.2 Low 8.7 - 10.4 KT/V By [place] Panel 05/24/2019 N2N/CCD Import BUN 74 High 9 - 23 HIV 4TH 05/23/2019 N2N/CCD Import HIV 4TH Nonreactive Nonreactive Generation Self Generation Ref C Reactive 05/23/2019 N2N/CCD Import C Reactive 80.37 High <8.01 Protein Protein Comprehensive 05/23/2019 N2N/CCD Import Egfr 4.8 >60 Metabolic Panel Non- Ast 20 13-39 Alt 22 7-52 Alkaline Phosphatase 81 34-104 Total Bilirubin 0.60 0.2-1.0 Albumin/Globulin Ratio 1.3 1-3 Globulin 3.2 2-4 Albumin 4.3 3.2-5.2 Total Protein 7.5 6.4-8.9 Calcium 7.1 Low 8.6-10.3 BUN/Creatinine Ratio 6.2 Low 8-20 Creatinine 12.20 High 0.67-1.17 Blood Urea Nitrogen 76 High 6-24 Egfr 5.8 >60 Glucose 110 High 70-100 Anion Gap 13 High 2-11 Co2 Carbon Dioxide 25 22-32 Chloride 98 Low 101-111 Potassium 4.8 3.5-5.0 Sodium 136 135-145 Lactic Acid 05/23/2019 N2N/CCD Import Lactic Acid 0.8 0.5-2.0 Activated Partial 05/23/2019 N2N/CCD Import Activated Partial 34.1 26.0- 38.0 Thrombo Time Thrombo Time Inr 05/23/2019 N2N/CCD Import Inr 1.28 High 0.82-1.09 CBC Auto Diff 05/23/2019 N2N/CCD Import Nucleated Red 0.1 Blood Cells % Basophil % 0.5 Eosinophil % 2.9 Monocyte % 9.8 Lymphocyte % 6.7 Granulocyte % 80.1 Abs Nucleated RBC 0.0 Abs Basophils 0.0 0-0.2 Abs Eosinophils 0.2 0-0.6 Abs Monocytes 0.7 0-0.8 Abs Lymphocytes 0.5 Low 1.0-4.8 Abs Neutrophils 5.9 1.5-7.7 Mean Platelet Volume 7.4 7.4-10.4 Platelet Count 204 150-450 Red Cell Distribution Width 20 High 10-15 Mean Corpuscular HGB Conc 33 31-36 Mean Corpuscular Hemoglobin 32 High 27-31 Mean Corpuscular Volume 97 High 80-94 Hematocrit 22 Low 42-52 Hemoglobin 7.4 Low 14.0-18.0 Red Blood Count 2.31 Low 4.18-5.48 White Blood Count 7.3 3.5-10.8 Age Of Patient 05/17/2019 N2N/CCD Import Age Of Patient 33 Bsa (Dimitrios) 05/17/2019 N2N/CCD Import Bsa (Dimitrios) 1.69 Weight-Post (KG) 05/17/2019 N2N/CCD Import Weight-Post (KG) 66.0 Weight-Pre (KG) 05/17/2019 N2N/CCD Import Weight-Pre (KG) 69.3 Height (Inches) 05/17/2019 N2N/CCD Import Height (Inches) 62 Weight (KG) 05/17/2019 N2N/CCD Import Weight (KG) 68.0 # Days/WK Treated 05/17/2019 N2N/CCD Import # Days/WK Treated 4 2 - 3 VT (KT/V TX Vol) 05/17/2019 N2N/CCD Import VT (KT/V TX Vol) N/A VM (KT/V Mean Vol) 05/17/2019 N2N/CCD Import VM (KT/V Mean N/A Vol) KRT/V Renal 05/17/2019 N2N/CCD Import KRT/V Renal N/A SPKT/V Total 05/17/2019 N2N/CCD Import SPKT/V Total N/A NPCR HD Ukm 05/17/2019 N2N/CCD Import NPCR HD [facility] N/A Gender 05/17/2019 N2N/CCD Import Gender M Race 05/17/2019 N2N/CCD Import Race H Amputation Factor 05/17/2019 N2N/CCD Import Amputation Factor 0.000 TBW (Kaur) 05/17/2019 N2N/CCD Import TBW (Kaur) 38.41 STDKT/V Total 05/17/2019 N2N/CCD Import STDKT/V Total 2.35 Blood Flow-QWB 05/17/2019 N2N/CCD Import Blood Flow-QWB 450 Ferritin 05/17/2019 N2N/CCD Import Ferritin 590 High 22 - 322 CA/Phos W/Products 05/17/2019 N2N/CCD Import Calcium 7.4 Low 8.7 - 10.4 Phosphorus 4.7 2.4 - 5.1 C[place]os Product 34.8 21 - 53 [place] Corrected 34.8 21 - 53 KT/V By [facility] Panel 05/17/2019 N2N/CCD Import Urr 54 Low 65 - 100 BUN 68 High 9 - 23 BUN - Post 31 High 9 - 23 Iron Panel 05/17/2019 N2N/CCD Import Iron 85 65 - 175 Iron Saturation 37 21 - 49 Tibc 228 Low 250 - 425 Uibc 143 75 - 360 Chem 1 W/O CA/P 05/17/2019 N2N/CCD Import Alk Phos 102 46 - 116 Albumin 4.6 3.2 - 4.8 Chloride 100 99 - 109 Co2 22 20 - 31 LDH, Total 239 120 - 246 Potassium 5.2 3.5 - 5.5 Ast/Sgot 22 0 - 34 Protein - Total 7.4 5.7 - 8.2 A/G Ratio 1.6 1 - 2.5 Globulin 2.8 0.9 - 5 CBC With Autodiff 05/17/2019 N2N/CCD Import MCH 32.5 High 27.0 - 31.0 MCHC 32.6 32.0 - 36.0 Platelet-CT 168 150 - 400 Neuts-Abs 2754.87 2000 - 8800 Lymphs-Abs 725.81 Low 1100 - 4800 Monos-Abs 340.85 0 - 1100 Eosins-Abs 156.39 0 - 700 HCT Calc (HGBX3) 25.5 Low 42.0 - 52.0 Basos-Abs 28.07 0 - 400 Basophils 0.7 Neutrophils 68.7 Lymphocytes 18.1 Monocytes 8.5 Eosinophils 3.9 RDW 17.8 High 11.0 - 15.0 WBC 4.0 Low 4.5 - 11.0 RBC 2.63 Low 4.60 - 6.20 Hematocrit 26.2 Low 42.0 - 52.0 Hemoglobin 8.5 Low 14.0 - 18.0 MCV 99.7 80.0 - 100.0 Creatinine 05/17/2019 N2N/CCD Import Creatinine 11.24 High 0.70 - 1.30 Glucose 05/17/2019 N2N/CCD Import Glucose 115 High 70 - 99 Alt/SGPT 05/17/2019 N2N/CCD Import Alt/SGPT 26 10 - 49 Sodium 05/17/2019 N2N/CCD Import Sodium 138 132 - 146 Dialyzer Series 05/17/2019 N2N/CCD Import Dialyzer Series Car Dialyzer Model 05/17/2019 N2N/CCD Import Dialyzer Model 170-C Dialyzer 05/17/2019 N2N/CCD Import Dialyzer NxStage Make(MFG) Make(MFG) Dialyzer Flow-qd 05/17/2019 N2N/CCD Import Dialyzer Flow-qd 189 Dialyzer Shen 05/17/2019 N2N/CCD Import Dialyzer Shen 1174 Minutes Dialyzed 05/17/2019 N2N/CCD Import Minutes Dialyzed 205 Calcium Corrected 05/17/2019 N2N/CCD Import Calcium Corrected 7.4 8.7 - 10.4 SPKDT/V Dialysis 05/17/2019 N2N/CCD Import SPKDT/V Dialysis 0.97 Ekdt/V Dialysis 05/17/2019 N2N/CCD Import Ekdt/V Dialysis 0.84 STDKDT/V Dialysis 05/17/2019 N2N/CCD Import STDKDT/V Dialysis 2.35 Vitamin B6 Level 05/11/2019 N2N/CCD Import Pyridoxal 14 5-50 5-Phosphate Pyridoxic Acid 466 Abnormal 3-30 Ast Redraw 05/08/2019 N2N/CCD Import Ast Redraw 22 13-39 Potassium Redraw 05/08/2019 N2N/CCD Import Potassium Redraw 5.2 High 3.5- 5.0 Ast Redraw 05/08/2019 N2N/CCD Import Ast Redraw TNP 13-39 Potassium Redraw 05/08/2019 N2N/CCD Import Potassium Redraw TNP 3.5-5.0 Magnesium 05/08/2019 N2N/CCD Import Magnesium 2.1 1.9-2.7 Comprehensive 05/08/2019 N2N/CCD Import Egfr 5.8 >60 Metabolic Panel Swazi Egfr Non- 4.8 >60 Ast TNP 13-39 Alt 21 7-52 Alkaline Phosphatase 82 34-104 Total Bilirubin 0.60 0.2-1.0 Albumin/Globulin Ratio 1.6 1-3 Globulin 2.9 2-4 Albumin 4.7 3.2-5.2 Total Protein 7.6 6.4-8.9 Calcium 8.1 Low 8.6-10.3 BUN/Creatinine Ratio 5.9 Low 8-20 Creatinine 12.27 High 0.67-1.17 Blood Urea Nitrogen 73 High 6-24 Glucose 75 70-100 Anion Gap 16 High 2-11 Co2 Carbon Dioxide 22 22-32 Chloride 99 Low 101-111 Potassium TNP 3.5-5.0 Sodium 137 135-145 CBC Auto Diff 05/08/2019 N2N/CCD Import Abs Neutrophils 3.6 1.5-7.7 Mean Platelet Volume 8.8 7.4-10.4 Platelet Count 196 150-450 Red Cell Distribution Width 19 High 10-15 Nucleated Red Blood Cells % 0.1 Basophil % 1.0 Eosinophil % 4.8 Monocyte % 11.6 Lymphocyte % 13.2 Granulocyte % 69.4 Abs Nucleated RBC 0.0 Abs Basophils 0.1 0-0.2 Abs Eosinophils 0.2 0-0.6 Abs Monocytes 0.6 0-0.8 Abs Lymphocytes 0.7 Low 1.0-4.8 Mean Corpuscular HGB Conc 32 31-36 Mean Corpuscular Hemoglobin 32 High 27-31 Mean Corpuscular Volume 102 High 80-94 Hematocrit 27 Low 42-52 Hemoglobin 8.6 Low 14.0-18.0 Red Blood Count 2.68 Low 4.18-5.48 White Blood Count 5.2 3.5-10.8 CBC Auto Diff 05/06/2019 N2N/CCD Import Nucleated Red Blood Cells % 0.0 Basophil % 1.1 Eosinophil % 4.5 Monocyte % 14.6 Lymphocyte % 13.7 Granulocyte % 66.1 Abs Nucleated RBC 0.0 Abs Basophils 0.0 0-0.2 Abs Eosinophils 0.2 0-0.6 Abs Monocytes 0.6 0-0.8 Abs Lymphocytes 0.6 Low 1.0-4.8 Abs Neutrophils 2.8 1.5-7.7 Mean Platelet Volume 8.5 7.4-10.4 Platelet Count 193 150-450 Red Cell Distribution Width 17 High 10-15 Mean Corpuscular HGB Conc 33 31-36 Mean Corpuscular Hemoglobin 32 High 27-31 Mean Corpuscular Volume 95 High 80-94 Hematocrit 27 Low 42-52 Hemoglobin 9.0 Low 14.0-18.0 Red Blood Count 2.83 Low 4.18-5.48 White Blood Count 4.2 3.5-10.8 Comprehensive Metabolic 05/06/2019 N2N/CCD Import Egfr 10.0 >60 Panel [place] Egfr Non- 8.3 >60 Ast 20 13-39 Alt 18 7-52 Alkaline Phosphatase 74 34-104 Total Bilirubin 0.60 0.2-1.0 Albumin/Globulin Ratio 1.4 1-3 Globulin 3.2 2-4 Albumin 4.4 3.2-5.2 Total Protein 7.6 6.4-8.9 Calcium 8.3 Low 8.6-10.3 BUN/Creatinine Ratio 4.6 Low 8-20 Creatinine 7.59 High 0.67-1.17 Blood Urea Nitrogen 35 High 6-24 Glucose 97 70-100 Anion Gap 12 High 2-11 Co2 Carbon Dioxide 28 22-32 Chloride 100 Low 101-111 Potassium 4.4 3.5-5.0 Sodium 140 135-145 Magnesium 05/06/2019 N2N/CCD Import Magnesium 1.9 1.9-2.7 CBC Auto Diff 05/05/2019 N2N/CCD Import Mean Platelet Volume 9.2 7.4- 10.4 Platelet Count 190 150-450 Red Cell Distribution Width 17 High 10-15 Mean Corpuscular HGB Conc 33 31-36 Mean Corpuscular Hemoglobin 32 High 27-31 Mean Corpuscular Volume 95 High 80-94 Hematocrit 29 Low 42-52 Hemoglobin 9.7 Low 14.0-18.0 Red Blood Count 3.08 Low 4.18-5.48 White Blood Count 4.4 3.5-10.8 Manual Differential 05/05/2019 N2N/CCD Import Anisocytosis 1+ Eosinophils % 8.0 Monocytes % 10.0 Lymphocytes % 22.0 Neutrophil % 60.0 Basic Metabolic Panel 05/05/2019 N2N/CCD Import Egfr Non- 5.1 > 60 [place] Calcium 7.9 Low 8.6-10.3 BUN/Creatinine Ratio 4.7 Low 8-20 Creatinine 11.57 High 0.67-1.17 Blood Urea Nitrogen 54 High 6-24 Glucose 124 High 70-100 Anion Gap 14 High 2-11 Co2 Carbon Dioxide 24 22-32 Chloride 99 Low 101-111 Potassium 5.1 High 3.5-5.0 Sodium 137 135-145 Egfr 6.2 >60 Magnesium 05/05/2019 N2N/CCD Import Magnesium 2.1 1.9-2.7 Vitamin B12 05/05/2019 N2N/CCD Import Vitamin B12 388 180-914 Hemoglobin A1c 05/05/2019 N2N/CCD Import Hemoglobin A1c 5.9 High 4.0-5.6 Lactic Acid 05/04/2019 N2N/CCD Import Lactic Acid 0.6 0.5-2.0 Liver Panel 05/04/2019 N2N/CCD Import Alt 14 7-52 Alkaline Phosphatase 69 34-104 Indirect Bilirubin 0.9 0.3-1.0 Direct Bilirubin 0.20 High 0.03-0.18 Total Bilirubin 1.10 High 0.2-1.0 Albumin/Globulin Ratio 1.4 1-3 Globulin 3.1 2-4 Albumin 4.2 3.2-5.2 Total Protein 7.3 6.4-8.9 Ast 17 13-39 Basic Metabolic Panel 05/04/2019 N2N/[facility] Systems Import Potassium 4.6 3.5-5.0 Egfr 8.3 >60 Egfr Non- 6.8 >60 Calcium 8.5 Low 8.6-10.3 BUN/Creatinine Ratio 3.9 Low 8-20 Creatinine 8.97 High 0.67-1.17 Blood Urea Nitrogen 35 High 6-24 Glucose 92 70-100 Anion Gap 10 2-11 Co2 Carbon Dioxide 28 22-32 Chloride 100 Low 101-111 Sodium 138 135-145 CBC Auto Diff 05/04/2019 N2N/CCD Import White Blood Count 3.2 Low 3.5- 10.8 Nucleated Red Blood Cells % 0.1 Basophil % 2.0 Eosinophil % 5.7 Red Blood Count 2.78 Low 4.18-5.48 Monocyte % 15.6 Lymphocyte % 22.3 Granulocyte % 54.4 Abs Nucleated RBC 0.0 Abs Basophils 0.1 0-0.2 Abs Eosinophils 0.2 0-0.6 Abs Monocytes 0.5 0-0.8 Abs Lymphocytes 0.7 Low 1.0-4.8 Abs Neutrophils 1.7 1.5-7.7 Mean Platelet Volume 8.2 7.4-10.4 Platelet Count 164 150-450 Red Cell Distribution Width 17 High 10-15 Mean Corpuscular HGB Conc 33 31-36 Mean Corpuscular Hemoglobin 32 High 27-31 Mean Corpuscular Volume 95 High 80-94 Hematocrit 26 Low 42-52 Hemoglobin 8.8 Low 14.0-18.0 CBC Auto Diff 05/03/2019 N2N/CCD Import Nucleated Red Blood Cells % 0.0 Basophil % 1.3 Eosinophil % 4.8 Monocyte % 11.0 Lymphocyte % 14.3 Granulocyte % 68.6 Abs Nucleated RBC 0.0 Abs Basophils 0.1 0-0.2 Abs Eosinophils 0.2 0-0.6 Abs Monocytes 0.6 0-0.8 Abs Lymphocytes 0.7 Low 1.0-4.8 Abs Neutrophils 3.5 1.5-7.7 Mean Platelet Volume 8.3 7.4-10.4 Platelet Count 177 150-450 Red Cell Distribution Width 18 High 10-15 Mean Corpuscular HGB Conc 33 31-36 Mean Corpuscular Hemoglobin 31 27-31 Mean Corpuscular Volume 94 80-94 Hematocrit 27 Low 42-52 Hemoglobin 9.1 Low 14.0-18.0 Red Blood Count 2.89 Low 4.18-5.48 White Blood Count 5.2 3.5-10.8 Iron Iron Bind 05/03/2019 N2N/CCD Import Total Iron Binding 262 250- 450 Cap Capacity Unsaturated Iron Binding TNP Iron TNP 50-212 % Iron Saturation TNP 15-55 Transferrin 187 Low 203-362 Ferritin 05/03/2019 N2N/CCD Import Ferritin 619.0 High 24-336 Iron 05/03/2019 N2N/CCD Import Iron 83 50-212 Comprehensive 05/02/2019 N2N/CCD Import BUN/Creatinine 4.8 Low 8-20 Metabolic Panel Ratio Creatinine 13.20 High 0.67-1.17 Blood Urea Nitrogen 64 High 6-24 Glucose 72 70-100 Anion Gap 12 High 2-11 Co2 Carbon Dioxide 27 22-32 Chloride 97 Low 101-111 Potassium 4.7 3.5-5.0 Sodium 136 135-145 Egfr 5.3 >60 Egfr Non- 4.4 >60 Ast 20 13-39 Alt 18 7-52 Alkaline Phosphatase 81 34-104 Total Bilirubin 0.70 0.2-1.0 Albumin/Globulin Ratio 1.4 1-3 Globulin 3.2 2-4 Albumin 4.6 3.2-5.2 Total Protein 7.8 6.4-8.9 Calcium 7.3 Low 8.6-10.3 Lipase 05/02/2019 N2N/CCD Import Lipase 117 High 11.0-82.0 C Reactive 05/02/2019 N2N/CCD Import C Reactive Protein 33.47 High <8.01 Protein CBC Auto Diff 04/30/2019 N2N/CCD Import Nucleated Red 0.0 Blood Cells % Basophil % 1.2 Eosinophil % 3.7 Monocyte % 9.3 Lymphocyte % 17.4 Granulocyte % 68.4 Abs Nucleated RBC 0.0 Abs Basophils 0.1 0-0.2 Abs Eosinophils 0.2 0-0.6 Abs Monocytes 0.4 0-0.8 Abs Lymphocytes 0.8 Low 1.0-4.8 Abs Neutrophils 3.1 1.5-7.7 Mean Platelet Volume 8.1 7.4-10.4 Platelet Count 160 150-450 Red Cell Distribution Width 18 High 10-15 Mean Corpuscular HGB Conc 33 31-36 Mean Corpuscular Hemoglobin 32 High 27-31 Mean Corpuscular Volume 96 High 80-94 Hematocrit 27 Low 42-52 Hemoglobin 8.8 Low 14.0-18.0 Red Blood Count 2.77 Low 4.18-5.48 White Blood Count 4.6 3.5-10.8 Comprehensive Metabolic 04/30/2019 N2N/CCD Import Egfr 4.1 >60 Panel [place] Egfr Non- 3.4 >60 Ast 36 13-39 Alt 23 7-52 Alkaline Phosphatase 88 34-104 Total Bilirubin 0.50 0.2-1.0 Albumin/Globulin Ratio 1.5 1-3 Globulin 3.1 2-4 Albumin 4.6 3.2-5.2 Total Protein 7.7 6.4-8.9 Calcium 7.0 Low 8.6-10.3 BUN/Creatinine Ratio 5.3 Low 8-20 Creatinine 16.38 High 0.67-1.17 Blood Urea Nitrogen 87 High 6-24 Glucose 77 70-100 Anion Gap 15 High 2-11 Co2 Carbon Dioxide 24 22-32 Chloride 99 Low 101-111 Potassium 5.0 3.5-5.0 Sodium 138 135-145 Lipase 04/30/2019 N2N/CCD Import Lipase 127 High 11.0-82.0 C Reactive Protein 04/30/2019 N2N/CCD Import C Reactive 18.16 High <8.01 Protein Lactic Acid 04/30/2019 N2N/CCD Import Lactic Acid 0.7 0.5-2.0 1 [place] Severe Sepsis and Septic Shock Management Bundle Measure requires all lactic acids initially measuring >2.0 mmol/L be repeated. 2 Because ethnic data is not always readily available, this report includes an eGFR for both -Americans and non- Americans. The National Kidney Disease Education Program (NKDEP) does not endorse the use of the MDRD equation for patients that are not between the ages of 18 and 70, are , have extremes of body size, muscle mass, or nutritional status, or are non- or non-. According to the National Kidney Foundation, irrespective of diagnosis, the stage of the disease is based on the level of kidney function: Stage Description GFR(mL/min/1.73 m(2)) 1 Kidney damage with normal or decreased GFR 90 2 Kidney damage with mild decrease in GFR 60-89 3 Moderate decrease in GFR 30-59 4 Severe decrease in GFR 15-29 5 Kidney failure <15 (or dialysis) 3 Troponin-I testing on Plasma Separator Tubes (PST) has a known false positive rate of 0.20-0.40%. All positive troponins reflex immediately to secondary confirmatory testing. Using the [employer] DxI 800 Access Immunoassay systems, the 99th percentile upper reference limit was demonstrated to be < 0.03 ng/mL. 4 Because ethnic data is not always readily available, this report includes an eGFR for both -Americans and non- Americans. The National Kidney Disease Education Program (NKDEP) does not endorse the use of the MDRD equation for patients that are not between the ages of 18 and 70, are , have extremes of body size, muscle mass, or nutritional status, or are non- or non-. According to the National Kidney Foundation, irrespective of diagnosis, the stage of the disease is based on the level of kidney function: Stage Description GFR(mL/min/1.73 m(2)) 1 Kidney damage with normal or decreased GFR 90 2 Kidney damage with mild decrease in GFR 60-89 3 Moderate decrease in GFR 30-59 4 Severe decrease in GFR 15-29 5 Kidney failure <15 (or dialysis) 5 Standard intensity warfarin therapeutic range: 2.0-3.0 High intensity warfarin therapeutic range: 2.5-3.5 6 SEE RESULT BELOW Name: MARICHUY HATFIELD : [address]: Shahana Ocasio MD Acct: [id number] Unit: [id number] AGE: 33 Location: ED Re07/20/19 SEX: M Status: REG ER SPEC: [id number] MOHIT: 07/20/19-[address]: Bernard Belle NP REQ: [id number] RECD: 07/20/19 STATUS: LINSEY CALLE DR: Shahana Hameed MD _ SOURCE: STOOL SPDESC: ORDERED: Occult Bl, Diag Procedure Result Reported Site Stool Occult Blood (1) Final 07/20/19- 2210 ML Stool Occult Blood Negative Collection Date (1) 07/20/19 * ML - Main Lab . END OF REPORT DEPARTMENT OF PATHOLOGY, [address] [place] [address] Paulo Marquez M.D. Director [facility] # [id number] 7 Because ethnic data is not always readily available, this report includes an eGFR for both -Americans and non- Americans. The National Kidney Disease Education Program (NKDEP) does not endorse the use of the MDRD equation for patients that are not between the ages of 18 and 70, are , have extremes of body size, muscle mass, or nutritional status, or are non- or non-. According to the National Kidney Foundation, irrespective of diagnosis, the stage of the disease is based on the level of kidney function: Stage Description GFR(mL/min/1.73 m(2)) 1 Kidney damage with normal or decreased GFR 90 2 Kidney damage with mild decrease in GFR 60-89 3 Moderate decrease in GFR 30-59 4 Severe decrease in GFR 15-29 5 Kidney failure <15 (or dialysis) 8 Normal Range 180 to 914 Indeterminate Range 145 to 180 Deficient Range <145 9 Therapeutic target for the treatment of diabetes mellitus patients is <7% HBA1C, and in selective patients <6.0%. Please refer to [place] [employer] Association diabetic care guidelines for further information. 10 Desirable: <150 Borderline High: 150-199 High: 200-499 Very High: >500 11 Desirable: <200 Borderline High: 200-239 High: >239 12 Low: <40 Desirable: 40-60 High: >60 13 Desirable: <100 Near Optimal: 100-129 Borderline High: 130-159 High: 160-189 Very High: >189 Procedures Date Code Description Status 09/29/2019 13865 [facility] Per Full Month 20 Yrs Completed 09/07/2019 47212 Sleep Study Unattended,HRT Rate,Oxygen Sat,Resp Completed Effort/Airflow 08/29/2019 50562 [facility] Per Full Month 20 Yrs Completed 07/29/2019 64626 [facility] Per Full Month 20 Yrs Completed Medical Devices Description No Information Available Encounters Type Date Location Provider Dx Diagnosis Office Visit 09/12/2019 [facility] G47.33 Obstructive sleep 2:00p [facility] Liu apnea (adult) [facility] (pediatric) R53.83 Other fatigue Office Visit 09/07/2019 12:00p [facility] Yasmin Haynes, R06.83 [facility] R53.83 Other fatigue Office Visit 07/04/2019 3:00p [facility] Internal Alyson Hameed MD N18.6 End stage renal Medicine - [address] disease Z99.2 Dependence on renal dialysis D63.1 Anemia in chronic kidney disease Z13.1 Encounter for screening for diabetes mellitus G62.9 Polyneuropathy, unspecified Z13.220 Encounter for screening for lipoid disorders Z23 Encounter for immunization G47.30 Sleep apnea, unspecified R03.0 Elevated blood-pressure reading, w/o diagnosis of htn Office Visit 05/08/2019 10:00a [facility] Alistair T18.2xxA Foreign body in Assoc,JUAN Katz stomach, Hospitalists initial encounter N18.6 End stage renal disease Z99.2 Dependence on renal dialysis D63.1 Anemia in chronic kidney disease Office Visit 05/07/2019 10:00a [facility] Al[place] R10.9 Unspecified Assoc,JUAN Katz abdominal pain Hospitalists N18.6 End stage renal disease Z99.2 Dependence on renal dialysis Office Visit 05/06/2019 9:59a [facility] Alistair R10.9 Unspecified Assoc,JUAN Katz abdominal pain Hospitalists G62.9 Polyneuropathy, unspecified N18.6 End stage renal disease Z99.2 Dependence on renal dialysis Office Visit 05/05/2019 9:59a [facility] Al[place]air R10.9 Unspecified Assoc,JUAN Katz abdominal pain Hospitalists G62.9 Polyneuropathy, unspecified N18.6 End stage renal disease Z99.2 Dependence on renal dialysis Office Visit 05/04/2019 9:59a [facility] [place]air R10.9 Unspecified Assoc,JUAN Katz abdominal pain Hospitalists N18.6 End stage renal disease Z99.2 Dependence on renal dialysis D63.1 Anemia in chronic kidney disease Office Visit 05/03/2019 7:00a Surgical Nathanael Garibay R10.11 Right [facility] quadrant pain R10.31 Right lower quadrant pain R11.2 Nausea with vomiting, unspecified N18.6 End stage renal disease Office Visit 05/03/2019 [facility] Gemaonelia Andrea, R10.9 Unspecified 9:58a Assoctiffanie M.D. abdominal pain Hospitalists N18.6 End stage renal disease Z99.2 Dependence on renal dialysis Assessments Date Code Description Provider 10/17/2019 M54.5 Low back pain Cony Quinn DO 09/29/2019 N18.6 End stage renal disease Rosa Rizvi MD 09/12/2019 G47.33 Obstructive sleep apnea (adult) Betty Liu NP (pediatric) 09/12/2019 R53.83 Other fatigue Betty Liu, [place] 09/07/2019 G47.33 Obstructive sleep apnea (adult) Yasmin Haynes MD (pediatric) 09/07/2019 R06.83 Snoring Yasmin Haynes MD 09/07/2019 R53.83 Other fatigue Yasmin Haynes MD 08/29/2019 N18.6 End stage renal disease Sharla Bella MD 08/25/2019 R07.9 Chest pain, unspecified Jose Pisano MD 08/25/2019 Z99.2 Dependence on renal dialysis Jose Pisano MD 08/25/2019 N18.6 End stage renal disease Jose Pisano MD 08/25/2019 G47.00 Insomnia, unspecified Jose Pisano MD 07/29/2019 N18.6 End stage renal disease Sharla Bella MD 07/04/2019 N18.6 End stage renal disease Alyson Hameed MD 07/04/2019 Z99.2 Dependence on renal dialysis Alyson Hameed MD 07/04/2019 D63.1 Anemia in chronic kidney disease Alyson Hameed MD 07/04/2019 Z13.1 Encounter for screening for diabetes Alyson Hameed MD mellitus 07/04/2019 G62.9 Polyneuropathy, unspecified Alyson Hameed MD 07/04/2019 Z13.220 Encounter for screening for lipoid Alyson Hameed MD disorders 07/04/2019 Z23 Encounter for immunization Alyson Hameed MD 07/04/2019 G47.30 Sleep apnea, unspecified Alyson Hameed MD 07/04/2019 R03.0 Elevated blood-pressure reading, without Alyson Hameed MD diagnosis of hypertension 05/08/2019 T18.2xxA Foreign body in stomach, initial JAUN Maldonado encounter 05/08/2019 N18.6 End stage renal disease JUAN Maldonado 05/08/2019 Z99.2 Dependence on renal dialysis JUAN Maldonado 05/08/2019 D63.1 Anemia in chronic kidney disease JUAN Maldonado 05/07/2019 R10.9 Unspecified abdominal pain JUAN Maldonado 05/07/2019 N18.6 End stage renal disease JUAN Maldonado 05/07/2019 Z99.2 Dependence on renal dialysis JUAN Maldonado 05/06/2019 R10.9 Unspecified abdominal pain JUAN Maldonado 05/06/2019 G62.9 Polyneuropathy, unspecified Al[place]air Desir, [place] 05/06/2019 N18.6 End stage renal disease Alistair Desir, JUAN 05/06/2019 Z99.2 Dependence on renal dialysis JUAN Maldonado 05/05/2019 R10.9 Unspecified abdominal pain JUAN Maldonado 05/05/2019 G62.9 Polyneuropathy, unspecified Alistair Desir PA 05/05/2019 N18.6 End stage renal disease Alistair Desir, JUAN 05/05/2019 Z99.2 Dependence on renal dialysis JUAN Maldonado 05/04/2019 R10.9 Unspecified abdominal pain JUAN Maldonado 05/04/2019 N18.6 End stage renal disease Alistair Desir, JUAN 05/04/2019 Z99.2 Dependence on renal dialysis JUAN Maldonado 05/04/2019 D63.1 Anemia in chronic kidney disease JUAN Maldonado 05/03/2019 R10.11 Right upper quadrant pain Nathanael [place], JUAN 05/03/2019 R10.9 Unspecified abdominal pain Gema Andrea M.D. 05/03/2019 R10.31 Right lower quadrant pain JUAN Dowling 05/03/2019 N18.6 End stage renal disease Gema Andrea M.D. 05/03/2019 R11.2 Nausea with vomiting, unspecified JUAN Dowling 05/03/2019 Z99.2 Dependence on renal dialysis Gema Andrea M.D. 05/03/2019 N18.6 End stage renal disease JUAN Dowling Plan of Treatment Future Appointment(s):11/20/2019 2:00 pm - Cony Quinn DO at [facility] Internal Medicine - [address]/19/2019 1:00 pm - Ica ECHO Schedule at [facility]10/18/2019 12:00 pm - Rosa Rizvi MD at [facility] Wudfwguyao77/08/2020 10:00 am - Carlitos Pantoja M.D. at [facility] Zyoxzd2511/07/2019 1:30 pm - Betty Alexa, CRATE LINER at [facility]10/17/2019 - Cony Quinn, DOM54.5 Low back painNew Medication:Tramadol HCL 50 mg - tab twice a day as neededNew Xrays:SP Lumbar Ap//Lat 2-3 Views, Scheduled: New Therapy:Physical TherapyComments:Please make an appointment for PT Tramadol is not for mcfp useFollow up:1 month Functional Status Description No Information Available Mental Status Description No Information Available Referrals Refer to Reason for Referral Status Appt Date Yasmin Haynes MD sleep apnea detected during general anaethesia Sent 04/[address] [place] [id number] [phone]
--- OUTSIDE RECORDS SUMMARY | 2019-11-08 17:47 | XMS REPORT | Continuity of Care Document ---
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 Alyson Hameed MD - Student in an Care Team Information Ditching Machine Operating Engineer [phone] Organized Health Care Education/Training Program Problems Active [...] 08/25/2019 End stage renal failure on dialysis Jsoe Pisano MD Onset: 08/25/2019 Chest pain Jose [...] Use Denies Drug Use Smoking Status Reviewed: 09/12/19 Patient is a former smoker Exercise Type/Frequency [...] Medications SIG Qnty Indications Ordering Date Provider Zolpidem Tartrate 1 tabs by mouth at 10tabs G47.00 Jose Pisano MD 2018 5mg bedtime as needed Tablets for insomnia Tramadol HCL take every 12 hours 6tabs R07.9 Jose Pisano MD 08/25/2019 50mg as needed for pain Tablets Tramadol HCL take every 8 hours 12tabs Jose Pisano MD 08/22/2019 50mg as needed for pain Tablets Gabapentin 1 capsule three Unknown 100mg times daily. Capsules Calcitrol 2mcg take 1 PO twice Unknown daily Calcium Carbonate 3 tablets PO tid Unknown 650 MG Epogen 84092 Units inject subq twice Unknown weekly Heparin Sodium 0.2 mls with every Unknown (Porcine) dialysis tx [id number] Solution Vitamin E 1 tablet (1000 mg) Unknown twice daily Prednisone 4 tablets po 24 Unknown 50mg hours prior to Tablets procedure that administers IV contrast dye Benadryl Allergy take benadryl 50 mg Unknown 25mg by mouth 1 hour Tablets before contrast injection Melatonin ER take 1 tab nightly Unknown 10mg as needed for Tablets ER sleep. Immunizations CPT Code Status Date Vaccine Lot # [id number] Given 07/04/2019 Tetanus And Diptheria (Td) For Adult Use [id number] Preservative Free Vital Signs Date Vital Result Comment 09/12/2019 1:58pm Height 62 inches 5'2" Weight 159.00 lb Heart Rate 91 /min BP Systolic 130 mmHg BP Diastolic 80 mmHg O2 % BldC Oximetry 95 % BMI (Body Mass Index) 29.1 kg/m2 09/07/2019 10:32am Height 62 inches 5'2" Weight 155.50 lb Heart Rate 94 /min BP Systolic Sitting 142 mmHg Rue reg cuff BP Diastolic Sitting 84 mmHg Rue reg cuff O2 % BldC Oximetry 98 % On Ra BMI (Body Mass Index) 28.4 kg/m2 Neck Circumference in inches 16.5 Results Test Acquired Date Facility Test Result H/L Range Note Laboratory test 2019 [facility] Lactic Acid 0.6 mmol/L Normal 0.5-2.[address] [place] [address] [phone] CBC Auto Diff 2019 [facility] White Blood 5.6 10^3/uL Normal 3.5-10.[address] [place] [address] [phone] Red Blood Count 3.09 10^6/uL Low 4.18-5.48 [...] Blood Cells % 0.0 Comp Metabolic 2019 [facility] Sodium 138 mmol/L Normal 135-145 Panel [address] [place] [address] [phone] Chloride 96 mmol/L Low 101-111 Co2 Carbon [...] 17 U/L Normal 13-39 Laboratory test 2019 [facility] Troponin-I (TnI) 0.01 ng/ mL <0.03 [address] [place] [address] [phone] B-Type Natriuretic Peptide BNP 148 pg/mL High <=100 CBC Auto 07/20/2019 [facility] White Blood 4.2 10^3/uL Normal 3.5-10.[address] [place] [address] [phone] Red Blood Count 2.91 10^6/uL Low 4.18-5.48 [...] Blood Cells % 0.0 Comp Metabolic 07/20/2019 [facility] Sodium 136 mmol/L Normal 135-[address] [place], [place] [id number] [phone] Potassium 4.4 mmol/L Normal 3.5-5.0 Chloride 94 [...] Egfr 4.0 >60 4 Laboratory test 07/20/2019 [facility] Lipase 37 U/L Normal 11.0-82.0 finding [address] [place], [place] [id number] [phone] C Reactive Protein 109.98 mg/L High <8.01 Inr/Protime 07/20/2019 [facility] Inr 1.15 High 0.82-1.[address] [place] [address] [phone] Stool Occult 07/20/2019 [facility] Stool SEE RESULT [address] [place] [address] Blood, [phone] Diag CBC Auto Diff 07/04/2019 [facility] White 6.7 Normal 3.5-10.8 DRIVE Blood 10^3/[place] [address] Count [phone] Red Blood Count 2.86 10^6/uL Low 4.18-5.48 [...] Blood Cells % 0.1 Comp Metabolic 07/04/2019 [facility] Sodium 139 mmol/L Normal 135-[address] [place] [address] [phone] Potassium 4.4 mmol/L Normal 3.5-5.0 Chloride 98 [...] Egfr 4.8 >60 7 Vitamin B12 07/04/2019 [facility] Vitamin B12 397 pg/mL Normal 180-914 [address] F[address] [place] [place] [address] [phone] Folic Acid (Folate) 13.53 ng/mL >3.99 Laboratory 07/04/2019 [facility] Hemoglobin A1c 5.1 % Normal 4.0-5.6 9 test finding [address] (Glyco HGB) [place] [address] [phone] Lipid Profile 07/04/2019 [facility] Triglycerides 92 10 (Trig/Chol/HDL [address] mg/dL ) [place] [address] [phone] Cholesterol 109 mg/dL 11 HDL Cholesterol 39.7 mg/dL 12 LDL Cholesterol 51 mg/dL 13 Phosphorus 06/21/2019 N2N/CCD Import Phosphorus 5.7 High 2.4 - 5.1 Potassium 06/21/2019 N2N/CCD Import Potassium 4.4 3.5 - 5.5 Age Of Patient 06/18/2019 N2N/CCD Import Age Of Patient 33 Bsa (Dimitrios) 06/18/2019 N2N/CCD Import Bsa (Dimitrios) 1.70 Weight-Post (KG) 06/18/2019 N2N/CCD Import Weight-Post [...] HD [place] 06/18/2019 N2N/CCD Import NPCR HD [place] N/A Gender 06/18/2019 N2N/CCD Import Gender M [...] Corrected 47.1 21 - 53 KT/V By [place] Panel 06/18/2019 N2N/CCD Import Urr 54 Low [...] 33 Bsa (Dimitrios) 05/17/2019 N2N/CCD Import Bsa (Burke) 1.69 Weight-Post (KG) 05/17/2019 N2N/CCD Import Weight-Post [...] N2N/CCD Import SPKT/V Total N/A NPCR HD [place] 05/17/2019 N2N/CCD Import NPCR HD [facility] N/A Gender 05/17/2019 N2N/CCD Import Gender M [...] Corrected 34.8 21 - 53 KT/V By [place] Panel 05/17/2019 N2N/CCD Import Urr 54 Low [...] N2N/CCD Import Egfr 5.8 >60 Metabolic Panel [place] Egfr Non- 4.8 >60 Ast TNP 13-39 [...] 05/06/2019 N2N/CCD Import Egfr 10.0 >60 Panel [place] Egfr Non- 8.3 >60 Ast 20 13-39 [...] Magnesium 05/06/2019 N2N/CCD Import Magnesium 1.9 1.9-2.7 Hemoglobin A1c 05/05/2019 N2N/CCD Import Hemoglobin A1c 5.9 High 4.0-5.6 Vitamin B12 05/05/2019 N2N/CCD Import Vitamin B12 388 180-914 Magnesium 05/05/2019 N2N/CCD Import Magnesium 2.1 1.9-2.7 Basic Metabolic 05/05/2019 N2N/CCD Import Egfr Non- 5.1 >60 Panel [place] Calcium 7.9 Low 8.6-10.3 BUN/Creatinine Ratio 4.7 Low 8-20 Creatinine 11.57 High 0.67-1.17 Blood Urea Nitrogen 54 High 6-24 Glucose 124 High 70-100 Anion Gap 14 High 2-11 Co2 Carbon Dioxide 24 22-32 Chloride 99 Low 101-111 Potassium 5.1 High 3.5-5.0 Sodium 137 135-145 Egfr 6.2 >60 Manual Differential 05/05/2019 N2N/CCD Import Anisocytosis 1+ Eosinophils % 8.0 Monocytes % 10.0 Lymphocytes % 22.0 Neutrophil % 60.0 CBC Auto Diff 05/05/2019 N2N/CCD Import Mean Platelet Volume 9.2 7.4- 10.4 Platelet Count 190 150-450 Red Cell Distribution Width 17 High 10-15 Mean Corpuscular HGB Conc 33 31-36 Mean Corpuscular Hemoglobin 32 High 27-31 Mean Corpuscular Volume 95 High 80-94 Hematocrit 29 Low 42-52 Hemoglobin 9.7 Low 14.0-18.0 Red Blood Count 3.08 Low 4.18-5.48 White Blood Count 4.4 3.5-10.8 CBC Auto Diff 05/04/2019 N2N/CCD Import White [...] 26 Low 42-52 Hemoglobin 8.8 Low 14.0-18.0 Basic Metabolic Panel 05/04/2019 N2N/CCD Import Potassium 4.6 3.5-5.0 Egfr 8.3 >60 Egfr Non- 6.8 >60 Calcium 8.5 Low 8.6-10.3 BUN/Creatinine Ratio 3.9 Low 8-20 Creatinine 8.97 High 0.67-1.17 Blood Urea Nitrogen 35 High 6-24 Glucose 92 70-100 Anion Gap 10 2-11 Co2 Carbon Dioxide 28 22-32 Chloride 100 Low 101-111 Sodium 138 135-145 Liver Panel 05/04/2019 N2N/CCD Import Alt 14 7-52 Alkaline Phosphatase 69 34-104 Indirect Bilirubin 0.9 0.3-1.0 Direct Bilirubin 0.20 High 0.03-0.18 Total Bilirubin 1.10 High 0.2-1.0 Albumin/Globulin Ratio 1.4 1-3 Globulin 3.1 2-4 Albumin 4.2 3.2-5.2 Total Protein 7.3 6.4-8.9 Ast 17 13-39 Lactic Acid 05/04/2019 N2N/CCD Import Lactic Acid 0.6 0.5-2.0 CBC Auto Diff 05/03/2019 N2N/CCD Import Nucleated [...] Import Lipase 117 High 11.0-82.0 C Reactive Protein 05/02/2019 N2N/CCD Import C Reactive 33.47 High <8.01 Protein Lactic Acid 04/30/2019 N2N/CCD Import Lactic Acid 0.7 0.5-2.0 C Reactive Protein 04/30/2019 N2N/CCD Import C Reactive 18.16 High <8.01 Protein Lipase 04/30/2019 N2N/CCD Import Lipase 127 High 11.0-82.0 Comprehensive 04/30/2019 N2N/CCD Import Egfr 4.1 >60 Metabolic Panel [place] Egfr Non- 3.4 >60 Ast 36 13-39 [...] 101-111 Potassium 5.0 3.5-5.0 Sodium 138 135-145 CBC Auto Diff 04/30/2019 N2N/CCD Import Nucleated Red Blood Cells % 0.0 Basophil % 1.2 Eosinophil % 3.7 Monocyte [...] Low 4.18-5.48 White Blood Count 4.6 3.5-10.8 Bsa (Burke) 04/06/2019 N2N/CCD Import Bsa (Burke) 1.69 Weight-Post (KG) 04/06/2019 N2N/CCD Import Weight-Post (KG) 68.5 Weight-Pre (KG) 04/06/2019 N2N/CCD Import Weight-Pre (KG) 71.4 Height (Inches) 04/06/2019 N2N/CCD Import Height (Inches) 62 Weight (KG) 04/06/2019 N2N/CCD Import Weight (KG) 68.0 # Days/WK Treated 04/06/2019 N2N/CCD Import # Days/WK Treated 4 2 - 3 VT (KT/V TX Vol) 04/06/2019 N2N/CCD Import VT (KT/V TX Vol) N/A VM (KT/V Mean Vol) 04/06/2019 N2N/CCD Import VM (KT/V Mean N/A Vol) KRT/V Renal 04/06/2019 N2N/CCD Import KRT/V Renal N/A SPKT/V Total 04/06/2019 N2N/CCD Import SPKT/V Total N/A NPCR HD [place] 04/06/2019 N2N/CCD Import NPCR HD [place] N/A Gender 04/06/2019 N2N/CCD Import Gender M Race 04/06/2019 N2N/CCD Import Race H Amputation Factor 04/06/2019 N2N/CCD Import Amputation Factor 0.000 TBW (Kaur) 04/06/2019 N2N/CCD Import TBW (Kaur) 39.25 STDKT/V Total 04/06/2019 N2N/CCD Import STDKT/V Total 2.04 Blood Flow-QWB 04/06/2019 N2N/CCD Import Blood Flow-QWB 450 Ferritin 04/06/2019 N2N/CCD Import Ferritin 536 High 22 - 322 CA/Phos W/Products 04/06/2019 N2N/CCD Import Calcium 8.1 Low 8.7 - 10.4 Phosphorus 4.0 2.4 - 5.1 [place] Product 32.4 21 - 53 [place] Corrected 32.4 21 - 53 KT/V By [place] Panel 04/06/2019 N2N/CCD Import Urr 44 Low 65 - 100 BUN 57 High 9 - 23 BUN - Post 32 High 9 - 23 Iron Panel 04/06/2019 N2N/CCD Import Iron 36 Low 65 - 175 Iron Saturation 13 Low 21 - 49 Tibc 274 250 - 425 Uibc 238 75 - 360 Chem 1 W/O CA/P 04/06/2019 N2N/CCD Import Alk Phos 98 46 - 116 Albumin 4.5 3.2 - 4.8 Chloride 98 Low 99 - 109 Co2 29 20 - 31 LDH, Total 223 120 - 246 Potassium 5.1 3.5 - 5.5 Ast/Sgot 21 0 - 34 Protein - Total 7.7 5.7 - 8.2 A/G Ratio 1.4 1 - 2.5 Globulin 3.2 0.9 - 5 CBC With Autodiff 04/06/2019 N2N/CCD Import Basophils 0.9 Neutrophils 73.2 Lymphocytes 14.1 Monocytes 7.0 Eosinophils 4.9 RDW 16.9 High 11.0 - 15.0 WBC 4.3 Low 4.5 - 11.0 RBC 3.17 Low 4.60 - 6.20 Hematocrit 32.0 Low 42.0 - 52.0 Hemoglobin 10.1 Low 14.0 - 18.0 MCV 101.1 High 80.0 - 100.0 MCH 31.9 High 27.0 - 31.0 MCHC 31.5 Low 32.0 - 36.0 Platelet-CT 349 150 - 400 Neuts-Abs 3125.64 2000 - 8800 Lymphs-Abs 602.07 Low 1100 - 4800 Monos-Abs 298.90 0 - 1100 Basos-Abs 38.43 0 - 400 Eosins-Abs 209.23 0 - 700 HCT Calc (HGBX3) 30.3 Low 42.0 - 52.0 Creatinine 04/06/2019 N2N/CCD Import Creatinine 11.88 High 0.70 - 1.30 Alt/SGPT 04/06/2019 N2N/CCD Import Alt/SGPT 19 10 - 49 Sodium 04/06/2019 N2N/CCD Import Sodium 138 132 - 146 Dialyzer Series 04/06/2019 N2N/CCD Import Dialyzer Series Car Age Of Patient 04/06/2019 N2N/CCD Import Age Of Patient 33 STDKDT/V Dialysis 04/06/2019 N2N/CCD Import STDKDT/V Dialysis 2.04 Ekdt/V Dialysis 04/06/2019 N2N/CCD Import Ekdt/V Dialysis 0.67 SPKDT/V Dialysis 04/06/2019 N2N/CCD Import SPKDT/V Dialysis 0.73 Calcium Corrected 04/06/2019 N2N/CCD Import Calcium Corrected 8.1 8.7 - 10.4 Minutes Dialyzed 04/06/2019 N2N/CCD Import Minutes Dialyzed 287 Dialyzer Shen 04/06/2019 N2N/CCD Import Dialyzer Shen 1174 Dialyzer Flow-qd 04/06/2019 N2N/CCD Import Dialyzer Flow-qd 189 Dialyzer 04/06/2019 N2N/CCD Import Dialyzer NxStage Make(MFG) Make(MFG) Dialyzer Model 04/06/2019 N2N/CCD Import Dialyzer Model 170-C CBC Auto Diff 03/20/2019 N2N/CCD Import Nucleated Red 0.1 Blood Cells % Basophil % 1.1 Eosinophil % 6.4 Monocyte % 11.2 Lymphocyte % 12.2 Granulocyte % 69.1 Abs Nucleated RBC 0.0 Abs Basophils 0.1 0-0.2 Abs Eosinophils 0.3 0-0.6 Abs Monocytes 0.5 0-0.8 Abs Lymphocytes 0.6 Low 1.0-4.8 Abs Neutrophils 3.2 1.5-7.7 Mean Platelet Volume 8.9 7.4-10.4 Platelet Count 140 Low 150-450 Red Cell Distribution Width 18 High 10-15 Mean Corpuscular HGB Conc 33 31-36 Mean Corpuscular Hemoglobin 33 High 27-31 Mean Corpuscular Volume 100 High 80-94 Hematocrit 29 Low 42-52 Hemoglobin 9.5 Low 14.0-18.0 Red Blood Count 2.91 Low 4.18-5.48 White Blood Count 4.6 3.5-10.8 Basic Metabolic Panel 03/20/2019 N2N/[facility] Import Egfr 5.7 >60 Egfr Non- 4.7 >60 Calcium 7.1 Low 8.6-10.3 BUN/Creatinine Ratio 4.9 Low 8-20 Creatinine 12.35 High 0.67-1.17 Blood Urea Nitrogen 61 High 6-24 Glucose 102 High 70-100 Anion Gap 14 High 2-11 Co2 Carbon Dioxide 26 22-32 Chloride 97 Low 101-111 Potassium 4.6 3.5-5.0 Sodium 137 135-145 Point Of Care Glucose 03/19/2019 N2N/[facility] Import Point Of Care Glucose 99 70-100 CBC Auto Diff 03/19/2019 N2N/[facility] Import Nucleated Red Blood 0.1 Cells % Basophil % 0.4 Eosinophil % 3.5 Monocyte % 10.7 Lymphocyte % 6.5 Granulocyte % 78.9 Abs Nucleated RBC 0.0 Abs Basophils 0.0 0-0.2 Abs Eosinophils 0.2 0-0.6 Abs Monocytes 0.6 0-0.8 Abs Lymphocytes 0.4 Low 1.0-4.8 Abs Neutrophils 4.5 1.5-7.7 Mean Platelet Volume 9.2 7.4-10.4 Platelet Count 131 Low 150-450 Red Cell Distribution Width 18 High 10-15 Mean Corpuscular HGB Conc 34 31-36 Mean Corpuscular Hemoglobin 33 High 27-31 Mean Corpuscular Volume 98 High 80-94 Hematocrit 29 Low 42-52 Hemoglobin 9.9 Low 14.0-18.0 Red Blood Count 3.01 Low 4.18-5.48 White Blood Count 5.8 3.5-10.8 Basic Metabolic Panel 03/19/2019 N2N/[facility] Import Egfr 6.9 >60 Egfr Non- 5.7 >60 Calcium 7.4 Low 8.6-10.3 BUN/Creatinine Ratio 4.2 Low 8-20 Creatinine 10.45 High 0.67-1.17 Blood Urea Nitrogen 44 High 6-24 Glucose 104 High 70-100 Anion Gap 13 High 2-11 Co2 Carbon Dioxide 27 22-32 Chloride 95 Low 101-111 Potassium 4.6 3.5-5.0 Sodium 135 135-145 Point Of Care 03/18/2019 N2N/CCD Import Point Of Care 125 High 70-100 Glucose Glucose Point Of Care 03/18/2019 N2N/CCD Import Point Of Care 82 70-100 Glucose Glucose Point Of Care Glucose 125 High 70-100 Point Of Care Glucose 03/18/2019 N2N/CCD Import Point Of Care Glucose 100 70-100 Point Of Care Glucose 82 70-100 Point Of Care Glucose 125 High 70-100 Manual Differential 03/18/2019 N2N/CCD Import RBC Morphology Normal Normal Basophil % 1.0 Eosinophils % 4.0 Monocytes % 12.0 Lymphocytes % 11.0 Neutrophil % 72.0 CBC Auto Diff 03/18/2019 N2N/CCD Import Mean Corpuscular HGB Conc 33 31- 36 Mean Corpuscular Hemoglobin 32 High 27-31 Mean Corpuscular Volume 98 High 80-94 Hematocrit 31 Low 42-52 Hemoglobin 10.4 Low 14.0-18.0 Red Blood Count 3.22 Low 4.18-5.48 White Blood Count 5.9 3.5-10.8 Nucleated Red Blood Cells % 0.1 Basophil % 0.5 Eosinophil % 4.5 Monocyte % 13.8 Lymphocyte % 9.1 Granulocyte % 72.1 Abs Nucleated RBC 0.0 Abs Basophils 0.0 0-0.2 Abs Eosinophils 0.3 0-0.6 Abs Monocytes 0.8 0-0.8 Abs Lymphocytes 0.5 Low 1.0-4.8 Abs Neutrophils 4.3 1.5-7.7 Mean Platelet Volume 8.5 7.4-10.4 Platelet Count 41 Low 150-450 Red Cell Distribution Width 17 High 10-15 Point Of Care Glucose 03/18/2019 N2N/CCD Import Point Of Care Glucose 64 Low 70-100 Point Of Care Glucose 03/18/2019 N2N/CCD Import Point Of Care Glucose 90 70-100 Point Of Care Glucose 64 Low 70-100 Point Of Care 03/17/2019 N2N/CCD Import Point Of Care Glucose 67 Low 70- 100 Glucose CBC Auto Diff 03/17/2019 N2N/CCD Import Nucleated Red Blood 0.0 Cells % Basophil % 0.5 Eosinophil % 2.3 Monocyte % 14.9 Lymphocyte % 5.7 Granulocyte % 76.6 Abs Nucleated RBC 0.0 Abs Basophils 0.0 0-0.2 Abs Eosinophils 0.1 0-0.6 Abs Monocytes 1.0 High 0-0.8 Abs Lymphocytes 0.4 Low 1.0-4.8 Abs Neutrophils 5.0 1.5-7.7 Mean Platelet Volume 8.8 7.4-10.4 Platelet Count 123 Low 150-450 Red Cell Distribution Width 18 High 10-15 Mean Corpuscular HGB Conc 33 31-36 Mean Corpuscular Hemoglobin 32 High 27-31 White Blood Count 6.6 3.5-10.8 Mean Corpuscular Volume 99 High 80-94 Hematocrit 33 Low 42-52 Hemoglobin 10.7 Low 14.0-18.0 Red Blood Count 3.34 Low 4.18-5.48 Basic Metabolic Panel 03/17/2019 N2N/CCD Import Egfr 8.5 >60 Egfr Non- 7.0 >60 Calcium 8.1 Low 8.6-10.3 BUN/Creatinine Ratio 4.2 Low 8-20 Creatinine 8.78 High 0.67-1.17 Blood Urea Nitrogen 37 High 6-24 Glucose 83 70-100 Anion Gap 15 High 2-11 Co2 Carbon Dioxide 28 22-32 Chloride 95 Low 101-111 Potassium 4.7 3.5-5.0 Sodium 138 135-145 Point Of Care 03/17/2019 N2N/CCD Import Point Of Care 124 High 70-100 Glucose Glucose Point Of Care Glucose 73 70-100 Point Of Care Glucose 03/17/2019 N2N/CCD Import Point Of Care Glucose 73 70-100 Point Of Care Glucose 03/16/2019 N2N/CCD Import Point Of Care Glucose 97 70-100 Point Of Care Glucose 03/16/2019 N2N/CCD Import Point Of Care Glucose 88 70-100 Point Of Care Glucose 97 70-100 Hepatitis B 03/16/2019 N2N/CCD Import Hepatitis B Immune Immune Surface Antibody Surface AB Hepatitis B 03/16/2019 N2N/CCD Import Hepatitis B Negative Negative Surface Antigen Surface Antigen Basic Metabolic 03/16/2019 N2N/CCD Import Blood Urea 76 High 6-24 Panel Nitrogen Glucose 95 70-100 Anion Gap 15 High 2-11 Co2 Carbon Dioxide 26 22-32 Chloride 96 Low 101-111 Potassium 5.7 High 3.5-5.0 Sodium 137 135-145 Egfr 5.5 >60 Egfr Non- 4.6 >60 Calcium 7.6 Low 8.6-10.3 BUN/Creatinine Ratio 6.0 Low 8-20 Creatinine 12.76 High 0.67-1.17 CBC Auto Diff 03/16/2019 N2N/CCD Import Nucleated Red Blood Cells % 0.1 Basophil % 0.5 Eosinophil % 2.2 Monocyte % 12.5 Lymphocyte % 7.3 Granulocyte % 77.5 Abs Nucleated RBC 0.0 Abs Basophils 0.0 0-0.2 Abs Eosinophils 0.1 0-0.6 Abs Monocytes 0.6 0-0.8 Abs Lymphocytes 0.4 Low 1.0-4.8 Abs Neutrophils 3.7 1.5-7.7 Mean Platelet Volume 8.8 7.4-10.4 Platelet Count 127 Low 150-450 Red Cell Distribution Width 18 High 10-15 Mean Corpuscular HGB Conc 34 31-36 Mean Corpuscular Hemoglobin 33 High 27-31 Mean Corpuscular Volume 97 High 80-94 Hematocrit 33 Low 42-52 Hemoglobin 11.2 Low 14.0-18.0 Red Blood Count 3.38 Low 4.18-5.48 White Blood Count 4.8 3.5-10.8 Point Of Care Glucose 03/16/2019 N2N/CCD Import Point Of Care 91 70-100 Glucose Basic Metabolic Panel 03/16/2019 N2N/CCD Import Egfr Non- 13.5 > 60 [place] Calcium < 4.0 Critical low 8.6-10.3 BUN/Creatinine Ratio 6.8 Low 8-20 Creatinine 4.97 High 0.67-1.17 Egfr 16.4 >60 Blood Urea Nitrogen 34 High 6-24 Glucose 34 Critical low 70-100 Anion Gap 8 2-11 Co2 Carbon Dioxide 9 Critical low 22-32 Chloride 128 High 101-111 Potassium 2.6 Critical low 3.5-5.0 Sodium 145 135-145 CBC Auto Diff 03/15/2019 N2N/CCD Import Mean Corpuscular HGB Conc 35 31- 36 Mean Corpuscular Hemoglobin 33 High 27-31 Mean Corpuscular Volume 96 High 80-94 Hematocrit 36 Low 42-52 Hemoglobin 12.3 Low 14.0-18.0 Red Blood Count 3.71 Low 4.18-5.48 White Blood Count 7.6 3.5-10.8 Red Cell Distribution Width 18 High 10-15 Nucleated Red Blood Cells % 0.0 Basophil % 0.6 Eosinophil % 1.5 Monocyte % 6.9 Lymphocyte % 4.0 Granulocyte % 87.0 Abs Nucleated RBC 0.0 Abs Basophils 0.0 0-0.2 Abs Eosinophils 0.1 0-0.6 Abs Monocytes 0.5 0-0.8 Abs Lymphocytes 0.3 Low 1.0-4.8 Abs Neutrophils 6.6 1.5-7.7 Mean Platelet Volume 7.8 7.4-10.4 Platelet Count 145 Low 150-450 Inr 03/15/2019 N2N/CCD Import Inr 1.09 0.82-1.09 Activated Partial 03/15/2019 N2N/CCD Import Activated Partial 36.5 26.0- 38.0 Thrombo Time Thrombo Time Comprehensive 03/15/2019 N2N/CCD Import Egfr 7.5 >60 Metabolic Panel [place] Egfr Non- 6.2 >60 Ast 16 13-39 Alt 14 7-52 Alkaline Phosphatase 68 34-104 Total Bilirubin 1.00 0.2-1.0 Albumin/Globulin Ratio 1.3 1-3 Globulin 3.9 2-4 Albumin 5.0 3.2-5.2 Total Protein 8.9 6.4-8.9 Calcium 8.9 8.6-10.3 BUN/Creatinine Ratio 5.3 Low 8-20 Creatinine 9.83 High 0.67-1.17 Blood Urea Nitrogen 52 High 6-24 Glucose 127 High 70-100 Anion Gap 14 High 2-11 Co2 Carbon Dioxide 30 22-32 Chloride 92 Low 101-111 Potassium 5.3 High 3.5-5.0 Sodium 136 135-145 Magnesium 03/15/2019 N2N/CCD Import Magnesium 2.2 1.9-2.7 Amylase 03/15/2019 N2N/CCD Import Amylase 101 29-103 Lipase 03/15/2019 N2N/CCD Import Lipase 44 11.0-82.0 C Reactive 03/15/2019 N2N/CCD Import C Reactive 13.81 High <8.01 Protein Protein Type And Screen 03/15/2019 N2N/CCD Import Antibody Screen Negative Patient Blood Type B Positive Lactic Acid 03/15/2019 N2N/CCD Import Lactic Acid 0.5 0.5-2.0 Lactic Acid 1.2 0.5-2.0 Lactic Acid 03/15/2019 N2N/CCD Import Lactic Acid 1.2 0.5-2.[address] [facility] Severe Sepsis and Septic Shock Management Bundle [...] immediately to secondary confirmatory testing. Using the inSelly DxI 800 Access Immunoassay systems, the 99th [...] [address]: Shahana Ocasio MD Acct: [id number] Unit: [id number] AGE: 33 Location: ED Re07/20/19 SEX: M Status: REG ER SPEC: [id number] MOHIT: 07/20/[address]: Bernard Belle NP REQ: [id number] RECD: 07/20/19 STATUS: COMP CARLIEHR DR: Shahana Hameed MD _ SOURCE: STOOL SPDESC: ORDERED: Occult Bl, Diag Procedure Result Reported Site Stool Occult Blood (1) Final 07/20/19- 2210 ML Stool Occult Blood Negative Collection Date (1) 07/20/19 * [facility] - Main Lab . END OF REPORT DEPARTMENT OF PATHOLOGY, [address] [place] [address] Paulo Marquez M.D. Director [facility] # [id number] 7 Because ethnic data is not always [...] in selective patients <6.0%. Please refer to [place] [employer] diabetic care guidelines for further information. 10 Desirable: <150 Borderline High: 150-199 High: 200-499 Very High: >500 11 Desirable: <200 Borderline High: 200-239 High: >239 12 Low: <40 Desirable: 40-60 High: >60 13 Desirable: <100 Near Optimal: 100-129 Borderline High: 130-159 High: 160-189 Very High: >189 Procedures Date Code Description Status 08/29/2019 92228 [facility] Per Full Month 20 Yrs Completed 07/29/2019 72090 [facility]ialysis Per Full Month 20 Yrs Completed 03/17/2019 31904 Hemodialysis, One Evaluation Completed 03/16/2019 21286 Hemodialysis, One Evaluation Completed Medical Devices Description No Information Available Encounters Type Date Location Provider Dx Diagnosis Office Visit 07/04/2019 [facility] Internal Alyson Hameed MD N18.6 End stage renal 3:00p Medicine - [address] disease Z99.2 Dependence on renal dialysis D63.1 Anemia in chronic kidney disease Z13.1 Encounter for screening for diabetes mellitus G62.9 Polyneuropathy, unspecified Z13.220 Encounter for screening for lipoid disorders Z23 Encounter for immunization G47.30 Sleep apnea, unspecified R03.0 Elevated blood-pressure reading, w/o diagnosis of htn Office Visit 05/08/2019 10:00a [facility] T18.2xxA Foreign body in Assoc,pc JUAN Desir stomach, Hospitalists initial encounter N18.6 End stage renal disease Z99.2 Dependence on renal dialysis D63.1 Anemia in chronic kidney disease Office Visit 05/07/2019 10:00a [facility] R10.9 Unspecified Assoc,pc [place], [place] abdominal pain Hospitalists N18.6 End stage renal disease Z99.2 Dependence on renal dialysis Office Visit 05/06/2019 9:59a [facility] R10.9 Unspecified Assoc,[facility] [place] abdominal pain Hospitalists G62.9 Polyneuropathy, unspecified N18.6 End stage renal disease Z99.2 Dependence on renal dialysis Office Visit 05/05/2019 9:59a [facility] [place] R10.9 Unspecified Assoc,[facility] [place] abdominal pain Hospitalists G62.9 Polyneuropathy, unspecified N18.6 End stage renal disease Z99.2 Dependence on renal dialysis Office Visit 05/04/2019 9:59a [facility] [place] R10.9 Unspecified Assoc,[facility] [place], [place] abdominal pain Hospitalists N18.6 End stage renal disease Z99.2 Dependence on renal dialysis D63.1 Anemia in chronic kidney disease Office Visit 05/03/2019 7:00a Surgical Nathanael Garibay R10.11 Right [facility] [place] quadrant pain R10.31 Right lower quadrant pain R11.2 Nausea with vomiting, unspecified N18.6 End stage renal disease Office Visit 05/03/2019 [facility] Gema Andrea, R10.9 Unspecified 9:58a Assoctiffanie M.D. abdominal pain Hospitalists N18.6 End stage renal disease Z99.2 Dependence on renal dialysis Office Visit 03/20/2019 11:09a [facility] Inderjit Gimenez K56.609 Unsp intestnl Assbryanna,tiffanie Garcia M.D.,FACP obst, unsp as Hospitalists to partial versus complete obst N18.6 End stage renal disease Z99.2 Dependence on renal dialysis D63.1 Anemia in chronic kidney disease Office Visit 03/19/2019 [facility] K56.609 Unsp intestnl 11:08a Asstiffanie gould MD obst, unsp as Hospitalists to partial versus complete obst N18.6 End stage renal disease Z99.2 Dependence on renal dialysis Office Visit 03/19/2019 7:00a Surgical Jud Srinivasan K56.600 Partial intestinal [facility] obstruction, unspecified as to cause N18.6 End stage renal disease Office Visit 03/18/2019 [facility] K56.609 Unsp intestnl 11:08a Asstiffanie gould MD obst, unsp as Hospitalists to partial versus complete obst K92.2 Gastrointestinal hemorrhage, unspecified E16.2 Hypoglycemia, unspecified R60.0 Localized edema N18.6 End stage renal disease Z99.2 Dependence on renal dialysis Office Visit 03/18/2019 7:00a Surgical Jud Srinivasan K56.600 Partial intestinal [facility] obstruction, unspecified as to cause N18.6 End stage renal disease Office Visit 03/17/2019 11:07a [facility] Gema Andrea K56.609 Unsp intestnl tiffanie Lawrence M.D. obst, unsp as Hospitalists to partial versus complete obst E16.2 Hypoglycemia, unspecified N18.6 End stage renal disease Z99.2 Dependence on renal dialysis Office Visit 03/17/2019 Surgical Morris Santiago K56.600 Partial 7:00a [facility] Alvarez MD, intestinal FACS obstruction, unspecified as to cause Office Visit 03/16/2019 [facility] Gema K56.609 Unsp intestnl 11:07a tiffanie Lawrence M.D. obst, unsp as to Hospitalists partial versus complete obst E16.2 Hypoglycemia, unspecified N18.6 End stage renal disease Z99.2 Dependence on renal dialysis Office Visit 03/15/2019 11:06a [facility] Elizbaeth K56.609 Unsp intestnl Assoc,tiffanie Granado D.O. [facility], [facility] as Hospitalists to partial versus complete obst Z99.2 Dependence on renal dialysis E87.5 Hyperkalemia N18.6 End stage renal disease D63.1 Anemia in chronic kidney disease Assessments Date Code Description Provider 09/12/2019 G47.33 Obstructive sleep apnea (adult) Betty Liu NP (pediatric) 09/12/2019 R53.83 Other fatigue Betty Liu NP 09/07/2019 R06.83 Snoring Yasmin Haynes MD 09/07/2019 [...] Hameed MD 07/04/2019 R03.0 Elevated blood-pressure reading, Alyson Hameed MD without diagnosis of hypertension 05/08/2019 T18.2xxA Foreign body in stomach, initial JUAN Maldonado encounter 05/08/2019 N18.6 End stage renal disease JUAN Maldonado 05/08/2019 Z99.2 Dependence on renal dialysis JUAN Maldonado 05/08/2019 D63.1 Anemia in chronic kidney disease JUAN Maldonado 05/07/2019 R10.9 Unspecified abdominal pain JUAN Maldonado 05/07/2019 N18.6 End stage renal disease JUAN Maldonado 05/07/2019 Z99.2 Dependence on renal dialysis JUAN Maldonado 05/06/2019 R10.9 Unspecified abdominal pain JUAN Maldonado 05/06/2019 G62.9 Polyneuropathy, unspecified JUAN Maldonado 05/06/2019 N18.6 End stage renal disease JUAN Maldonado 05/06/2019 Z99.2 Dependence on renal dialysis JUAN Maldonado 05/05/2019 R10.9 Unspecified abdominal pain JUAN Maldonado 05/05/2019 G62.9 Polyneuropathy, unspecified JUAN Maldonado 05/05/2019 N18.6 End stage renal disease JUAN Maldonado 05/05/2019 Z99.2 Dependence on renal dialysis JUAN Maldonado 05/04/2019 R10.9 Unspecified abdominal pain JUAN Maldonado 05/04/2019 N18.6 End stage renal disease JUAN Maldonado 05/04/2019 Z99.2 Dependence on renal dialysis JUAN Maldonado 05/04/2019 D63.1 Anemia in chronic kidney disease JUAN Maldonado 05/03/2019 R10.11 Right upper quadrant pain Nathanael Newton, PA 05/03/2019 R10.9 Unspecified abdominal pain Gema Andrea M.D. 05/03/2019 R10.31 Right lower quadrant pain Nathanael Newton, JUAN 05/03/2019 N18.6 End stage renal disease Gema Andrea M.D. 05/03/2019 R11.2 Nausea with vomiting, unspecified Nathanael Newton, JUAN 05/03/2019 Z99.2 Dependence on renal dialysis Gema Andrea M.D. 05/03/2019 N18.6 End stage renal disease Nathanael Newton, JUAN 03/20/2019 K56.609 Unsp intestnl obst, unsp as to Inderjit Garcia M.D., FACP partial versus complete obst 03/20/2019 N18.6 End stage renal disease Inderjit Garcia M.D.,[facility] 03/20/2019 Z99.2 Dependence on renal dialysis Inderjit Garcia M.D.,[facility] 03/20/2019 D63.1 Anemia in chronic kidney disease Inderjit Garcia M.D., [facility] 03/19/2019 K56.609 Unspecified intestinal obstruction, Sharla Bella MD unspecified as to partia 03/19/2019 N18.6 chinedu complete obstruction Sharla Bella MD 03/19/2019 K56.600 Partial intestinal obstruction, Jud Srinivasan MD unspecified as to cause 03/19/2019 Z99.2 Dependence on renal dialysis Sharla Bella MD 03/19/2019 N18.6 End stage renal disease Jud Srinivasan MD 03/18/2019 K56.609 Unspecified intestinal obstruction, Sharla Bella MD unspecified as to partia 03/18/2019 K92.2 chinedu complete obstruction Sharla Bella MD 03/18/2019 K56.600 Partial intestinal obstruction, Jud Srinivasan MD unspecified as to cause 03/18/2019 E16.2 Hypoglycemia, unspecified Sharla Bella MD 03/18/2019 R60.0 Localized edema Sharla Bella MD 03/18/2019 N18.6 End stage renal disease Jud Srinivasan MD 03/18/2019 N18.6 End stage renal disease Sharla Bella MD 03/18/2019 Z99.2 Dependence on renal dialysis Sharla Bella MD 03/17/2019 N18.6 End stage renal disease Sharla Bella MD 03/17/2019 K56.609 Unspecified intestinal obstruction, Gema Andrea M.D. unspecified as to partia 03/17/2019 E16.2 chinedu complete obstruction Gema Andrea M.D. 03/17/2019 K56.600 Partial intestinal obstruction, Morris Alvarez MD, FACS unspecified as to cause 03/17/2019 N18.6 End stage renal disease Gema Andrea M.D. 03/17/2019 Z99.2 Dependence on renal dialysis Gema Andrea M.D. 03/16/2019 N18.6 End stage renal disease Sharla Bella MD 03/16/2019 K56.609 Unspecified intestinal obstruction, Gema Andrea M.D. unspecified as to partia 03/16/2019 E87.2 Acidosis Sharla Bella MD 03/16/2019 E16.2 chinedu complete obstruction Gema Andrea M.D. 03/16/2019 N18.6 End stage renal disease Gema Andrea M.D. 03/16/2019 Z99.2 Dependence on renal dialysis Gema Andrea M.D. 03/15/2019 K56.609 Unsp intestnl obst, unsp as to Elizabeth Granado D.O. partial versus complete obst 03/15/2019 Z99.2 Dependence on renal dialysis Elizabeth Granado D.O. 03/15/2019 E87.5 Hyperkalemia Elizabeth Granado D.O. 03/15/2019 N18.6 End stage renal disease Elizabeth Granado D.O. 03/15/2019 D63.1 Anemia in chronic kidney disease Elizabeth Granado D.O. Plan of Treatment Future Appointment(s):11/07/2019 1:30 pm - Betty Liu NP at [facility]10/10/2019 1:00 pm - Alyson Hameed MD at [facility] Internal Medicine - [address]/04/2019 9:00 am - Carlitos Pantoja M.D. at [facility]09/12/2019 - Betty Liu NPG47.33 Obstructive sleep apnea (adult) (pediatric)Follow up:6-8 weeks ([facility]) Recommendations:You are being set up with CPAP for your sleep apnea through [facility] . They will call you to set up an appointment to get fit for a mask and pickle processor your machine. If youhave difficulty with your equipment, or need to replace your mask or hoses, please contact your homecare agency. If you have any further questions, please call the [facility] at [phone] If you have any sleepiness while driving you MUST avoid operating a vehicle or machinery. If youfeel tired while driving, bleach boiler puller and take a nap or switch drivers. If you know you are sleepy andneed to go somewhere, arrange for a ride or use public transportation. It is very important to not risk your safety or the safety of others.R53.83 Other fatigue Functional Status Description No Information Available Mental Status Description No Information Available Referrals Refer to Dr Reason for Referral Status Appt Date Yasmin Haynes MD sleep apnea detected during general anaethesia Sent 04/[address] [place] [address] [phone]
--- OUTSIDE RECORDS SUMMARY | 2019-11-08 17:47 | XMS REPORT | Summary of Care ---
:1985 Author Organization [facility] Address [address] [address] Care Team Providers Name Role Phone Shania Beyer Primary Care Provider Reason for Visit Auth/Cert Status Reason Specialty Diagnoses / Procedures Referred By Contact Referred To Contact Diagnoses Stenosis of other vascular prosthetic devices, implants and grafts, sequela Procedures [place] INTRO CATH DIALYSIS CIRCUIT DX ANGRPH FLUOR S&I [place] INTRO CATH DIALYSIS CIRCUIT W/TRLUML BALO ANGIOP [place] INTRO CATH DIALYSIS CIRCUIT W/TCAT PLMT IV STENT Encounter Details Date Type Department Care Team Description 10/11/2019 Hospital Encounter [facility] Zakiya Ernandez Short Procedure [address] [place] [address] [address] [phone] [place] [address] Allergies Active Allergy Reactions Severity Noted Date Comments Cefazolin Sodium Hives 02/15/2012 Ct Dye Anaphylaxis 02/15/2012 Keflex Hives 02/15/2012 Vancomycin Other 02/15/2012 nadya syndrome Phenol-Wasp Venom Respiratory Reaction High 05/22/2013 Also caused hives, Protein hypertension documented as of this encounter (statuses as of 10/12/2019) Medications Medication Sig Dispensed Refills Start End [...] MG Oral mouth DAILY. 9 TabIndications: Thrombus predniSONE Take 1 Tab by 3 Tab 0 Active (DELTASONE) 50 MG mouth DAILY. Take 9 Oral one tablet 13 TabIndications: hours, 7 hours Allergy to IVP dye, and 1 hour prior subsequent to the procedure encounter OXYcodone Take 1 Tab by 10 Tab 0 Active (OXY-IR,OXY-FAST) 5 mouth EVERY FOUR 9 MG Oral Tab HOURS NEEDED (Breakthrough). Max Daily Amount: 30 mg. predniSONE One tablet 13 3 Tab 0 Active (DELTASONE) 50 MG hours prior to 0 Oral Tab procedure, one tablet 7 hours prior to procedure, and one tablet 1 hour prior to procedure with benadryl lisinopril Take 20 mg by 0 Active (PRINIVIL, ZESTRIL) mouth DAILY. 20 MG Oral Tab metoclopramide Take 5 mg by 0 Active (REGLAN) 5 MG Oral mouth THREE TIMES Tab DAILY WITH MEALS. Omeprazole delayed Take 20 mg by 0 Active rel cap (PRILOSEC) mouth DAILY. 20 MG Oral CAPSULE DELAYED RELEASE Cholecalciferol 250 Take by mouth. 0 Active MCG (58585 UT) Oral Cap HYDROcodone-acetami Take 1 Tab by 8 Tab 0 Active nophen (NORCO) mouth EVERY SIX 0 5-325 MG Oral Tab HOURS NEEDED (Pain. please do not exceed 4000 mg of acetaminophen per day). Max Daily Amount: 4 Tabs. acetaminophen Take 2 Tabs by 120 Tab 0 Active (TYLENOL) 325 MG mouth EVERY EIGHT 0 Oral Tab HOURS NEEDED (Pain). ciprofloxacin Take 1 Tab by 14 Tab 0 Discontinued (CIPRO) 500 MG Oral mouth DAILY. 9 020 Tab acetaminophen Take 2 Tabs by 0 Discontinued (TYLENOL) 325 MG mouth EVERY SIX 9 020 (Reorder) Oral Tab HOURS NEEDED (Pain). diphenhydrAMINE Take 1 Cap by 1 Cap 0 (BENADRYL) 50 MG mouth ONE TIME 0 020 Oral Cap for 1 dose. 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 03/27/2019 Overview: Added automatically from request for surgery [id number] AV shunt thrombosis, subsequent encounter 09/27/2018 Overview: Added automatically from request for surgery [id number] AV shunt stenosis, subsequent encounter 09/06/2018 Overview: Added automatically from request for surgery [id number] Mechanical complication of arteriovenous surgical shunt 08/02/2018 Overview: Added automatically from request for surgery [id number] Cellulitis 05/24/2018 Overview: Cat scratch disease vs Cellulitis in setting of Fistula proximity No systemic signs of infection, no WBC elevation Patient may have received IV Clindamycin at [place] without benefit for one day IV Ciprofloxacin and IV Flagyl in ED, Change to IV Unasyn and IV Doxycycline Vascular consulted for fistula assessment and care Infectious disease consulted at this time Blood cultures pending AV graft thrombosis, subsequent encounter 01/17/2018 Overview: Added automatically from request for surgery [id number] Arteriovenous graft stenosis, sequela 12/14/2017 Overview: Added automatically from request for surgery [id number] Stage 4 chronic kidney disease 12/14/2017 Overview: Added automatically from request for surgery [id number] Inferior vena caval stenosis 10/07/2016 End stage renal disease 02/06/2015 Iliac vein stenosis, right 02/06/2015 prison (current) use of anticoagulants 10/30/2013 History of [...] as of this encounter (statuses as of 10/12/2019) Resolved Problems Problem Noted Date Resolved Date Subclavian vein stenosis, 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 03/01/2012 Subclavian vein stenosis, 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 03/01/2012 documented as of this encounter (statuses as of 10/12/2019) Immunizations Name Administration Dates Next Due Influenza [...] Sign Reading Time Taken Comments Blood Pressure 116/71 10/11/2019 3:45 PM EST Pulse 79 10/11/2019 3:45 PM EST Temperature 36.2 10/11/2019 1:03 PM C (97.2 EST F) Respiratory Rate 14 10/11/2019 3:45 PM EST Oxygen Saturation 97% 10/11/2019 3:45 PM EST Inhaled Oxygen Concentration - - Weight 74.3 kg (163 lb 11.2 oz) 10/11/2019 9:23 AM EST Height 157.5 cm (5' 2") 10/11/2019 9:23 AM EST Body Mass Index 29.94 10/11/2019 9:23 AM EST documented in this encounter Discharge Instructions Joey Dumont RN - 10/11/2019Provider's Instructions Reason for Admission or Diagnosis:AV graft stenosis, sequela Activity/Restrictions: Activity as tolerated, but no heavy lifting, strenuous exercise or driving until cleared by a physician at your post-operative appointment. Medications: resume all your home medication including aspirin and plavix. No Metformin for 48 hoursafter procedure. Skin/Wound Care: Keep incision clean and dry. Observe for redness, swelling, or drainage. Can shower 48 hours after procedure with dressing on. Soap, shampoo and conditioner are all ok. Let everything run over then pat dry. Discharge Diet: diet that you were on prior to hospitalization. Please take stool softener while youare on narcotic pain medication since it can cause constipation Special Instructions: -Follow up with Dr. Ernandez in [facility] in 2 weeks. Please call the clinic of Dr. Ernandez at [phone] if you have any questions or concerns before your appointment. Discharge Provider: Berny Weaver MD Attending: Zakiya Ernandez, * Time: 15:27 Nurse's Instructions Problems to report to your Physician: Excessive pain or discomfort Fever > 100.5 degrees Difficulty breathing Increase or smell in wound drainage Skin/Wound Care: Skin intact on discharge: {SKIN/WOUND CARE:23127} Medical Equipment/Supplies to help you at home: {MEDICAL SUPPLIES:93455} Patient's medications returned: {N/A:04097} Help arranged for you Home Health/Receiving Agency: {HOME HEALTH/RECEIVING AGENCY:91635} Other preprinted instructions reviewed and given: {PREPRINTED DISCHARGE INSTRUCTIONS:49996} Follow-Up Care: Call to schedule your appointment with in {NUMBERS 0 - 7:922483} weeks, Phone Blood work needed: X-rays needed: Reminded patient that they can VIEW, DOWNLOAD and TRANSMIT their hospital information in [facility]: {YES/NO:64} [email or web address]% [email or web address] Smoking: If you or your caregiver smoke, we recommend that you quit. For smoking cessation help, please callthe National Quit Line at . QUESTIONS OR CONCERNS AFTER DISCHARGE Dietitian Home Care Needs *Please Return Patient Satisfaction Survey* General Anesthesia For the next 24 hours: [...] for 12 hours after receiving general anesthesia. documented in this encounter Plan of Treatment Date Type Specialty Care Team Description 10/27/2019 Office Visit Vascular Surgery Angelina Van, [address] [address] [phone] Name Type Priority Associated Diagnoses Date/Time SP INFERIOR VENA CAVAGRAM Imaging Routine 10/11/2019 12:49 PM EST SP PERIPHERAL ANGIOPLASTY Imaging Routine 10/11/2019 12:51 PM RIGHT SIDE EST Name Type Priority Associated Diagnoses Order Schedule SP INFERIOR VENA Imaging Routine One PRN (for Radiant CAVAGRAM use) One PRN (for Radiant use) for 1 Occurrences starting 10/11/2019 SP PERIPHERAL Imaging Routine One PRN (for Radiant ANGIOPLASTY RIGHT SIDE use) One PRN (for Radiant use) for 1 Occurrences starting 10/11/2019 Health Maintenance Due Date Last Done Comments [...] of this encounter Implants Implanted Type Area Merchandise Clerk Device Shelf Model / Identifier Expiration Serial / Lot Date [place] Graft Regular Wall 6x40 - [id number] Left: Arm [employer] [id number] / Implanted: Qty: 1 on 03/10/2012 at [facility] / [id number] Propaten Graft Right: [employer] [id number] / Implanted: Qty: 1 on 12/13/2012 at [facility] / [id number] Description:[id number] Artegraft Collagen Vascular Graft Right: Leg 02/26/2018 [id number] / Implanted: Qty: 1 on 08/26/2015 by Zakiya Ernandez MD at [facility] / [id number] Description:c1768 documented as of this encounter Procedures Procedure Name Priority Date/Time Associated Comments Diagnosis SIGN PERMIT 10/11/2019 12:00 PM EST FISTULOGRAM AV ROOM Planned Trip to [place] 10/11/2019 10:24 AV graft stenosis, 14 AM EST sequela Case Notes Need C-Arm documented in this encounter Results Not on filedocumented in this encounter Visit Diagnoses Diagnosis AV graft stenosis, sequela documented in this encounter Administered Medications Medication Order MAR Action Action Date Dose Rate Site FentaNYL (PF) (SUBLIMAZE) injection (PF) 25 mcg 25 mcg, Intravenous Push, PRU Q5MIN PRN, Starting Wed10/11/19 at 1312, Until Wed10/11/19 at 1711, Mild Pain (pain scale 1-3) - IV - 1st line - if immediate effect required or patient cannot tolerate PO, 4 Recovery FentaNYL (PF) (SUBLIMAZE) injection (PF) 50 mcg 50 mcg, Intravenous Push, PRU Q5MIN PRN, Starting Wed10/11/19 at 1312, Until Wed10/11/19 at 1848, Moderate Pain (pain scale 4-6) - IV - 1st line - if immediate effect required or patient cannot tolerate PO, Severe Pain (pain scale 7-10) - IV - 1st line - if immediate effect required or patient cannot tolerate PO, 4 Recovery haloperidol (HALDOL) injection 0.65 mg 0.65 mg, Intravenous Push, PRU X1 PRN, 1 dose, Starting Wed10/11/19 at 1312, Until Wed10/11/19 at 1848, Nausea/Vomiting - IV - 3rd line - if immediate effect required or patient cannot tolerate PO and no relief 1 hour after administration of 2nd line agent, 4 Recovery HYDROcodone-acetaminophen (NORCO) 5-325 mg 1 Given 10/11/2019 3:47 PM EST 1 Tab Tab 1 Tab, Oral, X1 BEFORE DISCHARGE, 1 dose, First dose on Wed10/11/19 at 1540, MAXIMUM 4,000 mg of acetaminophen daily., HYDROmorphone (DILAUDID) syringe 0.3 mg 0.3 mg, Intravenous Push, PRU Q5MIN PRN, Starting Wed10/11/19 at 1312, Until Wed10/11/19 at 1711, Mild Pain (pain scale 1-3) IV - 2nd line - if immediate effect required or cannot tolerate PO & still had mild pain 4 hrs after admin of 1st line agent or patient did not tolerate 1st line agent, 4 Recovery HYDROmorphone (DILAUDID) syringe 0.5 mg Given 10/11/2019 1:56 PM EST 0.5 mg 0.5 mg, Intravenous Push, PRU Q5MIN PRN, 2 doses, Starting Wed10/11/19 at 1312, Until Wed10/11/19 at 1356, Moderate Pain (pain scale 4-6)IV 2nd line- [...] tolerate 1st line agent, 4 Recovery Given 10/11/2019 1:35 PM EST 0.5 mg lactated ringers IV Intravenous, at 100 mL/hr, PRU CONTINUOUS, Starting Wed10/11/19 at 1320, Until Wed10/11/19 at 1848, 4 Recovery, PRU, meperidine (DEMEROL) syringe 25 mg 25 mg, Intravenous Push, PRU Q5MIN PRN, 2 doses, Starting Wed10/11/19 at 1312, Until Wed10/11/19 at 1848, Shivering/Chills/Rigors, 4 Recovery midazolam (VERSED) injection 0.5 mg 0.5 mg, Intravenous Push, PRU Q5MIN PRN, Starting Wed10/11/19 at 1312, Until Wed10/11/19 at 1711, Anxiety - IV - 1st line - if immediate effect required or patient cannot tolerate PO, 4 Recovery normal saline IV New Bag 10/11/2019 9:36 AM EST 15 mL/hr Intravenous, at 15 mL/hr, CONTINUOUS, Starting Wed10/11/19 at 0920, Until Wed10/11/19 at 1300, 2 Day of Surgery Pre Procedure New Bag 10/11/2019 9:33 AM EST ondansetron (ZOFRAN) injection 4 mg 4 mg, Intravenous Push, PRU X1 PRN, 1 dose, Starting Wed10/11/19 at 1312, Until Wed10/11/19 at 1848, Nausea/Vomiting - IV - 1st line - If immediate effect required or patient cannot tolerate PO, 4 Recovery prochlorperazine (COMPAZINE) injection 2.5 mg 2.5 mg, Intravenous Push, PRU PRN, 2 doses, Starting Wed10/11/19 at 1312, Until Wed10/11/19 at 1848, Nausea/Vomiting - IV - 2nd line - if immediate effect required or patient cannot tolerate PO and no relief 1 hours after administration of 1st line agent, 4 Recovery documented in this encounter Insurance Payer Benefit Plan / Subscriber ID Effective Dates Phone Address Type Group MEDICARE MEDICARE PART A [id number] 1986-Present Medicare & B MEDICAID [facility] [id number] 2019-Present Medicaid [place] MED[place] documented as of this encounter Advance Directives Code Status Date Activated Date Inactivated Comments Full Code 05/25/2019 3:43 AM 06/30/2019 7:30 AM Does the patient have decision making capacity? Yes Order was discussed with: Patient I discussed all options and patient/surrogate requested and agreed to: Full Code
[2019-11-08 21:41] VITALS: BP 137/84
== END 2019-11-08 23:48 | disposition left against medical advice (07) ==
LOC: ED 17:24
DX: R53.83 Other fatigue (principal); Z53.21 Procedure and treatment not carried out due to patient leaving prior to being seen by health care provider
CPT/HCPCS: 99282

== ENCOUNTER 2019-11-09 15:33 | Emergency (ER) | payer MEDICARE, MEDICAID ==
--- NOTE | 2019-11-09 20:31 | ED ---
Complex/Multi-Sys Presentation - HPI Summary HPI Summary: Patient is a 34 year-old male presenting to [facility] with a chief complaint of fistula malfunction for the last two days. He reports that he has polycystic kidney disease and has a fistula placed in the right thigh for at home hemodialysis. On 11/03/2019, the graft clotted, and he had the clots removed in [place]. On 11/04/2019, he had a partial treatment but had burning pain in the thigh. Over the last two days, he has been unable to get a dialysis treatment because of the pain. He does do preliminary labs at home and had BUN of 116 and creatinine of 18, as confirmed by home nurse. The patient came to the ER yesterday but left without being seen. There is pain in the thigh now rated 6/ 10 in severity, and it does not radiate through the leg. He states he is feeling sluggish but denies any fever, chills, erythema of eyes, sore throat, chest pain, shortness of breath, cough, abdominal pain, nausea, vomiting, dysuria, hematuria, edema, rash, or dizziness. His vascular surgeon is located in [place], but his marine drafter is Dr. Maldonado. He notes he had clotting in the shunts before. Past medical history includes partial thyroidectomy, hypertension , pericarditis. Former smoker, no alcohol use, no substance use. Medications reviewed. Allergies noted. - History Of Current Complaint Chief Complaint: EDGeneral Time Seen by Provider: 11/09/19 17:43 Hx Obtained From: Patient Onset/Duration: Lasting Days, Still Present Timing: Constant Severity Currently: Moderate Severity Initially: Mild Location: Pain At: - right thigh Aggravating Factor(s): fistula issues Alleviating Factor(s): nothing Associated Signs And Symptoms: Positive: Other - sluggish; Negative: chills, erythema of eyes, sore throat, hematuria, rash. Negative: Dizziness, SOB, Cough , Chest Pain, Edema, Nausea, Vomiting, Abdominal Pain, Dysuria, Fever - Allergies/Home Medications Allergies/Adverse Reactions: Allergies Allergy/AdvReac Type Severity Reaction Status Date / Time Iodinated Contrast Media Allergy Severe Anaphylatic Verified 11/09/19 15:35 [Iodinated Contrast- Oral Shock and IV Dye] vancomycin Allergy Severe Red man Verified 11/09/19 15:35 syndrome bee venom protein (honey bee) Allergy Anaphylatic Verified 11/09/19 15:35 Shock cefazolin [From Ancef] Allergy Hives Verified 11/09/19 15:35 cephalexin [From Keflex] Allergy Hives Verified 11/09/19 15:35 Penicillins Allergy Hives Verified 11/09/19 15:35 Home Medications: Home Medications Acetaminophen TAB* [Tylenol TAB*] 975 mg PO Q6HR PRN #0 02/09/17 [Rx Confirmed 11/09/19] Epoetin Giovany (NF) [Epogen (NF)] 15,000 units INJ .TWICE WEEKLY 04/02/17 [ History Confirmed 11/09/19] Gabapentin CAP(*) [Neurontin 100 mg CAP(*)] 100 mg PO TID 08/21/19 [History Confirmed 11/09/19] Metoclopramide TAB* [Reglan TAB*] 5 mg PO BID 08/21/19 [History Confirmed ] Warfarin TAB(*) [Coumadin TAB(*)] 2 mg PO DAILY 08/21/19 [History Confirmed 08/18] predniSONE 20 mg TAB [Deltasone 20 MG TAB*] 40 mg PO DAILY PRN 11/09/19 [ History Confirmed 11/09/19] PMH/Surg Hx/FS Hx/Imm Hx Endocrine/Hematology History: Reports: Hx Anticoagulant Therapy - HEPARIN DURING DIALYSIS, Hx Thyroid Disease - PARTIAL PARATHYROIDECTOMY Denies: Hx Diabetes Cardiovascular History: Reports: Hx Angina, Hx Hypertension, Other Cardiovascular Problems/Disorders - Pericarditis Denies: Hx Coronary Artery Disease, Hx Hypercholesterolemia, Hx Myocardial Infarction, Hx Pacemaker/ICD, Hx Peripheral Vascular Disease, Hx Valvular Heart Disease Respiratory History: Denies: Hx Asthma, Hx Chronic Obstructive Pulmonary Disease (COPD) Comment Only: Other Respiratory Problems/Disorders - HX PNEUMONIA GI History: Reports: Hx Obstructive Bowel History: Reports: Hx Chronic Renal Failure - hemodialysis 4x/week at home, Hx Renal Disease - dialysis , , wed Musculoskeletal History: Denies: Hx Arthritis, Hx Osteoporosis Sensory History: Denies: Hx Contacts or Glasses, Hx Hearing Aid Opthamlomology History: Denies: Hx Contacts or Glasses Neurological History: Denies: Hx Dementia, Hx Headaches, Hx Seizures, Hx Transient Ischemic Attacks (TIA) Psychiatric History: Denies: Hx Anxiety, Hx Depression, Hx Panic Disorder, Hx Substance Abuse - Surgical History Surgical History: Yes Surgery Procedure, Year, and Place: PARTIAL PARATHYROIDECTOMY, L ARM GRAFT, R LEG GRAFT, HEMODYALISIS CATHETER PLACEMENT, KIDNEY TRANSPLANT X2, APPENDECTOMY, bilat illiac graft 02/2019 - Immunization History Date of Tetanus Vaccine: [facility] Date of Influenza Vaccine: 05/2019 Infectious Disease History: No Infectious Disease History: Denies: Hx Hepatitis, Hx Human Immunodeficiency Virus (HIV), Hx of Known/ Suspected MRSA, Traveled Outside the [place] in Last 30 Days - Family History Known Family History: Positive: Hypertension, Diabetes Negative: Cardiac Disease - Social History Alcohol Use: None Hx Substance Use: No Substance Use Type: Reports: None Hx Tobacco Use: Yes Smoking Status (MU): Former Smoker Type: Cigarettes Amount Used/How Often: 1 pack lasted 4 days Length of Time of Smoking/Using Tobacco: 12 years Have You Smoked in the Last Year: No Review of Systems Positive: Other - sluggish. Negative: Fever, Chills Negative: Erythema Negative: Sore Throat Negative: Chest Pain Negative: Shortness Of Breath, Cough Negative: Abdominal Pain, Vomiting, Nausea Negative: dysuria, hematuria Positive: Myalgia - right thigh at fistula site. Negative: Edema Negative: Rash Neurological/Mental Status: Other - Negative: dizziness All Other Systems Reviewed And Are Negative: Yes Physical Exam - Summary Physical Exam Summary: Constitutional: Well-developed, Well-nourished, Alert. (-) Distressed Skin: Warm, Dry HENT: Normocephalic; Atraumatic Eyes: Conjunctiva normal Neck: Musculoskeletal ROM normal neck. (-) JVD, (-) Stridor, (-) Tracheal deviation Cardio: Rhythm regular, rate normal, Heart sounds normal; Intact distal pulses; The pedal pulses are 2+ and symmetric. Radial pulses are 2+ and symmetric. (-) Murmur Pulmonary/Chest wall: Effort normal. (-) Respiratory distress, (-) Wheezes, (-) Rales Abd: Soft, (-) tenderness, (-) Distension, (-) Guarding, (-) Rebound Musculoskeletal: Palpable dorsalis pedis pulses, Bruising and mild swelling in the right thigh, Palpable thrill. (-) Edema Lymph: (-) Cervical adenopathy Neuro: Alert, Oriented x3 Psych: Mood and affect Normal Triage Information Reviewed: Yes Vital Signs On Initial Exam: Initial Vitals Temp Pulse Resp BP Pulse Ox 97.7 F 90 15 172/113 100 11/09/19 15:35 11/09/19 15:35 11/09/19 15:35 11/09/19 15:35 11/09/19 15:35 Vital Signs Reviewed: Yes Procedures - Sedation Patient Received Moderate/Deep Sedation with Procedure: No Diagnostics - Vital Signs Vital Signs Temp Pulse Resp BP Pulse Ox 11/09/19 18:10 171/104 11/09/19 15:35 97.7 F 90 15 172/113 100 - Laboratory Result Diagrams: 11/09/19 21:10 11/09/19 21:10 Lab Statement: Any lab studies that have been ordered have been reviewed, and results considered in the medical decision making process. - EKG 2044 Cardiac Rate: NL - 81 BPM EKG Rhythm: Sinus Rhythm Summary of EKG Findings: An EKG at 2044 reveals normal sinus rhythm at rate of 81 BPM. No STEMI. ED physician has reviewed and interpreted this EKG. Re-Evaluation - Re-Evaluation First Eval Re-Evaluation Time: 21:00 Comment: Patient agreeable with transfer plan but has elected to go via private vehicle Complex Multi-Symp Course/Dx Course Of Treatment: Patient is a 34 year-old male who has history of polycystic kidney disease presenting with right iliac fistula graft malfunction for the last two days causing burning pain in the right thigh and inability to administer at-home hemodialysis treatments. Recent clotting relieved at [place] on 11/03/2019. Patients vascular surgeon located in [place]. Patient feels sluggish and has pain in the right thigh but is otherwise Physical exam is significant for palpable dorsalis pedis pulses, bruising and mild swelling in the right thigh, palpable thrill. Patient received Dilaudid for pain. Blood work reveals RBCs 2.2, hemoglobin 7.6, hematocrit 21, MCV 95, MCH 35, MCHC 37, RDW 20, chloride 96, anion gap 18, BUN 89, creatinine 16.79, BUN/creatinine 5.3 , calcium 7.4, phosphorus 6.3, INR 1.19, PTT 38.9. No hypokalemia. No signs of fluid overload. EKG shows normal sinus rhythm at 81 BPM, non-diagnostic for STEMI. Patients case requires transfer to [facility]. I spoke with Dr. Vail in the ED, and he accepts the patient for transfer. Patient agreeable with plan , but he has elected to go to [place] by private vehicle. 35 MINUTES CRITICAL CARE TIME. Assessment/Plan: Differential diagnosis: Clotted fistula, operative vascular injury - Diagnoses Provider Diagnoses: Postoperative pain - Physician Notifications Discussed Care Of Patient With: Koffi Vail - [facility] ED Time Discussed With Above Provider: 21:30 Instructed by Provider To: Transfer - I discussed the patients case with Dr. Vail at [facility], and he accepts the patient for transfer. Reason For Transfer: Specialty or service not available at [facility] Patient not appropriate for [facility]. - Critical Care Time Critical Care Time: 30-74 min - 35 minutes Discharge ED - Sign-Out/Discharge Documenting (check all that apply): Patient Departure - Patient accepted for transfer to [facility] by Dr. Vail. - Discharge Plan Condition: Stable Disposition: TRANS HIGHER LVL OF CARE FAC Referrals: Alyson Hameed MD [Primary Care Provider] - - Billing Disposition and Condition Condition: STABLE Disposition: Trans Higher Lvl of Care Fac - Attestation Statements Document Initiated by Tahiraibe: Yes Documenting Scribe: Ericka Zaragoza Provider For Whom Tahiraibe is Documenting (Include Credential): Miles Dugan MD Scribe Attestation: I, Ericka Zaragoza, scribed for Miles Dugan MD on 11/09/19 at 5139. Scribe Documentation Reviewed: Yes Provider Attestation: The documentation as recorded by the Ericka banks accurately reflects the service I personally performed and the decisions made by me, Miles Dugan MD Status of Scribe Document: Viewed
[2019-11-09 21:20] LABS: Hematocrit 21 % (42-52); Hemoglobin 7.6 g/dL (14.0-18.0); Mean Corpuscular HGB Conc 37 g/dL (31-36); Mean Corpuscular Hemoglobin 35 pg (27-31); Mean Corpuscular Volume 95 fL (80-94); Mean Platelet Volume 7.4 fL (7.4-10.4); Platelet Count 266 10^3/uL (150-450); Red Cell Distribution Width 20 % (10-15)
[2019-11-09] MEDS ORDERED: HYDROmorphone TAB* 4 MG PO ONE (21:27)
[2019-11-09 21:36] LABS: Albumin 4.6 g/dL (3.2-5.2); Albumin/Globulin Ratio 1.4 (1-3); BUN/Creatinine Ratio 5.3 (8-20); Calcium 7.4 mg/dL (8.6-10.3); EGFR Non-African American 3.3 (>60); Globulin 3.4 g/dL (2-4); Magnesium 1.9 mg/dL (1.9-2.7); Phosphorus 6.3 mg/dL (2.5-5.0); Potassium 4.3 mmol/L (3.5-5.0); Total Bilirubin 0.5 mg/dL (0.2-1.0)
[2019-11-09 21:39] LABS: Activated Partial Thrombo Time 38.1 seconds (26.0-38.0); INR 1.19 (0.82-1.09)
[2019-11-09 22:40] VITALS: BP 140/94
== END 2019-11-09 22:39 | disposition short-term general hospital (02) ==
LOC: ED 15:33
DX: G89.18 Other acute postprocedural pain (principal); I12.0 Hypertensive chronic kidney disease with stage 5 chronic kidney disease or end stage renal disease; I10 Essential (primary) hypertension; N18.6 End stage renal disease; Z99.2 Dependence on renal dialysis; Z87.891 Personal history of nicotine dependence; Z79.01 Long term (current) use of anticoagulants; Z88.0 Allergy status to penicillin; Z90.89 Acquired absence of other organs
CPT/HCPCS: 36415; 80053; 83735; 84100; 85027; 85610; 85730; 93005; 99284; A9270-GY

== ENCOUNTER 2023-08-01 17:05 | Inpatient (IN) ==
[2023-08-01 18:47] LABS: ABS Eosinophils 0.3 10^3/uL (0.0-0.5); ABS Lymphocytes 0.8 10^3/uL (1.0-4.8); ABS Monocytes 0.3 10^3/uL (0.0-1.1); ABS Neutrophils 3.4 10^3/uL (1.5-7.6); Eosinophil % 6.4 %; Hematocrit 23.5 % (38-53); Hemoglobin 8.1 g/dL (13.2-16.3); Lymphocyte % 16.5 %; Mean Corpuscular Hemoglobin 31.9 pg (27-33); Mean Corpuscular Hgb Conc 34.5 g/dL (31-36); Mean Corpuscular Volume 92.6 fL (80-97); Mean Platelet Volume 8.2 fL (7.5-11.2); Nucleated Red Blood Cells % 0.1 %/100WBC (0.0-0.8); Platelet Count 157 10^3/uL (150-450); Red Blood Count 2.54 10^6/uL (4.06-5.63); Red Cell Distribution Width 16.3 % (12-17); White Blood Count 4.8 10^3/uL (3.6-10.2)
[2023-08-01 19:06] LABS: Albumin 4.3 g/dL (3.2-5.2); Calcium 6.8 mg/dL (8.6-10.3); Creatinine, Serum 16.41 mg/dL (0.67-1.17); Globulin 4.1 g/dL (2-4); Magnesium 1.8 mg/dL (1.9-2.7); Phosphorus 6.3 mg/dL (2.5-5.0); Potassium 5.5 mmol/L (3.5-5.0); Total Bilirubin 0.5 mg/dL (0.2-1.0); Total Protein 8.4 g/dL (6.4-8.9); eGFR CKD-EPI 3.5 (>60)
[2023-08-01] MEDS ORDERED: Ondansetron 4 mg VIAL 2 MG/ML 2 ml VIAL IV PRN (20:11)
[2023-08-01] MEDS ORDERED: SODIUM ZIRCONIUM CYCLOSILICATE 10 GM PACKET PO ONE (20:28)
[2023-08-01] MEDS ORDERED: NS 0.9% 1000 ml BAG 100 ML IV PRN (21:29)
[2023-08-01] MEDS ORDERED: NS 0.9% 1000 ml BAG 200 ML IV PRN (21:29)
[2023-08-01] MEDS ORDERED: Albumin Human 25% 25 GM/100 ML BTL IV PRN (21:29)
[2023-08-02 06:47] LABS: ABS Basophils 0.1 10^3/uL (0.0-0.1); ABS Eosinophils 0.5 10^3/uL (0.0-0.5); ABS Lymphocytes 1.1 10^3/uL (1.0-4.8); ABS Monocytes 0.6 10^3/uL (0.0-1.1); ABS Neutrophils 2.7 10^3/uL (1.5-7.6); Eosinophil % 9.2 %; Hematocrit 24.7 % (38-53); Hemoglobin 8.4 g/dL (13.2-16.3); Lymphocyte % 22.6 %; Mean Corpuscular Hemoglobin 31.5 pg (27-33); Mean Corpuscular Hgb Conc 34.2 g/dL (31-36); Mean Corpuscular Volume 92.2 fL (80-97); Mean Platelet Volume 8.3 fL (7.5-11.2); Nucleated Red Blood Cells % 0.1 %/100WBC (0.0-0.8); Platelet Count 164 10^3/uL (150-450); Red Blood Count 2.68 10^6/uL (4.06-5.63); Red Cell Distribution Width 16.2 % (12-17); White Blood Count 5.1 10^3/uL (3.6-10.2)
[2023-08-02 07:03] LABS: Calcium 6.6 mg/dL (8.6-10.3); Creatinine, Serum 17.06 mg/dL (0.67-1.17); Magnesium 1.9 mg/dL (1.9-2.7); Potassium 5.5 mmol/L (3.5-5.0); eGFR CKD-EPI 3.3 (>60)
[2023-08-02] MEDS: B COMPLEX VITAMIN C FOLIC ACID 0.8 MG PO SCH (12:14)
[2023-08-02 13:14] LABS: Hepatitis B Surface Ab Immune (Immune)
[2023-08-02] MEDS: Heparin 1,000 UNIT/ML 10 ml (10,000 UNITS) CATHLAB/DIALYSIS DIALYSIS PRN ×3 (13:30→15:35)
[2023-08-02 14:05] LABS: Hepatitis B Surface Antigen Nonreactive (Nonreactive)
[2023-08-03 06:29] LABS: ABS Basophils 0.1 10^3/uL (0.0-0.1); ABS Eosinophils 0.4 10^3/uL (0.0-0.5); ABS Lymphocytes 0.8 10^3/uL (1.0-4.8); ABS Monocytes 0.5 10^3/uL (0.0-1.1); ABS Neutrophils 3.2 10^3/uL (1.5-7.6); Eosinophil % 8.3 %; Hematocrit 23.7 % (38-53); Hemoglobin 8.1 g/dL (13.2-16.3); Lymphocyte % 16.4 %; Mean Corpuscular Hemoglobin 31.7 pg (27-33); Mean Corpuscular Hgb Conc 34.3 g/dL (31-36); Mean Corpuscular Volume 92.6 fL (80-97); Mean Platelet Volume 8.4 fL (7.5-11.2); Platelet Count 155 10^3/uL (150-450); Red Blood Count 2.56 10^6/uL (4.06-5.63); Red Cell Distribution Width 16.3 % (12-17)
[2023-08-03 06:39] LABS: Albumin 4.3 g/dL (3.2-5.2); Calcium 7.6 mg/dL (8.6-10.3); Creatinine, Serum 12.1 mg/dL (0.67-1.17); Globulin 4.3 g/dL (2-4); Magnesium 1.7 mg/dL (1.9-2.7); Potassium 4.7 mmol/L (3.5-5.0); Total Bilirubin 0.4 mg/dL (0.2-1.0); Total Protein 8.6 g/dL (6.4-8.9)
[2023-08-03] MEDS: B COMPLEX VITAMIN C FOLIC ACID 0.8 MG PO SCH (09:55)
[2023-08-03 10:06] VITALS: BP 103/69
[2023-08-03] MEDS ORDERED: Clindamycin 600 MG/D5W BAG 600 MG/50 ML BAG IV ONE (11:00)
[2023-08-03] MEDS ORDERED: Heparin 1,000 UNIT/ML 10 ml (10,000 UNITS) CATHLAB/DIALYSIS ONE (13:00)
[2023-08-03] MEDS ORDERED: Heparin 2 UNITS/ML 1000 mls 1,000 ML IV ONE (13:01)
[2023-08-03] MEDS ORDERED: Lidocaine 1% MPF 5 ML VIAL ONE (13:01)
[2023-08-03] MEDS ORDERED: Iohexol 300 (CONTRAST) 10 ML SDV ONE (13:07)
[2023-08-03] MEDS ORDERED: Iohexol 180 (CONTRAST) 10 ML SDV IV ONE (13:09)
[2023-08-03] MEDS ORDERED: Midazolam 5 mg/5 ml VIAL 1 mg/ml 5 ml VIAL (5 mg) ONE (13:17)
[2023-08-03] MEDS ORDERED: fentaNYL 100 mcg/2 ml 50 MCG/ML VIAL ONE ×2 (13:18→13:24)
== END 2023-08-03 16:49 | disposition home or self-care (01) | DRG 698 ==
LOC: EDHOLD 17:05 → ED 17:05 → SUATTDRO 20:11 → SSU 20:12
PROVIDERS: ADMIT Internal Medicine; ATTEND Internal Medicine

== ENCOUNTER 2023-11-09 10:26 | Inpatient (IN) ==
[2023-11-09] MEDS: HYDROmorphone 1 MG/1 ML SYRINGE IV ONE (11:22)
[2023-11-09 11:52] LABS: Venous Bicarbonate HCO3 16.7 mmol/L (24-28)
[2023-11-09 12:00] LABS: ABS Basophils 0.1 10^3/uL (0.0-0.1); ABS Eosinophils 0.1 10^3/uL (0.0-0.5); ABS Lymphocytes 0.4 10^3/uL (1.0-4.8); ABS Monocytes 0.6 10^3/uL (0.0-1.1); ABS Neutrophils 8.1 10^3/uL (1.5-7.6); ABS Nucleated RBC 0.01 10^3/ul; Eosinophil % 1.1 %; Hematocrit 25.7 % (38-53); Hemoglobin 8.7 g/dL (13.2-16.3); Mean Corpuscular Hemoglobin 32.1 pg (27-33); Mean Corpuscular Volume 94.4 fL (80-97); Mean Platelet Volume 8.2 fL (7.5-11.2); Nucleated Red Blood Cells % 0.1 %/100WBC (0.0-0.8); Platelet Count 186 10^3/uL (150-450); Red Blood Count 2.72 10^6/uL (4.06-5.63); Red Cell Distribution Width 18.5 % (12-17); White Blood Count 9.3 10^3/uL (3.6-10.2)
[2023-11-09 12:24] LABS: ALT 19 U/L (7-52); Albumin 3.8 g/dL (3.2-5.2); Alcohol, S < 13 mg/dL (<13); Alkaline Phosphatase 85 U/L (35-149); Anion Gap 21 mmol/L (2-16); Blood Urea Nitrogen 96 mg/dL (6-24); C Reactive Protein 339.49 mg/L (<8.01); CO2 Carbon Dioxide 18 mmol/L (22-32); Calcium 5.7 mg/dL (8.6-10.3); Chloride 92 mmol/L (101-111); Creatinine, Serum 16.81 mg/dL (0.67-1.17); Globulin 3.9 g/dL (2-4); Glucose 82 mg/dL (70-100); Sodium 131 mmol/L (135-145); Total Bilirubin 0.6 mg/dL (0.2-1.0); Total Protein 7.7 g/dL (6.4-8.9); eGFR CKD-EPI 3.3 (>60)
[2023-11-09 12:31] LABS: TSH Ultra Thyroid Stim Horm 2.04 mcIU/mL (0.34-5.60)
[2023-11-09 13:39] LABS: Magnesium 1.7 mg/dL (1.9-2.7); Potassium Redraw 7.8 mmol/L (3.5-5.0)
[2023-11-09] MEDS: Cefepime 2 GM in Dextrose 2 GM/50 ML BAG IV ONE (13:46)
[2023-11-09] MEDS: CALCIUM GLUCONATE 1GM/50ML NS 1 GM/50 ML BAG IV ONE (13:46)
[2023-11-09] MEDS ORDERED: NS 0.9% 1000 ml BAG 100 ML IV PRN (13:56)
[2023-11-09] MEDS ORDERED: NS 0.9% 1000 ml BAG 200 ML IV PRN (13:56)
[2023-11-09] MEDS: Dextrose 50% VIAL 50 ml IV ONE (14:11)
[2023-11-09] MEDS: Sodium Polystyrene ORAL.SUSP 15 GM/60 ML BTL PO ONE (14:14)
[2023-11-09] MEDS: Vancomycin 1,500 MG in NS 0.9% 250 ml 250 ML IVPB ONE (14:34)
[2023-11-09] MEDS ORDERED: fentaNYL 100 mcg/2 ml 50 MCG/ML VIAL IV SLOW PU PRN (16:08)
[2023-11-09] MEDS: Heparin 1,000 UNIT/ML 10 ml (10,000 UNITS) CATHLAB/DIALYSIS DIALYSIS PRN (16:10)
[2023-11-09] MEDS: Lidocaine 1% VIAL 10 MG/ML 30 ML VIAL ONE (16:17)
[2023-11-09] MEDS: fentaNYL 100 mcg/2 ml 50 MCG/ML VIAL IV SLOW PU PRN (16:35)
[2023-11-09] MEDS ORDERED: Zosyn per Pharmacy NOTE FOLLOW UP SCH (17:00)
[2023-11-09] MEDS ORDERED: Dextrose 50% Syringe 50 ml 25 GM/50 ML SYRINGE IV PUSH PRN (17:14)
[2023-11-09 18:22] LABS: Creatine Kinase 1747 U/L (10-223)
[2023-11-09 20:51] LABS: PCO2 Arterial 48 mmHg (35-45)
[2023-11-09] MEDS: metroNIDAZOLE IV 500 MG/100ML 500 MG/100 ML BAG IVPB SCH (20:56)
[2023-11-09 20:58] LABS: PO2 Arterial < 38 mmHg (80-100)
[2023-11-09] MEDS: Acetaminophen IV 1 GM/100ML 1,000 MG/100 ML BAG IV PRN (21:00)
[2023-11-09 22:54] LABS: Calcium 7.2 mg/dL (8.6-10.3); Creatinine, Serum 9.77 mg/dL (0.67-1.17); Magnesium 1.5 mg/dL (1.9-2.7); Potassium 4.8 mmol/L (3.5-5.0); eGFR CKD-EPI 6.4 (>60)
[2023-11-09] MEDS: Magnesium Sulfate 2 gm BAG 2 GM/50 ML BAG IVPB ONE (23:24)
[2023-11-09] MEDS: Lidocaine 1% MPF 5 ML VIAL INJ ONE (23:25)
[2023-11-09 23:28] LABS: Hepatitis B Surface Antigen Nonreactive (Nonreactive)
[2023-11-09 23:46] LABS: Hepatitis B Surface Ab Immune (Immune)
[2023-11-10] MEDS: Norepinephrine 16 MG/250mL NS 16,000 MCG/250 ML BAG IV SCH ×2 (00:01→23:36)
[2023-11-10] MEDS ORDERED: Vancomycin per Pharmacy 1 EA NOTE FOLLOW UP SCH (02:00)
[2023-11-10] MEDS: Magnesium Sulfate IV 1GM/100ML 1 GM/100 ML BAG IV ONE (03:00)
[2023-11-10 04:13] LABS: ABS Eosinophils 0.2 10^3/uL (0.0-0.5); ABS Lymphocytes 0.3 10^3/uL (1.0-4.8); ABS Monocytes 0.7 10^3/uL (0.0-1.1); ABS Neutrophils 6.9 10^3/uL (1.5-7.6); ABS Nucleated RBC 0.01 10^3/ul; Eosinophil % 2.4 %; Hematocrit 24.7 % (38-53); Hemoglobin 8.4 g/dL (13.2-16.3); Lymphocyte % 3.6 %; Mean Corpuscular Hemoglobin 32.5 pg (27-33); Mean Corpuscular Hgb Conc 33.9 g/dL (31-36); Mean Platelet Volume 8.7 fL (7.5-11.2); Nucleated Red Blood Cells % 0.1 %/100WBC (0.0-0.8); Platelet Count 151 10^3/uL (150-450); Red Blood Count 2.58 10^6/uL (4.06-5.63); Red Cell Distribution Width 18.3 % (12-17); White Blood Count 8.1 10^3/uL (3.6-10.2)
[2023-11-10 04:36] LABS: Calcium 6.8 mg/dL (8.6-10.3); Creatinine, Serum 9.71 mg/dL (0.67-1.17); Magnesium 2.9 mg/dL (1.9-2.7); Phosphorus 7.6 mg/dL (2.5-5.0); Potassium 5.1 mmol/L (3.5-5.0); Vancomycin Random 10.9 mcg/mL; eGFR CKD-EPI 6.5 (>60)
[2023-11-10 05:45] LABS: PCO2 Arterial 52 mmHg (35-45)
[2023-11-10 05:48] LABS: PO2 Arterial < 38 mmHg (80-100)
[2023-11-10 06:11] LABS: PCO2 Arterial 52 mmHg (35-45)
[2023-11-10 06:14] LABS: PO2 Arterial < 38 mmHg (80-100)
[2023-11-10 08:14] LABS: PCO2 Arterial 39 mmHg (35-45); PO2 Arterial 195 mmHg (80-100)
[2023-11-10] MEDS: Hydrocortisone INJ 100 MG/2ML 2 ML VIAL IV ONE (12:35)
[2023-11-10] MEDS: fentaNYL 100 mcg/2 ml 50 MCG/ML VIAL ONE (12:36)
[2023-11-10] MEDS: CALCIUM GLUCONATE 1GM/50ML NS 1 GM/50 ML BAG IV ONE (13:44)
[2023-11-10] MEDS: Cefepime 1 GM in Dextrose 1 GM/50 ML BAG IV SCH (13:51)
[2023-11-10] MEDS: Albumin Human 25% 25 GM/100 ML BTL IV PRN (15:35)
[2023-11-10] MEDS: Hydrocortisone INJ 100 MG/2ML 2 ML VIAL IV SCH (18:11)
[2023-11-10] MEDS: Vancomycin Random Level NOTE FOLLOW UP ONE (19:55)
[2023-11-10] MEDS: Enoxaparin 30 MG/0.3 ML SYR SUBCUT SCH (22:04)
[2023-11-11] MEDS: Vancomycin Random Level NOTE FOLLOW UP ONE (05:06)
[2023-11-11 05:52] LABS: Hematocrit 26.4 % (38-53); Hemoglobin 9.2 g/dL (13.2-16.3); Mean Corpuscular Hemoglobin 32.3 pg (27-33); Mean Corpuscular Hgb Conc 34.8 g/dL (31-36); Mean Corpuscular Volume 92.9 fL (80-97); Mean Platelet Volume 9.9 fL (7.5-11.2); Platelet Count 233 10^3/uL (150-450); Red Blood Count 2.84 10^6/uL (4.06-5.63); Red Cell Distribution Width 18.5 % (12-17); White Blood Count 8.3 10^3/uL (3.6-10.2)
[2023-11-11 06:20] LABS: Anion Gap 12 mmol/L (2-16); Blood Urea Nitrogen 38 mg/dL (6-24); CO2 Carbon Dioxide 25 mmol/L (22-32); Calcium 7.2 mg/dL (8.6-10.3); Chloride 94 mmol/L (101-111); Creatinine, Serum 6.72 mg/dL (0.67-1.17); Glucose 155 mg/dL (70-100); Sodium 131 mmol/L (135-145); Vancomycin Random 7.4 mcg/mL
[2023-11-11 07:35] LABS: ABS Nucleated RBC 0.01 10^3/ul; Nucleated Red Blood Cells % 0.1 %/100WBC (0.0-0.8)
[2023-11-11 07:36] LABS: Anisocytosis 1+
[2023-11-11] MEDS: Vancomycin 1,500 MG in NS 0.9% 250 ml 250 ML IVPB ONE (12:38)
[2023-11-11 14:36] LABS: Magnesium 2.2 mg/dL (1.9-2.7); Phosphorus 3.8 mg/dL (2.5-5.0); Potassium Redraw 3.7 mmol/L (3.5-5.0)
[2023-11-12 06:03] LABS: ABS Lymphocytes 0.7 10^3/uL (1.0-4.8); ABS Monocytes 0.7 10^3/uL (0.0-1.1); Hematocrit 27.3 % (38-53); Hemoglobin 9.2 g/dL (13.2-16.3); Lymphocyte % 7.3 %; Mean Corpuscular Hemoglobin 31.5 pg (27-33); Mean Corpuscular Hgb Conc 33.6 g/dL (31-36); Mean Corpuscular Volume 93.9 fL (80-97); Mean Platelet Volume 9.4 fL (7.5-11.2); Platelet Count 149 10^3/uL (150-450); Red Blood Count 2.91 10^6/uL (4.06-5.63); Red Cell Distribution Width 18.3 % (12-17); White Blood Count 9.4 10^3/uL (3.6-10.2)
[2023-11-12] MEDS: Vancomycin Trough Check NOTE FOLLOW UP ONE (06:24)
[2023-11-12 06:40] LABS: Calcium 7.5 mg/dL (8.6-10.3); Creatinine, Serum 7.5 mg/dL (0.67-1.17); Magnesium 2.2 mg/dL (1.9-2.7); Phosphorus 2.8 mg/dL (2.5-5.0); Potassium 3.9 mmol/L (3.5-5.0); Vancomycin Random 24.1 mcg/mL; eGFR CKD-EPI 8.8 (>60)
[2023-11-12] MEDS ORDERED: Propofol 10 MG/ML 20 ML BTL ONE (13:58)
[2023-11-12] MEDS ORDERED: fentaNYL 100 mcg/2 ml 50 MCG/ML VIAL ONE (14:00)
[2023-11-12 14:10] LABS: Activated Partial Thrombo Time 26.1 seconds (26.0-38.0); INR 1.05 (0.83-1.13)
[2023-11-12] MEDS: Ketamine HCL 50 mg/ml 10 ml VIAL (500 MG) ONE (14:53)
[2023-11-12] MEDS: Heparin 5000 UNITS/ML 1 mL VIAL SUBCUT SCH (20:22)
[2023-11-12] MEDS: Vancomycin 750 MG in NS 0.9% 250 ML IVPB ONE (20:22)
[2023-11-13 05:43] LABS: ABS Basophils 0.1 10^3/uL (0.0-0.1); ABS Lymphocytes 0.8 10^3/uL (1.0-4.8); ABS Monocytes 0.8 10^3/uL (0.0-1.1); ABS Neutrophils 5.9 10^3/uL (1.5-7.6); Hematocrit 27.1 % (38-53); Hemoglobin 9.1 g/dL (13.2-16.3); Lymphocyte % 11.2 %; Mean Corpuscular Hemoglobin 31.6 pg (27-33); Mean Corpuscular Hgb Conc 33.7 g/dL (31-36); Mean Corpuscular Volume 93.7 fL (80-97); Mean Platelet Volume 9.5 fL (7.5-11.2); Platelet Count 131 10^3/uL (150-450); Red Blood Count 2.89 10^6/uL (4.06-5.63); Red Cell Distribution Width 18.1 % (12-17); White Blood Count 7.5 10^3/uL (3.6-10.2)
[2023-11-13 06:29] LABS: Calcium 7.6 mg/dL (8.6-10.3); Creatinine, Serum 5.16 mg/dL (0.67-1.17); Magnesium 1.9 mg/dL (1.9-2.7); Phosphorus 2.5 mg/dL (2.5-5.0); Potassium 3.8 mmol/L (3.5-5.0); eGFR CKD-EPI 13.8 (>60)
[2023-11-14 05:11] LABS: Hematocrit 26.6 % (38-53); Hemoglobin 9.1 g/dL (13.2-16.3); Mean Corpuscular Hemoglobin 31.9 pg (27-33); Mean Corpuscular Hgb Conc 34.3 g/dL (31-36); Mean Platelet Volume 9.7 fL (7.5-11.2); Platelet Count 145 10^3/uL (150-450); Red Blood Count 2.86 10^6/uL (4.06-5.63); Red Cell Distribution Width 18.3 % (12-17); White Blood Count 7.8 10^3/uL (3.6-10.2)
[2023-11-14 05:26] LABS: ABS Monocytes 0.8 10^3/uL (0.0-1.1); ABS Neutrophils 5.9 10^3/uL (1.5-7.6); ABS Nucleated RBC 0.01 10^3/ul; Eosinophil % 0.1 %; Lymphocyte % 12.9 %; Nucleated Red Blood Cells % 0.2 %/100WBC (0.0-0.8)
[2023-11-14 05:58] LABS: Calcium 7.5 mg/dL (8.6-10.3); Creatinine, Serum 6.99 mg/dL (0.67-1.17); Magnesium 1.9 mg/dL (1.9-2.7); eGFR CKD-EPI 9.6 (>60)
[2023-11-14 06:01] LABS: Potassium 4.2 mmol/L (3.5-5.0)
[2023-11-14] MEDS: Hydrocortisone INJ 100 MG VIAL IV SCH (10:53)
[2023-11-15 04:44] LABS: Hematocrit 27.6 % (38-53); Hemoglobin 9.3 g/dL (13.2-16.3); Mean Corpuscular Hemoglobin 31.4 pg (27-33); Mean Corpuscular Hgb Conc 33.7 g/dL (31-36); Mean Corpuscular Volume 93.4 fL (80-97); Mean Platelet Volume 9.4 fL (7.5-11.2); Platelet Count 161 10^3/uL (150-450); Red Blood Count 2.95 10^6/uL (4.06-5.63); Red Cell Distribution Width 18.3 % (12-17); White Blood Count 9.2 10^3/uL (3.6-10.2)
[2023-11-15 05:31] LABS: ABS Basophils 0.1 10^3/uL (0.0-0.1); ABS Lymphocytes 1.2 10^3/uL (1.0-4.8); ABS Neutrophils 6.9 10^3/uL (1.5-7.6); Calcium 7.7 mg/dL (8.6-10.3); Creatinine, Serum 8.46 mg/dL (0.67-1.17); Eosinophil % 0.1 %; Lymphocyte % 12.7 %; Magnesium 1.9 mg/dL (1.9-2.7); Phosphorus 2.5 mg/dL (2.5-5.0); Potassium 4.4 mmol/L (3.5-5.0); Vancomycin Random 24.1 mcg/mL; eGFR CKD-EPI 7.6 (>60)
[2023-11-15] MEDS: Vancomycin Random Level NOTE FOLLOW UP ONE (07:05)
[2023-11-15] MEDS: Vancomycin 750 MG in NS 0.9% 250 ML IVPB ONE (14:02)
[2023-11-15 15:26] LABS: Hepatitis B Core IgM Nonreactive (Nonreactive)
[2023-11-15 15:39] LABS: Hepatitis B Surface Ab Immune (Immune)
[2023-11-16 05:36] LABS: ABS Monocytes 0.8 10^3/uL (0.0-1.1); Eosinophil % 0.1 %; Hematocrit 26.9 % (38-53); Lymphocyte % 9.5 %; Mean Corpuscular Hemoglobin 31.8 pg (27-33); Mean Corpuscular Hgb Conc 33.4 g/dL (31-36); Mean Platelet Volume 9.8 fL (7.5-11.2); Platelet Count 184 10^3/uL (150-450); Red Blood Count 2.83 10^6/uL (4.06-5.63); Red Cell Distribution Width 18.4 % (12-17); White Blood Count 10.9 10^3/uL (3.6-10.2)
[2023-11-16 06:00] LABS: Creatinine, Serum 6.4 mg/dL (0.67-1.17); Magnesium 1.8 mg/dL (1.9-2.7); Phosphorus 2.5 mg/dL (2.5-5.0); Potassium 4.2 mmol/L (3.5-5.0); eGFR CKD-EPI 10.6 (>60)
[2023-11-16] MEDS: Hydrocortisone INJ 100 MG/2ML 2 ML VIAL IV SCH (06:23)
[2023-11-16] MEDS: fentaNYL 100 mcg/2 ml 50 MCG/ML VIAL IV SLOW PU PRN (14:38)
[2023-11-17 07:13] LABS: Hematocrit 25.1 % (38-53); Hemoglobin 8.4 g/dL (13.2-16.3); Mean Corpuscular Hemoglobin 31.5 pg (27-33); Mean Corpuscular Hgb Conc 33.4 g/dL (31-36); Mean Corpuscular Volume 94.1 fL (80-97); Mean Platelet Volume 9.3 fL (7.5-11.2); Platelet Count 206 10^3/uL (150-450); Red Blood Count 2.67 10^6/uL (4.06-5.63); Red Cell Distribution Width 18.8 % (12-17); White Blood Count 11.7 10^3/uL (3.6-10.2)
[2023-11-17 09:41] LABS: ABS Monocytes 1.3 10^3/uL (0.0-1.1); ABS Neutrophils 9.4 10^3/uL (1.5-7.6); ABS Nucleated RBC 0.02 10^3/ul; Eosinophil % 0.1 %; Lymphocyte % 8.6 %; Nucleated Red Blood Cells % 0.1 %/100WBC (0.0-0.8)
[2023-11-17] MEDS: Vancomycin Random Level NOTE FOLLOW UP ONE (11:32)
[2023-11-17] MEDS: Hydrocortisone INJ 100 MG/2ML 2 ML VIAL IV SCH (15:27)
[2023-11-17] MEDS: Vancomycin 500 MG in NS 0.9% 250 ML IVPB ONE (16:55)
[2023-11-18] MEDS ORDERED: Vancomycin Random Level NOTE FOLLOW UP ONE (06:00)
[2023-11-18 08:19] LABS: ABS Lymphocytes 1.5 10^3/uL (1.0-4.8); ABS Monocytes 1.5 10^3/uL (0.0-1.1); ABS Neutrophils 9.7 10^3/uL (1.5-7.6); ABS Nucleated RBC 0.01 10^3/ul; Hematocrit 25.6 % (38-53); Hemoglobin 8.6 g/dL (13.2-16.3); Lymphocyte % 11.7 %; Mean Corpuscular Hemoglobin 31.2 pg (27-33); Mean Corpuscular Hgb Conc 33.4 g/dL (31-36); Mean Corpuscular Volume 93.3 fL (80-97); Mean Platelet Volume 8.9 fL (7.5-11.2); Platelet Count 268 10^3/uL (150-450); Red Blood Count 2.75 10^6/uL (4.06-5.63); Red Cell Distribution Width 18.7 % (12-17); White Blood Count 12.8 10^3/uL (3.6-10.2)
[2023-11-18 08:26] LABS: Calcium 7.7 mg/dL (8.6-10.3); Creatinine, Serum 5.24 mg/dL (0.67-1.17); Magnesium 1.8 mg/dL (1.9-2.7); Vancomycin Random 22.7 mcg/mL; eGFR CKD-EPI 13.5 (>60)
[2023-11-18] MEDS: Hydrocortisone INJ 100 MG/2ML 2 ML VIAL IV SCH (17:35)
[2023-11-19 05:24] LABS: ABS Lymphocytes 1.8 10^3/uL (1.0-4.8); ABS Monocytes 1.5 10^3/uL (0.0-1.1); ABS Neutrophils 9.4 10^3/uL (1.5-7.6); ABS Nucleated RBC 0.01 10^3/ul; Eosinophil % 0.1 %; Hematocrit 26.3 % (38-53); Lymphocyte % 14.4 %; Mean Corpuscular Hemoglobin 31.6 pg (27-33); Mean Platelet Volume 8.2 fL (7.5-11.2); Nucleated Red Blood Cells % 0.1 %/100WBC (0.0-0.8); Platelet Count 308 10^3/uL (150-450); Red Blood Count 2.83 10^6/uL (4.06-5.63); White Blood Count 12.7 10^3/uL (3.6-10.2)
[2023-11-19 05:49] LABS: Calcium 7.7 mg/dL (8.6-10.3); Creatinine, Serum 6.87 mg/dL (0.67-1.17); Magnesium 1.9 mg/dL (1.9-2.7); Potassium 3.9 mmol/L (3.5-5.0); eGFR CKD-EPI 9.8 (>60)
[2023-11-19] MEDS: Hydrocortisone INJ 100 MG/2ML 2 ML VIAL IV SCH (10:56)
[2023-11-19] MEDS: Vancomycin 500 MG in NS 0.9% 250 ML IVPB ONE (15:11)
[2023-11-20] MEDS: Hemorrhoidal OINT 1 TUBE PR PRN (15:55)
[2023-11-21 09:47] VITALS: BP 128/64
[2023-11-22] MEDS ORDERED: Vancomycin Random Level NOTE FOLLOW UP ONE (06:00)
== END 2023-11-21 11:15 | disposition home or self-care (01) | DRG 640 ==
LOC: ED 10:26 → EDHOLD 14:33 → SUATTDRO 14:33 → ICU 15:01 → MED 11-15 21:23
PROVIDERS: ADMIT Internal Medicine Pulmonary Disease; ATTEND Hospitalist
PROC: O.CATEE (2023-11-12 14:45)

== ENCOUNTER 2024-01-06 12:09 | Inpatient (IN) ==
[2024-01-06 12:43] LABS: Hematocrit 27.8 % (38-53); Hemoglobin 9.5 g/dL (13.2-16.3); Mean Corpuscular Hemoglobin 30.9 pg (27-33); Mean Platelet Volume 9.4 fL (7.5-11.2); Platelet Count 165 10^3/uL (150-450); Red Blood Count 3.06 10^6/uL (4.06-5.63); Red Cell Distribution Width 17.6 % (12-17); White Blood Count 14.4 10^3/uL (3.6-10.2)
[2024-01-06 13:19] LABS: INR 1.4 (0.83-1.13)
[2024-01-06 13:37] LABS: Albumin 4.1 g/dL (3.2-5.2); Albumin/Globulin Ratio 1.1 (1-3); Calcium 7.9 mg/dL (8.6-10.3); Creatinine, Serum 10.99 mg/dL (0.67-1.17); Globulin 3.9 g/dL (2-4); Potassium 4.4 mmol/L (3.5-5.0); Total Bilirubin 1.1 mg/dL (0.2-1.0); eGFR CKD-EPI 5.6 (>60)
[2024-01-06 13:45] LABS: ABS Basophils 0.1 10^3/uL (0.0-0.1); ABS Eosinophils 0.2 10^3/uL (0.0-0.5); ABS Lymphocytes 0.4 10^3/uL (1.0-4.8); ABS Monocytes 1.1 10^3/uL (0.0-1.1); ABS Neutrophils 12.6 10^3/uL (1.5-7.6); Eosinophil % 1.7 %; Lymphocyte % 2.9 %
[2024-01-06 14:43] LABS: High Sensitivity Troponin 1 Hr 24 pg/mL (<20)
[2024-01-06] MEDS ORDERED: NS 0.9% 1000 ml BAG 200 ML IV PRN (14:57)
[2024-01-06] MEDS ORDERED: NS 0.9% 1000 ml BAG 100 ML IV PRN (14:57)
[2024-01-06] MEDS: HYDROmorphone 0.5 MG/0.5 ML SYRINGE IV ONE ×2 (16:21→18:53)
[2024-01-06] MEDS: Acetaminophen IV 1 GM/100ML 1,000 MG/100 ML BAG IV ONE (16:26)
[2024-01-06 16:58] LABS: High Sensitivity Troponin 3 Hr 24 pg/mL (<20)
[2024-01-06] MEDS: Cefepime 2 GM in Dextrose 2 GM/50 ML BAG IV ONE (17:17)
[2024-01-06 18:33] LABS: Hepatitis B Surface Antigen Nonreactive (Nonreactive)
[2024-01-06] MEDS: metroNIDAZOLE IV 500 MG/100ML 500 MG/100 ML BAG IVPB ONE (18:48)
[2024-01-06 18:50] LABS: Hepatitis B Surface Ab Immune (Immune)
[2024-01-06] MEDS: NS 0.9% 500 ml BAG 500 ML IV ONE (18:54)
[2024-01-06] MEDS: fentaNYL 100 mcg/2 ml 50 MCG/ML VIAL IV SLOW PU ONE (19:39)
[2024-01-06] MEDS: Linezolid 600 MG IVPREMIX(*) 600 MG/300 ML BAG IVPB ONE (20:53)
[2024-01-06] MEDS: fentaNYL 100 mcg/2 ml 50 MCG/ML VIAL IV SLOW PU PRN (23:37)
[2024-01-07] MEDS: metroNIDAZOLE IV 500 MG/100ML 500 MG/100 ML BAG IVPB SCH (03:04)
[2024-01-07] MEDS: Norepinephrine 4 MG/250mL D5W 4,000 MCG/250 ML BAG IV SCH ×2 (03:24→21:06)
[2024-01-07 05:11] LABS: Hematocrit 26.1 % (38-53); Hemoglobin 8.8 g/dL (13.2-16.3); Mean Corpuscular Hemoglobin 30.7 pg (27-33); Mean Corpuscular Hgb Conc 33.8 g/dL (31-36); Mean Corpuscular Volume 90.8 fL (80-97); Red Blood Count 2.87 10^6/uL (4.06-5.63); White Blood Count 18.9 10^3/uL (3.6-10.2)
[2024-01-07 05:43] LABS: Calcium 7.3 mg/dL (8.6-10.3); Creatinine, Serum 11.48 mg/dL (0.67-1.17); Magnesium 1.6 mg/dL (1.9-2.7); Potassium 4.4 mmol/L (3.5-5.0); eGFR CKD-EPI 5.3 (>60)
[2024-01-07] MEDS: Heparin 1,000 UNIT/ML 10 ml (10,000 UNITS) CATHLAB/DIALYSIS DIALYSIS PRN (07:40)
[2024-01-07 07:45] LABS: Mean Platelet Volume 9.6 fL (7.5-11.2); Platelet Count 192 10^3/uL (150-450)
[2024-01-07 07:47] LABS: ABS Basophils 0.1 10^3/uL (0.0-0.1); ABS Eosinophils 0.2 10^3/uL (0.0-0.5); ABS Lymphocytes 0.8 10^3/uL (1.0-4.8); ABS Monocytes 1.6 10^3/uL (0.0-1.1); ABS Neutrophils 16.2 10^3/uL (1.5-7.6); Eosinophil % 1.1 %; Lymphocyte % 4.2 %
[2024-01-07] MEDS ORDERED: Linezolid 600 MG IVPREMIX(*) 600 MG/300 ML BAG IVPB SCH ×2 (09:00→12:30)
[2024-01-07] MEDS: Albumin Human 25% 25 GM/100 ML BTL IV PRN (10:01)
[2024-01-07] MEDS ORDERED: Vancomycin per Pharmacy 1 EA NOTE FOLLOW UP SCH ×2 (11:00→14:00)
[2024-01-07] MEDS: Vancomycin 1,000 MG in NS 0.9% 250 ml 250 ML IVPB ONE (13:04)
[2024-01-07] MEDS ORDERED: Vancomycin - DIALYSIS DOSING 1 EA NOTE FOLLOW UP SCH (14:00)
[2024-01-07 17:04] LABS: Calcium 7.9 mg/dL (8.6-10.3); Magnesium 1.6 mg/dL (1.9-2.7); Potassium 4.1 mmol/L (3.5-5.0)
[2024-01-07] MEDS ORDERED: KETAMINE HCL 10 MG/ML 20 ml VIAL (200 MG) ONE (17:18)
[2024-01-07] MEDS ORDERED: Glycopyrrolate IV 0.2 MG/ML 1 ML VIAL ONE (17:18)
[2024-01-07] MEDS ORDERED: Propofol 10 MG/ML 20 ML BTL ONE (17:18)
[2024-01-07] MEDS: Magnesium Sulfate 2 gm BAG 2 GM/50 ML BAG IVPB ONE (17:19)
[2024-01-07] MEDS ORDERED: Phenylephrine 40 mcg/mL 10mL (400mcg) SYRINGE ONE (17:19)
[2024-01-07 17:56] LABS: Creatinine, Serum 6.37 mg/dL (0.67-1.17); eGFR CKD-EPI 10.7 (>60)
[2024-01-07] MEDS ORDERED: Cefepime ADVAN 0.5 GM in NS 0.9% 50 ML 50 ML IVPB SCH (18:00)
[2024-01-07] MEDS ORDERED: Cefepime 0.5 GM in NS 0.9% 50 ML 50 ML IVPB SCH (18:00)
[2024-01-07] MEDS: Magnesium Sulfate IV 1GM/100ML 1 GM/100 ML BAG IV ONE (19:36)
[2024-01-08 05:14] LABS: Hematocrit 26.1 % (38-53); Hemoglobin 8.9 g/dL (13.2-16.3); Mean Corpuscular Hemoglobin 30.6 pg (27-33); Mean Corpuscular Hgb Conc 33.9 g/dL (31-36); Mean Corpuscular Volume 90.3 fL (80-97); Mean Platelet Volume 9.3 fL (7.5-11.2); Platelet Count 264 10^3/uL (150-450); Red Blood Count 2.89 10^6/uL (4.06-5.63); Red Cell Distribution Width 17.1 % (12-17); White Blood Count 21.3 10^3/uL (3.6-10.2)
[2024-01-08 05:29] LABS: Calcium 7.7 mg/dL (8.6-10.3); Creatinine, Serum 7.22 mg/dL (0.67-1.17); Magnesium 2.7 mg/dL (1.9-2.7); Potassium 3.8 mmol/L (3.5-5.0); Vancomycin Random 16.9 mcg/mL; eGFR CKD-EPI 9.2 (>60)
[2024-01-08] MEDS: Vancomycin Random Level NOTE FOLLOW UP ONE (06:20)
[2024-01-08 13:12] LABS: ABS Nucleated RBC 0.01 10^3/ul; Acanthocytes 1+; Anisocytosis 1+; Hypochromasia 1+; Microcytosis 1+; Target Cells 1+; Tear Drop Cells 1+
[2024-01-08] MEDS: HYDROmorphone 1 MG/1 ML SYRINGE IV ONE (15:52)
[2024-01-08] MEDS: HYDROmorphone 1 MG/1 ML SYRINGE IV PRN (18:35)
[2024-01-09 04:53] LABS: Hemoglobin 8.8 g/dL (13.2-16.3); Mean Corpuscular Hemoglobin 30.9 pg (27-33); Mean Corpuscular Hgb Conc 33.8 g/dL (31-36); Mean Corpuscular Volume 91.3 fL (80-97); Platelet Count 281 10^3/uL (150-450); Red Blood Count 2.84 10^6/uL (4.06-5.63); Red Cell Distribution Width 17.2 % (12-17)
[2024-01-09 05:01] LABS: Calcium 7.9 mg/dL (8.6-10.3); Creatinine, Serum 8.79 mg/dL (0.67-1.17); Magnesium 2.6 mg/dL (1.9-2.7); Potassium 3.8 mmol/L (3.5-5.0); Vancomycin Random 13.1 mcg/mL; eGFR CKD-EPI 7.3 (>60)
[2024-01-09 05:27] LABS: ABS Eosinophils 0.2 10^3/ul (0.0-0.5); ABS Lymphocytes 2.2 10^3/ul (1.0-4.8); ABS Monocytes 0.7 10^3/ul (0.0-1.1); ABS Neutrophils 18.9 10^3/ul (1.5-7.6)
[2024-01-09 05:28] LABS: Anisocytosis 1+; Macrocytosis 1+
[2024-01-09] MEDS: Vancomycin Random Level NOTE FOLLOW UP ONE (05:52)
[2024-01-09] MEDS: Heparin 5000 UNITS/ML 1 mL VIAL SUBCUT SCH (12:47)
[2024-01-09] MEDS ORDERED: fentaNYL 100 mcg/2 ml 50 MCG/ML VIAL IV SLOW PU PRN (15:02)
[2024-01-09] MEDS ORDERED: Naloxone Nasal Spray 4 MG/0.1 ML NASAL.SPR INTRANASAL PRN (15:03)
[2024-01-09] MEDS: fentaNYL 100 mcg/2 ml 50 MCG/ML VIAL IV SLOW PU PRN (18:25)
[2024-01-10 04:48] LABS: Hematocrit 22.9 % (38-53); Hemoglobin 7.7 g/dL (13.2-16.3); Mean Corpuscular Hemoglobin 30.3 pg (27-33); Mean Corpuscular Hgb Conc 33.7 g/dL (31-36); Mean Platelet Volume 8.4 fL (7.5-11.2); Platelet Count 322 10^3/uL (150-450); Red Blood Count 2.55 10^6/uL (4.06-5.63); Red Cell Distribution Width 17.4 % (12-17); White Blood Count 18.9 10^3/uL (3.6-10.2)
[2024-01-10 05:08] LABS: ABS Basophils 0.3 10^3/uL (0.0-0.1); ABS Eosinophils 0.2 10^3/uL (0.0-0.5); ABS Lymphocytes 3.7 10^3/uL (1.0-4.8); ABS Monocytes 1.7 10^3/uL (0.0-1.1); Anisocytosis 1+; Lymphocyte % 19.7 %
[2024-01-10 05:21] LABS: Calcium 8.1 mg/dL (8.6-10.3); Creatinine, Serum 10.28 mg/dL (0.67-1.17); Magnesium 2.6 mg/dL (1.9-2.7); Potassium 4.1 mmol/L (3.5-5.0); Vancomycin Random 13.2 mcg/mL
[2024-01-10] MEDS: Vancomycin Random Level NOTE FOLLOW UP ONE (05:22)
[2024-01-10] MEDS: fentaNYL 100 mcg/2 ml 50 MCG/ML VIAL IV SLOW PU ONE (06:34)
[2024-01-10] MEDS: Vancomycin 500 MG in NS 0.9% 250 ML IVPB ONE (17:23)
[2024-01-11] MEDS ORDERED: fentaNYL 100 mcg/2 ml 50 MCG/ML VIAL IV SLOW PU PRN (04:28)
[2024-01-11 05:04] LABS: Hematocrit 22.3 % (38-53); Hemoglobin 7.7 g/dL (13.2-16.3); Mean Corpuscular Hemoglobin 31.2 pg (27-33); Mean Corpuscular Hgb Conc 34.6 g/dL (31-36); Mean Corpuscular Volume 90.3 fL (80-97); Mean Platelet Volume 7.7 fL (7.5-11.2); Platelet Count 369 10^3/uL (150-450); Red Blood Count 2.46 10^6/uL (4.06-5.63); Red Cell Distribution Width 17.6 % (12-17); White Blood Count 16.8 10^3/uL (3.6-10.2)
[2024-01-11] MEDS: fentaNYL 100 mcg/2 ml 50 MCG/ML VIAL IV SLOW PU PRN (05:53)
[2024-01-11 06:00] LABS: ABS Basophils 0.1 10^3/uL (0.0-0.1); ABS Eosinophils 0.1 10^3/uL (0.0-0.5); ABS Lymphocytes 1.8 10^3/uL (1.0-4.8); ABS Monocytes 1.4 10^3/uL (0.0-1.1); ABS Neutrophils 13.3 10^3/uL (1.5-7.6); ABS Nucleated RBC 0.01 10^3/ul; Anisocytosis 1+; Eosinophil % 0.8 %; Lymphocyte % 10.9 %
[2024-01-11 06:14] LABS: Calcium 8.5 mg/dL (8.6-10.3); Creatinine, Serum 6.25 mg/dL (0.67-1.17); Potassium 3.6 mmol/L (3.5-5.0)
[2024-01-11] MEDS ORDERED: Linezolid 600 MG IVPREMIX(*) 600 MG/300 ML BAG IVPB SCH (09:00)
[2024-01-11] MEDS: HYDROmorphone 1 MG/1 ML SYRINGE IV PRN (15:19)
[2024-01-12] MEDS ORDERED: Vancomycin Random Level NOTE FOLLOW UP ONE (06:00)
[2024-01-12 08:44] LABS: Hematocrit 22.7 % (38-53); Hemoglobin 7.5 g/dL (13.2-16.3); Mean Corpuscular Hemoglobin 30.3 pg (27-33); Mean Corpuscular Volume 91.9 fL (80-97); Mean Platelet Volume 8.2 fL (7.5-11.2); Platelet Count 420 10^3/uL (150-450); Red Blood Count 2.47 10^6/uL (4.06-5.63); Red Cell Distribution Width 17.7 % (12-17); White Blood Count 16.9 10^3/uL (3.6-10.2)
[2024-01-12 08:50] LABS: Calcium 8.9 mg/dL (8.6-10.3); Creatinine, Serum 8.66 mg/dL (0.67-1.17); Potassium 4.2 mmol/L (3.5-5.0); eGFR CKD-EPI 7.4 (>60)
[2024-01-12 09:25] LABS: ABS Basophils 0.2 10^3/uL (0.0-0.1); ABS Eosinophils 0.2 10^3/uL (0.0-0.5); ABS Monocytes 1.3 10^3/uL (0.0-1.1); ABS Neutrophils 13.2 10^3/uL (1.5-7.6); ABS Nucleated RBC 0.01 10^3/ul; Eosinophil % 1.1 %; Hypochromasia 2+; Lymphocyte % 11.9 %; Nucleated Red Blood Cells % 0.1 %/100WBC (0.0-0.8); Target Cells 1+
[2024-01-12] MEDS: Vancomycin 500 MG in NS 0.9% 250 ML IVPB SCH (21:02)
[2024-01-13 06:28] LABS: Hematocrit 21.7 % (38-53); Hemoglobin 7.3 g/dL (13.2-16.3); Mean Corpuscular Hemoglobin 30.3 pg (27-33); Mean Corpuscular Hgb Conc 33.5 g/dL (31-36); Mean Corpuscular Volume 90.5 fL (80-97); Platelet Count 396 10^3/uL (150-450); Red Cell Distribution Width 17.9 % (12-17); White Blood Count 21.7 10^3/uL (3.6-10.2)
[2024-01-13 06:49] LABS: Calcium 8.7 mg/dL (8.6-10.3); Creatinine, Serum 5.26 mg/dL (0.67-1.17); Magnesium 1.7 mg/dL (1.9-2.7); Potassium 3.9 mmol/L (3.5-5.0); eGFR CKD-EPI 13.5 (>60)
[2024-01-13 07:35] LABS: ABS Basophils 0.1 10^3/uL (0.0-0.1); ABS Eosinophils 0.1 10^3/uL (0.0-0.5); ABS Lymphocytes 1.6 10^3/uL (1.0-4.8); ABS Monocytes 1.3 10^3/uL (0.0-1.1); ABS Neutrophils 18.6 10^3/uL (1.5-7.6); Eosinophil % 0.3 %; Lymphocyte % 7.4 %
[2024-01-13 07:36] LABS: Anisocytosis 1+; Hypochromasia 2+; Microcytosis 1+; Target Cells 1+
[2024-01-13] MEDS: Magnesium Sulfate 2 gm BAG 2 GM/50 ML BAG IVPB ONE (08:45)
[2024-01-13] MEDS: HYDROmorphone 0.5 MG/0.5 ML SYRINGE IV PRN (11:37)
[2024-01-13] MEDS: HYDROmorphone 1 MG/1 ML SYRINGE IV SLOW PU PRN ×2 (17:36→21:02)
[2024-01-14 06:55] LABS: Calcium 8.8 mg/dL (8.6-10.3); Creatinine, Serum 6.95 mg/dL (0.67-1.17); Magnesium 2.4 mg/dL (1.9-2.7); Potassium 4.3 mmol/L (3.5-5.0); eGFR CKD-EPI 9.6 (>60)
[2024-01-14 06:58] LABS: Hemoglobin 7.2 g/dL (13.2-16.3); Mean Corpuscular Hemoglobin 30.2 pg (27-33); Mean Corpuscular Hgb Conc 32.6 g/dL (31-36); Mean Corpuscular Volume 92.6 fL (80-97); Mean Platelet Volume 8.6 fL (7.5-11.2); Platelet Count 387 10^3/uL (150-450); Red Blood Count 2.38 10^6/uL (4.06-5.63); Red Cell Distribution Width 18.2 % (12-17); White Blood Count 20.9 10^3/uL (3.6-10.2)
[2024-01-14 07:37] LABS: ABS Basophils 0.1 10^3/uL (0.0-0.1); ABS Eosinophils 0.1 10^3/uL (0.0-0.5); ABS Lymphocytes 1.1 10^3/uL (1.0-4.8); ABS Monocytes 1.2 10^3/uL (0.0-1.1); ABS Neutrophils 18.4 10^3/uL (1.5-7.6); ABS Nucleated RBC 0.01 10^3/ul; Eosinophil % 0.3 %; Lymphocyte % 5.4 %
[2024-01-15 06:56] LABS: Hematocrit 20.3 % (38-53); Hemoglobin 7.2 g/dL (13.2-16.3); Mean Corpuscular Hemoglobin 31.4 pg (27-33); Mean Corpuscular Hgb Conc 35.3 g/dL (31-36); Mean Corpuscular Volume 88.9 fL (80-97); Mean Platelet Volume 7.6 fL (7.5-11.2); Platelet Count 413 10^3/uL (150-450); Red Blood Count 2.28 10^6/uL (4.06-5.63); Red Cell Distribution Width 17.7 % (12-17); White Blood Count 10.8 10^3/uL (3.6-10.2)
[2024-01-15 07:13] LABS: Creatinine, Serum 5.62 mg/dL (0.67-1.17); Potassium 3.7 mmol/L (3.5-5.0); eGFR CKD-EPI 12.4 (>60)
[2024-01-15] MEDS: HYDROmorphone 1 MG/1 ML SYRINGE IV SLOW PU PRN (19:15)
[2024-01-16 07:33] LABS: Hematocrit 22.7 % (38-53); Hemoglobin 7.7 g/dL (13.2-16.3); Mean Corpuscular Hemoglobin 30.9 pg (27-33); Mean Corpuscular Hgb Conc 33.9 g/dL (31-36); Mean Platelet Volume 7.9 fL (7.5-11.2); Platelet Count 426 10^3/uL (150-450); Red Blood Count 2.49 10^6/uL (4.06-5.63); Red Cell Distribution Width 17.6 % (12-17); White Blood Count 9.9 10^3/uL (3.6-10.2)
[2024-01-16 07:57] LABS: Creatinine, Serum 7.35 mg/dL (0.67-1.17); Potassium 4.1 mmol/L (3.5-5.0)
[2024-01-16 08:33] LABS: Magnesium 2.1 mg/dL (1.9-2.7)
[2024-01-16] MEDS ORDERED: HYDROcodone/ACETAMIN 5/325 mg TAB PO PRN ×2 (09:38→15:18)
[2024-01-16] MEDS ORDERED: guaiFENesin/CODIENE 100mg/10mg 5 ML UDC PO PRN (15:19)
[2024-01-16] MEDS: Magnesium Sulfate 2 gm BAG 2 GM/50 ML BAG IVPB ONE (17:09)
[2024-01-16] MEDS: HYDROcodone/Acetamin 10/325 TAB (NF) PO PRN (17:34)
[2024-01-16] MEDS: HYDROmorphone 1 MG/1 ML SYRINGE IV SLOW PU PRN (19:33)
[2024-01-17 06:30] LABS: Hemoglobin 6.9 g/dL (13.2-16.3); Mean Corpuscular Hemoglobin 31.1 pg (27-33); Mean Corpuscular Hgb Conc 34.5 g/dL (31-36); Mean Corpuscular Volume 90.1 fL (80-97); Mean Platelet Volume 7.4 fL (7.5-11.2); Platelet Count 420 10^3/uL (150-450); Red Blood Count 2.23 10^6/uL (4.06-5.63); Red Cell Distribution Width 17.2 % (12-17); White Blood Count 9.1 10^3/uL (3.6-10.2)
[2024-01-17 06:51] LABS: Creatinine, Serum 8.89 mg/dL (0.67-1.17); Magnesium 2.7 mg/dL (1.9-2.7); Potassium 4.7 mmol/L (3.5-5.0); eGFR CKD-EPI 7.2 (>60)
[2024-01-18 05:36] LABS: Hematocrit 22.6 % (38-53); Hemoglobin 7.6 g/dL (13.2-16.3); Mean Corpuscular Hemoglobin 30.7 pg (27-33); Mean Corpuscular Hgb Conc 33.7 g/dL (31-36); Mean Platelet Volume 7.6 fL (7.5-11.2); Platelet Count 399 10^3/uL (150-450); Red Blood Count 2.49 10^6/uL (4.06-5.63); Red Cell Distribution Width 17.7 % (12-17)
[2024-01-18 06:18] LABS: Calcium 8.9 mg/dL (8.6-10.3); Creatinine, Serum 6.34 mg/dL (0.67-1.17); Potassium 4.4 mmol/L (3.5-5.0); eGFR CKD-EPI 10.8 (>60)
[2024-01-18] MEDS ORDERED: NS 0.9% 1000 ml BAG 100 ML IV PRN (07:43)
[2024-01-18] MEDS ORDERED: NS 0.9% 1000 ml BAG 200 ML IV PRN (07:43)
[2024-01-18] MEDS: HYDROmorphone 1 MG/1 ML SYRINGE IV SLOW PU PRN (17:24)
[2024-01-19 07:03] LABS: ABS Basophils 0.1 10^3/uL (0.0-0.1); ABS Eosinophils 0.1 10^3/uL (0.0-0.5); ABS Lymphocytes 0.8 10^3/uL (1.0-4.8); ABS Monocytes 0.8 10^3/uL (0.0-1.1); ABS Neutrophils 6.7 10^3/uL (1.5-7.6); Eosinophil % 0.8 %; Hematocrit 20.2 % (38-53); Hemoglobin 6.9 g/dL (13.2-16.3); Lymphocyte % 9.7 %; Mean Corpuscular Hemoglobin 30.7 pg (27-33); Mean Corpuscular Hgb Conc 34.2 g/dL (31-36); Mean Corpuscular Volume 89.8 fL (80-97); Mean Platelet Volume 7.6 fL (7.5-11.2); Platelet Count 355 10^3/uL (150-450); Red Blood Count 2.25 10^6/uL (4.06-5.63); Red Cell Distribution Width 17.2 % (12-17); White Blood Count 8.4 10^3/uL (3.6-10.2)
[2024-01-19 09:04] LABS: Calcium 8.5 mg/dL (8.6-10.3); Creatinine, Serum 7.99 mg/dL (0.67-1.17); Magnesium 2.2 mg/dL (1.9-2.7); Phosphorus 2.8 mg/dL (2.5-5.0); Potassium 4.8 mmol/L (3.5-5.0); eGFR CKD-EPI 8.2 (>60)
[2024-01-20 07:10] LABS: ABS Basophils 0.1 10^3/uL (0.0-0.1); ABS Eosinophils 0.1 10^3/uL (0.0-0.5); ABS Monocytes 0.8 10^3/uL (0.0-1.1); ABS Neutrophils 9.4 10^3/uL (1.5-7.6); ABS Nucleated RBC 0.01 10^3/ul; Eosinophil % 0.5 %; Hematocrit 20.4 % (38-53); Hemoglobin 6.8 g/dL (13.2-16.3); Lymphocyte % 8.8 %; Mean Corpuscular Hemoglobin 29.9 pg (27-33); Mean Corpuscular Hgb Conc 33.2 g/dL (31-36); Mean Corpuscular Volume 90.2 fL (80-97); Nucleated Red Blood Cells % 0.1 %/100WBC (0.0-0.8); Platelet Count 397 10^3/uL (150-450); Red Blood Count 2.26 10^6/uL (4.06-5.63); Red Cell Distribution Width 17.1 % (12-17); White Blood Count 11.4 10^3/uL (3.6-10.2)
[2024-01-20 07:44] LABS: Calcium 8.3 mg/dL (8.6-10.3); Creatinine, Serum 9.27 mg/dL (0.67-1.17); Potassium 5.2 mmol/L (3.5-5.0); eGFR CKD-EPI 6.8 (>60)
[2024-01-20 13:20] LABS: Ferritin 1418.2 ng/mL (24-336)
[2024-01-20] MEDS: Heparin 1,000 UNIT/ML 10 ml (10,000 UNITS) CATHLAB/DIALYSIS DIALYSIS PRN (13:37)
[2024-01-20] MEDS: Vancomycin 500 MG in NS 0.9% 250 ML IVPB ONE (20:56)
[2024-01-20] MEDS: Heparin 5000 UNITS/ML 1 mL VIAL SUBCUT SCH (20:56)
[2024-01-21 06:06] LABS: ABS Basophils 0.1 10^3/uL (0.0-0.1); ABS Eosinophils 0.1 10^3/uL (0.0-0.5); ABS Lymphocytes 0.9 10^3/uL (1.0-4.8); ABS Monocytes 0.9 10^3/uL (0.0-1.1); ABS Neutrophils 8.1 10^3/uL (1.5-7.6); ABS Nucleated RBC 0.02 10^3/ul; Eosinophil % 0.9 %; Hematocrit 18.8 % (38-53); Hemoglobin 6.5 g/dL (13.2-16.3); Lymphocyte % 9.2 %; Mean Corpuscular Hgb Conc 34.3 g/dL (31-36); Mean Corpuscular Volume 90.4 fL (80-97); Mean Platelet Volume 7.9 fL (7.5-11.2); Nucleated Red Blood Cells % 0.2 %/100WBC (0.0-0.8); Platelet Count 371 10^3/uL (150-450); Red Blood Count 2.08 10^6/uL (4.06-5.63); Red Cell Distribution Width 17.1 % (12-17)
[2024-01-21 06:38] LABS: Calcium 8.1 mg/dL (8.6-10.3); Creatinine, Serum 7.12 mg/dL (0.67-1.17); Potassium 4.6 mmol/L (3.5-5.0); eGFR CKD-EPI 9.4 (>60)
[2024-01-21] MEDS: Albumin Human 25% 25 GM/100 ML BTL IV PRN (11:57)
[2024-01-21] MEDS ORDERED: Polyethylene Glycol 3350 17 GM PACKET PO PRN (12:56)
[2024-01-21] MEDS ORDERED: Senna TAB 8.6 mg TAB PO PRN (12:56)
[2024-01-22 07:06] LABS: ABS Basophils 0.1 10^3/uL (0.0-0.1); ABS Eosinophils 0.1 10^3/uL (0.0-0.5); ABS Lymphocytes 0.9 10^3/uL (1.0-4.8); ABS Monocytes 1.1 10^3/uL (0.0-1.1); ABS Nucleated RBC 0.01 10^3/ul; Eosinophil % 1.3 %; Hematocrit 21.1 % (38-53); Hemoglobin 7.1 g/dL (13.2-16.3); Lymphocyte % 9.1 %; Mean Corpuscular Hemoglobin 30.7 pg (27-33); Mean Corpuscular Hgb Conc 33.6 g/dL (31-36); Mean Corpuscular Volume 91.4 fL (80-97); Mean Platelet Volume 7.8 fL (7.5-11.2); Nucleated Red Blood Cells % 0.1 %/100WBC (0.0-0.8); Platelet Count 428 10^3/uL (150-450); Red Blood Count 2.31 10^6/uL (4.06-5.63); Red Cell Distribution Width 17.8 % (12-17); White Blood Count 10.3 10^3/uL (3.6-10.2)
[2024-01-22 07:15] LABS: Calcium 8.4 mg/dL (8.6-10.3); Creatinine, Serum 6.25 mg/dL (0.67-1.17); Magnesium 1.8 mg/dL (1.9-2.7); Potassium 4.3 mmol/L (3.5-5.0)
[2024-01-22] MEDS: Magnesium Sulfate IV 1GM/100ML 1 GM/100 ML BAG IV ONE (08:47)
[2024-01-22] MEDS: Vancomycin 500 MG in NS 0.9% 250 ML IVPB ONE ×2 (18:17→19:13)
[2024-01-22] MEDS: HYDROmorphone 1 MG/1 ML SYRINGE IV SLOW PU ONE (18:41)
[2024-01-22] MEDS: HYDROcodone/ACETAMIN 5/325 mg TAB PO PRN (21:18)
[2024-01-23] MEDS: Magnesium Sulfate 2 gm BAG 2 GM/50 ML BAG IVPB ONE (11:07)
[2024-01-24 05:56] LABS: Hematocrit 23.3 % (38-53); Hemoglobin 7.7 g/dL (13.2-16.3); Mean Corpuscular Hemoglobin 30.6 pg (27-33); Mean Corpuscular Hgb Conc 32.9 g/dL (31-36); Mean Corpuscular Volume 93.3 fL (80-97); Mean Platelet Volume 7.3 fL (7.5-11.2); Platelet Count 487 10^3/uL (150-450); Red Cell Distribution Width 17.5 % (12-17); White Blood Count 12.4 10^3/uL (3.6-10.2)
[2024-01-24 06:44] LABS: ABS Basophils 0.1 10^3/uL (0.0-0.1); ABS Eosinophils 0.2 10^3/uL (0.0-0.5); ABS Lymphocytes 1.2 10^3/uL (1.0-4.8); ABS Monocytes 1.3 10^3/uL (0.0-1.1); ABS Neutrophils 9.5 10^3/uL (1.5-7.6); ABS Nucleated RBC 0.04 10^3/ul; Lymphocyte % 9.6 %; Nucleated Red Blood Cells % 0.3 %/100WBC (0.0-0.8)
[2024-01-24 06:58] LABS: Calcium 9.6 mg/dL (8.6-10.3); Creatinine, Serum 7.6 mg/dL (0.67-1.17); Magnesium 1.9 mg/dL (1.9-2.7); Phosphorus 2.2 mg/dL (2.5-5.0); Potassium 4.5 mmol/L (3.5-5.0); eGFR CKD-EPI 8.7 (>60)
[2024-01-24] MEDS: Alteplase (CATHFLO) 2 MG VIAL ONE (09:04)
[2024-01-25 06:27] LABS: Hematocrit 15.6 % (38-53); Hemoglobin 5.1 g/dL (13.2-16.3); Mean Corpuscular Hemoglobin 30.4 pg (27-33); Mean Corpuscular Hgb Conc 32.9 g/dL (31-36); Mean Corpuscular Volume 92.7 fL (80-97); Mean Platelet Volume 7.6 fL (7.5-11.2); Platelet Count 364 10^3/uL (150-450); Red Blood Count 1.68 10^6/uL (4.06-5.63); Red Cell Distribution Width 17.7 % (12-17); White Blood Count 15.9 10^3/uL (3.6-10.2)
[2024-01-25 06:28] LABS: ABS Basophils 0.2 10^3/uL (0.0-0.1); ABS Eosinophils 0.3 10^3/uL (0.0-0.5); ABS Lymphocytes 1.6 10^3/uL (1.0-4.8); ABS Monocytes 1.8 10^3/uL (0.0-1.1); ABS Neutrophils 12.1 10^3/uL (1.5-7.6); ABS Nucleated RBC 0.04 10^3/ul; Lymphocyte % 9.8 %; Nucleated Red Blood Cells % 0.2 %/100WBC (0.0-0.8)
[2024-01-25 06:55] LABS: Calcium 9.4 mg/dL (8.6-10.3); Creatinine, Serum 5.74 mg/dL (0.67-1.17); Magnesium 1.6 mg/dL (1.9-2.7); Phosphorus 1.9 mg/dL (2.5-5.0); eGFR CKD-EPI 12.1 (>60)
[2024-01-25] MEDS: Magnesium Sulfate 2 gm BAG 2 GM/50 ML BAG IVPB ONE (07:46)
[2024-01-25 07:53] LABS: C Reactive Protein 130.52 mg/L (<8.01)
[2024-01-25] MEDS ORDERED: Midazolam 5 mg/5 ml VIAL 1 mg/ml 5 ml VIAL (5 mg) ONE (12:14)
[2024-01-25] MEDS ORDERED: fentaNYL 250 mcg/5 ml 50 MCG/ML 5 ml VIAL (250 MCG) ONE (12:14)
[2024-01-25] MEDS ORDERED: Lidocaine 1% VIAL 10 MG/ML 30 ML VIAL ONE (13:12)
[2024-01-25] MEDS ORDERED: Heparin 2 UNITS/ML IVPREMIX 2,000 UNIT/1,000 ML BAG IV ONE (13:12)
[2024-01-25] MEDS ORDERED: methylPREDNISolone SOD SUCC 125 mg 2 ML VIAL ONE (13:35)
[2024-01-25] MEDS ORDERED: Iodixanol 320 (CONTRAST) 100 ML SDV ONE (13:47)
[2024-01-25] MEDS ORDERED: Iohexol 350 (CONTRAST) 100 ML PAK IV ONE (14:16)
[2024-01-25] MEDS ORDERED: Heparin 1,000 UNIT/ML 10 ml (10,000 UNITS) CATHLAB/DIALYSIS ONE (14:21)
[2024-01-25 17:52] VITALS: BP 92/57
== END 2024-01-25 17:35 | disposition short-term general hospital (02) | DRG 871 ==
LOC: ED 12:09 → SUATTDRO 20:24 → EDHOLD 20:24 → ICU 21:14 → MED 01-11 09:13
PROVIDERS: ADMIT Surgery Surgical Critical Care; ATTEND Internal Medicine
PROC: O.CATEE (2024-01-07 16:00)

== ENCOUNTER 2024-03-09 13:08 | Inpatient (IN) ==
[2024-03-09] MEDS: HYDROmorphone 1 MG/1 ML SYRINGE IM ONE (14:48)
[2024-03-09] MEDS ORDERED: Ondansetron ODT 4 mg TAB 4 MG TAB ONE (14:54)
[2024-03-09] MEDS: HYDROmorphone 1 MG/1 ML SYRINGE IV ONE ×4 (15:04→20:12)
[2024-03-09] MEDS: Ondansetron 4 mg VIAL 2 MG/ML 2 ml VIAL IV ONE ×2 (15:04→20:00)
[2024-03-09 15:57] LABS: Venous Bicarbonate HCO3 26.8 mmol/L (24-28)
[2024-03-09] MEDS: Vancomycin 1,250 MG in NS 0.9% 250 ml 250 ML IVPB ONE (16:01)
[2024-03-09 16:02] LABS: ABS Basophils 0.1 10^3/uL (0.0-0.1); ABS Eosinophils 0.4 10^3/uL (0.0-0.5); ABS Lymphocytes 0.6 10^3/uL (1.0-4.8); ABS Monocytes 0.5 10^3/uL (0.0-1.1); ABS Neutrophils 5.4 10^3/uL (1.5-7.6); Eosinophil % 5.5 %; Hematocrit 31.6 % (38-53); Hemoglobin 10.5 g/dL (13.2-16.3); Mean Corpuscular Hemoglobin 31.3 pg (27-33); Mean Corpuscular Hgb Conc 33.4 g/dL (31-36); Mean Corpuscular Volume 93.8 fL (80-97); Mean Platelet Volume 7.6 fL (7.5-11.2); Platelet Count 240 10^3/uL (150-450); Red Blood Count 3.37 10^6/uL (4.06-5.63); Red Cell Distribution Width 18.6 % (12-17)
[2024-03-09 16:27] LABS: Activated Partial Thrombo Time 32.6 seconds (26.0-38.0); INR 1.1 (0.83-1.13)
[2024-03-09 16:56] LABS: Albumin/Globulin Ratio 1.3 (1-3); C Reactive Protein 18.24 mg/L (<8.01); Calcium 9.3 mg/dL (8.6-10.3); Creatinine, Serum 7.13 mg/dL (0.67-1.17); Potassium 4.7 mmol/L (3.5-5.0); Total Bilirubin 0.7 mg/dL (0.2-1.0); eGFR CKD-EPI 9.4 (>60)
[2024-03-09 17:10] LABS: High Sensitivity Troponin 1 Hr 3 pg/mL (<20)
[2024-03-09] MEDS: Lactated Ringers 1000 ml BAG 1,000 ML IV SCH (22:19)
[2024-03-09 23:23] LABS: Direct Bilirubin 0.1 mg/dL (0.03-0.18); Indirect Bilirubin 0.6 mg/dL (0.3-1.0)
[2024-03-09] MEDS: HYDROmorphone 1 MG/1 ML SYRINGE IV SLOW PU PRN (23:31)
[2024-03-10] MEDS: HYDROmorphone 1 MG/1 ML SYRINGE IV SLOW PU PRN ×2 (00:31→06:05)
[2024-03-10 06:41] LABS: ABS Eosinophils 0.4 10^3/uL (0.0-0.5); ABS Lymphocytes 0.6 10^3/uL (1.0-4.8); ABS Monocytes 0.7 10^3/uL (0.0-1.1); ABS Neutrophils 5.3 10^3/uL (1.5-7.6); ABS Nucleated RBC 0.01 10^3/ul; Calcium 8.9 mg/dL (8.6-10.3); Creatinine, Serum 8.01 mg/dL (0.67-1.17); Eosinophil % 5.7 %; Hemoglobin 10.7 g/dL (13.2-16.3); Lymphocyte % 8.6 %; Magnesium 2.1 mg/dL (1.9-2.7); Mean Corpuscular Hemoglobin 30.7 pg (27-33); Mean Corpuscular Hgb Conc 32.5 g/dL (31-36); Mean Corpuscular Volume 94.5 fL (80-97); Mean Platelet Volume 8.3 fL (7.5-11.2); Nucleated Red Blood Cells % 0.1 %/100WBC (0.0-0.8); Platelet Count 240 10^3/uL (150-450); Potassium 4.9 mmol/L (3.5-5.0); Red Cell Distribution Width 17.9 % (12-17); White Blood Count 7.1 10^3/uL (3.6-10.2); eGFR CKD-EPI 8.1 (>60)
[2024-03-10] MEDS ORDERED: NS 0.9% 1000 ml BAG 200 ML IV PRN (09:12)
[2024-03-10] MEDS ORDERED: NS 0.9% 1000 ml BAG 100 ML IV PRN (09:12)
[2024-03-10] MEDS ORDERED: Albumin Human 25% 25 GM/100 ML BTL IV PRN (09:12)
[2024-03-10] MEDS: Heparin 1,000 UNIT/ML 10 ml (10,000 UNITS) CATHLAB/DIALYSIS DIALYSIS PRN (11:26)
[2024-03-10 14:10] LABS: Hepatitis B Surface Antigen Nonreactive (Nonreactive)
[2024-03-10 14:28] LABS: Hepatitis B Surface Ab Immune (Immune)
[2024-03-10] MEDS: Ondansetron 4 mg VIAL 2 MG/ML 2 ml VIAL IV PRN (22:35)
[2024-03-11] MEDS ORDERED: Heparin 1,000 UNIT/ML 10 ml (10,000 UNITS) CATHLAB/DIALYSIS DIALYSIS PRN
[2024-03-11] MEDS ORDERED: NS 0.9% 1000 ml BAG 100 ML IV PRN
[2024-03-11] MEDS ORDERED: NS 0.9% 1000 ml BAG 200 ML IV PRN
[2024-03-11] MEDS ORDERED: Albumin Human 25% 25 GM/100 ML BTL IV PRN
[2024-03-11] MEDS ORDERED: Senna TAB 8.6 mg TAB PO PRN (08:38)
[2024-03-11] MEDS ORDERED: Polyethylene Glycol 3350 17 GM PACKET PO PRN (08:38)
[2024-03-11 09:09] LABS: Hematocrit 30.4 % (38-53); Hemoglobin 10.1 g/dL (13.2-16.3); Mean Corpuscular Hemoglobin 31.8 pg (27-33); Mean Corpuscular Hgb Conc 33.3 g/dL (31-36); Mean Corpuscular Volume 95.4 fL (80-97); Mean Platelet Volume 7.7 fL (7.5-11.2); Platelet Count 238 10^3/uL (150-450); Red Blood Count 3.19 10^6/uL (4.06-5.63); Red Cell Distribution Width 18.5 % (12-17); White Blood Count 5.8 10^3/uL (3.6-10.2)
[2024-03-11 09:31] LABS: Calcium 9.4 mg/dL (8.6-10.3); Creatinine, Serum 7.52 mg/dL (0.67-1.17); Magnesium 1.8 mg/dL (1.9-2.7); Potassium 4.6 mmol/L (3.5-5.0); eGFR CKD-EPI 8.8 (>60)
[2024-03-11] MEDS: HYDROmorphone 1 MG/1 ML SYRINGE IV SLOW PU PRN (13:18)
[2024-03-11] MEDS: Ondansetron 4 mg VIAL 2 MG/ML 2 ml VIAL IV PRN (16:12)
[2024-03-11 21:22] LABS: ABS Basophils 0.1 10^3/uL (0.0-0.1); ABS Eosinophils 0.3 10^3/uL (0.0-0.5); ABS Lymphocytes 0.6 10^3/uL (1.0-4.8); ABS Neutrophils 3.6 10^3/uL (1.5-7.6); Eosinophil % 6.3 %; Hematocrit 31.3 % (38-53); Lymphocyte % 10.2 %; Mean Corpuscular Hemoglobin 30.3 pg (27-33); Mean Corpuscular Volume 94.4 fL (80-97); Mean Platelet Volume 7.9 fL (7.5-11.2); Nucleated Red Blood Cells % 0.1 %/100WBC (0.0-0.8); Platelet Count 267 10^3/uL (150-450); Red Blood Count 3.31 10^6/uL (4.06-5.63); Red Cell Distribution Width 18.4 % (12-17); White Blood Count 5.5 10^3/uL (3.6-10.2)
[2024-03-11 21:34] LABS: Activated Partial Thrombo Time 29.1 seconds (26.0-38.0); INR 1.16 (0.83-1.13)
[2024-03-11 22:26] LABS: Creatinine, Serum 8.5 mg/dL (0.67-1.17); eGFR CKD-EPI 7.6 (>60)
[2024-03-12] MEDS: Heparin 5000 UNITS/ML 1 mL VIAL SUBCUT SCH (07:49)
[2024-03-12 08:45] LABS: Hematocrit 30.6 % (38-53); Hemoglobin 10.2 g/dL (13.2-16.3); Mean Corpuscular Hemoglobin 31.6 pg (27-33); Mean Corpuscular Hgb Conc 33.1 g/dL (31-36); Mean Corpuscular Volume 95.4 fL (80-97); Mean Platelet Volume 7.9 fL (7.5-11.2); Platelet Count 281 10^3/uL (150-450); Red Blood Count 3.21 10^6/uL (4.06-5.63); Red Cell Distribution Width 18.4 % (12-17); White Blood Count 4.8 10^3/uL (3.6-10.2)
[2024-03-12 09:10] LABS: ABS Basophils 0.1 10^3/uL (0.0-0.1); ABS Eosinophils 0.3 10^3/uL (0.0-0.5); ABS Lymphocytes 0.6 10^3/uL (1.0-4.8); ABS Neutrophils 2.8 10^3/uL (1.5-7.6); Eosinophil % 6.8 %; Lymphocyte % 11.7 %; Nucleated Red Blood Cells % 0.1 %/100WBC (0.0-0.8)
[2024-03-12 10:02] LABS: Calcium 8.6 mg/dL (8.6-10.3); Creatinine, Serum 9.09 mg/dL (0.67-1.17)
[2024-03-12] MEDS ORDERED: Metoclopramide 5 MG/ML VIAL (10 mg) IV PRN (11:34)
[2024-03-12] MEDS: Prochlorperazine 5 mg/ml 2 ml VIAL (10 mg) IV PRN (14:41)
[2024-03-13 06:14] LABS: ABS Eosinophils 0.2 10^3/uL (0.0-0.5); ABS Lymphocytes 0.6 10^3/uL (1.0-4.8); ABS Monocytes 1.1 10^3/uL (0.0-1.1); ABS Neutrophils 3.9 10^3/uL (1.5-7.6); Hematocrit 30.2 % (38-53); Lymphocyte % 10.1 %; Mean Corpuscular Hemoglobin 31.5 pg (27-33); Mean Corpuscular Hgb Conc 33.1 g/dL (31-36); Platelet Count 283 10^3/uL (150-450); Red Blood Count 3.18 10^6/uL (4.06-5.63); Red Cell Distribution Width 18.1 % (12-17); White Blood Count 5.8 10^3/uL (3.6-10.2)
[2024-03-13 06:35] LABS: Calcium 8.3 mg/dL (8.6-10.3); Creatinine, Serum 10.91 mg/dL (0.67-1.17); Magnesium 1.9 mg/dL (1.9-2.7); Potassium 5.2 mmol/L (3.5-5.0); eGFR CKD-EPI 5.6 (>60)
[2024-03-13] MEDS ORDERED: NS 0.9% 1000 ml BAG 200 ML IV PRN ×2 (11:00→18:52)
[2024-03-13] MEDS ORDERED: NS 0.9% 1000 ml BAG 100 ML IV PRN ×2 (11:00→18:52)
[2024-03-13] MEDS: Heparin 1,000 UNIT/ML 10 ml (10,000 UNITS) CATHLAB/DIALYSIS DIALYSIS PRN (13:24)
[2024-03-13] MEDS: Albumin Human 25% 25 GM/100 ML BTL IV PRN (13:30)
[2024-03-13] MEDS ORDERED: Albumin Human 25% 25 GM/100 ML BTL IV PRN (18:52)
[2024-03-13] MEDS ORDERED: Heparin 1,000 UNIT/ML 10 ml (10,000 UNITS) CATHLAB/DIALYSIS DIALYSIS PRN (18:52)
[2024-03-14] MEDS: Prochlorperazine 5 mg/ml 2 ml VIAL (10 mg) IV PRN (00:39)
[2024-03-14 09:00] LABS: Hematocrit 30.5 % (38-53); Hemoglobin 10.2 g/dL (13.2-16.3); Mean Corpuscular Hemoglobin 31.5 pg (27-33); Mean Corpuscular Hgb Conc 33.4 g/dL (31-36); Mean Corpuscular Volume 94.4 fL (80-97); Red Blood Count 3.23 10^6/uL (4.06-5.63); Red Cell Distribution Width 18.1 % (12-17)
[2024-03-14 10:17] LABS: ABS Eosinophils 0.3 10^3/uL (0.0-0.5); ABS Lymphocytes 0.9 10^3/uL (1.0-4.8); ABS Monocytes 1.3 10^3/uL (0.0-1.1); ABS Neutrophils 7.1 10^3/uL (1.5-7.6); ABS Nucleated RBC 0.03 10^3/ul; Eosinophil % 3.4 %; Lymphocyte % 8.8 %; Mean Platelet Volume 8.2 fL (7.5-11.2); Nucleated Red Blood Cells % 0.3 %/100WBC (0.0-0.8); Platelet Count 262 10^3/uL (150-450); White Blood Count 9.7 10^3/uL (3.6-10.2)
[2024-03-14] MEDS ORDERED: Senna TAB 8.6 mg TAB PO PRN (10:52)
[2024-03-14] MEDS: Polyethylene Glycol 3350 17 GM PACKET PO SCH (11:56)
[2024-03-15 05:38] LABS: ABS Eosinophils 0.3 10^3/uL (0.0-0.5); ABS Lymphocytes 0.6 10^3/uL (1.0-4.8); ABS Monocytes 1.1 10^3/uL (0.0-1.1); ABS Neutrophils 3.7 10^3/uL (1.5-7.6); ABS Nucleated RBC 0.01 10^3/ul; Eosinophil % 5.7 %; Hematocrit 29.9 % (38-53); Hemoglobin 9.8 g/dL (13.2-16.3); Lymphocyte % 10.5 %; Mean Corpuscular Hemoglobin 30.8 pg (27-33); Mean Corpuscular Hgb Conc 32.6 g/dL (31-36); Mean Corpuscular Volume 94.5 fL (80-97); Mean Platelet Volume 8.2 fL (7.5-11.2); Nucleated Red Blood Cells % 0.1 %/100WBC (0.0-0.8); Platelet Count 258 10^3/uL (150-450); Red Blood Count 3.17 10^6/uL (4.06-5.63); Red Cell Distribution Width 18.5 % (12-17); White Blood Count 5.8 10^3/uL (3.6-10.2)
[2024-03-15 06:00] LABS: Creatinine, Serum 11.19 mg/dL (0.67-1.17); Potassium 4.8 mmol/L (3.5-5.0); eGFR CKD-EPI 5.4 (>60)
[2024-03-15] MEDS ORDERED: Heparin 1,000 UNIT/ML 10 ml (10,000 UNITS) CATHLAB/DIALYSIS DIALYSIS PRN ×2 (09:00→21:39)
[2024-03-15] MEDS: Albumin Human 5% 12.5 GM/250 ML BTL IV ONE (11:56)
[2024-03-15] MEDS: NS 0.9% 1000 ml BAG 1,000 ML IV ONE (12:43)
[2024-03-15] MEDS: Heparin 1,000 UNIT/ML 10 ml (10,000 UNITS) CATHLAB/DIALYSIS DIALYSIS PRN (13:23)
[2024-03-15] MEDS ORDERED: NS 0.9% 1000 ml BAG 200 ML IV PRN (21:39)
[2024-03-15] MEDS ORDERED: Albumin Human 25% 25 GM/100 ML BTL IV PRN (21:39)
[2024-03-15] MEDS ORDERED: NS 0.9% 1000 ml BAG 100 ML IV PRN (21:39)
[2024-03-16 08:20] LABS: ABS Eosinophils 0.3 10^3/uL (0.0-0.5); ABS Lymphocytes 0.7 10^3/uL (1.0-4.8); ABS Monocytes 0.9 10^3/uL (0.0-1.1); ABS Nucleated RBC 0.01 10^3/ul; Eosinophil % 6.7 %; Hematocrit 29.7 % (38-53); Hemoglobin 9.7 g/dL (13.2-16.3); Lymphocyte % 13.3 %; Mean Corpuscular Hemoglobin 30.9 pg (27-33); Mean Corpuscular Hgb Conc 32.7 g/dL (31-36); Mean Corpuscular Volume 94.6 fL (80-97); Nucleated Red Blood Cells % 0.2 %/100WBC (0.0-0.8); Platelet Count 234 10^3/uL (150-450); Red Blood Count 3.14 10^6/uL (4.06-5.63)
[2024-03-16 09:19] LABS: Calcium 8.1 mg/dL (8.6-10.3); Creatinine, Serum 9.64 mg/dL (0.67-1.17); Magnesium 1.9 mg/dL (1.9-2.7); Potassium 4.6 mmol/L (3.5-5.0); eGFR CKD-EPI 6.5 (>60)
[2024-03-16] MEDS: Albumin Human 5% 12.5 GM/250 ML BTL IV ONE ×2 (12:12→12:45)
[2024-03-16] MEDS: NS 0.9% 1000 ml BAG 1,000 ML IV ONE (14:39)
[2024-03-17 06:55] LABS: Calcium 8.6 mg/dL (8.6-10.3); Creatinine, Serum 7.09 mg/dL (0.67-1.17); Magnesium 1.7 mg/dL (1.9-2.7); Potassium 3.9 mmol/L (3.5-5.0); eGFR CKD-EPI 9.4 (>60)
[2024-03-17 07:11] LABS: ABS Eosinophils 0.4 10^3/uL (0.0-0.5); ABS Lymphocytes 0.7 10^3/uL (1.0-4.8); ABS Monocytes 0.8 10^3/uL (0.0-1.1); ABS Neutrophils 3.3 10^3/uL (1.5-7.6); ABS Nucleated RBC 0.01 10^3/ul; Hematocrit 30.1 % (38-53); Lymphocyte % 13.9 %; Mean Corpuscular Hemoglobin 31.7 pg (27-33); Mean Corpuscular Hgb Conc 33.4 g/dL (31-36); Mean Corpuscular Volume 94.8 fL (80-97); Mean Platelet Volume 7.9 fL (7.5-11.2); Nucleated Red Blood Cells % 0.1 %/100WBC (0.0-0.8); Platelet Count 204 10^3/uL (150-450); Red Blood Count 3.17 10^6/uL (4.06-5.63); Red Cell Distribution Width 18.9 % (12-17); White Blood Count 5.3 10^3/uL (3.6-10.2)
[2024-03-17] MEDS: HYDROmorphone 1 MG/1 ML SYRINGE IV SLOW PU PRN (15:11)
[2024-03-18] MEDS: HYDROmorphone 1 MG/1 ML SYRINGE IV SLOW PU ONE (03:59)
[2024-03-18 07:17] LABS: ABS Eosinophils 0.4 10^3/uL (0.0-0.5); ABS Lymphocytes 0.8 10^3/uL (1.0-4.8); ABS Monocytes 0.9 10^3/uL (0.0-1.1); ABS Neutrophils 4.6 10^3/uL (1.5-7.6); Eosinophil % 6.3 %; Hematocrit 28.8 % (38-53); Hemoglobin 9.6 g/dL (13.2-16.3); Lymphocyte % 11.3 %; Mean Corpuscular Hemoglobin 31.6 pg (27-33); Mean Corpuscular Hgb Conc 33.5 g/dL (31-36); Mean Corpuscular Volume 94.5 fL (80-97); Mean Platelet Volume 7.8 fL (7.5-11.2); Platelet Count 176 10^3/uL (150-450); Red Blood Count 3.05 10^6/uL (4.06-5.63); Red Cell Distribution Width 18.3 % (12-17); White Blood Count 6.6 10^3/uL (3.6-10.2)
[2024-03-18 09:45] LABS: Calcium 7.8 mg/dL (8.6-10.3); Creatinine, Serum 8.61 mg/dL (0.67-1.17); Magnesium 1.6 mg/dL (1.9-2.7); Potassium 3.8 mmol/L (3.5-5.0); eGFR CKD-EPI 7.5 (>60)
[2024-03-19] MEDS: Lactated Ringers 1000 ml BAG 500 ML IV ONE ×2 (03:53→05:12)
[2024-03-19 06:33] LABS: ABS Eosinophils 0.5 10^3/uL (0.0-0.5); ABS Monocytes 0.7 10^3/uL (0.0-1.1); ABS Neutrophils 4.3 10^3/uL (1.5-7.6); Eosinophil % 8.1 %; Hematocrit 27.9 % (38-53); Hemoglobin 9.4 g/dL (13.2-16.3); Lymphocyte % 14.6 %; Mean Corpuscular Hemoglobin 31.6 pg (27-33); Mean Corpuscular Hgb Conc 33.7 g/dL (31-36); Mean Corpuscular Volume 93.8 fL (80-97); Mean Platelet Volume 7.8 fL (7.5-11.2); Platelet Count 162 10^3/uL (150-450); Red Blood Count 2.98 10^6/uL (4.06-5.63); Red Cell Distribution Width 18.1 % (12-17); White Blood Count 6.6 10^3/uL (3.6-10.2)
[2024-03-19 06:58] LABS: Calcium 7.5 mg/dL (8.6-10.3); Creatinine, Serum 9.54 mg/dL (0.67-1.17); Magnesium 1.5 mg/dL (1.9-2.7); Potassium 3.9 mmol/L (3.5-5.0); eGFR CKD-EPI 6.6 (>60)
[2024-03-19] MEDS ORDERED: NS 0.9% 1000 ml BAG 100 ML IV PRN (12:21)
[2024-03-19] MEDS ORDERED: NS 0.9% 1000 ml BAG 200 ML IV PRN (12:21)
[2024-03-19] MEDS ORDERED: Acetaminophen IV 1 GM/100ML 1,000 MG/100 ML BAG IV PRN (17:59)
[2024-03-19] MEDS: Acetaminophen IV 1 GM/100ML 1,000 MG/100 ML BAG IV SCH (19:31)
[2024-03-19] MEDS: Nystatin TOP POWDER 15 GM BTL TOPICAL SCH (20:38)
[2024-03-20 07:45] LABS: Hematocrit 29.8 % (38-53); Mean Corpuscular Hemoglobin 31.7 pg (27-33); Mean Corpuscular Hgb Conc 33.5 g/dL (31-36); Mean Corpuscular Volume 94.8 fL (80-97); Platelet Count 165 10^3/uL (150-450); Red Blood Count 3.14 10^6/uL (4.06-5.63); Red Cell Distribution Width 18.5 % (12-17); White Blood Count 7.9 10^3/uL (3.6-10.2)
[2024-03-20 08:08] LABS: Calcium 7.5 mg/dL (8.6-10.3); Creatinine, Serum 10.4 mg/dL (0.67-1.17); Magnesium 1.5 mg/dL (1.9-2.7); eGFR CKD-EPI 5.9 (>60)
[2024-03-20] MEDS: Heparin 1,000 UNIT/ML 10 ml (10,000 UNITS) CATHLAB/DIALYSIS DIALYSIS PRN (09:26)
[2024-03-20] MEDS: Albumin Human 25% 25 GM/100 ML BTL IV PRN (09:30)
[2024-03-20 13:23] VITALS: BP 104/61
== END 2024-03-20 14:02 | disposition home or self-care (01) | DRG 682 ==
LOC: EDHOLD 13:08 → ED 13:08 → SUATTDRO 19:46 → MEDTELE 20:30 → SUATTDRO 03-12 13:48 → MED 03-16 18:33
PROVIDERS: ADMIT Internal Medicine; ATTEND Student in an Organized Health Care Education/Training Program

== ENCOUNTER 2024-04-19 14:51 | Inpatient (IN) ==
[2024-04-19 15:55] LABS: ABS Basophils 0.1 10^3/uL (0.0-0.1); ABS Lymphocytes 0.4 10^3/uL (1.0-4.8); ABS Monocytes 0.6 10^3/uL (0.0-1.1); ABS Neutrophils 6.7 10^3/uL (1.5-7.6); Eosinophil % 0.5 %; Hematocrit 29.8 % (38-53); Hemoglobin 9.8 g/dL (13.2-16.3); Lymphocyte % 4.8 %; Mean Corpuscular Hemoglobin 30.9 pg (27-33); Mean Corpuscular Volume 93.7 fL (80-97); Platelet Count 125 10^3/uL (150-450); Red Blood Count 3.18 10^6/uL (4.06-5.63); Red Cell Distribution Width 18.8 % (12-17); White Blood Count 7.8 10^3/uL (3.6-10.2)
[2024-04-19 16:02] LABS: Activated Partial Thrombo Time 29.1 seconds (26.0-38.0); INR 1.54 (0.85-1.14)
[2024-04-19 16:19] LABS: High Sens Troponin Baseline 29 pg/mL (<20)
[2024-04-19 16:45] LABS: ALT 26 U/L (7-52); Albumin 4.1 g/dL (3.2-5.2); Albumin/Globulin Ratio 1.1 (1-3); Alkaline Phosphatase 303 U/L (35-149); Anion Gap 19 mmol/L (2-16); Blood Urea Nitrogen 45 mg/dL (6-24); C Reactive Protein 399.83 mg/L (<8.01); CO2 Carbon Dioxide 24 mmol/L (22-32); Calcium 6.9 mg/dL (8.6-10.3); Chloride 88 mmol/L (101-111); Creatinine, Serum 9.59 mg/dL (0.67-1.17); Globulin 3.8 g/dL (2-4); Glucose 104 mg/dL (70-100); Sodium 131 mmol/L (135-145); Total Bilirubin 0.9 mg/dL (0.2-1.0); Total Protein 7.9 g/dL (6.4-8.9); eGFR CKD-EPI 6.6 (>60)
[2024-04-19 17:34] LABS: Potassium, Whole Blood 5.2 mmol/L (3.4-4.5)
[2024-04-19 18:11] LABS: High Sensitivity Troponin 1 Hr 31 pg/mL (<20)
[2024-04-19 18:23] LABS: Potassium Redraw 3.6 mmol/L (3.5-5.0)
[2024-04-19] MEDS: Lactated Ringers 1000 ml BAG 1,000 ML IV ONE (18:42)
[2024-04-19] MEDS: Meropenem 500MG PREMIX(*) 500 MG/50 ML BAG IV ONE (19:03)
[2024-04-19] MEDS: fentaNYL 100 mcg/2 ml 50 MCG/ML VIAL IV SLOW PU ONE ×2 (20:00→21:53)
[2024-04-19 21:44] LABS: Venous Bicarbonate HCO3 22.8 mmol/L (24-28)
[2024-04-19 22:13] LABS: Anion Gap 16 mmol/L (2-16); Blood Urea Nitrogen 45 mg/dL (6-24); CO2 Carbon Dioxide 24 mmol/L (22-32); Chloride 91 mmol/L (101-111); Creatinine, Serum 9.21 mg/dL (0.67-1.17); Glucose 98 mg/dL (70-100); Sodium 131 mmol/L (135-145); eGFR CKD-EPI 6.9 (>60)
[2024-04-20 00:16] LABS: Ferritin 755.5 ng/mL (24-336)
[2024-04-20] MEDS ORDERED: Hemorrhoidal OINT 1 TUBE PR PRN (00:18)
[2024-04-20] MEDS ORDERED: Naloxone Nasal Spray 4 MG/0.1 ML NASAL.SPR INTRANASAL PRN (00:18)
[2024-04-20 00:23] LABS: Vitamin D Total 25(OH) 11.3 ng/mL (20-50)
[2024-04-20] MEDS ORDERED: Calcium Gluconate 2 GM in NS 0.9% 100 ml BAG 100 ML IVPB ONE (00:25)
[2024-04-20] MEDS ORDERED: Vancomycin per Pharmacy 1 EA NOTE FOLLOW UP SCH (01:00)
[2024-04-20] MEDS: CALCIUM GLUCONATE 1GM/50ML NS BAG IV SCH (01:22)
[2024-04-20] MEDS: Vancomycin 1,000 MG - ED ONCE IVPB ONE (01:23)
[2024-04-20] MEDS: HYDROmorphone 1 MG/1 ML SYRINGE IV SLOW PU PRN (04:00)
[2024-04-20 04:55] LABS: Hematocrit 29.5 % (38-53); Hemoglobin 9.9 g/dL (13.2-16.3); Mean Corpuscular Hemoglobin 31.5 pg (27-33); Mean Corpuscular Hgb Conc 33.7 g/dL (31-36); Mean Corpuscular Volume 93.5 fL (80-97); Mean Platelet Volume 9.4 fL (7.5-11.2); Platelet Count 107 10^3/uL (150-450); Red Blood Count 3.16 10^6/uL (4.06-5.63); Red Cell Distribution Width 17.9 % (12-17); White Blood Count 7.9 10^3/uL (3.6-10.2)
[2024-04-20 05:25] LABS: Albumin 3.5 g/dL (3.2-5.2); Albumin/Globulin Ratio 1.1 (1-3); Calcium 6.7 mg/dL (8.6-10.3); Creatinine, Serum 9.9 mg/dL (0.67-1.17); Globulin 3.2 g/dL (2-4); Total Bilirubin 0.9 mg/dL (0.2-1.0); Total Protein 6.7 g/dL (6.4-8.9); eGFR CKD-EPI 6.3 (>60)
[2024-04-20 05:32] LABS: High Sensitivity Troponin 1 Hr 27 pg/mL (<20)
[2024-04-20] MEDS ORDERED: Heparin 5000 UNITS/ML 1 mL VIAL SUBCUT SCH (06:00)
[2024-04-20 06:33] LABS: High Sensitivity Troponin 3 Hr 26 pg/mL (<20)
[2024-04-20] MEDS: Polyethylene Glycol 3350 17 GM PACKET PO SCH (07:47)
[2024-04-20] MEDS: Nystatin TOP POWDER 15 GM BTL TOPICAL SCH (07:47)
[2024-04-20] MEDS: Calcium Carbonate LIQ 1,250 mg/5 ml UDC PO SCH (07:48)
[2024-04-20 08:34] LABS: Phosphorus 6.3 mg/dL (2.5-5.0)
[2024-04-20] MEDS: Sulfur Hexaflouride MICROSPHR 25 MG VIAL IV ONE (13:41)
[2024-04-20] MEDS: Vancomycin Random Level NOTE FOLLOW UP ONE (14:40)
[2024-04-20] MEDS ORDERED: Meropenem 500MG PREMIX(*) 500 MG/50 ML BAG IV SCH (16:00)
[2024-04-20] MEDS: HYDROmorphone 0.5 MG/0.5 ML SYRINGE IV SLOW PU PRN ×2 (20:07→23:36)
[2024-04-20 22:38] LABS: High Sensitivity Troponin 1 Hr 24 pg/mL (<20)
[2024-04-21] MEDS ORDERED: NS 0.9% 1000 ml BAG 100 ML IV PRN (06:49)
[2024-04-21] MEDS ORDERED: NS 0.9% 1000 ml BAG 200 ML IV PRN (06:49)
[2024-04-21 07:45] LABS: Hematocrit 30.2 % (38-53); Hemoglobin 10.2 g/dL (13.2-16.3); Mean Corpuscular Hemoglobin 31.3 pg (27-33); Mean Corpuscular Hgb Conc 33.7 g/dL (31-36); Mean Corpuscular Volume 92.9 fL (80-97); Mean Platelet Volume 9.7 fL (7.5-11.2); Platelet Count 109 10^3/uL (150-450); Red Blood Count 3.25 10^6/uL (4.06-5.63); Red Cell Distribution Width 18.3 % (12-17); White Blood Count 8.4 10^3/uL (3.6-10.2)
[2024-04-21 08:09] LABS: Albumin 3.9 g/dL (3.2-5.2); Albumin/Globulin Ratio 1.1 (1-3); Calcium 6.8 mg/dL (8.6-10.3); Creatinine, Serum 11.1 mg/dL (0.67-1.17); Globulin 3.7 g/dL (2-4); Magnesium 1.7 mg/dL (1.9-2.7); Phosphorus 5.5 mg/dL (2.5-5.0); Potassium 3.7 mmol/L (3.5-5.0); Total Bilirubin 0.7 mg/dL (0.2-1.0); Total Protein 7.6 g/dL (6.4-8.9); eGFR CKD-EPI 5.5 (>60)
[2024-04-21] MEDS: Heparin 1,000 UNIT/ML 10 ml (10,000 UNITS) CATHLAB/DIALYSIS DIALYSIS PRN (09:10)
[2024-04-21] MEDS: Albumin Human 25% 25 GM/100 ML BTL IV PRN (09:16)
[2024-04-21 13:41] LABS: Hepatitis B Surface Antigen Nonreactive (Nonreactive)
[2024-04-21 13:58] LABS: Hepatitis B Surface Ab Immune (Immune)
[2024-04-21] MEDS: Vancomycin 500 MG in NS 0.9% 250 ML IVPB ONE (15:47)
[2024-04-21] MEDS: Calcium Carb (TUMS) 500 mg CHEW TAB PO SCH (21:31)
[2024-04-22] MEDS: HYDROmorphone 0.5 MG/0.5 ML SYRINGE IV SLOW PU ONE (00:53)
[2024-04-22] MEDS: HYDROmorphone 1 MG/1 ML SYRINGE IV SLOW PU ONE (03:38)
[2024-04-22 07:02] LABS: Hemoglobin 10.2 g/dL (13.2-16.3); Mean Corpuscular Hemoglobin 31.6 pg (27-33); Mean Corpuscular Hgb Conc 34.1 g/dL (31-36); Mean Corpuscular Volume 92.5 fL (80-97); Mean Platelet Volume 8.6 fL (7.5-11.2); Platelet Count 110 10^3/uL (150-450); Red Blood Count 3.24 10^6/uL (4.06-5.63); Red Cell Distribution Width 18.4 % (12-17); White Blood Count 7.3 10^3/uL (3.6-10.2)
[2024-04-22 07:37] LABS: Calcium 7.9 mg/dL (8.6-10.3); Creatinine, Serum 7.45 mg/dL (0.67-1.17); Magnesium 1.5 mg/dL (1.9-2.7); Phosphorus 3.3 mg/dL (2.5-5.0); Potassium 3.7 mmol/L (3.5-5.0); Vancomycin Random 21.3 mcg/mL; eGFR CKD-EPI 8.9 (>60)
[2024-04-22] MEDS: HYDROmorphone 0.5 MG/0.5 ML SYRINGE IV SLOW PU PRN (12:14)
[2024-04-22] MEDS: Vancomycin Random Level NOTE FOLLOW UP ONE (14:16)
[2024-04-22] MEDS: Magnesium Sulfate 2 gm BAG 2 GM/50 ML BAG IVPB ONE (14:25)
[2024-04-22] MEDS: Vancomycin 500 MG in NS 0.9% 250 ML IVPB ONE (16:45)
[2024-04-22] MEDS: HYDROmorphone 1 MG/1 ML SYRINGE IV SLOW PU PRN (16:46)
[2024-04-23 00:20] LABS: Anaplasma phagocytophilum Negative (Negative); B. miyamotoi PCR, B Negative (Negative); Babesia divergens/MO-1 Negative (Negative); Babesia ducani Negative (Negative); Ehrlichia chaffeensis Negative (Negative); Ehrlichia ewingii/canis Negative (Negative); Ehrlichia muris eauclairensis Negative (Negative)
[2024-04-23 05:39] LABS: ABS Eosinophils 0.4 10^3/uL (0.0-0.5); ABS Lymphocytes 0.8 10^3/uL (1.0-4.8); ABS Monocytes 1.1 10^3/uL (0.0-1.1); ABS Neutrophils 5.5 10^3/uL (1.5-7.6); Eosinophil % 4.7 %; Hematocrit 27.5 % (38-53); Hemoglobin 9.4 g/dL (13.2-16.3); Lymphocyte % 10.3 %; Mean Corpuscular Hemoglobin 31.5 pg (27-33); Mean Corpuscular Hgb Conc 34.2 g/dL (31-36); Mean Corpuscular Volume 92.1 fL (80-97); Nucleated Red Blood Cells % 0.1 %/100WBC (0.0-0.8); Platelet Count 117 10^3/uL (150-450); Red Blood Count 2.98 10^6/uL (4.06-5.63); White Blood Count 7.8 10^3/uL (3.6-10.2)
[2024-04-23 05:57] LABS: Albumin 4.4 g/dL (3.2-5.2); Albumin/Globulin Ratio 1.4 (1-3); Creatinine, Serum 5.23 mg/dL (0.67-1.17); Globulin 3.1 g/dL (2-4); Phosphorus 1.6 mg/dL (2.5-5.0); Potassium 3.4 mmol/L (3.5-5.0); Total Bilirubin 0.9 mg/dL (0.2-1.0); Total Protein 7.5 g/dL (6.4-8.9); eGFR CKD-EPI 13.6 (>60)
[2024-04-23] MEDS: Potassium Chlor 20 meq TAB.ER PO ONE (09:11)
[2024-04-23] MEDS: KCL 20 MEQ/100 ML IVPREMIX 20 MEQ/100 ML BAG IV ONE (11:09)
[2024-04-24] MEDS ORDERED: NS 0.9% 1000 ml BAG 200 ML IV PRN (07:43)
[2024-04-24 09:25] LABS: Hematocrit 28.5 % (38-53); Hemoglobin 9.4 g/dL (13.2-16.3); Mean Corpuscular Hemoglobin 30.4 pg (27-33); Mean Corpuscular Hgb Conc 33.1 g/dL (31-36); Mean Corpuscular Volume 91.7 fL (80-97); Mean Platelet Volume 8.9 fL (7.5-11.2); Platelet Count 187 10^3/uL (150-450); Red Blood Count 3.11 10^6/uL (4.06-5.63); White Blood Count 8.4 10^3/uL (3.6-10.2)
[2024-04-24] MEDS: Albumin Human 25% 25 GM/100 ML BTL IV PRN (10:09)
[2024-04-24 10:30] LABS: ABS Basophils 0.1 10^3/uL (0.0-0.1); ABS Eosinophils 0.5 10^3/uL (0.0-0.5); ABS Lymphocytes 0.9 10^3/uL (1.0-4.8); ABS Monocytes 0.8 10^3/uL (0.0-1.1); ABS Neutrophils 6.1 10^3/uL (1.5-7.6); Eosinophil % 6.1 %; Lymphocyte % 10.9 %
[2024-04-24 10:31] LABS: RBC Morphology Normal (Normal)
[2024-04-24 11:52] LABS: Albumin 4.2 g/dL (3.2-5.2); Albumin/Globulin Ratio 1.2 (1-3); Calcium 9.2 mg/dL (8.6-10.3); Creatinine, Serum 6.8 mg/dL (0.67-1.17); Globulin 3.4 g/dL (2-4); Phosphorus 1.5 mg/dL (2.5-5.0); Total Bilirubin 0.7 mg/dL (0.2-1.0); Total Protein 7.6 g/dL (6.4-8.9); eGFR CKD-EPI 9.9 (>60)
[2024-04-24] MEDS ORDERED: Propofol 10 MG/ML 20 ML BTL ONE (12:58)
[2024-04-24] MEDS ORDERED: Lidocaine 2% PF 5 ML VIAL ONE (12:58)
[2024-04-24] MEDS ORDERED: Lidocaine 1% MPF 5 ML VIAL ONE (13:20)
[2024-04-24] MEDS ORDERED: KETAMINE HCL 10 MG/ML 20 ml VIAL (200 MG) ONE (13:22)
[2024-04-24] MEDS: Vancomycin Random Level NOTE FOLLOW UP ONE (15:47)
[2024-04-24] MEDS ORDERED: Warfarin per PHARMACY **NOTE FOLLOW UP SCH (17:00)
[2024-04-24] MEDS: Vancomycin 500 MG in NS 0.9% 250 ML IVPB ONE (17:12)
[2024-04-24 18:33] LABS: Hematocrit 29.3 % (38-53); Hemoglobin 9.7 g/dL (13.2-16.3); Mean Corpuscular Hemoglobin 30.2 pg (27-33); Mean Corpuscular Volume 91.7 fL (80-97); Mean Platelet Volume 8.5 fL (7.5-11.2); Platelet Count 208 10^3/uL (150-450); Red Blood Count 3.19 10^6/uL (4.06-5.63); White Blood Count 8.2 10^3/uL (3.6-10.2)
[2024-04-24 19:06] LABS: ABS Basophils 0.1 10^3/uL (0.0-0.1); ABS Eosinophils 0.5 10^3/uL (0.0-0.5); ABS Lymphocytes 0.8 10^3/uL (1.0-4.8); ABS Monocytes 1.1 10^3/uL (0.0-1.1); ABS Neutrophils 5.8 10^3/uL (1.5-7.6); ABS Nucleated RBC 0.01 10^3/ul; Anisocytosis 1+; Eosinophil % 5.7 %; Lymphocyte % 9.6 %; Nucleated Red Blood Cells % 0.1 %/100WBC (0.0-0.8)
[2024-04-24 19:21] LABS: Creatinine, Serum 4.8 mg/dL (0.67-1.17)
[2024-04-24] MEDS: Heparin DRIP 25,000 UNITS BAG 25,000 UNITS/250 ML BAG IV SCH (20:20)
[2024-04-24] MEDS: Heparin 5000 UNITS/ML 1 mL VIAL IV SCH (20:24)
[2024-04-25] MEDS: HYDROmorphone 0.5 MG/0.5 ML SYRINGE IV SLOW PU PRN (00:04)
[2024-04-25 05:56] LABS: Hemoglobin 9.5 g/dL (13.2-16.3); Mean Corpuscular Hemoglobin 30.5 pg (27-33); Mean Corpuscular Hgb Conc 32.9 g/dL (31-36); Mean Corpuscular Volume 92.5 fL (80-97); Mean Platelet Volume 8.3 fL (7.5-11.2); Platelet Count 253 10^3/uL (150-450); Red Blood Count 3.13 10^6/uL (4.06-5.63); Red Cell Distribution Width 19.1 % (12-17); White Blood Count 9.5 10^3/uL (3.6-10.2)
[2024-04-25 07:18] LABS: ABS Basophils 0.1 10^3/uL (0.0-0.1); ABS Eosinophils 0.5 10^3/uL (0.0-0.5); ABS Lymphocytes 1.3 10^3/uL (1.0-4.8); ABS Monocytes 1.1 10^3/uL (0.0-1.1); ABS Neutrophils 6.5 10^3/uL (1.5-7.6); ABS Nucleated RBC 0.01 10^3/ul; Eosinophil % 5.2 %; Lymphocyte % 13.4 %; Nucleated Red Blood Cells % 0.1 %/100WBC (0.0-0.8)
[2024-04-25 07:45] LABS: Calcium 9.4 mg/dL (8.6-10.3); Creatinine, Serum 5.93 mg/dL (0.67-1.17); Magnesium 1.8 mg/dL (1.9-2.7); Potassium 3.7 mmol/L (3.5-5.0); eGFR CKD-EPI 11.7 (>60)
[2024-04-25] MEDS: HYDROmorphone 1 MG/1 ML SYRINGE IV SLOW PU PRN ×2 (08:38→23:26)
[2024-04-25 09:44] LABS: XCalcitriol 19 pg/mL (18-64)
[2024-04-25] MEDS ORDERED: fentaNYL 250 mcg/5 ml 50 MCG/ML 5 ml VIAL (250 MCG) ONE ×2 (10:29→14:43)
[2024-04-25] MEDS ORDERED: Midazolam 5 mg/5 ml VIAL 1 mg/ml 5 ml VIAL (5 mg) ONE ×3 (10:29→15:41)
[2024-04-25] MEDS: Vancomycin Random Level NOTE FOLLOW UP ONE (14:05)
[2024-04-25] MEDS ORDERED: Alteplase (CATHFLO) 2 MG VIAL IV ONE (14:11)
[2024-04-25] MEDS: methylPREDNISolone SOD SUCC 125 mg 2 ML VIAL IV ONE (14:24)
[2024-04-25] MEDS ORDERED: Propofol 10 MG/ML 20 ML BTL ONE (14:30)
[2024-04-25] MEDS ORDERED: Glycopyrrolate IV 0.2 MG/ML 1 ML VIAL ONE (14:30)
[2024-04-25] MEDS ORDERED: Phenylephrine IV 10 MG/ML 1 ml VIAL ONE (14:30)
[2024-04-25] MEDS ORDERED: Heparin 1,000 UNIT/ML 10 ml (10,000 UNITS) CATHLAB/DIALYSIS ONE (14:36)
[2024-04-25] MEDS ORDERED: Lidocaine 1% VIAL 10 MG/ML 30 ML VIAL ONE (14:36)
[2024-04-25] MEDS ORDERED: Iohexol 350 (CONTRAST) 100 ML PAK IV ONE (14:38)
[2024-04-25] MEDS ORDERED: Heparin 2 UNITS/ML IVPREMIX 2,000 UNIT/1,000 ML BAG IV ONE (14:38)
[2024-04-25] MEDS ORDERED: Heparin 2 UNITS/ML IVPREMIX 1,000 UNIT/500 ML BAG IV ONE (16:04)
[2024-04-25] MEDS ORDERED: Vancomycin 500 MG in NS 0.9% 250 ML IVPB ONE (18:00)
[2024-04-25 18:08] LABS: Hematocrit 31.2 % (38-53); Mean Corpuscular Hemoglobin 29.6 pg (27-33); Mean Corpuscular Volume 92.3 fL (80-97); Platelet Count 274 10^3/uL (150-450); Red Blood Count 3.39 10^6/uL (4.06-5.63); Red Cell Distribution Width 19.6 % (12-17); White Blood Count 12.3 10^3/uL (3.6-10.2)
[2024-04-25 18:18] LABS: Activated Partial Thrombo Time 32.8 seconds (26.0-38.0); INR 1.14 (0.85-1.14)
[2024-04-25 18:26] LABS: Creatinine, Serum 6.38 mg/dL (0.67-1.17); eGFR CKD-EPI 10.7 (>60)
[2024-04-25 18:31] LABS: ABS Eosinophils 0.3 10^3/uL (0.0-0.5); ABS Lymphocytes 0.8 10^3/uL (1.0-4.8); ABS Monocytes 0.4 10^3/uL (0.0-1.1); ABS Neutrophils 10.8 10^3/uL (1.5-7.6); Anisocytosis 1+; Lymphocyte % 6.7 %
[2024-04-25] MEDS: Heparin DRIP 25,000 UNITS BAG 25,000 UNITS/250 ML BAG IV SCH (19:09)
[2024-04-25] MEDS: HYDROmorphone 1 MG/1 ML SYRINGE IV SLOW PU ONE (19:11)
[2024-04-26] MEDS: Heparin 5000 UNITS/ML 1 mL VIAL IV SCH (02:27)
[2024-04-26 07:01] LABS: Calcium 9.2 mg/dL (8.6-10.3); Creatinine, Serum 7.35 mg/dL (0.67-1.17); Magnesium 1.9 mg/dL (1.9-2.7); Potassium 4.8 mmol/L (3.5-5.0); Vancomycin Random 19.5 mcg/mL
[2024-04-26 08:34] LABS: Activated Partial Thrombo Time 62.4 seconds (26.0-38.0); INR 1.18 (0.85-1.14)
[2024-04-26] MEDS: Vancomycin 500 MG in NS 0.9% 250 ML IVPB ONE (15:09)
[2024-04-26] MEDS: Vancomycin Random Level NOTE FOLLOW UP ONE (18:31)
[2024-04-26] MEDS: ALTEPLASE ONE (20:48)
[2024-04-26] MEDS: STERILE WATER FOR INJ ONE (20:48)
[2024-04-27 04:58] LABS: ABS Basophils 0.1 10^3/uL (0.0-0.1); ABS Eosinophils 0.1 10^3/uL (0.0-0.5); ABS Lymphocytes 1.9 10^3/uL (1.0-4.8); ABS Monocytes 1.2 10^3/uL (0.0-1.1); ABS Neutrophils 7.9 10^3/uL (1.5-7.6); Hemoglobin 8.7 g/dL (13.2-16.3); Lymphocyte % 16.7 %; Mean Corpuscular Hgb Conc 33.6 g/dL (31-36); Mean Corpuscular Volume 92.3 fL (80-97); Mean Platelet Volume 7.9 fL (7.5-11.2); Platelet Count 347 10^3/uL (150-450); Red Blood Count 2.81 10^6/uL (4.06-5.63); Red Cell Distribution Width 19.7 % (12-17); White Blood Count 11.2 10^3/uL (3.6-10.2)
[2024-04-27 05:07] LABS: INR 1.19 (0.85-1.14)
[2024-04-27 05:52] LABS: Calcium 10.2 mg/dL (8.6-10.3); Creatinine, Serum 5.27 mg/dL (0.67-1.17); Magnesium 1.8 mg/dL (1.9-2.7); eGFR CKD-EPI 13.4 (>60)
[2024-04-27] MEDS: NS 0.9% 1000 ml BAG 100 ML IV PRN (13:09)
[2024-04-27] MEDS: Vancomycin Random Level NOTE FOLLOW UP ONE (14:36)
[2024-04-27 15:40] LABS: C Reactive Protein 62.12 mg/L (<8.01)
[2024-04-27] MEDS: Vancomycin 500 MG in NS 0.9% 250 ML IVPB ONE (16:02)
[2024-04-27] MEDS: Warfarin DAILY REMINDER **NOTE FOLLOW UP SCH (17:38)
[2024-04-28] MEDS: Lactated Ringers 1000 ml BAG 500 ML IV ONE (02:36)
[2024-04-28 06:34] LABS: ABS Basophils 0.1 10^3/uL (0.0-0.1); ABS Eosinophils 0.2 10^3/uL (0.0-0.5); ABS Lymphocytes 1.6 10^3/uL (1.0-4.8); ABS Neutrophils 6.3 10^3/uL (1.5-7.6); ABS Nucleated RBC 0.01 10^3/ul; Eosinophil % 1.7 %; Hematocrit 27.2 % (38-53); Hemoglobin 9.2 g/dL (13.2-16.3); Lymphocyte % 17.7 %; Mean Corpuscular Hemoglobin 31.3 pg (27-33); Mean Corpuscular Hgb Conc 33.7 g/dL (31-36); Mean Platelet Volume 7.7 fL (7.5-11.2); Nucleated Red Blood Cells % 0.1 %/100WBC (0.0-0.8); Platelet Count 361 10^3/uL (150-450); Red Blood Count 2.93 10^6/uL (4.06-5.63); Red Cell Distribution Width 19.2 % (12-17); White Blood Count 9.1 10^3/uL (3.6-10.2)
[2024-04-28 06:46] LABS: Activated Partial Thrombo Time 61.4 seconds (26.0-38.0); INR 1.17 (0.85-1.14)
[2024-04-28 07:57] LABS: Anion Gap 12 mmol/L (2-16); Blood Urea Nitrogen 25 mg/dL (6-24); CO2 Carbon Dioxide 27 mmol/L (22-32); Chloride 96 mmol/L (101-111); Creatinine, Serum 4.06 mg/dL (0.67-1.17); Glucose 77 mg/dL (70-100); Magnesium 1.6 mg/dL (1.9-2.7); Sodium 135 mmol/L (135-145); eGFR CKD-EPI 18.4 (>60)
[2024-04-28] MEDS: Magnesium Sulfate 2 gm BAG 2 GM/50 ML BAG IVPB ONE (08:48)
[2024-04-28] MEDS: Vancomycin Random Level NOTE FOLLOW UP ONE (18:45)
[2024-04-28] MEDS: Vancomycin 500 MG in NS 0.9% 250 ML IVPB ONE (18:57)
[2024-04-29 07:11] LABS: ABS Basophils 0.1 10^3/uL (0.0-0.1); ABS Eosinophils 0.2 10^3/uL (0.0-0.5); ABS Lymphocytes 1.2 10^3/uL (1.0-4.8); ABS Monocytes 0.8 10^3/uL (0.0-1.1); ABS Neutrophils 6.5 10^3/uL (1.5-7.6); Eosinophil % 1.9 %; Hemoglobin 8.8 g/dL (13.2-16.3); Lymphocyte % 13.6 %; Mean Corpuscular Hemoglobin 31.3 pg (27-33); Mean Corpuscular Hgb Conc 33.8 g/dL (31-36); Mean Corpuscular Volume 92.7 fL (80-97); Mean Platelet Volume 7.6 fL (7.5-11.2); Platelet Count 363 10^3/uL (150-450); Red Cell Distribution Width 19.4 % (12-17); White Blood Count 8.8 10^3/uL (3.6-10.2)
[2024-04-29 07:21] LABS: Activated Partial Thrombo Time 60.9 seconds (26.0-38.0); INR 1.21 (0.85-1.14)
[2024-04-29 07:44] LABS: Calcium 9.5 mg/dL (8.6-10.3); Creatinine, Serum 4.14 mg/dL (0.67-1.17); Magnesium 1.5 mg/dL (1.9-2.7); Potassium 3.9 mmol/L (3.5-5.0); Vancomycin Random 22.7 mcg/mL
[2024-04-29] MEDS: NS 0.9% 500 ml BAG 500 ML IV ONE (09:51)
[2024-04-29] MEDS: Vancomycin Random Level NOTE FOLLOW UP ONE (10:31)
[2024-04-29] MEDS: Magnesium Sulf 4 GM/100 ML IV 4,000 MG/100 ML BAG IVPB ONE (11:22)
[2024-04-29] MEDS: HYDROmorphone 1 MG/1 ML SYRINGE IV SLOW PU ONE (21:11)
[2024-04-30] MEDS: HYDROmorphone 1 MG/1 ML SYRINGE IV SLOW PU ONE (01:22)
[2024-04-30 06:24] LABS: Hematocrit 27.3 % (38-53); Hemoglobin 9.1 g/dL (13.2-16.3)
[2024-04-30 06:37] LABS: Activated Partial Thrombo Time 67.8 seconds (26.0-38.0); INR 1.2 (0.85-1.14)
[2024-04-30 06:47] LABS: Albumin 4.6 g/dL (3.2-5.2); Albumin/Globulin Ratio 1.5 (1-3); Calcium 10.3 mg/dL (8.6-10.3); Creatinine, Serum 5.97 mg/dL (0.67-1.17); Globulin 3.1 g/dL (2-4); Magnesium 2.7 mg/dL (1.9-2.7); Phosphorus 1.8 mg/dL (2.5-5.0); Potassium 4.2 mmol/L (3.5-5.0); Total Bilirubin 0.5 mg/dL (0.2-1.0); Total Protein 7.7 g/dL (6.4-8.9); eGFR CKD-EPI 11.6 (>60)
[2024-04-30] MEDS: Iodixanol (CONTRAST) 320 MG/ML 100 ML SDV IV ONE (07:59)
[2024-04-30 08:41] LABS: C Reactive Protein 57.37 mg/L (<8.01)
[2024-04-30] MEDS ORDERED: NS 0.9% 1000 ml BAG 200 ML IV PRN (14:29)
[2024-04-30] MEDS ORDERED: NS 0.9% 1000 ml BAG 100 ML IV PRN (14:29)
[2024-04-30] MEDS ORDERED: Heparin 1,000 UNIT/ML 10 ml (10,000 UNITS) CATHLAB/DIALYSIS DIALYSIS PRN (14:29)
[2024-04-30] MEDS: HYDROmorphone 1 MG/1 ML SYRINGE IV SLOW PU PRN (15:48)
[2024-05-01 06:25] LABS: ABS Basophils 0.1 10^3/uL (0.0-0.1); ABS Eosinophils 0.2 10^3/uL (0.0-0.5); ABS Lymphocytes 0.9 10^3/uL (1.0-4.8); ABS Monocytes 0.8 10^3/uL (0.0-1.1); ABS Neutrophils 5.9 10^3/uL (1.5-7.6); Eosinophil % 2.3 %; Hematocrit 25.6 % (38-53); Hemoglobin 8.6 g/dL (13.2-16.3); Lymphocyte % 11.9 %; Mean Corpuscular Hemoglobin 30.8 pg (27-33); Mean Corpuscular Hgb Conc 33.4 g/dL (31-36); Mean Corpuscular Volume 92.3 fL (80-97); Mean Platelet Volume 7.6 fL (7.5-11.2); Platelet Count 395 10^3/uL (150-450); Red Blood Count 2.77 10^6/uL (4.06-5.63); Red Cell Distribution Width 19.6 % (12-17)
[2024-05-01 06:52] LABS: Calcium 10.3 mg/dL (8.6-10.3); Creatinine, Serum 7.72 mg/dL (0.67-1.17); Magnesium 2.6 mg/dL (1.9-2.7); Potassium 4.7 mmol/L (3.5-5.0); Vancomycin Random 19.7 mcg/mL; eGFR CKD-EPI 8.5 (>60)
[2024-05-01 07:23] LABS: Activated Partial Thrombo Time 82.6 seconds (26.0-38.0); INR 1.39 (0.85-1.14)
[2024-05-01] MEDS: Vancomycin Random Level NOTE FOLLOW UP ONE (09:06)
[2024-05-01] MEDS: Albumin Human 25% 25 GM/100 ML BTL IV PRN (10:58)
[2024-05-01] MEDS: Vancomycin 500 MG in NS 0.9% 250 ML IVPB ONE (14:31)
[2024-05-02 06:27] LABS: ABS Basophils 0.1 10^3/uL (0.0-0.1); ABS Eosinophils 0.1 10^3/uL (0.0-0.5); ABS Lymphocytes 0.9 10^3/uL (1.0-4.8); ABS Monocytes 0.9 10^3/uL (0.0-1.1); ABS Neutrophils 4.4 10^3/uL (1.5-7.6); ABS Nucleated RBC 0.01 10^3/ul; Eosinophil % 2.2 %; Hemoglobin 8.1 g/dL (13.2-16.3); Lymphocyte % 14.4 %; Mean Corpuscular Hemoglobin 31.2 pg (27-33); Mean Corpuscular Hgb Conc 33.9 g/dL (31-36); Mean Corpuscular Volume 92.1 fL (80-97); Mean Platelet Volume 7.1 fL (7.5-11.2); Nucleated Red Blood Cells % 0.1 %/100WBC (0.0-0.8); Platelet Count 352 10^3/uL (150-450); Red Blood Count 2.61 10^6/uL (4.06-5.63); Red Cell Distribution Width 18.8 % (12-17); White Blood Count 6.6 10^3/uL (3.6-10.2)
[2024-05-02 06:39] LABS: Activated Partial Thrombo Time 75.5 seconds (26.0-38.0); INR 1.59 (0.85-1.14)
[2024-05-02 07:03] LABS: Calcium 9.1 mg/dL (8.6-10.3); Creatinine, Serum 5.65 mg/dL (0.67-1.17); Magnesium 2.1 mg/dL (1.9-2.7); Potassium 3.9 mmol/L (3.5-5.0); Vancomycin Random 20.1 mcg/mL; eGFR CKD-EPI 12.4 (>60)
[2024-05-02] MEDS: Vancomycin Random Level NOTE FOLLOW UP ONE (07:20)
[2024-05-02] MEDS: Vancomycin 500 MG in NS 0.9% 250 ML IVPB ONE (19:35)
[2024-05-03 06:50] LABS: ABS Basophils 0.1 10^3/uL (0.0-0.1); ABS Eosinophils 0.1 10^3/uL (0.0-0.5); ABS Lymphocytes 0.9 10^3/uL (1.0-4.8); ABS Neutrophils 3.7 10^3/uL (1.5-7.6); Eosinophil % 2.1 %; Hematocrit 24.4 % (38-53); Hemoglobin 8.3 g/dL (13.2-16.3); Lymphocyte % 15.9 %; Mean Corpuscular Hemoglobin 31.2 pg (27-33); Mean Corpuscular Hgb Conc 33.9 g/dL (31-36); Mean Corpuscular Volume 91.9 fL (80-97); Mean Platelet Volume 7.3 fL (7.5-11.2); Platelet Count 340 10^3/uL (150-450); Red Blood Count 2.65 10^6/uL (4.06-5.63); Red Cell Distribution Width 18.9 % (12-17); White Blood Count 5.8 10^3/uL (3.6-10.2)
[2024-05-03 06:56] LABS: Activated Partial Thrombo Time 84.5 seconds (26.0-38.0); INR 1.69 (0.85-1.14)
[2024-05-03 07:47] LABS: Calcium 9.4 mg/dL (8.6-10.3); Creatinine, Serum 5.05 mg/dL (0.67-1.17); Magnesium 1.9 mg/dL (1.9-2.7); Potassium 4.1 mmol/L (3.5-5.0); Vancomycin Random 22.3 mcg/mL; eGFR CKD-EPI 14.2 (>60)
[2024-05-03] MEDS: Vancomycin Random Level NOTE FOLLOW UP ONE (08:02)
[2024-05-03] MEDS ORDERED: Warfarin per PHARMACY **NOTE FOLLOW UP SCH (17:24)
[2024-05-03] MEDS: Vancomycin 500 MG in NS 0.9% 250 ML IVPB ONE (17:34)
[2024-05-04 06:24] LABS: ABS Basophils 0.1 10^3/uL (0.0-0.1); ABS Eosinophils 0.1 10^3/uL (0.0-0.5); ABS Lymphocytes 0.9 10^3/uL (1.0-4.8); ABS Monocytes 0.9 10^3/uL (0.0-1.1); ABS Neutrophils 4.1 10^3/uL (1.5-7.6); Eosinophil % 1.8 %; Hematocrit 23.6 % (38-53); Hemoglobin 7.8 g/dL (13.2-16.3); Lymphocyte % 14.2 %; Mean Corpuscular Hemoglobin 30.2 pg (27-33); Mean Corpuscular Hgb Conc 33.2 g/dL (31-36); Mean Corpuscular Volume 91.2 fL (80-97); Mean Platelet Volume 7.5 fL (7.5-11.2); Platelet Count 323 10^3/uL (150-450); Red Blood Count 2.59 10^6/uL (4.06-5.63); Red Cell Distribution Width 18.8 % (12-17); White Blood Count 6.1 10^3/uL (3.6-10.2)
[2024-05-04 06:27] LABS: Activated Partial Thrombo Time 78.8 seconds (26.0-38.0); INR 1.7 (0.85-1.14)
[2024-05-04 06:43] LABS: Calcium 9.8 mg/dL (8.6-10.3); Creatinine, Serum 4.14 mg/dL (0.67-1.17); Magnesium 1.6 mg/dL (1.9-2.7); Potassium 3.9 mmol/L (3.5-5.0)
[2024-05-04] MEDS: Magnesium Sulfate 2 gm BAG 2 GM/50 ML BAG IVPB ONE (08:20)
[2024-05-04] MEDS: Vancomycin 500 MG in NS 0.9% 250 ML IVPB ONE (16:08)
[2024-05-04] MEDS: Vancomycin Random Level NOTE FOLLOW UP ONE (18:13)
[2024-05-05 06:19] LABS: ABS Basophils 0.1 10^3/uL (0.0-0.1); ABS Eosinophils 0.2 10^3/uL (0.0-0.5); ABS Monocytes 0.9 10^3/uL (0.0-1.1); ABS Neutrophils 3.6 10^3/uL (1.5-7.6); Eosinophil % 2.9 %; Hematocrit 25.2 % (38-53); Hemoglobin 8.6 g/dL (13.2-16.3); Lymphocyte % 16.8 %; Mean Corpuscular Hemoglobin 31.3 pg (27-33); Mean Corpuscular Hgb Conc 34.1 g/dL (31-36); Mean Corpuscular Volume 91.6 fL (80-97); Mean Platelet Volume 8.1 fL (7.5-11.2); Platelet Count 319 10^3/uL (150-450); Red Blood Count 2.76 10^6/uL (4.06-5.63); White Blood Count 5.7 10^3/uL (3.6-10.2)
[2024-05-05 06:25] LABS: Activated Partial Thrombo Time 70.4 seconds (26.0-38.0); INR 1.81 (0.85-1.14)
[2024-05-05 06:34] LABS: Calcium 10.8 mg/dL (8.6-10.3); Creatinine, Serum 4.24 mg/dL (0.67-1.17); Magnesium 2.1 mg/dL (1.9-2.7); Potassium 4.3 mmol/L (3.5-5.0); eGFR CKD-EPI 17.5 (>60)
[2024-05-05] MEDS: Pentafluoroprop/Tetrafluoro 1 SPRAY TOP.SPRAY TOPICAL PRN (09:15)
[2024-05-05] MEDS: Vancomycin 500 MG in NS 0.9% 250 ML IVPB ONE (17:39)
[2024-05-06 07:00] LABS: ABS Basophils 0.1 10^3/uL (0.0-0.1); ABS Eosinophils 0.2 10^3/uL (0.0-0.5); ABS Lymphocytes 0.8 10^3/uL (1.0-4.8); ABS Monocytes 0.6 10^3/uL (0.0-1.1); ABS Neutrophils 3.1 10^3/uL (1.5-7.6); Eosinophil % 3.3 %; Hematocrit 24.9 % (38-53); Hemoglobin 8.6 g/dL (13.2-16.3); Lymphocyte % 16.8 %; Mean Corpuscular Hemoglobin 31.2 pg (27-33); Mean Corpuscular Hgb Conc 34.4 g/dL (31-36); Mean Corpuscular Volume 90.6 fL (80-97); Mean Platelet Volume 7.3 fL (7.5-11.2); Platelet Count 319 10^3/uL (150-450); Red Blood Count 2.75 10^6/uL (4.06-5.63); White Blood Count 4.8 10^3/uL (3.6-10.2)
[2024-05-06 07:11] LABS: Activated Partial Thrombo Time 94.7 seconds (26.0-38.0); INR 1.77 (0.85-1.14)
[2024-05-06 08:40] LABS: Calcium 10.8 mg/dL (8.6-10.3); Creatinine, Serum 3.78 mg/dL (0.67-1.17); Magnesium 1.8 mg/dL (1.9-2.7); Potassium 3.8 mmol/L (3.5-5.0)
[2024-05-06] MEDS: Magnesium Sulfate IV 1GM/100ML 1 GM/100 ML BAG IV ONE (11:46)
[2024-05-07 06:49] LABS: ABS Basophils 0.2 10^3/uL (0.0-0.1); ABS Eosinophils 0.2 10^3/uL (0.0-0.5); ABS Lymphocytes 0.9 10^3/uL (1.0-4.8); ABS Monocytes 0.7 10^3/uL (0.0-1.1); ABS Neutrophils 3.8 10^3/uL (1.5-7.6); Eosinophil % 3.6 %; Hemoglobin 8.3 g/dL (13.2-16.3); Mean Corpuscular Hgb Conc 34.5 g/dL (31-36); Mean Corpuscular Volume 89.7 fL (80-97); Mean Platelet Volume 7.7 fL (7.5-11.2); Platelet Count 277 10^3/uL (150-450); Red Blood Count 2.68 10^6/uL (4.06-5.63); Red Cell Distribution Width 17.8 % (12-17); White Blood Count 5.7 10^3/uL (3.6-10.2)
[2024-05-07 07:00] LABS: Activated Partial Thrombo Time 95.9 seconds (26.0-38.0); INR 1.77 (0.85-1.14)
[2024-05-07 08:25] LABS: Calcium 10.4 mg/dL (8.6-10.3); Creatinine, Serum 5.71 mg/dL (0.67-1.17); Magnesium 2.1 mg/dL (1.9-2.7); Potassium 3.9 mmol/L (3.5-5.0); eGFR CKD-EPI 12.2 (>60)
[2024-05-07] MEDS ORDERED: Senna TAB 8.6 mg TAB PO PRN (13:45)
[2024-05-07] MEDS: HYDROmorphone 1 MG/1 ML SYRINGE IV SLOW PU PRN ×2 (17:04→20:33)
[2024-05-07] MEDS: HYDROmorphone 1 MG/1 ML SYRINGE IV SLOW PU ONE (18:26)
[2024-05-08 06:42] LABS: Activated Partial Thrombo Time 63.3 seconds (26.0-38.0); INR 1.65 (0.85-1.14)
[2024-05-08 07:06] LABS: Calcium 9.7 mg/dL (8.6-10.3); Creatinine, Serum 7.46 mg/dL (0.67-1.17); Magnesium 2.1 mg/dL (1.9-2.7); Potassium 4.3 mmol/L (3.5-5.0); Vancomycin Random 18.6 mcg/mL; eGFR CKD-EPI 8.9 (>60)
[2024-05-08] MEDS: Vancomycin Random Level NOTE FOLLOW UP ONE (16:00)
[2024-05-08] MEDS: Vancomycin 500 MG in NS 0.9% 250 ML IVPB ONE (16:00)
[2024-05-09 06:37] LABS: Activated Partial Thrombo Time 68.8 seconds (26.0-38.0); INR 1.65 (0.85-1.14)
[2024-05-09] MEDS: Vancomycin Random Level NOTE FOLLOW UP ONE (19:51)
[2024-05-09] MEDS: Vancomycin 500 MG in NS 0.9% 250 ML IVPB ONE (21:51)
[2024-05-10 06:38] LABS: ABS Basophils 0.1 10^3/uL (0.0-0.1); ABS Eosinophils 0.5 10^3/uL (0.0-0.5); ABS Lymphocytes 0.9 10^3/uL (1.0-4.8); ABS Monocytes 0.7 10^3/uL (0.0-1.1); ABS Neutrophils 3.9 10^3/uL (1.5-7.6); ABS Nucleated RBC 0.01 10^3/ul; Eosinophil % 7.6 %; Hematocrit 23.4 % (38-53); Hemoglobin 8.1 g/dL (13.2-16.3); Lymphocyte % 14.8 %; Mean Corpuscular Hemoglobin 30.8 pg (27-33); Mean Corpuscular Hgb Conc 34.4 g/dL (31-36); Mean Corpuscular Volume 89.5 fL (80-97); Mean Platelet Volume 8.1 fL (7.5-11.2); Nucleated Red Blood Cells % 0.1 %/100WBC (0.0-0.8); Platelet Count 285 10^3/uL (150-450); Red Blood Count 2.62 10^6/uL (4.06-5.63); Red Cell Distribution Width 18.1 % (12-17)
[2024-05-10 06:46] LABS: INR 1.74 (0.85-1.14)
[2024-05-10 06:53] LABS: Calcium 9.3 mg/dL (8.6-10.3); Creatinine, Serum 5.49 mg/dL (0.67-1.17); Magnesium 1.8 mg/dL (1.9-2.7); Potassium 3.9 mmol/L (3.5-5.0); Vancomycin Random 25.7 mcg/mL; eGFR CKD-EPI 12.8 (>60)
[2024-05-10] MEDS ORDERED: NS 0.9% 1000 ml BAG 200 ML IV PRN (12:50)
[2024-05-10] MEDS: CALCIUM GLUCONATE 1GM/50ML NS 1 GM/50 ML BAG IV ONE (15:41)
[2024-05-10] MEDS ORDERED: Vancomycin 500 MG in NS 0.9% 250 ML IVPB ONE (16:00)
[2024-05-10] MEDS: Vancomycin 500 MG in NS 0.9% 250 ML IVPB ONE (17:06)
[2024-05-11 06:46] LABS: Activated Partial Thrombo Time 59.8 seconds (26.0-38.0); INR 1.62 (0.85-1.14)
[2024-05-11 07:27] LABS: C Reactive Protein 99.46 mg/L (<8.01); Calcium 9.7 mg/dL (8.6-10.3); Creatinine, Serum 4.48 mg/dL (0.67-1.17); Magnesium 1.7 mg/dL (1.9-2.7); Potassium 4.3 mmol/L (3.5-5.0); Vancomycin Random 21.8 mcg/mL; eGFR CKD-EPI 16.3 (>60)
[2024-05-11] MEDS: Vancomycin Random Level NOTE FOLLOW UP ONE (07:43)
[2024-05-11] MEDS: Lidocaine PATCH 5% PATCH TRANSDERM SCH (18:10)
[2024-05-12 06:02] LABS: ABS Basophils 0.1 10^3/uL (0.0-0.1); ABS Eosinophils 0.7 10^3/uL (0.0-0.5); ABS Lymphocytes 1.1 10^3/uL (1.0-4.8); ABS Monocytes 0.6 10^3/uL (0.0-1.1); ABS Neutrophils 2.8 10^3/uL (1.5-7.6); Hematocrit 22.5 % (38-53); Hemoglobin 7.5 g/dL (13.2-16.3); Lymphocyte % 21.4 %; Mean Corpuscular Hemoglobin 29.9 pg (27-33); Mean Corpuscular Hgb Conc 33.2 g/dL (31-36); Mean Corpuscular Volume 90.1 fL (80-97); Mean Platelet Volume 7.7 fL (7.5-11.2); Platelet Count 254 10^3/uL (150-450); Red Cell Distribution Width 18.4 % (12-17); White Blood Count 5.2 10^3/uL (3.6-10.2)
[2024-05-12 06:07] LABS: Activated Partial Thrombo Time 65.2 seconds (26.0-38.0); INR 1.76 (0.85-1.14)
[2024-05-12 06:24] LABS: Calcium 9.2 mg/dL (8.6-10.3); Creatinine, Serum 6.53 mg/dL (0.67-1.17); Magnesium 1.5 mg/dL (1.9-2.7); eGFR CKD-EPI 10.4 (>60)
[2024-05-12] MEDS: CALCIUM GLUCONATE 1GM/50ML NS 1 GM/50 ML BAG IV ONE (08:44)
[2024-05-12] MEDS: Albumin Human 25% 25 GM/100 ML BTL IV PRN (11:01)
[2024-05-12] MEDS: NS 0.9% 1000 ml BAG 100 ML IV PRN (11:35)
[2024-05-12] MEDS ORDERED: Warfarin per PHARMACY **NOTE FOLLOW UP SCH ×2 (16:00→17:00)
[2024-05-12] MEDS: Vancomycin 500 MG in NS 0.9% 250 ML IVPB ONE (16:20)
[2024-05-12] MEDS: Vancomycin Random Level NOTE FOLLOW UP ONE (16:32)
[2024-05-13 06:25] LABS: Activated Partial Thrombo Time 76.4 seconds (26.0-38.0); INR 2.04 (0.85-1.14)
[2024-05-13] MEDS ORDERED: HYDROmorphone 1 MG/1 ML SYRINGE IV SLOW PU PRN (10:42)
[2024-05-13] MEDS: HYDROmorphone 1 MG/1 ML SYRINGE IV SLOW PU PRN ×2 (10:57→15:50)
[2024-05-13] MEDS ORDERED: Naloxone Nasal Spray 4 MG/0.1 ML NASAL.SPR INTRANASAL PRN (15:25)
[2024-05-14 06:41] LABS: Calcium 9.4 mg/dL (8.6-10.3); Creatinine, Serum 6.45 mg/dL (0.67-1.17); Potassium 4.5 mmol/L (3.5-5.0); eGFR CKD-EPI 10.6 (>60)
[2024-05-14 07:04] LABS: Activated Partial Thrombo Time 80.7 seconds (26.0-38.0); INR 2.07 (0.85-1.14)
[2024-05-14 09:25] VITALS: BP 101/54
[2024-05-15] MEDS ORDERED: Vancomycin Random Level NOTE FOLLOW UP ONE (06:00)
== END 2024-05-14 13:16 | disposition home or self-care (01) | DRG 270 ==
LOC: EDHOLD 14:51 → ED 14:51 → SUATTDRO 04-20 00:37 → MEDTELE 04-20 17:08 → SUATTDRO 04-20 17:32 → MEDTELE 04-20 17:41
PROVIDERS: ADMIT Hospitalist; ATTEND Internal Medicine
PROC: ANG.PRO (2024-04-25 14:45)